=== PATIENT | female | born 1950 | race Caucasian/White ===

== ENCOUNTER 2018-07-03 15:48 | Outpatient (REF) | payer MEDICARE, OTHER, SELFPAY ==
[2018-07-03 22:30] LABS: Abs Immature Grans 0.02 k/cumm (0.0-0.09); Absolute Basophil Count 0.04 k/cumm (0.0-0.2); Absolute Lymphocyte Count 1.82 k/cumm (1.2-3.4); Absolute Monocyte Count 0.69 k/cumm (0.11-0.7); Basophils % 0.5; Eosinophils % 1.3; HCT 50.3 % (36.0-46.0); HGB 17.2 g/dL (12.0-15.5); Immature Grans % 0.3; Lymphocytes % 23.4; Mean Corp. HGB Concentration 34.2 g/dL (32.0-36.0); Mean Corpuscular Hemoglobin 30.8 pg (27.0-33.0); Monocytes % 8.9; Neutrophils % 65.6; Platelet Count 247 x1000/uL (130-400); RBC 5.59 m/cumm (4.00-5.20); RBC Distribution Width 12.9 % (11.7-14.6); White Blood Cell Count 7.77 k/cumm (4.4-10.8)
[2018-07-03 22:41] LABS: Hemoglobin A1C 6.6 % (4.5-6.2)
[2018-07-03 22:48] LABS: ALT 38 U/L (12-78); AST 25 U/L (15-37); Alkaline Phosphatase 85 U/L (46-116); BUN 22 mg/dL (7-18); Bilirubin, Total 0.9 mg/dL (0.2-1.0); CREATININE 1.11 mg/dL (0.55-1.02); Calcium 9.7 mg/dL (8.5-10.1); Chloride 100 mmol/L (98-107); Cholesterol 282 mg/dL (50-200); Estimated GFR 49.03 (mL/min/1.73m2); Glucose 97 mg/dL (70-100); HDL Cholesterol 40 mg/dL (40-60); LDL CHOLESTEROL 201 mg/dL (<100); Magnesium 1.8 mg/dL (1.8-2.4); Potassium 3.7 mmol/L (3.5-5.1); Sodium 140 mmol/L (136-145); TSH (W/Ref FT4) 0.84 uIU/mL (0.358-3.74); Total Protein 7.7 g/dL (6.4-8.2); Triglyceride 325 mg/dL (30-150)
== END 2018-07-03 16:08 ==
LOC: NCHCN 15:48
PROVIDERS: Visit Provider Family Medicine
DX: E78.5 Hyperlipidemia, unspecified (principal); E11.9 Type 2 diabetes mellitus without complications; D45 Polycythemia vera; E66.9 Obesity, unspecified
CPT/HCPCS: 80053; 80061; 83721; 83036; 83735; 84443; 85025

== ENCOUNTER 2018-12-21 07:00 | Inpatient (IN) | payer MEDICARE, OTHER, SELFPAY ==
[2018-12-21] VITALS (119 sets, daily range): BP systolic 112–219; BP diastolic 62–164; PULSE 59–179; RESP 14–39; TEMP 36.8–37.4; O2SAT 83–95
[2018-12-21] MEDS: dilTIAZem 25 MG/5 ML VIAL 20 MG IVP (07:38)
[2018-12-21 07:51] LABS: Abs Immature Grans 0.03 k/cumm (0.0-0.09); Absolute Basophil Count 0.01 k/cumm (0.0-0.2); Absolute Eosinophil Count 0.01 k/cumm (0.0-0.7); Absolute Lymphocyte Count 1.09 k/cumm (1.2-3.4); Absolute Monocyte Count 0.83 k/cumm (0.11-0.7); Basophils % 0.1; Eosinophils % 0.1; HCT 49.4 % (36.0-46.0); HGB 16.8 g/dL (12.0-15.5); Immature Grans % 0.3; Lymphocytes % 9.3; Mean Corpuscular Hemoglobin 30.1 pg (27.0-33.0); Mean Corpuscular Volume 88.4 fL (80-95); Mean Platelet Volume 11.3 fL (8.0-11.0); Monocytes % 7.1; Neutrophils % 83.1; Platelet Count 233 x1000/uL (130-400); RBC 5.59 m/cumm (4.00-5.20); RBC Distribution Width 13.5 % (11.7-14.6); White Blood Cell Count 11.71 k/cumm (4.4-10.8)
[2018-12-21 07:53] LABS: Absolute Neutrophil Count 9.73 k/cumm (1.2-6.7)
[2018-12-21 08:03] LABS: INR 1.1 (0.9-1.1); PTT Activated 25.2 sec (21.0-31.4); Prothrombin Time 10.7 sec (9.3-11.0)
--- NOTE | 2018-12-21 08:06 | DI.RAD_ITS ---
SYMPTOM/DIAGNOSIS: COUGH CHEST: Portable AP view. Comparison 10/01/14. Heart size and pulmonary vasculature appear stable. Sternal wires are in place. The lungs show no focal consolidating infiltrates, No effusions or pneumothoraces are identified. There is plate atelectasis seen in the left mid lung. IMPRESSION: No definite acute pulmonary process.
--- NOTE | 2018-12-21 08:13 | ED.GENADUL_ITS ---
Discharge Plan Disposition Patient Disposition: [facility] INPATIENT Condition: Stable Discharge Details Chief Complaint: SOB Clinical Impression: Atrial fibrillation with rapid ventricular response Primary Care Provider: Kamilla Silvestre ED Midlevel Provider: Roland Gonzales ED Provider: Provider,Temporary Home Meds and New Rx's Prescriptions: No Action Eliquis 5 MG tablet 5 mg PO BID Qty: 60 RF: 11 lisinopril 20 MG tablet 10 mg PO DAILY RF: 0 metoprolol succinate 50 MG tablet extended release 24 hr 100 mg PO DAILY RF: 0 aspirin 325 MG tablet 325 mg PO DAILY AM RF: 0 nitroglycerin 0.4 MG tablet, sublingual 0.4 mg Sublingual PER PROTOCOL RF: 0 cholecalciferol (vitamin D3) 1,000 UNITS tablet 1,000 units PO DAILY RF: 0 metformin 500 mg Tablet 500 mg PO DAILY RF: 0 hydrochlorothiazide 25 mg Tablet 25 mg PO DAILY RF: 0 calcium carbonate 430 mg calcium (1,000 mg) Tablet,Chewable 1,000 mg PO DAILY RF: 0 Medical Decision Making 68 yo female with hx of afib on eliquis, cad, htn, comes in with 3 days of slowly worsening shortness of breath. She arrives with afib in HR 140-170 other garcia stable bP. She also has had a productive cough, no recent travel or immobilization. She Is speaking in full sentences, diminished breath sounds at bases bilaterally, no calf tenderness or pleuritic chest pain. suspect her symptoms are due to her afib with rvr. Will eval for anemia, electrolyte abnormalities and also obtain xray to eval for pna and tx her afib with rvr with dilt pt's labs show mild low mag otherwise unremarkable, HR now in 110-130 range on diltiazem drip. Feels much better with lower HR. Will admit for afib with rvr Differential Diagnosis afib with rvr, electrolyte abnormality, acs Medical Records Medical records reviewed: Yes I reviewed the patient's medical records. Imaging Data Radiologic Study: Attestation: I personally reviewed and interpreted this imaging study as follows: Imaging: X-Ray My impression: no acute findings Lab Data Lab results reviewed: Yes I reviewed the patient's lab results. ECG Data Attestation: I personally reviewed and interpreted this ECG (s) as follows: Prior ECG tracings: not available for review Interpretation: afib, rates of 157, qtc 443 HPI General Mode of arrival: wheelchair . Date/Time Provider Initiated Documentation: 12/21/18 07:42 . Limitations to Documentation: no limitations . Information obtained by: patient . History of Present Illness 68 year old F presents to the emergency department with the chief complaint of shortness of breath, described as moderate, Patient reports no radiation. Patient started experiencing this day(s) (3) and it has been constant. No relieving factors improve symptom(s), No exacerbating factors reported . Patient notes cough. Patient did receive the following treatments prior to arrival, none Related Data Home Medications Medication Instructions Recorded Confirmed aspirin 325 mg PO DAILY AM 11/29/12 12/21/18 lisinopril 10 mg PO DAILY 11/29/12 12/21/18 metoprolol succinate 100 mg PO DAILY 11/29/12 12/21/18 nitroglycerin 0.4 mg SUBLINGUAL PER PROTOCOL 11/29/12 12/21/18 cholecalciferol (vitamin D3) 1,000 units PO DAILY 09/26/13 12/21/18 apixaban [Eliquis] 5 mg PO BID #60 tab-cap 10/21/16 12/21/18 calcium carbonate 1,000 mg PO DAILY 12/21/18 12/21/18 hydrochlorothiazide 25 mg PO DAILY 12/21/18 12/21/18 metformin 500 mg PO DAILY 12/21/18 12/21/18 Allergies Allergy/AdvReac Type Severity Reaction Status Date / Time iohexol [From Omnipaque 140] Allergy Skin Rash Verified 12/21/18 08:03 Sulfa (Sulfonamide Allergy Unverified 12/21/18 08:03 Antibiotics) erythromycin base AdvReac GI Unverified 12/21/18 08:03 [Erythromycin Base] metal Allergy Intermediate Skin Rash Uncoded 12/21/18 08:03 General Stated Complaint: SOB JOSE DE JESUS: 2 Review of Systems Review of Systems All systems reviewed & are unremarkable except as noted in HPI and below Constitutional Denies chills, Denies fever(s) and Denies weakness Cardiovascular Denies chest pain Gastrointestinal Denies abdominal pain, Denies nausea and Denies vomiting Genitourinary Denies dysuria Musculoskeletal Denies joint swelling Integumentary/Breasts Denies rash Neurologic Denies weakness PFSH Social History Smoking/Tobacco Use Status: Former Tobacco Use Alcohol Intake: never Drug use: Never Do you feel safe at home: Yes Exam Const General: no acute distress Orientation: alert HENMT Head: normal to inspection Ears: external ears normal General nose exam: external nose normal Mouth: moist mucous membranes Eyes General: appearance normal, both eyes and all related structures Neck Neck: normal visual inspection Resp Effort & Inspection: normal respiratory effort and able to speak in complete sentences Cardio Rate: tachycardic Skin General skin exam: no rashes or lesions noted Neuro General: alert and oriented x3 Extrem General: normal to inspection Psych Mental Status: mental status grossly normal Course Vital Signs Respiratory Rate 24 12/21/18 06:59 Pulse Oximetry 95 12/21/18 06:59 Temperature 37.3 C 12/21/18 07:07 Temperature Source Tympanic 12/21/18 07:07 Pulse 160 H 12/21/18 07:38 Pulse 138 H 12/21/18 07:40 Respiratory Rate 23 12/21/18 07:40 Blood Pressure 151/84 H 12/21/18 07:38 Blood Pressure Mean 110 12/21/18 07:31 Pulse Oximetry 93 L 12/21/18 07:40 Oxygen Delivery Method Room Air 12/21/18 07:07 Oxygen Flow Rate 0 12/21/18 07:07 Pain Level 0 12/21/18 07:07 Lab/Test Results Lab/Test Results: Laboratory Tests Range/Units 12/21/18 12/21/18 12/21/18 07:18 07:38 07:38 WBC (4.4-10.8) k/cumm 11.71 H RBC (4.00-5.20) m/cumm 5.59 H Hgb (12.0-15.5) g/dL 16.8 H Hct (36.0-46.0) % 49.4 H MCV (80-95) fL 88.4 MCH (27.0-33.0) pg 30.1 MCHC (32.0-36.0) g/dL 34.0 RDW (11.7-14.6) % 13.5 Plt Count (130-400) x1000/uL 233 MPV (8.0-11.0) fL 11.3 H Immature Gran % 0.3 Neutrophils % 83.1 Lymphocytes % 9.3 Monocytes % 7.1 Eosinophils % 0.1 Basophils % 0.1 Absolute Neutrophils (1.2-6.7) k/cumm 9.73 H Absolute Lymphocytes (1.2-3.4) k/cumm 1.09 L Absolute Monocytes (0.11-0.7) k/cumm 0.83 H Absolute Eosinophils (0.0-0.7) k/cumm 0.01 Absolute Basophils (0.0-0.2) k/cumm 0.01 PT (9.3-11.0) sec 10.7 INR (0.9-1.1) 1.1 APTT (21.0-31.4) sec 25.2 Sodium Cancelled Potassium Cancelled Chloride Cancelled Carbon Dioxide Cancelled Anion Gap Cancelled BUN Cancelled Creatinine Cancelled Estimated GFR/1.73 m2 Cancelled Glucose Cancelled Calcium Cancelled Total Bilirubin Cancelled AST Cancelled ALT Cancelled Alkaline Phosphatase Cancelled Total Protein Cancelled Albumin Cancelled Critical Care Time Critical Care Time: Yes Total Critical Care Time: 60 (minutes) Attestation: time spent initiating iv diltiazem in patient with afib with rapid verntricular response, ekg and lab review, and frequent reassessments/hd monitoring in patient with potential to deteriorate at any time
[2018-12-21 08:20] LABS: ALT 114 U/L (12-78); AST 47 U/L (15-37); Albumin 3.3 g/dL (3.4-5.0); Alkaline Phosphatase 87 U/L (46-116); Anion Gap 12.9 mmol/L (3-11); BUN 17 mg/dL (7-18); Bilirubin, Total 1.6 mg/dL (0.2-1.0); CO2 25.1 mmol/L (21.0-32.0); CREATININE 1.48 mg/dL (0.55-1.02); Calcium 8.8 mg/dL (8.5-10.1); Chloride 101 mmol/L (98-107); Estimated GFR 35.07 (mL/min/1.73m2); Glucose 204 mg/dL (70-100); Magnesium 1.7 mg/dL (1.8-2.4); NT-proBNP 5560 pg/mL; Potassium 3.8 mmol/L (3.5-5.1); Sodium 139 mmol/L (136-145); Total Protein 7.1 g/dL (6.4-8.2); Troponin I 0.03 ng/mL (0.00-0.06)
[2018-12-21] MEDS: dilTIAZem 125 MG in Normal Saline 100 ML IV (08:35)
--- NOTE | 2018-12-21 08:55 | NUR.NOTE ---
pt provided with meal tray Nursing Note:
[2018-12-21] MEDS: MAGNESIUM SULFATE 2 GM/50 ML BAG IVPB (09:31)
[2018-12-21] MEDS: Furosemide 20 MG/2 ML VIAL IVP (09:58)
[2018-12-21 10:38] LABS: Bilirubin Negative (Negative); Blood Trace-lysed (Negative); Clarity Clear; Glucose Negative (Negative); Ketones Negative (Negative); Leukocyte Esterase Negative (Negative); Nitrite Negative (Negative); Urobilinogen 0.2 EU/dL (Up TO 0.2); pH 5.5 (5-8)
[2018-12-21 10:54] LABS: Bacteria Rare HPF (Negative); C & S Indicated? C&S Done As Ordered; Casts Negative LPF (Negative); Crystals Negative HPF (Negative); Epithelial Cells Negative HPF (Negative); Mucus Negative (Negative); Other Cells Few Renal (Negative)
--- NOTE | 2018-12-21 12:37 | W.PM.HP.N ---
Date of service: 12/21/18 Time of Service: 12:37 Assessment and Plan (1) Sepsis: Current visit: Yes Status: Acute Likely due to bronchitis. Obtain blood cultures, sputum C&S. Treat with empiric doxycycline, rocephin. Provide antitussives, steroids, nebs. (2) Rapid atrial fibrillation: Current visit: Yes Status: Acute Likely due to above. Treat above infection. Wean from cardizem gtt as tolerated. Resumed home metoprolol. Continue anticoagulation. (3) Acute bronchitis: Current visit: Yes Status: Acute As above (4) Acute CHF: Current visit: Yes Status: Acute Likely due to rapid ventricular rate. S/p 1 dose of lasix in ED. Monitor I/O's, daily weights. May require more diuresis. Check echo. Check TSH. R/o ACS. (5) Hemoptysis: Current visit: Yes Status: Acute Mild, in setting of anticoagulation - will monitor for recurrence - if significant, will hold anticoagulation. (6) Prediabetes: Current visit: Yes Status: Acute Hold metformin. We expect steroid-induced hyperglycemia. Provide SSI. (7) Obstructive sleep apnea: Current visit: Yes Status: Suspected Needs an outpatient sleep studies. (8) Erythrocytosis: Current visit: Yes Status: Chronic Suspect patient has pulmonary hypertension due to JESICA. Will need a sleep study; echo is being obtained. (9) Abnormal LFTs: Current visit: Yes Status: Acute Etiology unclear. Patient reports no symptoms. Will trend. Consider imaging if sx occur. Will check hepatitis panel. (10) Hypomagnesemia: Current visit: Yes Status: Acute replete and monitor (11) Discharge planning issues: Current visit: Yes Status: Acute Advanced directives discussed. The patient would like to be DNR/DNI. She does not have a COLST form with her; she is not sure if there is a document. Being admitted to the ICU for cardizem gtt. (12) DVT prophylaxis: Current visit: Yes Status: Acute Continue home therapeutic eliquis History of Present Illness Chief Complaint: I thought I had a cold or a pneumonia Narrative: Ms Davis is a 68 year old female with PMHx of CAD s/p 2 stents, chronic Afib on anticoagulation with eliquis, prediabetes, Hypertension, CKD, who presented to [facility] ED today complaining of shortness of breath, productive cough with green blood-tinged sputum, and wheezing for several days, so bad today that she had to come to the hospital. She did not have any chest pain, dizziness, or palpitations. She was surprised to find out that she was in Rapid Afib with HR of 160's. She was treated with cardizem bolus and drip. We were asked to admit the patient for further care. The patient states that she also has had rhinorrhea, sore throat, some ankle swelling. She denies abdominal pain, urinary symptoms, diarrhea, constipation, or blood in stool. Review of Systems Review of Systems 12 systems reviewed. Pertinent positives and negatives are as per HPI. PFSH Medical History Atrial fibrillation (Chronic 04/29/14) Hypertension (Chronic) CAD (coronary artery disease) (Chronic) Obesity (Chronic) BMI 33.0-33.9,adult (Chronic) Tobacco abuse (Resolved) Osteoarthritis (Chronic) H/O hypercalcemia (Chronic) H/O hyperparathyroidism (Chronic) Elevated hematocrit (Chronic) Elevated hemoglobin (Chronic) Impaired fasting glucose (Chronic) Metabolic syndrome (Chronic) Hypertensive CKD (chronic kidney disease) (Chronic) Surgical History H/O parathyroidectomy (Chronic) Hx of cardiac cath (Chronic) H/O benign neoplasm (Resolved) Family History Other Heart disease Social History Smoking/Tobacco Use Status: Former Tobacco Use Alcohol Intake: never Drug use: Never Do you feel safe at home: Yes Meds Home Medications Medication Instructions Recorded Confirmed Type aspirin 325 mg PO DAILY AM 11/29/12 12/21/18 History nitroglycerin 0.4 mg SUBLINGUAL PER PROTOCOL 11/29/12 12/21/18 History cholecalciferol (vitamin D3) 1,000 units PO DAILY 09/26/13 12/21/18 History apixaban [Eliquis] 5 mg PO BID #60 tab-cap 10/21/16 12/21/18 History calcium carbonate 1,000 mg PO DAILY 12/21/18 12/21/18 History hydrochlorothiazide 25 mg PO DAILY PRN PRN 12/21/18 12/21/18 History lisinopril 10 mg PO DAILY 12/21/18 12/21/18 History metformin 500 mg PO DAILY 12/21/18 12/21/18 History metoprolol succinate [Toprol XL] 50 mg PO DAILY 12/21/18 12/21/18 History Allergies Allergy/AdvReac Type Severity Reaction Status Date / Time iohexol [From Omnipaque 140] Allergy Skin Rash Verified 12/21/18 08:03 Sulfa (Sulfonamide Allergy Unverified 12/21/18 08:03 Antibiotics) erythromycin base AdvReac GI Unverified 12/21/18 08:03 [Erythromycin Base] metal Allergy Intermediate Skin Rash Uncoded 12/21/18 08:03 Exam Narrative Exam Narrative: General: Very pleasant Middle-aged female, A&Ox3, laying comfortably in bed at a 15 degree angle, coughing Neurological: A&Ox3, no focal deficits Psychiatric: appropriate speech pattern, content, affect Skin: visible skin intact HEENT: Atraumatic, normocephalic, EOMI, dry MM, oropharynx poorly visible, Mallampati class IV, large neck diameter, no goiter or JVD, no cervical lymphadenopathy; low thyroidectomy (?) scar noted, well healed Cardiovascular: irregularly irregular rhythm, tachycardic Lungs: Wheezing on expiration B Gastrointestinal: abdomen is soft, nontender, nondistended Genitourinary: deferred Extremities: trace edema B ankles, no c/c. Results Imaging Additional studies: CXR: No definite acute pulmonary process. EKG 12/21/18: Afib, HR 157, inferior lateral ST segment depressions; nonspecific ST changes. Labs : 12/21/18 07:38 12/21/18 07:38 Laboratory Results - last 24 hr 12/21/18 12/21/18 12/21/18 07:18 07:38 07:38 WBC RBC Hgb Hct MCV MCH MCHC RDW Plt Count MPV Immature Gran % Neutrophils % Lymphocytes % Monocytes % Eosinophils % Basophils % Absolute Neutrophils Absolute Lymphocytes Absolute Monocytes Absolute Eosinophils Absolute Basophils PT 10.7 INR 1.1 APTT 25.2 Sodium Cancelled 139 Potassium Cancelled 3.8 Chloride Cancelled 101 Carbon Dioxide Cancelled 25.1 Anion Gap Cancelled 12.9 H BUN Cancelled 17 Creatinine Cancelled 1.48 H Estimated GFR/1.73 m2 Cancelled 35.07 Glucose Cancelled 204 H Calcium Cancelled 8.8 Magnesium 1.7 L Total Bilirubin Cancelled 1.6 H AST Cancelled 47 H ALT Cancelled 114 H Alkaline Phosphatase Cancelled 87 Troponin I 0.03 NT-Pro-B Natriuret Pep 5560 H Total Protein Cancelled 7.1 Albumin Cancelled 3.3 L Urine Color Urine Clarity Urine pH Ur Specific [place] Urine Protein Urine Ketones Urine Blood Urine Nitrite Urine Bilirubin Urine Urobilinogen Ur Leukocyte Esterase Urine RBC Urine WBC Ur Epithelial Cells Urine Crystals Urine Bacteria Urine Casts Urine Mucus Urine Other Ur Culture Indicated? Urine Glucose 12/21/18 12/21/18 12/21/18 07:38 10:18 14:00 WBC 11.71 H RBC 5.59 H Hgb 16.8 H Hct 49.4 H MCV 88.4 MCH 30.1 MCHC 34.0 RDW 13.5 Plt Count 233 MPV 11.3 H Immature Gran % 0.3 Neutrophils % 83.1 Lymphocytes % 9.3 Monocytes % 7.1 Eosinophils % 0.1 Basophils % 0.1 Absolute Neutrophils 9.73 H Absolute Lymphocytes 1.09 L Absolute Monocytes 0.83 H Absolute Eosinophils 0.01 Absolute Basophils 0.01 PT INR APTT Sodium Potassium Chloride Carbon Dioxide Anion Gap BUN Creatinine Estimated GFR/1.73 m2 Glucose Calcium Magnesium Total Bilirubin AST ALT Alkaline Phosphatase Troponin I Cancelled NT-Pro-B Natriuret Pep Total Protein Albumin Urine Color Yellow Urine Clarity Clear Urine pH 5.5 Ur Specific [place] 1.020 Urine Protein 100 H Urine Ketones Negative Urine Blood Trace-lysed H Urine Nitrite Negative Urine Bilirubin Negative Urine Urobilinogen 0.2 Ur Leukocyte Esterase Negative Urine RBC 3-5 H Urine WBC 3-5 Ur Epithelial Cells Negative Urine Crystals Negative Urine Bacteria Rare Urine Casts Negative Urine Mucus Negative Urine Other Few renal Ur Culture Indicated? C&s done as ordered Urine Glucose Negative Last Vital Signs Temp 37.2 C 12/21/18 11:20 Pulse 108 H 12/21/18 11:20 Resp 18 12/21/18 11:20 BP 121/83 12/21/18 11:20 Pulse Ox 94 L 12/21/18 11:20
[2018-12-21] MEDS: guaiFENesin 600 MG TABCR PO ×2 (13:36→20:53)
[2018-12-21] MEDS: Metoprolol CR 50 MG TABCR PO (13:37)
[2018-12-21 13:40] LABS: FREE T4 1.23 ng/dL (0.76-1.46); TSH 1.26 uIU/mL (0.358-3.74)
[2018-12-21] MEDS: methylPREDNISolone SUCC 125 MG VIAL 80 MG IVP ×2 (14:18→22:16)
[2018-12-21] MEDS: cefTRIAXone 1 GM/50 ML BAG IVPB (14:19)
--- NOTE | 2018-12-21 14:20 | MERGE_ITS ---
*[facility]* *[facility]* [address] [place] [address] Date of study: 12/21/2018 Transthoracic Echocardiography M-mode, complete 2D, complete spectral Doppler, and color Doppler *STUDY CONCLUSIONS* Summary: 1. Left ventricle: The cavity size was normal. Wall thickness was increased in a pattern of moderate LVH. Systolic function was hyperdynamic. The estimated ejection fraction was 65-70%. The study was not technically sufficient to allow evaluation of LV diastolic dysfunction due to atrial fibrillation. Doppler parameters are consistent with high ventricular filling pressure. 2. Ventricular septum: The outflow septum had a sigmoid appearance. 3. Mitral valve: There was mild regurgitation. 4. Left atrium: The atrium was mildly dilated. 5. Right ventricle: The cavity size was normal. Wall thickness was normal. Systolic function was normal. 6. Atrial septum: No defect or patent foramen ovale was identified. 7. Pulmonary arteries: Pulmonary systolic pressure was in the range of 40mm Hg to 50mm Hg. 8. Inferior vena cava: The vessel was patent and normal in size. The respirophasic diameter changes were in the normal range (greater than or equal to 50%), consistent with normal central venous pressure. *PATIENT PRESENTATION* Height: 162.6cm ((64in) ) S/D Pressure: 121 / 83 Weight: 91.2kg ((200.6lb) ) BSA: 2.07m^2 Test start time: 02:53 PM. Test stop time: 03:55 PM. PERFORMING Unknown CONSULTING Cande Mo PERFORMING [facility] REMOTE CODERS RT Aurelio (R)(CT), RDZACK ORDERING Sean Sophiareynaldo Mayergan Sophia A *PROCEDURE DATA* Procedure information: The patient was identified by two identifiers. This study was interpreted by [facility]. Pertinent images and digital data are archived for permanent storage and are available for subsequent review. Comparison was made to the study of April 2014. Study status: Routine. Transthoracic echocardiography. M-mode, complete 2D, complete spectral Doppler, and color Doppler. A Transthoracic Echocardiogram was performed. Scanning was performed from the parasternal, apical, subcostal, and suprasternal notch acoustic windows. Images were obtained using an [id number] cardiac ultrasound machine. Image quality was adequate. Study completion: The patient tolerated the procedure well. History: PMH: Rapid afib. *CARDIAC ANATOMY* Left ventricle: The cavity size was normal. Wall thickness was increased in a pattern of moderate LVH. Systolic function was hyperdynamic. The estimated ejection fraction was 65-70%. The study was not technically sufficient to allow evaluation of LV diastolic dysfunction due to atrial fibrillation. Doppler parameters are consistent with high ventricular filling pressure. Aortic valve: Mildly thickened, mildly calcified leaflets. Doppler: There was no stenosis. There was no regurgitation. VTI ratio of LVOT to aortic valve: 0.73. Valve area (VTI): 2.1cm^2. Indexed valve area (VTI): 1cm^2/m^2. Peak velocity ratio of LVOT to aortic valve: 0.64. Valve area (Vmax): 1.8cm^2. Indexed valve area (Vmax): 0.9cm^2/m^2. Mean velocity ratio of LVOT to aortic valve: 0.72. Valve area (Vmean): 2cm^2. Indexed valve area (Vmean): 1cm^2/m^2. Mean gradient (S): 4.2mm Hg. Peak gradient (S): 6.8mm Hg. Aorta: Aortic root: The aortic root was normal in size. Ascending aorta: The ascending aorta was normal in size. Mitral valve: Doppler: There was no evidence for stenosis. There was mild regurgitation. Peak gradient (D): 5.7mm Hg. Left atrium: The atrium was mildly dilated. Atrial septum: No defect or patent foramen ovale was identified. Right ventricle: The cavity size was normal. Wall thickness was normal. Systolic function was normal. Ventricular septum: The outflow septum had a sigmoid appearance. Pulmonic valve: Doppler: There was no evidence for stenosis. There was no significant regurgitation. Peak gradient (S): 3.1mm Hg. Tricuspid valve: Doppler: There was mild regurgitation. Pulmonary artery: Poorly visualized. Pulmonary systolic pressure was in the range of 40mm Hg to 50mm Hg. Right atrium: The atrium was normal in size. Pericardium: There was no pericardial effusion. Systemic veins: Inferior vena cava: Well visualized. The vessel was patent and normal in size. The respirophasic diameter changes were in the normal range (greater than or equal to 50%), consistent with normal central venous pressure. Baseline ECG: Atrial fibrillation. Measurements Left ventricle Value Reference LV ID, ED, PLAX (L) 3.3 cm 3.5 - 6.0 LV ID, ES, PLAX (L) 1.9 cm 2.1 - 4.0 LV PW thickness, ED, PLAX 1.4 cm LV end-diastolic volume, 1-p A2C 58 ml LV ejection fraction, 1-p A2C 75 % LV end-diastolic volume, 1-p A4C 43 ml LV ejection fraction, 1-p A4C 63 % LV e', lateral 0.069 m/sec LV E/e', lateral 17 LV e', medial 0.061 m/sec LV E/e', medial 20 LV e', average 0.065 m/sec LV E/e', average 18 Ventricular septum Value Reference IVS thickness, ED, PLAX 1.6 cm LVOT Value Reference LVOT ID, A-P 1.9 cm LVOT area 2.8 cm^2 LVOT peak velocity, S 0.84 m/sec LVOT mean velocity, S 0.69 m/sec LVOT VTI, S 14.7 cm LVOT peak gradient, S 2.8 mm Hg LVOT mean gradient, S 2 mm Hg Stroke volume (SV), LVOT DP 41 ml Stroke index (SV/bsa), LVOT DP 20 ml/m^2 Aortic valve Value Reference Aortic valve peak velocity, S 1.3 m/sec Aortic valve mean velocity, S 0.96 m/sec Aortic valve VTI, S 20.0 cm Aortic mean gradient, S 4.2 mm Hg Aortic peak gradient, S 6.8 mm Hg VTI ratio, LVOT/AV 0.73 Aortic valve area, VTI 2.1 cm^2 Velocity ratio, peak, LVOT/AV 0.64 Aortic valve area, peak velocity 1.8 cm^2 Velocity ratio, mean, LVOT/AV 0.72 Aortic valve area, mean velocity 2 cm^2 Aortic valve area/bsa, mean velocity 1 cm^2/m^2 Aorta Value Reference Aortic root ID, ED 3.0 cm Ascending aorta ID, A-P, S 3.1 cm Left atrium Value Reference LA ID, A-P, ES 4.3 cm LA ID/bsa, A-P 2.1 cm/m^2 <=2.2 LA area, ES, A4C (H) 23.5 cm^2 8.8 - 23.4 LA area, ES, A2C 22 cm^2 LA volume/bsa, ES, 1-p A4C 39 ml/m^2 LA volume, ES, 2-p 70 ml LA volume/bsa, ES, 2-p 34 ml/m^2 LA/aortic root ratio 1.41 Mitral valve Value Reference Mitral E-wave peak velocity 1.2 m/sec Mitral peak gradient, D 5.7 mm Hg Tricuspid valve Value Reference Tricuspid regurg peak velocity 3 m/sec Tricuspid peak RV-RA gradient 35.7 mm Hg Right atrium Value Reference RA area, ES, A4C 17.2 cm^2 8.3 - 19.5 Pulmonic valve Value Reference Pulmonic peak gradient, S 3.1 mm Hg Legend: (L) and (H) joao values outside specified reference range. I have personally reviewed the images and have reviewed and edited the reported findings. Electronically signed by Roland Marrero MD 12/21/2018 16:52
[2018-12-21] MEDS: Acetaminophen 325 MG TAB PO (14:44)
[2018-12-21] MEDS: Benzonatate 200 MG CAP PO ×2 (14:46→20:53)
--- NOTE | 2018-12-21 14:59 | CHAPLAIN ---
Edwige and I know each other from outside the hospital. She told me that she thought she had a cold or pneumonia, but turned out to be AFib. Her son and daughter have visited. She well supported by them. Edwige was listening to the [place] music when I visited. 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
[2018-12-21] MEDS: Insulin Aspart 300 UNITS/3 ML PEN SC ×2 (16:51→22:18)
[2018-12-21] MEDS: DOXYCYCLINE 100 MG in Normal Saline 100 ML IVPB (16:53)
[2018-12-21] MEDS: Apixaban 5 MG TAB PO (20:53)
[2018-12-21] MEDS: dilTIAZem 125 MG in Normal Saline 100 ML 10 MG IV (22:29)
[2018-12-21 22:35] LABS: Troponin I 0.02 ng/mL (0.00-0.06)
[2018-12-22] VITALS (31 sets, daily range): BP systolic 99–173; BP diastolic 63–101; PULSE 64–127; RESP 1–26; TEMP 36–36.6; O2SAT 94–100
[2018-12-22] MEDS: DOXYCYCLINE 100 MG in Normal Saline 100 ML IVPB ×2 (04:02→15:53)
[2018-12-22] MEDS: methylPREDNISolone SUCC 125 MG VIAL 80 MG IVP (05:43)
[2018-12-22] MEDS: Albuterol/Ipratropium 3 ML UPD VIAL UPD ×4 (05:45→23:04)
[2018-12-22 07:14] LABS: Abs Immature Grans 0.03 k/cumm (0.0-0.09); Absolute Monocyte Count 0.29 k/cumm (0.11-0.7); HCT 49.5 % (36.0-46.0); HGB 16.7 g/dL (12.0-15.5); Immature Grans % 0.2; Lymphocytes % 8.7; Mean Corp. HGB Concentration 33.7 g/dL (32.0-36.0); Mean Corpuscular Hemoglobin 29.8 pg (27.0-33.0); Mean Corpuscular Volume 88.4 fL (80-95); Mean Platelet Volume 11.3 fL (8.0-11.0); Monocytes % 2.4; Neutrophils % 88.7; Platelet Count 225 x1000/uL (130-400); RBC Distribution Width 13.5 % (11.7-14.6); White Blood Cell Count 12.23 k/cumm (4.4-10.8)
[2018-12-22 07:19] LABS: Absolute Lymphocyte Count 1.06 k/cumm (1.2-3.4); Absolute Neutrophil Count 10.85 k/cumm (1.2-6.7)
[2018-12-22 07:26] LABS: Anion Gap 11.2 mmol/L (3-11); BUN 27 mg/dL (7-18); CO2 25.8 mmol/L (21.0-32.0); Calcium 9.1 mg/dL (8.5-10.1); Chloride 100 mmol/L (98-107); Estimated GFR 49.39 (mL/min/1.73m2); Glucose 225 mg/dL (70-100); Magnesium 2.4 mg/dL (1.8-2.4); Potassium 3.9 mmol/L (3.5-5.1); Sodium 137 mmol/L (136-145)
--- NOTE | 2018-12-22 07:58 | PDOC.CMIN ---
- If Service Date Differs Date of service: 12/22/18 Time of Service: 07:58 Care Management Initial Assess REASON FOR HOSPITALIZATION:: Sepsis PAST MEDICAL HISTORY/PAST SURGICAL HISTORY:: Medical History: Atrial fibrillation. Hypertension (Chronic). CAD (coronary artery disease) (Chronic). Obesity (Chronic). BMI 33.0-33.9,adult (Chronic). Tobacco abuse (Resolved). Osteoarthritis (Chronic). H/O hypercalcemia (Chronic). H/O hyperparathyroidism (Chronic). Elevated hematocrit (Chronic). Elevated hemoglobin (Chronic). Impaired fasting glucose (Chronic). Metabolic syndrome (Chronic). Hypertensive CKD (chronic kidney disease) (Chronic). Surgical History. H/O parathyroidectomy (Chronic). Hx of cardiac cath (Chronic). H/O benign neoplasm (Resolved) PREVIOUS FUNCTIONAL STATUS/SOCIAL/FAMILY SUPPORTS:: Edwige lives alone in a single family home in [facility]. It is on 2 levels with the bedrooms being upstairs. She has been for 27 years. Edwige worked for [employer] for many years but is now retired. 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 Edwige has 2 children and 3 grandchildren who live locally and are very supportive. CURRENT FUNCTIONAL STATUS:: Edwige was Sitting up in bed chatting with her very close friend Shalonda. She was smiling and engaged readily with CM and was agreeable to answering questions. Edwige states that she came to the hospital because she couldnt breathe. She explained that this is due to her afib but that it is a different presentation than last time. She reports that she is feeling better this morning but knows she will likely need to remain hospitalized for a while longer. ADVANCE DIRECTIVES:: None on file. provided Edwige with [facility] Advanced Directives forms at her request. Has patient been provided with information about the portal?: Yes Did the patient sign up for the portal?: No CODE STATUS:: DNR/DNI INSURANCE COVERAGE / FINANCIAL ISSUES:: Medicare. [employer] CURRENT HOME/COMMUNITY SERVICES/EQUIPMENT:: None currently PRIMARY CARE PHYSICIAN:: Cande Mo POTENTIAL DISCHARGE NEEDS:: Follow up visit with PCP and discharge plan of care PATIENT/FAMILY EDUCATION NEEDS:: Discharge Plan, limitations, follow up plan of care, Ask Me Three. TRANSPORTATION:: Via private automobile with friends or family when ready PLAN:: Edwige has had a change in status from ICU level of care to acute care. She is receiving po medication to control her heart rate and is undergoing further testing. Edwige will likely be discharged home with no additional services. CM will continue to provide support to patient, family, care team and discharge plan of care.
[2018-12-22 08:03] LABS: ALT 82 U/L (12-78); AST 24 U/L (15-37); Albumin 3.2 g/dL (3.4-5.0); Alkaline Phosphatase 84 U/L (46-116); Bilirubin, Direct 0.31 mg/dL (0.00-0.20); Bilirubin, Total 1.4 mg/dL (0.2-1.0); Total Protein 7.2 g/dL (6.4-8.2)
--- NOTE | 2018-12-22 08:03 | INITIAL_ITS ---
- If Service Date Differs Date of service: 12/22/18 Time of Service: 07:58 Care Management Initial Assess REASON FOR HOSPITALIZATION:: Sepsis PAST MEDICAL HISTORY/PAST SURGICAL HISTORY:: Medical History: Atrial fibrillation. Hypertension (Chronic). CAD (coronary artery disease) (Chronic). Obesity (Chronic). BMI 33.0-33.9,adult (Chronic). Tobacco abuse (Resolved). Osteoarthritis (Chronic). H/O hypercalcemia (Chronic). H/O hyperparathyroidism (Chronic). Elevated hematocrit (Chronic). Elevated hemoglobin (Chronic). Impaired fasting glucose (Chronic). Metabolic syndrome (Chronic). Hypertensive CKD (chronic kidney disease) (Chronic). Surgical History. H/O parathyroidectomy (Chronic). Hx of cardiac cath (Chronic). H/O benign neoplasm (Resolved) PREVIOUS FUNCTIONAL STATUS/SOCIAL/FAMILY SUPPORTS:: Edwige lives alone in a single family home in [facility]. It is on 2 levels with the bedrooms being upstairs. She has been for 27 years. Edwige worked for [employer] for many years but is now retired. 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 Edwige has 2 children and 3 grandchildren who live locally and are very supportive. CURRENT FUNCTIONAL STATUS:: Edwige was Sitting up in bed chatting with her very close friend Shalonda. She was smiling and engaged readily with CM and was agreeable to answering questions. Edwige states that she came to the hospital because she couldnt breathe. She explained that this is due to her afib but that it is a different presentation than last time. She reports that she is feeling better this morning but knows she will likely need to remain hospitalized for a while longer. ADVANCE DIRECTIVES:: None on file. provided Edwige with [facility] Advanced Directives forms at her request. Has patient been provided with information about the portal?: Yes Did the patient sign up for the portal?: No CODE STATUS:: DNR/DNI INSURANCE COVERAGE / FINANCIAL ISSUES:: Medicare. [employer] CURRENT HOME/COMMUNITY SERVICES/EQUIPMENT:: None currently PRIMARY CARE PHYSICIAN:: Cande Mo POTENTIAL DISCHARGE NEEDS:: Follow up visit with PCP and discharge plan of care PATIENT/FAMILY EDUCATION NEEDS:: Discharge Plan, limitations, follow up plan of care, Ask Me Three. TRANSPORTATION:: Via private automobile with friends or family when ready PLAN:: Edwige has had a change in status from ICU level of care to acute care. She is receiving po medication to control her heart rate and is undergoing further testing. Edwige will likely be discharged home with no additional services. CM will continue to provide support to patient, family, care team and discharge plan of care.
--- NOTE | 2018-12-22 08:32 | PGE_ITS ---
Date of Service Date of service: 12/22/18 Time of Service: 08:29 Assessment and Plan (1) Sepsis: Current visit: Yes Status: Acute Likely due to bronchitis. Sepsis resolved. Blood and sputum C&S pending. Continue empiric doxycycline, rocephin (day 2), antitussives, nebs. Start to taper steroids. (2) Rapid atrial fibrillation: Current visit: Yes Status: Resolved Likely due to above. Has Afib chronically, anticoagulated with eliquis. Transitioned to PO cardizem 60 mg Q6hrs. Continue home metoprolol XL 50 mg daily. Continue to monitor on tele. Ok to transfer out of ICU. (3) Acute bronchitis: Current visit: Yes Status: Acute As above (4) Acute CHF: Current visit: Yes Status: Acute Likely due to rapid ventricular rate. EF preserved. Echo cannot comment on diastolic dysfunction Does have pulmonary hypertension per echo - will need a sleep study. S/p 1 dose of lasix in ED. Monitor I/O's, daily weights. Appears euvolemic at this time. (5) Hemoptysis: Current visit: Yes Status: Resolved Mild, in setting of anticoagulation - resolved. Ok to continue anticoagulation (6) Prediabetes: Current visit: Yes Status: Acute Hold metformin. Continue to cover steroid-induced hyperglycemia with SSI. (7) Obstructive sleep apnea: Current visit: Yes Status: Suspected Suspected due to 1) erythrocytosis 2) Afib 3) pulmonary hypertension Needs an outpatient sleep study - patient aware (8) Erythrocytosis: Current visit: Yes Status: Chronic As above (9) Abnormal LFTs: Current visit: Yes Status: Acute Patient now states she has a h/o hepatitis (either B or C, she states she got it from dental work). She is not sure if this has been treated. Hepatitis studies are pending, as is RUQ US - however, I feel, based on improvement of LFT's over the last 24 hrs, that this was likely triggered by hypoperfusion of the liver in setting of rapid Afib as well as possible mild congestive hepatopathy. (10) Hypomagnesemia: Current visit: Yes Status: Acute repleted. Continue tomonitor (11) Moderate pulmonary arterial systolic hypertension: Current visit: Yes Status: Chronic As above (see suspected JESICA). Monitor O2 sats and volume status. (12) DVT prophylaxis: Current visit: Yes Status: Acute Continue home therapeutic eliquis (13) Discharge planning issues: Current visit: Yes Status: Acute DNR/DNI. Transfer out of ICU to [facility] with tele. Ambulate. Subjective Interval history since last seen: The patient states she feels a lot better today. She has had very little cough today - sputum sent this morning, still green. Reports not wheezing and not feeling short of breath. Denies dizziness, chest pain, nausea, vomiting. At 0330 had a night sweat that drenched the bed. Remains in Afib, 70-80's, transitioned off cardizem gtt to PO cardizem this am. O2 sats 90's on RA. Large amount of UOP. No hemoptysis. Exam Narrative Exam Narrative: General: Very pleasant Middle-aged female, A&Ox3, laying flat in bed HEENT: Atraumatic, normocephalic, EOMI, MMM Cardiovascular: irregularly irregular rhythm, no m/r/g Lungs: CTAB Gastrointestinal: abdomen is soft, nontender, nondistended Extremities: no e/c/c BLE's Objective Objective Clinical Data: Abnormal lab results 12/21/18 12/21/18 12/22/18 Range/Units 07:38 10:18 06:55 WBC (4.4-10.8) k/cumm RBC (4.00-5.20) m/cumm Hgb (12.0-15.5) g/dL Hct (36.0-46.0) % MPV (8.0-11.0) fL Absolute Neutrophils (1.2-6.7) k/cumm Absolute Lymphocytes (1.2-3.4) k/cumm Anion Gap 12.9 H 11.2 H (3-11) mmol/L BUN 27 H D (7-18) mg/dL Creatinine 1.48 H 1.10 H (0.55-1.02) mg/dL Glucose 204 H 225 H (70-100) mg/dL Magnesium 1.7 L (1.8-2.4) mg/dL Total Bilirubin 1.6 H 1.4 H (0.2-1.0) mg/dL Conjugated Bilirubin 0.31 H (0.00-0.20) mg/dL AST 47 H (15-37) U/L ALT 114 H 82 H (12-78) U/L NT-Pro-B Natriuret Pep 5560 H ( - 299) pg/mL Albumin 3.3 L 3.2 L (3.4-5.0) g/dL Urine Protein 100 H (Negative) mg/dL Urine Blood Trace-lysed H (Negative) Urine RBC 3-5 H (0-2) 12/22/18 Range/Units 06:55 WBC 12.23 H (4.4-10.8) k/cumm RBC 5.60 H (4.00-5.20) m/cumm Hgb 16.7 H (12.0-15.5) g/dL Hct 49.5 H (36.0-46.0) % MPV 11.3 H (8.0-11.0) fL Absolute Neutrophils 10.85 H (1.2-6.7) k/cumm Absolute Lymphocytes 1.06 L (1.2-3.4) k/cumm Anion Gap (3-11) mmol/L BUN (7-18) mg/dL Creatinine (0.55-1.02) mg/dL Glucose (70-100) mg/dL Magnesium (1.8-2.4) mg/dL Total Bilirubin (0.2-1.0) mg/dL Conjugated Bilirubin (0.00-0.20) mg/dL AST (15-37) U/L ALT (12-78) U/L NT-Pro-B Natriuret Pep ( - 299) pg/mL Albumin (3.4-5.0) g/dL Urine Protein (Negative) mg/dL Urine Blood (Negative) Urine RBC (0-2) Vital Signs Temperature 36.6 C 12/22/18 03:30 Temperature Source Temporal Artery Scan 12/22/18 03:30 Pulse 72 12/22/18 05:45 Pulse 75 12/22/18 06:00 Respiratory Rate 19 12/22/18 06:00 Respiratory Effort Non-Labored 12/22/18 03:30 Respiratory Depth Normal 12/22/18 03:30 Respiratory Pattern Normal 12/22/18 03:30 Blood Pressure 134/80 12/22/18 03:30 Blood Pressure Mean 98 12/22/18 03:30 Blood Pressure Position Supine 12/22/18 03:30 Pulse Oximetry 95 12/22/18 05:45 Oxygen Delivery Method Room Air 12/22/18 05:45 Oxygen Flow Rate 0 12/22/18 05:45 Pain Level 0 12/22/18 03:30 Intake & Output 12/21/18 12/21/18 12/22/18 11:59 23:59 11:59 Intake Total 200 / 1045.650 845.650 / 1045.650 480 / 480 Output Total 1125 / 3325 2200 / 3325 1000 / 1000 Balance -925 / -2279.350 -1354.350 / -2279.350 -520 / -520 Weight 87 kg 87 kg Intake: IV 50 / 315.650 265.650 / 315.650 Oral 150 / 730 580 / 730 480 / 480 Output: Urine 1125 / 3325 2200 / 3325 1000 / 1000 Other: Urine Color Yellow Yellow Yellow Urine Appearance Clear Clear Clear Urine Odor None Normal Normal Comment Voiding clear dark yellow urine at BSC. Voiding clear dark yellow urine at BSC. Voiding Methods Bedside Commode Bedside Commode Bedside Commode Laboratory Results WBC 12.23 k/cumm (4.4-10.8) H 12/22/18 06:55 RBC 5.60 m/cumm (4.00-5.20) H 12/22/18 06:55 Hgb 16.7 g/dL (12.0-15.5) H 12/22/18 06:55 Hct 49.5 % (36.0-46.0) H 12/22/18 06:55 MCV 88.4 fL (80-95) 12/22/18 06:55 MCH 29.8 pg (27.0-33.0) 12/22/18 06:55 MCHC 33.7 g/dL (32.0-36.0) 12/22/18 06:55 RDW 13.5 % (11.7-14.6) 12/22/18 06:55 Plt Count 225 x1000/uL (130-400) 12/22/18 06:55 MPV 11.3 fL (8.0-11.0) H 12/22/18 06:55 Immature Gran % 0.2 12/22/18 06:55 Neutrophils % 88.7 12/22/18 06:55 Lymphocytes % 8.7 12/22/18 06:55 Monocytes % 2.4 12/22/18 06:55 Eosinophils % 0.0 12/22/18 06:55 Basophils % 0.0 12/22/18 06:55 Absolute Neutrophils 10.85 k/cumm (1.2-6.7) H 12/22/18 06:55 Absolute Lymphocytes 1.06 k/cumm (1.2-3.4) L 12/22/18 06:55 Absolute Monocytes 0.29 k/cumm (0.11-0.7) 12/22/18 06:55 Absolute Eosinophils 0.00 k/cumm (0.0-0.7) 12/22/18 06:55 Absolute Basophils 0.00 k/cumm (0.0-0.2) 12/22/18 06:55 PT 10.7 sec (9.3-11.0) 12/21/18 07:38 INR 1.1 (0.9-1.1) 12/21/18 07:38 APTT 25.2 sec (21.0-31.4) 12/21/18 07:38 Sodium 137 mmol/L (136-145) 12/22/18 06:55 Potassium 3.9 mmol/L (3.5-5.1) 12/22/18 06:55 Chloride 100 mmol/L (98-107) 12/22/18 06:55 Carbon Dioxide 25.8 mmol/L (21.0-32.0) 12/22/18 06:55 Anion Gap 11.2 mmol/L (3-11) H 12/22/18 06:55 BUN 27 mg/dL (7-18) H D 12/22/18 06:55 Creatinine 1.10 mg/dL (0.55-1.02) H 12/22/18 06:55 Estimated GFR/1.73 m2 49.39 (mL/min/1.73m2) 12/22/18 06:55 Glucose 225 mg/dL (70-100) H 12/22/18 06:55 Calcium 9.1 mg/dL (8.5-10.1) 12/22/18 06:55 Magnesium 2.4 mg/dL (1.8-2.4) 12/22/18 06:55 Total Bilirubin 1.4 mg/dL (0.2-1.0) H 12/22/18 06:55 Conjugated Bilirubin 0.31 mg/dL (0.00-0.20) H 12/22/18 06:55 AST 24 U/L (15-37) 12/22/18 06:55 ALT 82 U/L (12-78) H 12/22/18 06:55 Alkaline Phosphatase 84 U/L (46-116) 12/22/18 06:55 Troponin I 0.02 ng/mL (0.00-0.06) 12/21/18 22:10 NT-Pro-B Natriuret Pep 5560 pg/mL (-299) H 12/21/18 07:38 Total Protein 7.2 g/dL (6.4-8.2) 12/22/18 06:55 Albumin 3.2 g/dL (3.4-5.0) L 12/22/18 06:55 TSH 1.26 uIU/mL (0.358-3.74) 12/21/18 07:38 Free T4 1.23 ng/dL (0.76-1.46) 12/21/18 07:38 Urine Color Yellow (Yellow) 12/21/18 10:18 Urine Clarity Clear 12/21/18 10:18 Urine pH 5.5 (5-8) 12/21/18 10:18 Ur Specific Celina 1.020 (1.005-1.025) 12/21/18 10:18 Urine Protein 100 mg/dL (Negative) H 12/21/18 10:18 Urine Ketones Negative mg/dL (Negative) 12/21/18 10:18 Urine Blood Trace-lysed (Negative) H 12/21/18 10:18 Urine Nitrite Negative (Negative) 12/21/18 10:18 Urine Bilirubin Negative (Negative) 12/21/18 10:18 Urine Urobilinogen 0.2 EU/dL (Up TO 0.2) 12/21/18 10:18 Ur Leukocyte Esterase Negative (Negative) 12/21/18 10:18 Urine RBC 3-5 (0-2) H 12/21/18 10:18 Urine WBC 3-5 HPF (0-5) 12/21/18 10:18 Ur Epithelial Cells Negative HPF (Negative) 06/06/19 10:18 Urine Crystals Negative HPF (Negative) 12/21/18 10:18 Urine Bacteria Rare HPF (Negative) 12/21/18 10:18 Urine Casts Negative LPF (Negative) 12/21/18 10:18 Urine Mucus Negative (Negative) 12/21/18 10:18 Urine Other Few renal (Negative) 12/21/18 10:18 Ur Culture Indicated? C&s done as ordered 12/21/18 10:18 Urine Glucose Negative mg/dL (Negative) 12/21/18 10:18 Echo: 1. Left ventricle: The cavity size was normal. Wall thickness was increased in a pattern of moderate LVH. Systolic function was hyperdynamic. The estimated ejection fraction was 65-70%. The study was not technically sufficient to allow evaluation of LV diastolic dysfunction due to atrial fibrillation. Doppler parameters are consistent with high ventricular filling pressure. 2. Ventricular septum: The outflow septum had a sigmoid appearance. 3. Mitral valve: There was mild regurgitation. 4. Left atrium: The atrium was mildly dilated. 5. Right ventricle: The cavity size was normal. Wall thickness was normal. Systolic function was normal. 6. Atrial septum: No defect or patent foramen ovale was identified. 7. Pulmonary arteries: Pulmonary systolic pressure was in the range of 40mm Hg to 50mm Hg. 8. Inferior vena cava: The vessel was patent and normal in size. The respirophasic diameter changes were in the normal range (greater than or equal to 50%), consistent with normal central venous pressure.
[2018-12-22] MEDS: dilTIAZem 60 MG TAB PO ×4 (09:08→23:04)
[2018-12-22] MEDS: Benzonatate 200 MG CAP PO ×3 (09:08→19:42)
[2018-12-22] MEDS: Metoprolol CR 50 MG TABCR PO (09:08)
[2018-12-22] MEDS: Aspirin 325 MG TAB PO (09:08)
[2018-12-22] MEDS: Apixaban 5 MG TAB PO ×2 (09:08→19:42)
[2018-12-22] MEDS: guaiFENesin 600 MG TABCR PO ×2 (09:09→19:42)
[2018-12-22] MEDS: Cholecalciferol (Vitamin D3) 1,000 UNIT TAB 1000 UNITS PO (09:09)
[2018-12-22] MEDS: Lisinopril 10 MG TAB PO (09:09)
[2018-12-22] MEDS: Calcium Carbonate *TUMS* 500 MG CHEW 1000 MG PO (09:09)
[2018-12-22] MEDS: Pantoprazole 40 MG TABCR PO (09:09)
[2018-12-22] MEDS: Insulin Aspart 300 UNITS/3 ML PEN SC ×4 (09:18→23:04)
--- NOTE | 2018-12-22 09:38 | PHARADMIT ---
Addendum entered by Fanta Valente 12/23/18 09:29: Pharmacy Note Subjective pt with sepsis due to possible bronchitis Objective BC:no growth 24 hrs, UC: gram pos cesar, sputum culture: normal cesar Assessment ceftriaxone/doxy started 12/21, sliding scale insulin for hyperglycemia due to steroids, metformin on hold Plan may discharge , will need transition to PO antibiotics Original Note: Admission Pharmacy Clinical Review RAPID A-FIB, BRONCHITIS Code Status DNR/DNI Current Weight Wgt-87 kg Renally Cleared and Narrow Therapeutic Index Meds CrCl~ 40.4 mL/min Meds-ok QTc Value / Action Taken QTc-464 (Protonix, Lasix, ) BP Control, Fever BP- 134/80 Tmsax- 36.9C Electrolytes reviewed Na-137 K+3.9 Mag-2.4 DVT Prophylaxis Apixaban Opiate Usage / Scheduled Bowel Regimen Ordered No Yes Plt/SCr for Heparin / Enoxaparin Plts-225 SCr-1.1 INR for Warfarin inr-1.1 H/H stable, WBC/Bands H&H- 16.7/49.5 WBC- 12.23 Antibiotic appropriateness Rocephin, Doxycycline Cultures and Sensitivities Blood, Urine -pending Surgical ABX d/c within 24 hr NA DM control / Insulin Dosing BG- 225 Asaprt Heart Failure (Check EF%) (MACARIO's, B-Block, Diuretics) Diltiazem,Liisinopril, Toprol-XL, NTG IV to PO Switch No Home Meds Reviewed Yes Home Meds Not Ordered HCTZ, Metformin, Comments
--- NOTE | 2018-12-22 13:00 | DI.US_ITS ---
SYMPTOMS/DIAGNOSIS: TRANSAMINITIS ABDOMINAL ULTRASOUND: Routine examination was performed. The aorta can not be visualized due to overlying bowel. The inferior vena cava is unremarkable. The liver is enlarged measuring almost 20 cm in length. There is diffuse increased echogenicity of the liver consistent with fatty infiltration. No discrete hepatic mass is seen. The gallbladder is contracted. No definite stones are seen. No biliary ductal dilatation is present. The common duct is within normal limits at .6 cm. The pancreas and spleen are unremarkable as is the left kidney. There is a 7.1 x 6 x 7.5 cm simple cyst in the right kidney. There is a 6 mm echogenic focus in the right kidney consistent with a nonobstructing stone. IMPRESSION: 1. Hepatomegaly. Fatty infiltration of the liver. 2. Contracted gallbladder. No definite stones. No biliary ductal dilatation. 3. Right nephrolithiasis. Right simple renal cyst.
[2018-12-22] MEDS: cefTRIAXone 1 GM/50 ML BAG IVPB (14:12)
[2018-12-22] MEDS: Normal Saline Flush 10 ML SYR (14:26)
[2018-12-22] MEDS: predniSONE 20 MG TAB 60 MG PO (19:42)
[2018-12-23] VITALS (13 sets, daily range): BP systolic 126–161; BP diastolic 65–82; PULSE 65–118; RESP 8–22; TEMP 26.5–36.5; O2SAT 94–98
[2018-12-23] MEDS: DOXYCYCLINE 100 MG in Normal Saline 100 ML IVPB ×2 (03:47→15:53)
[2018-12-23] MEDS: Albuterol/Ipratropium 3 ML UPD VIAL UPD ×3 (06:14→17:45)
[2018-12-23] MEDS: dilTIAZem 60 MG TAB PO (06:15)
[2018-12-23 06:58] LABS: Abs Immature Grans 0.07 k/cumm (0.0-0.09); Absolute Basophil Count 0.02 k/cumm (0.0-0.2); Basophils % 0.1; Eosinophils % 0.1; HCT 48.3 % (36.0-46.0); HGB 16.6 g/dL (12.0-15.5); Immature Grans % 0.4; Lymphocytes % 5.3; Mean Corp. HGB Concentration 34.4 g/dL (32.0-36.0); Mean Corpuscular Hemoglobin 30.3 pg (27.0-33.0); Mean Corpuscular Volume 88.3 fL (80-95); Mean Platelet Volume 11.5 fL (8.0-11.0); Monocytes % 4.8; Neutrophils % 89.3; Platelet Count 267 x1000/uL (130-400); RBC 5.47 m/cumm (4.00-5.20); RBC Distribution Width 13.6 % (11.7-14.6); White Blood Cell Count 18.88 k/cumm (4.4-10.8)
[2018-12-23 07:10] LABS: Absolute Eosinophil Count 0.02 k/cumm (0.0-0.7); Absolute Monocyte Count 0.91 k/cumm (0.11-0.7); Absolute Neutrophil Count 16.86 k/cumm (1.2-6.7)
[2018-12-23 07:13] LABS: Anion Gap 10.6 mmol/L (3-11); BUN 43 mg/dL (7-18); CO2 24.4 mmol/L (21.0-32.0); CREATININE 1.39 mg/dL (0.55-1.02); Calcium 9.4 mg/dL (8.5-10.1); Chloride 101 mmol/L (98-107); Estimated GFR 37.71 (mL/min/1.73m2); Glucose 252 mg/dL (70-100); Magnesium 2.3 mg/dL (1.8-2.4); Potassium 3.9 mmol/L (3.5-5.1); Sodium 136 mmol/L (136-145)
[2018-12-23 07:16] LABS: ALT 61 U/L (12-78); AST 16 U/L (15-37); Albumin 3.1 g/dL (3.4-5.0); Alkaline Phosphatase 83 U/L (46-116); Bilirubin, Direct 0.13 mg/dL (0.00-0.20); Bilirubin, Total 0.7 mg/dL (0.2-1.0); Total Protein 6.8 g/dL (6.4-8.2)
[2018-12-23] MEDS: predniSONE 20 MG TAB 60 MG PO (07:39)
[2018-12-23] MEDS: Apixaban 5 MG TAB PO ×2 (07:39→19:34)
[2018-12-23] MEDS: Aspirin 325 MG TAB PO (07:40)
[2018-12-23] MEDS: Benzonatate 200 MG CAP PO ×3 (07:40→19:34)
[2018-12-23] MEDS: Cholecalciferol (Vitamin D3) 1,000 UNIT TAB 1000 UNITS PO (07:40)
[2018-12-23] MEDS: Calcium Carbonate *TUMS* 500 MG CHEW 1000 MG PO (07:40)
[2018-12-23] MEDS: Pantoprazole 40 MG TABCR PO (07:40)
[2018-12-23] MEDS: Lisinopril 10 MG TAB PO (07:46)
[2018-12-23] MEDS: Metoprolol CR 50 MG TABCR PO ×2 (07:46→19:34)
[2018-12-23] MEDS: Insulin Aspart 300 UNITS/3 ML PEN SC ×4 (07:46→21:43)
[2018-12-23] MEDS: guaiFENesin 600 MG TABCR PO ×2 (07:46→19:34)
--- NOTE | 2018-12-23 08:17 | PDOC.CMPRO ---
Care Management Progress Note S/0: Edwige was sitting up in bed visiting with one of her neighbors. Says she is starting to feel a little better but not quite ready to go home. Anticipates she will have to use oxygen at home and if that does happen she does not feel it will be an issue. States she can handle it. Still receiving IV Fluids and medications. A: 68 yo female admitted for Rapid A-Fib P: Edwige will return to her apartment and will not need any servicesin the home. If she does need home O2, RT will make the arrangements and provide teaching prior to discharge. We will see how she progresses over the next 24 hours. Family will transport when medically cleared for discharge. cc:
--- NOTE | 2018-12-23 11:31 | W.PM.PROGNOT ---
Date of Service Date of service: 12/23/18 Time of Service: 11:32 Assessment and Plan (1) Sepsis: Current visit: Yes Status: Acute Likely due to bronchitis/pneumonia, now resolved. WBC normalized. Blood and sputum C&S pending showing only cesar. Continue empiric doxycycline, rocephin (day 3), antitussives, nebs. Change prednisone to daily and plan taper (2) Rapid atrial fibrillation: Current visit: Yes Status: Resolved Likely due to above. Has Afib chronically, anticoagulated with eliquis. Transitioned to long acting cardizem 240mg (equivalent) and increased metoprolol XL 50 mg BID (added second dose) as pulse and BP still high despite improvement in respiratory status. Continue to monitor on tele. now med status (3) Acute bronchitis: Current visit: Yes Status: Acute As above (4) Acute CHF: Current visit: Yes Status: Acute Likely due to rapid ventricular rate. EF preserved. Echo cannot comment on diastolic dysfunction Does have pulmonary hypertension per echo - will need a sleep study. S/p 1 dose of lasix in ED. Monitor I/O's, daily weights. Again appears euvolemic at this time. (5) Hemoptysis: Current visit: Yes Status: Resolved Mild, in setting of anticoagulation - resolved. Ok to continue anticoagulation, discuss chest CT given her risk factors (6) Prediabetes: Current visit: Yes Status: Acute Hold metformin. Continue to cover steroid-induced hyperglycemia with SSI. (7) Obstructive sleep apnea: Current visit: Yes Status: Suspected Suspected due to 1) erythrocytosis 2) Afib 3) pulmonary hypertension 4) snoring and poor quality non-restorative Needs an outpatient sleep study - patient aware (8) Erythrocytosis: Current visit: Yes Status: Chronic As above. Given polycythemia vera diagnosis as outpatient, but I agree with above. (9) Abnormal LFTs: Current visit: Yes Status: Acute Patient now states she has a h/o hepatitis (either B or C, she states she got it from dental work), though upon review of record from clinic there is no note of this and her LFTs have been normal. LFTs have normalized today (though ALT still above ideal). I agree with hepatitis panel given her report, but I also agree that the acute elevation was likely triggered by hypoperfusion of the liver in setting of rapid Afib as well as possible mild congestive hepatopathy. (10) Hypomagnesemia: Current visit: Yes Status: Acute repleted. Continue tomonitor (11) Moderate pulmonary arterial systolic hypertension: Current visit: Yes Status: Chronic As above (see suspected JESICA). Monitor O2 sats and volume status. (12) Acute renal insufficiency: Current visit: Yes Status: Acute Cr improved yesterday but higher today, though historic range 1.1-1.4 baseline so still in that range. BUN is increasing. Not getting ongoing diuresis. Not getting particularly renal toxic meds. Follow along with urine output and further assess if progresses (13) DVT prophylaxis: Current visit: Yes Status: Acute Continue home therapeutic eliquis (14) Discharge planning issues: Current visit: Yes Status: Acute DNR/DNI. Continue medsurg with tele. Ambulate. Subjective Patient reports: no new complaints, feels better, tolerating a regular diet and nausea; denies diarrhea, vomiting and fever Interval history since last seen: events: HR in 130s-140s with activity, max 168 S: Edwige feels a little better. Still some fatigue and SOB when up around room. No chest pain. Feels heart fast when active. She is a little lightheaded as well when up and about. She didn't sleep well but this is typical for her. Some cough still, but less. Exam Narrative Exam Narrative: General: Pleasent, A&Ox3, sitting up in bed HEENT: Atraumatic, MMM, no elevated JVP Cardiovascular: irregularly irregular rhythm, no m/r/g Lungs: CTAB, normal effort at rest Gastrointestinal: abdomen is soft, nontender, nondistended Extremities: no e/c/c BLE's Objective Objective Clinical Data: Abnormal lab results 12/23/18 12/23/18 12/23/18 Range/Units 06:05 06:05 06:05 WBC 18.88 H D (4.4-10.8) k/cumm RBC 5.47 H (4.00-5.20) m/cumm Hgb 16.6 H (12.0-15.5) g/dL Hct 48.3 H (36.0-46.0) % MPV 11.5 H (8.0-11.0) fL Absolute Neutrophils 16.86 H (1.2-6.7) k/cumm Absolute Lymphocytes 1.00 L (1.2-3.4) k/cumm Absolute Monocytes 0.91 H (0.11-0.7) k/cumm BUN 43 H D (7-18) mg/dL Creatinine 1.39 H (0.55-1.02) mg/dL Glucose 252 H (70-100) mg/dL Albumin 3.1 L (3.4-5.0) g/dL Vital Signs Temperature 36.5 C 12/23/18 08:27 Temperature Source Temporal Artery Scan 12/23/18 08:27 Pulse 118 H 12/23/18 08:27 Pulse Rhythm Irregular 12/23/18 08:27 Pulse 94 H 12/23/18 08:00 Respiratory Rate 22 12/23/18 08:27 Respiratory Effort 12/23/18 08:27 Respiratory Depth Normal 12/23/18 08:27 Respiratory Pattern Normal 12/23/18 08:27 Blood Pressure 146/69 H 12/23/18 08:27 Blood Pressure Mean 86 12/23/18 07:25 Blood Pressure Position Supine 12/22/18 10:10 Pulse Oximetry 98 12/23/18 08:27 Oxygen Delivery Method Room Air 12/23/18 08:27 Oxygen Flow Rate 0 12/23/18 08:27 Pain Level 0 12/23/18 08:27 Intake & Output 12/22/18 12/22/18 12/23/18 11:59 23:59 11:59 Intake Total 597.333 / 1277.333 680 / 1277.333 320 / 320 Output Total 1000 / 1725 725 / 1725 1525 / 1525 Balance -402.667 / -447.667 -45 / -447.667 -1205 / -1205 Weight 87 kg 88.7 kg Intake: IV 117.333 / 317.333 200 / 317.333 Oral 480 / 960 480 / 960 320 / 320 Output: Urine 1000 / 1725 725 / 1725 1525 / 1525 Other: Urine Color Yellow Yellow Yellow Urine Appearance Clear Clear Clear Urine Odor Normal Normal Normal Comment No void at this time. Voiding Methods Bedside Commode Bedside Commode Bedside Commode Laboratory Results WBC 18.88 k/cumm (4.4-10.8) H D 12/23/18 06:05 RBC 5.47 m/cumm (4.00-5.20) H 12/23/18 06:05 Hgb 16.6 g/dL (12.0-15.5) H 12/23/18 06:05 Hct 48.3 % (36.0-46.0) H 12/23/18 06:05 MCV 88.3 fL (80-95) 12/23/18 06:05 MCH 30.3 pg (27.0-33.0) 12/23/18 06:05 MCHC 34.4 g/dL (32.0-36.0) 12/23/18 06:05 RDW 13.6 % (11.7-14.6) 12/23/18 06:05 Plt Count 267 x1000/uL (130-400) 12/23/18 06:05 MPV 11.5 fL (8.0-11.0) H 12/23/18 06:05 Immature Gran % 0.4 12/23/18 06:05 Neutrophils % 89.3 12/23/18 06:05 Lymphocytes % 5.3 12/23/18 06:05 Monocytes % 4.8 12/23/18 06:05 Eosinophils % 0.1 12/23/18 06:05 Basophils % 0.1 12/23/18 06:05 Absolute Neutrophils 16.86 k/cumm (1.2-6.7) H 12/23/18 06:05 Absolute Lymphocytes 1.00 k/cumm (1.2-3.4) L 12/23/18 06:05 Absolute Monocytes 0.91 k/cumm (0.11-0.7) H 12/23/18 06:05 Absolute Eosinophils 0.02 k/cumm (0.0-0.7) 12/23/18 06:05 Absolute Basophils 0.02 k/cumm (0.0-0.2) 12/23/18 06:05 PT 10.7 sec (9.3-11.0) 12/21/18 07:38 INR 1.1 (0.9-1.1) 12/21/18 07:38 APTT 25.2 sec (21.0-31.4) 12/21/18 07:38 Sodium 136 mmol/L (136-145) 12/23/18 06:05 Potassium 3.9 mmol/L (3.5-5.1) 12/23/18 06:05 Chloride 101 mmol/L (98-107) 12/23/18 06:05 Carbon Dioxide 24.4 mmol/L (21.0-32.0) 12/23/18 06:05 Anion Gap 10.6 mmol/L (3-11) 12/23/18 06:05 BUN 43 mg/dL (7-18) H D 12/23/18 06:05 Creatinine 1.39 mg/dL (0.55-1.02) H 12/23/18 06:05 Estimated GFR/1.73 m2 37.71 (mL/min/1.73m2) 12/23/18 06:05 Glucose 252 mg/dL (70-100) H 12/23/18 06:05 Calcium 9.4 mg/dL (8.5-10.1) 12/23/18 06:05 Magnesium 2.3 mg/dL (1.8-2.4) 12/23/18 06:05 Total Bilirubin 0.7 mg/dL (0.2-1.0) 12/23/18 06:05 Conjugated Bilirubin 0.13 mg/dL (0.00-0.20) 12/23/18 06:05 AST 16 U/L (15-37) 12/23/18 06:05 ALT 61 U/L (12-78) 12/23/18 06:05 Alkaline Phosphatase 83 U/L (46-116) 12/23/18 06:05 Troponin I 0.02 ng/mL (0.00-0.06) 12/21/18 22:10 NT-Pro-B Natriuret Pep 5560 pg/mL (-299) H 12/21/18 07:38 Total Protein 6.8 g/dL (6.4-8.2) 12/23/18 06:05 Albumin 3.1 g/dL (3.4-5.0) L 12/23/18 06:05 TSH 1.26 uIU/mL (0.358-3.74) 12/21/18 07:38 Free T4 1.23 ng/dL (0.76-1.46) 12/21/18 07:38 Urine Color Yellow (Yellow) 12/21/18 10:18 Urine Clarity Clear 12/21/18 10:18 Urine pH 5.5 (5-8) 12/21/18 10:18 Ur Specific [place] 1.020 (1.005-1.025) 12/21/18 10:18 Urine Protein 100 mg/dL (Negative) H 12/21/18 10:18 Urine Ketones Negative mg/dL (Negative) 12/21/18 10:18 Urine Blood Trace-lysed (Negative) H 12/21/18 10:18 Urine Nitrite Negative (Negative) 12/21/18 10:18 Urine Bilirubin Negative (Negative) 12/21/18 10:18 Urine Urobilinogen 0.2 EU/dL (Up TO 0.2) 12/21/18 10:18 Ur Leukocyte Esterase Negative (Negative) 12/21/18 10:18 Urine RBC 3-5 (0-2) H 12/21/18 10:18 Urine WBC 3-5 HPF (0-5) 12/21/18 10:18 Ur Epithelial Cells Negative HPF (Negative) 12/21/18 10:18 Urine Crystals Negative HPF (Negative) 12/21/18 10:18 Urine Bacteria Rare HPF (Negative) 12/21/18 10:18 Urine Casts Negative LPF (Negative) 12/21/18 10:18 Urine Mucus Negative (Negative) 12/21/18 10:18 Urine Other Few renal (Negative) 12/21/18 10:18 Ur Culture Indicated? C&s done as ordered 12/21/18 10:18 Urine Glucose Negative mg/dL (Negative) 12/21/18 10:18
--- NOTE | 2018-12-23 11:47 | CMPROGNOTE_ITS ---
Care Management Progress Note S/0: Edwige was sitting up in bed visiting with one of her neighbors. Says she is starting to feel a little better but not quite ready to go home. Anticipates she will have to use oxygen at home and if that does happen she does not feel it will be an issue. States she can handle it. Still receiving IV Fluids and medications. A: 68 yo female admitted for Rapid A-Fib P: Edwige will return to her apartment and will not need any servicesin the home. If she does need home O2, RT will make the arrangements and provide teac aylin prior to discharge. We will see how she progresses over the next 24 hours. Family will transport when medically cleared for discharge. cc:
[2018-12-23] MEDS: cefTRIAXone 1 GM/50 ML BAG IVPB (13:46)
[2018-12-23] MEDS: Normal Saline Flush 10 ML SYR (13:46)
--- NOTE | 2018-12-23 18:32 | NUR.NOTE ---
Nursing Note: 12/23/18@1413-Very alert & oriented x3. Ambulated from ICU 219 to room 225. Oriented to room and call aguilar system. See shift assessment & VS. Wishes to sit up in chair.
[2018-12-24] MEDS: DOXYCYCLINE 100 MG in Normal Saline 100 ML IVPB (03:28)
[2018-12-24 03:37] VITALS: BP 133/83; PULSE 105; RESP 19; TEMP 36.8; O2SAT 94
[2018-12-24] MEDS: Albuterol/Ipratropium 3 ML UPD VIAL UPD ×2 (06:31→11:54)
[2018-12-24 07:25] VITALS: BP 143/86; PULSE 62; RESP 18; TEMP 35.9; O2SAT 93
[2018-12-24] MEDS: Aspirin 325 MG TAB PO (08:15)
[2018-12-24] MEDS: Pantoprazole 40 MG TABCR PO (08:15)
[2018-12-24] MEDS: Apixaban 5 MG TAB PO (08:15)
[2018-12-24] MEDS: Cholecalciferol (Vitamin D3) 1,000 UNIT TAB 1000 UNITS PO (08:16)
[2018-12-24] MEDS: Lisinopril 10 MG TAB PO (08:16)
[2018-12-24] MEDS: Metoprolol CR 50 MG TABCR PO (08:16)
[2018-12-24] MEDS: predniSONE 20 MG TAB 60 MG PO (08:16)
[2018-12-24] MEDS: guaiFENesin 600 MG TABCR PO (08:16)
[2018-12-24] MEDS: Insulin Aspart 300 UNITS/3 ML PEN SC ×2 (08:17→11:48)
[2018-12-24] MEDS: Benzonatate 200 MG CAP PO (08:17)
[2018-12-24] MEDS: Calcium Carbonate *TUMS* 500 MG CHEW 1000 MG PO (08:17)
[2018-12-24] MEDS: dilTIAZem CD 120 MG CAPCR 240 MG PO (08:17)
[2018-12-24 08:33] VITALS: PULSE 95
[2018-12-24] MEDS: Docusate Sodium 100 MG CAP PO (08:33)
[2018-12-24] MEDS: Polyethylene Glycol 3350 17 GM PACKET PO (08:33)
--- NOTE | 2018-12-24 10:30 | W.PM.DS.N ---
Date of service: 12/24/18 Time of Service: 10:30 DS: Diagnosis Discharge Diagnosis (1) Sepsis: Status: Acute (2) Rapid atrial fibrillation: Status: Resolved (3) Acute bronchitis: Status: Acute (4) Acute CHF: Status: Acute (5) Hemoptysis: Status: Resolved (6) Prediabetes: Status: Acute (7) Obstructive sleep apnea: Status: Suspected (8) Erythrocytosis: Status: Chronic (9) Abnormal LFTs: Status: Acute (10) Hypomagnesemia: Status: Acute (11) Moderate pulmonary arterial systolic hypertension: Status: Chronic (12) Acute renal insufficiency: Status: Acute (13) DVT prophylaxis: Status: Acute (14) Discharge planning issues: Status: Acute Discharge Plan Disposition Patient Disposition: HOME Condition: Improving Discharge Details Reason For Visit: RAPID AFIB *See DOWNTIME SCANNING* Admit Date/Time: 12/21/18 09:09 Admit Provider: Sophia Estrada Attending Provider: Sophia Estrada Primary Care Provider: Cande Mo [place] Hospital Course Hospital Course: I thought I had a cold or a pneumonia Narrative: Ms Davis is a 68 year old female with PMHx of CAD s/p 2 stents, chronic Afib on anticoagulation with eliquis, prediabetes, Hypertension, CKD, who presented to [facility] ED complaining of shortness of breath, productive cough with green blood-tinged sputum, and wheezing for several days, so bad today that she had to come to the hospital. She did not have any chest pain, dizziness, or palpitations. She was surprised to find out that she was in Rapid Afib with HR of 160's. She was treated with cardizem bolus and drip. We were asked to admit the patient for further care. The patient states that she also has had rhinorrhea, sore throat, some ankle swelling. She denies abdominal pain, urinary symptoms, diarrhea, constipation, or blood in stool. She had a short course in ICU on a drip when she became rate controlled and transferred out yesterday. She has been controlled afib from 70's-100's. Today she looks well and sounds well. She would like to go home. She denies hemoptysis since admission. Her lungs are clear. Plan will be continue her course of antibiotics and a tapering steroid dose. Follow up with PCP in 1 week. Recommend an outpatient chest CT, and sleep study. She will need a repeat CBC with CMP in 2 days. She denies SOB, CP, n/v/d .(1) Sepsis: Likely due to bronchitis. Obtain blood cultures negative, sputum C&S normal cesar. Treat with empiric doxycycline, rocephin. Provide antitussives, steroids, nebs. (2) Rapid atrial fibrillation: Likely due to above Controlled at this time Resumed home metoprolol. Continue anticoagulation. (3) Acute bronchitis: As above (4) Acute CHF: Likely due to rapid ventricular rate. S/p 1 dose of lasix in ED. Monitor I/O's, daily weights. May require more diuresis. Check echo. Check TSH. R/o ACS. (5) Hemoptysis: Mild, in setting of anticoagulation, none since admission (6) Prediabetes: Hold metformin. We expect steroid-induced hyperglycemia. Provide SSI. (7) Obstructive sleep apnea: Needs an outpatient sleep studies. (8) Erythrocytosis: Suspect patient has pulmonary hypertension due to JESICA. Will need a sleep study; echo is being obtained. (9) Abnormal LFTs: Etiology unclear. Patient reports no symptoms. Will trend. Consider imaging if sx occur. Will check hepatitis panel still pending, follow with PCP regarding results. (10) Hypomagnesemia: resolved, she was replete and monitor (11) Discharge planning issues: Advanced directives discussed. The patient would like to be DNR/DNI. She does not have a COLST form with her; she is not sure if there is a document. (12) DVT prophylaxis: Continue home therapeutic eliquis Home Meds and New Rx's Prescriptions: New benzonatate 200 mg Capsule 200 mg PO TID Qty: 20 RF: 0 diltiazem HCl 120 mg Capsule,Extended Release 24hr 240 mg PO DAILY Qty: 30 RF: 0 doxycycline hyclate 100 mg capsule 100 mg PO BID Qty: 10 RF: 0 cefpodoxime 200 mg tablet 200 mg PO BID Qty: 16 RF: 0 prednisone 10 mg tablet 10 mg PO DAILY Qty: 65 RF: 0 Continued Eliquis 5 MG tablet 5 mg PO BID Qty: 60 RF: 11 aspirin 325 MG tablet 325 mg PO DAILY AM RF: 0 nitroglycerin 0.4 MG tablet, sublingual 0.4 mg Sublingual PER PROTOCOL RF: 0 cholecalciferol (vitamin D3) 1,000 UNITS tablet 1,000 units PO DAILY RF: 0 metformin 500 mg Tablet 500 mg PO DAILY RF: 0 hydrochlorothiazide 25 mg Tablet 25 mg PO DAILY PRN PRNRF: 0 calcium carbonate 430 mg calcium (1,000 mg) Tablet,Chewable 1,000 mg PO DAILY RF: 0 metoprolol succinate [Toprol XL] 50 mg Tablet Extended Release 24 Hr 50 mg PO DAILY RF: 0 lisinopril 10 mg Tablet 10 mg PO DAILY RF: 0 Discharge Instructions Instructions: Heart Failure (GEN), Atrial Fibrillation (GEN), Antibiotic Resistant Bacteria (GEN), Acute Bronchitis (GEN), Liver Profile (GEN) Additional Instructions: Follow up with your Primary in 1 week. Finish all antibioitcs. Eat a yogurt daily for 1 month. Follow steroid taper dosing schedule and finish all medications You have been started on CARDIZEM (Diltiazem) to control you AFIB. TAKE DIRECTED. DO NOT STOP TAKING THIS MEDICATION UNLESS YOUR PROVIDER TELLS YOU TOO. Recommend outpatient sleep study to see if you have Obstructive sleep apnea. Get your labs checked in 2 days. Seek Medical attention immediately if you become, SOB, have Chest pain, n/v/d, calf swelling or fevers. Your blood sugars will be higher than normal while on steroids, continue to monitor them and follow up with your PCP if you have concerns. Activity:: Activity as Tolerated Equipment/Supplies:: No Equipment Needed Diet:: As Tolerated Discharge Orders Discharge Orders: Discharge Order (Routine); Ordered 12/24/18 Ordered By: Katey Fajardo Other Ambulatory Orders: Complete Blood Count w/Diff (Routine) Location: Determined by Patient Ordered By: Katey Fajardo Comprehensive Metabolic Panel (Routine) Location: Determined by Patient Ordered By: Katey Fajardo Magnesium (Routine) Location: Determined by Patient Ordered By: Katey Fajardo Exam Narrative Exam Narrative: General: Pleasant, A&Ox3, sitting up in chair HEENT: Atraumatic, MMM, no elevated JVP Cardiovascular: irregularly irregular rhythm, no m/r/g Lungs: CTAB, normal effort at rest Gastrointestinal: abdomen is soft, nontender, nondistended Extremities: no e/c/c BLE's DS: Data Vitals/I&O Vitals and I&O: Vital Signs Temperature 35.9 C L 12/24/18 07:25 Temperature Source Tympanic 12/24/18 07:25 Pulse 95 H 12/24/18 08:33 Pulse Rhythm Irregular 12/24/18 08:24 Pulse 94 H 12/23/18 08:00 Respiratory Rate 18 12/24/18 07:25 Respiratory Effort 12/24/18 08:24 Respiratory Depth Normal 12/24/18 08:24 Respiratory Pattern Normal 12/24/18 08:24 Blood Pressure 143/86 H 12/24/18 07:25 Blood Pressure Mean 86 12/23/18 07:25 Blood Pressure Position Supine 12/22/18 10:10 Pulse Oximetry 93 L 12/24/18 07:25 Oxygen Delivery Method Room Air 12/24/18 07:25 Oxygen Flow Rate 0 12/24/18 07:25 Pain Level 0 12/24/18 07:25 Intake & Output 12/23/18 12/23/18 12/24/18 11:59 23:59 11:59 Intake Total 870 / 1860 990 / 1860 100 / 100 Output Total 1525 / 3200 1675 / 3200 1450 / 1450 Balance -655 / -1340 -685 / -1340 -1350 / -1350 Weight 88.7 kg Intake: IV 100 / 250 150 / 250 100 / 100 Oral 770 / 1610 840 / 1610 Output: Urine 1525 / 3200 1675 / 3200 1450 / 1450 Other: Urine Color Yellow Yellow Yellow Urine Appearance Clear Clear Clear Urine Odor Normal Normal Comment late entry Voiding Methods Bedside Commode Toilet Toilet Completed studies during hospitalization [Text1]: a RAD:XR portable chest AP SYMPTOM/DIAGNOSIS: COUGH CHEST: Portable AP view. Comparison 10/01/14. Heart size and pulmonary vasculature appear stable. Sternal wires are in place. The lungs show no focal consolidating infiltrates, No effusions or pneumothoraces are identified. There is plate atelectasis seen in the left mid lung. IMPRESSION: No definite acute pulmonary process. STUDY CONCLUSIONS* Summary: 1. Left ventricle: The cavity size was normal. Wall thickness was increased in a pattern of moderate LVH. Systolic function was hyperdynamic. The estimated ejection fraction was 65-70%. The study was not technically sufficient to allow evaluation of LV diastolic dysfunction due to atrial fibrillation. Doppler parameters are consistent with high ventricular filling pressure. 2. Ventricular septum: The outflow septum had a sigmoid appearance. 3. Mitral valve: There was mild regurgitation. 4. Left atrium: The atrium was mildly dilated. 5. Right ventricle: The cavity size was normal. Wall thickness was normal. Systolic function was normal. 6. Atrial septum: No defect or patent foramen ovale was identified. 7. Pulmonary arteries: Pulmonary systolic pressure was in the range of 40mm Hg to 50mm Hg. 8. Inferior vena cava: The vessel was patent and normal in size. The respirophasic diameter changes were in the normal range (greater than or equal to 50%), consistent with normal central venous pressure. Exam(s) a US:US abdomen SYMPTOMS/DIAGNOSIS: TRANSAMINITIS ABDOMINAL ULTRASOUND: Routine examination was performed. The aorta can not be visualized due to overlying bowel. The inferior vena cava is unremarkable. The liver is enlarged measuring almost 20 cm in length. There is diffuse increased echogenicity of the liver consistent with fatty infiltration. No discrete hepatic mass is seen. The gallbladder is contracted. No definite stones are seen. No biliary ductal dilatation is present. The common duct is within normal limits at .6 cm. The pancreas and spleen are unremarkable as is the left kidney. There is a 7.1 x 6 x 7.5 cm simple cyst in the right kidney. There is a 6 mm echogenic focus in the right kidney consistent with a nonobstructing stone. IMPRESSION: 1. Hepatomegaly. Fatty infiltration of the liver. 2. Contracted gallbladder. No definite stones. No biliary ductal dilatation. 3. Right nephrolithiasis. Right simple renal cyst. Labs on day of discharge: Preliminary micro results at discharge 12/22/18 14:30 Sputum Culture - Preliminary Sputum Normal Cesar 12/21/18 14:38 Blood Culture - Preliminary Blood NO GROWTH 48 HOURS 12/21/18 14:25 Blood Culture - Preliminary Blood NO GROWTH 48 HOURS [facility] Medical History Atrial fibrillation (Chronic 04/29/14) Hypertension (Chronic) CAD (coronary artery disease) (Chronic) Obesity (Chronic) BMI 33.0-33.9,adult (Chronic) Tobacco abuse (Resolved) Osteoarthritis (Chronic) H/O hypercalcemia (Chronic) H/O hyperparathyroidism (Chronic) Elevated hematocrit (Chronic) Elevated hemoglobin (Chronic) Impaired fasting glucose (Chronic) Metabolic syndrome (Chronic) Hypertensive CKD (chronic kidney disease) (Chronic) Surgical History H/O parathyroidectomy (Chronic) Hx of cardiac cath (Chronic) H/O benign neoplasm (Resolved) Family History Other Heart disease Social History Smoking/Tobacco Use Status: Former Tobacco Use Alcohol Intake: never Drug use: Never Do you feel safe at home: Yes
--- NOTE | 2018-12-24 11:10 | W.PM.DS.N ---
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 (12) Acute renal insufficiency: Status: Acute (13) DVT prophylaxis: Status: Acute (14) Discharge planning issues: Status: Acute Discharge Plan Disposition Patient Disposition: HOME Condition: Good Discharge Details Chief Complaint: SOB Reason For Visit: RAPID AFIB *See DOWNTIME SCANNING* Admit Date/Time: 12/21/18 09:09 Admit Provider: Sophia Estrada Attending Provider: Sophia Estrada Primary Care Provider: Cande Mo ED Midlevel Provider: Roland Gonzales ED Provider: Provider,Temporary Hospital Course Hospital Course: I thought I had a cold or a pneumonia Narrative: Ms Davis is a 68 year old female with PMHx of CAD s/p 2 stents, chronic Afib on anticoagulation with eliquis, prediabetes, Hypertension, CKD, who presented to [facility] ED complaining of shortness of breath, productive cough with green blood-tinged sputum, and wheezing for several days, so bad today that she had to come to the hospital. She did not have any chest pain, dizziness, or palpitations. She was surprised to find out that she was in Rapid Afib with HR of 160's. She was treated with cardizem bolus and drip. We were asked to admit the patient for further care. The patient states that she also has had rhinorrhea, sore throat, some ankle swelling. She denies abdominal pain, urinary symptoms, diarrhea, constipation, or blood in stool. She had a short course in ICU on a drip when she became rate controlled and transferred out yesterday. She has been controlled afib from 70's-100's. Today she looks well and sounds well. She would like to go home. She denies hemoptysis since admission. Her lungs are clear. Plan will be continue her course of antibiotics and a tapering steroid dose. Follow up with PCP in 1 week. Recommend an outpatient chest CT, and sleep study. She will need a repeat CBC with CMP in 2 days. She denies SOB, CP, n/v/d .(1) Sepsis: Likely due to bronchitis. Obtain blood cultures negative, sputum C&S normal cesar. Treat with empiric doxycycline, rocephin. Provide antitussives, steroids, nebs. (2) Rapid atrial fibrillation: Likely due to above Controlled at this time Resumed home metoprolol. Continue anticoagulation. (3) Acute bronchitis: As above (4) Acute CHF: Likely due to rapid ventricular rate. S/p 1 dose of lasix in ED. Monitor I/O's, daily weights. May require more diuresis. Check echo. Check TSH. R/o ACS. (5) Hemoptysis: Mild, in setting of anticoagulation, none since admission (6) Prediabetes: Hold metformin. We expect steroid-induced hyperglycemia. Provide SSI. (7) Obstructive sleep apnea: Needs an outpatient sleep studies. (8) Erythrocytosis: Suspect patient has pulmonary hypertension due to JESICA. Will need a sleep study; echo is being obtained. (9) Abnormal LFTs: Etiology unclear. Patient reports no symptoms. Will trend. Consider imaging if sx occur. Will check hepatitis panel still pending, follow with PCP regarding results. (10) Hypomagnesemia: resolved, she was replete and monitor (11) Discharge planning issues: Advanced directives discussed. The patient would like to be DNR/DNI. She does not have a COLST form with her; she is not sure if there is a document. (12) DVT prophylaxis: Continue home therapeutic eliquis Home Meds and New Rx's Prescriptions: New benzonatate 200 mg Capsule 200 mg PO TID Qty: 20 RF: 0 diltiazem HCl 120 mg Capsule,Extended Release 24hr 240 mg PO DAILY Qty: 30 RF: 0 doxycycline hyclate 100 mg capsule 100 mg PO BID Qty: 10 RF: 0 cefpodoxime 200 mg tablet 200 mg PO BID Qty: 16 RF: 0 prednisone 10 mg tablet 10 mg PO DAILY Qty: 65 RF: 0 Continued Eliquis 5 MG tablet 5 mg PO BID Qty: 60 RF: 11 aspirin 325 MG tablet 325 mg PO DAILY AM RF: 0 nitroglycerin 0.4 MG tablet, sublingual 0.4 mg Sublingual PER PROTOCOL RF: 0 cholecalciferol (vitamin D3) 1,000 UNITS tablet 1,000 units PO DAILY RF: 0 metformin 500 mg Tablet 500 mg PO DAILY RF: 0 hydrochlorothiazide 25 mg Tablet 25 mg PO DAILY PRN PRNRF: 0 calcium carbonate 430 mg calcium (1,000 mg) Tablet,Chewable 1,000 mg PO DAILY RF: 0 metoprolol succinate [Toprol XL] 50 mg Tablet Extended Release 24 Hr 50 mg PO DAILY RF: 0 lisinopril 10 mg Tablet 10 mg PO DAILY RF: 0 Discharge Instructions Instructions: Heart Failure (GEN), Atrial Fibrillation (GEN), Antibiotic Resistant Bacteria (GEN), Acute Bronchitis (GEN), Liver Profile (GEN) Additional Instructions: Follow up with your Primary in 1 week. Finish all antibioitcs. Eat a yogurt daily for 1 month. Follow steroid taper dosing schedule and finish all medications You have been started on CARDIZEM (Diltiazem) to control you AFIB. TAKE DIRECTED. DO NOT STOP TAKING THIS MEDICATION UNLESS YOUR PROVIDER TELLS YOU TOO. Recommend outpatient sleep study to see if you have Obstructive sleep apnea. Get your labs checked in 2 days. Seek Medical attention immediately if you become, SOB, have Chest pain, n/v/d, calf swelling or fevers. Your blood sugars will be higher than normal while on steroids, continue to monitor them and follow up with your PCP if you have concerns. Activity:: Activity as Tolerated Equipment/Supplies:: No Equipment Needed Diet:: As Tolerated Discharge Orders Discharge Orders: Discharge Order (Routine); Ordered 12/24/18 Ordered By: Katey Fajardo Other Ambulatory Orders: Complete Blood Count w/Diff (Routine) Location: Determined by Patient Ordered By: Katey Fajardo Comprehensive Metabolic Panel (Routine) Location: Determined by Patient Ordered By: Katey Fajardo Magnesium (Routine) Location: Determined by Patient Ordered By: Katey Fajardo DS: Data Vitals/I&O Vitals and I&O: Vital Signs Temperature 35.9 C L 12/24/18 07:25 Temperature Source Tympanic 12/24/18 07:25 Pulse 95 H 12/24/18 08:33 Pulse Rhythm Irregular 12/24/18 08:24 Pulse 94 H 12/23/18 08:00 Respiratory Rate 18 12/24/18 07:25 Respiratory Effort 12/24/18 08:24 Respiratory Depth Normal 12/24/18 08:24 Respiratory Pattern Normal 12/24/18 08:24 Blood Pressure 143/86 H 12/24/18 07:25 Blood Pressure Mean 86 12/23/18 07:25 Blood Pressure Position Supine 12/22/18 10:10 Pulse Oximetry 93 L 12/24/18 07:25 Oxygen Delivery Method Room Air 12/24/18 07:25 Oxygen Flow Rate 0 12/24/18 07:25 Pain Level 0 12/24/18 07:25 Intake & Output 12/23/18 12/23/18 12/24/18 11:59 23:59 11:59 Intake Total 870 / 1860 990 / 1860 100 / 100 Output Total 1525 / 3200 1675 / 3200 1450 / 1450 Balance -655 / -1340 -685 / -1340 -1350 / -1350 Weight 88.7 kg Intake: IV 100 / 250 150 / 250 100 / 100 Oral 770 / 1610 840 / 1610 Output: Urine 1525 / 3200 1675 / 3200 1450 / 1450 Other: Urine Color Yellow Yellow Yellow Urine Appearance Clear Clear Clear Urine Odor Normal Normal Comment late entry Voiding Methods Bedside Commode Toilet Toilet Labs on day of discharge: Preliminary micro results at discharge 12/22/18 14:30 Sputum Culture - Preliminary Sputum Normal Cesar 12/21/18 14:38 Blood Culture - Preliminary Blood NO GROWTH 48 HOURS 12/21/18 14:25 Blood Culture - Preliminary Blood NO GROWTH 48 HOURS [facility] Medical History Atrial fibrillation (Chronic 04/29/14) Hypertension (Chronic) CAD (coronary artery disease) (Chronic) Obesity (Chronic) BMI 33.0-33.9,adult (Chronic) Tobacco abuse (Resolved) Osteoarthritis (Chronic) H/O hypercalcemia (Chronic) H/O hyperparathyroidism (Chronic) Elevated hematocrit (Chronic) Elevated hemoglobin (Chronic) Impaired fasting glucose (Chronic) Metabolic syndrome (Chronic) Hypertensive CKD (chronic kidney disease) (Chronic) Surgical History H/O parathyroidectomy (Chronic) Hx of cardiac cath (Chronic) H/O benign neoplasm (Resolved) Family History Other Heart disease Social History Smoking/Tobacco Use Status: Former Tobacco Use Alcohol Intake: never Drug use: Never Do you feel safe at home: Yes
[2018-12-24 11:17] VITALS: PULSE 110
--- NOTE | 2018-12-24 14:38 | PDOC.CMDIS ---
LACE Index Scoring Tool - Questions: Length of Stay (in days): 3 Acuity (Admit via E.D.?): Yes Comorbidities: Diabetes w/o Complication, Congestive Heart Failure, Liver or Renal Disease E.D. Visits: 2 - Answers: Total Score: 13 Risk of Readmission: High Risk Care Management Discharge Reason for Hospitalization: A-Fib, Sepsis Discharge Plan: Edwige will return home today. No services will be neeeded. Family will transpot by car. Patient/Family Education Needs: Discharge instructions.
[2018-12-25 12:34] LABS: HBs Antibody, Qual Negative; HBs Antibody, Quant <3.1 mIU/mL; Hepatitis B Core Antibody Negative (NEGAT); Hepatitis B surface Ag Negative (NEGAT); Hepatitis C Ab w Rflx HCV PCR Negative (NEGAT)
== END 2018-12-24 13:15 | disposition home or self-care (01) | DRG 202 ==
LOC: ER 09:33 → ICU 11:19 → MS 12-24 10:38 → ICU 12-26 11:12 → MS 12-26 11:12
PROVIDERS: Emergency Medicine; Admitting Provider Internal Medicine; PCP Family Medicine; Visit Provider Family Medicine
DX: J20.9 Acute bronchitis, unspecified (principal); A41.9 Sepsis, unspecified organism; R04.2 Hemoptysis; I48.0 Paroxysmal atrial fibrillation; Z79.01 Long term (current) use of anticoagulants; I50.9 Heart failure, unspecified; I11.0 Hypertensive heart disease with heart failure; R73.03 Prediabetes; G47.33 Obstructive sleep apnea (adult) (pediatric); D75.1 Secondary polycythemia; I27.21 Secondary pulmonary arterial hypertension; N28.9 Disorder of kidney and ureter, unspecified; E83.42 Hypomagnesemia; Z86.19 Personal history of other infectious and parasitic diseases; Z66 Do not resuscitate
CPT/HCPCS: 36415; 80048; 80053; 80076; 86704; 86706; 86803; 87040; 87340; 93005; 93306; 96365; 96366; 96368; 99223; 99232; 99233; 99239; 99285; 71045; 76700; 81003; 81015; 83735; 83880; 84439; 84443; 84484; 85025; 85610; 85730; 87070; 87086; 87205; 93010; 94640; J0696; J1941; J2930; J7512; J7620

== ENCOUNTER 2018-12-26 10:24 | Outpatient (CLI) | payer MEDICARE, OTHER, SELFPAY ==
[2018-12-26 10:48] LABS: Abs Immature Grans 0.27 k/cumm (0.0-0.09); Absolute Basophil Count 0.05 k/cumm (0.0-0.2); Absolute Eosinophil Count 0.05 k/cumm (0.0-0.7); Basophils % 0.3; Eosinophils % 0.3; HCT 54.6 % (36.0-46.0); HGB 18.9 g/dL (12.0-15.5); Immature Grans % 1.6; Lymphocytes % 12.2; Mean Corp. HGB Concentration 34.6 g/dL (32.0-36.0); Mean Corpuscular Hemoglobin 30.3 pg (27.0-33.0); Mean Corpuscular Volume 87.6 fL (80-95); Mean Platelet Volume 10.9 fL (8.0-11.0); Monocytes % 8.2; Neutrophils % 77.4; Platelet Count 309 x1000/uL (130-400); RBC 6.23 m/cumm (4.00-5.20); RBC Distribution Width 13.7 % (11.7-14.6); White Blood Cell Count 17.25 k/cumm (4.4-10.8)
[2018-12-26 10:55] LABS: Absolute Monocyte Count 1.41 k/cumm (0.11-0.7); Absolute Neutrophil Count 13.35 k/cumm (1.2-6.7)
[2018-12-26 11:08] LABS: ALT 68 U/L (12-78); AST 29 U/L (15-37); Albumin 3.3 g/dL (3.4-5.0); Alkaline Phosphatase 87 U/L (46-116); Anion Gap 8.6 mmol/L (3-11); BUN 40 mg/dL (7-18); CO2 30.4 mmol/L (21.0-32.0); CREATININE 1.48 mg/dL (0.55-1.02); Calcium 9.3 mg/dL (8.5-10.1); Chloride 97 mmol/L (98-107); Estimated GFR 35.07 (mL/min/1.73m2); Glucose 193 mg/dL (70-100); Magnesium 2.2 mg/dL (1.8-2.4); Potassium 3.8 mmol/L (3.5-5.1); Sodium 136 mmol/L (136-145); Total Protein 7.1 g/dL (6.4-8.2)
== END 2018-12-26 10:44 ==
PROVIDERS: PCP Family Medicine; Visit Provider Nurse Practitioner Family
DX: J20.9 Acute bronchitis, unspecified (principal); R94.8 Abnormal results of function studies of other organs and systems
CPT/HCPCS: 36415; 80053; 83735; 85025

== ENCOUNTER 2019-01-01 14:52 | Outpatient (CLI) | payer MEDICARE, OTHER, SELFPAY ==
--- NOTE | 2019-01-01 14:49 | DI.RAD_ITS ---
SYMPTOM/DIAGNOSIS: BRONCHITIS, J40 PA AND LATERAL CHEST: Comparison is made with 12/21/18. The heart is again noted to be enlarged. Sternal wires are seen. Surgical clips are again noted in the medial left upper lobe. The lungs appear clear. No infiltrate, effusion or pulmonary edema is seen. IMPRESSION: Cardiomegaly, no acute abnormality.
[2019-01-01 15:54] LABS: Absolute Basophil Count 0.02 k/cumm (0.0-0.2); Absolute Eosinophil Count 0.02 k/cumm (0.0-0.7); Absolute Lymphocyte Count 1.22 k/cumm (1.2-3.4); Absolute Monocyte Count 0.66 k/cumm (0.11-0.7); Basophils % 0.1; Eosinophils % 0.1; HCT 54.5 % (36.0-46.0); HGB 18.4 g/dL (12.0-15.5); Immature Grans % 0.6; Lymphocytes % 7.5; Mean Corp. HGB Concentration 33.8 g/dL (32.0-36.0); Mean Corpuscular Hemoglobin 30.1 pg (27.0-33.0); Mean Corpuscular Volume 89.2 fL (80-95); Mean Platelet Volume 11.4 fL (8.0-11.0); Monocytes % 4.1; Neutrophils % 87.6; Platelet Count 264 x1000/uL (130-400); RBC 6.11 m/cumm (4.00-5.20); RBC Distribution Width 13.5 % (11.7-14.6); White Blood Cell Count 16.21 k/cumm (4.4-10.8)
[2019-01-01 16:31] LABS: ALT 45 U/L (12-78); AST 15 U/L (15-37); Albumin 3.5 g/dL (3.4-5.0); Alkaline Phosphatase 91 U/L (46-116); Anion Gap 8.9 mmol/L (3-11); BUN 35 mg/dL (7-18); Bilirubin, Total 1.3 mg/dL (0.2-1.0); CO2 32.1 mmol/L (21.0-32.0); CREATININE 1.44 mg/dL (0.55-1.02); Calcium 9.2 mg/dL (8.5-10.1); Chloride 98 mmol/L (98-107); Glucose 309 mg/dL (70-100); Magnesium 2.1 mg/dL (1.8-2.4); Potassium 4.4 mmol/L (3.5-5.1); Sodium 139 mmol/L (136-145); Total Protein 6.6 g/dL (6.4-8.2)
== END 2019-01-01 15:12 ==
PROVIDERS: Nurse Practitioner Family; PCP Family Medicine; Visit Provider Family Medicine
DX: J20.9 Acute bronchitis, unspecified (principal); I51.7 Cardiomegaly; R94.5 Abnormal results of liver function studies
CPT/HCPCS: 80053; 71046; 83735; 85025

== ENCOUNTER 2019-02-13 01:10 | Outpatient (CLI) | payer MEDICARE, OTHER, SELFPAY ==
--- NOTE | 2019-02-13 08:30 | DIABASSESS_ITS ---
DESCRIPTION: Edwige Davis presents for diabetes self management focused on nutrition. She is interested in how to count carbohydrates. A1c 7.3 up from 6.7 self reported. BMI 33 down from 35 ~2 years ago. Edwige has recently been hospitalized and is wanting to manage her cholesterol without medication but takes lisinopril and HCTZ for hypertension. Edwige has started cutting back on bread with lunch and supper and limits herself to 1 bread with peanut butter at breakfast. States she eats in 'craves'; Eats what she craves until satisfied, then leaves it alone. She loves baked beans and potato. She does not use salt. Edwieg cannot walk more than 1/2 hour without being in pain. She describes herself as 'lazy'. Edwige does not monitor her blood sugar. She denies stress. INTERVENTION: Edwige is motivated to stay off medication for diabetes and cholesterol. She is aware of red rice yeast and this is encouraged. Reviewed carbohdyrate sources, portions, distribution, balance with protein/fat/vegetables. Discussed cholesterol foods. Discussed physical activity as a significant impact on heart and diabetes and brainstormed ideas. Reviewed benefits of monitoring blood sugars to know how it is impacting diabetes management and she agrees. Random blood sugar today 165 after bread and peanut butter. Described ways to monitor to help her assess impact of food choices. Reviewed procedure. She has a friend who does this and can help her. She is given food guide and foot care guide. ACTION: Edwige will call PCP for glucometer look into swimming for physical activity continue watching carobhydrate sources and portions Edwige was engaged and motivated to manage her blood sugars. We will f/u by telephone as desired. Individual MNT __3__ units billed TIME IN: 829 OUT: 919 No DM group education series being offered at this time.
== END 2019-02-13 01:30 ==
PROVIDERS: PCP Nurse Practitioner Family; Visit Provider Dietitian, Registered
DX: E11.9 Type 2 diabetes mellitus without complications (principal); Z71.3 Dietary counseling and surveillance
CPT/HCPCS: 97802

== ENCOUNTER 2019-02-21 00:55 | Outpatient (CLI) | payer MEDICARE, OTHER, SELFPAY ==
--- NOTE | 2019-02-21 09:28 | DI.MAMMO_ITS ---
SYMPTOM/DIAGNOSIS: SCREENING Z12.31 BILATERAL SCREENING MAMMOGRAM: Mammograms were interpreted according to the usual protocol including computer analysis with CAD system, tomosynthesis and C view imaging. Comparison is made with exams from 2010 through 2017. The breasts are composed of heterogeneously dense fibroglandular tissue. Breast density category C. No suspicious masses or suspicious microcalcifications are seen. There has been no significant change. IMPRESSION: Category 1, negative mammogram. Yearly screening mammography is recommended. Breast density category C. SA ASSESSMENT OF FINDINGS: Negative. Category 1. Patient will receive a letter notifying them of these results. Bi-RADS category C. The breasts are heterogeneously dense, which may obscure small masses.
== END 2019-02-21 01:15 ==
PROVIDERS: PCP Nurse Practitioner Family; Visit Provider Nurse Practitioner Family
DX: Z12.31 Encounter for screening mammogram for malignant neoplasm of breast (principal)
CPT/HCPCS: 77063; 77067

== ENCOUNTER 2019-05-01 15:59 | Outpatient (REF) | payer MEDICARE, OTHER, SELFPAY ==
[2019-05-01 21:54] LABS: HCT 51.3 % (36.0-46.0); HGB 17.5 g/dL (12.0-15.5); Mean Corp. HGB Concentration 34.1 g/dL (32.0-36.0); Mean Corpuscular Volume 90.8 fL (80-95); Mean Platelet Volume 12.1 fL (8.0-11.0); Platelet Count 254 x1000/uL (130-400); RBC 5.65 m/cumm (4.00-5.20); RBC Distribution Width 13.1 % (11.7-14.6); White Blood Cell Count 8.92 k/cumm (4.4-10.8)
[2019-05-01 22:08] LABS: Hemoglobin A1C 6.6 % (4.5-6.2)
[2019-05-01 22:18] LABS: ALT 24 U/L (14-59); AST 20 U/L (15-37); Anion Gap 11.6 mmol/L (3-11); BUN 24 mg/dL (7-18); CO2 28.4 mmol/L (21.0-32.0); CREATININE 1.27 mg/dL (0.55-1.02); Calcium 9.1 mg/dL (8.5-10.1); Chloride 100 mmol/L (98-107); Estimated GFR 41.85 (mL/min/1.73m2); Glucose 96 mg/dL (70-100); Potassium 3.7 mmol/L (3.5-5.1); Sodium 140 mmol/L (136-145)
== END 2019-05-01 16:19 ==
LOC: NCHCN 15:59
PROVIDERS: PCP Nurse Practitioner Family; Visit Provider Nurse Practitioner Family
DX: E11.9 Type 2 diabetes mellitus without complications (principal); E78.5 Hyperlipidemia, unspecified; N18.9 Chronic kidney disease, unspecified; D45 Polycythemia vera
CPT/HCPCS: 80048; 85027; 83036; 84450; 84460

== ENCOUNTER 2019-06-05 15:49 | Outpatient (CLI) | payer MEDICARE, OTHER, SELFPAY ==
[2019-06-05 16:31] LABS: NT-proBNP 2445 pg/mL (<300)
[2019-06-05 17:18] LABS: D-Dimer 548 ng/mlFEU (<500)
== END 2019-06-05 16:09 ==
PROVIDERS: PCP Nurse Practitioner Family; Visit Provider Nurse Practitioner Family
DX: R05 Cough (principal); R06.02 Shortness of breath
CPT/HCPCS: 36415; 83880; 85379

== ENCOUNTER 2019-06-08 13:55 | Outpatient (CLI) | payer MEDICARE, OTHER, SELFPAY ==
--- NOTE | 2019-06-08 12:59 | DI.RAD_ITS ---
EXAM: XR CHEST 2V PA AND LATERAL INDICATION: SOB R06.02. COMPARISON: No exams were available for comparison TECHNIQUE: 2D digital imaging was performed. FINDINGS: The heart size is at the upper limits of normal and stable. No consolidating infiltrates are present . No pleural effusion or pneumothorax is present. Postsurgical changes are seen in the upper chest. There is hyperexpansion of the lungs with flattened diaphragms consistent with underlying COPD. De generative changes are seen in the spine. IMPRESSION: No acute pulmonary process.
== END 2019-06-08 14:15 ==
PROVIDERS: PCP Nurse Practitioner Family; Visit Provider Nurse Practitioner Family
DX: R06.02 Shortness of breath (principal); J44.9 Chronic obstructive pulmonary disease, unspecified
CPT/HCPCS: 71046

== ENCOUNTER 2019-07-19 16:38 | Outpatient (REF) | payer MEDICARE, OTHER, SELFPAY ==
--- NOTE | 2019-07-19 15:30 | ENDOMET_PTH ---
PATIENT: Edwige Davis LOC: [facility] U#:[id number] AGE/SX: 68/F ROOM: RE07/19/[address]: Jarrell Page MD : 1950 BED: DIS: 07/19/2019 SPEC #: [id number] RECD: 07/19/19 17:57 STATUS: NAVDEEP REQ #: [id number] JACKSON: 07/19/19 15:[address]: Jarrell Page DEPT: Surgical Specimen RECD BY: Ashley Pepper ENTERED: 07/19/19 17:58 SP TYPE: Endomet OTHR DR: Esther Verma Tissues: 1 - ENDOMETRIUM BX/KYMBERLY Procedures: GROSS AND MICRO LEVEL 4 Comments: [id number]
== END 2019-07-19 16:58 ==
LOC: LBN 16:38
PROVIDERS: PCP Nurse Practitioner Family; Visit Provider Obstetrics & Gynecology
DX: N85.01 Benign endometrial hyperplasia (principal); N95.0 Postmenopausal bleeding
CPT/HCPCS: 88305

== ENCOUNTER 2019-07-22 11:15 | Inpatient (IN) | payer MEDICARE, OTHER, SELFPAY ==
[2019-07-22] VITALS (124 sets, daily range): BP systolic 65–160; BP diastolic 39–136; PULSE 51–166; RESP 13–32; TEMP 36.2–36.5; O2SAT 88–97
--- NOTE | 2019-07-22 10:27 | DI.RAD_ITS ---
EXAM: XR PORTABLE CHEST AP INDICATION: SOB, palpitations, Afib. COMPARISON: XR CHEST 2V PA LATERAL from 06/08/2019 TECHNIQUE: 2D digital imaging was performed. FINDINGS: The heart is enlarged. Sternal wires are seen. There are surgical clips posteriorly. The lungs appe ar clear. IMPRESSION: Cardiomegaly. No acute findings.
[2019-07-22] MEDS: Normal Saline 1,000 ML 1000 ML IV (11:35)
[2019-07-22] MEDS: Normal Saline Flush 10 ML SYR IVP ×3 (11:35→22:43)
[2019-07-22 11:39] LABS: Abs Immature Grans 0.02 k/cumm (0.0-0.09); Absolute Basophil Count 0.01 k/cumm (0.0-0.2); Absolute Lymphocyte Count 1.33 k/cumm (1.2-3.4); Absolute Monocyte Count 0.91 k/cumm (0.11-0.7); Absolute Neutrophil Count 5.39 k/cumm (1.2-6.7); Basophils % 0.1; HCT 50.8 % (36.0-46.0); HGB 17.4 g/dL (12.0-15.5); Immature Grans % 0.3 %; Lymphocytes % 17.4; Mean Corp. HGB Concentration 34.3 g/dL (32.0-36.0); Mean Corpuscular Hemoglobin 29.8 pg (27.0-33.0); Mean Platelet Volume 11.5 fL (8.0-11.0); Monocytes % 11.9; Neutrophils % 70.3; Platelet Count 224 x1000/uL (130-400); RBC 5.84 m/cumm (4.00-5.20); RBC Distribution Width 14.5 % (11.7-14.6); White Blood Cell Count 7.66 k/cumm (4.4-10.8)
--- NOTE | 2019-07-22 11:41 | ED.GENADUL_ITS ---
Discharge Plan Disposition Patient Disposition: [facility] INPATIENT Discharge Details Chief Complaint: Palpitatns Clinical Impression: Atrial fibrillation, Hypotension Admit Date/Time: 07/22/19 13:36 Admit Provider: Sophia Estrada Attending Provider: Sophia Estrada Primary Care Provider: Esther Verma ED Provider: Beni Stahl Medical Decision Making This is a nontoxic-appearing 68-year-old female presenting to the emergency department with A. fib and RVR with a heart rate in the 150s. No ST changes on EKG. Initial BP was 91/62. Her initial labs showed a BUN of 42 and a creatinine of 2. She is on a diuretic and admits to feeling slightly dehydrat ed. Her blood pressure responded to 1 L of normal saline, however her heart rate remained in the 140s. I did give the patient 1 dose of Lopressor 5 mg IV push, however this subsequently dropped her blood pressure back down to 86 systolic. She received another 500 cc of normal saline with good response with her most recent blood pressure of 97/62. Her troponin is unremarkable. CBC within normal limits. She has a slight hypokalemia at 3.3 and above-noted BUN/creatinine readings. Her chest x-ray is negative for fluid overload however she has a BNP of 4000. I discussed admission with Dr. Estrada. Upon her examination the patient complained of increased vaginal bleeding since her endometrial biopsy roughly 4 days ago. She is concerned that this may be underlying endometritis with confounding bronchitis. She would patient placed on broad-spectrum antibiotics and admit HPI General Date/Time Provider Initiated Documentation: 07/22/19 11:18 . HPI Narrative: Patient is a 68-year-old female with a significant past medical history for chronic A. fib on Eliquis recently increased her metoprolol dosing from 50 mg daily 250 mg extended release daily. Is a history of coronary artery disease with most recent stent roughly 3 to 4 years ago. She presents today with roughly 12 hours of palpitations and shortness of breath. Symptoms are similar to her previous A. fib episodes. She denies missing any medication. She denies any chest pain. She has had some shortness of breath with exertion. No fevers. She denies any abdominal pain. Related Data Home Medications Medication Instructions Recorded Confirmed aspirin 325 mg PO DAILY AM 11/29/12 07/22/19 nitroglycerin 0.4 mg SUBLINGUAL PER PROTOCOL 11/29/12 07/22/19 cholecalciferol (vitamin D3) 1,000 units PO DAILY 09/26/13 07/22/19 Eliquis 5 mg PO BID #60 tab-cap 10/21/16 07/22/19 calcium carbonate 1,000 mg PO DAILY 12/21/18 07/22/19 hydrochlorothiazide 25 mg PO DAILY 12/21/18 07/22/19 lisinopril 10 mg PO DAILY 12/21/18 07/22/19 metformin 500 mg PO DAILY 12/21/18 07/22/19 metoprolol succinate 150 mg PO DAILY 07/22/19 07/22/19 Allergies Allergy/AdvReac Type Severity Reaction Status Date / Time iohexol [From Omnipaque 140] Allergy Skin Rash Verified 07/22/19 11:31 Sulfa (Sulfonamide Allergy Verified 07/22/19 11:31 Antibiotics) erythromycin base AdvReac GI Verified 07/22/19 11:31 [Erythromycin Base] metal Allergy Intermediate Skin Rash Uncoded 07/22/19 11:31 General Stated Complaint: Palpitatns JOSE DE JESUS: 3 Review of Systems Constitutional Constitutional: Denies chills, Denies fatigue, Denies fever(s), Denies lethargy, Denies malaise and Denies night sweats Cardiovascular Cardiovascular: Denies chest pain, Denies chest pain at rest, Denies chest pain with activity, Denies diaphoresis, Denies syncope, Reports rapid heart rate, Denies pedal edema, Denies edema, Reports irregular heart rhythm, Denies claudication, Denies leg edema, Reports lightheadedness, Reports palpitations, Reports dyspnea, Reports dyspnea on exertion, Denies orthopnea and Denies paroxysmal nocturnal dyspnea Respiratory Respiratory: Denies cough, Denies hemoptysis, Reports dyspnea and Reports dyspnea on exertion Gastrointestinal Gastrointestinal: Denies abdominal pain, Denies nausea, Denies vomiting and Denies hematemesis Genitourinary Genitourinary: Denies dysuria Musculoskeletal Musculoskeletal: Denies numbness and Denies stiffness Integumentary/Breasts Skin/Breast: Denies rash Neurologic Neurologic: Denies syncope and Denies numbness Endocrine Endocrine: Denies fatigue and Reports palpitations [facility] Medical History Atrial fibrillation (Chronic 04/29/14) BMI 33.0-33.9,adult (Chronic) CAD (coronary artery disease) (Chronic) a. drug eluting stents Elevated hematocrit (Chronic) Elevated hemoglobin (Chronic) H/O hypercalcemia (Chronic) H/O hyperparathyroidism (Chronic) a. Surgery to remove adenomas Hypertension (Chronic) Hypertensive CKD (chronic kidney disease) (Chronic) A. probably stage 1 or 2 B. baseline creatinine 1.1 to 1.2 Impaired fasting glucose (Chronic) Metabolic syndrome (Chronic) a. triglycerides greater than 300 and HDL less than 30 Obesity (Chronic) Osteoarthritis (Chronic) Post-menopausal bleeding (Acute) Tobacco abuse (Resolved) a. age [age] with eight year hiatus in there somewhere, appx 1/2 to 1 PPD Surgical History H/O benign neoplasm (Resolved) resected H/O parathyroidectomy (Chronic) s/p 2 stents Hx of cardiac cath (Chronic) Family History Other Heart disease Social History Smoking/Tobacco Use Status: Former Tobacco Use Alcohol Intake: never Drug use: Never Do you feel safe at home: Yes Exam Const General: cooperative, comfortable and no acute distress Orientation: alert, awake and oriented x3 HENMT Head: normal to inspection Ears: hearing grossly normal bilaterally General nose exam: external nose normal Face and sinus: normal facial exam Mouth: oral mucosae normal Eyes General: appearance normal, both eyes and all related structures Visual Mirza: normal visual mirza by confrontation Pupils: PERRL EOM: EOM intact bilaterally Neck Neck: normal visual inspection and full ROM Carotids: normal carotid upstroke Chest Chest: normal inspection of the chest and normal palpation of entire chest wall Resp Effort & Inspection: normal respiratory effort and able to speak in complete sentences Auscultation: clear to auscultation bilaterally Cardio Rate: tachycardic Rhythm: abnormal rhythm irregularly irregular Pulses: normal peripheral pulses GI Inspection: normal to inspection Palpation: soft and nontender Skin General skin exam: no rashes or lesions noted Extrem General: no pedal edema and no calf tenderness Course Vital Signs Vital signs: Vital Signs Temperature 36.5 C 07/22/19 11:20 Pulse 156 H 01/05/20 11:20 Respiratory Rate 07/22/19 11:20 Blood Pressure 91/62 L 07/22/19 11:20 Temperature 36.5 C 07/22/19 11:20 Temperature Source Temporal Artery Scan 07/22/19 11:20 Pulse 156 H 07/22/19 11:20 Respiratory Rate 07/22/19 11:20 Blood Pressure 91/62 L 07/22/19 11:20 Blood Pressure Position Supine 07/22/19 11:20 Oxygen Delivery Method Room Air 07/22/19 11:20 Oxygen Flow Rate 0 07/22/19 11:20 Pain Level 0 07/22/19 11:20 Lab/Test Results Lab/Test Results: Laboratory Tests Range/Units 07/22/19 11:30 WBC (4.4-10.8) k/cumm 7.66 RBC (4.00-5.20) m/cumm 5.84 H Hgb (12.0-15.5) g/dL 17.4 H Hct (36.0-46.0) % 50.8 H MCV (80-95) fL 87.0 MCH (27.0-33.0) pg 29.8 MCHC (32.0-36.0) g/dL 34.3 RDW (11.7-14.6) % 14.5 Plt Count (130-400) x1000/uL 224 MPV (8.0-11.0) fL 11.5 H Immature Gran % % 0.3 Neutrophils % 70.3 Lymphocytes % 17.4 Monocytes % 11.9 Eosinophils % 0.0 Basophils % 0.1 Absolute Neutrophils (1.2-6.7) k/cumm 5.39 Absolute Lymphocytes (1.2-3.4) k/cumm 1.33 Absolute Monocytes (0.11-0.7) k/cumm 0.91 H Absolute Eosinophils (0.0-0.7) k/cumm 0.00 Absolute Basophils (0.0-0.2) k/cumm 0.01
[2019-07-22 11:54] LABS: ALT 34 U/L (14-59); AST 51 U/L (15-37); Albumin 3.3 g/dL (3.4-5.0); Alkaline Phosphatase 55 U/L (46-116); Anion Gap 11.4 mmol/L (3-11); BUN 49 mg/dL (7-18); Bilirubin, Total 2.3 mg/dL (0.2-1.0); CO2 31.6 mmol/L (21.0-32.0); CREATININE 2.07 mg/dL (0.55-1.02); Calcium 9.1 mg/dL (8.5-10.1); Chloride 97 mmol/L (98-107); Estimated GFR 23.81 (mL/min/1.73m2); Glucose 149 mg/dL (74-106); Magnesium 2.1 mg/dL (1.8-2.4); Potassium 3.3 mmol/L (3.5-5.1); Sodium 140 mmol/L (136-145); Total Protein 7.6 g/dL (6.4-8.2); Troponin I 0.05 ng/Ml (<0.06)
[2019-07-22] MEDS: Metoprolol 5 MG/5 ML VIAL IVP (12:20)
[2019-07-22 12:26] LABS: NT-proBNP 4273 pg/mL (<300)
[2019-07-22] MEDS: Normal Saline 500 ML 1000 ML IV (12:59)
--- NOTE | 2019-07-22 13:04 | DI.VRAD_ITS ---
PROCEDURE INFORMATION: Exam: XR Chest, 1 View Exam date and time: 07/22/2019 12:29 PM Age: 68 years old Clinical indication: Other: Dizzy TECHNIQUE: Imaging protocol: XR of the chest Views: 1 view. COMPARISON: CR XR CHEST 2V PA LATERAL 06/08/2019 12:57 PM FINDINGS: Lungs: Unremarkable. No consolidation. Pleural space: Blunting in the left costophrenic angle may represent small left pleural effusion or pleural reaction. Heart/Mediastinum: Stable cardiac silhouette Bones/joints: Median sternotomy IMPRESSION: Blunting in the left costophrenic angle may represent small left pleural effusion or pleural reaction. Dictated and Authenticated by: Hallie Marie MD. Ordering:HOLLY Bazan MD
--- NOTE | 2019-07-22 13:33 | W.PM.HP.N ---
Date of service: 07/22/19 Time of Service: 13:33 Assessment and Plan Assessment and plan (1) Septic shock: Status: Acute Assessment and plan: Even though we do not have a recorded fever or leucocytosis here, the story with productive cough, subjective fevers at home, and recent endometrial instrumentation is compelling. The patient is being initiated on broad spectrum antibiotics (vancomycin, zosyn, flagyl) after blood, urine, and sputum cultures are obtained. She does seem to be transiently fluid responsive, but given elevated proBNP, I think we have to transition to pressors. Given the high heart rate, phenylephrine is appropriate. Will trial this peripherally for the next few hours. Will abstain from placing a central line for now. Obtaining PARTS BACK COUNTER MAN consult. May require imaging of the pelvis - to be discussed. (2) Chronic atrial fibrillation with rapid ventricular response: Status: Acute Assessment and plan: As above - right now, I think it is ok to focus on treating infection and ensuring that the patient has an adequate volume. I would not start her on beta blockers/CCB or digoxin at this time. Will need cardiac monitoring and serial troponins. EKG in am. (3) Endometritis: Status: Suspected Assessment and plan: Consult [employer]S BACK COUNTER MAN (4) Pneumonia: Status: Acute Assessment and plan: As above - clinically, I think the patient does have it, and it is causing bronchospasm. Treat with broad spectrum antibiotics, nebs, and IV steroids. (5) Acute respiratory failure with hypoxia: Status: Acute Assessment and plan: Due to PNA - as above (6) Moderate pulmonary arterial systolic hypertension: Status: Chronic Assessment and plan: May be the reason why the proBNP is elevated in abscence of findings of pulmonary edema on CXR. I do think we have to be careful with IVF - having said that, for now, gentle IVF are appropriate. (7) Acute kidney injury superimposed on chronic kidney disease: Status: Acute Assessment and plan: In setting of hypotension/sepsis. Will hydrate and monitor kidney function (8) Hypokalemia: Status: Acute Assessment and plan: Replete and recheck in am (9) DVT prophylaxis: Status: Acute Assessment and plan: On therapeutic eliquis (10) Discharge planning issues: Status: Acute Assessment and plan: DNR/DNI Admit to ICU. Total Critical Care Time: 60 minutes History of Present Illness History of Present Illness Chief Complaint: Palpitations and shortness of breath Narrative: Ms Davis is a 68 year old female with PMHx of Afib, on anticoagulation with eliquis as well as on rate control with metoprolol succinate which was recently increased as outpatient, as well as h/o CAD s/p [place]/stents x 2 to LAD and RCA in 2007 with non-obstructing CAD on cardiac cath in 2014, pulmonary hypertension, and post-menopausal bleeding s/p endometrial biopsy on 07/19/18, who presented to [facility] ED today complaining of palpitations. The patient states that she has not felt well for 4 days. She reports subjective fevers, a cough productive of yellow sputum, wheezing, and palpitations since this morning. The patient felt weak and like she had a hard time thinking/spelling this morning. When she arrived to the ED, her heart rate was 141, and BP of 140/80, which went downn to 73/42 after receiving 5 mg of IV metoprolol. The patient was given IVF with improvement of blood pressures up to 122/78, but then they again dropped to 70-80's. The heart rate has come down to 110-120's. The patient also came in requiring 4L of O2 to saturate 91%. Unfortunately, I cannot find documentation of her room air oxygen saturation. The patient does report RLQ pain since her endometrial bx. She denies vaginal discharge other than blood. She denies dizziness, chest pain, nausea. We were asked to admit the patient for further care. Review of Systems Narrative: 12 systems reviewed. Pertinent positives and negatives are as per HPI. [facility] Medical History (Updated 07/22/19 @ 14:19 by Sophia Estrada MD) Atrial fibrillation (Chronic 04/29/14) BMI 33.0-33.9,adult (Chronic) CAD (coronary artery disease) (Chronic) a. drug eluting stents Elevated hematocrit (Chronic) Elevated hemoglobin (Chronic) H/O hypercalcemia (Chronic) H/O hyperparathyroidism (Chronic) a. Surgery to remove adenomas Hypertension (Chronic) Hypertensive CKD (chronic kidney disease) (Chronic) A. probably stage 1 or 2 B. baseline creatinine 1.1 to 1.2 Impaired fasting glucose (Chronic) Metabolic syndrome (Chronic) a. triglycerides greater than 300 and HDL less than 30 Obesity (Chronic) Osteoarthritis (Chronic) Post-menopausal bleeding (Acute) Tobacco abuse (Resolved) a. age [age] with eight year hiatus in there somewhere, appx 1/2 to 1 PPD Surgical History H/O benign neoplasm (Resolved) resected H/O parathyroidectomy (Chronic) s/p 2 stents Hx of cardiac cath (Chronic) Social History Smoking/Tobacco Use Status: Former Tobacco Use Alcohol Intake: never Drug use: Never Do you feel safe at home: Yes Meds Home Medications and Allergies Home Medications Medication Instructions Recorded Confirmed Type aspirin 325 mg PO DAILY AM 11/29/12 07/22/19 History nitroglycerin 0.4 mg SUBLINGUAL PER PROTOCOL 11/29/12 07/22/19 History cholecalciferol (vitamin D3) 1,000 units PO DAILY 09/26/13 07/22/19 History Eliquis 5 mg PO BID #60 tab-cap 10/21/16 07/22/19 History calcium carbonate 1,000 mg PO DAILY 12/21/18 07/22/19 History hydrochlorothiazide 25 mg PO DAILY 12/21/18 07/22/19 History lisinopril 10 mg PO DAILY 12/21/18 07/22/19 History metformin 500 mg PO DAILY 12/21/18 07/22/19 History metoprolol succinate 150 mg PO DAILY 07/22/19 07/22/19 History Allergies Allergy/AdvReac Type Severity Reaction Status Date / Time iohexol [From Omnipaque 140] Allergy Skin Rash Verified 07/22/19 11:31 Sulfa (Sulfonamide Allergy Verified 07/22/19 11:31 Antibiotics) erythromycin base AdvReac GI Verified 07/22/19 11:31 [Erythromycin Base] metal Allergy Intermediate Skin Rash Uncoded 07/22/19 11:31 Exam Narrative Exam Narrative: General: Very pleasant middle-aged female, who is lying nearly flat in bed, does not appear dyspneic/tachypneic, but is flushed and looks sick, A&OX3, recognizes me Neurological: A&Ox3, no focal deficits Psychiatric: appropriate speech pattern/content Skin: visible skin intact. HEENT: Atraumatic, normocephalic, EOMI, dry MM, clear oropharynx, no submandibular or cervical lymphadenopathy, no goiter or JVD Cardiovascular: irregularly irregular rhythm, tachycardic Lungs: wheezing on expiration B (Quiet) Gastrointestinal: abdomen is soft, tender in RLQ Genitourinary: deferred Extremities: no e/c/c BLE's, 1+ B pedal pulses Results Imaging Additional studies: CXR: Blunting in the left costophrenic angle may represent small left pleural effusion or pleural reaction. EKG: Afib, HR 152, nonspecific ST-T changes Labs Result diagrams: 07/22/19 11:30 07/22/19 11:30 Labs: Laboratory Results - last 24 hr 07/22/19 07/22/19 07/22/19 11:30 11:30 11:30 WBC 7.66 RBC 5.84 H Hgb 17.4 H Hct 50.8 H MCV 87.0 MCH 29.8 MCHC 34.3 RDW 14.5 Plt Count 224 MPV 11.5 H Immature Gran % 0.3 Neutrophils % 70.3 Lymphocytes % 17.4 Monocytes % 11.9 Eosinophils % 0.0 Basophils % 0.1 Absolute Neutrophils 5.39 Absolute Lymphocytes 1.33 Absolute Monocytes 0.91 H Absolute Eosinophils 0.00 Absolute Basophils 0.01 Sodium 140 Potassium 3.3 L Chloride 97 L Carbon Dioxide 31.6 Anion Gap 11.4 H BUN 49 H Creatinine 2.07 H Estimated GFR/1.73 m2 23.81 Glucose 149 H Calcium 9.1 Magnesium 2.1 Total Bilirubin 2.3 H AST 51 H ALT 34 Alkaline Phosphatase 55 Troponin I 0.05 NT-Pro-B Natriuret Pep 4273 H Total Protein 7.6 Albumin 3.3 L Last Vital Signs Temp 36.5 C 07/22/19 11:20 Pulse 112 H 07/22/19 13:25 Resp 18 07/22/19 13:25 BP 97/62 L 07/22/19 13:25 Pulse Ox 94 L 07/22/19 13:25
[2019-07-22] MEDS: Normal Saline 500 ML IV (14:05)
[2019-07-22] MEDS: PIPERACILLIN/TAZO 3.375 GM in Normal Saline 50 ML IVPB ×2 (14:26→20:55)
[2019-07-22 14:45] LABS: C-Reactive Protein 6.12 mg/dL (0.0-0.3)
[2019-07-22 14:46] LABS: Lactate 1.1 mmol/L (0.6-1.4)
[2019-07-22] MEDS: Normal Saline 1,000 ML 125 ML IV (15:00)
--- NOTE | 2019-07-22 15:03 | W.GYNCONSULT ---
Date of service: 07/22/19 Time of Service: 15:03 Assessment and Plan Assessment and plan (1) Endometritis: Status: Ruled-out Assessment and plan: Unlikely based on patient's exam. No evidence of uterine tenderness or pelvic symptoms. I will order a pelvic ultrasound to assess her endometrial stripe and evaluate her kidneys. MILKING MACHINE OPERATOR will continue to follow the patient while she is hospitalized. Appreciate being asked to be involved in her care (2) Acute respiratory failure with hypoxia: Status: Acute (3) Acute kidney injury superimposed on chronic kidney disease: Status: Acute (4) Post-menopausal bleeding: Status: Acute Assessment and plan: Endometrial biopsy results currently pending. Pelvic ultrasound will be ordered to assess endometrial stripe and adnexal and uterine structures History of Present Illness History of Present Illness Chief Complaint: Sepsis, respiratory failure with hypoxia Narrative: Ms Davis is a 68 year old female with several chronic medical issues who presented to the [facility] ED with complaints of heart palpitations and feeling poorly for several days. Upon arrival to the emergency department she was found to be tachycardic, hypotensive with an oxygen's saturation 91% on 4 L by nasal cannula. I was asked to evaluate the patient at the request of to rule out the possibility of a endometritis, especially in the light of her recent [facility]. On 07/19/[address] patient was seen by Dr. Page for episode of light vaginal bleeding-bright red for 2 days. Not associated with any pelvic pain. Patient has not used HRT and has never had an episode of postmenopausal bleeding prior to this episode. She is on chronic anticoagulation. The results within which biopsy are currently pending. A pelvic ultrasound was scheduled to be performed in outpatient diagnostic imaging on 07/26/2019. Patient reports no bleeding since her endometrial biopsy. She has a history of incontinence and wears depends. She reports that her urine leakage has increased since the endometrial biopsy. with PMHx of Afib, on anticoagulation with eliquis as well as on rate control with metoprolol succinate which was recently increased as outpatient, as well as h/o CAD s/p [place]/stents x 2 to LAD and RCA in 2007 with non-obstructing CAD on cardiac cath in 2014, pulmonary hypertension, and post-menopausal bleeding s/p endometrial biopsy on 07/19/18, who presented to [facility] ED today complaining of palpitations. The patient states that she has not felt well for 4 days. She reports subjective fevers, a cough productive of yellow sputum, wheezing, and palpitations since this morning. The patient felt weak and like she had a hard time thinking/spelling this morning. When she arrived to the ED, her heart rate was 141, and BP of 140/80, which went downn to 73/42 after receiving 5 mg of IV metoprolol. The patient was given IVF with improvement of blood pressures up to 122/78, but then they again dropped to 70-80's. The heart rate has come down to 110-120's. The patient also came in requiring 4L of O2 to saturate 91%. Unfortunately, I cannot find documentation of her room air oxygen saturation. The patient does report RLQ pain since her endometrial bx. She denies vaginal discharge other than blood. She denies dizziness, chest pain, nausea. We were asked to admit the patient for further care. Consults Consult date: 07/22/19 Requesting physician: Jaziel Estrada Review of Systems Constitutional Constitutional: Reports chills, Reports fatigue, Reports fever(s) (Subjective) and Reports weakness Cardiovascular Cardiovascular: Reports rapid heart rate and Reports dyspnea Respiratory Respiratory: Reports dyspnea Gastrointestinal Gastrointestinal: Reports abdominal pain (Right>left lower quadrant), Denies melena and Denies change in bowel habits Genitourinary Genitourinary: Reports abnormal vaginal bleeding (For 2 days prior to endometrial biopsy on 07/19/2019), Denies genital lesions, Denies pelvic pain, Reports urinary incontinence (Patient has stress incontinence-worse since endometrial biopsy) and Reports vaginal discharge (Non-malodorous, yellow-brown) Musculoskeletal Musculoskeletal: Reports arthralgias Neurologic Neurologic: Reports weakness Endocrine Endocrine: Reports fatigue [facility] Social History Smoking/Tobacco Use Status: Former Tobacco Use Alcohol Intake: never Drug use: Never Do you feel safe at home: Yes Exam Const General: no acute distress and ill appearing (Sitting in semi-lopez's position on [facility]) acutely Nutritional Appearance: obese centrally obese Orientation: alert, awake and oriented x3 Resp Effort & Inspection: labored GI Inspection: large pannus Palpation: soft, no hepatosplenomegaly, no guarding, no masses and nontender Percussion: normal to percussion Auscultation: normal bowel sounds Rectal Exam - female: deferred General: bimanual renal exam normal bilaterally and bladder normal to palpation External Female Exam: external appearance normal, no tenderness externally, lesion of urethra and No tenderness of urethra Speculum Exam - Vagina: no foreign bodies and other (Small amount of hard stool palpable through the vaginal wall) Speculum Exam - Cervix: nontender and other (Cervix difficult to palpate-elevated vaginal vault) Bimanual Exam- Vagina & Uterus: normal bimanual exam, uterine size normal (Small mobile and nontender), bladder normal to palpation, No cervical tenderness and no cervical motion tenderness Bimanual Exam- Adnexa, other: no adnexal masses, adnexae non-tender and cystocele OB/External & Speculum: no foreign bodies Other: No blood in the vaginal vault on exam. Clear yellow urine on her adult diaper that was changed prior to the exam. Back/Spine/Pelvis Back: No no CVA tenderness Pelvis: no pain with anterior-posterior compression and no pain with lateral compression Coccyx: no tenderness Skin General skin exam: crusts (Dorsal surface left arm) and dry skin Extrem General: normal to inspection, full ROM, normal capillary refill and no clubbing, cyanosis or edema Psych Appearance: grossly normal Mental Status: mental status grossly normal Speech and Movement: speech and movement normal Mood: congruent mood Results Last Vital Signs Temp 97.7 F 07/22/19 11:20 Pulse 71 07/22/19 14:54 Resp 23 07/22/19 14:54 BP 85/51 L 07/22/19 14:54 Pulse Ox 92 L 07/22/19 14:54 Labs Result diagrams: 07/22/19 11:30 07/22/19 11:30 Labs: Laboratory Results - last 24 hr 07/22/19 07/22/19 07/22/19 11:30 11:30 11:30 WBC 7.66 RBC 5.84 H Hgb 17.4 H Hct 50.8 H MCV 87.0 MCH 29.8 MCHC 34.3 RDW 14.5 Plt Count 224 MPV 11.5 H Immature Gran % 0.3 Neutrophils % 70.3 Lymphocytes % 17.4 Monocytes % 11.9 Eosinophils % 0.0 Basophils % 0.1 Absolute Neutrophils 5.39 Absolute Lymphocytes 1.33 Absolute Monocytes 0.91 H Absolute Eosinophils 0.00 Absolute Basophils 0.01 Sodium 140 Potassium 3.3 L Chloride 97 L Carbon Dioxide 31.6 Anion Gap 11.4 H BUN 49 H Creatinine 2.07 H Estimated GFR/1.73 m2 23.81 Glucose 149 H Lactate Calcium 9.1 Magnesium 2.1 Total Bilirubin 2.3 H AST 51 H ALT 34 Alkaline Phosphatase 55 Troponin I 0.05 C-Reactive Protein NT-Pro-B Natriuret Pep 4273 H Total Protein 7.6 Albumin 3.3 L 07/22/19 07/22/19 14:10 14:25 WBC RBC Hgb Hct MCV MCH MCHC RDW Plt Count MPV Immature Gran % Neutrophils % Lymphocytes % Monocytes % Eosinophils % Basophils % Absolute Neutrophils Absolute Lymphocytes Absolute Monocytes Absolute Eosinophils Absolute Basophils Sodium Potassium Chloride Carbon Dioxide Anion Gap BUN Creatinine Estimated GFR/1.73 m2 Glucose Lactate 1.1 Calcium Magnesium Total Bilirubin AST ALT Alkaline Phosphatase Troponin I C-Reactive Protein 6.12 H NT-Pro-B Natriuret Pep Total Protein Albumin
[2019-07-22 15:05] LABS: Procalcitonin 0.8 ng/mL
[2019-07-22 15:08] LABS: Troponin I < 0.05 ng/Ml (<0.06)
[2019-07-22] MEDS: methylPREDNISolone SUCC 40 MG VIAL IVP ×2 (16:04→22:43)
[2019-07-22] MEDS: Pantoprazole 40 MG VIAL IVP (16:04)
[2019-07-22] MEDS: metroNIDAZOLE 500 MG/100 ML BAG 100 MG IVPB ×2 (16:05→22:44)
[2019-07-22] MEDS: Apixaban 5 MG TAB PO (20:10)
[2019-07-22 20:59] LABS: Bilirubin Negative (Negative); Blood Large (Negative); Clarity Sl Cloudy (Clear); Glucose Negative (Negative); Ketones Negative (Negative); Leukocyte Esterase Negative (Negative); Nitrite Negative (Negative); Urobilinogen 0.2 EU/dL (Up TO 0.2); pH 5.5 (5-8)
[2019-07-22 21:10] LABS: Epithelial Cells Few HPF (Negative); RBC >50 HPF (0-2)
[2019-07-22 21:11] LABS: Bacteria Few HPF (Negative); C & S Indicated? C&S Done As Ordered; Crystals Few Uric Acid HPF (Negative); Mucus Negative (Negative); Other Cells Few Transitional (Negative)
[2019-07-23] VITALS (130 sets, daily range): BP systolic 103–150; BP diastolic 71–114; PULSE 48–149; RESP 16–43; TEMP 36–36.8; O2SAT 90–99
[2019-07-23] MEDS: Insulin Aspart 300 UNITS/3 ML PEN SC ×5 (00:25→22:18)
[2019-07-23] MEDS: PIPERACILLIN/TAZO 3.375 GM in Normal Saline 50 ML IVPB ×4 (01:58→21:16)
[2019-07-23] MEDS: Normal Saline 1,000 ML 125 ML IV (02:34)
[2019-07-23] MEDS: Aspirin 325 MG TAB PO (06:01)
[2019-07-23] MEDS: metroNIDAZOLE 500 MG/100 ML BAG 100 MG IVPB ×3 (06:01→22:14)
[2019-07-23] MEDS: methylPREDNISolone SUCC 40 MG VIAL IVP ×3 (06:02→21:26)
[2019-07-23 06:40] LABS: Abs Immature Grans 0.01 k/cumm (0.0-0.09); Absolute Lymphocyte Count 1.02 k/cumm (1.2-3.4); Absolute Monocyte Count 0.26 k/cumm (0.11-0.7); Absolute Neutrophil Count 4.44 k/cumm (1.2-6.7); HCT 46.1 % (36.0-46.0); HGB 15.7 g/dL (12.0-15.5); Immature Grans % 0.2 %; Lymphocytes % 17.8; Mean Corp. HGB Concentration 34.1 g/dL (32.0-36.0); Mean Corpuscular Hemoglobin 30.1 pg (27.0-33.0); Mean Corpuscular Volume 88.5 fL (80-95); Mean Platelet Volume 11.6 fL (8.0-11.0); Monocytes % 4.5; Neutrophils % 77.5; Platelet Count 193 x1000/uL (130-400); RBC 5.21 m/cumm (4.00-5.20); RBC Distribution Width 14.5 % (11.7-14.6); White Blood Cell Count 5.73 k/cumm (4.4-10.8)
[2019-07-23 06:42] LABS: Lactate 1.9 mmol/L (0.6-1.4)
[2019-07-23 07:08] LABS: Anion Gap 5.1 mmol/L (3-11); BUN 47 mg/dL (7-18); C-Reactive Protein 4.34 mg/dL (0.0-0.3); CO2 27.9 mmol/L (21.0-32.0); CREATININE 1.78 mg/dL (0.55-1.02); Calcium 7.9 mg/dL (8.5-10.1); Chloride 101 mmol/L (98-107); Estimated GFR 28.34 (mL/min/1.73m2); Glucose 163 mg/dL (74-106); Potassium 3.6 mmol/L (3.5-5.1); Sodium 134 mmol/L (136-145); TSH (W/Ref FT4) 0.33 uIU/mL (0.36-3.74)
[2019-07-23 07:34] LABS: Procalcitonin 0.5 ng/mL
--- NOTE | 2019-07-23 07:59 | DI.US_ITS ---
EXAM: US PELVIS AND TRANSVAGINAL CLINICAL HISTORY: HISTORY OF POSTMENOPAUSAL BLEEDING TECHNIQUE: Ultrasound performed using standard protocol. Transabdominal and transvaginal exams wer e performed. FINDINGS: The transabdominal images are limited by suboptimal bladder distention. The uterus measures 7.9 x 3. 6 x 4.4 cm. No fibroids are seen. The endometrial stripe is markedly thickened, measuring up to 1.9 cm. The endometrium is also quite heterogeneous with multiple cystic components. The ovaries were not visualized. There is a cyst on the right kidney measuring 7 cm in greatest dimension. There is no hydronephrosis. IMPRESSION: Markedly thickened heterogeneous endometrium.
[2019-07-23 08:21] LABS: FREE T4 1.25 ng/dL (0.76-1.46)
[2019-07-23] MEDS: Apixaban 5 MG TAB PO ×2 (08:50→21:14)
[2019-07-23] MEDS: Cholecalciferol (Vitamin D3) 1,000 UNIT TAB 1000 UNITS PO (08:50)
[2019-07-23] MEDS: Calcium Carbonate 1.25 GM TAB 2.5 GM PO (08:51)
[2019-07-23 09:13] LABS: ALT 26 U/L (14-59); AST 35 U/L (15-37); Albumin 2.6 g/dL (3.4-5.0); Alkaline Phosphatase 43 U/L (46-116); Bilirubin, Direct 0.54 mg/dL (0.00-0.20); Bilirubin, Total 1.5 mg/dL (0.2-1.0); Total Protein 6.1 g/dL (6.4-8.2)
--- NOTE | 2019-07-23 09:45 | DI.RAD_ITS ---
EXAM: XR PORTABLE CHEST AP INDICATION: follow up suspected pneumonia. COMPARISON: XR PORTABLE CHEST AP from 07/22/2019 TECHNIQUE: 2D digital imaging was performed. FINDINGS: The heart size is normal. Leads overlie the chest. The lungs appear clear. No infiltrate or effus ion is seen. IMPRESSION: No acute abnormality.
--- NOTE | 2019-07-23 10:27 | INITIAL_ITS ---
- If Service Date Differs Date of service: 07/23/19 Time of Service: 10:28 Care Management Initial Assess REASON FOR HOSPITALIZATION:: septic shock PAST MEDICAL HISTORY/PAST SURGICAL HISTORY:: Medical History: atrial fibrillation (Chronic 04/29/14). BMI 33.0-33.9,adult (Chronic). CAD (coronary artery disease) (Chronic). a. drug eluting stents. Elevated hematocrit (Chronic). Elevated hemoglobin (Chronic). H/O hypercalcemia (Chronic). H/O hyperparathyroidism (Chronic). a. Surgery to remove adenomas. Hypertension (Chronic). Hypertensive CKD (chronic kidney disease) (Chronic). A. probably stage 1 or 2. B. baseline creatinine 1.1 to 1.2. Impaired fasting glucose (Chronic). Metabolic syndrome (Chronic). a. triglycerides greater than 300 and HDL less than 30. Obesity (Chronic). Osteoarthritis (Chronic). Post- menopausal bleeding (Acute). Tobacco abuse (Resolved). a. age [age] with eight year hiatus in there somewhere, appx 1/2 to 1 PPD. Surgical History: H/O benign neoplasm (Resolved). resected. H/O parathyroidectomy (Chronic). s/p 2 stents. Hx of cardiac cath (Chronic) PREVIOUS FUNCTIONAL STATUS/SOCIAL/FAMILY SUPPORTS:: Edwige lives alone in a single family home in [place]. It is on 2 levels with the bedrooms being upstairs. She has been for 27 years. Edwige worked for [employer] for many years but is now retired. 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 Edwige has 2 children and 3 grandchildren who live locally and are very supportive.Edwige also identifies that her neighbors are very helpful. CURRENT FUNCTIONAL STATUS:: Edwige was sitting up in bed when CM met with her. She was pleasant, smiling and engaged readily in conversation. Edwige states that she has been doing well at home until last week when she became ill. She does not currently receive any services in the community and does not anticipate needing any help at discharge. 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 ADVANCE DIRECTIVES:: None on file but states that she does have advanced directives. Has patient been provided with information about the portal?: Yes Did the patient sign up for the portal?: No CODE STATUS:: DNR/DNI INSURANCE COVERAGE / FINANCIAL ISSUES:: Medicare. [employer] CURRENT HOME/COMMUNITY SERVICES/EQUIPMENT:: None currently PRIMARY CARE PHYSICIAN:: Esther Verma POTENTIAL DISCHARGE NEEDS:: Follow up with PCP and discharge plan of care PATIENT/FAMILY EDUCATION NEEDS:: Discharge plan, limitations, follow up and Ask Me Three ANTICIPATED BARRIERS TO DISCHARGE:: none TRANSPORTATION:: via private vehicle with friends/family when ready PLAN:: Edwige will likely discharge home with no new services. She will transport with family anfd follow up with her PCP and discharge plan of care. CM will continue to support patient, family and discharge plans.
--- NOTE | 2019-07-23 11:17 | PHARADMIT ---
Addendum entered by Christina Roman 07/26/19 14:03: Pharmacy Note Subjective Can transfer to [facility], septic shock resolved Objective VS ok w/HR 60-80's, Afebrile, no weight today, I/O negative Stool heme negative, BG 273 Micro: sputum, urine, blood all negative Procalcitonin down 0.1, lactate down 1.8 yesterday K+ 3.0 (KCL 40meq po Q8h x 3 doses), Mag 1.9 Assessment Diltiazem infusion dc'd...was converted to oral for chronic A-fib Lasix infusion dc'd, changed to oral Daily full dose ASA, Apixiban Is on Prednisone 40mg po BID rec'd 1x dose of 15 units Lantus Flagyl dc'd, Zosyn continues Plan Planning for discharge Tuesday, need daily weights, watch for Prednisone taper Addendum entered by Shilpi Wu 07/25/19 15:28: Pharmacy Note Subjective improving both in cough/breathing and afib per morning report Objective BP-159/88 other VS okay K+3.3 SCr-1.65(down) mag-1.7 wbc-12.9(up) CRP-1.71(down) procalcitonin-0.2 Assessment -IV furosemide and diltiazem continue -pt trialed on PO dose of diltiazem, but this was discontinued. watch for another possible trial tomorrow? -methylprednisolone changed to prednisone -potassium and magnesium replacement given -X1 dose of insulin glargine given -metronidazole and zosyn continue (day4). progress noted plan was to stop metronidazole today, has not been discontinued yet -blood cultures no growth @ 48 hours Plan continue to watch VS, labs and for med changes (narrowing of abx/changing to PO) Original Note: Admission Pharmacy Clinical Review septic shock, rapid afib, acute hypoxia, endometrtis? Code Status DNR/DNI Current Weight 86.3 kg Renally Cleared and Narrow Therapeutic Index Meds Crcl ~31.5 mL/min using adjusted body weight current meds okay QTc Value / Action Taken QTc 452 BP Control, Fever BP 129/71 afebrile Electrolytes reviewed Na 134 DVT Prophylaxis pt is on apixaban Opiate Usage / Scheduled Bowel Regimen Ordered no/prn Plt/SCr for Heparin / Enoxaparin plt 193 SCr 1.78 INR for Warfarin n/a H/H stable, WBC/Bands h/h 15.7/46.1 WBC 5.73 Antibiotic appropriateness metronidazole, zosyn, and vanco for pneumonia and possible endometritis Cultures and Sensitivities blood urine and sputum cultures pending Surgical ABX d/c within 24 hr n/a DM control / Insulin Dosing Bg 163 sliding scale aspart Heart Failure (Check EF%) (MACARIO's, B-Block, Diuretics) none IV to PO Switch n/a Home Meds Reviewed aspirin may enhance the adverse/toxic effect (bleeding risk) of apixaban Home Meds Not Ordered HCTZ, lisinopril, metoprolol (all held due to hypotension; watch BP and for restart); metformin (has sliding scale aspart ordered) Comments doing much better per morning report pelvic US scheduled for today; watch for change in abx tx if this is ruled out watch for micro results procalcitonin and CRP improving
--- NOTE | 2019-07-23 11:30 | W.PM.PROGNOT ---
Date of Service Date of service: 07/23/19 Time of Service: 11:30 Assessment and Plan Assessment and plan (1) Septic shock: Status: Resolved Assessment and plan: Somewhat confusing presentation with no actual fever or leucocytosis - however, does clinically does have PNA (endometritis now thought less likely). BP's normalized. HR is somewhat better. CRP/procalcitonin are improving on empiric vancomycin, zosyn, and flagyl (day 2). Did not require pressors - fluid, antibiotic, and steroid responsive. I think at this point, the patient cannot tolerate any more IVF due to clinical CHF. D/c IVF. Monitor in ICU to ensure BP's can handle discontinuation of IVF. Await blood, sputum C&S. No evidence of UTI by UA. (2) Chronic atrial fibrillation with rapid ventricular response: Status: Acute Assessment and plan: As above - HR overall is better and seems to have responded to treatment of infection. Before restarting beta blockers (hopefully later today), I'd like to stop IVF and see if BP's can handle it. (3) Pneumonia: Status: Acute Assessment and plan: As above - clinically, I think the patient does have it, and it is causing bronchospasm. Treat with broad spectrum antibiotics, nebs, and IV steroids. (4) Endometritis: Status: Ruled-out Assessment and plan: [employer] REPAIR PERSON on board. Awaiting results of pelvic ultrasound. Continue current empiric antibiotics. (5) Acute respiratory failure with hypoxia: Status: Resolved (6) Moderate pulmonary arterial systolic hypertension: Status: Chronic Assessment and plan: At this time, appears fluid overloaded. D/c IVF. If BP's tolerate low dose PO lopressor, trial 1 dose of lasix (7) Acute kidney injury superimposed on chronic kidney disease: Status: Acute Assessment and plan: In setting of hypotension/sepsis. Improving. At this point, d/c IVF due to patient getting clinically fluid overloaded. Recheck Cr in am. (8) Hypokalemia: Status: Resolved Assessment and plan: recheck in am (9) DVT prophylaxis: Status: Acute Assessment and plan: On therapeutic eliquis (10) Discharge planning issues: Status: Acute Assessment and plan: DNR/DNI Keep in ICU. Subjective Subjective Interval history since last seen: Ms Davis feels a little better today. She is on room air. She cannot tolerate laying flat today and got short of breath getting up. Her cough is still productive of scant yellow sputum. Feels weak and lightheaded when tries to get up. Denies chest pain. Had nausea last night, but not today. Overnight, afebrile. However, reports two episodes of night sweats. BP's are better today - latest 129/71. HR varies between 80's and 130's (with activity). Remains in Afib. She did not require pressors overnight. Hungry, requests food. Exam Narrative Exam Narrative: General: Very pleasant middle-aged female, laying comfortably in bed at a 30 degree angle. On RA, no dyspnea/tachypnea noted. HEENT: EOMI, MMM Heart: irregularly irregular rhythm, no m/r/g Lungs: quiet expiratory wheezing, but also quiet rales at B bases Abdomen: soft, nontender, nondistended Extremities: no e/c/c BLE's, B feet warm, +1 pedal pulses Objective Objective Clinical Data: Abnormal lab results 07/22/19 07/22/19 07/22/19 Range/Units 11:30 11:30 11:30 RBC 5.84 H (4.00-5.20) m/cumm Hgb 17.4 H (12.0-15.5) g/dL Hct 50.8 H (36.0-46.0) % MPV 11.5 H (8.0-11.0) fL Absolute Lymphocytes (1.2-3.4) k/cumm Absolute Monocytes 0.91 H (0.11-0.7) k/cumm Sodium (136-145) mmol/L Potassium 3.3 L (3.5-5.1) mmol/L Chloride 97 L (98-107) mmol/L Anion Gap 11.4 H (3-11) mmol/L BUN 49 H (7-18) mg/dL Creatinine 2.07 H (0.55-1.02) mg/dL Glucose 149 H (74-106) mg/dL Lactate (0.6-1.4) mmol/L Calcium (8.5-10.1) mg/dL Total Bilirubin 2.3 H (0.2-1.0) mg/dL Conjugated Bilirubin (0.00-0.20) mg/dL AST 51 H (15-37) U/L Alkaline Phosphatase (46-116) U/L C-Reactive Protein (0.0-0.3) mg/dL NT-Pro-B Natriuret Pep 4273 H (<300) pg/mL Total Protein (6.4-8.2) g/dL Albumin 3.3 L (3.4-5.0) g/dL TSH (0.36-3.74) uIU/mL Urine Protein (Negative) mg/dL Urine Blood (Negative) Urine RBC (0-2) HPF 07/22/19 07/22/19 07/23/19 Range/Units 14:10 20:25 06:14 RBC (4.00-5.20) m/cumm Hgb (12.0-15.5) g/dL Hct (36.0-46.0) % MPV (8.0-11.0) fL Absolute Lymphocytes (1.2-3.4) k/cumm Absolute Monocytes (0.11-0.7) k/cumm Sodium 134 L (136-145) mmol/L Potassium (3.5-5.1) mmol/L Chloride (98-107) mmol/L Anion Gap (3-11) mmol/L BUN 47 H (7-18) mg/dL Creatinine 1.78 H (0.55-1.02) mg/dL Glucose 163 H (74-106) mg/dL Lactate (0.6-1.4) mmol/L Calcium 7.9 L (8.5-10.1) mg/dL Total Bilirubin 1.5 H (0.2-1.0) mg/dL Conjugated Bilirubin 0.54 H (0.00-0.20) mg/dL AST (15-37) U/L Alkaline Phosphatase 43 L (46-116) U/L C-Reactive Protein 6.12 H 4.34 H (0.0-0.3) mg/dL NT-Pro-B Natriuret Pep (<300) pg/mL Total Protein 6.1 L (6.4-8.2) g/dL Albumin 2.6 L (3.4-5.0) g/dL TSH 0.33 L (0.36-3.74) uIU/mL Urine Protein 30 H (Negative) mg/dL Urine Blood Large H (Negative) Urine RBC >50 H (0-2) HPF 07/23/19 07/23/19 Range/Units 06:14 06:14 RBC 5.21 H (4.00-5.20) m/cumm Hgb 15.7 H (12.0-15.5) g/dL Hct 46.1 H (36.0-46.0) % MPV 11.6 H (8.0-11.0) fL Absolute Lymphocytes 1.02 L (1.2-3.4) k/cumm Absolute Monocytes (0.11-0.7) k/cumm Sodium (136-145) mmol/L Potassium (3.5-5.1) mmol/L Chloride (98-107) mmol/L Anion Gap (3-11) mmol/L BUN (7-18) mg/dL Creatinine (0.55-1.02) mg/dL Glucose (74-106) mg/dL Lactate 1.9 H (0.6-1.4) mmol/L Calcium (8.5-10.1) mg/dL Total Bilirubin (0.2-1.0) mg/dL Conjugated Bilirubin (0.00-0.20) mg/dL AST (15-37) U/L Alkaline Phosphatase (46-116) U/L C-Reactive Protein (0.0-0.3) mg/dL NT-Pro-B Natriuret Pep (<300) pg/mL Total Protein (6.4-8.2) g/dL Albumin (3.4-5.0) g/dL TSH (0.36-3.74) uIU/mL Urine Protein (Negative) mg/dL Urine Blood (Negative) Urine RBC (0-2) HPF Vital Signs Temperature 36.5 C 07/23/19 10:12 Temperature Source Temporal Artery Scan 07/23/19 10:12 Pulse 98 H 07/23/19 10:12 Pulse 104 H 07/23/19 10:11 Respiratory Rate 20 07/23/19 10:11 Respiratory Effort 07/23/19 07:45 Respiratory Depth Normal 07/23/19 07:45 Respiratory Pattern Normal 07/23/19 07:45 Blood Pressure 129/71 07/23/19 10:12 Blood Pressure Mean 80 07/23/19 10:11 Blood Pressure Position Supine 07/23/19 00:00 Pulse Oximetry 96 07/23/19 10:12 Oxygen Delivery Method Room Air 07/23/19 10:12 Oxygen Flow Rate 0 07/23/19 10:12 Pain Level 0 07/23/19 07:45 Intake & Output 07/22/19 07/22/19 07/23/19 11:59 23:59 11:59 Intake Total 10 / 3453.750 3443.750 / 3453.750 306.25 / 306.25 Output Total 650 / 650 825 / 825 Balance 10 / 2803.750 2793.750 / 2803.750 -518.75 / -518.75 Weight 86.183 kg 86.183 kg 86.3 kg Intake: IV 10 / 3453.750 3443.750 / 3453.750 306.25 / 306.25 Output: Urine 650 / 650 825 / 825 Other: Urine Color Light Triny Dark Triny Urine Appearance Cloudy Cloudy Urine Odor Normal Comment Urine mixed with stool Voiding Methods Bedside Commode Diaper Laboratory Results WBC 5.73 k/cumm (4.4-10.8) 07/23/19 06:14 RBC 5.21 m/cumm (4.00-5.20) H 07/23/19 06:14 Hgb 15.7 g/dL (12.0-15.5) H 07/23/19 06:14 Hct 46.1 % (36.0-46.0) H 07/23/19 06:14 MCV 88.5 fL (80-95) 07/23/19 06:14 MCH 30.1 pg (27.0-33.0) 07/23/19 06:14 MCHC 34.1 g/dL (32.0-36.0) 07/23/19 06:14 RDW 14.5 % (11.7-14.6) 07/23/19 06:14 Plt Count 193 x1000/uL (130-400) 07/23/19 06:14 MPV 11.6 fL (8.0-11.0) H 07/23/19 06:14 Immature Gran % 0.2 % 07/23/19 06:14 Neutrophils % 77.5 07/23/19 06:14 Lymphocytes % 17.8 07/23/19 06:14 Monocytes % 4.5 07/23/19 06:14 Eosinophils % 0.0 07/23/19 06:14 Basophils % 0.0 07/23/19 06:14 Absolute Neutrophils 4.44 k/cumm (1.2-6.7) 07/23/19 06:14 Absolute Lymphocytes 1.02 k/cumm (1.2-3.4) L 07/23/19 06:14 Absolute Monocytes 0.26 k/cumm (0.11-0.7) 07/23/19 06:14 Absolute Eosinophils 0.00 k/cumm (0.0-0.7) 07/23/19 06:14 Absolute Basophils 0.00 k/cumm (0.0-0.2) 07/23/19 06:14 Sodium 134 mmol/L (136-145) L 07/23/19 06:14 Potassium 3.6 mmol/L (3.5-5.1) 07/23/19 06:14 Chloride 101 mmol/L (98-107) 07/23/19 06:14 Carbon Dioxide 27.9 mmol/L (21.0-32.0) 07/23/19 06:14 Anion Gap 5.1 mmol/L (3-11) 07/23/19 06:14 BUN 47 mg/dL (7-18) H 07/23/19 06:14 Creatinine 1.78 mg/dL (0.55-1.02) H 07/23/19 06:14 Estimated GFR/1.73 m2 28.34 (mL/min/1.73m2) 07/23/19 06:14 Glucose 163 mg/dL (74-106) H 07/23/19 06:14 Lactate 1.9 mmol/L (0.6-1.4) H 07/23/19 06:14 Calcium 7.9 mg/dL (8.5-10.1) L 07/23/19 06:14 Magnesium 2.0 mg/dL (1.8-2.4) 07/23/19 06:14 Total Bilirubin 1.5 mg/dL (0.2-1.0) H 07/23/19 06:14 Conjugated Bilirubin 0.54 mg/dL (0.00-0.20) H 07/23/19 06:14 AST 35 U/L (15-37) 07/23/19 06:14 ALT 26 U/L (14-59) 07/23/19 06:14 Alkaline Phosphatase 43 U/L (46-116) L 07/23/19 06:14 Troponin I < 0.05 ng/Ml (<0.06) 07/22/19 14:25 C-Reactive Protein 4.34 mg/dL (0.0-0.3) H 07/23/19 06:14 NT-Pro-B Natriuret Pep 4273 pg/mL (<300) H 07/22/19 11:30 Total Protein 6.1 g/dL (6.4-8.2) L 07/23/19 06:14 Albumin 2.6 g/dL (3.4-5.0) L 07/23/19 06:14 Procalcitonin 0.5 ng/mL 07/23/19 06:14 TSH 0.33 uIU/mL (0.36-3.74) L 07/23/19 06:14 Free T4 1.25 ng/dL (0.76-1.46) 07/23/19 06:14 Urine Color Yellow (Yellow) 07/22/19 20:25 Urine Clarity Sl cloudy (Clear) 07/22/19 20:25 Urine pH 5.5 (5-8) 07/22/19 20:25 Ur Specific [place] 1.020 (1.005-1.025) 07/22/19 20:25 Urine Protein 30 mg/dL (Negative) H 07/22/19 20:25 Urine Ketones Negative mg/dL (Negative) 07/22/19 20:25 Urine Blood Large (Negative) H 07/22/19 20:25 Urine Nitrite Negative (Negative) 07/22/19 20:25 Urine Bilirubin Negative (Negative) 07/22/19 20:25 Urine Urobilinogen 0.2 EU/dL (Up TO 0.2) 07/22/19 20:25 Ur Leukocyte Esterase Negative (Negative) 07/22/19 20:25 Urine RBC >50 HPF (0-2) H 07/22/19 20:25 Urine WBC 5-10 HPF (0-5) 07/22/19 20:25 Ur Epithelial Cells Few HPF (Negative) 07/22/19 20:25 Urine Crystals Few uric acid HPF (Negative) 07/22/19 20:25 Urine Bacteria Few HPF (Negative) 07/22/19 20:25 Urine Mucus Negative (Negative) 07/22/19 20:25 Urine Other Few transitional (Negative) 07/22/19 20:25 Ur Culture Indicated? C&s done as ordered 07/22/19 20:25 Urine Glucose Negative mg/dL (Negative) 07/22/19 20:25
[2019-07-23 12:01] LABS: Lactate 1.7 mmol/L (0.6-1.4)
[2019-07-23 12:21] LABS: Troponin I < 0.05 ng/Ml (<0.06)
[2019-07-23] MEDS: Metoprolol 12.5 MG TAB PO (13:19)
[2019-07-23] MEDS: Pantoprazole 40 MG VIAL IVP (13:20)
[2019-07-23] MEDS: Furosemide 20 MG/2 ML VIAL 10 MG IVP (14:40)
--- NOTE | 2019-07-23 15:27 | W.NUTCONSULT ---
Date of service: 07/23/19 Time of Service: 15:27 Nutritional Consult ASSESSMENT: 68 year old female admitted with hypokalemia, CHANTE, PNA, spetic shock, endometritis?. Following CHO diet with excellent intake. DM consult pending. BMI indicates class 1 obesity. Not considered at nutritional risk at this time. MONITORING AND EVALUATION: po intake and weight trends Time Spent in Nutritional Counseling and Treatment: 0 time spent face to face
[2019-07-23] MEDS: VANCOMYCIN 1,000 MG in Normal Saline 250 ML 166.6666 MG IVPB (15:48)
[2019-07-23] MEDS: Metoprolol 25 MG TAB PO (21:14)
[2019-07-24] VITALS (60 sets, daily range): BP systolic 108–160; BP diastolic 54–106; PULSE 47–144; RESP 15–31; TEMP 35.8–36.8; O2SAT 92–97
[2019-07-24] MEDS: PIPERACILLIN/TAZO 3.375 GM in Normal Saline 50 ML IVPB ×4 (03:00→20:43)
[2019-07-24] MEDS: Metoprolol 25 MG TAB PO ×2 (03:12→11:09)
[2019-07-24] MEDS: methylPREDNISolone SUCC 40 MG VIAL IVP ×3 (06:00→22:06)
[2019-07-24] MEDS: Aspirin 325 MG TAB PO (06:00)
[2019-07-24 06:49] LABS: Abs Immature Grans 0.05 k/cumm (0.0-0.09); Absolute Basophil Count 0.02 k/cumm (0.0-0.2); Absolute Lymphocyte Count 1.17 k/cumm (1.2-3.4); Absolute Monocyte Count 0.84 k/cumm (0.11-0.7); Absolute Neutrophil Count 9.74 k/cumm (1.2-6.7); Basophils % 0.2; HCT 42.5 % (36.0-46.0); HGB 14.7 g/dL (12.0-15.5); Immature Grans % 0.4 %; Lymphocytes % 9.9; Mean Corp. HGB Concentration 34.6 g/dL (32.0-36.0); Mean Corpuscular Volume 86.7 fL (80-95); Mean Platelet Volume 11.3 fL (8.0-11.0); Monocytes % 7.1; Neutrophils % 82.4; Platelet Count 218 x1000/uL (130-400); RBC Distribution Width 14.1 % (11.7-14.6); White Blood Cell Count 11.82 k/cumm (4.4-10.8)
[2019-07-24 07:00] LABS: Lactate 2.2 mmol/L (0.6-1.4)
[2019-07-24 07:06] LABS: ALT 31 U/L (14-59); AST 44 U/L (15-37); Albumin 2.8 g/dL (3.4-5.0); Alkaline Phosphatase 56 U/L (46-116); Anion Gap 12.2 mmol/L (3-11); BUN 50 mg/dL (7-18); Bilirubin, Total 1.2 mg/dL (0.2-1.0); CO2 25.8 mmol/L (21.0-32.0); Chloride 104 mmol/L (98-107); Estimated GFR 27.98 (mL/min/1.73m2); Glucose 254 mg/dL (74-106); Magnesium 1.9 mg/dL (1.8-2.4); Potassium 3.2 mmol/L (3.5-5.1); Sodium 142 mmol/L (136-145); Total Protein 6.3 g/dL (6.4-8.2)
[2019-07-24] MEDS: metroNIDAZOLE 500 MG/100 ML BAG 100 MG IVPB ×3 (07:20→22:07)
[2019-07-24] MEDS: Insulin Aspart 300 UNITS/3 ML PEN SC ×4 (07:56→22:07)
[2019-07-24] MEDS: Calcium Carbonate 1.25 GM TAB 2.5 GM PO (07:56)
[2019-07-24] MEDS: Apixaban 5 MG TAB PO ×2 (07:56→20:43)
[2019-07-24] MEDS: Cholecalciferol (Vitamin D3) 1,000 UNIT TAB 1000 UNITS PO (07:56)
[2019-07-24 08:10] LABS: Procalcitonin 0.2 ng/mL
--- NOTE | 2019-07-24 08:19 | W.PM.PROGNOT ---
Date of Service Date of service: 07/24/19 Time of Service: 08:19 Assessment and Plan Assessment and plan (1) Septic shock: Status: Resolved Assessment and plan: Somewhat confusing presentation with no actual fever or leucocytosis, but has pneumonia and CRP/procalcitonin reflect that. Endometritis ruled out, per SUPERVISOR LENS GENERATING. BP's normalized. HR still rapid. CRP/procalcitonin are improving on empiric vancomycin, zosyn, and flagyl (day 3). Blood cultures with NGTD. Sputum C&S with normal cesar. Urine C&S with mixed gram positive cesar. Did not require pressors - fluid, antibiotic, and steroid responsive. Likely ok to d/c vancomycin - will trial. Plan is to stop flagyl tomorrow. (2) Chronic atrial fibrillation with rapid ventricular response: Status: Acute Assessment and plan: Switch to cardizem gtt. Monitor in the ICU. (3) Pneumonia: Status: Acute Assessment and plan: Vs acute bacterial bronchitis, as repeat CXR is still negative. Deescalate antibiotics - d/c vancomycin. Continue zosyn/flagyl today. Start to taper steroids. (4) Endometritis: Status: Ruled-out Assessment and plan: SU[employer] GENERATING on board. On empiric flagyl, which we are planning to d/c tomorrow. US pelvic shows markedly thickened heterogenous endometrium. Uterine ca is suspected. Awaiting pathology. (5) Acute respiratory failure with hypoxia: Status: Resolved Assessment and plan: Due to PNA - as above (6) Moderate pulmonary arterial systolic hypertension: Status: Chronic Assessment and plan: At this time, appears fluid overloaded. Start lasix gtt. (7) Acute kidney injury superimposed on chronic kidney disease: Status: Acute Assessment and plan: In setting of hypotension/sepsis. Plateaued, but not at baseline - obtaining US abdomen to ensure there is no hydronephrosis/kidney stone. (8) Hypokalemia: Status: Acute Assessment and plan: Replete (9) DVT prophylaxis: Status: Acute Assessment and plan: On therapeutic eliquis (10) Discharge planning issues: Status: Acute Assessment and plan: DNR/DNI Keep in ICU. Subjective Subjective Interval history since last seen: Afebrile. Denies dizziness, does not think that the breathing is better today, denies n/v. HR still not rate controlled - 88 - 110's resting, 130's-161 with activity (not sustained). ALBARADO. Seen by cardiology - recommended diuresis and changing to calcium channel meryl. Exam Narrative Exam Narrative: General: Very pleasant middle-aged female, laying comfortably in bed at a 30 degree angle. Not wearing oxygen. HEENT: EOMI, MMM Heart: irregularly irregular rhythm, no m/r/g Lungs: quiet expiratory wheezing, sounds wet Abdomen: soft, nontender, nondistended Extremities: no e/c/c BLE's, B feet warm, +1 pedal pulses Objective Objective Clinical Data: Abnormal lab results 07/23/19 07/23/19 07/24/19 Range/Units 06:14 11:53 06:30 WBC (4.4-10.8) k/cumm MPV (8.0-11.0) fL Absolute Neutrophils (1.2-6.7) k/cumm Absolute Lymphocytes (1.2-3.4) k/cumm Absolute Monocytes (0.11-0.7) k/cumm Sodium 134 L (136-145) mmol/L Potassium 3.2 L (3.5-5.1) mmol/L Anion Gap 12.2 H (3-11) mmol/L BUN 47 H 50 H (7-18) mg/dL Creatinine 1.78 H 1.80 H (0.55-1.02) mg/dL Glucose 163 H 254 H (74-106) mg/dL Lactate 1.7 H (0.6-1.4) mmol/L Calcium 7.9 L 8.0 L (8.5-10.1) mg/dL Total Bilirubin 1.5 H 1.2 H (0.2-1.0) mg/dL Conjugated Bilirubin 0.54 H (0.00-0.20) mg/dL AST 44 H (15-37) U/L Alkaline Phosphatase 43 L (46-116) U/L C-Reactive Protein 4.34 H (0.0-0.3) mg/dL Total Protein 6.1 L 6.3 L (6.4-8.2) g/dL Albumin 2.6 L 2.8 L (3.4-5.0) g/dL TSH 0.33 L (0.36-3.74) uIU/mL 07/24/19 07/24/19 Range/Units 06:30 06:30 WBC 11.82 H D (4.4-10.8) k/cumm MPV 11.3 H (8.0-11.0) fL Absolute Neutrophils 9.74 H (1.2-6.7) k/cumm Absolute Lymphocytes 1.17 L (1.2-3.4) k/cumm Absolute Monocytes 0.84 H (0.11-0.7) k/cumm Sodium (136-145) mmol/L Potassium (3.5-5.1) mmol/L Anion Gap (3-11) mmol/L BUN (7-18) mg/dL Creatinine (0.55-1.02) mg/dL Glucose (74-106) mg/dL Lactate 2.2 H* (0.6-1.4) mmol/L Calcium (8.5-10.1) mg/dL Total Bilirubin (0.2-1.0) mg/dL Conjugated Bilirubin (0.00-0.20) mg/dL AST (15-37) U/L Alkaline Phosphatase (46-116) U/L C-Reactive Protein (0.0-0.3) mg/dL Total Protein (6.4-8.2) g/dL Albumin (3.4-5.0) g/dL TSH (0.36-3.74) uIU/mL Vital Signs Temperature 36.8 C 07/24/19 04:00 Temperature Source Tympanic 07/23/19 14:00 Pulse 106 H 07/24/19 04:00 Pulse 111 H 07/24/19 03:30 Respiratory Rate 20 07/24/19 04:00 Respiratory Effort 07/24/19 04:00 Respiratory Depth Normal 07/24/19 04:00 Respiratory Pattern Normal 07/24/19 04:00 Blood Pressure 126/79 07/24/19 04:00 Blood Pressure Mean 94 07/24/19 04:00 Blood Pressure Position Supine 07/23/19 00:00 Pulse Oximetry 93 L 07/24/19 04:00 Oxygen Delivery Method Room Air 07/23/19 15:55 Oxygen Flow Rate 0 07/23/19 15:55 Pain Level 0 07/24/19 04:00 Intake & Output 07/23/19 07/23/19 07/24/19 11:59 23:59 11:59 Intake Total 1056.25 / 1836.25 780 / 1836.25 50 / 50 Output Total 825 / 2225 1400 / 2225 175 / 175 Balance 231.25 / -388.75 -620 / -388.75 -125 / -125 Weight 86.3 kg Intake: IV 1056.25 / 1356.25 300 / 1356.25 50 / 50 Oral 480 / 480 Output: Urine 825 / 2125 1300 / 2125 150 / 150 Stool 100 / 100 25 / 25 Other: Urine Color Dark Triny Yellow Yellow Urine Appearance Cloudy Clear Urine Odor Normal None Stool Occult Blood Negative Negative Stool Size Small Stool Characteristics Liquid Liquid Voiding Methods Bedside Commode Diaper Laboratory Results WBC 11.82 k/cumm (4.4-10.8) H D 07/24/19 06:30 RBC 4.90 m/cumm (4.00-5.20) 07/24/19 06:30 Hgb 14.7 g/dL (12.0-15.5) 07/24/19 06:30 Hct 42.5 % (36.0-46.0) 07/24/19 06:30 MCV 86.7 fL (80-95) 07/24/19 06:30 MCH 30.0 pg (27.0-33.0) 07/24/19 06:30 MCHC 34.6 g/dL (32.0-36.0) 07/24/19 06:30 RDW 14.1 % (11.7-14.6) 07/24/19 06:30 Plt Count 218 x1000/uL (130-400) 07/24/19 06:30 MPV 11.3 fL (8.0-11.0) H 07/24/19 06:30 Immature Gran % 0.4 % 07/24/19 06:30 Neutrophils % 82.4 07/24/19 06:30 Lymphocytes % 9.9 07/24/19 06:30 Monocytes % 7.1 07/24/19 06:30 Eosinophils % 0.0 07/24/19 06:30 Basophils % 0.2 07/24/19 06:30 Absolute Neutrophils 9.74 k/cumm (1.2-6.7) H 07/24/19 06:30 Absolute Lymphocytes 1.17 k/cumm (1.2-3.4) L 07/24/19 06:30 Absolute Monocytes 0.84 k/cumm (0.11-0.7) H 07/24/19 06:30 Absolute Eosinophils 0.00 k/cumm (0.0-0.7) 07/24/19 06:30 Absolute Basophils 0.02 k/cumm (0.0-0.2) 07/24/19 06:30 Sodium 142 mmol/L (136-145) 07/24/19 06:30 Potassium 3.2 mmol/L (3.5-5.1) L 07/24/19 06:30 Chloride 104 mmol/L (98-107) 07/24/19 06:30 Carbon Dioxide 25.8 mmol/L (21.0-32.0) 07/24/19 06:30 Anion Gap 12.2 mmol/L (3-11) H 07/24/19 06:30 BUN 50 mg/dL (7-18) H 07/24/19 06:30 Creatinine 1.80 mg/dL (0.55-1.02) H 07/24/19 06:30 Estimated GFR/1.73 m2 27.98 (mL/min/1.73m2) 07/24/19 06:30 Glucose 254 mg/dL (74-106) H 07/24/19 06:30 Lactate 2.2 mmol/L (0.6-1.4) H* 07/24/19 06:30 Calcium 8.0 mg/dL (8.5-10.1) L 07/24/19 06:30 Magnesium 1.9 mg/dL (1.8-2.4) 07/24/19 06:30 Total Bilirubin 1.2 mg/dL (0.2-1.0) H 07/24/19 06:30 Conjugated Bilirubin 0.54 mg/dL (0.00-0.20) H 07/23/19 06:14 AST 44 U/L (15-37) H 07/24/19 06:30 ALT 31 U/L (14-59) 07/24/19 06:30 Alkaline Phosphatase 56 U/L (46-116) 07/24/19 06:30 Troponin I < 0.05 ng/Ml (<0.06) 07/23/19 11:53 C-Reactive Protein 4.34 mg/dL (0.0-0.3) H 07/23/19 06:14 NT-Pro-B Natriuret Pep 4273 pg/mL (<300) H 07/22/19 11:30 Total Protein 6.3 g/dL (6.4-8.2) L 07/24/19 06:30 Albumin 2.8 g/dL (3.4-5.0) L 07/24/19 06:30 Procalcitonin 0.2 ng/mL 07/24/19 06:30 TSH 0.33 uIU/mL (0.36-3.74) L 07/23/19 06:14 Free T4 1.25 ng/dL (0.76-1.46) 07/23/19 06:14 Urine Color Yellow (Yellow) 07/22/19 20: Urine Clarity Sl cloudy (Clear) 07/22/19 20: Urine pH 5.5 (5-8) 07/22/19 20: Ur Specific [place] 1.020 (1.005-1.025) 07/22/19 20:25 Urine Protein 30 mg/dL (Negative) H 07/22/19 20:25 Urine Ketones Negative mg/dL (Negative) 07/22/19 20: Urine Blood Large (Negative) H 07/22/19 20:25 Urine Nitrite Negative (Negative) 07/22/19 20: Urine Bilirubin Negative (Negative) 07/22/19 20: Urine Urobilinogen 0.2 EU/dL (Up TO 0.2) 07/22/19 20:25 Ur Leukocyte Esterase Negative (Negative) 07/22/19 20:25 Urine RBC >50 HPF (0-2) H 07/22/19 20:25 Urine WBC 5-10 HPF (0-5) 07/22/19 20:25 Ur Epithelial Cells Few HPF (Negative) 07/22/19 20: Urine Crystals Few uric acid HPF (Negative) 07/22/19 20:25 Urine Bacteria Few HPF (Negative) 07/22/19 20:25 Urine Mucus Negative (Negative) 07/22/19 20: Urine Other Few transitional (Negative) 07/22/19 20: Ur Culture Indicated? C&s done as ordered 01/05/20 20:25 Urine Glucose Negative mg/dL (Negative) 07/22/19 20:25
[2019-07-24] MEDS: Potassium Chloride 20 MEQ TABCR 40 MEQ PO (09:33)
[2019-07-24] MEDS: Normal Saline 1,000 ML 75 ML IV (09:33)
[2019-07-24] MEDS: Lactobacillus Acidophilus CAP 1 CAP PO (11:09)
--- NOTE | 2019-07-24 11:11 | PDOC.CMPRO ---
- If Service Date Differs Date of service: 07/24/19 Time of Service: 11:11 Care Management Progress Note S/O:Edwige was sitting up in bed chatting with her visitors when CM came to see her. She stated that she was feeling better and was going to have an ultrasound of her stomach at 1:30 pm. Edwige's heart rate remains elevated secondary to afib and is currently ranging from 99 to 144. She had a cardiology consult earlier today with recommendations for medication changes. CM will continue to follow. A: Edwige is a 68 year old woman admitted on 07/22/2019 with septic shock P: Edwige will likely discharge home with no new services. She will transport with family and follow up with her PCP and discharge plan of care. CM will continue to support patient, family and discharge plans.
--- NOTE | 2019-07-24 11:32 | CCONE_ITS ---
Date of service: 07/24/19 Time of Service: 11:33 Assessment and Plan Assessment and plan (1) Acute kidney injury superimposed on chronic kidney disease: Status: Acute Assessment and plan: 1. Rapid atrial fibrillation in the setting of sepsis. The first priority should be treating her infection though she appears to be stable right now. Her blood pressures are within normal limits with MAPs close to 100 despite having heart rate in the 120s or 130s. Given that the patient has some diastolic dysfunction she probably does not tolerate such high heart rates very well. At that in addition to all the IV fluids she received has made the patient slightly fluid overloaded as her lungs sound wet. I do not think the patient would benefit from cardioversion or aggressive rhythm control at this time as she is in the middle of an infection and has a potential diagnosis of cancer. With regard to rate control there is no good evidence that a calcium channel meryl is better than a beta-meryl or vice versa. The patient says that she has been a little fatigued on the beta-meryl but is unclear whether it is the beta-meryl or her atrial fibrillation is causing this. That said, I think it is reasonable for her to switch to a calcium channel meryl as that may have fewer side effects. While she is in the hospital seems like a good time to try this out. This can be titrated with a goal heart rate of 110bpm or fewer. She has plenty of blood pressure room to go. If the calcium channel meryl causes symptoms, there is no reason not to go back to the beta-meryl. The patient could also benefit from some gentle diuresis as she sounds as though her lungs are little bit white. Patient had a recent echocardiogram so I do not think any further imaging is necessary at this time. She should follow- up with cardiology as an outpatient to discuss her atrial fibrillation bill tment. Please contact cardiology with any further concerns. (2) Rapid atrial fibrillation: Status: Resolved History of Present Illness History of Present Illness Chief Complaint: Atrial fibrillation. Narrative: Ms Davis is a 68-year-old female with past medical history significant for paroxysmal atrial fibrillation, CAD status post stenting in 2018 who presented 2 days ago to the emergency room with palpitations. She arrived in the ED with a heart rate of 141. There she received metoprolol which dropped her blood pressure significantly. In response to that she was given IV fluids which initially helped her blood pressure but again her blood pressures dropped. She was admitted with concern for hypotension. In the ensuing ICU admission she was diagnosed with septic shock which was believed to be caused by pneumon ia. She was aggressively fluid resuscitated but this morning was felt to be slightly fluid overloaded. She continues to be in atrial fibrillation with heart rates ranging from 70s to 130s. During the entire time I was interviewing her her heart rates were between 110 and 130. She says since December she has been in chronic atrial fibrillation. That said, she does not think she has had any symptoms of the atrial fibrillation though she does admit to being more tired recently. She thinks that might have to do with a higher dose of metoprolol. She denies lightheadedness dizziness or shortness of breath. Per patient there is some concern about whether or not she has an [employer] cancer and that is currently being worked up. She is also wondering whether or not the infection in combination with potentially really bad news has made her stressed and thus increased her heart rate. Review of Systems All systems reviewed & are unremarkable except as noted in HPI and below PFSH Medical History Atrial fibrillation (Chronic 04/29/14) BMI 33.0-33.9,adult (Chronic) CAD (coronary artery disease) (Chronic) a. drug eluting stents Elevated hematocrit (Chronic) Elevated hemoglobin (Chronic) H/O hypercalcemia (Chronic) H/O hyperparathyroidism (Chronic) a. Surgery to remove adenomas Hypertension (Chronic) Hypertensive CKD (chronic kidney disease) (Chronic) A. probably stage 1 or 2 B. baseline creatinine 1.1 to 1.2 Impaired fasting glucose (Chronic) Metabolic syndrome (Chronic) a. triglycerides greater than 300 and HDL less than 30 Obesity (Chronic) Osteoarthritis (Chronic) Post-menopausal bleeding (Acute) Tobacco abuse (Resolved) a. age [age] with eight year hiatus in there somewhere, appx 1/2 to 1 PPD Surgical History H/O benign neoplasm (Resolved) resected H/O parathyroidectomy (Chronic) s/p 2 stents Hx of cardiac cath (Chronic) Family History Other Heart disease Social History Smoking/Tobacco Use Status: Former Tobacco Use Alcohol Intake: never Drug use: Never Do you feel safe at home: Yes Exam Const General: comfortable and no acute distress HENMT Head: normocephalic and atraumatic Eyes General: appearance normal, both eyes and all related structures Resp Effort & Inspection: normal respiratory effort Auscultation: rhonchi and wheezes Cardio Jugular venous pressure: no JVD Palpation: normal PMI Rate: tachycardic Rhythm: abnormal rhythm irregularly irregular Heart Sounds: S1 normal and S2 normal (No Murmurs, Rubs or Gallops) GI Palpation: soft Auscultation: normoactive bowel sounds Skin General skin exam: no rashes or lesions noted Extrem General: normal to inspection and no clubbing, cyanosis or edema Psych Appearance: grossly normal Results Last Vital Signs Temp 36.5 C 07/24/19 08:00 Pulse 90 07/24/19 09:47 Resp 23 07/24/19 09:47 BP 121/94 H 07/24/19 09:47 Pulse Ox 97 07/24/19 09:47 Labs Result diagrams: 07/24/19 06:30 07/24/19 06:30 Labs: Laboratory Results - last 24 hr 07/23/19 07/23/19 07/24/19 11:53 11:53 06:30 WBC RBC Hgb Hct MCV MCH MCHC RDW Plt Count MPV Immature Gran % Neutrophils % Lymphocytes % Monocytes % Eosinophils % Basophils % Absolute Neutrophils Absolute Lymphocytes Absolute Monocytes Absolute Eosinophils Absolute Basophils Sodium 142 Potassium 3.2 L Chloride 104 Carbon Dioxide 25.8 Anion Gap 12.2 H BUN 50 H Creatinine 1.80 H Estimated GFR/1.73 m2 27.98 Glucose 254 H Lactate 1.7 H Calcium 8.0 L Magnesium 1.9 Total Bilirubin 1.2 H AST 44 H ALT 31 Alkaline Phosphatase 56 Troponin I < 0.05 Total Protein 6.3 L Albumin 2.8 L Procalcitonin 07/24/19 07/24/19 06:30 06:30 WBC 11.82 H D RBC 4.90 Hgb 14.7 Hct 42.5 MCV 86.7 MCH 30.0 MCHC 34.6 RDW 14.1 Plt Count 218 MPV 11.3 H Immature Gran % 0.4 Neutrophils % 82.4 Lymphocytes % 9.9 Monocytes % 7.1 Eosinophils % 0.0 Basophils % 0.2 Absolute Neutrophils 9.74 H Absolute Lymphocytes 1.17 L Absolute Monocytes 0.84 H Absolute Eosinophils 0.00 Absolute Basophils 0.02 Sodium Potassium Chloride Carbon Dioxide Anion Gap BUN Creatinine Estimated GFR/1.73 m2 Glucose Lactate 2.2 H* Calcium Magnesium Total Bilirubin AST ALT Alkaline Phosphatase Troponin I Total Protein Albumin Procalcitonin 0.2
[2019-07-24 12:32] LABS: Lactate 2.6 mmol/L (0.6-1.4)
--- NOTE | 2019-07-24 12:50 | W.NUTRFU ---
Date of service: 07/24/19 Time of Service: 12:50 Nutritional Follow up NOTE: CDE has reviewed chart. no new recommendations at this time. Time Spent in Nutritional Counseling and Treatment: 0 time spent face to face
--- NOTE | 2019-07-24 13:38 | DI.US_ITS ---
EXAM: US ABDOMEN CLINICAL HISTORY: CHANTE, TRANSAMINITIS TECHNIQUE: Ultrasound performed using standard protocol. COMPARISON: No exams were available for comparison FINDINGS: Liver is enlarged and shows mildly increased echogenicity consistent with fatty infiltration. No foc al liver lesions or biliary dilatation is seen. The gallbladder is unremarkable, without evidence of stones or wall thickening. There is a 7.2 cm in maximal dimension cyst at the lower pole of the rig ht kidney. There is no hydronephrosis. Two nonobstructing stones were seen in the mid and lower rig ht kidney. There is a 4 millimeter nonobstructing stone in the inferior left kidney. There is no le ft hydronephrosis. Pancreas is grossly normal. The spleen is normal in size. The aorta is normal i n diameter. IMPRESSION: Mild fatty liver. Bilateral nonobstructing renal calculi. Right renal cyst.
[2019-07-24] MEDS: Pantoprazole 40 MG VIAL IVP (14:32)
[2019-07-24] MEDS: Normal Saline Flush 10 ML SYR IVP ×2 (14:33→15:28)
[2019-07-24 14:41] LABS: Bilirubin, Direct 0.44 mg/dL (0.00-0.20); C-Reactive Protein 2.39 mg/dL (0.0-0.3)
[2019-07-24] MEDS: dilTIAZem 125 MG in Normal Saline 100 ML IV (16:10)
[2019-07-25] VITALS (35 sets, daily range): BP systolic 102–175; BP diastolic 51–101; PULSE 59–138; RESP 15–31; TEMP 36–36.6; O2SAT 92–95
[2019-07-25] MEDS: PIPERACILLIN/TAZO 3.375 GM in Normal Saline 50 ML IVPB ×4 (02:09→21:32)
[2019-07-25] MEDS: dilTIAZem 125 MG in Normal Saline 100 ML IV (03:14)
[2019-07-25] MEDS: Aspirin 325 MG TAB PO (05:47)
[2019-07-25] MEDS: methylPREDNISolone SUCC 40 MG VIAL IVP (05:53)
[2019-07-25] MEDS: metroNIDAZOLE 500 MG/100 ML BAG 100 MG IVPB ×3 (05:54→22:27)
[2019-07-25 06:20] LABS: Lactate 1.8 mmol/L (0.6-1.4)
[2019-07-25 06:23] LABS: Abs Immature Grans 0.14 k/cumm (0.0-0.09); HGB 15.3 g/dL (12.0-15.5); Mean Corp. HGB Concentration 34.8 g/dL (32.0-36.0); Mean Corpuscular Hemoglobin 29.9 pg (27.0-33.0); Mean Corpuscular Volume 86.1 fL (80-95); Platelet Count 218 x1000/uL (130-400); RBC 5.11 m/cumm (4.00-5.20); RBC Distribution Width 14.1 % (11.7-14.6)
[2019-07-25 06:35] LABS: ALT 35 U/L (14-59); AST 29 U/L (15-37); Albumin 3.2 g/dL (3.4-5.0); Alkaline Phosphatase 50 U/L (46-116); Anion Gap 11.7 mmol/L (3-11); BUN 44 mg/dL (7-18); Bilirubin, Direct 0.37 mg/dL (0.00-0.20); Bilirubin, Total 1.3 mg/dL (0.2-1.0); C-Reactive Protein 1.71 mg/dL (0.0-0.3); CO2 29.3 mmol/L (21.0-32.0); CREATININE 1.65 mg/dL (0.55-1.02); Calcium 8.4 mg/dL (8.5-10.1); Chloride 101 mmol/L (98-107); Estimated GFR 30.94 (mL/min/1.73m2); Glucose 275 mg/dL (74-106); Magnesium 1.7 mg/dL (1.8-2.4); Potassium 3.3 mmol/L (3.5-5.1); Sodium 142 mmol/L (136-145); Total Protein 6.8 g/dL (6.4-8.2)
[2019-07-25 07:09] LABS: Procalcitonin 0.2 ng/mL
[2019-07-25 07:26] LABS: Absolute Lymphocyte Count 1.42 k/cumm (1.2-3.4); Absolute Monocyte Count 0.52 k/cumm (0.11-0.7); Absolute Neutrophil Count 10.84 k/cumm (1.2-6.7); Atypical Lymphocytes % 4
[2019-07-25 07:27] LABS: Diff Comment Manual Differential; RBC Morphology Normal
--- NOTE | 2019-07-25 07:27 | W.INDIABCONS ---
Date of service: 07/25/19 Time of Service: 07:27 Diabetes Inpatient Consult DESCRIPTION/ASSESSMENT: Appreciate diabetes consult for Edwige Davis who is hospitalized with pneumonia on steroids. A1c 6.6 BMI 33 Blood sugars 223-325 yesterday with sensitive insulin correction and today a decrease in prednisone by 1/2 to 40mg. Edwige is well known to outpatient diabetes program and has basic diabetes self management understanding. INTERVENTION: Will watch blood sugars for improvement with decrease in prednisone dose. Hyperglycemia may be temporary short term. An increase in insulin correction given the steroid dose and BMI may be beneficial at least to moderate correction, although correction is always chasing a high blood sugar. PLAN: Suggest increase in insulin correction to moderate if steroid dose remains at its current level for a few days Will follow blood sugars and f/u prior to discharge if possible. Time Spent in Nutritional Counseling and Treatment: 0 minutes face to face
--- NOTE | 2019-07-25 08:17 | PGE_ITS ---
Date of Service Date of service: 07/25/19 Time of Service: 08:17 Subjective Subjective Interval history since last seen: Diltiazem gtt @2.5-5, HR 90's. Lasix gtt @2.5/hr 3.3 Lb weight loss/2L diuresis. Feels better. Lungs sound diminshed. No pains. + BM Objective Objective Clinical Data: Abnormal lab results 07/24/19 07/24/19 07/25/19 Range/Units 06:30 12:24 06:10 WBC (4.4-10.8) k/cumm Absolute Neutrophils (1.2-6.7) k/cumm Potassium 3.3 L (3.5-5.1) mmol/L Anion Gap 11.7 H (3-11) mmol/L BUN 44 H (7-18) mg/dL Creatinine 1.65 H (0.55-1.02) mg/dL Glucose 275 H (74-106) mg/dL Lactate 2.6 H* (0.6-1.4) mmol/L Calcium 8.4 L (8.5-10.1) mg/dL Magnesium 1.7 L (1.8-2.4) mg/dL Total Bilirubin 1.3 H (0.2-1.0) mg/dL Conjugated Bilirubin 0.44 H 0.37 H (0.00-0.20) mg/dL C-Reactive Protein 2.39 H 1.71 H (0.0-0.3) mg/dL Albumin 3.2 L (3.4-5.0) g/dL 07/25/19 07/25/19 Range/Units 06:10 06:10 WBC 12.90 H (4.4-10.8) k/cumm Absolute Neutrophils 10.84 H (1.2-6.7) k/cumm Potassium (3.5-5.1) mmol/L Anion Gap (3-11) mmol/L BUN (7-18) mg/dL Creatinine (0.55-1.02) mg/dL Glucose (74-106) mg/dL Lactate 1.8 H (0.6-1.4) mmol/L Calcium (8.5-10.1) mg/dL Magnesium (1.8-2.4) mg/dL Total Bilirubin (0.2-1.0) mg/dL Conjugated Bilirubin (0.00-0.20) mg/dL C-Reactive Protein (0.0-0.3) mg/dL Albumin (3.4-5.0) g/dL Vital Signs Temperature 36.6 C 07/25/19 04:04 Temperature Source Tympanic 07/25/19 04:04 Pulse 92 H 07/25/19 04:04 Pulse 140 H 07/24/19 23:00 Respiratory Rate 31 H 07/25/19 04:04 Respiratory Effort 07/25/19 04:04 Respiratory Depth Normal 07/25/19 04:04 Respiratory Pattern Normal 07/25/19 04:04 Blood Pressure 126/79 07/25/19 04:04 Blood Pressure Mean 94 07/25/19 04:04 Blood Pressure Position Sitting 07/25/19 04:04 Pulse Oximetry 95 07/25/19 04:04 Oxygen Delivery Method Room Air 07/24/19 13:27 Oxygen Flow Rate 0 07/24/19 13:27 Pain Level 0 07/25/19 04:04 Comment 07/23/19 16:00 Intake & Output 07/24/19 07/24/19 07/25/19 11:59 23:59 11:59 Intake Total 440 / 1570.75 1030.75 / 1570.75 444.908 / 444.908 Output Total 325 / 2075 1750 / 2075 1100 / 1100 Balance 115 / -504.25 -719.25 / -504.25 -655.092 / -655.092 Weight 87.7 kg 86.2 kg Intake: IV 200 / 850.75 550.75 / 850.75 204.908 / 204.908 Oral 240 / 720 480 / 720 240 / 240 Output: Urine 150 / 1850 1700 / 1850 1100 / 1100 Stool 175 / 225 50 / 225 Other: Urine Color Yellow Yellow Yellow Urine Appearance Clear Clear Urine Odor Normal Comment mixed with a BM mixed with stool Stool Occult Blood Negative Negative Stool Size Small Moderate Stool Characteristics Liquid Soft Brown Brown Voiding Methods Bedside Commode Bedside Commode Laboratory Results WBC 12.90 k/cumm (4.4-10.8) H 07/25/19 06:10 RBC 5.11 m/cumm (4.00-5.20) 07/25/19 06:10 Hgb 15.3 g/dL (12.0-15.5) 07/25/19 06:10 Hct 44.0 % (36.0-46.0) 07/25/19 06:10 MCV 86.1 fL (80-95) 07/25/19 06:10 MCH 29.9 pg (27.0-33.0) 07/25/19 06:10 MCHC 34.8 g/dL (32.0-36.0) 07/25/19 06:10 RDW 14.1 % (11.7-14.6) 07/25/19 06:10 Plt Count 218 x1000/uL (130-400) 07/25/19 06:10 MPV 11.0 fL (8.0-11.0) 07/25/19 06:10 Immature Gran % See Differential 07/25/19 06:10 Neutrophils % 84.0 07/25/19 06:10 Lymphocytes % 7.0 07/25/19 06:10 Atypical Lymphs % 4 07/25/19 06:10 Monocytes % 4.0 07/25/19 06:10 Eosinophils % 0.0 07/25/19 06:10 Basophils % 0.0 07/25/19 06:10 Metamyelocytes % 1.0 % 07/25/19 06:10 Absolute Neutrophils 10.84 k/cumm (1.2-6.7) H 07/25/19 06:10 Absolute Lymphocytes 1.42 k/cumm (1.2-3.4) 07/25/19 06:10 Absolute Monocytes 0.52 k/cumm (0.11-0.7) 07/25/19 06:10 Absolute Eosinophils 0.00 k/cumm (0.0-0.7) 07/25/19 06:10 Absolute Basophils 0.00 k/cumm (0.0-0.2) 07/25/19 06:10 Differential Comment Manual differential 07/25/19 06:10 RBC Morphology Normal 07/25/19 06:10 Sodium 142 mmol/L (136-145) 07/25/19 06:10 Potassium 3.3 mmol/L (3.5-5.1) L 07/25/19 06:10 Chloride 101 mmol/L (98-107) 07/25/19 06:10 Carbon Dioxide 29.3 mmol/L (21.0-32.0) 07/25/19 06:10 Anion Gap 11.7 mmol/L (3-11) H 07/25/19 06:10 BUN 44 mg/dL (7-18) H 07/25/19 06:10 Creatinine 1.65 mg/dL (0.55-1.02) H 07/25/19 06:10 Estimated GFR/1.73 m2 30.94 (mL/min/1.73m2) 07/25/19 06:10 Glucose 275 mg/dL (74-106) H 07/25/19 06:10 Lactate 1.8 mmol/L (0.6-1.4) H 07/25/19 06:10 Calcium 8.4 mg/dL (8.5-10.1) L 07/25/19 06:10 Magnesium 1.7 mg/dL (1.8-2.4) L 07/25/19 06:10 Total Bilirubin 1.3 mg/dL (0.2-1.0) H 07/25/19 06:10 Conjugated Bilirubin 0.37 mg/dL (0.00-0.20) H 07/25/19 06:10 AST 29 U/L (15-37) 07/25/19 06:10 ALT 35 U/L (14-59) 07/25/19 06:10 Alkaline Phosphatase 50 U/L (46-116) 07/25/19 06:10 Troponin I < 0.05 ng/Ml (<0.06) 07/23/19 11:53 C-Reactive Protein 1.71 mg/dL (0.0-0.3) H 07/25/19 06:10 NT-Pro-B Natriuret Pep 4273 pg/mL (<300) H 07/22/19 11:30 Total Protein 6.8 g/dL (6.4-8.2) 07/25/19 06:10 Albumin 3.2 g/dL (3.4-5.0) L 07/25/19 06:10 Procalcitonin 0.2 ng/mL 07/25/19 06:10 TSH 0.33 uIU/mL (0.36-3.74) L 07/23/19 06:14 Free T4 1.25 ng/dL (0.76-1.46) 07/23/19 06:14 Urine Color Yellow (Yellow) 07/22/19 20: Urine Clarity Sl cloudy (Clear) 07/22/19 20: Urine pH 5.5 (5-8) 07/22/19 20:25 Ur Specific [place] 1.020 (1.005-1.025) 07/22/19 20: Urine Protein 30 mg/dL (Negative) H 07/22/19 20:25 Urine Ketones Negative mg/dL (Negative) 07/22/19 20: Urine Blood Large (Negative) H 07/22/19 20:25 Urine Nitrite Negative (Negative) 07/22/19 20: Urine Bilirubin Negative (Negative) 07/22/19 20 Urine Urobilinogen 0.2 EU/dL (Up TO 0.2) 07/22/19 20:25 Ur Leukocyte Esterase Negative (Negative) 07/22/19 20:25 Urine RBC >50 HPF (0-2) H 07/22/19 20:25 Urine WBC 5-10 HPF (0-5) 07/22/19 20:25 Ur Epithelial Cells Few HPF (Negative) 07/22/19 20:25 Urine Crystals Few uric acid HPF (Negative) 07/22/19 20:25 Urine Bacteria Few HPF (Negative) 07/22/19 20:25 Urine Mucus Negative (Negative) 07/22/19 20:25 Urine Other Few transitional (Negative) 07/22/19 20:25 Ur Culture Indicated? C&s done as ordered 07/22/19: Urine Glucose Negative mg/dL (Negative) 07/22/19 2025
[2019-07-25] MEDS: Cholecalciferol (Vitamin D3) 1,000 UNIT TAB 1000 UNITS PO (08:52)
[2019-07-25] MEDS: Apixaban 5 MG TAB PO ×2 (08:53→19:58)
[2019-07-25] MEDS: Insulin Aspart 300 UNITS/3 ML PEN SC ×4 (08:54→22:22)
[2019-07-25] MEDS: Calcium Carbonate 1.25 GM TAB 2.5 GM PO (08:54)
[2019-07-25] MEDS: dilTIAZem 30 MG TAB PO (09:04)
[2019-07-25] MEDS: Potassium Chloride 20 MEQ TABCR 40 MEQ PO (09:09)
[2019-07-25] MEDS: Insulin Glargine 300 UNITS/3 ML PEN 10 UNITS SC (09:10)
[2019-07-25] MEDS: MAGNESIUM SULFATE 2 GM/50 ML BAG IVPB (09:11)
--- NOTE | 2019-07-25 12:02 | PDOC.CMPRO ---
- If Service Date Differs Date of service: 07/25/19 Time of Service: 12:02 Care Management Progress Note S/O:Patient will transition to the medical surgical floor today. She remains on IV lasix, Cardizem will transition to oral today. No other changes in plan for discharge. A: Edwige is a 68 year old woman admitted on 07/22/2019 with septic shock P: Edwige will likely discharge home with no new services. She will transport with family and follow up with her PCP and discharge plan of care. CM will continue to support patient, family and discharge plans.
--- NOTE | 2019-07-25 12:37 | W.PM.PROGNOT ---
Date of Service Date of service: 07/25/19 Time of Service: 12:37 Assessment and Plan Assessment and plan (1) Septic shock: Status: Resolved Assessment and plan: Somewhat confusing presentation with no actual fever or leucocytosis, but has pneumonia and CRP/procalcitonin reflect that. Endometritis ruled out, per AS400 ANALYST. BP's normalized. HR still rapid. CRP/procalcitonin are improving on empiric zosyn, and flagyl (day 4). Blood cultures with NGTD. Sputum C&S with normal cesar. Urine C&S with mixed gram positive cesar. Did not require pressors - fluid, antibiotic, and steroid responsive. D/c metronidazole. (2) Chronic atrial fibrillation with rapid ventricular response: Status: Acute Assessment and plan: Failed attempt to wean off cardizem gtt - restart and keep in ICU. Attempt to transition to PO later. (3) Pneumonia: Status: Acute Assessment and plan: Continue zosyn. Taper steroids. (4) Endometritis: Status: Ruled-out Assessment and plan: AS400 ANALYST on board. D/c flagyl US pelvic shows markedly thickened heterogenous endometrium. Uterine bx negative. (5) Acute respiratory failure with hypoxia: Status: Resolved Assessment and plan: Due to PNA - as above (6) Moderate pulmonary arterial systolic hypertension: Status: Chronic Assessment and plan: At this time, appears fluid overloaded. Continue lasix gtt. (7) Acute kidney injury superimposed on chronic kidney disease: Status: Acute Assessment and plan: In setting of hypotension/sepsis. Cr stable on lasix gtt. US abdomen negative for obstructive nephrolithiasis/hydronephrosis. (8) Hypokalemia: Status: Acute Assessment and plan: Replete (9) DVT prophylaxis: Status: Acute Assessment and plan: On therapeutic eliquis (10) Discharge planning issues: Status: Acute Assessment and plan: DNR/DNI Keep in ICU. Subjective Subjective Interval history since last seen: Ms Davis feels better today. She says her breathing is better. Cough is no longer productive. Does get dizzy when she tries to sit up too much. Denies chest pain, n/v. She has had HR in 120-130's most of the day so far, though at night her heart rates were lower. While we attempted to swtich her off of cardizem gtt earlier today, it now has to be restarted. The patient thinks that her heart is racing because she is having an emotional day. She just got the results of her endometrial biopsy back, and it is negative for cancer. Exam Narrative Exam Narrative: General: Very pleasant middle-aged female, laying in bed, then sitting up to eat her HEENT: EOMI, MMM Heart: irregularly irregular rhythm, no m/r/g Lungs: quiet expiratory wheezing, sounds wet Abdomen: soft, nontender, nondistended Extremities: no e/c/c BLE's, B feet warm, +1 pedal pulses Objective Objective Clinical Data: Abnormal lab results 07/24/19 07/25/19 07/25/19 Range/Units 06:30 06:10 06:10 WBC (4.4-10.8) k/cumm Absolute Neutrophils (1.2-6.7) k/cumm Potassium 3.3 L (3.5-5.1) mmol/L Anion Gap 11.7 H (3-11) mmol/L BUN 44 H (7-18) mg/dL Creatinine 1.65 H (0.55-1.02) mg/dL Glucose 275 H (74-106) mg/dL Lactate 1.8 H (0.6-1.4) mmol/L Calcium 8.4 L (8.5-10.1) mg/dL Magnesium 1.7 L (1.8-2.4) mg/dL Total Bilirubin 1.3 H (0.2-1.0) mg/dL Conjugated Bilirubin 0.44 H 0.37 H (0.00-0.20) mg/dL C-Reactive Protein 2.39 H 1.71 H (0.0-0.3) mg/dL Albumin 3.2 L (3.4-5.0) g/dL 07/25/19 Range/Units 06:10 WBC 12.90 H (4.4-10.8) k/cumm Absolute Neutrophils 10.84 H (1.2-6.7) k/cumm Potassium (3.5-5.1) mmol/L Anion Gap (3-11) mmol/L BUN (7-18) mg/dL Creatinine (0.55-1.02) mg/dL Glucose (74-106) mg/dL Lactate (0.6-1.4) mmol/L Calcium (8.5-10.1) mg/dL Magnesium (1.8-2.4) mg/dL Total Bilirubin (0.2-1.0) mg/dL Conjugated Bilirubin (0.00-0.20) mg/dL C-Reactive Protein (0.0-0.3) mg/dL Albumin (3.4-5.0) g/dL Vital Signs Temperature 36 C L 07/25/19 07:45 Temperature Source Temporal Artery Scan 07/25/19 07:45 Pulse 69 07/25/19 12:05 Pulse 98 H 07/25/19 12:05 Respiratory Rate 21 07/25/19 12:05 Respiratory Effort Non-Labored 07/25/19 07:45 Respiratory Depth Normal 07/25/19 07:45 Respiratory Pattern Normal 07/25/19 07:45 Blood Pressure 159/88 H 07/25/19 12:05 Blood Pressure Mean 106 07/25/19 12:05 Blood Pressure Position Supine 07/25/19 07:45 Pulse Oximetry 95 07/25/19 11:54 Oxygen Delivery Method Room Air 07/25/19 11:54 Oxygen Flow Rate 0 07/25/19 11:54 Pain Level 0 07/25/19 04:04 Comment 07/23/19 16:00 Intake & Output 07/24/19 07/25/19 07/25/19 23:59 11:59 23:59 Intake Total 1030.75 / 1570.75 1061.449 / 1061.449 Output Total 1749 / 2074 Balance -719.25 / -504.25 -988.551 / -988.551 Weight 87.7 kg 86.2 kg Intake: IV 550.75 / 850.75 221.449 / 221.449 Oral 480 / 720 840 / 840 Output: Urine 1700 / 1850 2049 Stool 50 / 225 Other: Urine Color Yellow Yellow Urine Appearance Clear Clear Urine Odor Normal None Comment mixed with a BM Urine mixed with stool. Stool Occult Blood Negative Stool Size Moderate Stool Characteristics Soft Brown Voiding Methods Bedside Commode Bedside Commode Laboratory Results WBC 12.90 k/cumm (4.4-10.8) H 07/25/19 06:10 RBC 5.11 m/cumm (4.00-5.20) 07/25/19 06:10 Hgb 15.3 g/dL (12.0-15.5) 07/25/19 06:10 Hct 44.0 % (36.0-46.0) 07/25/19 06:10 MCV 86.1 fL (80-95) 07/25/19 06:10 MCH 29.9 pg (27.0-33.0) 07/25/19 06:10 MCHC 34.8 g/dL (32.0-36.0) 07/25/19 06:10 RDW 14.1 % (11.7-14.6) 07/25/19 06:10 Plt Count 218 x1000/uL (130-400) 07/25/19 06:10 MPV 11.0 fL (8.0-11.0) 07/25/19 06:10 Immature Gran % See Differential 07/25/19 06:10 Neutrophils % 84.0 07/25/19 06:10 Lymphocytes % 7.0 07/25/19 06:10 Atypical Lymphs % 4 07/25/19 06:10 Monocytes % 4.0 07/25/19 06:10 Eosinophils % 0.0 07/25/19 06:10 Basophils % 0.0 07/25/19 06:10 Metamyelocytes % 1.0 % 07/25/19 06:10 Absolute Neutrophils 10.84 k/cumm (1.2-6.7) H 07/25/19 06:10 Absolute Lymphocytes 1.42 k/cumm (1.2-3.4) 07/25/19 06:10 Absolute Monocytes 0.52 k/cumm (0.11-0.7) 07/25/19 06:10 Absolute Eosinophils 0.00 k/cumm (0.0-0.7) 07/25/19 06:10 Absolute Basophils 0.00 k/cumm (0.0-0.2) 07/25/19 06:10 Differential Comment Manual differential 07/25/19 06:10 RBC Morphology Normal 07/25/19 06:10 Sodium 142 mmol/L (136-145) 07/25/19 06:10 Potassium 3.3 mmol/L (3.5-5.1) L 07/25/19 06:10 Chloride 101 mmol/L (98-107) 07/25/19 06:10 Carbon Dioxide 29.3 mmol/L (21.0-32.0) 07/25/19 06:10 Anion Gap 11.7 mmol/L (3-11) H 07/25/19 06:10 BUN 44 mg/dL (7-18) H 07/25/19 06:10 Creatinine 1.65 mg/dL (0.55-1.02) H 07/25/19 06:10 Estimated GFR/1.73 m2 30.94 (mL/min/1.73m2) 07/25/19 06:10 Glucose 275 mg/dL (74-106) H 07/25/19 06:10 Lactate 1.8 mmol/L (0.6-1.4) H 07/25/19 06:10 Calcium 8.4 mg/dL (8.5-10.1) L 07/25/19 06:10 Magnesium 1.7 mg/dL (1.8-2.4) L 07/25/19 06:10 Total Bilirubin 1.3 mg/dL (0.2-1.0) H 07/25/19 06:10 Conjugated Bilirubin 0.37 mg/dL (0.00-0.20) H 07/25/19 06:10 AST 29 U/L (15-37) 07/25/19 06:10 ALT 35 U/L (14-59) 07/25/19 06:10 Alkaline Phosphatase 50 U/L (46-116) 07/25/19 06:10 Troponin I < 0.05 ng/Ml (<0.06) 07/23/19 11:53 C-Reactive Protein 1.71 mg/dL (0.0-0.3) H 07/25/19 06:10 NT-Pro-B Natriuret Pep 4273 pg/mL (<300) H 07/22/19 11:30 Total Protein 6.8 g/dL (6.4-8.2) 07/25/19 06:10 Albumin 3.2 g/dL (3.4-5.0) L 07/25/19 06:10 Procalcitonin 0.2 ng/mL 07/25/19 06:10 TSH 0.33 uIU/mL (0.36-3.74) L 07/23/19 06:14 Free T4 1.25 ng/dL (0.76-1.46) 07/23/19 06:14 Urine Color Yellow (Yellow) 07/22/19: Urine Clarity Sl cloudy (Clear) 07/22/19: Urine pH 5.5 (5-8) 07/22/19 20:25 Ur Specific [place] 1.020 (1.005-1.025) 07/22/19 20: Urine Protein 30 mg/dL (Negative) H 07/22/19 20: Urine Ketones Negative mg/dL (Negative) 07/22/19 20: Urine Blood Large (Negative) H 07/22/19 20: Urine Nitrite Negative (Negative) 07/22/19: Urine Bilirubin Negative (Negative) 07/22/19: Urine Urobilinogen 0.2 EU/dL (Up TO 0.2) 07/22/19 20:25 Ur Leukocyte Esterase Negative (Negative) 07/22/19 20: Urine RBC >50 HPF (0-2) H 07/22/19 20:25 Urine WBC 5-10 HPF (0-5) 07/22/19 20:25 Ur Epithelial Cells Few HPF (Negative) 07/22/19 20:25 Urine Crystals Few uric acid HPF (Negative) 07/22/19 20: Urine Bacteria Few HPF (Negative) 07/22/19 20:25 Urine Mucus Negative (Negative) 07/22/19 20:25 Urine Other Few transitional (Negative) 07/22/19 20: Ur Culture Indicated? C&s done as ordered 07/22/19 Urine Glucose Negative mg/dL (Negative) 07/22/19 20:25
[2019-07-25] MEDS: Normal Saline Flush 10 ML SYR IVP (14:21)
[2019-07-25] MEDS: Pantoprazole 40 MG VIAL IVP (14:22)
--- NOTE | 2019-07-25 16:14 | CHAPLAIN ---
Edwige was in bed when I visited and her son Noel was with her. She filled me on what brought her to the ER and then ICU. She asked that I offer a prayer with her. Edwige attends the [employer] sometimes, but was not interested in me contacting the dental amalgam processor there. Her family is very supportive. She has a son and daughter and their spouses. Edwige also has a lot of friends in the community.
[2019-07-25] MEDS: dilTIAZem 60 MG TAB PO (19:58)
[2019-07-25] MEDS: predniSONE 20 MG TAB 40 MG PO (19:58)
[2019-07-26] VITALS (33 sets, daily range): BP systolic 107–158; BP diastolic 71–111; PULSE 57–150; RESP 15–28; TEMP 35.3–36.9; O2SAT 90–96
[2019-07-26] MEDS: PIPERACILLIN/TAZO 3.375 GM in Normal Saline 50 ML IVPB ×4 (01:53→20:13)
[2019-07-26] MEDS: Aspirin 325 MG TAB PO (06:20)
[2019-07-26] MEDS: metroNIDAZOLE 500 MG/100 ML BAG 1000 MG IVPB (06:21)
[2019-07-26] MEDS: Normal Saline Flush 10 ML SYR IVP ×2 (06:24→20:12)
[2019-07-26 07:28] LABS: HCT 46.9 % (36.0-46.0); HGB 16.2 g/dL (12.0-15.5); Mean Corp. HGB Concentration 34.5 g/dL (32.0-36.0); Mean Corpuscular Hemoglobin 29.6 pg (27.0-33.0); Mean Corpuscular Volume 85.7 fL (80-95); Mean Platelet Volume 11.1 fL (8.0-11.0); Platelet Count 245 x1000/uL (130-400); RBC 5.47 m/cumm (4.00-5.20); RBC Distribution Width 13.9 % (11.7-14.6); White Blood Cell Count 12.44 k/cumm (4.4-10.8)
[2019-07-26 07:49] LABS: Anion Gap 10.6 mmol/L (3-11); BUN 41 mg/dL (7-18); C-Reactive Protein 1.32 mg/dL (0.0-0.3); CO2 32.4 mmol/L (21.0-32.0); Calcium 8.7 mg/dL (8.5-10.1); Chloride 99 mmol/L (98-107); Estimated GFR 32.05 (mL/min/1.73m2); Glucose 273 mg/dL (74-106); Magnesium 1.9 mg/dL (1.8-2.4); Sodium 142 mmol/L (136-145)
[2019-07-26 07:57] LABS: Absolute Monocyte Count 0.25 k/cumm (0.11-0.7)
[2019-07-26 07:58] LABS: Anisocytosis 1+
[2019-07-26 07:59] LABS: Diff Comment Manual Differential; Polychromasia Present
[2019-07-26] MEDS: Insulin Aspart 300 UNITS/3 ML PEN SC ×4 (08:03→21:36)
[2019-07-26] MEDS: Apixaban 5 MG TAB PO ×2 (08:22→20:11)
[2019-07-26 08:23] LABS: Procalcitonin 0.1 ng/mL
[2019-07-26] MEDS: dilTIAZem 60 MG TAB PO ×3 (08:23→20:11)
[2019-07-26] MEDS: Cholecalciferol (Vitamin D3) 1,000 UNIT TAB 1000 UNITS PO (08:24)
[2019-07-26] MEDS: predniSONE 20 MG TAB 40 MG PO (08:24)
[2019-07-26] MEDS: Calcium Carbonate 1.25 GM TAB 2.5 GM PO (08:24)
--- NOTE | 2019-07-26 08:55 | PGE_ITS ---
Date of Service Date of service: 07/26/19 Time of Service: 13:06 Assessment and Plan Assessment and plan (1) Septic shock: Status: Resolved Assessment and plan: Somewhat confusing presentation with no actual fever or leucocytosis, but has pneumonia and CRP/procalcitonin reflect that. Endometritis ruled out, per DUPLICATING MACHINE SERVICER. BP's normalized. HR still rapid. CRP/procalcitonin are improving on empiric zosyn (day 5). Blood cultures with NGTD. Sputum C&S with normal cesar. Urine C&S with mixed gram positive cesar. Did not require pressors - fluid, antibiotic, and steroid responsive. Repeat CXR today. (2) Chronic atrial fibrillation with rapid ventricular response: Status: Acute Assessment and plan: Rates accelerating again after diltiazem gtt d/c'ed. Will increase cardizem to 60 mg PO Q6hrs. May require re-introduction/addition of metoprolol. (3) Pneumonia: Status: Acute Assessment and plan: Continue zosyn. Taper steroids. Repeat CXR. (4) Endometritis: Status: Ruled-out Assessment and plan: DUPLICATING MACHINE SERVICER on board. D/c flagyl US pelvic shows markedly thickened heterogenous endometrium. Uterine bx negative. (5) Acute respiratory failure with hypoxia: Status: Resolved Assessment and plan: Due to PNA - as above (6) Moderate pulmonary arterial systolic hypertension: Status: Chronic Assessment and plan: Lasix gtt d/c'ed, but may have to be resumed. Repeat CXR For lasix IV 20 mg now. (7) Acute kidney injury superimposed on chronic kidney disease: Status: Acute Assessment and plan: In setting of hypotension/sepsis. Cr not budging from 1.6. Diurese monitoring Cr/I/O's/daily weights US abdomen negative for obstructive nephrolithiasis/hydronephrosis. (8) Hypokalemia: Status: Acute Assessment and plan: Replete (9) DVT prophylaxis: Status: Acute Assessment and plan: On therapeutic eliquis (10) Discharge planning issues: Status: Acute Assessment and plan: DNR/DNI Likely ok to transfer to [place] if the extra dose of diltiazem slows the HR. Subjective Subjective Interval history since last seen: Ms Daivs feels worse this morning. More winded when moving. Denies dizziness, chest pain, nausea. HR 85 this am, BP's holding, but went up later to 110's-130's later in the morning. Off diltiazem drip since 9 pm. HR 45 briefly once overnight. Up to 140's when ambulating last night. Lasix gtt d/c'ed BG 271. Exam Narrative Exam Narrative: General: Very pleasant middle-aged female, laying in bed at 30 degrees, looks worse today HEENT: EOMI, MMM Heart: irregularly irregular rhythm, no m/r/g Lungs: crackles at B bases Abdomen: soft, nontender, nondistended Extremities: no e/c/c BLE's, B feet warm, +1 pedal pulses Objective Objective Clinical Data: Abnormal lab results 07/26/19 07/26/19 Range/Units 06:45 06:45 WBC 12.44 H (4.4-10.8) k/cumm RBC 5.47 H (4.00-5.20) m/cumm Hgb 16.2 H (12.0-15.5) g/dL Hct 46.9 H (36.0-46.0) % MPV 11.1 H (8.0-11.0) fL Absolute Neutrophils 11.20 H (1.2-6.7) k/cumm Absolute Lymphocytes 1.00 L (1.2-3.4) k/cumm Potassium 3.0 L (3.5-5.1) mmol/L Carbon Dioxide 32.4 H (21.0-32.0) mmol/L BUN 41 H (7-18) mg/dL Creatinine 1.60 H (0.55-1.02) mg/dL Glucose 273 H (74-106) mg/dL C-Reactive Protein 1.32 H (0.0-0.3) mg/dL Vital Signs Temperature 35.7 C L 07/26/19 08:27 Temperature Source Temporal Artery Scan 07/26/19 08:27 Pulse 85 07/26/19 08:27 Pulse 94 H 07/26/19 02:01 Respiratory Rate 17 07/26/19 08:27 Respiratory Effort Short of Breath 07/26/19 03:00 Respiratory Depth Normal 07/26/19 03:00 Respiratory Pattern Normal 07/26/19 03:00 Blood Pressure 158/84 H 01/09/20 08:27 Blood Pressure Mean 89 07/26/19 02:01 Blood Pressure Position Supine 07/25/19 20:10 Pulse Oximetry 95 07/26/19 08:27 Oxygen Delivery Method Room Air 07/26/19 08:27 Oxygen Flow Rate 0 07/26/19 08:27 Pain Level 0 07/26/19 08:27 Comment 07/23/19 16:00 Intake & Output 07/25/19 07/25/19 07/26/19 11:59 23:59 11:59 Intake Total 1211.449 / 1505.366 293.917 / 1505.366 880.625 / 880.625 Output Total 2049 1000 / 1000 Balance -838.551 / -544.634 293.917 / -544.634 -119.375 / -119.375 Weight 85.2 kg Intake: IV 371.449 / 665.366 293.917 / 665.366 160.625 / 160.625 Oral 840 / 840 720 / 720 Output: Urine 2049 1000 / 1000 Other: Urine Color Yellow Yellow Urine Appearance Clear Clear Urine Odor None None Comment Urine mixed with stool. Lasix gtt continues at 2.5mg/hr. Mixed with stool. Urine chemstrip dip positive for blood. Stool Occult Blood Negative Stool Size Moderate Stool Characteristics Liquid Voiding Methods Bedside Commode Bedside Commode Laboratory Results WBC 12.44 k/cumm (4.4-10.8) H 07/26/19 06:45 RBC 5.47 m/cumm (4.00-5.20) H 07/26/19 06:45 Hgb 16.2 g/dL (12.0-15.5) H 07/26/19 06:45 Hct 46.9 % (36.0-46.0) H 07/26/19 06:45 MCV 85.7 fL (80-95) 07/26/19 06:45 MCH 29.6 pg (27.0-33.0) 07/26/19 06:45 MCHC 34.5 g/dL (32.0-36.0) 07/26/19 06:45 RDW 13.9 % (11.7-14.6) 07/26/19 06:45 Plt Count 245 x1000/uL (130-400) 07/26/19 06:45 MPV 11.1 fL (8.0-11.0) H 07/26/19 06:45 Immature Gran % See Differential 07/26/19 06:45 Neutrophils % 90.0 07/26/19 06:45 Band Neutrophils % 0.0 % 07/26/19 06:45 Lymphocytes % 6.0 07/26/19 06:45 Atypical Lymphs % 2.0 07/26/19 06:45 Monocytes % 2.0 07/26/19 06:45 Eosinophils % 0.0 07/26/19 06:45 Basophils % 0.0 07/26/19 06:45 Metamyelocytes % 1.0 % 07/25/19 06:10 Absolute Neutrophils 11.20 k/cumm (1.2-6.7) H 07/26/19 06:45 Absolute Lymphocytes 1.00 k/cumm (1.2-3.4) L 07/26/19 06:45 Absolute Monocytes 0.25 k/cumm (0.11-0.7) 07/26/19 06:45 Absolute Eosinophils 0.00 k/cumm (0.0-0.7) 07/26/19 06:45 Absolute Basophils 0.00 k/cumm (0.0-0.2) 07/26/19 06:45 Differential Comment Manual differential 07/26/19 06:45 RBC Morphology See below 07/26/19 06:45 Polychromasia Present 07/26/19 06:45 Anisocytosis 1+ 07/26/19 06:45 Sodium 142 mmol/L (136-145) 07/26/19 06:45 Potassium 3.0 mmol/L (3.5-5.1) L 07/26/19 06:45 Chloride 99 mmol/L (98-107) 07/26/19 06:45 Carbon Dioxide 32.4 mmol/L (21.0-32.0) H 07/26/19 06:45 Anion Gap 10.6 mmol/L (3-11) 07/26/19 06:45 BUN 41 mg/dL (7-18) H 07/26/19 06:45 Creatinine 1.60 mg/dL (0.55-1.02) H 07/26/19 06:45 Estimated GFR/1.73 m2 32.05 (mL/min/1.73m2) 07/26/19 06:45 Glucose 273 mg/dL (74-106) H 07/26/19 06:45 Lactate 1.8 mmol/L (0.6-1.4) H 07/25/19 06:10 Calcium 8.7 mg/dL (8.5-10.1) 07/26/19 06:45 Magnesium 1.9 mg/dL (1.8-2.4) 07/26/19 06:45 Total Bilirubin 1.3 mg/dL (0.2-1.0) H 07/25/19 06:10 Conjugated Bilirubin 0.37 mg/dL (0.00-0.20) H 07/25/19 06:10 AST 29 U/L (15-37) 07/25/19 06:10 ALT 35 U/L (14-59) 07/25/19 06:10 Alkaline Phosphatase 50 U/L (46-116) 07/25/19 06:10 Troponin I < 0.05 ng/Ml (<0.06) 07/23/19 11:53 C-Reactive Protein 1.32 mg/dL (0.0-0.3) H 07/26/19 06:45 NT-Pro-B Natriuret Pep 4273 pg/mL (<300) H 07/22/19 11:30 Total Protein 6.8 g/dL (6.4-8.2) 07/25/19 06:10 Albumin 3.2 g/dL (3.4-5.0) L 07/25/19 06:10 Procalcitonin 0.1 ng/mL 07/26/19 06:45 TSH 0.33 uIU/mL (0.36-3.74) L 07/23/19 06:14 Free T4 1.25 ng/dL (0.76-1.46) 07/23/19 06:14 Urine Color Yellow (Yellow) 07/22/19 20:25 Urine Clarity Sl cloudy (Clear) 07/22/19 20:25 Urine pH 5.5 (5-8) 07/22/19 20:25 Ur Specific [place] 1.020 (1.005-1.025) 07/22/19 20:25 Urine Protein 30 mg/dL (Negative) H 07/22/19 20:25 Urine Ketones Negative mg/dL (Negative) 07/22/19 20:25 Urine Blood Large (Negative) H 07/22/19 20:25 Urine Nitrite Negative (Negative) 07/22/19 20:25 Urine Bilirubin Negative (Negative) 07/22/19 20:25 Urine Urobilinogen 0.2 EU/dL (Up TO 0.2) 07/22/19 20:25 Ur Leukocyte Esterase Negative (Negative) 07/22/19 20:25 Urine RBC >50 HPF (0-2) H 07/22/19 20:25 Urine WBC 5-10 HPF (0-5) 07/22/19 20:25 Ur Epithelial Cells Few HPF (Negative) 07/22/19 20:25 Urine Crystals Few uric acid HPF (Negative) 07/22/19 20:25 Urine Bacteria Few HPF (Negative) 07/22/19 20:25 Urine Mucus Negative (Negative) 07/22/19 20:25 Urine Other Few transitional (Negative) 07/22/19 20:25 Ur Culture Indicated? C&s done as ordered 07/22/19 20: Urine Glucose Negative mg/dL (Negative) 07/22/19 20:25
--- NOTE | 2019-07-26 10:16 | PDOC.CMPRO ---
- If Service Date Differs Date of service: 07/26/19 Time of Service: 10:16 Care Management Progress Note S/O:Edwige was sitting up in a chair when CM met with her. She states she is feeling better and there is a plan to move her to Med-surg when a bed is available. Edwige remains pleasant and engages quickly with CM during visits. A: Edwige is a 68 year old woman admitted on 07/22/2019 with septic shock P: Edwige will likely discharge home with no new services. She will transport with family and follow up with her PCP and discharge plan of care. CM will continue to support patient, family and discharge plans.
[2019-07-26] MEDS: Potassium Chloride 20 MEQ TABCR 40 MEQ PO ×2 (12:44→20:11)
[2019-07-26] MEDS: Insulin Glargine 300 UNITS/3 ML PEN 15 UNITS SC (12:46)
--- NOTE | 2019-07-26 13:43 | DI.RAD_ITS ---
EXAM: XR PORTABLE CHEST AP CLINICAL HISTORY: worsening shortness of breath TECHNIQUE: COMPARISON: XR PORTABLE CHEST AP from 07/23/2019 FINDINGS: The heart is not enlarged. Lungs are generally clear. Question slight blunting of costophrenic angl e on the left, pleural effusion not excluded. Additional evaluation with PA and lateral chest sugges thelma to evaluate for possible pleural effusion. IMPRESSION:
[2019-07-26] MEDS: Furosemide 20 MG/2 ML VIAL IVP (13:55)
[2019-07-26] MEDS: Pantoprazole 40 MG VIAL IVP (13:59)
--- NOTE | 2019-07-26 14:50 | NUR.NOTE ---
Nursing Note: Pt transferred from ICU to room 228. A&Ox3, VSS HR 59. face flushed. LS clear, HR irreg, no edema, slight increased WOB. Daughter at bedside. Pt talkative. oriented to room. call light w/in reach.
[2019-07-26] MEDS: Metoprolol 25 MG TAB PO (17:42)
[2019-07-26] MEDS: Furosemide 40 MG TAB PO (17:43)
--- NOTE | 2019-07-26 19:03 | PDOC.CMPRO ---
- If Service Date Differs Date of service: 07/26/19 Time of Service: 19:03 Care Management Progress Note S/O: Edwige was sitting in her chair when CM met with her. Her son and daughter were both in the room. She reported that she lives alone but has a very supportive family. She reported that if she remains stable she will be able to return home tomorrow. CM will continue to follow. A: Edwige is a 68 year old woman admitted on 07/22/2019 with septic shock P: Edwige will likely discharge home with no new services. She will transport with family and follow up with her PCP and discharge plan of care. CM will continue to support patient, family and discharge plans.
[2019-07-27] VITALS (11 sets, daily range): BP systolic 124–150; BP diastolic 64–95; PULSE 54–126; RESP 16–18; TEMP 36–36.8; O2SAT 91–96
[2019-07-27] MEDS: PIPERACILLIN/TAZO 3.375 GM in Normal Saline 50 ML IVPB ×4 (01:23→20:04)
[2019-07-27] MEDS: Normal Saline Flush 10 ML SYR IVP ×3 (01:23→20:04)
[2019-07-27] MEDS: dilTIAZem 60 MG TAB PO ×2 (01:24→08:19)
[2019-07-27] MEDS: Metoprolol 12.5 MG TAB PO ×2 (01:25→09:41)
[2019-07-27] MEDS: Potassium Chloride 20 MEQ TABCR 40 MEQ PO (04:47)
[2019-07-27] MEDS: Aspirin 325 MG TAB PO (04:48)
[2019-07-27 07:31] LABS: Abs Immature Grans 0.35 k/cumm (0.0-0.09); HCT 49.3 % (36.0-46.0); HGB 16.9 g/dL (12.0-15.5); Mean Corp. HGB Concentration 34.3 g/dL (32.0-36.0); Mean Corpuscular Hemoglobin 29.4 pg (27.0-33.0); Mean Corpuscular Volume 85.7 fL (80-95); Mean Platelet Volume 10.7 fL (8.0-11.0); Platelet Count 257 x1000/uL (130-400); RBC 5.75 m/cumm (4.00-5.20); White Blood Cell Count 11.86 k/cumm (4.4-10.8)
[2019-07-27 07:41] LABS: BUN 45 mg/dL (7-18); C-Reactive Protein 1.29 mg/dL (0.0-0.3); CREATININE 1.74 mg/dL (0.55-1.02); Calcium 8.7 mg/dL (8.5-10.1); Chloride 98 mmol/L (98-107); Glucose 196 mg/dL (74-106); Potassium 3.8 mmol/L (3.5-5.1); Sodium 140 mmol/L (136-145)
[2019-07-27 08:03] LABS: Absolute Lymphocyte Count 2.13 k/cumm (1.2-3.4); Absolute Monocyte Count 0.83 k/cumm (0.11-0.7); Absolute Neutrophil Count 8.66 k/cumm (1.2-6.7); Atypical Lymphocytes % 5
[2019-07-27 08:05] LABS: Diff Comment Manual Differential; RBC Morphology Normal
[2019-07-27] MEDS: Apixaban 5 MG TAB PO ×2 (08:18→20:04)
[2019-07-27] MEDS: Calcium Carbonate 1.25 GM TAB 2.5 GM PO (08:18)
[2019-07-27] MEDS: Cholecalciferol (Vitamin D3) 1,000 UNIT TAB 1000 UNITS PO (08:18)
[2019-07-27] MEDS: Furosemide 40 MG TAB PO ×2 (08:18→17:29)
[2019-07-27] MEDS: predniSONE 20 MG TAB 40 MG PO (08:19)
[2019-07-27] MEDS: Insulin Aspart 300 UNITS/3 ML PEN SC ×4 (08:19→22:33)
[2019-07-27] MEDS: dilTIAZem 30 MG TAB PO (09:40)
[2019-07-27] MEDS: dilTIAZem 30 MG TAB 90 MG PO ×2 (14:56→20:03)
[2019-07-27] MEDS: Metoprolol 12.5 MG TAB 25 MG PO ×2 (14:56→22:25)
[2019-07-27] MEDS: Pantoprazole 40 MG VIAL IVP (14:57)
--- NOTE | 2019-07-27 15:01 | PT.INIE ---
Date of service: 07/27/19 Time of Service: 13:01 PT Notes Visit Reasons: SEPTIC SHOCK, RAPD AFIB, ACUTE HYPOXIA, ?ENDOMETRI Physical Therapy Inpatient Initial Evaluation Date: 07/26/2019 Referring Doctor: Sophia Estrada MD PT Orders: PT CONSULT: Limited Ability Precautions: Standard. Activity as tolerated. Patient Profile/Admitting Diagnosis: Pt is 68-year-old female with a history of atrial fibrillation who was admitted on 07/22/2019 for septic shock, pneumonia, rapid atrial fibrillation, and acute hypoxia. PMHX: Medical History (Updated 07/22/19 @ 14:19 by Sophia Estrada MD) Atrial fibrillation (Chronic 04/29/14) BMI 33.0-33.9,adult (Chronic) CAD (coronary artery disease) (Chronic) a. drug eluting stents Elevated hematocrit (Chronic) Elevated hemoglobin (Chronic) H/O hypercalcemia (Chronic) H/O hyperparathyroidism (Chronic) a. Surgery to remove adenomas Hypertension (Chronic) Hypertensive CKD (chronic kidney disease) (Chronic) A. probably stage 1 or 2 B. baseline creatinine 1.1 to 1.2 Impaired fasting glucose (Chronic) Metabolic syndrome (Chronic) a. triglycerides greater than 300 and HDL less than 30 Obesity (Chronic) Osteoarthritis (Chronic) Post-menopausal bleeding (Acute) Tobacco abuse (Resolved) a. age [age] with eight year hiatus in there somewhere, appx 1/2 to 1 PPD Surgical History H/O benign neoplasm (Resolved) resected H/O parathyroidectomy (Chronic) s/p 2 stents Hx of cardiac cath (Chronic) Social History/Home Situation: Pt lives alone. Reports that there is one step into the home and 13 steps to the second floor. Equipment Owned/DME: standard walker Subjective: Pt reports that she is a little tired at the time of the IE. She denies pain, SOB, chest pain, dizziness. Objective: General Observation: Telemonitor in place Mental Status: alert and oriented x4 Pain: 0/10 Vital Signs: SpO2 remained between 92-98% while ambulating. ROM: Right Upper Extremity: Shoulder Flexion WFL. Shoulder abduction WFL. Elbow flexion WFL. Wrist flexion WFL. Opening and closing of hand WFL. Left Upper Extremity: Shoulder Flexion WFL. Shoulder abduction WFL. Elbow flexion WFL. Wrist flexion WFL. Opening and closing of hand WFL. Right Lower Extremity: Hip flexion WFL. Hip abduction WFL. Knee flexion WFL. Ankle dorsiflexion WFL. Ankle plantarflexion WFL. Left Lower Extremity: Hip flexion WFL. Hip abduction WFL. Knee flexion WFL. Ankle dorsiflexion WFL. Ankle plantarflexion WFL. Strength: Right Upper Extremity: Shoulder flexors 4+/5. Shoulder abductors 5/5. Elbow flexors 5/5. Elbow extensors 5/5. Insurance Sales Manager strong. Left Upper Extremity: Shoulder flexors 4+/5. Shoulder abductors 5/5. Elbow flexors 5/5. Elbow extensors 5/5. Insurance Sales Manager strong. Right Lower Extremity: Hip flexors 4/5. Hip abductors 5/5. Knee flexors 4+/5. Knee extensors 4/5. Ankle dorsiflexors 4+/5. Ankle plantarflexors 5/5. Left Lower Extremity: Hip flexors 4/5. Hip abductors 5/5. Knee flexors 4+/5. Knee extensors 4/5. Ankle dorsiflexors 4+/5. Ankle plantarflexors 5/5. Sensation: Intact as to pain and pressure on bilateral lower extremities. Bed Mobility/Transfers: Rolling Independent Supine to sit Independent Sit to supine Independent Sit to stand Supervision Stand to sit Supervision Bed to chair Supervision Chair to bed Supervision Gait: Pt was able to ambulate 150 feet without an assistive device. Gait belt on. Supervision by PT and PT student. No subjective complaints of SOB, chest pain, dizziness, or headache during ambulation. Pt reported that she did not wish to walk any further as she was becoming fatigued. Balance: Static Sitting: Normal Dynamic Sitting: Normal Static Standing: Normal Dynamic Standing: Good Special Tests: Mobility Limitations Standardized Measure [facility] [place]-PAC 6 clicks Basic Mobility Inpatient Short Form: Raw Score: 24 CMS Score: 0% Two-minute walk test: Pt was able to ambulate 166 steps within two-minutes using a step through gait pattern and no assistive device. Supervision of the PT and PT student. Informed Consent/Education: Patient instructed in purpose of PT consult and plan of care. Assessment: Pt is 68-year-old female with a history of atrial fibrillation was admitted to the ICU on 07/22/2019 for septic shock, pneumonia, rapid atrial fibrillation, and acute hypoxia. At the time of initial evaluation, the pt demonstrated impairment level findings including decreased LE strength which further limited her activity tolerance with ambulation. Pt would benefit from skilled physical therapy to improve LE strength and promote greater independence with activity. Patient presents with clinical signs and symptoms consistent with current/admitting diagnoses that have resulted to mild gait instability and generalized weakness as demonstrated by the following impairment level findings: 1. Decreased strength to B LE hip flexors, knee extensors, and dorsiflexors. 2. Impaired activity tolerance Impairments are contributing to the following functional limitations: 1. Increased dependence with transfers 2. Increase completion time for mobility ADL performance 3. Inability to negotiate steps alone safely Patient is assessed as a [id number] moderate complexity based on the following: History: Pt is 68-year-old female with a history of atrial fibrillation was admitted to the ICU on 07/22/2019 for septic shock, pneumonia, rapid atrial fibrillation, and acute hypoxia. Examination: Demonstrable impairment in strength and balance with underlying impairments and functional limitations as documented above Presentation: Evolving Decision Makin moderate complexity Goals: Goals X1 week 1. Sit-Stand independent 2. Stand-Sit independent 3. Bed-Chair independent 4. Chair-Bed independent 8. Independent stair negotiation while holding onto bilateral rails for at least 10 steps without report of pain nor dyspnea 9. Independent with home exercise program 10. Good dynamic standing balance/tolerance Plan of Care/Treatment Plan: 1-2x/day, 7 days/week x 1 week. Plan of care has been reviewed with the [employer] PERSON providing the service under Physical Therapy direction. Initiate Physical Therapy intervention for strengthening, bed mobility, transfers, gait, stairs, balance training, use of assistive device. DISCHARGE RECOMMENDATIONS: Discharge to home when medically cleared. TREATMENT CODE/TIME: 45938 x 27 minutes beginning at 13:01 P.M. Thank you very much for this referral. Alpa Graham, FLEX Doctor of Physical Therapy Student [facility] Supervision provided by: Alba James PT, DPT, CLT [facility] [place], [place]
--- NOTE | 2019-07-27 15:06 | PDOC.CMPRO ---
- If Service Date Differs Date of service: 07/27/19 Time of Service: 15:06 Care Management Progress Note S/O: Edwige was sitting in her chair when CM met with her. She was smiling and making jokes and stated that she is feeling much better. She shared that she had excellent care in the ICU and loves the nurses there, but is happy to be out on the floor in a larger room with more privacy. She talked a bit about how much she enjoys cooking and about the many friends she has in the community that she enjoys cooking for. She also shared that several of her friends have offered to have her come stay with them when she is discharged. She also has a son and a daughter in the area who would like to have her with them. A: Edwige is a 68 year old woman admitted on 07/22/2019 with septic shock P: Edwige will likely discharge home with no new services. She will transport with family and follow up with her PCP and discharge plan of care. CM will continue to support patient, family and discharge plans.
--- NOTE | 2019-07-27 18:04 | W.PM.PROGNOT ---
Date of Service Date of service: 07/27/19 Time of Service: 16:30 Assessment and Plan Assessment and plan (1) Septic shock: Status: Resolved Assessment and plan: Somewhat confusing presentation with no actual fever or leucocytosis, but has pneumonia and CRP/procalcitonin reflect that. Endometritis ruled out, per DIRECTOR SURGICAL. BP's normalized. Inflammatory markers improved. Continue zosyn (day 6/7). Blood cultures with NGTD. Sputum C&S with normal cesar. Urine C&S with mixed gram positive cesar. Did not require pressors - fluid, antibiotic, and steroid responsive. (2) Chronic atrial fibrillation with rapid ventricular response: Status: Acute Assessment and plan: Rates finally better on diltiazem 90 mg PO Q6 hrs and newly increased metoprolol 25 mg PO TID. BPs seem to be tolerating. May be able to convert to long acting medications if heart rates remain stable overnight. Continue apixaban. Would benefit from a holter monitor as outpatient (3) Pneumonia: Status: Acute Assessment and plan: Continue zosyn day 6/7. Taper steroids. CXR does not show an obvious infiltrate. (4) Endometritis: Status: Ruled-out Assessment and plan: DIRECTOR SURGICAL on board. Doing well off flagyl. US pelvic shows markedly thickened heterogenous endometrium. Uterine bx negative for malignancy. Will need outpatient D&C. (5) Acute respiratory failure with hypoxia: Status: Resolved Assessment and plan: Due to PNA - as above (6) Moderate pulmonary arterial systolic hypertension: Status: Chronic Assessment and plan: Continue PO lasix. (7) Acute kidney injury superimposed on chronic kidney disease: Status: Acute Assessment and plan: In setting of hypotension/sepsis. Cr slightly worse today. Consider decreasing lasix. US abdomen negative for obstructive nephrolithiasis/hydronephrosis. (8) Hypokalemia: Status: Resolved Assessment and plan: Recheck in am (9) DVT prophylaxis: Status: Acute Assessment and plan: On therapeutic eliquis (10) Discharge planning issues: Status: Acute Assessment and plan: DNR/DNI Possible discharge home tomorrow with a holter monitor Subjective Subjective Interval history since last seen: Ms Davis is having a better day today. She denies dizziness, chest pain, states she did not feel short of breath walking around the floor today, denies nausea/vomiting. Her heart rate on telemetry had remained in 120's-130's until this afternoon - it is now down to 80's. Exam Narrative Exam Narrative: General: Very pleasant middle-aged female, sitting up in a chair, looks much better HEENT: EOMI, MMM Heart: irregularly irregular rhythm, no m/r/g Lungs: minimal crackles at B bases Abdomen: soft, nontender, nondistended Extremities: no e/c/c BLE's, B feet warm, +1 pedal pulses Objective Objective Clinical Data: Abnormal lab results 07/27/19 07/27/19 Range/Units 07:05 07:05 WBC 11.86 H (4.4-10.8) k/cumm RBC 5.75 H (4.00-5.20) m/cumm Hgb 16.9 H (12.0-15.5) g/dL Hct 49.3 H (36.0-46.0) % Absolute Neutrophils 8.66 H (1.2-6.7) k/cumm Absolute Monocytes 0.83 H (0.11-0.7) k/cumm Carbon Dioxide 35.0 H (21.0-32.0) mmol/L BUN 45 H (7-18) mg/dL Creatinine 1.74 H (0.55-1.02) mg/dL Glucose 196 H D (74-106) mg/dL C-Reactive Protein 1.29 H (0.0-0.3) mg/dL Vital Signs Temperature 36.4 C L 07/27/19 15:35 Temperature Source Tympanic 07/27/19 15:35 Pulse 83 07/27/19 15:35 Pulse Rhythm Irregular 07/27/19 08:31 Pulse 118 H 07/26/19 13:00 Respiratory Rate 18 07/27/19 15:35 Respiratory Effort Non-Labored 07/27/19 08:31 Respiratory Depth Normal 07/27/19 08:31 Respiratory Pattern Normal 07/27/19 08:31 Blood Pressure 134/83 07/27/19 15:35 Blood Pressure Mean 94 07/26/19 13:59 Blood Pressure Position Supine 07/26/19 09:40 Pulse Oximetry 94 L 07/27/19 15:35 Oxygen Delivery Method Room Air 07/27/19 15:35 Oxygen Flow Rate 0 07/27/19 15:35 Pain Level 0 07/27/19 15:35 Comment 07/23/19 16:00 Intake & Output 07/26/19 07/27/19 07/27/19 23:59 11:59 23:59 Intake Total 925 / 2045.625 950 / 2280 1330 / 2280 Output Total 800 / 2100 1500 / 2150 650 / 2150 Balance 125 / -54.375 -550 / 130 680 / 130 Weight 84 kg Intake: IV 325 / 485.625 110 / 110 Oral 600 / 1560 840 / 2170 1330 / 2170 Output: Urine 800 / 2100 1500 / 2150 650 / 2150 Other: Urine Color Yellow Pale Yellow Yellow Urine Appearance Clear Clear Clear Urine Odor Normal Normal Stool Size Moderate Moderate Stool Characteristics Soft Soft Formed Liquid Liquid Voiding Methods Bedside Commode Toilet Toilet Laboratory Results WBC 11.86 k/cumm (4.4-10.8) H 07/27/19 07:05 RBC 5.75 m/cumm (4.00-5.20) H 07/27/19 07:05 Hgb 16.9 g/dL (12.0-15.5) H 07/27/19 07:05 Hct 49.3 % (36.0-46.0) H 07/27/19 07:05 MCV 85.7 fL (80-95) 07/27/19 07:05 MCH 29.4 pg (27.0-33.0) 07/27/19 07:05 MCHC 34.3 g/dL (32.0-36.0) 07/27/19 07:05 RDW 14.0 % (11.7-14.6) 07/27/19 07:05 Plt Count 257 x1000/uL (130-400) 07/27/19 07:05 MPV 10.7 fL (8.0-11.0) 07/27/19 07:05 Immature Gran % See Differential 07/27/19 07:05 Neutrophils % 73.0 07/27/19 07:05 Band Neutrophils % 0.0 % 07/26/19 06:45 Lymphocytes % 13.0 07/27/19 07:05 Atypical Lymphs % 5 07/27/19 07:05 Monocytes % 7.0 07/27/19 07:05 Eosinophils % 0.0 07/27/19 07:05 Basophils % 0.0 07/27/19 07:05 Metamyelocytes % 0.0 % 07/27/19 07:05 Myelocytes % 2.0 % 07/27/19 07:05 Absolute Neutrophils 8.66 k/cumm (1.2-6.7) H 07/27/19 07:05 Absolute Lymphocytes 2.13 k/cumm (1.2-3.4) 07/27/19 07:05 Absolute Monocytes 0.83 k/cumm (0.11-0.7) H 07/27/19 07:05 Absolute Eosinophils 0.00 k/cumm (0.0-0.7) 07/27/19 07:05 Absolute Basophils 0.00 k/cumm (0.0-0.2) 07/27/19 07:05 Differential Comment Manual differential 07/27/19 07:05 RBC Morphology Normal 07/27/19 07:05 Polychromasia Present 07/26/19 06:45 Anisocytosis 1+ 07/26/19 06:45 Sodium 140 mmol/L (136-145) 07/27/19 07:05 Potassium 3.8 mmol/L (3.5-5.1) D 07/27/19 07:05 Chloride 98 mmol/L (98-107) 07/27/19 07:05 Carbon Dioxide 35.0 mmol/L (21.0-32.0) H 07/27/19 07:05 Anion Gap 7.0 mmol/L (3-11) 07/27/19 07:05 BUN 45 mg/dL (7-18) H 07/27/19 07:05 Creatinine 1.74 mg/dL (0.55-1.02) H 07/27/19 07:05 Estimated GFR/1.73 m2 29.10 (mL/min/1.73m2) 07/27/19 07:05 Glucose 196 mg/dL (74-106) H D 07/27/19 07:05 Lactate 1.8 mmol/L (0.6-1.4) H 07/25/19 06:10 Calcium 8.7 mg/dL (8.5-10.1) 07/27/19 07:05 Magnesium 2.0 mg/dL (1.8-2.4) 07/27/19 07:05 Total Bilirubin 1.3 mg/dL (0.2-1.0) H 07/25/19 06:10 Conjugated Bilirubin 0.37 mg/dL (0.00-0.20) H 07/25/19 06:10 AST 29 U/L (15-37) 07/25/19 06:10 ALT 35 U/L (14-59) 07/25/19 06:10 Alkaline Phosphatase 50 U/L (46-116) 07/25/19 06:10 Troponin I < 0.05 ng/Ml (<0.06) 07/23/19 11:53 C-Reactive Protein 1.29 mg/dL (0.0-0.3) H 07/27/19 07:05 NT-Pro-B Natriuret Pep 4273 pg/mL (<300) H 07/22/19 11:30 Total Protein 6.8 g/dL (6.4-8.2) 07/25/19 06:10 Albumin 3.2 g/dL (3.4-5.0) L 07/25/19 06:10 Procalcitonin 0.1 ng/mL 07/26/19 06:45 TSH 0.33 uIU/mL (0.36-3.74) L 07/23/19 06:14 Free T4 1.25 ng/dL (0.76-1.46) 07/23/19 06:14 Urine Color Yellow (Yellow) 07/22/19 20:25 Urine Clarity Sl cloudy (Clear) 07/22/19 20:25 Urine pH 5.5 (5-8) 07/22/19 20:25 Ur Specific [place] 1.020 (1.005-1.025) 07/22/19 20:25 Urine Protein 30 mg/dL (Negative) H 07/22/19 20:25 Urine Ketones Negative mg/dL (Negative) 07/22/19 20:25 Urine Blood Large (Negative) H 07/22/19 20:25 Urine Nitrite Negative (Negative) 07/22/19 20:25 Urine Bilirubin Negative (Negative) 07/22/19 20:25 Urine Urobilinogen 0.2 EU/dL (Up TO 0.2) 07/22/19 20:25 Ur Leukocyte Esterase Negative (Negative) 07/22/19 20:25 Urine RBC >50 HPF (0-2) H 07/22/19 20:25 Urine WBC 5-10 HPF (0-5) 07/22/19 20:25 Ur Epithelial Cells Few HPF (Negative) 07/22/19 20:25 Urine Crystals Few uric acid HPF (Negative) 07/22/19 20:25 Urine Bacteria Few HPF (Negative) 07/22/19 20:25 Urine Mucus Negative (Negative) 07/22/19 20:25 Urine Other Few transitional (Negative) 07/22/19 20:25 Ur Culture Indicated? C&s done as ordered 07/22/19 20:25 Urine Glucose Negative mg/dL (Negative) 07/22/19 20:25
[2019-07-28] VITALS (11 sets, daily range): BP systolic 114–168; BP diastolic 79–96; PULSE 56–89; RESP 16–18; TEMP 35.8–36.8; O2SAT 95–96
[2019-07-28] MEDS: Normal Saline Flush 10 ML SYR IVP ×3 (02:31→19:45)
[2019-07-28] MEDS: PIPERACILLIN/TAZO 3.375 GM in Normal Saline 50 ML IVPB ×4 (02:32→19:45)
[2019-07-28] MEDS: dilTIAZem 30 MG TAB 90 MG PO ×3 (02:36→14:27)
[2019-07-28] MEDS: Aspirin 325 MG TAB PO (05:57)
[2019-07-28] MEDS: Metoprolol 12.5 MG TAB 25 MG PO (05:58)
[2019-07-28 07:19] LABS: Abs Immature Grans 0.28 k/cumm (0.0-0.09); Absolute Basophil Count 0.02 k/cumm (0.0-0.2); Absolute Eosinophil Count 0.07 k/cumm (0.0-0.7); Absolute Lymphocyte Count 1.65 k/cumm (1.2-3.4); Absolute Monocyte Count 1.24 k/cumm (0.11-0.7); Absolute Neutrophil Count 7.27 k/cumm (1.2-6.7); Basophils % 0.2; Eosinophils % 0.7; HCT 49.1 % (36.0-46.0); HGB 16.8 g/dL (12.0-15.5); Immature Grans % 2.7 %; Lymphocytes % 15.7; Mean Corp. HGB Concentration 34.2 g/dL (32.0-36.0); Mean Corpuscular Hemoglobin 29.4 pg (27.0-33.0); Mean Corpuscular Volume 85.8 fL (80-95); Mean Platelet Volume 10.9 fL (8.0-11.0); Monocytes % 11.8; Neutrophils % 68.9; Platelet Count 287 x1000/uL (130-400); RBC 5.72 m/cumm (4.00-5.20); RBC Distribution Width 13.9 % (11.7-14.6); White Blood Cell Count 10.53 k/cumm (4.4-10.8)
[2019-07-28 07:32] LABS: Anion Gap 8.9 mmol/L (3-11); BUN 51 mg/dL (7-18); CO2 32.1 mmol/L (21.0-32.0); CREATININE 1.77 mg/dL (0.55-1.02); Calcium 8.9 mg/dL (8.5-10.1); Chloride 98 mmol/L (98-107); Estimated GFR 28.53 (mL/min/1.73m2); Glucose 191 mg/dL (74-106); Magnesium 1.9 mg/dL (1.8-2.4); Potassium 3.4 mmol/L (3.5-5.1); Sodium 139 mmol/L (136-145)
--- NOTE | 2019-07-28 09:32 | PT.INTREAT ---
Date of service: 07/28/19 Time of Service: 09:15 PT Notes Visit Reasons: SEPTIC SHOCK, RAPD AFIB, ACUTE HYPOXIA, ?ENDOMETRI Inpatient Physical Therapy Treatment Note [facility] Date: 07/28/19 PRECAUTIONS:Standard SUBJECTIVE: Pt reports that she felt she was able to get more sleep last night and feels slightly better but not perfect. OBJECTIVE: Sit-stand: I Stand-sit: I GAIT Assistive Device: None Weight bearing: Full Assist: SBA Distance: Small loop approx 150ft THEREX: Pt completed seated UE and LE strengthening ther ex as per flow sheet. Pt did fatigue fairly quickly and wasn't able to complete sit to stands. ASSESSMENT: Pt tolerated today's session fairly well. Pt did have some noticeable SOB but did not feel she was SOB. Pt did have some very slight deviations to her gait but self corrected. PLAN: Cont as per PT POC as per barbie. TREATMENT CODE/TIME: 9:15-9:30 (15)
[2019-07-28] MEDS: Insulin Aspart 300 UNITS/3 ML PEN SC ×4 (09:55→21:30)
[2019-07-28] MEDS: Cholecalciferol (Vitamin D3) 1,000 UNIT TAB 1000 UNITS PO (09:56)
[2019-07-28] MEDS: Apixaban 5 MG TAB PO ×2 (09:56→19:45)
[2019-07-28] MEDS: predniSONE 20 MG TAB 40 MG PO (09:56)
[2019-07-28] MEDS: Calcium Carbonate 1.25 GM TAB 2.5 GM PO (09:57)
[2019-07-28] MEDS: Furosemide 40 MG TAB PO (09:57)
[2019-07-28] MEDS: Potassium Chloride 20 MEQ TABCR 40 MEQ PO (10:02)
[2019-07-28] MEDS: Pantoprazole 40 MG VIAL IVP (14:25)
--- NOTE | 2019-07-28 14:53 | W.PM.PROGNOT ---
Date of Service Date of service: 07/28/19 Time of Service: 14:53 Assessment and Plan Assessment and plan (1) Septic shock: Start date: 07/28/19 Start time: 14:59 Status: Resolved Assessment and plan: Improving. CRP down to 1.29 from 6.12 Endometritis ruled out, per PROJECT DEVELOPMENT DIRECTOR. BP's normalized. Inflammatory markers improved. Continue zosyn (day 01/21). Blood cultures with NGTD. Sputum C&S with normal cesar. Urine C&S with mixed gram positive cesar. Did not require pressors - fluid, antibiotic, and steroid responsive. (2) Chronic atrial fibrillation with rapid ventricular response: Start date: 07/28/19 Start time: 15:02 Status: Acute Assessment and plan: Diltiazem 180 BID, with Toprolol 50, HR did drop to 30's and there were a few pauses. Monitor overnight. Holter as an outpatient upon discharge BPs seem to be tolerating. Continue apixaban. (3) Pneumonia: Start date: 07/28/19 Start time: 15:06 Status: Acute Assessment and plan: Feeling better, improving symptoms. Continue zosyn day 01/21. Taper steroids. CXR does not show an obvious infiltrate. (4) Endometritis: Start date: 07/28/19 Start time: 15:18 Status: Ruled-out Assessment and plan: PROJECT DEVELOPMENT DIRECTOR on board. Doing well off flagyl. US pelvic shows markedly thickened heterogenous endometrium. Uterine bx negative for malignancy. Will need outpatient D&C. (5) Acute respiratory failure with hypoxia: Start date: 07/28/19 Start time: 15:18 Status: Resolved Assessment and plan: Due to PNA - as above (6) Moderate pulmonary arterial systolic hypertension: Start date: 07/28/19 Start time: 15:18 Status: Chronic Assessment and plan: Continue PO lasix, decrease lasix dose from BID to daily as Creatinine is elevated from1.74 to 1.77, has been increasing over last couple of days. Appears baseline is 1.2-1.4. Patients weight is 84 kg. Reviewing this appears to be lowest weight while in the hospital. Repeat BMP in am, monitor wts and volume status. (7) Acute kidney injury superimposed on chronic kidney disease: Start date: 07/28/19 Start time: 15:22 Status: Acute Assessment and plan: Cr slightly worse today. lasix decreased to daily from BID. US abdomen negative for obstructive nephrolithiasis/hydronephrosis. (8) Hypokalemia: Start date: 07/28/19 Start time: 15:24 Status: Resolved Assessment and plan: K+-3.4. Given a dose of PO lasix repeat BMP in am. (9) DVT prophylaxis: Start date: 07/28/19 Start time: 15:24 Status: Acute Assessment and plan: On therapeutic eliquis (10) Discharge planning issues: Start date: 07/28/19 Start time: 15:24 Status: Acute Assessment and plan: DNR/DNI Possible discharge home tomorrow with a holter monitor Subjective Subjective Patient reports: no new complaints Interval history since last seen: Mrs. Davis slept better last night. She was not ready for discharge today, she felt she was SOB when ambulating. Exercise oximetry pending, she was not able to work with RT at this time as she felt too tired. HR 30's overnight with pauses, on 360 cardizem with 125 of metoprolol. Will trial long acting cardizem 180 BID with BB long acting in am. Discharge tomorrow with Holter monitor. Exam Narrative Exam Narrative: General: Very pleasant middle-aged female, sitting up in a chair, looks much better HEENT: EOMI, MMM Heart: irregularly irregular rhythm, no m/r/g Lungs: lsc with minimal crackles at B bases Abdomen: soft, nontender, nondistended Extremities: no e/c/c BLE's, B feet warm, +1 pedal pulses Objective Objective Clinical Data: Abnormal lab results 07/28/19 07/28/19 Range/Units 06:39 06:39 RBC 5.72 H (4.00-5.20) m/cumm Hgb 16.8 H (12.0-15.5) g/dL Hct 49.1 H (36.0-46.0) % Absolute Neutrophils 7.27 H (1.2-6.7) k/cumm Absolute Monocytes 1.24 H (0.11-0.7) k/cumm Potassium 3.4 L (3.5-5.1) mmol/L Carbon Dioxide 32.1 H (21.0-32.0) mmol/L BUN 51 H (7-18) mg/dL Creatinine 1.77 H (0.55-1.02) mg/dL Glucose 191 H (74-106) mg/dL Vital Signs Temperature 36.5 C 07/28/19 12:00 Temperature Source Tympanic 07/28/19 12:00 Pulse 60 07/28/19 12:00 Pulse Rhythm Regular 07/28/19 13:29 Pulse 118 H 07/26/19 13:00 Respiratory Rate 18 07/28/19 12:00 Respiratory Effort Non-Labored 07/28/19 13:29 Respiratory Depth Normal 07/28/19 13:29 Respiratory Pattern Normal 07/28/19 13:29 Blood Pressure 130/86 07/28/19 12:00 Blood Pressure Mean 94 07/26/19 13:59 Blood Pressure Position Supine 07/26/19 09:40 Pulse Oximetry 96 07/28/19 12:00 Oxygen Delivery Method Room Air 07/28/19 12:00 Oxygen Flow Rate 0 07/28/19 12:00 Pain Level 0 07/28/19 12:00 Comment 07/23/19 16:00 Intake & Output 07/27/19 07/28/19 07/28/19 23:59 11:59 23:59 Intake Total 1440 / 2390 400 / 400 Output Total 1650 / 3150 850 / 850 Balance -210 / -760 -450 / -450 Weight 84 kg Intake: IV 110 / 220 100 / 100 Oral 1330 / 2170 300 / 300 Output: Urine 1650 / 3150 850 / 850 Other: Urine Color Yellow Yellow Urine Appearance Clear Clear Clear Urine Odor Normal None Stool Size Moderate Large Stool Characteristics Soft Soft Liquid Voiding Methods Toilet Toilet Laboratory Results WBC 10.53 k/cumm (4.4-10.8) 07/28/19 06:39 RBC 5.72 m/cumm (4.00-5.20) H 07/28/19 06:39 Hgb 16.8 g/dL (12.0-15.5) H 07/28/19 06:39 Hct 49.1 % (36.0-46.0) H 07/28/19 06:39 MCV 85.8 fL (80-95) 07/28/19 06:39 MCH 29.4 pg (27.0-33.0) 07/28/19 06:39 MCHC 34.2 g/dL (32.0-36.0) 07/28/19 06:39 RDW 13.9 % (11.7-14.6) 07/28/19 06:39 Plt Count 287 x1000/uL (130-400) 07/28/19 06:39 MPV 10.9 fL (8.0-11.0) 07/28/19 06:39 Immature Gran % 2.7 % 07/28/19 06:39 Neutrophils % 68.9 07/28/19 06:39 Band Neutrophils % 0.0 % 07/26/19 06:45 Lymphocytes % 15.7 07/28/19 06:39 Atypical Lymphs % 5 07/27/19 07:05 Monocytes % 11.8 07/28/19 06:39 Eosinophils % 0.7 07/28/19 06:39 Basophils % 0.2 07/28/19 06:39 Metamyelocytes % 0.0 % 07/27/19 07:05 Myelocytes % 2.0 % 07/27/19 07:05 Absolute Neutrophils 7.27 k/cumm (1.2-6.7) H 07/28/19 06:39 Absolute Lymphocytes 1.65 k/cumm (1.2-3.4) 07/28/19 06:39 Absolute Monocytes 1.24 k/cumm (0.11-0.7) H 07/28/19 06:39 Absolute Eosinophils 0.07 k/cumm (0.0-0.7) 07/28/19 06:39 Absolute Basophils 0.02 k/cumm (0.0-0.2) 07/28/19 06:39 Differential Comment Manual differential 07/27/19 07:05 RBC Morphology Normal 07/27/19 07:05 Polychromasia Present 07/26/19 06:45 Anisocytosis 1+ 07/26/19 06:45 Sodium 139 mmol/L (136-145) 07/28/19 06:39 Potassium 3.4 mmol/L (3.5-5.1) L 07/28/19 06:39 Chloride 98 mmol/L (98-107) 07/28/19 06:39 Carbon Dioxide 32.1 mmol/L (21.0-32.0) H 07/28/19 06:39 Anion Gap 8.9 mmol/L (3-11) 07/28/19 06:39 BUN 51 mg/dL (7-18) H 07/28/19 06:39 Creatinine 1.77 mg/dL (0.55-1.02) H 07/28/19 06:39 Estimated GFR/1.73 m2 28.53 (mL/min/1.73m2) 07/28/19 06:39 Glucose 191 mg/dL (74-106) H 07/28/19 06:39 Lactate 1.8 mmol/L (0.6-1.4) H 07/25/19 06:10 Calcium 8.9 mg/dL (8.5-10.1) 07/28/19 06:39 Magnesium 1.9 mg/dL (1.8-2.4) 07/28/19 06:39 Total Bilirubin 1.3 mg/dL (0.2-1.0) H 07/25/19 06:10 Conjugated Bilirubin 0.37 mg/dL (0.00-0.20) H 07/25/19 06:10 AST 29 U/L (15-37) 07/25/19 06:10 ALT 35 U/L (14-59) 07/25/19 06:10 Alkaline Phosphatase 50 U/L (46-116) 07/25/19 06:10 Troponin I < 0.05 ng/Ml (<0.06) 07/23/19 11:53 C-Reactive Protein 1.29 mg/dL (0.0-0.3) H 07/27/19 07:05 NT-Pro-B Natriuret Pep 4273 pg/mL (<300) H 07/22/19 11:30 Total Protein 6.8 g/dL (6.4-8.2) 07/25/19 06:10 Albumin 3.2 g/dL (3.4-5.0) L 07/25/19 06:10 Procalcitonin 0.1 ng/mL 07/26/19 06:45 TSH 0.33 uIU/mL (0.36-3.74) L 07/23/19 06:14 Free T4 1.25 ng/dL (0.76-1.46) 07/23/19 06:14 Urine Color Yellow (Yellow) 07/22/19 20:25 Urine Clarity Sl cloudy (Clear) 07/22/19 20:25 Urine pH 5.5 (5-8) 07/22/19 20:25 Ur Specific [place] 1.020 (1.005-1.025) 07/22/19 20:25 Urine Protein 30 mg/dL (Negative) H 07/22/19 20:25 Urine Ketones Negative mg/dL (Negative) 07/22/19 20:25 Urine Blood Large (Negative) H 07/22/19 20:25 Urine Nitrite Negative (Negative) 07/22/19 20:25 Urine Bilirubin Negative (Negative) 07/22/19 20:25 Urine Urobilinogen 0.2 EU/dL (Up TO 0.2) 07/22/19 20:25 Ur Leukocyte Esterase Negative (Negative) 07/22/19 20:25 Urine RBC >50 HPF (0-2) H 07/22/19 20:25 Urine WBC 5-10 HPF (0-5) 07/22/19 20:25 Ur Epithelial Cells Few HPF (Negative) 07/22/19 20:25 Urine Crystals Few uric acid HPF (Negative) 07/22/19 20:25 Urine Bacteria Few HPF (Negative) 07/22/19 20:25 Urine Mucus Negative (Negative) 07/22/19 20:25 Urine Other Few transitional (Negative) 07/22/19 20:25 Ur Culture Indicated? C&s done as ordered 07/22/19 20 Urine Glucose Negative mg/dL (Negative) 07/22/19 20:25
--- NOTE | 2019-07-28 17:39 | PDOC.CMPRO ---
Care Management Progress Note S/O: Edwige remains pleasant in interaction. No change to overall plan. CM continues to follow. A: Edwige is a 68 year old woman admitted on 07/22/2019 with septic shock P: Edwige will discharge home with no new services. She will transport with family and follow up with her PCP and discharge plan of care. She may have friends staying with her, or may stay with her children. CM will continue to support patient, family and discharge plans.
[2019-07-28] MEDS: dilTIAZem CD 180 MG CAPCR PO (19:45)
[2019-07-29] VITALS (8 sets, daily range): BP systolic 135–154; BP diastolic 75–95; PULSE 60–111; RESP 18–22; TEMP 36.4–37; O2SAT 93–97
[2019-07-29] MEDS: PIPERACILLIN/TAZO 3.375 GM in Normal Saline 50 ML IVPB (01:59)
[2019-07-29] MEDS: Aspirin 325 MG TAB PO (05:31)
[2019-07-29 07:13] LABS: Abs Immature Grans 0.31 k/cumm (0.0-0.09); Absolute Basophil Count 0.03 k/cumm (0.0-0.2); Absolute Eosinophil Count 0.12 k/cumm (0.0-0.7); Absolute Neutrophil Count 10.26 k/cumm (1.2-6.7); Basophils % 0.2; Eosinophils % 0.9; HGB 17.8 g/dL (12.0-15.5); Immature Grans % 2.3 %; Lymphocytes % 10.6; Mean Corp. HGB Concentration 34.9 g/dL (32.0-36.0); Mean Corpuscular Hemoglobin 29.6 pg (27.0-33.0); Mean Corpuscular Volume 84.7 fL (80-95); Mean Platelet Volume 10.8 fL (8.0-11.0); Monocytes % 9.7; Neutrophils % 76.3; Platelet Count 320 x1000/uL (130-400); RBC 6.02 m/cumm (4.00-5.20); RBC Distribution Width 13.9 % (11.7-14.6); White Blood Cell Count 13.45 k/cumm (4.4-10.8)
[2019-07-29 07:24] LABS: Absolute Lymphocyte Count 1.43 k/cumm (1.2-3.4); Anion Gap 10.1 mmol/L (3-11); BUN 54 mg/dL (7-18); C-Reactive Protein 1.94 mg/dL (0.0-0.3); CO2 29.9 mmol/L (21.0-32.0); CREATININE 1.86 mg/dL (0.55-1.02); Calcium 9.2 mg/dL (8.5-10.1); Chloride 99 mmol/L (98-107); Estimated GFR 26.94 (mL/min/1.73m2); Glucose 210 mg/dL (74-106); Magnesium 2.2 mg/dL (1.8-2.4); Potassium 3.8 mmol/L (3.5-5.1); Sodium 139 mmol/L (136-145)
--- NOTE | 2019-07-29 08:55 | PDOC.CMPRO ---
Care Management Progress Note S/O: Edwige remains pleasant in interaction. Per provider her lab values continue to require close monitoring and medication adjustments. She will likely have additional work up tomorrow to confirm source of infection. No change to overall plan. CM continues to follow. A: Edwige is a 68 year old woman admitted on 07/22/2019 with septic shock P: Edwige will discharge home with no new services, per provider Edwige may be ready for discharge as soon as tomorrow. She will transport with family and follow up with her PCP and discharge plan of care. She may have friends staying with her, or may stay with her children. CM will continue to support patient, family and discharge plans.
[2019-07-29 08:58] LABS: Procalcitonin < 0.1 ng/mL
[2019-07-29] MEDS: Insulin Aspart 300 UNITS/3 ML PEN SC ×4 (09:21→21:57)
[2019-07-29] MEDS: Apixaban 5 MG TAB PO ×2 (09:21→20:14)
[2019-07-29] MEDS: dilTIAZem CD 180 MG CAPCR PO ×2 (09:21→20:14)
[2019-07-29] MEDS: Calcium Carbonate 1.25 GM TAB 2.5 GM PO (09:22)
[2019-07-29] MEDS: Furosemide 40 MG TAB PO (09:22)
[2019-07-29] MEDS: Metoprolol CR 50 MG TABCR PO (09:22)
[2019-07-29] MEDS: Cholecalciferol (Vitamin D3) 1,000 UNIT TAB 1000 UNITS PO (09:22)
[2019-07-29] MEDS: predniSONE 20 MG TAB 40 MG PO (09:22)
[2019-07-29] MEDS: Normal Saline 1,000 ML 100 ML IV (09:38)
--- NOTE | 2019-07-29 10:09 | PT.INTREAT ---
Date of service: 07/29/19 Time of Service: 08:55 PT Notes Visit Reasons: SEPTIC SHOCK, RAPD AFIB, ACUTE HYPOXIA, ?ENDOMETRI Inpatient Physical Therapy Treatment Note [facility] Date: 07/29/19 PRECAUTIONS: Standard SUBJECTIVE: Pt reports that her AFib was more bothersome this am. OBJECTIVE: Sit-stand: I Stand-sit: I GAIT Assistive Device: No device Weight bearing: Full Assist: SBA Distance: 150ft x2 with seated rest in between. THEREX: Pt completed UE and LE ther ex as per flow sheet while in the seated position. ASSESSMENT: Pt tolerated more walking today and seemed to experience less SOB. PLAN: Cont as per PT POC. TREATMENT CODE/TIME: 20 TA
[2019-07-29] MEDS: Metoprolol CR 25 MG TABCR 12.5 MG PO (11:35)
--- NOTE | 2019-07-29 12:09 | W.PM.PROGNOT ---
Date of Service Date of service: 07/29/19 Time of Service: 12:09 Assessment and Plan Assessment and plan (1) Septic shock: Start date: 07/29/19 Start time: 12:11 Status: Resolved Assessment and plan: Improving. CRP at 1.29 yesterday up to 1.94 today. Will repeat in am. Clinically looking better. Leukocytosis however patient is on steroid taper. Finished zosyn. Will keep one more night and repeat labs in am. Also appears dry, see below. Endometritis ruled out, per CHILD CARE ASSOCIATE. BP's normalized. Blood cultures with NGTD. Sputum C&S with normal cesar. Urine C&S with mixed gram positive cesar. Did not require pressors - fluid, antibiotic, and steroid responsive. (2) Acute kidney injury superimposed on chronic kidney disease: Start date: 07/29/19 Start time: 12:21 Status: Acute Assessment and plan: Cr slightly worse today. Likely hypovolemic lasix decreased to daily from BID. Will give touch fluid for hypovolemia, evidenced by wt and elevated H/H US abdomen negative for obstructive nephrolithiasis/hydronephrosis. (3) Chronic atrial fibrillation with rapid ventricular response: Start date: 07/29/19 Start time: 12:13 Status: Acute Assessment and plan: Diltiazem 180 BID, with Toprolol 50, HR did not drop below 50 overnight, Cardiology felt that a HR up to 110 was appropriate for patient; however HR was in 110-120's not sustained with activity. Patient toprolol dose increased to 12.5, BP tolerating. Monitor on teley, possible d/c tomorrow. Holter as an outpatient upon discharge Continue apixaban. (4) Pneumonia: Start date: 07/29/19 Start time: 12:16 Status: Acute Assessment and plan: Improved. Feeling bettter. Finished zosyn 01/21. Continue to taper steroids. CRP increase today recheck in am. Clinically patient is improving. (5) Endometritis: Start date: 07/29/19 Start time: 12:17 Status: Ruled-out Assessment and plan: CHILD CARE ASSOCIATE on board. Doing well off flagyl. US pelvic shows markedly thickened heterogenous endometrium. Uterine bx negative for malignancy. Will need outpatient D&C. (6) Acute respiratory failure with hypoxia: Start date: 01/12/20 Start time: 12:17 Status: Resolved Assessment and plan: Improved exercise oximetry was 94% on RA. Due to PNA - as above (7) Moderate pulmonary arterial systolic hypertension: Start date: 07/29/19 Start time: 12:18 Status: Chronic Assessment and plan: Cr worse today, up to 1.86, baseline cr appears to be 1.2-1.4. Will give 250 liter bolus over 2 hours and repeat BMP, wt is 83.6 kg. down from 88.5 on admission with baseline appearing to 85, likely dry. Possible d/c home thelma. Continue lasix daily decreased from BID (8) Hypokalemia: Start date: 07/29/19 Start time: 12:22 Status: Resolved Assessment and plan: Resolved. Continue to monitor. (9) DVT prophylaxis: Start date: 07/29/19 Start time: 12: Status: Acute Assessment and plan: On therapeutic eliquis (10) Discharge planning issues: Status: Acute Assessment and plan: DNR/DNI Possible discharge home tomorrow with a holter monitor Above case discussed with Dr. Villareal who is in agreement. Subjective Subjective Patient reports: no new complaints and feels better Interval history since last seen: Overall Mrs. Davis is feeling better. HR overnight did not increase to greater than 99. However today HR in low 100-130's not sustained. Cardiology feels that below 110 is reasonable. Her breathing is better, exercise oximetry was 94%. She denies CP, SOB, N/V/D Exam Narrative Exam Narrative: General: Very pleasant middle-aged female, sitting up in a chair, looks much better HEENT: EOMI, MMM Heart: irregularly irregular rhythm, no m/r/g Lungs: lsc, respirations, even unlabored. Abdomen: soft, nontender, nondistended Extremities: no e/c/c BLE's, B feet warm, +1 pedal pulses Objective Objective Clinical Data: Abnormal lab results 07/29/19 07/29/19 Range/Units 06:35 06:35 WBC 13.45 H (4.4-10.8) k/cumm RBC 6.02 H (4.00-5.20) m/cumm Hgb 17.8 H (12.0-15.5) g/dL Hct 51.0 H (36.0-46.0) % Absolute Neutrophils 10.26 H (1.2-6.7) k/cumm Absolute Monocytes 1.30 H (0.11-0.7) k/cumm BUN 54 H (7-18) mg/dL Creatinine 1.86 H (0.55-1.02) mg/dL Glucose 210 H (74-106) mg/dL C-Reactive Protein 1.94 H (0.0-0.3) mg/dL Vital Signs Temperature 36.4 C L 07/29/19 04:30 Temperature Source Tympanic 07/29/19 04:30 Pulse 99 H 07/29/19 04:30 Pulse Rhythm Irregular 07/29/19 02:49 Pulse 118 H 07/26/19 13:00 Respiratory Rate 20 07/29/19 04:30 Respiratory Effort Non-Labored 07/29/19 02:49 Respiratory Depth Normal 07/29/19 02:49 Respiratory Pattern Normal 07/29/19 02:49 Blood Pressure 135/94 H 07/29/19 04:30 Blood Pressure Mean 94 07/26/19 13:59 Blood Pressure Position Supine 07/26/19 09:40 Pulse Oximetry 94 L 07/29/19 04:30 Oxygen Delivery Method Room Air 07/29/19 04:30 Oxygen Flow Rate 0 07/29/19 04:30 Pain Level 0 07/29/19 04:30 Comment 07/23/19 16:00 Intake & Output 07/28/19 07/29/19 07/29/19 23:59 11:59 23:59 Intake Total 500 / 900 Output Total 400 / 1250 Balance 100 / -350 Weight 83.6 kg Intake: IV 100 / 200 Oral 400 / 700 Output: Urine 400 / 1250 Other: Urine Color Yellow Urine Appearance Clear Clear Urine Odor Normal Voiding Methods Toilet Laboratory Results WBC 13.45 k/cumm (4.4-10.8) H 07/29/19 06:35 RBC 6.02 m/cumm (4.00-5.20) H 07/29/19 06:35 Hgb 17.8 g/dL (12.0-15.5) H 07/29/19 06:35 Hct 51.0 % (36.0-46.0) H 07/29/19 06:35 MCV 84.7 fL (80-95) 07/29/19 06:35 MCH 29.6 pg (27.0-33.0) 07/29/19 06:35 MCHC 34.9 g/dL (32.0-36.0) 07/29/19 06:35 RDW 13.9 % (11.7-14.6) 07/29/19 06:35 Plt Count 320 x1000/uL (130-400) 07/29/19 06:35 MPV 10.8 fL (8.0-11.0) 07/29/19 06:35 Immature Gran % 2.3 % 07/29/19 06:35 Neutrophils % 76.3 07/29/19 06:35 Band Neutrophils % 0.0 % 07/26/19 06:45 Lymphocytes % 10.6 07/29/19 06:35 Atypical Lymphs % 5 07/27/19 07:05 Monocytes % 9.7 07/29/19 06:35 Eosinophils % 0.9 07/29/19 06:35 Basophils % 0.2 07/29/19 06:35 Metamyelocytes % 0.0 % 07/27/19 07:05 Myelocytes % 2.0 % 07/27/19 07:05 Absolute Neutrophils 10.26 k/cumm (1.2-6.7) H 07/29/19 06:35 Absolute Lymphocytes 1.43 k/cumm (1.2-3.4) 07/29/19 06:35 Absolute Monocytes 1.30 k/cumm (0.11-0.7) H 07/29/19 06:35 Absolute Eosinophils 0.12 k/cumm (0.0-0.7) 07/29/19 06:35 Absolute Basophils 0.03 k/cumm (0.0-0.2) 07/29/19 06:35 Differential Comment Manual differential 07/27/19 07:05 RBC Morphology Normal 07/27/19 07:05 Polychromasia Present 07/26/19 06:45 Anisocytosis 1+ 07/26/19 06:45 Sodium 139 mmol/L (136-145) 07/29/19 06:35 Potassium 3.8 mmol/L (3.5-5.1) 07/29/19 06:35 Chloride 99 mmol/L (98-107) 07/29/19 06:35 Carbon Dioxide 29.9 mmol/L (21.0-32.0) 07/29/19 06:35 Anion Gap 10.1 mmol/L (3-11) 07/29/19 06:35 BUN 54 mg/dL (7-18) H 07/29/19 06:35 Creatinine 1.86 mg/dL (0.55-1.02) H 07/29/19 06:35 Estimated GFR/1.73 m2 26.94 (mL/min/1.73m2) 07/29/19 06:35 Glucose 210 mg/dL (74-106) H 07/29/19 06:35 Lactate 1.8 mmol/L (0.6-1.4) H 07/25/19 06:10 Calcium 9.2 mg/dL (8.5-10.1) 07/29/19 06:35 Magnesium 2.2 mg/dL (1.8-2.4) 07/29/19 06:35 Total Bilirubin 1.3 mg/dL (0.2-1.0) H 07/25/19 06:10 Conjugated Bilirubin 0.37 mg/dL (0.00-0.20) H 07/25/19 06:10 AST 29 U/L (15-37) 07/25/19 06:10 ALT 35 U/L (14-59) 07/25/19 06:10 Alkaline Phosphatase 50 U/L (46-116) 07/25/19 06:10 Troponin I < 0.05 ng/Ml (<0.06) 07/23/19 11:53 C-Reactive Protein 1.94 mg/dL (0.0-0.3) H 07/29/19 06:35 NT-Pro-B Natriuret Pep 4273 pg/mL (<300) H 07/22/19 11:30 Total Protein 6.8 g/dL (6.4-8.2) 07/25/19 06:10 Albumin 3.2 g/dL (3.4-5.0) L 07/25/19 06:10 Procalcitonin < 0.1 ng/mL 07/29/19 08:19 TSH 0.33 uIU/mL (0.36-3.74) L 07/23/19 06:14 Free T4 1.25 ng/dL (0.76-1.46) 07/23/19 06:14 Urine Color Yellow (Yellow) 07/22/19 20: Urine Clarity Sl cloudy (Clear) 07/22/19 20: Urine pH 5.5 (5-8) 07/22/19 20:25 Ur Specific [place] 1.020 (1.005-1.025) 07/22/19 20: Urine Protein 30 mg/dL (Negative) H 07/22/19 20:25 Urine Ketones Negative mg/dL (Negative) 07/22/19 20: Urine Blood Large (Negative) H 07/22/19 20:25 Urine Nitrite Negative (Negative) 07/22/19 20: Urine Bilirubin Negative (Negative) 07/22/19 20 Urine Urobilinogen 0.2 EU/dL (Up TO 0.2) 07/22/19 20:25 Ur Leukocyte Esterase Negative (Negative) 07/22/19 20:25 Urine RBC >50 HPF (0-2) H 07/22/19 20:25 Urine WBC 5-10 HPF (0-5) 07/22/19 20:25 Ur Epithelial Cells Few HPF (Negative) 07/22/19 20:25 Urine Crystals Few uric acid HPF (Negative) 07/22/19 20:25 Urine Bacteria Few HPF (Negative) 07/22/19 20:25 Urine Mucus Negative (Negative) 07/22/19 20:25 Urine Other Few transitional (Negative) 07/22/19 20:25 Ur Culture Indicated? C&s done as ordered 07/22/19: Urine Glucose Negative mg/dL (Negative) 07/22/19 2025
[2019-07-29 13:34] LABS: Anion Gap 11.3 mmol/L (3-11); BUN 56 mg/dL (7-18); CO2 26.7 mmol/L (21.0-32.0); CREATININE 2.33 mg/dL (0.55-1.02); Chloride 97 mmol/L (98-107); Estimated GFR 20.77 (mL/min/1.73m2); Glucose 426 mg/dL (74-106); Potassium 4.6 mmol/L (3.5-5.1); Sodium 135 mmol/L (136-145)
[2019-07-29] MEDS: Pantoprazole 40 MG VIAL IVP (14:07)
[2019-07-29] MEDS: Normal Saline Flush 10 ML SYR IVP (14:08)
[2019-07-29] MEDS: Acetaminophen 325 MG TAB PO (22:57)
[2019-07-29] MEDS: Mylanta Suspension 30 ML CUP PO (22:58)
[2019-07-30 04:07] VITALS: BP 139/89; PULSE 71; RESP 17; TEMP 36.7; O2SAT 94
[2019-07-30] MEDS: Aspirin 325 MG TAB PO (05:20)
[2019-07-30 07:05] VITALS: PULSE 70
[2019-07-30 07:13] LABS: Abs Immature Grans 0.24 k/cumm (0.0-0.09); Absolute Basophil Count 0.03 k/cumm (0.0-0.2); Absolute Lymphocyte Count 1.57 k/cumm (1.2-3.4); Absolute Monocyte Count 1.23 k/cumm (0.11-0.7); Basophils % 0.2; Eosinophils % 1.4; HCT 49.7 % (36.0-46.0); HGB 17.3 g/dL (12.0-15.5); Immature Grans % 1.9 %; Lymphocytes % 12.5; Mean Corp. HGB Concentration 34.8 g/dL (32.0-36.0); Mean Corpuscular Hemoglobin 29.7 pg (27.0-33.0); Mean Corpuscular Volume 85.4 fL (80-95); Mean Platelet Volume 10.5 fL (8.0-11.0); Monocytes % 9.8; Neutrophils % 74.2; Platelet Count 274 x1000/uL (130-400); RBC 5.82 m/cumm (4.00-5.20); RBC Distribution Width 13.9 % (11.7-14.6); White Blood Cell Count 12.58 k/cumm (4.4-10.8)
[2019-07-30 07:18] LABS: Absolute Eosinophil Count 0.18 k/cumm (0.0-0.7); Absolute Neutrophil Count 9.33 k/cumm (1.2-6.7)
[2019-07-30 07:27] LABS: Anion Gap 7.3 mmol/L (3-11); BUN 48 mg/dL (7-18); C-Reactive Protein 1.81 mg/dL (0.0-0.3); CO2 31.7 mmol/L (21.0-32.0); CREATININE 1.49 mg/dL (0.55-1.02); Chloride 99 mmol/L (98-107); Glucose 194 mg/dL (74-106); Magnesium 2.2 mg/dL (1.8-2.4); Potassium 3.9 mmol/L (3.5-5.1); Sodium 138 mmol/L (136-145)
[2019-07-30 07:31] LABS: Calcium 9.2 mg/dL (8.5-10.1)
[2019-07-30 07:54] VITALS: BP 123/91; PULSE 82; RESP 18; TEMP 36.4; O2SAT 96
[2019-07-30] MEDS: Apixaban 5 MG TAB PO (09:35)
[2019-07-30] MEDS: Furosemide 40 MG TAB PO (09:35)
[2019-07-30] MEDS: dilTIAZem CD 180 MG CAPCR PO (09:35)
[2019-07-30] MEDS: Insulin Aspart 300 UNITS/3 ML PEN SC ×2 (09:35→13:02)
[2019-07-30] MEDS: Calcium Carbonate 1.25 GM TAB 2.5 GM PO (09:36)
[2019-07-30] MEDS: Cholecalciferol (Vitamin D3) 1,000 UNIT TAB 1000 UNITS PO (09:36)
[2019-07-30] MEDS: Metoprolol CR 25 MG TABCR 12.5 MG PO (09:36)
[2019-07-30] MEDS: predniSONE 20 MG TAB 40 MG PO (09:36)
[2019-07-30] MEDS: Metoprolol CR 50 MG TABCR PO (09:36)
--- NOTE | 2019-07-30 10:15 | DSE_ITS ---
DS: Diagnosis Discharge Diagnosis (1) Septic shock: Start date: 07/30/19 Start time: 10:18 Status: Resolved Asessment and Plan: Resolved. Likely secondary due to PNA. 7 days of zosyn completed. LSC. Slight elevated WBC, patient is on steroid taper. BC with NG after 120 hours. Urine cx with gram positive cesar. (2) Acute kidney injury superimposed on chronic kidney disease: Start date: 07/30/19 Start time: 10:19 Status: Acute Asessment and Plan: Improving baseline appears 1.27-1.48. Acute on chronic likely due to increase in lasix dose. Decreased Lasix to daily, also appeared hypovolemic, 250 bolus with improving cr. baseline by labs today. (3) Chronic atrial fibrillation with rapid ventricular response: Start date: 07/30/19 Start time: 10:21 Status: Acute Asessment and Plan: Sustained AFIB in 130-140's on admission. Cardiology evaluated patient, comfortable with patient HR as high as 110's. Started on PO cardizem 180 BID and initially 150 mg daily of metoprolol with HR as low as 30's overnight, BB titrated for effectiveness. Continues to have elevated HR with movement not sustained. Toprolol 62.5 mg daily with Holter 48 hours and follow up with Cardiology by end of week. (4) Pneumonia: Start date: 07/30/19 Start time: 10:23 Status: Acute Asessment and Plan: resolved. (5) Endometritis: Start date: 07/30/19 Start time: 10:23 Status: Ruled-out Asessment and Plan: Will need d&C as an outpatient. Follow up with F[facility]ITURE DIPPER (6) Acute respiratory failure with hypoxia: Start date: 07/30/19 Start time: 10:24 Status: Resolved Asessment and Plan: Resolved. 93-94% on RA, 93% with exercise. (7) Moderate pulmonary arterial systolic hypertension: Status: Chronic (8) Hypokalemia: Status: Resolved (9) DVT prophylaxis: Status: Acute (10) Discharge planning issues: Status: Acute Discharge Plan Disposition Patient Disposition: HOME Condition: Improving Discharge Details Chief Complaint: Palpitatns Clinical Impression: Atrial fibrillation, Hypotension Reason For Visit: SEPTIC SHOCK, RAPD AFIB, ACUTE HYPOXIA, ?ENDOMETRI Admit Date/Time: 01/05/20 13:36 Admit Provider: Sophia Estrada Attending Provider: Sophia Estrada Primary Care Provider: Esther Verma ED Provider: Beni Stahl Hospital Course Hospital Course: 68 y.o female with PMH of afib ( on eliquis), CAD s/p NV with stents, PHTN, Endometrial biopsy 07/19/2019, who was admitted to [facility] for palpitations, sepsis, fever, cough, and uncontrolled afib. Ms. Davis was initially admitted to ICU for sepsis of unknown origin with hypoxia requiring 4L, hypotension, and elevated HR. Sepsis was originally thought to be due to instrumentation from biopsy on 07/19, she was started on vanco, zosyn and flagyl. Dr. Goodman evaluated her, pelvic u/s was ordered revealing markedly thickened heterogeneous endometrium. Biopsy concluded benign endocervical epithelium, and did not feel that endometritis was source of sepsis, however do want her to follow up as an outpatient for a D&C. CXR 07/22 Blunting in the left costophrenic angle may represent small left pleural effusion or pleural reaction. She was afebrile without leukocytosis, CRP and procalcitonin elevated on admission. 07/22/2019 IVF started for hypotension, she was weaned off oxygen within 24 hours of admission and started on lasix PO 07/23 for volume overload. Cardiology was consulted regarding HR, while in ICU as high as 130's with activity; recommendations goal HR of 110 or less. Cardizem gtt was started in the ICU. While in ICU she was placed on lasix gtt for CHANTE, total diuresis of 5.4 kg during hospitalization. Transferred out of the ICU on 07/26. Transitioned to PO lasix BID with BB and CCB for HR control with titration to 90 mg q6 hours; HR in low 100's, BB was also restarted and titrated up to 150 mg in 24 hours. There was concern for low HR in the 30's overnight on 07/26- with pauses and for this reason BB was backed off, toprolol xl 50 mg initiated with titration to effective dose for HR control under 110. Yesterday Cr increased, CRP increased and HR was up, she appeared hypovolemic, given a 250 bolus of IVF. Today cr improved to baseline, HR is still elevated with activity up to 120's below 100 when resting. She denies CP, SOB, oximetry on RA 94 %. She feels well enough to go home and will be discharged on a holter monitor with follow up for cardiology, PCP and [facility]. She will go home with both CCB and BB and allow cardiology to follow her for tighter control. Home Meds and New Rx's Prescriptions: New furosemide 40 mg Tablet 40 mg PO DAILY Qty: 14 RF: 0 diltiazem HCl 180 mg Capsule,Extended Release 24hr 180 mg PO BID Qty: 14 RF: 0 metoprolol succinate 50 mg Tablet Extended Release 24 Hr 75 mg PO DAILY Qty: 14 RF: 0 prednisone 10 mg tablet 10 mg PO DAILY Qty: 54 RF: 0 Continued Eliquis 5 MG tablet 5 mg PO BID Qty: 60 RF: 11 aspirin 325 MG tablet 325 mg PO DAILY AM RF: 0 nitroglycerin 0.4 MG tablet, sublingual 0.4 mg Sublingual PER PROTOCOL RF: 0 cholecalciferol (vitamin D3) 1,000 UNITS tablet 1,000 units PO DAILY RF: 0 metformin 500 mg Tablet 500 mg PO DAILY RF: 0 hydrochlorothiazide 25 mg Tablet 25 mg PO DAILY RF: 0 calcium carbonate 430 mg calcium (1,000 mg) Tablet,Chewable 1,000 mg PO DAILY RF: 0 lisinopril 10 mg Tablet 10 mg PO DAILY RF: 0 Discontinued metoprolol succinate 50 mg tablet extended release 24 hr 150 mg PO DAILY RF: 0 Discharge Instructions Instructions: Atrial Fibrillation (DC), Holter Monitoring (DC), Sepsis (GEN), Community Acquired Pneumonia (DC) Additional Instructions: Follow up with Cardiology and Primary provider by Tuesday Follow up with Gynecology Weight yourself daily, if you have an increase in wt by 3 pounds call your primary provider and follow instructions. Recommend Repeat chest xray in 6 weeks. Cough is normal for up to 6 weeks following pneumonia Stand Alone Forms: Nursing Discharge Form Referrals: Esther Verma [Primary Care Provider] - 08/03/19 1:45 pm Activity:: Activity as Tolerated Equipment/Supplies:: No Equipment Needed Diet:: Low Sodium Discharge Orders Discharge Orders: Discharge Order (Routine); Ordered 07/30/19 Ordered By: Katey Fajardo DS: Summary Status at Discharge Functional status at discharge: independent ambulation Overall status at discharge: patient is back to baseline Mental Status: mental status grossly normal Speech and Movement: speech and movement normal Mood: congruent mood Affect: normal affect Exam Narrative Exam Narrative: General: Very pleasant middle-aged female, sitting up in a chair, looks much better HEENT: EOMI, MMM Heart: irregularly irregular rhythm, no m/r/g Lungs: lsc, respirations, even unlabored. Abdomen: soft, nontender, nondistended Extremities: no e/c/c BLE's, B feet warm, +1 pedal pulses Psych Mental Status: mental status grossly normal Speech and Movement: speech and movement normal Mood: congruent mood Affect: normal affect DS: Data Vitals/I&O Vitals and I&O: Vital Signs Temperature 36.4 C L 07/30/19 07:54 Temperature Source Tympanic 07/30/19 07:54 Pulse 82 07/30/19 07:54 Pulse Rhythm Irregular 07/29/19 20:50 Pulse 118 H 07/26/19 13:00 Respiratory Rate 18 07/30/19 07:54 Respiratory Effort Non-Labored 07/29/19 20:50 Respiratory Depth Normal 07/29/19 20:50 Respiratory Pattern Normal 07/29/19 20:50 Blood Pressure 123/91 H 07/30/19 07:54 Blood Pressure Mean 94 07/26/19 13:59 Blood Pressure Position Supine 07/26/19 09:40 Pulse Oximetry 96 07/30/19 07:54 Oxygen Delivery Method Room Air 07/30/19 07:54 Oxygen Flow Rate 0 07/30/19 07:54 Pain Level 0 07/30/19 07:54 Comment 07/23/19 16:00 Intake & Output 07/29/19 07/29/19 07/30/19 11:59 23:59 11:59 Intake Total 450 / 1390 940 / 1390 Balance 450 / 1390 940 / 1390 Weight 83.6 kg 83.1 kg Intake: Oral 450 / 1390 940 / 1390 Other: Urine Color Yellow Yellow Urine Appearance Clear Clear Urine Odor None Comment per patient pt denies having any urinary symptoms pt flushed, unable to get urine amount Voiding Methods Toilet Toilet Toilet Data Completed and Pending Completed studies during hospitalization [Text1]: Exam(s) a RAD:XR portable chest AP EXAM: XR PORTABLE CHEST AP INDICATION: SOB, palpitations, Afib. COMPARISON: XR CHEST 2V PA LATERAL from 06/08/2019 TECHNIQUE: 2D digital imaging was performed. FINDINGS: The heart is enlarged. Sternal wires are seen. There are surgical clips posteriorly. The lungs appear clear. IMPRESSION: Cardiomegaly. No acute findings. COMPARISON: CR XR CHEST 2V PA LATERAL 06/08/2019 12:57 PM FINDINGS: Lungs: Unremarkable. No consolidation. Pleural space: Blunting in the left costophrenic angle may represent small left pleural effusion or pleural reaction. Heart/Mediastinum: Stable cardiac silhouette Bones/joints: Median sternotomy IMPRESSION: Blunting in the left costophrenic angle may represent small left pleural effusion or pleural reaction. Exam(s) a US:US pelvis & transvaginal EXAM: US PELVIS AND TRANSVAGINAL CLINICAL HISTORY: HISTORY OF POSTMENOPAUSAL BLEEDING TECHNIQUE: Ultrasound performed using standard protocol. Transabdominal and transvaginal exams were performed. FINDINGS: The transabdominal images are limited by suboptimal bladder distention. The uterus measures 7.9 x 3.6 x 4.4 cm. No fibroids are seen. The endometrial stripe is markedly thickened, measuring up to 1.9 cm. The endometrium is also quite heterogeneous with multiple cystic components. The ovaries were not visualized. There is a cyst on the right kidney measuring 7 cm in greatest dimension. There is no hydronephrosis. IMPRESSION: Markedly thickened heterogeneous endometrium a US:US abdomen EXAM: US ABDOMEN CLINICAL HISTORY: CHANTE, TRANSAMINITIS TECHNIQUE: Ultrasound performed using standard protocol. COMPARISON: No exams were available for comparison FINDINGS: Liver is enlarged and shows mildly increased echogenicity consistent with fatty infiltration. No focal liver lesions or biliary dilatation is seen. The gallbladder is unremarkable, without evidence of stones or wall thickening. There is a 7.2 cm in maximal dimension cyst at the lower pole of the right kidney. There is no hydronephrosis. Two nonobstructing stones were seen in the mid and lower right kidney. There is a 4 millimeter nonobstructing stone in the inferior left kidney. There is no left hydronephrosis. Pancreas is grossly normal. The spleen is normal in size. The aorta is normal in diameter. IMPRESSION: Mild fatty liver. Bilateral nonobstructing renal calculi. Right renal cyst. Exam(s) a RAD:XR portable chest AP EXAM: XR PORTABLE CHEST AP CLINICAL HISTORY: worsening shortness of breath TECHNIQUE: COMPARISON: XR PORTABLE CHEST AP from 07/23/2019 FINDINGS: The heart is not enlarged. Lungs are generally clear. Question slight blunting of costophrenic angle on the left, pleural effusion not excluded. Additional evaluation with PA and lateral chest suggested to evaluate for possible pleural effusion. Labs on day of discharge: Labs from last 24 hours 07/30/19 07/30/19 07/29/19 06:20 06:20 13:05 WBC 12.58 H RBC 5.82 H Hgb 17.3 H Hct 49.7 H MCV 85.4 MCH 29.7 MCHC 34.8 RDW 13.9 Plt Count 274 MPV 10.5 Immature Gran % 1.9 Neutrophils % 74.2 Lymphocytes % 12.5 Monocytes % 9.8 Eosinophils % 1.4 Basophils % 0.2 Absolute Neutrophils 9.33 H Absolute Lymphocytes 1.57 Absolute Monocytes 1.23 H Absolute Eosinophils 0.18 Absolute Basophils 0.03 Sodium 138 135 L Potassium 3.9 4.6 D Chloride 99 97 L Carbon Dioxide 31.7 26.7 Anion Gap 7.3 11.3 H BUN 48 H 56 H Creatinine 1.49 H D 2.33 H Estimated GFR/1.73 m2 34.80 20.77 Glucose 194 H D 426 H D Calcium 9.2 9.0 Magnesium 2.2 C-Reactive Protein 1.81 H [facility] Medical History Atrial fibrillation (Chronic 04/29/14) BMI 33.0-33.9,adult (Chronic) CAD (coronary artery disease) (Chronic) a. drug eluting stents Elevated hematocrit (Chronic) Elevated hemoglobin (Chronic) H/O hypercalcemia (Chronic) H/O hyperparathyroidism (Chronic) a. Surgery to remove adenomas Hypertension (Chronic) Hypertensive CKD (chronic kidney disease) (Chronic) A. probably stage 1 or 2 B. baseline creatinine 1.1 to 1.2 Impaired fasting glucose (Chronic) Metabolic syndrome (Chronic) a. triglycerides greater than 300 and HDL less than 30 Obesity (Chronic) Osteoarthritis (Chronic) Post-menopausal bleeding (Acute) Tobacco abuse (Resolved) a. age [age] with eight year hiatus in there somewhere, appx 1/2 to 1 PPD Surgical History H/O benign neoplasm (Resolved) resected H/O parathyroidectomy (Chronic) s/p 2 stents Hx of cardiac cath (Chronic) Family History Other Heart disease Social History Smoking/Tobacco Use Status: Former Tobacco Use Alcohol Intake: never Drug use: Never Do you feel safe at home: Yes
[2019-07-30 11:08] VITALS: PULSE 97
[2019-07-30 11:16] VITALS: BP 167/88; PULSE 73; RESP 17; TEMP 36.3; O2SAT 95
--- NOTE | 2019-07-30 11:27 | CMDISCH_ITS ---
- If Service Date Differs Date of service: 07/30/19 Time of Service: 11:27 LACE Index Scoring Tool - Questions: Length of Stay (in days): 7 - 13 Acuity (Admit via E.D.?): Yes Comorbidities: Mild Liver/Renal Disease E.D. Visits: 2 - Answers: Total Score: 12 Risk of Readmission: High Risk Care Management Discharge Reason for Hospitalization: septic shock Discharge Plan: Edwige will be discharged home to her daughter's home in [place] with no new services. She will wear a holter monitor for 48 hours and follow up with her PCP, Guest Experience Manager and discharge plan. She willl transport via private vehicle with daughter. Patient/Family Education Needs: Discharge plan, limitations, follow up and Ask Me Three.
--- NOTE | 2019-07-30 14:24 | CHAPLAIN ---
Edwige said she is being discharged later today. She was reading the newspaper and the daughter was with her when I visited. I've continued to visit Edwige during this admission to the ICU and Med/Surg. Each time I visit, I pray with Edwige.
== END 2019-07-30 13:50 | disposition home or self-care (01) | DRG 871 ==
LOC: ER 14:57 → ICU 15:02 → MS 07-26 14:36
PROVIDERS: Nurse Practitioner Family; Admitting Provider Internal Medicine; Emergency Provider Physician Assistant; PCP Nurse Practitioner Family; Visit Provider Family Medicine
DX: A41.9 Sepsis, unspecified organism (principal); J18.9 Pneumonia, unspecified organism; R65.21 Severe sepsis with septic shock; J96.01 Acute respiratory failure with hypoxia; N17.9 Acute kidney failure, unspecified; I48.20 Chronic atrial fibrillation, unspecified; I27.0 Primary pulmonary hypertension; N18.9 Chronic kidney disease, unspecified; Z79.01 Long term (current) use of anticoagulants; E87.6 Hypokalemia; N95.0 Postmenopausal bleeding; Z48.816 Encounter for surgical aftercare following surgery on the genitourinary system; I25.10 Atherosclerotic heart disease of native coronary artery without angina pectoris; I25.2 Old myocardial infarction; Z95.5 Presence of coronary angioplasty implant and graft; R00.1 Bradycardia, unspecified; E86.1 Hypovolemia; R73.03 Prediabetes; Z71.3 Dietary counseling and surveillance; I12.9 Hypertensive chronic kidney disease with stage 1 through stage 4 chronic kidney disease, or unspecified chronic kidney disease; E66.9 Obesity, unspecified; Z68.32 Body mass index [BMI] 32.0-32.9, adult; Z87.891 Personal history of nicotine dependence; R32 Unspecified urinary incontinence
CPT/HCPCS: 36410; 36415; 80048; 80053; 80076; 84145; 85027; 87040; 93005; 94618; 96361; 96374; 97161; 97530; 99222; 99232; 99233; 99239; 99254; 99285; 99291; 71045; 76700; 76830; 76856; 81003; 81015; 83605; 83735; 83880; 84439; 84443; 84484; 85025; 86140; 87070; 87086; 87205; 93010; 93225; J1940; J1941; J2543; J3370; J3490; J7512

== ENCOUNTER → 2019-07-24 11:47 | Outpatient (BNVA) | payer MEDICARE, OTHER, SELFPAY | PROVIDERS: PCP Nurse Practitioner Family; Referring Provider Nurse Practitioner Family; Visit Provider Internal Medicine Cardiovascular Disease | DX: R69 Illness, unspecified (principal) ==

== ENCOUNTER 2019-08-01 16:48 | Emergency (ER) | payer MEDICARE, OTHER, SELFPAY ==
--- NOTE | 2019-08-01 16:53 | W.ED.GENAD ---
Discharge Plan Disposition Patient Disposition: HOME Condition: Fair Discharge Details Chief Complaint: GenMedical Clinical Impression: Acute dehydration Primary Care Provider: Esther Verma ED Provider: Savannah Florez Home Meds and New Rx's Prescriptions: Continued Eliquis 5 MG tablet 5 mg PO BID Qty: 60 RF: 11 aspirin 325 MG tablet 325 mg PO DAILY AM RF: 0 nitroglycerin 0.4 MG tablet, sublingual 0.4 mg Sublingual PER PROTOCOL RF: 0 cholecalciferol (vitamin D3) 1,000 UNITS tablet 1,000 units PO DAILY RF: 0 metformin 500 mg Tablet 500 mg PO DAILY RF: 0 hydrochlorothiazide 25 mg Tablet 25 mg PO DAILY RF: 0 calcium carbonate 430 mg calcium (1,000 mg) Tablet,Chewable 1,000 mg PO DAILY RF: 0 lisinopril 10 mg Tablet 10 mg PO DAILY RF: 0 furosemide 40 mg Tablet 40 mg PO DAILY Qty: 14 RF: 0 diltiazem HCl 180 mg Capsule,Extended Release 24hr 180 mg PO BID Qty: 14 RF: 0 metoprolol succinate 50 mg Tablet Extended Release 24 Hr 75 mg PO DAILY Qty: 14 RF: 0 prednisone 10 mg tablet 10 mg PO DAILY Qty: 54 RF: 0 metformin 500 mg tablet 500 mg PO BID Qty: 10 RF: 0 Discharge Instructions Instructions: Dehydration (ED) Additional Instructions: At this time, your labs are concerning for dehydration. Her white count, hemoglobin are elevated, your kidney function is down. Your glucose is elevated. You need to drink more water. If you are unable to complete this, will need IV hydration as discussed. Blood cultures and urine cultures are pending. You do not have evidence of sepsis at this time. I would like for you to have repeat CBC and CMP blood work completed tomorrow or Tuesday. Please call primary care tomorrow to discuss this and schedule prompt follow-up appointment. If you have recurrence of your symptoms and your left leg, please discuss outpatient ultrasound with your primary care. Exam is reassuring at this time. If you develop fever/chills, difficulty breathing, shortness of breath, chest pain, inability stay hydrated or other new/worsening symptoms please seek care urgently once again. Referrals: Esther Verma [Primary Care Provider] - Discharge Data Discharge Date/Time-TO BE ENTERED AT DEPARTURE: 08/01/19 19:50 Medical Decision Making Patient is a pleasant 60-year-old female with past medical history of hyperkalemia, chronic kidney disease, recent diagnosis of pneumonia, sepsis, CHF, hypomagnesemia, JESICA, atrial fibrillation, hypertension, CAD. She is presenting today at the urging of her primary care for evaluation of possible recurrent sepsis as well as DVT. Patient was discharged 2 days ago after being treated in the hospital from 07/22/19 to 07/30/2019. At that time, she was treated for pneumonia, leading to sepsis with acute kidney injury superimposed on chronic kidney disease. Patient also has an atrial fibrillation with heart rate in the 130s on her presentation was started on beta-meryl. Please see recent discharge note. Patient reports using a by her primary care and follow-up. She reported that time that her foot was cold. The left foot was noted to be cool by primary care and there was concern for possible DVT. Patient is on Eliquis and aspirin has not missed any dosing. She denies any pain in the leg. No altered sensation. Denies any calf or thigh pain. She was having some discomfort that was quite intermittent in the dorsal aspect of the left foot. Patient reports that she is also been fatigued since the time of discharge. She attributes this to not sleeping well while in the hospital. Her daughter is concerned that she has not bounced back more and has had a rather flat affect since being at home. No confusion. No headache. Denies any focal deficits. Is not short of breath, having difficulty breathing. Denies any recurrence of fevers or chills. On exam, patient is resting comfortably. She does appear fatigued but appears nontoxic. Patient is not tachycardic, hypotensive or febrile. There is no evidence at this time for sepsis. Her lungs are clear. She has no calf discomfort. Negative Homans sign. Entirety of the leg is soft and nontender. She is 2+ distal pulses. Both feet are cool but do warm up after being inside from the cold weather. Patient does appear dry on exam. At this point, I do not see evidence of for DVT or sepsis. I did consider d-dimer rule out but feel that this will likely be positive and my clinical suspicion for DVT in this patient, particularly as she has been taking her anticoagulation as prescribed, is very low. Her history and exam does not support this. We did discuss that if her leg was cool associated with a clot it would more likely be arterial and is she is not having any other evidence of arterial clot at this time, I find this very unlikely. In regard to recurrence of sepsis, I also find this unlikely. Patient reports that overall she is feeling well but fatigued. She attributes this to her hospitalization I do agree with this assessment. However, I will perform baseline labs. We did discuss IV and invasive treatment. Patient is persistently asking when she can go home. She does not want to be readmitted. Plan for straight stick for repeat blood work. Labs reviewed. Patient does have persistent leukocytosis. Patient has white count of 15 with absolute neutrophil count of 13. Liver, hemoglobin hematocrit are both also elevated. This could be associated with concentration. BUN is elevated at 63 which correlates with the patient's dehydrated state. She does have chronic kidney disease and for her to have a BUN in the 50s is not unusual. Her creatinine is 2.18 which again, is not unusual for the patient. Glucose is elevated at 373, patient has been elevated like this historically as well. She does not appear to be in DKA at this time. Negative ketones in the urine. Patient does have small amount leukocyte esterase in her urine. She is not having any urologic symptoms at this time will hold off for culture prior to beginning antibiotics. I discussed these findings with the patient. Advised that right now she appears most consistent with acute dehydration. I did discuss his laboratory values with Dr. Madrid. I offered IV hydration to the patient which she declines. The physician and myself did discuss blood cultures. However, will not keep the patient here for these laboratory values. Particular because patient is requesting discharge. She is quite adamant that she is feeling well at this point just fatigue. I discussed with her that some of her fatigue may be associated with her poor sleep habits over recent weeks as we discussed above, alternatively could also be linked to her dehydration. Patient was able to drink multiple glasses of water here. She does report that she has had diminished water intake since being home. She will drink more at this time. She will follow-up tomorrow or Tuesday for repeat blood work to ensure that things are improving with increase hydration. Her lungs being clear, no focal evidence of infection, patient does not appear septic and do not feel that further evaluation is necessary. Patient, her daughter and I discussed this at length. Patient will follow-up with primary care, she will call them tomorrow. She is hoping to have blood work done at [facility] is requesting a primary care send blood work order to that institution. She was given strict return precautions. All of her questions and concerns were addressed. She is in agreement this plan. Blood cultures and urine cultures pending. HPI General Mode of arrival: ambulatory. Date/Time Provider Initiated Documentation: 08/01/19 16:52. Limitations to Documentation: no limitations. Information obtained by: patient, family (Daughter) and RN notes reviewed. History of Present Illness 68 year old F presents to the emergency department with the chief complaint of Advised to come in for evaluation by primary care, ?DVT/sepsis, described as mild (Patient denies any pain, currently feeling well although fatigued), Patient started experiencing this day(s) and it has been now resolved (Patient was recently admitted, discharged 2 days ago). No relieving factors improve symptom(s), No exacerbating factors reported . Patient notes no other symptoms.; denies chest pain, cough, diaphoresis, fever/chills, headaches, loss of appetite, nausea/vomiting, rash, shortness of breath, syncope and weakness. Patient did receive the following treatments prior to arrival, none Related Data Home Medications Medication Instructions Recorded Confirmed aspirin 325 mg PO DAILY AM 11/29/12 08/01/19 nitroglycerin 0.4 mg SUBLINGUAL PER PROTOCOL 11/29/12 08/01/19 cholecalciferol (vitamin D3) 1,000 units PO DAILY 09/26/13 08/01/19 Eliquis 5 mg PO BID #60 tab-cap 10/21/16 08/01/19 calcium carbonate 1,000 mg PO DAILY 12/21/18 08/01/19 hydrochlorothiazide 25 mg PO DAILY 12/21/18 08/01/19 lisinopril 10 mg PO DAILY 12/21/18 08/01/19 metformin 500 mg PO DAILY 12/21/18 08/01/19 diltiazem HCl 180 mg PO BID #14 cap 07/30/19 08/01/19 furosemide 40 mg PO DAILY #14 tab 07/30/19 08/01/19 metformin 500 mg PO BID #10 tab 07/30/19 08/01/19 metoprolol succinate 75 mg PO DAILY #14 tab 07/30/19 08/01/19 prednisone 10 mg PO DAILY #54 tab 07/30/19 08/01/19 Previous Rx's Medication Instructions Recorded diltiazem HCl 180 mg PO BID #14 cap 07/30/19 furosemide 40 mg PO DAILY #14 tab 07/30/19 metformin 500 mg PO BID #10 tab 07/30/19 metoprolol succinate 75 mg PO DAILY #14 tab 07/30/19 prednisone 10 mg PO DAILY #54 tab 07/30/19 Allergies Allergy/AdvReac Type Severity Reaction Status Date / Time iohexol [From Omnipaque 140] Allergy Skin Rash Verified 08/01/19 16:59 Sulfa (Sulfonamide Allergy Verified 08/01/19 16:59 Antibiotics) erythromycin base AdvReac GI Verified 08/01/19 16:59 [Erythromycin Base] metal Allergy Intermediate Skin Rash Uncoded 08/01/19 16:59 General JOSE DE JESUS: 3 Review of Systems Constitutional Constitutional: Reports as per HPI, Denies chills, Reports fatigue, Denies fever(s), Denies headache(s), Denies lethargy and Denies poor appetite Eyes Eyes: Denies change in vision ENT Ears, Nose, Mouth, and Throat: Denies dizziness and Denies headache(s) Cardiovascular Cardiovascular: Reports as per HPI, Denies chest pain at rest, Denies chest pain with activity, Denies dyspnea and Denies dyspnea on exertion Respiratory Respiratory: Reports as per HPI, Denies chest congestion, Denies cough, Denies pain on inspiration, Denies pain with cough, Denies dyspnea, Denies dyspnea on exertion and Denies wheezing Gastrointestinal Gastrointestinal: Reports as per HPI, Denies abdominal pain, Denies diarrhea, Denies nausea and Denies vomiting Musculoskeletal Musculoskeletal: Reports as per HPI and Denies back pain Integumentary/Breasts Skin/Breast: Reports as per HPI and Denies rash Neurologic Neurologic: Reports as per HPI, Denies dizziness and Denies headache(s) Endocrine Endocrine: Reports fatigue Allergic/Immunologic Allergic/Immunologic: Denies wheezing [facility] Medical History Atrial fibrillation (Chronic 04/29/14) BMI 33.0-33.9,adult (Chronic) CAD (coronary artery disease) (Chronic) a. drug eluting stents Elevated hematocrit (Chronic) Elevated hemoglobin (Chronic) H/O hypercalcemia (Chronic) H/O hyperparathyroidism (Chronic) a. Surgery to remove adenomas Hypertension (Chronic) Hypertensive CKD (chronic kidney disease) (Chronic) A. probably stage 1 or 2 B. baseline creatinine 1.1 to 1.2 Impaired fasting glucose (Chronic) Metabolic syndrome (Chronic) a. triglycerides greater than 300 and HDL less than 30 Obesity (Chronic) Osteoarthritis (Chronic) Post-menopausal bleeding (Acute) Tobacco abuse (Resolved) a. age [age] with eight year hiatus in there somewhere, appx 1/2 to 1 PPD Surgical History H/O benign neoplasm (Resolved) resected H/O parathyroidectomy (Chronic) s/p 2 stents Hx of cardiac cath (Chronic) Social History Smoking/Tobacco Use Status: Former Tobacco Use Alcohol Intake: never Drug use: Never Do you feel safe at home: Yes Exam Const General: cooperative, healthy appearing, comfortable, no acute distress and well developed Nutritional Appearance: well nourished and overweight Orientation: alert, awake and oriented x3 HENMT Head: normal to inspection Ears: hearing grossly normal bilaterally Mouth: mucous membranes dry (Patient appears dry) Chest Chest: normal inspection of the chest, normal palpation of entire chest wall and no crepitus Resp Effort & Inspection: normal respiratory effort, able to speak in complete sentences and no respiratory distress Auscultation: clear to auscultation bilaterally, no rales, no rhonchi and no wheezes Cardio Rate: regular rate Rhythm: regular rhythm Heart Sounds: S1 normal and S2 normal GI Inspection: normal to inspection, no edema and non-distended Palpation: soft, no hepatosplenomegaly, not firm, no guarding, not rigid and nontender Auscultation: normal bowel sounds Back/Spine/Pelvis Back: no CVA tenderness Thoracic/Lumbar Spine: thoracic and lumbar spine normal to inspection Skin General skin exam: no rashes or lesions noted Trauma: no lacerations or abrasions Neuro General: alert, awake and oriented x3 Cognition: normal cognition Speech: speech normal Gait: normal gait Extrem General: normal to inspection, normal capillary refill, no pedal edema, no calf tenderness and normal gait Psych Appearance: grossly normal and well kempt Mental Status: mental status grossly normal Speech and Movement: speech and movement normal
[2019-08-01 16:56] VITALS: BP 115/79; PULSE 80; RESP 16; TEMP 36; O2SAT 94
[2019-08-01 17:29] LABS: Bilirubin Negative (Negative); Blood Moderate (Negative); Clarity Clear (Clear); Glucose 100 mg/dL (Negative); Ketones Negative (Negative); Leukocyte Esterase Small (Negative); Nitrite Negative (Negative); Specific Gravity 1.015 (1.005-1.025); Urobilinogen 0.2 EU/dL (Up TO 0.2)
[2019-08-01 17:38] LABS: Bacteria Few HPF (Negative); Crystals Negative HPF (Negative); Epithelial Cells Few HPF (Negative); Mucus Negative (Negative); Other Cells Mod Transitional (Negative)
[2019-08-01 17:39] LABS: C & S Indicated? Yes; Casts 20-50 Hyaline LPF (Negative)
[2019-08-01 18:05] VITALS: RESP 16
[2019-08-01 18:10] LABS: Abs Immature Grans 0.16 k/cumm (0.0-0.09); Absolute Basophil Count 0.02 k/cumm (0.0-0.2); Absolute Eosinophil Count 0.02 k/cumm (0.0-0.7); Absolute Monocyte Count 0.81 k/cumm (0.11-0.7); Basophils % 0.1; Eosinophils % 0.1; HCT 50.7 % (36.0-46.0); HGB 17.4 g/dL (12.0-15.5); Lymphocytes % 6.8; Mean Corp. HGB Concentration 34.3 g/dL (32.0-36.0); Mean Corpuscular Hemoglobin 29.7 pg (27.0-33.0); Mean Corpuscular Volume 86.5 fL (80-95); Monocytes % 5.3; Neutrophils % 86.7; Platelet Count 294 x1000/uL (130-400); RBC 5.86 m/cumm (4.00-5.20); RBC Distribution Width 14.5 % (11.7-14.6); White Blood Cell Count 15.25 k/cumm (4.4-10.8)
[2019-08-01 18:11] LABS: Absolute Lymphocyte Count 1.04 k/cumm (1.2-3.4); Absolute Neutrophil Count 13.22 k/cumm (1.2-6.7)
[2019-08-01 18:19] LABS: ALT 25 U/L (14-59); AST 14 U/L (15-37); Alkaline Phosphatase 69 U/L (46-116); Anion Gap 13.4 mmol/L (3-11); BUN 63 mg/dL (7-18); Bilirubin, Total 1.2 mg/dL (0.2-1.0); CO2 27.6 mmol/L (21.0-32.0); CREATININE 2.18 mg/dL (0.55-1.02); Calcium 9.5 mg/dL (8.5-10.1); Chloride 93 mmol/L (98-107); Estimated GFR 22.43 (mL/min/1.73m2); Glucose 373 mg/dL (74-106); Potassium 4.4 mmol/L (3.5-5.1); Sodium 134 mmol/L (136-145); Total Protein 6.8 g/dL (6.4-8.2)
[2019-08-01 18:50] VITALS: BP 123/72; PULSE 78; RESP 16; TEMP 36; O2SAT 94
[2019-08-01 19:49] VITALS: BP 123/72; PULSE 78; RESP 16; O2SAT 94
[2019-08-04 23:00] VITALS: BP 163/73; PULSE 91; O2SAT 95
[2019-08-04 23:30] VITALS: BP 155/103; PULSE 89; O2SAT 95
[2019-08-05] VITALS: BP 113/58; PULSE 66; RESP 19; O2SAT 96
== END 2019-08-01 19:50 | disposition home or self-care (01) ==
PROVIDERS: Emergency Provider Physician Assistant; PCP Nurse Practitioner Family
DX: E86.0 Dehydration (principal); R53.83 Other fatigue; Z79.01 Long term (current) use of anticoagulants; I48.91 Unspecified atrial fibrillation; N18.9 Chronic kidney disease, unspecified; I10 Essential (primary) hypertension
CPT/HCPCS: 36415; 80053; 87040; 99283; 81003; 81015; 85025; 87086; 93226

== ENCOUNTER 2019-08-01 17:13 | Outpatient (CLI) | payer MEDICARE, OTHER, SELFPAY ==
--- NOTE | 2019-08-02 08:58 | W.HOLTRPT ---
Date of service: 08/02/19 Time of Service: 08:58 Holter Monitor Report Holter Monitor Note: This is a 2-day Holter monitor ordered for the indication of atrial fibrillation. ?The patient was in atrial fibrillation for the entirety of the recording. ?The maximal heart rate was 210 bpm and mean heart rate was 88 bpm. ?There were rare (less than 1%) single ventricular ectopic beats. ?There were 0 episodes of ventricular tachycardia, no pauses greater than 3 seconds and no evidence of high degree heart block. ?Patient triggered events were all associated with atrial fibrillation.
== END 2019-08-01 17:33 ==
PROVIDERS: PCP Nurse Practitioner Family; Visit Provider Nurse Practitioner Family
DX: I48.91 Unspecified atrial fibrillation (principal)
CPT/HCPCS: 93226

== ENCOUNTER 2019-08-02 08:58 | Outpatient (CLI) | payer MEDICARE, OTHER, SELFPAY | END 2019-08-02 09:18 | PROVIDERS: PCP Nurse Practitioner Family; Referring Provider Nurse Practitioner Family; Visit Provider Internal Medicine Cardiovascular Disease | DX: I48.91 Unspecified atrial fibrillation (principal) | CPT/HCPCS: 93227 ==

== ENCOUNTER 2019-08-06 08:39 | Outpatient (CLI) | payer MEDICARE, OTHER, SELFPAY | END 2019-08-06 08:59 | PROVIDERS: PCP Nurse Practitioner Family; Visit Provider Internal Medicine Cardiovascular Disease | DX: I48.20 Chronic atrial fibrillation, unspecified (principal); I10 Essential (primary) hypertension; N17.9 Acute kidney failure, unspecified; I25.10 Atherosclerotic heart disease of native coronary artery without angina pectoris; N18.9 Chronic kidney disease, unspecified | CPT/HCPCS: 99215; 93005; 93010 ==

== ENCOUNTER → 2019-08-06 08:39 | Outpatient (BNVA) | payer MEDICARE, OTHER, SELFPAY | PROVIDERS: PCP Nurse Practitioner Family; Referring Provider Nurse Practitioner Family; Visit Provider Internal Medicine Cardiovascular Disease | DX: I25.10 Atherosclerotic heart disease of native coronary artery without angina pectoris (principal); N17.9 Acute kidney failure, unspecified; N18.9 Chronic kidney disease, unspecified; I48.20 Chronic atrial fibrillation, unspecified | CPT/HCPCS: 99204; 99215 ==

== ENCOUNTER 2019-08-09 07:02 | Outpatient (CLI) | payer MEDICARE, OTHER, SELFPAY | END 2019-08-09 07:22 | PROVIDERS: PCP Nurse Practitioner Family; Visit Provider Internal Medicine Cardiovascular Disease | DX: I48.20 Chronic atrial fibrillation, unspecified (principal) | CPT/HCPCS: 93005; 93010 ==

== ENCOUNTER 2019-08-09 08:43 | Day surgery (SDC) | payer MEDICARE, OTHER, SELFPAY ==
--- NOTE | 2019-08-08 08:54 | NUR.NOTE ---
08/08/2019: Spoke with pt. for pre-op call, pt. stated she was told by Dr. Patle to take all heart medications except Diltiazem. This RN verified with Dr. Patel's RN Sivakumar Reyes, that she is to take Lisinopril, Metoprolol, Furosemide, Aspirin, and Eliquis the DOS. This was verified with YAIMA Salgado from anesthesia. Pt. is aware. Nursing Note:
[2019-08-09] VITALS (13 sets, daily range): BP systolic 110–165; BP diastolic 57–91; PULSE 39–76; RESP 10–17; TEMP 35.8–36.6; O2SAT 92–98
[2019-08-09] MEDS: Normal Saline 1,000 ML 30 ML IV (09:43)
--- NOTE | 2019-08-09 10:15 | DI.US_ITS ---
APPROVED REPORT EXAM: transesophageal echocardiogram Patient Location: OR procedure room [employer] Worker: Shayy Flores RDCS (AE) Rhythm: afib Indications: atrial fibrillation unspecified i48.91. needed prior to cardioversion. Conclusion Left Ventricle : Left ventricular systolic function is borderline. Atria : No evidence of clot. Left atrial appendage with low flow but no thrombus seen. The right atr ium size is normal. Aortic Valve : Aortic valve is not well visualized. Mitral Valve : Mitral valve is not well visualized. There is no mitral valve regurgitation noted. Conclusion: No thrombus seen. We will carry on with cardioversion Wall motion Left Ventricle The left ventricle is normal size. Left ventricular systolic function is borderline. There is normal left ventricular wall thickness. n/a n/a LVEF is 50%. Right Ventricle The right ventricle is normal size. n/a Atria No evidence of clot. Left atrial appendage with low flow but no thrombus seen. The right atrium size is normal. Aortic Valve Aortic valve is not well visualized. n/a n/a Mitral Valve Mitral valve is not well visualized. There is no mitral valve regurgitation noted. Tricuspid Valve Tricuspid valve is not well visualized. n/a Great Vessels n/a Pericardium n/a
--- NOTE | 2019-08-09 11:21 | W.PM.DSUDISC ---
Discharge Plan Disposition Patient Disposition: HOME Condition: Good Discharge Details Reason For Visit: CARDIOVERSION Attending Provider: Han Patel Primary Care Provider: Esther Verma Home Meds and New Rx's Prescriptions: Continued aspirin [Adult Aspirin Regimen] 81 mg tablet,delayed release (DR/EC) 81 mg PO DAILY Qty: 90 RF: 0 metoprolol succinate 50 mg tablet extended release 24 hr 75 mg PO DAILY Qty: 90 RF: 6 furosemide [Lasix] 20 mg tablet 20 mg PO DAILY Qty: 90 RF: 6 Eliquis 5 MG tablet 5 mg PO BID Qty: 60 RF: 11 nitroglycerin 0.4 MG tablet, sublingual 0.4 mg Sublingual PER PROTOCOL RF: 0 cholecalciferol (vitamin D3) 1,000 UNITS tablet 1,000 units PO DAILY RF: 0 calcium carbonate 430 mg calcium (1,000 mg) Tablet,Chewable 1,000 mg PO DAILY RF: 0 lisinopril 10 mg Tablet 10 mg PO DAILY RF: 0 prednisone 10 mg tablet 10 mg PO DAILY Qty: 54 RF: 0 Discontinued diltiazem HCl 180 mg capsule,extended release 24hr 180 mg PO BID Qty: 90 RF: 6 Discharge Instructions Activity:: Activity as Tolerated Diet:: As Tolerated Discharge Orders Discharge Orders: Discharge Order (Routine); Ordered 08/09/19 Ordered By: Han Patel DS: Diagnosis Discharge Diagnosis (1) Rapid atrial fibrillation: Status: Resolved
--- NOTE | 2019-08-09 11:24 | CARD_ITS ---
Date of service: 08/09/19 Time of Service: 11:24 Cardioversion Patient was admitted for a MADI cardioversion: Indication atrial fibrillation. The risks and benefits of the procedure were discussed with the patient and consent forms were signed Patient was brought into the procedure room and sedated with the help of anesthesia. A MDAI was performed and ruled out any thrombus. Left atrial appendage velocities were notably low Patient was cardioverted with 200 J x 1. Successful christianity of normal sinus rhythm was documented with an ECG. Patient was moved to recovery prior to discharge in stable condition
[2019-08-13] MEDS: Lidocaine 2% Viscous 15 ML CUP 20 ML PO (10:50)
== END 2019-08-09 15:25 | disposition home or self-care (01) ==
PROVIDERS: PCP Nurse Practitioner Family; Visit Provider Internal Medicine Cardiovascular Disease
PROC: (CPT 93312; principal; 2019-08-09 10:15)
PROC: 5A2204Z Restoration of Cardiac Rhythm, Single (ICD-10-PCS; CPT 93312; 2019-08-09 10:15)
DX: I48.0 Paroxysmal atrial fibrillation (principal); I10 Essential (primary) hypertension; F17.210 Nicotine dependence, cigarettes, uncomplicated; G47.33 Obstructive sleep apnea (adult) (pediatric)
CPT/HCPCS: 93312; 92960; 93005; 93010; 93320; 93325; J2250; J2704; J3010

== ENCOUNTER 2019-09-11 08:41 | Outpatient (CLI) | payer MEDICARE, OTHER, SELFPAY | END 2019-09-11 09:01 | PROVIDERS: PCP Nurse Practitioner Family; Visit Provider Internal Medicine Cardiovascular Disease | DX: I48.19 Other persistent atrial fibrillation (principal); I25.10 Atherosclerotic heart disease of native coronary artery without angina pectoris; I50.30 Unspecified diastolic (congestive) heart failure; J96.01 Acute respiratory failure with hypoxia; I11.0 Hypertensive heart disease with heart failure | CPT/HCPCS: 99214; 93005; 93010 ==

== ENCOUNTER 2019-11-22 20:20 | Outpatient (REF) | payer MEDICARE, OTHER, SELFPAY ==
[2019-11-22 21:01] LABS: Bilirubin Negative (Negative); Blood Moderate (Negative); Clarity Clear (Clear); Glucose Negative (Negative); Ketones Negative (Negative); Leukocyte Esterase Small (Negative); Nitrite Negative (Negative); Urobilinogen 0.2 EU/dL (Up TO 0.2); pH 6.5 (5-8)
[2019-11-22 21:38] LABS: Bacteria Moderate HPF (Negative); C & S Indicated? Yes; Casts Negative LPF (Negative); Crystals Negative HPF (Negative); Epithelial Cells Few HPF (Negative); Mucus Negative (Negative); Other Cells Few Renal (Negative); WBC 20-50 HPF (0-5)
== END 2019-11-22 20:40 ==
LOC: NCHCN 20:20
PROVIDERS: PCP Nurse Practitioner Family; Visit Provider Nurse Practitioner Family
DX: R30.0 Dysuria (principal)
CPT/HCPCS: 87077; 81003; 81015; 87086; 87186

== ENCOUNTER 2020-01-07 10:30 | Outpatient (CLI) | payer MEDICARE, OTHER, SELFPAY ==
--- NOTE | 2020-01-07 | DI.RAD_ITS ---
EXAM: XR ANKLE LT COMPLETE and XR foot LT complete CLINICAL HISTORY: LT FOOT PAIN, M79.672 TECHNIQUE: 2D digital imaging was performed. COMPARISON: No previous for comparison. FINDINGS: BONES: No definite acute fracture or dislocation is identified. Well corticated osseous densities ar e seen at the base of the 5th metatarsal consistent with old injury. There are enthesophytes seen at the calcaneus. There is a small plantar calcaneal spur. Mild degenerative changes are seen at the 1st metatarsophalangeal joint with periarticular spurring present. There are densities seen in the s oft tissues of the dorsal aspect of the distal talus of uncertain, if any clinical significance. The underlying bone appears unremarkable. There is soft tissue swelling seen in the midfoot. No radiop aque foreign bodies are identified. JOINTS:The ankle mortise is normally aligned. IMPRESSION: No definite acute fracture or dislocation of the left foot and ankle. DATA REPOSITORY: RADIATION DOSE DELIVERED:
== END 2020-01-07 10:50 ==
PROVIDERS: PCP Nurse Practitioner Family; Visit Provider Family Medicine
DX: M79.672 Pain in left foot (principal); M25.572 Pain in left ankle and joints of left foot; M77.32 Calcaneal spur, left foot
CPT/HCPCS: 73610; 73630

== ENCOUNTER 2020-01-25 10:41 | Outpatient (REF) | payer MEDICARE, OTHER, SELFPAY ==
[2020-01-25 20:51] LABS: HCT 52.5 % (36.0-46.0); HGB 17.6 g/dL (12.0-15.5); Mean Corp. HGB Concentration 33.5 g/dL (32.0-36.0); Mean Corpuscular Hemoglobin 29.8 pg (27.0-33.0); Mean Corpuscular Volume 88.8 fL (80-95); Mean Platelet Volume 11.9 fL (8.0-11.0); Platelet Count 233 x1000/uL (130-400); RBC 5.91 m/cumm (4.00-5.20); RBC Distribution Width 15.7 % (11.7-14.6); White Blood Cell Count 9.62 k/cumm (4.4-10.8)
[2020-01-25 21:49] LABS: ALT 40 U/L (14-59); AST 27 U/L (15-37); Albumin 3.6 g/dL (3.4-5.0); Alkaline Phosphatase 88 U/L (46-116); Anion Gap 12.8 mmol/L (3-11); BUN 25 mg/dL (7-18); Bilirubin, Total 2.5 mg/dL (0.2-1.0); CO2 26.2 mmol/L (21.0-32.0); CREATININE 1.36 mg/dL (0.55-1.02); Calcium 8.8 mg/dL (8.5-10.1); Chloride 102 mmol/L (98-107); Estimated GFR 38.55 (mL/min/1.73m2); Glucose 216 mg/dL (74-106); NT-proBNP 5424 pg/mL (<300); Potassium 3.6 mmol/L (3.5-5.1); Sodium 141 mmol/L (136-145); Total Protein 6.9 g/dL (6.4-8.2)
== END 2020-01-25 11:01 ==
LOC: NCHCN 10:41
PROVIDERS: PCP Nurse Practitioner Family; Visit Provider Family Medicine
DX: D45 Polycythemia vera (principal); J44.9 Chronic obstructive pulmonary disease, unspecified; I10 Essential (primary) hypertension; I48.91 Unspecified atrial fibrillation; I11.0 Hypertensive heart disease with heart failure
CPT/HCPCS: 80053; 85027; 83880

== ENCOUNTER → 2020-05-28 09:49 | Outpatient (BNVA) | payer MEDICARE, OTHER, SELFPAY | PROVIDERS: PCP Nurse Practitioner Family; Referring Provider Nurse Practitioner Family; Visit Provider Internal Medicine Cardiovascular Disease | DX: I25.10 Atherosclerotic heart disease of native coronary artery without angina pectoris (principal); I48.19 Other persistent atrial fibrillation; G47.33 Obstructive sleep apnea (adult) (pediatric); I12.9 Hypertensive chronic kidney disease with stage 1 through stage 4 chronic kidney disease, or unspecified chronic kidney disease; N18.9 Chronic kidney disease, unspecified | CPT/HCPCS: 99214 ==

== ENCOUNTER 2020-07-22 00:48 | Outpatient (CLI) | payer MEDICARE, OTHER, SELFPAY ==
--- NOTE | 2020-07-22 08:00 | DI.US_ITS ---
EXAM: US PELVIS TRANSVAGINAL CLINICAL HISTORY: H/O THICKENED ENDOMETRIUM,POST MENOPAUSAL BLEEDING,N95.0. TECHNIQUE: Transabdominal and transvaginal pelvic ultrasound was performed using standard protocol. COMPARISON: US US PELVIS TRANSVAGINAL from 07/23/2019 FINDINGS: KIDNEYS: Kidneys are symmetric in size. No evidence of renal calculi. No evidence of hydronephrosis. There is again seen a simple cyst arising from the inferior pole of the right kidney. UTERUS: Position: Anteverted. Size: 6.7 long by 3.1 AP by 5.6 transverse cm Endometrium: 2.0 cm. The endometrium is markedly thickened in this postmenopausal patient. This comp ruben to 1.9 on the prior examination. The endometrium is heterogeneous with multiple small cystic ar eas. No significant increased blood flow is seen. Myometrium: Unremarkable. Cervix: Unremarkable. OVARIES: Not visualized on this examination transabdominally or transvaginally. CUL-DE-SAC: Free fluid: None. Other: None. IMPRESSION: 1. Stable right renal cyst. 2. Markedly thickened and heterogeneous endometrial stripe measuring 2 cm in diameter. Biopsy may be considered in this postmenopausal patient for further evaluation. 3. Ovaries not visualized on this examination transabdominally or transvaginally. No adnexal mass is seen sonographically. DATA REPOSITORY:
== END 2020-07-22 01:08 ==
PROVIDERS: PCP Nurse Practitioner Family; Visit Provider Obstetrics & Gynecology
DX: N95.0 Postmenopausal bleeding (principal); R93.89 Abnormal findings on diagnostic imaging of other specified body structures; N28.1 Cyst of kidney, acquired
CPT/HCPCS: 76830; 76856

== ENCOUNTER 2020-08-21 | Outpatient (REF) | payer MEDICARE, OTHER, SELFPAY ==
[2020-08-21 21:05] LABS: Anion Gap 12.2 mmol/L (3-11); BUN 21 mg/dL (7-18); CO2 27.8 mmol/L (21.0-32.0); CREATININE 1.3 mg/dL (0.55-1.02); Calcium 8.8 mg/dL (8.5-10.1); Chloride 102 mmol/L (98-107); Estimated GFR 40.61 (mL/min/1.73m2); Glucose 208 mg/dL (74-106); Potassium 3.6 mmol/L (3.5-5.1); Sodium 142 mmol/L (136-145)
[2020-08-21 21:08] LABS: HCT 53.6 % (36.0-46.0); HGB 18.9 g/dL (11.2-15.7); MCH 31.8 pg (27.0-33.0); MCHC 35.3 % (32.0-36.0); MCV 90.2 fL (80-95); MPV 11.7 fL (8.0-11.0); Platelet Count 220 10^3/uL (130-400); RBC 5.94 10^6/uL (3.93-5.22); RDW 13.9 % (11.7-14.6); RDW-SD 41.1 fL; WBC 7.41 10^3/uL (4.4-10.8)
== END 2020-08-22 00:44 | disposition home or self-care (01) ==
LOC: NCHCN
PROVIDERS: PCP Nurse Practitioner Family; Visit Provider Nurse Practitioner Family
DX: E11.22 Type 2 diabetes mellitus with diabetic chronic kidney disease (principal); N18.9 Chronic kidney disease, unspecified
CPT/HCPCS: 80048; 85027

== ENCOUNTER 2020-09-08 03:04 | Outpatient (CLI) | payer MEDICARE, OTHER, SELFPAY ==
[2020-09-08 09:18] LABS: HCT 56.1 % (36.0-46.0); HGB 18.9 g/dL (11.2-15.7); MCHC 33.7 % (32.0-36.0); MCV 88.9 fL (80-95); MPV 11.1 fL (8.0-11.0); Nucleated RBC 0 %; RBC 6.31 10^6/uL (3.93-5.22); RDW 12.8 % (11.7-14.6); RDW-SD 41.7 fL; WBC 7.92 10^3/uL (4.4-10.8)
[2020-09-08 09:41] LABS: Absolute Basophil Count 0.08 10^3/uL (0.0-0.2); Absolute Lymphocyte Count 1.82 10^3/uL (1.2-3.4); Absolute Monocyte Count 0.55 10^3/uL (0.1-0.8); Absolute Neutrophil Count 5.46 10^3/uL (1.2-6.7); Atypical Lymphocytes % 8; Diff Comment Manual Differential; Platelet Count 220 10^3/uL (130-400); RBC Morphology Normal
[2020-09-08 14:46] LABS: Source Nasal/Nares
[2020-09-08 17:18] LABS: COVID-19 PCR Negative (Negative)
== END 2020-09-08 03:05 | disposition home or self-care (01) ==
PROVIDERS: PCP Nurse Practitioner Family; Visit Provider Obstetrics & Gynecology
DX: N95.0 Postmenopausal bleeding (principal); Z01.818 Encounter for other preprocedural examination; Z01.812 Encounter for preprocedural laboratory examination
CPT/HCPCS: 36415; 86850; 86900; 86901; U0003; 85025

== ENCOUNTER 2020-09-11 07:11 | Day surgery (SDC) | payer MEDICARE, OTHER, SELFPAY ==
[2020-09-11 07:41] VITALS: BP 158/94; PULSE 99; RESP 18; TEMP 36.4; O2SAT 95
[2020-09-11] MEDS: Lactated Ringers 1,000 ML 50 ML IV (08:05)
--- NOTE | 2020-09-11 09:14 | ENDO_PTH ---
PATIENT: Edwige Davis LOC: [facility] U#:[id number] AGE/SX: 69/F ROOM: RE09/11/[address]: La Nena Skelton DO : 1950 BED: DIS: 09/11/2020 SPEC #: [id number] RECD: 09/12/20 12:20 STATUS: NAVDEEP RE #: [id number] JACKSON: 09/11/20 09:[address]: La Nena Skelton DEPT: Surgical Specimen RECD BY: Ashley Pepper ENTERED: 09/12/20 12:23 SP TYPE: Endo OTHR DR: Esther Verma Tissues: 1 - ENDOCERVICAL BX/CURRETTE 2 - ENDOMETRIUM BX/CURRETTE 3 - ENDOMETRIUM BX/CURRETTE Procedures: GROSS AND MICRO LEVEL 4 Comments: [id number]
--- NOTE | 2020-09-11 09:39 | ROE_ITS ---
Date of service: 09/11/20 Time of Service: 09:39 Operative Note Operative Note DATE OF PROCEDURE: 09/11/20 PRE-OP DIAGNOSIS: Post menopausal bleeding POST-OP DIAGNOSIS: same PROCEDURE: Hysteroscopy with dilation and curettage SURGEON: La Nena Skelton ANESTHESIA TYPE: General:No Airway Refer to Anesthesia Record ESTIMATED BLOOD LOSS: 5 COMPLICATIONS: None Patient was transported to: PACU Patient's condition: stable Indications: Post menopausal bleeding, thickened endometrium Findings: 2cm endometrial polyp. Smooth, thin endometrium and endocervix Procedure Description: Patient is a 69-year-old female with a second episode of postmenopausal bleeding. She would have been evaluated with ultrasound which confirmed thickened endometrium. Due to this the recommendation was for hysteroscopy with dilation and curettage to evaluate the endometrial cavity and assess for any intrauterine pathology. Risk benefits and alternatives of procedure were explained to the patient full informed consent was obtained. She did have preoperative medical clearance. She has chronic A. fib atrial fibrillation for which she is on anticoagulation. This was stopped 3 days prior to the procedure and will be resumed 1 day post. She is taken operating suite with an IV running where she is placed in dorsal supine position and anesthesia administered. She is then placed in the modified dorsal lithotomy position and prepped and draped in usual sterile fashion. She had pneumatic compression stockings placed for DVT prophylaxis. Exam under anesthesia revealed a uterus that is midline and mobile but difficult to assess due to body habitus. Speculum was placed in the posterior vaginal vault and a single-tooth tenaculum used to grasp the anterior lip of the cervix. Cervical os dilated the point that a 5 mm hysteroscope could be passed with ease. With normal saline installation the entire endometrial cavity was inspected. Endocervix and endometrium were found to be smooth and regular and there is a large approximately 2 cm pedunculated endometrial polyp. The hysteroscope was removed and the polyp was grasped with the polyp forceps and removed. Endocervical and endometrial curettage were also performed and post polypectomy the endometrial cavity was smooth and regular without evidence of remaining polyp in situ. At this point procedure was discontinued and his tenaculum and speculum were removed. She woke from anesthesia with ease and was taken recovery room in s table condition. EBL: 5 mL Complications: None apparent Pathology: 1 endocervical curetting 2 endometrial curetting 3 endometrial polyp Fluids: Crystalloid per anesthesia
[2020-09-11 10:10] VITALS: BP 135/83; PULSE 98; RESP 20; TEMP 36.3; O2SAT 94
== END 2020-09-11 10:50 | disposition home or self-care (01) ==
PROVIDERS: PCP Nurse Practitioner Family; Visit Provider Obstetrics & Gynecology
PROC: 0UDB8ZZ Extraction of Endometrium, Via Natural or Artificial Opening Endoscopic (ICD-10-PCS; CPT 58558; principal; 2020-09-11 08:30)
DX: N93.9 Abnormal uterine and vaginal bleeding, unspecified (principal); I48.91 Unspecified atrial fibrillation; I25.10 Atherosclerotic heart disease of native coronary artery without angina pectoris; I12.9 Hypertensive chronic kidney disease with stage 1 through stage 4 chronic kidney disease, or unspecified chronic kidney disease; N18.9 Chronic kidney disease, unspecified
CPT/HCPCS: 58558; 88305; J1885; J2001; J2250; J2405; J3010

== ENCOUNTER → 2020-11-18 09:53 | Outpatient (BNVA) | payer MEDICARE, OTHER, SELFPAY | PROVIDERS: PCP Nurse Practitioner Family; Referring Provider Nurse Practitioner Family; Visit Provider Internal Medicine Cardiovascular Disease | DX: I25.10 Atherosclerotic heart disease of native coronary artery without angina pectoris (principal); R06.02 Shortness of breath; I48.91 Unspecified atrial fibrillation; I10 Essential (primary) hypertension | CPT/HCPCS: 99213 ==

== ENCOUNTER 2021-05-04 01:34 | Outpatient (CLI) | payer MEDICARE, OTHER, SELFPAY ==
--- NOTE | 2021-05-04 | DI.RAD_ITS ---
Exam(s) XR HIP RT COMPLETE AP PELVIS EXAM: XR HIP RT COMPLETE AP PELVIS CLINICAL HISTORY: RT LEG PAIN, M79.604,? OA OF HIP. TECHNIQUE: 2D digital imaging was performed. COMPARISON: CR RT HIP COMPLETE AP PELVIS from 02/18/2016 FINDINGS: No evidence of pelvic nor hip fracture. Moderate degenerative changes in the right hip noted. Mild degenerative changes in the left hip. Sacroiliac joints appear unremarkable. No osseous lesions. IMPRESSION: DATA REPOSITORY: RADIATION DOSE DELIVERED:
== END 2021-05-04 01:54 ==
PROVIDERS: PCP Nurse Practitioner Family; Visit Provider Nurse Practitioner Family
DX: M79.604 Pain in right leg (principal); M16.0 Bilateral primary osteoarthritis of hip
CPT/HCPCS: 73502

== ENCOUNTER → 2021-05-19 09:21 | Outpatient (BNVA) | payer MEDICARE, OTHER, SELFPAY | PROVIDERS: PCP Nurse Practitioner Family; Referring Provider Nurse Practitioner Family; Visit Provider Internal Medicine Cardiovascular Disease | DX: I25.10 Atherosclerotic heart disease of native coronary artery without angina pectoris (principal); I48.91 Unspecified atrial fibrillation; I10 Essential (primary) hypertension | CPT/HCPCS: 99214; 99213 ==

== ENCOUNTER 2021-05-27 00:37 | Outpatient (CLI) | payer MEDICARE, OTHER, SELFPAY ==
--- NOTE | 2021-05-27 12:20 | DI.MAMMO_ITS ---
Exam(s) MAMMO SCREENING EXAM: MAMMO SCREENING CLINICAL HISTORY: SCREENING, Z12.31. TECHNIQUE: Bilateral full field digital CC and MLO mammographic images were obtained with 3D tomosyn thesis and utilizing computer aided detection (CAD). COMPARISON: Prior mammograms dating back to 2014, the most recent being February 2019. FINDINGS: The fibroglandular tissue pattern is moderately dense, this somewhat decreasing the sensitivity mammo gram for finding hidden underlying lesions. There are no new significant radiograph findings in the right breast In left breast on 3D MLO imaging there is an asymmetric density-possible nodule located 6 cm in from the nipple above the center of measuring approximately 5 x 4 millimeters. This is in addition to a f ew benign-appearing peripherally calcified oil cysts medial of center in the same-left breast There is no significant architectural distortion nor skin thickening-retraction. IMPRESSION: 1. No radiographic evidence of malignancy in the right. 2. Left breast asymmetric density-possible nodule, as described above. Spot compression 3D MLO view as well as left breast ultrasound recommended. BI-RADS Category 0 - Assessment Incomplete: Need additional imaging evaluation Breast Density - Category C - Heterogeneously dense Breast density Category C or D implies that the patient has dense breast tissue. Dense breast tissue can make it harder to find cancer on a mammogram. Dense breast tissue is also associated with an incr eased risk of breast cancer. This information about the result of the mammogram report was provided to the patient to raise their awareness. Use this report when you speak with the patient about their risks for breast cancer, which includes their family history. At that time, you may recommend additional screening tests (Ultrasoun d or MRI) as these tests may add significant information. A negative radiographic report should not delay biopsy if a dominant or clinically suspicious mass is present. Up to ten percent of cancers are not identified on mammography. A negative report may reinforce clinical impression. Adenosis and dense breasts may obscure an underlying neoplasm. False positive reports average 6 to 10%. Patient will receive a letter notifying them of these results.
== END 2021-05-27 00:57 ==
PROVIDERS: PCP Nurse Practitioner Family; Visit Provider Nurse Practitioner Family
DX: Z12.31 Encounter for screening mammogram for malignant neoplasm of breast (principal); R92.8 Other abnormal and inconclusive findings on diagnostic imaging of breast
CPT/HCPCS: 77063; 77067

== ENCOUNTER 2021-06-10 01:37 | Outpatient (CLI) | payer MEDICARE, OTHER, SELFPAY ==
--- NOTE | 2021-06-10 14:30 | DI.MAMMO_ITS ---
Exam(s) MG MAMMO SCREEN CALL BACK UNI US BREAST LT COMPLETE EXAM: US BREAST LT COMPLETE CLINICAL HISTORY: ASYMMETRIC DENSITY POSSIBLE NODULE LT BREAST TECHNIQUE: Ultrasound performed using standard protocol. COMPARISON: US US PELVIS TRANSVAGINAL from 07/22/2020 FINDINGS: Additional mammographic views of the left breast and left breast ultrasound are interpreted in conjun ction. These examinations were obtained to evaluate a focal nodular radiodensity seen in the left br east on recent examination, about 6 cm from the nipple in the 12 o'clock position. Additional mammog raphic views obtained today fail to show a mass at this site. Breast ultrasound shows a 4 millimeter cyst in the 12 o'clock position but only 2 cm from the nipple, no additional breast mass identified. IMPRESSION: No specific evidence of malignancy at this time. Follow-up unilateral left breast mammogram recommen ded in 6 months. BI-RADS Cat 3 - 6 month - Probably Benign Finding: Recommend follow-up imaging in 6 months Breast Density - Category C - Heterogeneously dense DATA REPOSITORY:
== END 2021-06-10 01:57 ==
PROVIDERS: PCP Nurse Practitioner Family; Visit Provider Nurse Practitioner Family
DX: R92.8 Other abnormal and inconclusive findings on diagnostic imaging of breast (principal); N60.02 Solitary cyst of left breast
CPT/HCPCS: 76642; 77063; 77067

== ENCOUNTER 2021-09-15 18:54 | Outpatient (REF) | payer MEDICARE, OTHER, SELFPAY ==
--- OUTSIDE RECORDS SUMMARY | 2021-09-15 19:04 | XMS_ITS ---
:1950 Author Care Team Providers Name Role Phone [facility] Primary Care Provider [phone] HEATH CARRASCO Primary Care Provider [phone] Allergies Code Code System Name Reaction Severity Status Onset 4053 RxNorm Erythromycin Base ? ? Active ? 593163 RxNorm Plavix ? ? Active ? 306051 RxNorm Sudafed ? ? Active ? Sulfa ? ? Active ? (Sulfonamide Antibiotics) Medications Name Status Start Date Stop Date ? ? Aspir-81 mg tablet,delayed release Active ? Not available Take 1 tablet every day by oral route. aspirin 325 mg tablet Completed ? 02/21/2020 Take 1 tablet every day by oral route. betamethasone valerate 0.1 % topical ointment Active ? Not available APPLY A THIN LAYER TO THE AFFECTED AREA(S) BY TOPICAL ROUTE ONC E DAILY diltiazem 120 mg tablet Completed ? 03/08/20 19 Take 1 tablet every day by oral route. Eliquis 5 mg tablet Active ? Not availabl e Take 1 tablet twice a day by oral route. hydrochlorothiazide 25 mg tablet Active ? Not available Take 1 tablet every day by oral route. Lasix 40 mg tablet Active ? Not available Take 1 tablet every day by oral route. lisinopril 10 mg tablet Active ? Not avai lable Take 1 tablet every day by oral route. metformin 500 mg tablet Active ? Not avai lable Take 1 tablet every day by oral route. montelukast 10 mg tablet Active ? Not citlalli ilable Take 1 tablet every day by oral route. Nitrostat 0.4 mg sublingual tablet Active ? Not available Place 1 tablet by sublingual route. Toprol XL 50 mg tablet,extended release Completed ? 02/21/2020 Take 2.5 tablets every day by oral route. Tums 500 Active ? Not available 1 tab daily Vitamin D Active ? Not available 400IU daily zolpidem 5 mg tablet Completed ? 06/12/2019 take 1-2 PO night of sleep study PRN. Problems Name Status Onset Date Source ? Diabetes Mellitus Active 02/28/2019 ? Hypertensive Disorder Active 02/28/2019 ? Atrial Fibrillation Active 02/28/2019 ? Bronchitis Active 02/28/2019 ? Snoring Active 02/28/2019 ? 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 Obstructive Sleep Apnea Syndrome Active ? ? Procedures Date Name Performed by ? 03/08/2019 Polysomnogram Information not avai lable Results Lab Results Date Name Specimen Result Interpretation Description Value Range Status Address ? 08/03/2019 Neutrophil BLD - Anc-manual 14.50 ? [place] Count, 10*3/uL [facility] (Anc), Blood (Int ernal): [address] 08/03/2019 Differential BLD High Polys 81 % 40-75 % Final [place] , Manual, [facility] (Internal) : [address] ? ? BLD - Bands 0 % 0-5 % Final [facility] L [facility] (Internal) : [address] ? ? BLD Low Lymphs 10 % 20-50 % Final [facility] (Internal) : [address] ? ? BLD - [place] 5 % 2-10 % Final [facility] L ab (Internal) : [address] ? ? BLD - Eos 0 % 0-6 % Final [facility] L [facility] (Internal) : [address] ? ? BLD - Baso 0 % 0-1 % Final [facility] L [facility] (Internal) : [address] ? ? BLD - Atyp Lymph 4 % ? Final [facility] L [facility] (Internal) : [address] ? ? BLD - Plts, Est. adequate adequate Final [facility] (Internal) : [address] ? ? BLD - RBC normal normal Final [facility] (Internal) : [address] 08/03/2019 CMP, Serum S High g/r 344 mg/dL 74-106 Final [facility] or Plasma mg/dL [facility] (Internal) : [address] ? ? S High Bun 69 mg/dL 7-17 Final [facility] mg/dL [facility] : [address] ? ? S High Crea 2.00 0.52-1.04 Final [facility] mg/dL mg/dL [facility] ([facility] : [address] ? ? S - Ca 9.6 mg/dL 8.4-10.2 Final [facility] mg/dL [facility] ([facility] : [address] ? ? S Low Na 131 137-145 Final [facility] mmol/L mmol/L [facility] ([facility] : [address] ? ? S - K 3.6 3.5-5.1 Final [facility] mmol/L mmol/L [facility] ([facility] : [address] t ? ? S Low Cl 90 mmol/L 98-107 Final [facility] mmol/L [facility] (Internal) : [address] ? ? S - Tco2 26.0 22.0-30.0 Final [facility] mmol/L mmol/L [facility] ([facility] : [address] ? ? S - Tp 6.7 g/dL 6.3-8.2 Final [facility] g/dL [facility] : [address] ? ? S - Alb 3.5 g/dL 3.5-5.0 Final [facility] g/dL [facility] ([facility] : [address] ? ? S High Tbil 1.7 mg/dL 0.2-1.3 Final [facility] mg/dL [facility] ([facility] : [address] ? ? S - Alp 81 U/L 38-126 Final [facility] U/L [facility] (Internal) : [address] ? ? S - Alt (Sgpt) 15 U/L 9-52 U/L Final [facility] : [address] ? ? S - Ast (Sgot) 22 U/L 14-36 U/L Final [facility] : [address] 08/03/2019 CBC W/ Auto BLD High Wbc 17.9 5.0-10.0 Final [place] Diff 10*3/uL 10*3/uL [facility] (Internal) : [address] ? ? BLD High Rbc 5.80 4.10-5.30 Final [place] 10*6/uL 10*6/uL [facility] (Internal) : [address] t ? ? BLD High Hgb 17.3 g/dL 12.0-16.0 Final Nort h g/dL [facility] (Internal) : [address] t ? ? BLD High Hct 50.7 % 37.0-47.0 Final [facility] L [facility] (Internal) : [address] ? ? BLD - Mcv 87.4 fL 80.0-96.0 Final [facility] L [facility] (Internal) : [address] ? ? BLD - Mch 29.8 pg 26.0-32.0 Final [facility] (Internal) : [address] ? ? BLD - Mchc 34.1 g/dL 31.0-35.0 Final Nort h g/dL [facility] (Internal) : [address] ? ? BLD - Rdw 13.8 % 11.5-14.5 Final [facility] L [facility] (Internal) : [address] ? ? BLD - Plt 313 130-450 Final [place] 10*3/uL 10*3/uL [facility] (Internal) : [address] Past Encounters None recorded. Social History Tobacco Smoking Status Former Smoker Notes: quit 10 + years ago Vaccine List None recorded. Plan of Care Reminders Provider Appointments None ? ? recorded. Lab None ? ? recorded. Referral None ? ? recorded. Procedures None ? ? recorded. Surgeries None ? ? recorded. Imaging None ? ? recorded. Vitals 02/21/2020 10:15AM Office 15 Height Weight BMI Blood Pressure 160.02 cm 87 kg 34 kg/m2 150/104 mm[Hg] 06/12/2019 09:15AM Office 30 Height Weight BMI Blood Pressure 160.02 cm 87.72 kg 34.3 kg/m2 118/70 mm[Hg] 03/08/2019 10:45AM New Patient 45 Height Weight BMI Blood Pressure 160.02 cm 87.72 kg 34.3 kg/m2 110/78 mm[Hg]
[2021-09-15 21:25] LABS: HGB 17.8 g/dL (11.2-15.7); MCH 33.4 pg (27.0-33.0); MCHC 35.6 % (32.0-36.0); MCV 93.8 fL (80-95); MPV 12.8 fL (8.0-11.0); Platelet Count 213 10^3/uL (130-400); RBC 5.33 10^6/uL (3.93-5.22); RDW 13.8 % (11.7-14.6); RDW-SD 43.8 fL; WBC 7.84 10^3/uL (4.4-10.8)
[2021-09-15 21:43] LABS: Anion Gap 10.5 mmol/L (3-11); BUN 22 mg/dL (7-18); CO2 27.5 mmol/L (21.0-32.0); CREATININE 1.1 mg/dL (0.55-1.02); Calcium 8.7 mg/dL (8.5-10.1); Chloride 102 mmol/L (98-107); Glucose 261 mg/dL (74-106); Sodium 140 mmol/L (136-145); TSH (W/Ref FT4) 0.64 uIU/mL (0.36-3.74)
== END 2021-09-15 18:55 | disposition home or self-care (01) ==
LOC: NCHCN 18:54
PROVIDERS: PCP Nurse Practitioner Family; Visit Provider Nurse Practitioner Family
DX: I48.91 Unspecified atrial fibrillation (principal); E11.9 Type 2 diabetes mellitus without complications
CPT/HCPCS: 80048; 85027; 84443

== ENCOUNTER → 2021-11-19 10:24 | Outpatient (BNVA) | payer MEDICARE, OTHER, SELFPAY | PROVIDERS: PCP Nurse Practitioner Family; Visit Provider Internal Medicine Cardiovascular Disease | DX: I25.10 Atherosclerotic heart disease of native coronary artery without angina pectoris (principal); I10 Essential (primary) hypertension; I48.91 Unspecified atrial fibrillation | CPT/HCPCS: 99214; 99213 ==

== ENCOUNTER → 2021-12-16 02:49 | Outpatient (CLI) | payer MEDICARE, OTHER, SELFPAY ==
--- NOTE | 2021-12-16 13:52 | DI.MAMMO_ITS ---
Exam(s) MG MAMMO DIAGNOSTIC UNI EXAM: MAMMO DIAGNOSTIC UNI CLINICAL HISTORY: 6-mo f/u abnl left mammo, r92.8 TECHNIQUE: Mammograms were interpreted according to the usual protocol including computer analysis w SNADEC CAD system, tomosynthesis and C-view imaging. COMPARISON: FINDINGS: Today's examination is a six-month follow-up examination to re-evaluate questionable area of nodulari ty seen on MLO view of left breast on prior examination of May 2021. On today's examination thi s is less prominent. No new mass or clumped microcalcification seen. IMPRESSION: No specific evidence of malignancy at this time. I would suggest that routine screening examinations resume with a bilateral mammogram in 6 months. BI-RADS Category 3 - 6 month - Probably Benign Finding: Recommend follow-up mammography in 6 months Breast Density - Category C - Heterogeneously dense
== END ==
PROVIDERS: PCP Nurse Practitioner Family; Visit Provider Nurse Practitioner Family
DX: R92.8 Other abnormal and inconclusive findings on diagnostic imaging of breast (principal); N64.59 Other signs and symptoms in breast
CPT/HCPCS: 77061; 77065; G0279

== ENCOUNTER → 2022-03-03 10:15 | Outpatient (BNVA) | payer MEDICARE, OTHER, SELFPAY | PROVIDERS: PCP Nurse Practitioner Family; Referring Provider Nurse Practitioner Family; Visit Provider Nurse Practitioner Adult Health | DX: E11.42 Type 2 diabetes mellitus with diabetic polyneuropathy (principal); J44.9 Chronic obstructive pulmonary disease, unspecified; Z87.891 Personal history of nicotine dependence; I12.9 Hypertensive chronic kidney disease with stage 1 through stage 4 chronic kidney disease, or unspecified chronic kidney disease; E11.9 Type 2 diabetes mellitus without complications | CPT/HCPCS: 99204; 99215 ==

== ENCOUNTER 2022-03-05 11:35 | Outpatient (CLI) | payer MEDICARE, OTHER, SELFPAY ==
[2022-03-05 13:06] LABS: Vitamin B12 567 pg/mL (193-986)
[2022-03-09 15:16] LABS: Albumin 57.1 % (55.8-66.1); Albumin g/dL 3.7 g/dL (3.6-5.2); Comment (See Note); Total Protein 6.4 g/dL (6.3-8.2)
[2022-03-09 16:57] LABS: Immunotyping, Serum (See Note)
== END 2022-03-05 11:36 | disposition home or self-care (01) ==
LOC: LBO 11:35
PROVIDERS: PCP Nurse Practitioner Family; Visit Provider Nurse Practitioner Adult Health
DX: R20.2 Paresthesia of skin (principal); G62.89 Other specified polyneuropathies
CPT/HCPCS: 36415; 82607; 84165; 86320

== ENCOUNTER 2022-05-13 12:07 | Emergency (ER) | payer MEDICARE, OTHER, SELFPAY ==
[2022-05-13] VITALS (24 sets, daily range): BP systolic 104–174; BP diastolic 77–151; PULSE 55–146; RESP 14–33; TEMP 36.6; O2SAT 95
--- NOTE | 2022-05-13 12:15 | RT.EKG_ITS ---
APPROVED REPORT Exam: Resting ECG Reason for Exam: TACHYCARDIA/AFIB Patient Location: E HR:115 bpm ECG Measurements Heart Rate 115 AXIS LA [id number] P [id number] QRSd 85 QRS 80 QT 329 T 236 QTc 455 Conclusion Atrial fibrillation...V-rate 71-165, irreg A-activity Ventricular premature complex...V complex w/ short R-R interval
--- NOTE | 2022-05-13 12:30 | DI.RAD_ITS ---
Exam(s) XR CHEST 2V PA LATERAL EXAM: XR CHEST 2V PA LATERAL CLINICAL HISTORY: shortness of breath TECHNIQUE: 2D digital imaging was performed of the chest. Two images were obtained. PA and lateral views were obtained. COMPARISON: CR XR CHEST 2V PA LATERAL from 06/08/2019 CR XR PORTABLE CHEST AP from 07/26/2019 FINDINGS: MEDIASTINUM: Normal. HEART: Mild cardiomegaly. PULMONARY VASCULATURE: Normal. LUNGS: There is an area of increased opacity in the right lung apex. This may represent a superimpos ition of shadows but pulmonary infiltrate or mass cannot be excluded. A CT scan of the chest should be considered for further evaluation. PLEURAL SPACE: No pleural effusion or pneumothorax. BONE:Within normal limits for the patient's age. OTHER FINDINGS:Normal. IMPRESSION: Opacity in the right lung apex. CT scan of the chest should be considered for further evaluation. A lternatively, an AP lordotic view of the chest may be obtained 1st. If the finding persists, a CT sc an should be obtained. DATA REPOSITORY: RADIATION DOSE DELIVERED:
--- NOTE | 2022-05-13 12:40 | W.ED.GENAD ---
Discharge Plan Disposition Patient Disposition: HOME Condition: Stable Discharge Details Clinical Impression: Atrial fibrillation, Acute CHF Primary Care Provider: Esther Verma ED Provider: Ashley Goldman Home Meds and New Rx's Prescriptions: New metoprolol tartrate 25 mg tablet 25 mg PO DAILY PRNQty: 30 0RF Rx Instructions: hr>110 furosemide [Lasix] 40 mg tablet 40 mg PO DAILY Qty: 7 0RF Continued metoprolol succinate 25 mg tablet extended release 24 hr 25 mg PO DAILY Rx Instructions: takes with 100 mg for total 125 mg daily Novolin R Flexpen 100 unit/mL (3 mL) insulin pen 24 unit subcut DAILY aspirin [Adult Aspirin Regimen] 81 mg tablet,delayed release (DR/EC) 81 mg PO DAILY Qty: 90 0RF metoprolol succinate 100 mg tablet extended release 24 hr 100 mg PO DAILY Qty: 90 6RF furosemide 40 mg tablet 40 mg PO DAILY Victoza 3-Abdulaziz 0.6 mg/0.1 mL (18 mg/3 mL) pen injector 0.6 mg subcut DAILY Eliquis 5 MG tablet 5 mg PO BID Qty: 60 montelukast 10 mg tablet 10 mg PO DAILY betamethasone valerate 0.1 % ointment 1 applic topical DAILY PRN nitroglycerin 0.4 MG tablet, sublingual 0.4 mg Sublingual PER PROTOCOL Rx Instructions: needs script renewed cholecalciferol (vitamin D3) 1,000 UNITS tablet 1,000 units PO DAILY calcium carbonate 430 mg calcium (1,000 mg) Tablet,Chewable 1,000 mg PO DAILY lisinopril 10 mg tablet 5 mg PO DAILY Discharge Instructions Instructions: Heart Failure (ED), A-fib (Atrial Fibrillation) (ED), Pulmonary Edema (ED), Pulmonary Nodules (ED) Additional Instructions: Patient heart rate greater than 110, check Your Pulse to the Monitor, You May Take an Extra Dose of Metoprolol, 25 Mg, Use the Prescription That I Have Supplied You with Instead of the Extended Release Medication Take the Lasix 40 Mg Daily This Will Be for 1 Week You Should Follow-Up with Primary Care Physician and Cardiology in the Outpatient Setting regarding Your Atrial Fibrillation That You Unfortunately Are Poorly Controlled You Have a Nodule That Is concerning for a Cancerous Process on Your CAT Scan, It Is Very Important That You Follow-Up, I Have Referred You to Pulmonology in the Outpatient Setting Please Be Reassessed within the Next Several Days, Please Return Emerged Emergently Should You Have Chest Pain, Worsening Shortness of Breath, or with Any New or Worsening Complaints Referrals: Shalonda Richardson MD [ [facility] STAFF PHYSICIAN] - Maribel Dacosta MD [ [facility] STAFF PHYSICIAN] - Esther Verma [Primary Care Provider] - Discharge Orders Other Ambulatory Orders: 14 Day Heel Seater (Routine) Timeframe: 10 Day Facility: [facility] - Location: Respiratory Therapy Ordered By: Ashley Goldman Discharge Data Discharge Date/Time-TO BE ENTERED AT DEPARTURE: 05/13/22 19:08 Medical Decision Making <Rik Kelly NP - Last Filed: 05/14/22 10:22> Patient presenting to the emergency department for chief complaint of shortness of breath. Patient states this is similar to previous episodes of A. fib. She does report some lower extremity swelling and fatigue but otherwise denies chest pain, fever chills, cold symptoms. Physical exam shows irregular heart rate and rhythm with tachycardia. Lower extremity edema with pitting clear lung sounds and otherwise unremarkable exam. I am concerned for A. fib with RVR potentially causing acute CHF which patient has had in the past. We will plan on checking labs including BNP and chest x-ray. Will give patient additional Lopressor IV push to see if this helps her heart rate as she is normally on metoprolol. Please see physician interpretation for full interpretation of EKG but patient does appear to be in A. fib withRVR Reviewed patient's labs and CBC does show an increased hemoglobin and RBC and hematocrit which is typical on review of previous labs and overall unchanged. Initial troponin is negative. BUN is slightly elevated at 25 with creatinine 1.4 but does seem near patient's baseline. Total bilirubin is 1.6. BUN is 2526 which compared to patient's last admission his decreased. Patient continues to have episodes of A. fib with a rate in the 120s so we will give additional Lopressor pending chest xray. Pending chest x-ray results I did speak to hospitalist in regards to potential for admission of patient. She did state that depending on x-ray imaging that if everything remains stable patient could trial additional dose of Lopressor with Lasix and to have patient ambulate and if symptoms are improving may consider sending patient home on cardiac event monitor with close primary care follow-up for consideration of medication changes. Did discuss this with patient and she stated that she would prefer to go home if possible. Reviewed chest x-ray and radiologist interpretation that shows possible opacity in the right lung apex with radiologist recommendation of CT imaging of the chest for further evaluation. Patient signed out to BELINDA Anthony for continued monitoring of patient, along with ambulating patient with review of x-ray versus CT imaging at radiologist recommend Imaging Data Radiologic Study: Attestation: I personally reviewed and interpreted this imaging study as follows: Imaging: X-Ray Radiologist's impression: FINDINGS: MEDIASTINUM: Normal. HEART: Mild cardiomegaly. PULMONARY VASCULATURE: Normal. LUNGS: There is an area of increased opacity in the right lung apex. This may represent a superimposition of shadows but pulmonary infiltrate or mass cannot be excluded. A CT scan of the chest should be considered for further evaluation. PLEURAL SPACE: No pleural effusion or pneumothorax. BONE:Within normal limits for the patient's age. OTHER FINDINGS:Normal. IMPRESSION: Opacity in the right lung apex. CT scan of the chest should be considered for further evaluation. Alternatively, an AP lordotic view of the chest may be obtained 1st. If the finding persists, a CT scan should be obtained. <BELINDA Anthony - Last Filed: 05/13/22 23:18> Patient presenting to the emergency department for chief complaint of shortness of breath. Patient states this is similar to previous episodes of A. fib. She does report some lower extremity swelling and fatigue but otherwise denies chest pain, fever chills, cold symptoms. Physical exam shows irregular heart rate and rhythm with tachycardia. Lower extremity edema with pitting clear lung sounds and otherwise unremarkable exam. I am concerned for A. fib with RVR potentially causing acute CHF which patient has had in the past. We will plan on checking labs including BNP and chest x-ray. Will give patient additional Lopressor IV push to see if this helps her heart rate as she is normally on metoprolol. Please see physician interpretation for full interpretation of EKG but patient does appear to be in A. fib withRVR Reviewed patient's labs and CBC does show an increased hemoglobin and RBC and hematocrit which is typical on review of previous labs and overall unchanged. Initial troponin is negative. BUN is slightly elevated at 25 with creatinine 1.4 but does seem near patient's baseline. Total bilirubin is 1.6. BUN is 2526 which compared to patient's last admission his decreased. Patient continues to have episodes of A. fib with a rate in the 120s so we will give additional Lopressor pending chest xray. Pending chest x-ray results I did speak to hospitalist in regards to potential for admission of patient. She did state that depending on x-ray imaging that if everything remains stable patient could trial additional dose of Lopressor with Lasix and to have patient ambulate and if symptoms are improving may consider sending patient home on cardiac event monitor with close primary care follow-up for consideration of medication changes. Did discuss this with patient and she stated that she would prefer to go home if possible. Reviewed chest x-ray and radiologist interpretation that shows possible opacity in the right lung apex with radiologist recommendation of CT imaging of the chest for further evaluation. Patient signed out to BELINDA Anthony for continued monitoring of patient, along with ambulating patient with review of x-ray versus CT imaging at radiologist recommend LB: Care is accepted from [facility] pending diuresis and reassessment, her rate increased into the 130s and she was given a subsequent dose of diltiazem, 15 mg which started better rate control her She was also given an additional 40 mg of IV Lasix for 80 mg Pham, she is resting comfortably in room, ambulatory without dyspnea and feeling marked improvement, she is urinated twice since the Lasix has been administered and that she is requesting discharge home at this time She is discharged home on Lasix, 40 mg daily, she is given increased dose of metoprolol to 25 mg She has an appointment scheduled with cardiology on and will need close outpatient assessment with PCP X-ray has opacity and therefore CT chest noncontrast was ordered, patient has pulmonary nodule concerning for neoplastic lesion HPI <Rik Kelly NP - Last Filed: 05/14/22 10:22> General Mode of arrival: ambulatory. Date/Time Provider Initiated Documentation: 05/13/22 12:17. Limitations to Documentation: no limitations. Information obtained by: patient, family and RN notes reviewed. History of Present Illness 71 year old F presents to the emergency department with the chief complaint of Shortness of breath, described as moderate and similar to prior episodes, Quality is described as other (Denies pain), Patient started experiencing this day(s) (1) and it has been constant. Other factors that worsen symptoms (Activity) . Patient notes shortness of breath; denies chest pain. Patient did receive the following treatments prior to arrival, none Related Data Home Medications Medication Instructions Recorded Confirmed nitroglycerin 0.4 mg sublingual 0.4 mg sublingual PER PROTOCOL 11/29/12 05/13/22 tablet cholecalciferol (vitamin D3) 25 1,000 units PO DAILY 09/26/13 05/13/22 mcg (1,000 unit) tablet apixaban 5 mg tablet (Eliquis) 5 mg PO BID #60 tab-caps 10/21/16 05/13/22 calcium carbonate 430 mg calcium 1,000 mg PO DAILY 12/21/18 05/13/22 (1,000 mg) chewable tablet aspirin 81 mg tablet,delayed 81 mg PO DAILY #90 tabs 08/06/19 05/13/22 release (Adult Aspirin Regimen) metoprolol succinate 100 mg 100 mg PO DAILY #90 tabs 09/11/19 05/13/22 tablet,extended release 24 hr montelukast 10 mg tablet 10 mg PO DAILY 05/19/20 05/13/22 furosemide 40 mg tablet 40 mg PO DAILY 05/19/21 05/13/22 insulin regular human 100 unit/mL 24 unit subcut DAILY 11/19/21 05/13/22 (3 mL) subcutaneous pen (Novolin R Flexpen) lisinopril 10 mg tablet 5 mg PO DAILY 11/19/21 05/13/22 metoprolol succinate 25 mg 25 mg PO DAILY 11/19/21 05/13/22 tablet,extended release 24 hr betamethasone valerate 0.1 % 1 applic topical DAILY PRN 03/03/22 05/13/22 topical ointment liraglutide 0.6 mg/0.1 mL (18 mg/3 0.6 mg subcut DAILY 03/03/22 05/13/22 mL) subcutaneous pen injector (Victoza 3-Abdulaziz) furosemide 40 mg tablet (Lasix) 40 mg PO DAILY #7 tabs 05/13/22 metoprolol tartrate 25 mg tablet 25 mg PO DAILY PRN #30 tabs 05/13/22 Previous Rx's Medication Instructions Recorded aspirin 81 mg tablet,delayed 81 mg PO DAILY #90 tabs 08/06/19 release (Adult Aspirin Regimen) metoprolol succinate 100 mg 100 mg PO DAILY #90 tabs 09/11/19 tablet,extended release 24 hr furosemide 40 mg tablet (Lasix) 40 mg PO DAILY #7 tabs 05/13/22 metoprolol tartrate 25 mg tablet 25 mg PO DAILY PRN #30 tabs 05/13/22 Allergies Allergy/AdvReac Type Severity Reaction Status Date / Time clopidogrel [From Plavix] Allergy Unknown Verified 05/13/22 18:23 iohexol [From Omnipaque 140] Allergy Skin Rash Verified 05/13/22 18:23 pseudoephedrine Allergy Verified 05/13/22 18:23 [From Sudafed] Sulfa (Sulfonamide Allergy Verified 05/13/22 18:23 Antibiotics) erythromycin base AdvReac GI Verified 05/13/22 18:23 [Erythromycin Base] metal Allergy Intermediate Skin Rash Uncoded 05/13/22 18:23 General Stated Complaint: Palpitatns JOSE DE JESUS: 3 Review of Systems <Rik Kelly NP - Last Filed: 05/14/22 10:22> Constitutional Constitutional: Denies chills, Denies fever(s), Reports lethargy, Reports malaise and Denies weakness ENT Ears, Nose, Mouth, and Throat: Denies dizziness, Denies nasal congestion, Denies nasal discharge and Denies sore throat Cardiovascular Cardiovascular: Denies chest pain, Denies syncope, Reports rapid heart rate, Reports irregular heart rhythm, Reports leg edema, Denies lightheadedness and Reports dyspnea (Regardless of activity or rest) Respiratory Respiratory: Denies cough and Reports dyspnea (Regardless of activity or rest) Gastrointestinal Gastrointestinal: Denies abdominal pain, Denies diarrhea, Denies nausea and Denies vomiting Musculoskeletal Musculoskeletal: Denies back pain Integumentary/Breasts Skin/Breast: Denies rash Neurologic Neurologic: Denies dizziness, Denies syncope and Denies weakness PFS <Rik Kelly NP - Last Filed: 05/14/22 10:22> All Active Problems (Updated 05/13/22 @ 18:48 by BLEINDA Anthony) Peripheral neuropathy (Acute) H/O carpal tunnel syndrome (Chronic) Chronic low back pain (Chronic) Osteopenia (Chronic) Psoriasis (Chronic) Acute bronchitis (Acute) Sepsis (Acute) Prediabetes (Acute) Erythrocytosis (Chronic) Abnormal LFTs (Acute) Hypomagnesemia (Acute) Acute CHF (Acute) Discharge planning issues (Acute) DVT prophylaxis (Acute) Moderate pulmonary arterial systolic hypertension (Chronic) Acute renal insufficiency (Acute) Chronic atrial fibrillation with rapid ventricular response (Acute) Pneumonia (Acute) Acute kidney injury superimposed on chronic kidney disease (Acute) Post-menopausal bleeding (Acute) Atrial fibrillation (Chronic 04/29/14) Hypertension (Chronic) CAD (coronary artery disease) (Chronic) a. drug eluting stents Obesity (Chronic) BMI 33.0-33.9,adult (Chronic) Osteoarthritis (Chronic) H/O hypercalcemia (Chronic) H/O hyperparathyroidism (Chronic) a. Surgery to remove adenomas Elevated hematocrit (Chronic) Elevated hemoglobin (Chronic) Impaired fasting glucose (Chronic) Metabolic syndrome (Chronic) a. triglycerides greater than 300 and HDL less than 30 Hypertensive CKD (chronic kidney disease) (Chronic) A. probably stage 1 or 2 B. baseline creatinine 1.1 to 1.2 Surgical History H/O benign neoplasm resected H/O parathyroidectomy s/p 2 stents Hx of cardiac cath 2 stents Family History Other Heart disease Social History Smoking/Tobacco Use Status: Former Tobacco Use Quit Date: 07/18/06 Tobacco: How many years used: 30 Smoking risk assessment performed?: Yes Alcohol Intake: never Drug use: Never Substance use type: does not use What type of physical activity do you participate in: none Do you feel safe at home: Yes Additional Social history: lives alone. Exam <Rik Kelly NP - Last Filed: 05/14/22 10:22> Const General: cooperative, no acute distress and not ill appearing Orientation: alert, awake and oriented x3 HENMT Mouth: moist mucous membranes Resp Effort & Inspection: normal respiratory effort, able to speak in complete sentences and no respiratory distress Auscultation: clear to auscultation bilaterally Cardio Rate: tachycardic Rhythm: abnormal rhythm irregularly irregular Heart Sounds: S1 normal and S2 normal Pulses: radial pulses present and normal peripheral pulses Skin General skin exam: no rashes or lesions noted Neuro General: patient alert, patient awake, patient oriented x3 and moves all extremities Extrem General: pedal edema bilaterally pitting and 1+ Course <Rik Kelly NP - Last Filed: 05/14/22 10:22> Vital Signs Vital signs: Vital Signs Pulse 120 H 05/13/22 12:18 Respiratory Rate 14 05/13/22 12:18 Blood Pressure 124/105 H 05/13/22 12:18 Pulse Oximetry 95 05/13/22 12:18 Temperature Source Tympanic 05/13/22 12:18 Pulse 120 H 05/13/22 12:18 Respiratory Rate 14 05/13/22 12:18 Blood Pressure 124/105 H 05/13/22 12:18 Blood Pressure Position Sitting 05/13/22 12:18 Pulse Oximetry 95 05/13/22 12:18 Oxygen Delivery Method Room Air 05/13/22 12:18 Oxygen Flow Rate 0 05/13/22 12:18 Sign Out <Rik Kelly NP - Last Filed: 05/14/22 10:22> Sign Out Data: Sign Out Comment: Patient pending ambulation trial and further imaging for abnormal chest x ray Last updated by Rik Kelly NP at 05/13/22 15:54
[2022-05-13 12:54] LABS: Abs Immature Grans 0.02 10^3/uL (0.0-0.06); Absolute Basophil Count 0.06 10^3/uL (0.0-0.2); Absolute Eosinophil Count 0.09 10^3/uL (0.0-0.7); Absolute Lymphocyte Count 1.39 10^3/uL (1.2-3.4); Absolute Monocyte Count 0.78 10^3/uL (0.1-0.8); Absolute Neutrophil Count 6.18 10^3/uL (1.2-6.7); Basophils % 0.7; Eosinophils % 1.1; HCT 55.7 % (36.0-46.0); HGB 18.4 g/dL (11.2-15.7); Immature Grans % 0.2; Lymphocytes % 16.3; MCH 30.1 pg (27.0-33.0); MCV 91 fL (80-95); MPV 11.2 fL (8.0-11.0); Monocytes % 9.2; Neutrophils % 72.5; RDW 13.8 % (11.7-14.6); RDW-SD 46.1 fL; WBC 8.52 10^3/uL (4.4-10.8)
[2022-05-13 13:14] LABS: ALT 45 U/L (14-59); AST 33 U/L (15-37); Albumin 3.3 g/dL (3.4-5.0); Alkaline Phosphatase 101 U/L (46-116); Anion Gap 7.4 mmol/L (3-11); BUN 25 mg/dL (7-18); Bilirubin, Total 1.6 mg/dL (0.2-1.0); CO2 29.6 mmol/L (21.0-32.0); CREATININE 1.4 mg/dL (0.55-1.02); Calcium 9.3 mg/dL (8.5-10.1); Chloride 104 mmol/L (98-107); Estimated GFR 40.22 (mL/min/1.73m2); Glucose 146 mg/dL (74-106); Magnesium 2.2 mg/dL (1.8-2.4); NT-proBNP 2526 pg/mL (<300); Sodium 141 mmol/L (136-145); Total Protein 7.3 g/dL (6.4-8.2); Troponin I < 50 ng/L (<or=60)
[2022-05-13] MEDS: Metoprolol 5 MG/5 ML VIAL 2.5 MG IVP (13:16)
[2022-05-13 13:19] LABS: Platelet Count 228 10^3/uL (130-400); RBC 6.11 10^6/uL (3.93-5.22)
[2022-05-13] MEDS: Metoprolol 5 MG/5 ML VIAL IVP (14:45)
[2022-05-13] MEDS: Furosemide 40 MG/4 ML VIAL IVP (14:46)
--- NOTE | 2022-05-13 15:44 | DI.RAD_ITS ---
Exam(s) XR CHEST 1V IN DI DEPT EXAM: XR CHEST 1V IN DI DEPT CLINICAL HISTORY: AP Lordotic view TECHNIQUE: 2D digital imaging was performed of the chest. Two images were obtained. AP views were obtained. COMPARISON: No exams were available for comparison FINDINGS: MEDIASTINUM: Normal. HEART: Mild cardiomegaly. PULMONARY VASCULATURE: Normal. LUNGS: There is a persistent opacity in the right lung apex. PLEURAL SPACE: No pleural effusion or pneumothorax. BONE:Within normal limits for the patient's age. OTHER FINDINGS:Normal. IMPRESSION: Persistent right apical opacity. CT scan of the chest is recommended for further evaluation. DATA REPOSITORY: RADIATION DOSE DELIVERED:
[2022-05-13 16:06] LABS: Troponin I 52 ng/L (<or=60)
[2022-05-13] MEDS: dilTIAZem 25 MG/5 ML VIAL 15 MG IVP (17:02)
--- NOTE | 2022-05-13 17:30 | DI.CT_ITS ---
Exam(s) CT CHEST WO EXAM: CT CHEST WO CLINICAL HISTORY: right upper lobe opacity. TECHNIQUE: Imaging protocol: Axial computed tomography images were obtained and coronal and sagittal reformatted images were created and reviewed. COMPARISON: CT CHEST FOR PULMONARY EMBOLUS from 11/29/2012 CT CERVICAL SPINE WITHOUT CONTRA from 09/26/2013 CT HEAD WITHOUT CONTRAST from 09/26/2013 CR XR CHEST 1V IN DI DEPT from 05/13/2022 FINDINGS: Tracheobronchial tree: Patent where visualized. Pulmonary parenchyma: There is a 1.8 x 2.1 cm mildly spiculated mass in the right upper lobe. Primar y diagnostic concern is for primary bronchogenic carcinoma. No focal consolidating infiltrates are p resent. There is a faint ground-glass opacity in the right upper lobe. Emphysematous changes are pr esent in the lungs. Mediastinum and Dasha: There are enlarged lymph nodes seen in the mediastinum. The esophagus is unrem arkable.There is a small hiatal hernia. Thyroid gland: There is a 1 cm hypodense nodule in the right lobe of the thyroid gland. Nonemergent thyroid ultrasound is recommended. Pleura: No effusion or pneumothorax. Heart: Cardiomegaly is present. Coronary artery calcifications and/or stents are present. No perica rdial effusion. Aorta: Thoracic aorta non-dilated. Atherosclerosis is present. Upper abdomen: There is a left renal cyst. There is diverticulosis seen in the transverse colon. Lymph nodes: Within normal limits. Soft tissues: Unremarkable. Bones:Within normal limits for the patient's age. IMPRESSION: 1. 1.8 x 2.1 cm right upper lobe pleural base mass suspicious for primary bronchogenic neoplasm. 2. Mildly enlarged mediastinal lymph nodes. 3. Ground-glass opacity in the right upper lobe. This may represent small airways disease or infecti on. RADIATION DOSE DELIVERED: 598.91mGy.cm Total DLP 598.91mGy.cm Total DLP DATA REPOSITORY: All CT scans at this facility are submitted to the National Radiology Data Registry (NRDR) Dose Index Registry (DIR) with the [employer] (A[employer]). RADIATION OPTIMIZATION: All CT scans at this facility use at least one of these dose optimization te chniques: automated exposure control; mA and/or kV adjustment per patient size (includes targeted exa ms where dose is matched to clinical indication); or iterative reconstruction.
--- NOTE | 2022-05-13 18:15 | DI.VRAD_ITS ---
PROCEDURE INFORMATION: Exam: CT Chest Without Contrast; Diagnostic Exam date and time: 05/13/2022 5:49 PM Age: 71 years old Clinical indication: Other: Right upper lobe opacity; Prior surgery; Surgery date: 6+ months TECHNIQUE: Imaging protocol: Diagnostic computed tomography of the chest without contrast. 3D rendering (Not supervised by radiologist): MIP and/or 3D reconstructed images were created by the technologist. COMPARISON: CR XR CHEST 1V IN DI DEPT 05/13/2022 4:01 PM FINDINGS: Lungs: There is heterogeneous attenuation of the pulmonary parenchyma, consistent with air trapping from underlying small airways disease. Pleural spaces: There is no evidence of pneumothorax. There are no pleural effusions present. Pleural based right upper lobe pulmonary nodule with irregular borders measuring 19 x 17 x 16 mm highly suspicious for neoplastic process. Heart: There is severe atherosclerotic calcification of the coronary arteries. No evidence of pericardial effusion. Lymph nodes: Mild adenopathy present within the paratracheal and peribronchial regions. Vasculature: Moderate atherosclerotic plaquing of the transverse thoracic aorta. Moderate atherosclerotic plaquing of the origins of the great vessels. Bones/joints: Sternotomy wires and mediastinal surgical clips are present, consistent with previous coronary arterial bypass grafting. Soft tissues: Unremarkable. IMPRESSION: 1. Pleural based right upper lobe pulmonary nodule with irregular borders measuring 19 x 17 x 16 mm highly suspicious for neoplastic process. 2. There is heterogeneous attenuation of the pulmonary parenchyma, consistent with air trapping from underlying small airways disease. 3. Mild adenopathy present within the paratracheal and peribronchial regions. 4. Atherosclerotic peripheral vascular disease. 5. Atherosclerotic coronary artery disease Dictated and Authenticated by: Errol Last MD. Ordering:PHILIP Ramirez MD
[2022-05-13] MEDS: Metoprolol 25 MG TAB PO (18:21)
== END 2022-05-13 19:08 | disposition home or self-care (01) ==
PROVIDERS: Nurse Practitioner Family; Emergency Provider Physician Assistant; PCP Nurse Practitioner Family
DX: I48.91 Unspecified atrial fibrillation (principal); I50.9 Heart failure, unspecified; R06.02 Shortness of breath; R73.03 Prediabetes
CPT/HCPCS: 71250; 80053; 93005; 96374; 96375; 96376; 99285; 71045; 71046; 83735; 83880; 84484; 85025; 93010; 99284; J1940

== ENCOUNTER → 2022-05-20 09:22 | Outpatient (BNVA) | payer MEDICARE, OTHER, SELFPAY | PROVIDERS: PCP Nurse Practitioner Family; Visit Provider Internal Medicine Cardiovascular Disease | DX: I48.21 Permanent atrial fibrillation (principal); I12.9 Hypertensive chronic kidney disease with stage 1 through stage 4 chronic kidney disease, or unspecified chronic kidney disease; E11.9 Type 2 diabetes mellitus without complications; I25.10 Atherosclerotic heart disease of native coronary artery without angina pectoris | CPT/HCPCS: 99214 ==

== ENCOUNTER → 2022-05-31 01:34 | Outpatient (CLI) | payer MEDICARE, SELFPAY ==
--- NOTE | 2022-05-31 11:15 | DI.MAMMO_ITS ---
Exam(s) MAMMO SCREENING EXAM: MAMMO SCREENING CLINICAL HISTORY: SCREENING, Z12.31 TECHNIQUE: Mammograms were interpreted according to the usual protocol including computer analysis w Disconnect CAD system, tomosynthesis and C-view imaging. COMPARISON: 2014 through 2021 FINDINGS: The breasts are composed of scattered fibroglandular densities, Breast Density category B. No suspicious masses or suspicious microcalcifications are seen. No skin thickening or abnormal axillary lymph nodes are seen. There has been no significant change from prior exams. IMPRESSION: BI-RADS Category 1, Negative mammogram Yearly screening mammography is recommended. Breast Density - Category B, scattered fibroglandular densities. A negative radiographic report should not delay biopsy if a dominant or clinically suspicious mass is present. Up to ten percent of cancers are not identified on mammography. A negative report may reinforce clinical impression. Adenosis and dense breasts may obscure an underlying neoplasm. False positive reports average 6 to 10%. Patient will receive a letter notifying them of these results.
== END ==
PROVIDERS: PCP Nurse Practitioner Family; Visit Provider Nurse Practitioner Family
DX: Z12.31 Encounter for screening mammogram for malignant neoplasm of breast (principal)
CPT/HCPCS: 77063; 77067

== ENCOUNTER 2022-06-15 13:43 | Outpatient (REF) | payer MEDICARE, SELFPAY ==
[2022-06-15 15:07] LABS: Anion Gap 8.1 mmol/L (3-11); BUN 26 mg/dL (7-18); CO2 30.9 mmol/L (21.0-32.0); CREATININE 1.3 mg/dL (0.55-1.02); Calcium 9.1 mg/dL (8.5-10.1); Chloride 100 mmol/L (98-107); Estimated GFR 43.96 (mL/min/1.73m2); Glucose 164 mg/dL (74-106); NT-proBNP 1848 pg/mL (<300); Potassium 3.8 mmol/L (3.5-5.1); Sodium 139 mmol/L (136-145)
== END 2022-06-15 13:44 | disposition home or self-care (01) ==
LOC: NCHCN 13:43
PROVIDERS: PCP Nurse Practitioner Family; Visit Provider Internal Medicine
DX: I50.9 Heart failure, unspecified (principal); E11.9 Type 2 diabetes mellitus without complications; R91.8 Other nonspecific abnormal finding of lung field; I48.91 Unspecified atrial fibrillation
CPT/HCPCS: 80048; 83880

== ENCOUNTER 2022-06-21 04:37 | Outpatient (CLI) | payer MEDICARE, SELFPAY ==
[2022-06-21] MEDS: Albuterol HFA 18 GM 200 PUFF INH IH (11:29)
[2022-06-21] MEDS: Inhaler, Assist Device 1 EACH MC (11:30)
--- NOTE | 2022-06-22 16:20 | W.PFT ---
Date of service: 06/21/22 Time of Service: 10:07 Pulmonary Function Test Result Requesting Provider Olesya Indications: Emphysema Interpretation Spirometry: There is moderate airflow limitation. There is no significant bronchodilator response. The FVC is low. Lung Volumes: Normal lung volumes Diffusion Capacity: Reduced diffusion. Airway Pressure: Increased airways resistance. Impression Moderate airflow obstruction with a reduced diffusion may represent COPD with emphysema. The low FVC is due to airflow obstruction. Clinical Correlation therefore is recommended.
== END 2022-06-21 04:38 | disposition home or self-care (01) ==
LOC: RT 04:38
PROVIDERS: PCP Nurse Practitioner Family; Visit Provider Student in an Organized Health Care Education/Training Program
DX: R91.1 Solitary pulmonary nodule (principal); J43.8 Other emphysema; J98.4 Other disorders of lung; J98.8 Other specified respiratory disorders
CPT/HCPCS: 94060; 94726; 94729

== ENCOUNTER 2022-06-25 08:04 | Day surgery (SDC) | payer MEDICARE, SELFPAY ==
[2022-06-25 08:20] VITALS: BP 145/112; PULSE 88; RESP 18; TEMP 35.9; O2SAT 95
[2022-06-25] MEDS: Tropicam./Phenyleph. (1/2.5%) 5 ML BTL OS ×3 (08:48→09:07)
--- NOTE | 2022-06-25 10:08 | ANES.PREOP_ITS ---
General Info Date of Service Date Performed: 06/25/22 Height: 5 ft 3.5 in Weight: 89.3 kg Body Mass Index (BMI): 34.3 Surgical Procedure: Operation Date: 06/25/22 10:40 Proposed Procedure Side Surgeon p Cataract Extraction with IOL Implant Left Lester Menjivar MD Actual Procedure Side Surgeon p Cataract Extraction with IOL Implant Left Lester Menjivar MD Pre-Op Diagnosis Post-Op Diagnosis CATARACT LEFT EYE CATARACT LEFT EYE Meds Allergies and Home Medications Allergies Allergy/AdvReac Type Severity Reaction Status Date / Time clopidogrel [From Plavix] Allergy Unknown Verified 06/25/22 08:45 iohexol [From Omnipaque 140] Allergy Skin Rash Verified 06/25/22 08:45 pseudoephedrine Allergy Verified 06/25/22 08:45 [From Sudafed] Sulfa (Sulfonamide Allergy Verified 06/25/22 08:45 Antibiotics) erythromycin base AdvReac GI Verified 06/25/22 08:45 [Erythromycin Base] metal Allergy Intermediate Skin Rash Uncoded 06/25/22 08:45 Home Medication Medication Instructions Recorded nitroglycerin 0.4 mg sublingual 0.4 mg sublingual PER PROTOCOL 11/29/12 tablet cholecalciferol (vitamin D3) 25 1,000 units PO DAILY 09/26/13 mcg (1,000 unit) tablet apixaban 5 mg tablet (Eliquis) 5 mg PO BID #60 tab-caps 10/21/16 calcium carbonate 430 mg calcium 1,000 mg PO DAILY 12/21/18 (1,000 mg) chewable tablet aspirin 81 mg tablet,delayed 81 mg PO DAILY #90 tabs 08/06/19 release (Adult Aspirin Regimen) metoprolol succinate 100 mg 100 mg PO DAILY #90 tabs 09/11/19 tablet,extended release 24 hr montelukast 10 mg tablet 10 mg PO HS 05/19/20 insulin regular human 100 unit/mL 24 unit subcut DAILY 11/19/21 (3 mL) subcutaneous pen (Novolin R Flexpen) betamethasone valerate 0.1 % 1 applic topical DAILY PRN 03/03/22 topical ointment liraglutide 0.6 mg/0.1 mL (18 mg/3 0.6 mg subcut DAILY 03/03/22 mL) subcutaneous pen injector (MessageOne 3-Abdulaziz) diltiazem HCl 120 mg capsule,24 120 mg PO DAILY #90 caps 05/20/22 hr,extended release furosemide 40 mg tablet (Lasix) 60 mg PO DAILY 05/20/22 lisinopril 10 mg tablet 10 mg PO DAILY 05/20/22 metoprolol succinate 25 mg 50 mg PO DAILY 05/20/22 tablet,extended release 24 hr metoprolol tartrate 25 mg tablet 25 mg PO DAILY PRN 05/20/22 tiotropium bromide 1.25 2 spray inhalation DAILY 06/25/22 mcg/actuation mist for inhalation (Spiriva Respimat) Current Visit Medications: Current Medications Generic Name Dose Route Start Last Admin Trade Name Freq PRN Reason Stop Dose Admin Acetaminophen 1,000 mg 06/25/22 06:00 Acetaminophen 500 Mg Tab PO Q4H PRN PRN Miscellaneous Medication 0 ml 06/25/22 06:00 Prednisolone 1%, Moxifloxacin 0.5%, Nepafenac 0.1% 5ml Btl OS DIRECTED ILIANA Miscellaneous Medication 0 ml 06/25/22 06:00 06/25/22 09:07 Tropicam./Phenyleph. (1/2.5%) 5 Ml Btl OS 1 drp DIRECTED ILIANA Administration Tetracaine HCl 0 ml 06/25/22 06:00 Tetracaine 0.5% 4 Ml Btl OS DIRECTED ILIANA PFSH Active Problems Active Problems: Problem Status Onset Code Posterior subcapsular age-related cataract of left eye H25.042 Nuclear sclerotic cataract of left eye H25.12 Atrial fibrillation 04/29/14 I48.91 Hypertension I10 CAD (coronary artery disease) I25.10 Obesity E66.9 BMI 33.0-33.9,adult Z68.33 Tobacco abuse Z72.0 Osteoarthritis M19.90 H/O carpal tunnel syndrome Z86.69 Chronic low back pain M54.5, G89.29 H/O hypercalcemia Z86.39 H/O hyperparathyroidism Z86.39 Osteopenia M85.80 Psoriasis L40.9 Elevated hematocrit R71.8 Elevated hemoglobin D58.2 Impaired fasting glucose R73.01 Metabolic syndrome E88.81 Hypertensive CKD (chronic kidney disease) I12.9, N18.9 Sepsis A41.9 Prediabetes R73.03 Rapid atrial fibrillation I48.91 Hemoptysis R04.2 Erythrocytosis D75.1 Abnormal LFTs R94.5 Hypomagnesemia E83.42 Acute CHF I50.9 Discharge planning issues Z02.9 DVT prophylaxis Z29.9 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 Acute renal insufficiency N28.9 Post-menopausal bleeding N95.0 Septic shock A41.9, R65.21 Chronic atrial fibrillation with rapid ventricular response I48.20 Pneumonia J18.9 Acute respiratory failure with hypoxia J96.01 Acute kidney injury superimposed on chronic kidney disease N17.9, N18.9 Hypokalemia E87.6 Peripheral neuropathy G62.9 Lung nodule R91.1 CHF (congestive heart failure) I50.9 Exertional shortness of breath R06.02 Diabetes mellitus E11.9 Fatigue R53.83 Increased sputum production R09.3 Snoring R06.83 Seasonal allergies J30.2 Hyperlipidemia E78.5 Skin lesion L98.9 Emphysema lung J43.9 Thyroid nodule E04.1 Medical History Medical History (Updated 06/25/22 @ 08:57 by Lester Menjivar MD) Acute bronchitis PONV (postoperative nausea and vomiting) Medical History Comments:: claustrophobia Surgical History Surgical History H/O benign neoplasm resected H/O parathyroidectomy s/p 2 stents Hx of cardiac cath 2 stents Tobacco Smoking/Tobacco Use Status: Former Tobacco Use Alcohol Alcohol Intake: never Substance Use Substance use: Never Substance use type: does not use Vital Signs and Lab Results Vital Signs Most Recent Vital Signs in EMR: Most Recent Vital Signs Temp Pulse Resp BP Pulse Ox 35.9 C L 88 18 145/112 H 95 06/25/22 08:20 06/25/22 08:20 06/25/22 08:20 06/25/22 08:20 06/25/22 08:20 Point of Care Results Point of Care Results: Finger Stick Blood Glucose 164 06/25/22 08:29 Lab Results Blood Type / Crossmatch: No Data to Display Complete Blood Count: No Data to Display Complete Metabolic Panel: Sodium 139 mmol/L (136-145) 06/15/22 11:56 Potassium 3.8 mmol/L (3.5-5.1) 06/15/22 11:56 Chloride 100 mmol/L (98-107) 06/15/22 11:56 Carbon Dioxide 30.9 mmol/L (21.0-32.0) 06/15/22 11:56 BUN 26 mg/dL (7-18) H 06/15/22 11:56 Creatinine 1.3 mg/dL (0.55-1.02) H 06/15/22 11:56 Est GFR (CKD-EPI 2020) 43.96 (mL/min/1.73m2) 06/15/22 11:56 Calcium 9.1 mg/dL (8.5-10.1) 06/15/22 11:56 Glucose 164 mg/dL (74-106) H 06/15/22 11:56 Liver Function Panel: No Data to Display Coagulation Panel: No Data to Display Cardiac Panel: NT-Pro-B Natriuret Pep 1848 pg/mL (<300) H 06/15/22 Arterial Blood Gas: No Data to Display Venous Blood Gas: No Data to Display Pancreas Panel: No Data to Display Thyroid Panel: No Data to Display Infectious Disease: No Data to Display Blood Cultures: No Data to Display Toxicology Panel: No Data to Display Anesthesia Assessment and Plan Anesthesia History Personal History: PONV Family History: No Family History of Anesthesia Complications Exercise Tolerance Exercise Tolerance: Metabolic Equivalents>4 Pertinent Negatives Pertinent Negatives: No Symptoms of GERD, No Major Cardiovascular Symptoms or Complaints (2 stents, atrial fibrillation ), No Major Pulmonary Symptoms or Complaints (Quit smoking in the 80's) and No History of CVA/TIA Cardiac & Pulmonary Exam Cardiac Exam: Normal S1/S2 Heart Sounds Pulmonary Exam: Clear Bilateral Breath Sounds Implantable Cardiac Device Does patient have a Pacemaker or an ICD?: No Airway Exam Known Difficult Airway: No Mallampati Class: 1 Mouth Opening: Normal (> 3cm) Thyromental Distance: Less than 3 cm Neck Range of Motion: Full ROM Neck Circumference: Thick Teeth Condition: Removable Dentures/Plates Upper ASA Classification ASA Score: ASA 3 Emergency Case?: No NPO Status NPO Status: NPO Clears >2 hours, Solids >8 hours Anesthesia Plan Resuscitation Status: Full Code Anesthesia Technique: MAC Anesthesia Airway Planned: Natural Airway Monitors Used: Standard Monitors
[2022-06-25 10:11] VITALS: BMI 34.3
[2022-06-25] MEDS: Tetracaine 0.5% 4 ML BTL OS (10:29)
[2022-06-25] MEDS: Balanced Salt Soln.-PLUS 500 ML BAG (10:29)
[2022-06-25] MEDS: Lidocaine 2% Jelly 6 ML SYR (10:30)
[2022-06-25] MEDS: Povidone-Iodine Ophth 30 ML BTL (10:31)
[2022-06-25] MEDS: Duovisc Viscoelastic System EACH 1 EACH (10:32)
[2022-06-25 10:48] VITALS: BP 102/77; PULSE 60; RESP 24; TEMP 36.1; O2SAT 91
--- NOTE | 2022-06-25 10:48 | W.PM.DSUDISC ---
Date of service: 06/25/22 Time of Service: 10:48 Discharge Plan Disposition Patient Disposition: HOME Condition: Good Discharge Details Attending Provider: Lester Menjivar Primary Care Provider: Esther Verma Home Meds and New Rx's Prescriptions: No Action Novolin R Flexpen 100 unit/mL (3 mL) insulin pen 24 unit subcut DAILY metoprolol succinate 25 mg tablet extended release 24 hr 50 mg PO DAILY Rx Instructions: takes with 100 mg for total 150 mg daily aspirin [Adult Aspirin Regimen] 81 mg tablet,delayed release (DR/EC) 81 mg PO DAILY Qty: 90 0RF metoprolol succinate 100 mg tablet extended release 24 hr 100 mg PO DAILY Qty: 90 6RF furosemide [Lasix] 40 mg tablet 60 mg PO DAILY metoprolol tartrate 25 mg tablet 25 mg PO DAILY PRN Rx Instructions: hr>110 diltiazem HCl 120 mg capsule,extended release 24 hr 120 mg PO DAILY Qty: 90 3RF Victoza 3-Abdulaziz 0.6 mg/0.1 mL (18 mg/3 mL) pen injector 0.6 mg subcut DAILY Eliquis 5 MG tablet 5 mg PO BID Qty: 60 montelukast 10 mg tablet 10 mg PO HS betamethasone valerate 0.1 % ointment 1 applic topical DAILY PRN nitroglycerin 0.4 MG tablet, sublingual 0.4 mg Sublingual PER PROTOCOL Rx Instructions: needs script renewed cholecalciferol (vitamin D3) 1,000 UNITS tablet 1,000 units PO DAILY calcium carbonate 430 mg calcium (1,000 mg) Tablet,Chewable 1,000 mg PO DAILY lisinopril 10 mg tablet 10 mg PO DAILY Spiriva Respimat 1.25 mcg/actuation mist 2 spray INHALATION DAILY Discharge Instructions Stand Alone Forms: Post-op Topical Cataract, Press Ganey (DSU)
--- NOTE | 2022-06-25 10:50 | ROE_ITS ---
Date of service: 06/25/22 Time of Service: 10:50 Operative Note Operative Note DATE OF PROCEDURE: 06/25/22 PRE-OP DIAGNOSIS: Nuclear/posterior subcapsular cataract, left eye POST-OP DIAGNOSIS: same PROCEDURE: Cataract extraction using phacoemulsification with intraocular lens implant, left eye SURGEON: Lester Menjivar ANESTHESIA TYPE: Local By Surgeon and MAC Refer to Anesthesia Record PATHOLOGY: none sent COMPLICATIONS: None Patient was transported to: same day Patient's condition: stable Implants: Costa [employer] / [employer] Tecnis [id number] Indications: Progressive decreased vision due to cataract, left eye Procedure Description: CATARACT SURGERY OPERATIVE REPORT PREOPERATIVE DIAGNOSIS: 1. Nuclear/posterior subcapsular cataract, left eye POSTOPERATIVE DIAGNOSIS: Same OPERATION: 1. Cataract extraction using phacoemulsification with posterior chamber intraocular lens implant, left eye. IOL: IOL Dye Colorist Formulator/Model: Costa & Costa / DARINEL Tecnis [id number] IOL Power: + 19.5 diopters IOL Serial Number: [id number] Optic Diameter: 6.0 mm Haptic/Overall Diameter: 13.0 mm PHACO INFO: Jake I-lightingurion Vision System with OZil and Active Fluidics Cumulative Dispersed Energy (CDE): 12.93 seconds SURGEON: Lester Menjivar MD, ROSALBA ANESTHESIA: Monitored A [facility] (MAC), with local sub-tenon's anesthetic infiltration COMPLICATIONS: None SPECIMENS: None INDICATIONS FOR PROCEDURE: The patient is a 71-year-old lady with history of diminished visual acuity in her left eye secondary to the development of nuclear and posterior subcapsular cataract. The option of cataract surgery was offered to the patient and she wished to proceed. PROCEDURE: The correct surgical eye was identified and marked as the left eye and the pupil was dilated in the preoperative area using mydriatics and cycloplegics. The dilated pupil size was 6.5 mm. Oral sedation was administered in the form of an Imprimis MKO Melt (midazolam 3mg/ketamine 25mg/ondansetron 2mg). The patient was brought to the operating room where cardiopulmonary monitoring was instituted and surgical time-out was performed, confirming the correct operative eye and IOL power. Topical anesthesia was administered and ophthalmic povidone-iodine 5% was instilled into the conjunctival fornices. Lidocaine gel was applied to the cornea and the kaylah-ocular area was prepped with Betadine 10% solution and draped in the usual sterile fashion for intraocular surgery, including an aperture drape. A Tegaderm transparent film dressing was cut in half and used to cover the lashes and lid margins. Care was taken to sequester the lashes and lid margins under the Tegaderm dressing. A lid speculum was placed between the lids of the operative eye and the Jake LuxOR Revalia operating microscope was maneuvered into position. Carol scissors were then used to make a conjunctival buttonhole approximately 6mm posterior to the limbus in the inferonasal quadrant. Blunt dissection was carried out to expose bare sclera, and a blunt-tipped sub-tenon?s anesthesia cannula was introduced and passed posteriorly along the globe where non- preserved plain lidocaine was injected into posterior sub-Tenon?s space. A sideport knife was used to make a paracentesis port superiorly/superiortemporally. Intraocular phenylephrine/lidocaine was injected int the anterior chamber.. The anterior chamber was filled with viscoelastic. A keratome knife was used to construct a 2-plane near-clear corneal tunnel extending 2.0mm into clear cornea temporally. A flap was raised on the anterior capsule and capsulorhexis forceps were used to complete a continuous curvilinear capsulorhexis of 5.0 mm. Balanced salt solution was then used to perform cortical cleaving hydrodissection and nuclear hydrodelineation until the lens could be freely rotated within the capsular bag. The lens nucleus was then disassembled and removed within the capsular bag and iris plane using phacoemulsification. Residual cortical material was removed using the 45-degree angled silicone I/A tip with 0.3mm port. The posterior capsule was carefully polished to remove as much residual lens epithelial cells as safely possible. The capsular bag was th en inflated and the anterior chamber deepened with viscoelastic. The lens implant described above was inserted into the capsular bag using the DARINEL [place]ash[place] Injector. A Kuglen hook was used to dial the IOL into position. Residual viscoelastic was then removed first from posterior to the IOL, then from the anterior chamber using the I/A handpiece. The lens implant was noted to center nicely within the capsular bag. The incisions were stromally hydrated, and the anterior chamber was reformed using BSS. Then 0.5cc of moxifloxacin 1.0mg/ml were injected into the capsular bag and anterior chamber. The incisions were checked with a Weck spear and found to be secure. Several drops of ophthalmic povidone-iodine 5% were then applied to the eye followed by two drops of Imprimis combination prednisolone/moxifloxacin/nepafenac solution. The drapes were removed and a clear plastic protective eye shield was placed over the eye. The patient was then returned to Same Day Surgery in stable con dition.
--- NOTE | 2022-06-25 10:54 | W.ANESPOSTOP ---
Postoperative Evaluation Date, Time and Location Date Performed: 06/25/22 Time Performed: 10:55 Patient Location: Day Surgery Unit Vital Signs Most Recent Imported Vital Signs: Most Recent Vital Signs Temp Pulse Resp BP Pulse Ox 35.9 C L 88 18 145/112 H 95 06/25/22 08:20 06/25/22 08:20 06/25/22 08:20 06/25/22 08:20 06/25/22 08:20 Most Recent Manually Entered Vital Signs: Adult Blood Pressure: 102/77 Heart Rate: 55 Respirations: 12 Oxygen Saturation (%): 92 Temperature (C): 36.1 C Pain Score (0-10 Scale): 0 Pain Score Most Recent Pain Score: Most Recent Pain Score Pain Level 0 06/25/22 08:20 Assessment Mental Status: Arousable with meaningful communication Airway and Respiratory Function: Patent airway with normal (patient baseline) respiratory exam Cardiovascular Function: Hemodynamically Stable Hydration Status: Adequately Hydrated Nausea & Vomiting: No Nausea or Vomiting Pain: Pt. Denies Any Pain Peripheral Nerve Block: Patient did not receive a nerve block
[2022-06-25 10:55] VITALS: BP 102/77; PULSE 55; RESP 12; TEMPC 36.1; O2SAT 92
[2022-06-25 11:25] VITALS: BP 111/87; PULSE 56; RESP 18; TEMP 36; O2SAT 90
== END 2022-06-25 11:42 | disposition home or self-care (01) ==
LOC: SUR 08:04
PROVIDERS: PCP Nurse Practitioner Family; Visit Provider Ophthalmology
PROC: (CPT 66984; principal; 2022-06-25 10:30)
DX: H25.12 Age-related nuclear cataract, left eye (principal); E11.9 Type 2 diabetes mellitus without complications; Z79.4 Long term (current) use of insulin
CPT/HCPCS: 66984; V2632

== ENCOUNTER 2022-07-05 10:16 | Day surgery (SDC) | payer MEDICARE, SELFPAY ==
[2022-07-05 10:50] VITALS: BP 140/110; PULSE 77; RESP 18; TEMP 36.4; O2SAT 93
[2022-07-05 11:45] VITALS: BP 122/84
[2022-07-05] MEDS: Tropicam./Phenyleph. (1/2.5%) 5 ML BTL OD ×3 (11:46→11:57)
--- NOTE | 2022-07-05 12:15 | W.ANESPRE ---
General Info Date of Service Date Performed: 07/05/22 Height: 5 ft 3.5 in Weight: 90.2 kg Body Mass Index (BMI): 34.7 Surgical Procedure: Operation Date: 07/05/22 13:40 Proposed Procedure Side Surgeon p Cataract Extraction with IOL Implant Right Lester Menjivar MD Meds Allergies and Home Medications Allergies Allergy/AdvReac Type Severity Reaction Status Date / Time clopidogrel [From Plavix] Allergy Unknown Verified 07/05/22 11:29 iohexol [From Omnipaque 140] Allergy Skin Rash Verified 07/05/22 11:29 pseudoephedrine Allergy Verified 07/05/22 11:29 [From Sudafed] Sulfa (Sulfonamide Allergy Verified 07/05/22 11:29 Antibiotics) erythromycin base AdvReac GI Verified 07/05/22 11:29 [Erythromycin Base] metal Allergy Intermediate Skin Rash Uncoded 07/05/22 11:29 Home Medication Medication Instructions Recorded nitroglycerin 0.4 mg sublingual 0.4 mg sublingual PER PROTOCOL 11/29/12 tablet cholecalciferol (vitamin D3) 25 1,000 units PO DAILY 09/26/13 mcg (1,000 unit) tablet apixaban 5 mg tablet (Eliquis) 5 mg PO BID #60 tab-caps 10/21/16 calcium carbonate 430 mg calcium 1,000 mg PO DAILY 12/21/18 (1,000 mg) chewable tablet aspirin 81 mg tablet,delayed 81 mg PO DAILY #90 tabs 08/06/19 release (Adult Aspirin Regimen) metoprolol succinate 100 mg 100 mg PO DAILY #90 tabs 09/11/19 tablet,extended release 24 hr montelukast 10 mg tablet 10 mg PO HS 05/19/20 insulin regular human 100 unit/mL 24 unit subcut DAILY 11/19/21 (3 mL) subcutaneous pen (Novolin R Flexpen) betamethasone valerate 0.1 % 1 applic topical DAILY PRN 03/03/22 topical ointment liraglutide 0.6 mg/0.1 mL (18 mg/3 0.6 mg subcut HS 03/03/22 mL) subcutaneous pen injector (Victoza 3-Abdulaziz) diltiazem HCl 120 mg capsule,24 120 mg PO DAILY #90 caps 05/20/22 hr,extended release furosemide 40 mg tablet (Lasix) 60 mg PO DAILY 05/20/22 lisinopril 10 mg tablet 10 mg PO DAILY 05/20/22 metoprolol succinate 25 mg 50 mg PO DAILY 05/20/22 tablet,extended release 24 hr metoprolol tartrate 25 mg tablet 25 mg PO DAILY PRN 05/20/22 tiotropium bromide 1.25 2 spray inhalation DAILY 06/25/22 mcg/actuation mist for inhalation (Spiriva Respimat) Current Visit Medications: Current Medications Generic Name Dose Route Start Last Admin Trade Name Freq PRN Reason Stop Dose Admin Acetaminophen 1,000 mg 07/05/22 11:26 Acetaminophen 500 Mg Tab PO Q4H PRN PRN Miscellaneous Medication 0 ml 07/05/22 06:00 Prednisolone 1%, Moxifloxacin 0.5%, Nepafenac 0.1% 5ml Btl OD DIRECTED ILIANA Miscellaneous Medication 0 ml 07/05/22 06:00 07/05/22 11:57 Tropicam./Phenyleph. (1/2.5%) 5 Ml Btl OD 1 drp DIRECTED ILIANA Administration Tetracaine HCl 0 ml 07/05/22 06:00 Tetracaine 0.5% 4 Ml Btl OD DIRECTED ILIANA PFSH Active Problems Active Problems: Problem Status Onset Code Posterior subcapsular age-related cataract, right eye H25.041 Nuclear sclerotic cataract of right eye H25.11 Posterior subcapsular age-related cataract of left eye H25.042 Nuclear sclerotic cataract of left eye H25.12 Atrial fibrillation 04/29/14 I48.91 Hypertension I10 CAD (coronary artery disease) I25.10 Obesity E66.9 BMI 33.0-33.9,adult Z68.33 Tobacco abuse Z72.0 Osteoarthritis M19.90 H/O carpal tunnel syndrome Z86.69 Chronic low back pain M54.5, G89.29 H/O hypercalcemia Z86.39 H/O hyperparathyroidism Z86.39 Osteopenia M85.80 Psoriasis L40.9 Elevated hematocrit R71.8 Elevated hemoglobin D58.2 Impaired fasting glucose R73.01 Metabolic syndrome E88.81 Hypertensive CKD (chronic kidney disease) I12.9, N18.9 Sepsis A41.9 Prediabetes R73.03 Rapid atrial fibrillation I48.91 Hemoptysis R04.2 Erythrocytosis D75.1 Abnormal LFTs R94.5 Hypomagnesemia E83.42 Acute CHF I50.9 Discharge planning issues Z02.9 DVT prophylaxis Z29.9 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 Acute renal insufficiency N28.9 Post-menopausal bleeding N95.0 Septic shock A41.9, R65.21 Chronic atrial fibrillation with rapid ventricular response I48.20 Pneumonia J18.9 Acute respiratory failure with hypoxia J96.01 Acute kidney injury superimposed on chronic kidney disease N17.9, N18.9 Hypokalemia E87.6 Peripheral neuropathy G62.9 Lung nodule R91.1 CHF (congestive heart failure) I50.9 Exertional shortness of breath R06.02 Diabetes mellitus E11.9 Fatigue R53.83 Increased sputum production R09.3 Snoring R06.83 Seasonal allergies J30.2 Hyperlipidemia E78.5 Skin lesion L98.9 Emphysema lung J43.9 Thyroid nodule E04.1 Medical History Medical History Acute bronchitis PONV (postoperative nausea and vomiting) Medical History Comments:: claustrophobia Surgical History Surgical History H/O benign neoplasm resected H/O parathyroidectomy s/p 2 stents Hx of cardiac cath 2 stents Tobacco Smoking/Tobacco Use Status: Former Tobacco Use Alcohol Alcohol Intake: never Substance Use Substance use: Never Substance use type: does not use Vital Signs and Lab Results Vital Signs Most Recent Vital Signs in EMR: Most Recent Vital Signs Temp Pulse Resp BP Pulse Ox 36.4 C L 77 18 122/84 93 07/05/22 10:50 07/05/22 10:50 07/05/22 10:50 07/05/22 11:45 07/05/22 10:50 Point of Care Results Point of Care Results: Finger Stick Blood Glucose 141 07/05/22 11:04 Lab Results Blood Type / Crossmatch: No Data to Display Complete Blood Count: No Data to Display Complete Metabolic Panel: Sodium 139 mmol/L (136-145) 06/15/22 11:56 Potassium 3.8 mmol/L (3.5-5.1) 06/15/22 11:56 Chloride 100 mmol/L (98-107) 06/15/22 11:56 Carbon Dioxide 30.9 mmol/L (21.0-32.0) 06/15/22 11:56 BUN 26 mg/dL (7-18) H 06/15/22 11:56 Creatinine 1.3 mg/dL (0.55-1.02) H 06/15/22 11:56 Est GFR (CKD-EPI 2020) 43.96 (mL/min/1.73m2) 06/15/22 11:56 Calcium 9.1 mg/dL (8.5-10.1) 06/15/22 11:56 Glucose 164 mg/dL (74-106) H 06/15/22 11:56 Liver Function Panel: No Data to Display Coagulation Panel: No Data to Display Cardiac Panel: NT-Pro-B Natriuret Pep 1848 pg/mL (<300) H 06/15/22 Arterial Blood Gas: No Data to Display Venous Blood Gas: No Data to Display Pancreas Panel: No Data to Display Thyroid Panel: No Data to Display Infectious Disease: No Data to Display Blood Cultures: No Data to Display Toxicology Panel: No Data to Display Anesthesia Assessment and Plan Anesthesia History Personal History: PONV Family History: No Family History of Anesthesia Complications Exercise Tolerance Exercise Tolerance: Metabolic Equivalents>4 Pertinent Negatives Pertinent Negatives: No Symptoms of GERD Cardiac & Pulmonary Exam Cardiac Exam: Normal S1/S2 Heart Sounds Pulmonary Exam: Clear Bilateral Breath Sounds Implantable Cardiac Device Does patient have a Pacemaker or an ICD?: No Airway Exam Known Difficult Airway: No Mallampati Class: 1 Mouth Opening: Normal (> 3cm) Thyromental Distance: Less than 3 cm Neck Range of Motion: Full ROM Neck Circumference: Thick Teeth Condition: Removable Dentures/Plates Upper ASA Classification ASA Score: ASA 3 Emergency Case?: No NPO Status NPO Status: NPO Clears >2 hours, Solids >8 hours Anesthesia Plan Resuscitation Status: Full Code Anesthesia Technique: MAC Anesthesia Airway Planned: Natural Airway Monitors Used: Standard Monitors Preoperative Comments:: JESICA does not wear CPAP
[2022-07-05 12:17] VITALS: BMI 34.7
[2022-07-05] MEDS: Tetracaine 0.5% 4 ML BTL OD (12:35)
[2022-07-05] MEDS: Lidocaine 2% Jelly 6 ML SYR (12:36)
[2022-07-05] MEDS: Povidone-Iodine Ophth 30 ML BTL (12:37)
[2022-07-05] MEDS: Duovisc Viscoelastic System EACH 1 EACH (12:42)
[2022-07-05] MEDS: Balanced Salt Soln.-PLUS 500 ML BAG (12:42)
[2022-07-05] MEDS: Lidocaine 1% Pres-Free 5 ML VIAL (12:43)
[2022-07-05 13:05] VITALS: BP 123/76; PULSE 59; RESP 16; TEMP 36.4; O2SAT 95
--- NOTE | 2022-07-05 13:06 | W.ANESPOSTOP ---
Postoperative Evaluation Date, Time and Location Date Performed: 07/05/22 Time Performed: 13:06 Patient Location: Day Surgery Unit Vital Signs Most Recent Imported Vital Signs: Most Recent Vital Signs Temp Pulse Resp BP Pulse Ox 36.4 C L 77 18 122/84 93 07/05/22 10:50 07/05/22 10:50 07/05/22 10:50 07/05/22 11:45 07/05/22 10:50 Most Recent Manually Entered Vital Signs: Adult Blood Pressure: 123/76 Heart Rate: 55 Respirations: 16 Oxygen Saturation (%): 94 Temperature (C): 36.4 C Pain Score (0-10 Scale): 0 Pain Score Most Recent Pain Score: Most Recent Pain Score Pain Level 0 07/05/22 10:50 Assessment Mental Status: Awake (Alert & Oriented to Patient Baseline) Airway and Respiratory Function: Patent airway with normal (patient baseline) respiratory exam Cardiovascular Function: Hemodynamically Stable Hydration Status: Adequately Hydrated Nausea & Vomiting: No Nausea or Vomiting Pain: Pt. Denies Any Pain Peripheral Nerve Block: Patient did not receive a nerve block
--- NOTE | 2022-07-05 13:07 | W.PM.DSUDISC ---
Date of service: 07/05/22 Time of Service: 13:07 Discharge Plan Disposition Patient Disposition: Home Discharge Details Attending Provider: Lester Menjivar Primary Care Provider: Esther Verma Home Meds and New Rx's Prescriptions: No Action Novolin R Flexpen 100 unit/mL (3 mL) insulin pen 24 unit subcut DAILY metoprolol succinate 25 mg tablet extended release 24 hr 50 mg PO DAILY Rx Instructions: takes with 100 mg for total 150 mg daily aspirin [Adult Aspirin Regimen] 81 mg tablet,delayed release (DR/EC) 81 mg PO DAILY Qty: 90 0RF metoprolol succinate 100 mg tablet extended release 24 hr 100 mg PO DAILY Qty: 90 6RF furosemide [Lasix] 40 mg tablet 60 mg PO DAILY metoprolol tartrate 25 mg tablet 25 mg PO DAILY PRN Rx Instructions: hr>110 diltiazem HCl 120 mg capsule,extended release 24 hr 120 mg PO DAILY Qty: 90 3RF Victoza 3-Abdulaziz 0.6 mg/0.1 mL (18 mg/3 mL) pen injector 0.6 mg subcut HS Eliquis 5 MG tablet 5 mg PO BID Qty: 60 montelukast 10 mg tablet 10 mg PO HS betamethasone valerate 0.1 % ointment 1 applic topical DAILY PRN nitroglycerin 0.4 MG tablet, sublingual 0.4 mg Sublingual PER PROTOCOL Rx Instructions: needs script renewed cholecalciferol (vitamin D3) 1,000 UNITS tablet 1,000 units PO DAILY calcium carbonate 430 mg calcium (1,000 mg) Tablet,Chewable 1,000 mg PO DAILY lisinopril 10 mg tablet 10 mg PO DAILY Spiriva Respimat 1.25 mcg/actuation mist 2 spray INHALATION DAILY Discharge Instructions Stand Alone Forms: Post-op Topical Cataract, Lia Nickey (DSU) Discharge Orders Discharge Orders: Discharge Order (Routine); Ordered 07/05/22 Ordered By: Lester Menjivar DS: Diagnosis Discharge Diagnosis (1) Posterior subcapsular age-related cataract, right eye: Status: Resolved (2) Nuclear sclerotic cataract of right eye: Status: Resolved
[2022-07-05 13:08] VITALS: BP 123/76; PULSE 55; RESP 16; TEMPC 36.4; O2SAT 94
--- NOTE | 2022-07-05 13:08 | W.PM.OP ---
Date of service: 07/05/22 Time of Service: 13:08 Operative Note Operative Note DATE OF PROCEDURE: 07/05/22 PRE-OP DIAGNOSIS: Nuclear/posterior subcapsular cataract, right eye POST-OP DIAGNOSIS: same PROCEDURE: Cataract extraction using phacoemulsification with intraocular lens implant, right eye SURGEON: Lester Menjivar ANESTHESIA TYPE: Local By Surgeon and MAC Refer to Anesthesia Record ESTIMATED BLOOD LOSS: 0 PATHOLOGY: none sent COMPLICATIONS: None Patient was transported to: same day Patient's condition: stable Implants: [employer]/DARINEL Tecnis [id number] Indications: Progressive visual loss due to cataract, right eye Procedure Description: CATARACT SURGERY OPERATIVE REPORT PREOPERATIVE DIAGNOSIS: 1. Nuclear/posterior subcapsular cataract, right eye POSTOPERATIVE DIAGNOSIS: Same OPERATION: 1. Cataract extraction using phacoemulsification with posterior chamber intraocular lens implant, right eye. IOL: IOL Filenet Architect/Model: [employer] / DARINEL Tecnis [id number] IOL Power: + 20.0 diopters IOL Serial Number: [id number] Optic Diameter: 6.0mm Haptic/Overall Diameter: 13.0mm PHACO INFO: Jake CyberSenseurion Vision System with OZil and Active Fluidics Cumulative Dispersed Energy (CDE): 10.69 seconds SURGEON: Lester Menjivar MD, ROSALBA ANESTHESIA: Monitored Anesthesia Care (MAC), with local sub-tenon's anesthetic infiltration COMPLICATIONS: None SPECIMENS: None INDICATIONS FOR PROCEDURE: The patient is a 71-year-old lady with history of diminished visual acuity in both eyes secondary to the development of bilateral nuclear/posterior subcapsular cataract. She has already undergone cataract surgery in the left eye and is doing postoperatively. She now presents for cataract surgery in the right eye. PROCEDURE: The correct surgical eye was identified and marked as the right eye and the pupil was dilated in the preoperative area using mydriatics and cycloplegics. The dilated pupil size was 6.5 mm. Oral sedation was administered in the form of one half of an Imprimis MKO Melt (midazolam 3mg/ketamine 25mg/ondansetron 2mg). The patient was brought to the operating room where cardiopulmonary monitoring was instituted and surgical time-out was performed, confirming the correct operative eye and IOL power. Topical anesthesia was administered and ophthalmic povidone-iodine 5% was instilled into the conjunctival fornices. Lidocaine gel was applied to the cornea and the kaylah-ocular area was prepped with Betadine 10% solution and draped in the usual sterile fashion for intraocular surgery, including an aperture drape. A Tegaderm transparent film dressing was cut in half and used to cover the lashes and lid margins. Care was taken to sequester the lashes and lid margins under the Tegaderm dressing. A lid speculum was placed between the lids of the operative eye and the Jake LuxOR Revalia operating microscope was maneuvered into position. Carol scissors were then used to make a conjunctival buttonhole approximately 6mm posterior to the limbus in the inferonasal quadrant. Blunt dissection was carried out to expose bare sclera, and a blunt-tipped sub-tenon?s anesthesia cannula was introduced and passed posteriorly along the globe where non-preserved plain lidocaine was injected into posterior sub-Tenon?s space. A sideport knife was used to make a paracentesis port inferotemporally. Intraocular phenylephrine/lidocaine was injected into the anterior chamber. The anterior chamber was filled with viscoelastic. A keratome knife was used to construct a 2-plane near-clear corneal tunnel extending 2.0mm into clear cornea superiortemporally. A flap was raised on the anterior capsule and capsulorhexis forceps were used to complete a continuous curvilinear capsulorhexis of 5.0 mm. Balanced salt solution was then used to perform cortical cleaving hydrodissection and nuclear hydrodelineation until the lens could be freely rotated within the capsular bag. The lens nucleus was then disassembled and removed within the capsular bag and iris plane using phacoemulsification. Residual cortical material was removed using the I/A handpiece. The posterior capsule was carefully polished to remove as much residual lens epithelial cells as safely possible. The capsular bag was then inflated and the anterior chamber deepened with viscoelastic. The lens implant described above was inserted into the capsular bag using the DARINEL [place] Injector. A Kuglen hook was used to dial the IOL into position. Residual viscoelastic was then removed first from posterior to the IOL, then from the anterior chamber using the I/A handpiece. The lens implant was noted to center nicely within the capsular bag. The incisions were stromally hydrated, and the anterior chamber was reformed using BSS. Then 0.5cc of moxifloxacin 1.0mg/ml were injected into the capsular bag and anterior chamber. The incisions were checked with a Weck spear and found to be secure. Several drops of ophthalmic povidone-iodine 5% were then applied to the eye followed by two drops of Imprimis combination prednisolone/moxifloxacin/nepafenac solution. The drapes were removed and a clear plastic protective eye shield was placed over the eye. The patient was then returned to [facility] in stable condition.
[2022-07-05 13:32] VITALS: BP 127/107; PULSE 55; RESP 16; TEMP 36; O2SAT 92
== END 2022-07-05 13:39 | disposition home or self-care (01) ==
LOC: SUR 10:17
PROVIDERS: PCP Nurse Practitioner Family; Visit Provider Ophthalmology
PROC: (CPT 66984; principal; 2022-07-05 13:30)
DX: H25.041 Posterior subcapsular polar age-related cataract, right eye (principal); I48.91 Unspecified atrial fibrillation; E11.9 Type 2 diabetes mellitus without complications; Z79.4 Long term (current) use of insulin
CPT/HCPCS: 66984; V2632

== ENCOUNTER 2022-08-17 01:15 | Outpatient (CLI) | payer MEDICARE, SELFPAY ==
--- NOTE | 2022-08-17 07:00 | DI.US_ITS ---
APPROVED REPORT EXAM: Comprehensive 2D, Doppler, and color-flow Echocardiogram Patient Location: Out-Patient [facility] Adjuster: Jalyn Steven RDCS (AE) Indications: LV function, Atrial fibrillation, CAD Other Information Study Quality: Fair. Technically limited study due to body habitus. Conclusion Moderate concentric left ventricular hypertrophy. Estimated ejection fraction is 50 to 55%. No segm ental wall motion abnormalities are identified Normal right ventricular size and systolic function Left atrium is mildly dilated. Right atrial size is normal Aortic valve is sclerotic without stenosis or regurgitation Normal mitral valve with trace regurgitation Normal tricuspid valve with mild regurgitation. Estimated right ventricular systolic pressure is 20 mmHg Mildly dilated ascending aorta Patient was in atrial fibrillation throughout the study with heart rates ranging from 1 10-1 20 Wall motion Left Ventricle The left ventricle is normal size. The left ventricular systolic function is normal. The left ventric ular ejection fraction is within the normal range. Moderate concentric left ventricular hypertrophy. There are no segmental wall motion abnormalities There is no ventricular septal defect visualized. LV EF is 50-55%. Right Ventricle The right ventricle is normal size. The right ventricular systolic function is normal. The RVSP is 20 .3 mmHg. Atria Left atrium is mildly dilated. The right atrium size is normal. The interatrial septum is intact with no evidence for an atrial septal defect. Aortic Valve The Aortic valve is sclerotic. There is no aortic valvular stenosis. No aortic regurgitation is prese nt. Mitral Valve The mitral valve is normal in structure. No evidence of mitral valve stenosis. Trace mitral regurgita tion. Tricuspid Valve The tricuspid valve is normal in structure. There is no tricuspid valve stenosis. Mild tricuspid regu rgitation. Pulmonic Valve The pulmonary valve is normal in structure. There is no pulmonic valvular stenosis. Trace pulmonic re gurgitation. Great Vessels The aortic root is normal in size. The ascending aorta is mildly dilated. Aortic arch is not well vis ualized. IVC is normal in size and collapses >50% with inspiration. Pericardium There is no pericardial effusion. 2D Dimensions IVSD d PLAX 1.35 cm F: 0.6-1.0 LV Vol A2C d MOD 69.9 mL LVPW d PLAX 1.34 cm F: 0.6 - 1.0 LV Vol A4C d MOD 66.0 mL LVID d PLAX 4.09 cm F: 3.8 - 5.2 LA vol/ BSA A2C s A-L 22.3 mL/m2 LVDs 3.40 cm F: 2.2 - 3.5 LA vol/ BSA A4C s A-L 26.5 mL/m2 Ao Root d 2.81 cm F: 2.7 - 3.3 LA Vol/ BSA Biplane s A-L 24.7 mL/m2 RA Area A4C 14.10 cm2 LA Area A4C s MOD 18.65 cm2 RA Vol/ BSA A4C s A-L 19.7 mL/m2 LA Area A2C s MOD 16.82 cm2 Ao Asc Diam d 3.50 cm F: 2.3 - 3.1 LV EF A4C MOD 40.7 % LV EF Teichholz 34.6 % LV EF A2C MOD 38.1 % LVEF (Rios's) 39.71 % F: 54 - 74 LV EF Biplane MOD 39.7 % LV Volume 52.59 mL F: 46 - 106 SV 27.32 mL LV Volume Index 27.82 mL/m2 F: 29 - 61 SV Index 14.44 mL/m2 LV Vol Biplane MOD 68.8 mL FS 16.25 % M-Mode TAPSE 1.07 cm (M/F) >1.7 LV Diastology MV E Vmax 0.99 (0.4-1.3 m/s) Aortic Valve LVOT Area 3.33 cm2 AoV Area Vmax 2.86 cm2 LVOT Vmax 0.89 m/s AoV Area/ BSA (Vmax) 1.51 cm2/m2 LVOT Mean Crow. 0.56 m/s EDUARDA Mean Crow. 2.40 cm2 LVOT Peak Grad 3.2 mmHg EDUARDA Mean Crow. Index 1.27 cm2/m2 LVOT Mean Grad 1.5 mmHg LVOT VTI 0.147 m LVOT Diam s 2.05 cm AoV Vmax 1.03 m/s Velocity Ratio 0.86 AoV Mean Crow. 0.77 m/s AoV Peak Grad 4.3 mmHg LVOT SV 48.94 mL AoV Mean Grad 2.6 mmHg AoV VTI 0.163 m AoV Area VTI 3.01 cm2 AoV Area/ BSA (VTI) 1.59 cm/m2 Mitral Valve MV DT 167 (160-240 msec) MV PHT 48 msec MV Area PHT 4.54 cm2 MV VTI 0.186 m MV Area VTI 2.64 (4.0-6.0 cm2) Pulmonary Valve PV Vmax 0.77 (0.5-1.5 m/s) RVOT Peak Gr. 3.02 mmHg PV Peak Grad 2.4 mmHg RVOT Mean Gr. 1.80 mmHg PV Mean Grad 1.6 mmHg RVOT VTI 0.126 m PV VTI 0.125 m RVOT Vmax 0.87 m/s Tricuspid Valve TR Peak Grad 17.3 mmHg TR Vmax 2.08 m/s RA Pressure 3.00 mmHg RVSP (TR) 20.3 mmHg
== END 2022-08-17 01:35 ==
LOC: DI 01:15
PROVIDERS: PCP Nurse Practitioner Family; Visit Provider Internal Medicine Cardiovascular Disease
DX: I48.91 Unspecified atrial fibrillation (principal)
CPT/HCPCS: 93306

== ENCOUNTER → 2022-08-19 11:09 | Outpatient (BNVA) | payer MEDICARE, SELFPAY | PROVIDERS: PCP Nurse Practitioner Family; Referring Provider Nurse Practitioner Family; Visit Provider Internal Medicine Cardiovascular Disease | DX: I48.21 Permanent atrial fibrillation (principal); I25.10 Atherosclerotic heart disease of native coronary artery without angina pectoris; I10 Essential (primary) hypertension; R91.1 Solitary pulmonary nodule | CPT/HCPCS: 99214 ==

== ENCOUNTER 2022-12-07 19:39 | Outpatient (REF) | payer MEDICARE, SELFPAY ==
[2022-12-07 16:50] LABS: HGB 17.7 g/dL (11.2-15.7); MCH 31.1 pg (27.0-33.0); MCV 91 fL (80-95); MPV 12.2 fL (8.0-11.0); Platelet Count 181 10^3/uL (130-400); RDW-SD 42.6 fL; WBC 8.73 10^3/uL (4.4-10.8)
[2022-12-07 16:52] LABS: ALT 23 U/L (14-59); AST 21 U/L (15-37); Albumin 3.5 g/dL (3.4-5.0); Alkaline Phosphatase 105 U/L (46-116); Anion Gap 10.6 mmol/L (3-11); BUN 25 mg/dL (7-18); Bilirubin, Total 1.4 mg/dL (0.2-1.0); CO2 29.4 mmol/L (21.0-32.0); CREATININE 1.5 mg/dL (0.55-1.02); Calcium 9.2 mg/dL (8.5-10.1); Calculated LDL 173 mg/dL (<100); Chloride 100 mmol/L (98-107); Cholesterol 274 mg/dL (<200); Glucose 299 mg/dL (74-106); HDL Cholesterol 41 mg/dL (40-60); Potassium 3.7 mmol/L (3.5-5.1); Sodium 140 mmol/L (136-145); Total Protein 7.4 g/dL (6.4-8.2); Triglyceride 300 mg/dL (<150)
[2022-12-07 17:01] LABS: Hemoglobin A1C 7.4 % (<5.7)
[2022-12-09 09:51] LABS: HBs Antibody, Qual Negative (See Note); HBs Antibody, Quant <3.1 mIU/mL (See Note); Hepatitis B Core Antibody Negative (Negative); Hepatitis B surface Ag Negative (Negative); Hepatitis C Ab w Rflx HCV PCR Negative (Negative)
== END 2022-12-07 19:40 | disposition home or self-care (01) ==
LOC: NCHCN 19:39
PROVIDERS: PCP Nurse Practitioner Family; Visit Provider Nurse Practitioner Family
DX: I10 Essential (primary) hypertension (principal); E11.9 Type 2 diabetes mellitus without complications; Z87.19 Personal history of other diseases of the digestive system; E78.5 Hyperlipidemia, unspecified; E04.1 Nontoxic single thyroid nodule
CPT/HCPCS: 80053; 80061; 85027; 86704; 86706; 86803; 87340; 83036

== ENCOUNTER → 2022-12-16 10:55 | Outpatient (BNVA) | payer MEDICARE, SELFPAY | PROVIDERS: PCP Nurse Practitioner Family; Referring Provider Nurse Practitioner Family; Visit Provider Internal Medicine Cardiovascular Disease | DX: Z79.01 Long term (current) use of anticoagulants (principal); R91.1 Solitary pulmonary nodule; I25.10 Atherosclerotic heart disease of native coronary artery without angina pectoris; I10 Essential (primary) hypertension; I48.91 Unspecified atrial fibrillation | CPT/HCPCS: 99214 ==

== ENCOUNTER 2023-01-17 01:05 | Outpatient (CLI) | payer MEDICARE, SELFPAY ==
--- NOTE | 2023-01-17 07:40 | DI.US_ITS ---
Exam(s) US THYROID EXAM: US THYROID CLINICAL HISTORY: THYROID NODULE, E04.1. TECHNIQUE: Ultrasound thyroid performed using standard protocol. COMPARISON: No exams were available for comparison FINDINGS: ISTHMUS: 3 mm RIGHT LOBE: Size: 4.1 x 1.7 x 2.1 cm Echogenicity: Normal. Vascularity: Normal. Nodules:#1. 1.2 x 0.7 x 1.3 centimeter solid hypoechoic lesion with smooth margins, no echogenic foc i, TR 4, follow up recommended. Two small spongiform nodules are seen near the upper pole. LEFT LOBE: Size: 4.1 x 1.5 x 1.6 cm Echogenicity: Normal. Vascularity: Normal. Nodules: #3. 1.3 x 1.4 x 1.1 centimeter nodule at the inferior pole the left lobe is difficult to ch aracterize due to inferior location. It shows peripheral calcification which shadows and obscures ev aluation of the nodule composition. It is taller than wide. TR 5, FNA recommended. A small cyst is noted at the upper pole. OTHER FINDINGS: None. IMPRESSION: Nodule at the lower pole of the left lobe of the thyroid without suspicious appearance, TR 5. FNA re commended. TR 4 nodule right lobe, follow-up recommended. DATA REPOSITORY:
== END 2023-01-17 01:25 ==
LOC: DI 01:05
PROVIDERS: PCP Nurse Practitioner Family; Visit Provider Nurse Practitioner Family
DX: E04.1 Nontoxic single thyroid nodule (principal)
CPT/HCPCS: 76536

== ENCOUNTER 2023-06-19 05:46 | Inpatient (IN) | payer MEDICARE, SELFPAY ==
[2023-06-19] VITALS (78 sets, daily range): BP systolic 103–156; BP diastolic 50–128; PULSE 54–172; RESP 12–32; TEMP 36.3–36.9; O2SAT 90–97
--- NOTE | 2023-06-19 | DI.RAD_ITS ---
Exam(s) XR PORTABLE CHEST AP EXAM: XR PORTABLE CHEST AP CLINICAL HISTORY: ?PNA/CHF: artifact on the original CXR. TECHNIQUE: 2D digital imaging was performed. COMPARISON: CR,XR XR PORTABLE CHEST AP from 06/19/2023 FINDINGS: Single AP portable view. Compared to earlier same date. Sternotomy wires again noted. Heart size upper normal. Mediastinum not widened. Lungs are clear. No infiltrates nor obvious pleural effusions. No evidence of pulmonary edema. No pneumothorax. No fractures. IMPRESSION: No acute pulmonary findings on this single AP portable view of the chest. DATA REPOSITORY: RADIATION DOSE DELIVERED:
--- NOTE | 2023-06-19 05:45 | RT.EKG_ITS ---
APPROVED REPORT Exam: Resting ECG Reason for Exam: chest pain Patient Location: E HR:155 bpm ECG Measurements Heart Rate 155 AXIS MI 94 P 171 QRSd 82 QRS 77 QT 302 T [id number] QTc 485 Conclusion Atrial fibrillation with rapid ventricular response. Scoping ST depression in multiple leads like re felcts a rate related repolarization abnomormality
[2023-06-19] MEDS: dilTIAZem 25 MG/5 ML VIAL 20 MG IVP (06:00)
--- NOTE | 2023-06-19 06:00 | DI.RAD_ITS ---
Exam(s) XR PORTABLE CHEST AP EXAM: XR PORTABLE CHEST AP CLINICAL HISTORY: shortness of breath, atrial fibrillation. TECHNIQUE: 2D digital imaging was performed. COMPARISON: CR XR CHEST 1V IN DI DEPT from 05/13/2022 FINDINGS: Single AP portable view. Sternotomy wires again noted. There is presently left-sided chest pad obscuring part of the left grant g. Mild cardiomegaly. Mediastinum not widened. Right lung is clear. Visualized left lung is clear. No pulmonary edema. No fractures evident. IMPRESSION: No acute pulmonary findings on this single AP portable view of the chest. Sternotomy wires. Mild cardiomegaly. DATA REPOSITORY: RADIATION DOSE DELIVERED:
[2023-06-19] MEDS: Aspirin 81 MG CHEW 324 MG CH (06:17)
[2023-06-19 06:18] LABS: Abs Immature Grans 0.03 10^3/uL (0.0-0.06); Absolute Eosinophil Count 0.16 10^3/uL (0.0-0.7); Absolute Monocyte Count 1.17 10^3/uL (0.1-0.8); Basophils % 0.5; Eosinophils % 1.5; HCT 52.1 % (36.0-46.0); HGB 17.6 g/dL (11.2-15.7); Immature Grans % 0.3; MCH 30.8 pg (27.0-33.0); MCHC 33.8 % (32.0-36.0); MCV 91 fL (80-95); MPV 11.1 fL (8.0-11.0); Monocytes % 10.7; Platelet Count 291 10^3/uL (130-400); RBC 5.71 10^6/uL (3.93-5.22); RDW 13.7 % (11.7-14.6); RDW-SD 45.6 fL; WBC 10.91 10^3/uL (4.4-10.8)
[2023-06-19 06:19] LABS: Absolute Basophil Count 0.05 10^3/uL (0.0-0.2); Absolute Lymphocyte Count 1.85 10^3/uL (1.2-3.4); Absolute Neutrophil Count 7.64 10^3/uL (1.2-6.7)
[2023-06-19] MEDS: Normal Saline 100 ML 10 ML (06:26)
--- NOTE | 2023-06-19 06:42 | ED.GENADUL_ITS ---
Discharge Plan Discharge Details Chief Complaint: Chest Pain Primary Care Provider: Esther Verma ED Provider: Javan Whitfield Home Meds and New Rx's Prescriptions: No Action Novolin R FlexPen 100 unit/mL (3 mL) insulin pen 24 unit subcut DAILY metoprolol succinate 25 mg tablet extended release 24 hr 50 mg PO DAILY Rx Instructions: takes with 100 mg for total 150 mg daily fluorouracil [Efudex] 5 % cream 1 applic topical BID 21 Days Qty: 40 0RF aspirin [Adult Aspirin Regimen] 81 mg tablet,delayed release (DR/EC) 81 mg PO DAILY Qty: 90 0RF metoprolol succinate 100 mg tablet extended release 24 hr 100 mg PO DAILY Qty: 90 6RF furosemide [Lasix] 40 mg tablet 60 mg PO DAILY diltiazem HCl 120 mg capsule,extended release 24 hr 120 mg PO DAILY Qty: 90 3RF Victoza 3-Abdulaziz 0.6 mg/0.1 mL (18 mg/3 mL) pen injector 0.6 mg subcut HS Eliquis 5 MG tablet 5 mg PO BID Qty: 60 montelukast 10 mg tablet 10 mg PO HS betamethasone valerate 0.1 % ointment 1 applic topical DAILY PRN nitroglycerin 0.4 MG tablet, sublingual 0.4 mg Sublingual PER PROTOCOL Rx Instructions: needs script renewed cholecalciferol (vitamin D3) 1,000 UNITS tablet 1,000 units PO DAILY calcium carbonate 430 mg calcium (1,000 mg) Tablet,Chewable 1,000 mg PO DAILY lisinopril 10 mg tablet 10 mg PO DAILY Spiriva Respimat 1.25 mcg/actuation mist 2 spray INHALATION DAILY Medical Decision Making The patient was seen and examined. She was initially in distress on arrival to the emergency room but her right shoulder plain improved with her rate was controlled from the 170s down to closer to 100 bpm. The patient received 20 mg of diltiazem as a bolus and is on a 10 mg/h drip which has controlled her close 200. The patient did have a flurry of either atrial fibrillation or aberrant conduction through an alternative pathway and at least one attempt to convert into sinus. However, the patient popped back into the atrial fibrillation. Her oxygen saturation has been in the mid 90s at rest the entire time she has been here. Lungs do not sound particularly like congestive heart failure, although there was some increased cephalization and density to her interstitial tissue on her chest x-ray. The patient will require hospitalization for rate control and serial myocardial enzymes to exclude myocardial ischemia as an etiology for her rapid atrial fibrillation. Disposition will depend on discovery of pathology, bed availability if an ICU is required for the cardizem drip, and improvement with symptoms here in the emergency room. HPI General Date/Time Provider Initiated Documentation: 06/19/23 06:07 . HPI Narrative: The patient is a 72-year-old female, with a past medical history significant for atrial fibrillation and congestive heart failure, status postmyocardial infarction, who presents to the emergency department this evening complaining of right shoulder pain which began at around 7:30 PM yesterday evening. The patient was concerned because in the past she had had similar symptoms to her prior heart attack. On arrival to the emergency room, the patient has a heart rate in the 160s in rapid atrial fibrillation. She tells me that she is in chronic A-fib but after a discussion it is not entirely clear if this is the case or if she has paroxysmal atrial fibrillation. She is currently taking apixaban for anticoagulation. She tells me that she is chronically short of breath. When asked if she has more short of breath than usual she tells me she does not. Related Data Home Medications Medication Instructions Recorded Confirmed nitroglycerin 0.4 mg sublingual 0.4 mg sublingual PER PROTOCOL 11/29/12 06/03/23 tablet cholecalciferol (vitamin D3) 25 1,000 units PO DAILY 09/26/13 06/03/23 mcg (1,000 unit) tablet apixaban 5 mg tablet (Eliquis) 5 mg PO BID #60 tab-caps 10/21/16 06/03/23 calcium carbonate 430 mg calcium 1,000 mg PO DAILY 12/21/18 06/03/23 (1,000 mg) chewable tablet aspirin 81 mg tablet,delayed 81 mg PO DAILY #90 tabs 08/06/19 06/03/23 release (Adult Aspirin Regimen) metoprolol succinate 100 mg 100 mg PO DAILY #90 tabs 09/11/19 06/03/23 tablet,extended release 24 hr montelukast 10 mg tablet 10 mg PO HS 05/19/20 06/03/23 insulin regular human 100 unit/mL 24 unit subcut DAILY 11/19/21 06/03/23 (3 mL) subcutaneous pen (Novolin R FlexPen) betamethasone valerate 0.1 % 1 applic topical DAILY PRN 03/03/22 06/03/23 topical ointment liraglutide 0.6 mg/0.1 mL (18 mg/3 0.6 mg subcut HS 03/03/22 06/03/23 mL) subcutaneous pen injector (Victoza 3-Abdulaziz) diltiazem HCl 120 mg capsule,24 120 mg PO DAILY #90 caps 05/20/22 06/03/23 hr,extended release furosemide 40 mg tablet (Lasix) 60 mg PO DAILY 05/20/22 06/03/23 lisinopril 10 mg tablet 10 mg PO DAILY 05/20/22 06/03/23 metoprolol succinate 25 mg 50 mg PO DAILY 05/20/22 06/03/23 tablet,extended release 24 hr tiotropium bromide 1.25 2 spray inhalation DAILY 06/25/22 06/03/23 mcg/actuation mist for inhalation (Spiriva Respimat) fluorouracil 5 % topical cream 1 applic topical BID 3 weeks #40 06/03/23 (Efudex) grams Previous Rx's Medication Instructions Recorded aspirin 81 mg tablet,delayed 81 mg PO DAILY #90 tabs 08/06/19 release (Adult Aspirin Regimen) metoprolol succinate 100 mg 100 mg PO DAILY #90 tabs 09/11/19 tablet,extended release 24 hr diltiazem HCl 120 mg capsule,24 120 mg PO DAILY #90 caps 05/20/22 hr,extended release fluorouracil 5 % topical cream 1 applic topical BID 3 weeks #40 06/03/23 (Efudex) grams Allergies Allergy/AdvReac Type Severity Reaction Status Date / Time clopidogrel [From Plavix] Allergy Unknown Verified 12/16/22 09:05 iohexol [From Omnipaque 140] Allergy Skin Rash Verified 12/16/22 09:05 pseudoephedrine Allergy Verified 12/16/22 09:05 [From Sudafed] Sulfa (Sulfonamide Allergy Verified 12/16/22 09:05 Antibiotics) erythromycin base AdvReac GI Verified 12/16/22 09:05 [Erythromycin Base] metal Allergy Intermediate Skin Rash Uncoded 12/16/22 09:05 General Stated Complaint: Chest Pain JOSE DE JESUS: 2 PFSH All Active Problems (Updated 04/08/23 @ 10:11 by Nelli Lopes) COPD (chronic obstructive pulmonary disease) (Chronic) Atrial fibrillation (Chronic 04/29/14) Hypertension (Chronic) CAD (coronary artery disease) (Chronic) a. drug eluting stents Obesity (Chronic) BMI 33.0-33.9,adult (Chronic) Osteoarthritis (Chronic) H/O carpal tunnel syndrome (Chronic) Chronic low back pain (Chronic) H/O hypercalcemia (Chronic) H/O hyperparathyroidism (Chronic) a. Surgery to remove adenomas Osteopenia (Chronic) Psoriasis (Chronic) Elevated hematocrit (Chronic) Elevated hemoglobin (Chronic) Impaired fasting glucose (Chronic) Metabolic syndrome (Chronic) a. triglycerides greater than 300 and HDL less than 30 Hypertensive CKD (chronic kidney disease) (Chronic) A. probably stage 1 or 2 B. baseline creatinine 1.1 to 1.2 Sepsis (Acute) Prediabetes (Acute) Erythrocytosis (Chronic) Abnormal LFTs (Acute) Hypomagnesemia (Acute) Acute CHF (Acute) Discharge planning issues (Acute) DVT prophylaxis (Acute) Moderate pulmonary arterial systolic hypertension (Chronic) Acute renal insufficiency (Acute) Post-menopausal bleeding (Acute) Chronic atrial fibrillation with rapid ventricular response (Acute) Pneumonia (Acute) Acute kidney injury superimposed on chronic kidney disease (Acute) Peripheral neuropathy (Acute) Lung nodule (Acute) CHF (congestive heart failure) (Chronic) Exertional shortness of breath (Acute) Diabetes mellitus (Chronic) Fatigue (Acute) Increased sputum production (Acute) Snoring (Acute) Seasonal allergies (Acute) Hyperlipidemia (Acute) Skin lesion (Acute) Emphysema lung (Acute) Thyroid nodule (Acute) Medical History (Updated 04/08/23 @ 10:11 by Nelli Lopes) Degenerative joint disease of right hip Cataracts, bilateral Trigger finger, right index finger Rosacea Leg pain, right Loss of balance Hyperparathyroidism Polycythemia vera CKD (chronic kidney disease) Pulmonary hypertension Muscle spasm Rhinitis PONV (postoperative nausea and vomiting) Acute bronchitis Surgical History H/O benign neoplasm resected Hx of cardiac cath 2 stents H/O parathyroidectomy s/p 2 stents Family History Other Heart disease Social History Smoking/Tobacco Use Status: Former Tobacco Use Quit Date: 07/18/06 Tobacco: How many years used: 30 Smoking risk assessment performed?: Yes Alcohol Intake: never Drug use: Never Substance use type: does not use What type of physical activity do you participate in: none Do you feel safe at home: Yes Additional Social history: lives alone. Exam Resp Effort & Inspection: normal respiratory effort Auscultation: clear to auscultation bilaterally Cardio Rate: regular rate Rhythm: regular rhythm Neuro Cranial Nerves: CN's II-XI intact bilaterally Speech: speech normal Motor: muscle tone normal throughout and strength 5/5 throughout Sensory Exam: no sensory deficits noted Course Vital Signs Vital signs: Vital Signs Pulse 168 H 06/19/23 05:51 Respiratory Rate 15 06/19/23 05:51 Blood Pressure 156/125 H 06/19/23 05:51 Pulse Oximetry 95 06/19/23 05:51 Pulse 83 06/19/23 06:24 Pulse 108 H 06/19/23 06:30 Respiratory Rate 15 06/19/23 06:30 Respiratory Effort Normal, Short of Breath 06/19/23 05:59 Respiratory Depth Normal 06/19/23 05:59 Respiratory Pattern Normal 06/19/23 05:59 Blood Pressure 136/76 06/19/23 06:24 Blood Pressure Mean 97 06/19/23 06:24 Blood Pressure Position Supine 06/19/23 05:51 Pulse Oximetry 92 06/19/23 06:30 Oxygen Delivery Method Room Air 06/19/23 05:51 Oxygen Flow Rate 0 06/19/23 05:51 Pain Level 8 06/19/23 05:51 Lab/Test Results Lab/Test Results: Laboratory Tests Range/Units 06/19/23 05:55 WBC (4.4-10.8) 10^3/uL 10.91 H RBC (3.93-5.22) 10^6/uL 5.71 H Hgb (11.2-15.7) g/dL 17.6 H Hct (36.0-46.0) % 52.1 H MCV (80-95) fL 91 MCH (27.0-33.0) pg 30.8 MCHC (32.0-36.0) % 33.8 RDW (11.7-14.6) % 13.7 Plt Count (130-400) 10^3/uL 291 MPV (8.0-11.0) fL 11.1 H Immature Gran % 0.3 Neutrophils % 70.0 Lymphocytes % 17.0 Monocytes % 10.7 Eosinophils % 1.5 Basophils % 0.5 Nucleated RBC % (0.0-0.3) % 0.0 Absolute Neutrophils (1.2-6.7) 10^3/uL 7.64 H Absolute Lymphocytes (1.2-3.4) 10^3/uL 1.85 Absolute Monocytes (0.1-0.8) 10^3/uL 1.17 H Absolute Eosinophils (0.0-0.7) 10^3/uL 0.16 Absolute Basophils (0.0-0.2) 10^3/uL 0.05
[2023-06-19 06:48] LABS: ALT 30 U/L (14-59); AST 28 U/L (15-37); Albumin 3.3 g/dL (3.4-5.0); Alkaline Phosphatase 116 U/L (46-116); Anion Gap 7.8 mmol/L (3-11); BUN 22 mg/dL (7-18); CO2 31.2 mmol/L (21.0-32.0); CREATININE 1.3 mg/dL (0.55-1.02); Calcium 9.7 mg/dL (8.5-10.1); Chloride 101 mmol/L (98-107); Estimated GFR 43.69 (mL/min/1.73m2); Glucose 171 mg/dL (74-106); Magnesium 2.1 mg/dL (1.8-2.4); NT-proBNP 1489 pg/mL (<300); Potassium 3.5 mmol/L (3.5-5.1); Sodium 140 mmol/L (136-145); Total Protein 8.1 g/dL (6.4-8.2); Troponin I < 50 ng/L (<or=60)
--- NOTE | 2023-06-19 07:34 | DI.VRAD_ITS ---
PROCEDURE INFORMATION: Exam: XR Chest Exam date and time: 06/19/2023 6:32 AM Age: 72 years old Clinical indication: Shortness of breath and other: Shortness of breath, atrial fibrillation TECHNIQUE: Imaging protocol: Radiologic exam of the chest. Views: 1 view. COMPARISON: CT CHEST WO 05/13/2022 5:49 PM FINDINGS: Lungs: No acute abnormality detected within the right lung. Majority of left lung is partially obscured by extraneous artifact. No dense consolidation suspected in the left lung. Mass present in the posterior right lung. Pleural spaces: No significant pleural fluid. No pneumothorax detected. Heart/Mediastinum: Heart size appears stable compared to CT butadiene converter operator image from 05/13/2022. No significant pulmonary vascular congestion. apex on 05/13/2022 is not readily apparent on this portable radiograph. 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 IMPRESSION: No definite acute cardiopulmonary abnormality on portable chest radiograph. Significant portions of the left lung are partially obscured by extraneous artifact. Dictated and Authenticated by: Jose Moscoso MD. Ordering:YADY Edouard MD
--- NOTE | 2023-06-19 07:46 | W.EDPROG ---
Date of service: 06/19/23 Time of Service: 07:45 Medical Decision Making This patient was signed out to me. Please see previous notes for H&P and initial eval. In brief, 72yo F with hx of afib presenting in afib with RVR, rate 160's-170's. Received 20mg diltiazem followed by dilt gtt at 10, rate currently in 80's. Initially troponin negative. Plan for admission vs transfer pending bed availability. ICU bed available at [facility]; discussed with hospitalist call or contact centre manager and accepted. Awaiting transfer to the unit. Discharge Plan Disposition Patient Disposition: Admit to [facility] Condition: Serious Discharge Details Chief Complaint: Chest Pain Clinical Impression: Atrial fibrillation, Tachycardia Primary Care Provider: Esther Verma ED Provider: Irene Marquez Home Meds and New Rx's Prescriptions: No Action Novolin R FlexPen 100 unit/mL (3 mL) insulin pen 24 unit subcut DAILY metoprolol succinate 25 mg tablet extended release 24 hr 50 mg PO DAILY Rx Instructions: takes with 100 mg for total 150 mg daily fluorouracil [Efudex] 5 % cream 1 applic topical BID 21 Days Qty: 40 0RF aspirin [Adult Aspirin Regimen] 81 mg tablet,delayed release (DR/EC) 81 mg PO DAILY Qty: 90 0RF metoprolol succinate 100 mg tablet extended release 24 hr 100 mg PO DAILY Qty: 90 6RF furosemide [Lasix] 40 mg tablet 60 mg PO DAILY diltiazem HCl 120 mg capsule,extended release 24 hr 120 mg PO DAILY Qty: 90 3RF Victoza 3-Abdulaziz 0.6 mg/0.1 mL (18 mg/3 mL) pen injector 0.6 mg subcut HS Eliquis 5 MG tablet 5 mg PO BID Qty: 60 montelukast 10 mg tablet 10 mg PO HS betamethasone valerate 0.1 % ointment 1 applic topical DAILY PRN nitroglycerin 0.4 MG tablet, sublingual 0.4 mg Sublingual PER PROTOCOL Rx Instructions: needs script renewed cholecalciferol (vitamin D3) 1,000 UNITS tablet 1,000 units PO DAILY calcium carbonate 430 mg calcium (1,000 mg) Tablet,Chewable 1,000 mg PO DAILY lisinopril 10 mg tablet 10 mg PO DAILY Spiriva Respimat 1.25 mcg/actuation mist 2 spray INHALATION DAILY
--- NOTE | 2023-06-19 08:29 | NUR.NOTE ---
Nursing Note: 0730 patient denies chest pain at that time. LS Clear. patient assisted in repositioning on stretcher.
--- NOTE | 2023-06-19 08:29 | W.PC.ACHO ---
Registration Status: REG ER Primary Language: Preferred Language: Arabic ED Information & Data Chief Complaint Chest Pain 06/19/23 06:51 Triage Note 9 of 10 aching pain in right 06/19/23 05:51 shoulder started last night while the PT was laying in bed. PT reports a history of cardiac issues including TX and 2 cardiac stents. Medical / Surgical History (Last Updated 04/08/23 @ 10:11 by Nelli Lopes) Degenerative joint disease of right hip Cataracts, bilateral Trigger finger, right index finger Rosacea Leg pain, right Loss of balance Hyperparathyroidism Polycythemia vera CKD (chronic kidney disease) Pulmonary hypertension Muscle spasm Rhinitis PONV (postoperative nausea and vomiting) Acute bronchitis (Last Reviewed 08/19/22 @ 11:39 by Shalonda Richardson MD) H/O benign neoplasm Hx of cardiac cath H/O parathyroidectomy Most Recent Vital Signs Pulse 90 06/19/23 08:01 Pulse 84 06/19/23 08:01 Respiratory Rate 19 06/19/23 08:01 Respiratory Effort Normal, Short of Breath 06/19/23 05:59 Respiratory Depth Normal 06/19/23 05:59 Respiratory Pattern Normal 06/19/23 05:59 Blood Pressure 138/85 06/19/23 08:01 Blood Pressure Mean 102 06/19/23 08:01 Blood Pressure Position Supine 06/19/23 05:51 Pulse Oximetry 94 06/19/23 08:01 Oxygen Delivery Method Room Air 06/19/23 05:51 Oxygen Flow Rate 0 06/19/23 05:51 Pain Level 8 06/19/23 05:51 Allergies clopidogrel [From Plavix] Allergy (Unknown, Verified 06/19/23 07:35) Pt denies iohexol [From Omnipaque 140] Allergy (Verified 06/19/23 07:35) Skin Rash PURPLE RASH pseudoephedrine [From Sudafed] Allergy (Verified 06/19/23 07:35) Pt. states it makes me feel weird gives me nose bleeds Sulfa (Sulfonamide Antibiotics) Allergy (Verified 06/19/23 07:35) pt. can't remember reaction erythromycin base [Erythromycin Base] Adverse Reaction (Verified 06/19/23 07:35) GI metal Allergy (Intermediate, Uncoded 06/19/23 07:35) Skin Rash IV IV Catheter Type [Left Forearm Saline Lock ] IV Catheter Type [Right Saline Lock Forearm] IV Catheter Gauge [Left 20 Forearm] IV Catheter Gauge [Right 18 Forearm] Diagnostics 06/19/23 06/19/23 Range/Units 09:07 05:55 WBC 10.91 H (4.4-10.8) 10^3/uL RBC 5.71 H (3.93-5.22) 10^6/uL Hgb 17.6 H (11.2-15.7) g/dL Hct 52.1 H (36.0-46.0) % MCV 91 (80-95) fL MCH 30.8 (27.0-33.0) pg MCHC 33.8 (32.0-36.0) % RDW 13.7 (11.7-14.6) % Plt Count 291 (130-400) 10^3/uL MPV 11.1 H (8.0-11.0) fL Immature Gran % 0.3 Neutrophils % 70.0 Lymphocytes % 17.0 Monocytes % 10.7 Eosinophils % 1.5 Basophils % 0.5 Nucleated RBC % 0.0 (0.0-0.3) % Absolute Neutrophils 7.64 H (1.2-6.7) 10^3/uL Absolute Lymphocytes 1.85 (1.2-3.4) 10^3/uL Absolute Monocytes 1.17 H (0.1-0.8) 10^3/uL Absolute Eosinophils 0.16 (0.0-0.7) 10^3/uL Absolute Basophils 0.05 (0.0-0.2) 10^3/uL Sodium 140 (136-145) mmol/L Potassium 3.5 (3.5-5.1) mmol/L Chloride 101 (98-107) mmol/L Carbon Dioxide 31.2 (21.0-32.0) mmol/L Anion Gap 7.8 (3-11) mmol/L BUN 22 H (7-18) mg/dL Creatinine 1.3 H (0.55-1.02) mg/dL Est GFR (CKD-EPI 2020) 43.69 (mL/min/1.73m2) Glucose 171 H (74-106) mg/dL Calcium 9.7 (8.5-10.1) mg/dL Magnesium 2.1 (1.8-2.4) mg/dL Total Bilirubin 1.0 (0.2-1.0) mg/dL AST 28 (15-37) U/L ALT 30 (14-59) U/L Alkaline Phosphatase 116 (46-116) U/L Troponin I Pending < 50 (<or=60) ng/L NT-Pro-B Natriuret Pep 1489 H (<300) pg/mL Total Protein 8.1 (6.4-8.2) g/dL Albumin 3.3 L (3.4-5.0) g/dL Intake and Output - 24 Hour Total 06/19/23 05:46 thru 06/19/23 05:51 Weight 94 kg Falls Risk Assessment History of Falls No History 06/19/23 05:59 Contributing Factors No Factors 06/19/23 05:59 Ambulatory Aids Independent 06/19/23 05:59 Tubes/Lines None 06/19/23 05:59 Gait Evaluation No gait disturbance 06/19/23 05:59 Cognition No cognitive impairment 06/19/23 05:59 Fall Total Score 0 06/19/23 05:59 Level of Risk Standard/Low Risk 06/19/23 05:59 v v v v v v v v v Sending and/or Receiving Nurses: Please use comment section below to note any information pertinent to the patient hand-off not included above. Information / Comments: Report received from:
[2023-06-19] MEDS: dilTIAZem 125 MG in Normal Saline 100 ML 10 MG IV (09:10)
--- NOTE | 2023-06-19 09:21 | PDOC.CMIN ---
Date of service: 06/19/23 Time of Service: 09:21 Care Management Initial Assmt Initial Assessment REASON FOR HOSPITALIZATION:: Atrial fibrillation PREVIOUS FUNCTIONAL STATUS/SOCIAL/FAMILY SUPPORTS:: Edwige lives in [facility] ADVANCE DIRECTIVES:: none Has patient been provided with info about the portal/API?: Yes Did the patient sign up for the portal?: No CODE STATUS:: Full Code INSURANCE COVERAGE / FINANCIAL ISSUES:: Medicare [place] [employer] Medicare Supplement PRIMARY CARE PHYSICIAN:: Esther Vemra POTENTIAL DISCHARGE NEEDS:: follow up with PCP and plan of care PATIENT/FAMILY EDUCATION NEEDS:: Review discharge instructions, activity, limitations, diet, follow up plan, discuss [employer] TRANSPORTATION:: via private vehicle with family PLAN:: Anticipate Edwige will be discharged home with no new services. She will follow up with her community providers and plan of care and transport with family. CM will follow and continue to assess for discharge needs. PFSH All Active Problems (Updated 06/19/23 @ 08:37 by Irene Marquez MD) Tachycardia (Acute) COPD (chronic obstructive pulmonary disease) (Chronic) Atrial fibrillation (Chronic 04/29/14) Hypertension (Chronic) CAD (coronary artery disease) (Chronic) a. drug eluting stents Obesity (Chronic) BMI 33.0-33.9,adult (Chronic) Osteoarthritis (Chronic) H/O carpal tunnel syndrome (Chronic) Chronic low back pain (Chronic) H/O hypercalcemia (Chronic) H/O hyperparathyroidism (Chronic) a. Surgery to remove adenomas Osteopenia (Chronic) Psoriasis (Chronic) Elevated hematocrit (Chronic) Elevated hemoglobin (Chronic) Impaired fasting glucose (Chronic) Metabolic syndrome (Chronic) a. triglycerides greater than 300 and HDL less than 30 Hypertensive CKD (chronic kidney disease) (Chronic) A. probably stage 1 or 2 B. baseline creatinine 1.1 to 1.2 Sepsis (Acute) Prediabetes (Acute) Erythrocytosis (Chronic) Abnormal LFTs (Acute) Hypomagnesemia (Acute) Acute CHF (Acute) Discharge planning issues (Acute) DVT prophylaxis (Acute) Moderate pulmonary arterial systolic hypertension (Chronic) Acute renal insufficiency (Acute) Post-menopausal bleeding (Acute) Chronic atrial fibrillation with rapid ventricular response (Acute) Pneumonia (Acute) Acute kidney injury superimposed on chronic kidney disease (Acute) Peripheral neuropathy (Acute) Lung nodule (Acute) CHF (congestive heart failure) (Chronic) Exertional shortness of breath (Acute) Diabetes mellitus (Chronic) Fatigue (Acute) Increased sputum production (Acute) Snoring (Acute) Seasonal allergies (Acute) Hyperlipidemia (Acute) Skin lesion (Acute) Emphysema lung (Acute) Thyroid nodule (Acute) Medical History (Updated 06/19/23 @ 08:37 by Irene Marquez MD) Degenerative joint disease of right hip Cataracts, bilateral Trigger finger, right index finger Rosacea Leg pain, right Loss of balance Hyperparathyroidism Polycythemia vera CKD (chronic kidney disease) Pulmonary hypertension Muscle spasm Rhinitis PONV (postoperative nausea and vomiting) Acute bronchitis Surgical History H/O benign neoplasm resected Hx of cardiac cath 2 stents H/O parathyroidectomy s/p 2 stents Family History Other Heart disease Social History Smoking/Tobacco Use Status: Former Tobacco Use Quit Date: 07/18/06 Tobacco: How many years used: 30 Smoking risk assessment performed?: Yes Alcohol Intake: never Drug use: Never Substance use type: does not use What type of physical activity do you participate in: none Do you feel safe at home: Yes Additional Social history: lives alone.
--- NOTE | 2023-06-19 10:30 | RT.EKG_ITS ---
APPROVED REPORT Exam: Resting ECG Reason for Exam: F/u Afib Patient Location: I HR:81 bpm ECG Measurements Heart Rate 81 AXIS W[place] [id number] P [id number] QRSd 97 QRS 74 QT 385 T 203 QTc 447 Conclusion Atrial fibrillation...V-rate 71- 89, irreg A-activity Consider anterior infarct...Q >30mS in V2-V5
--- NOTE | 2023-06-19 10:32 | W.PM.HP.N ---
Date of service: 06/19/23 Time of Service: 10:00 Assessment and Plan Assessment and plan (1) Atrial fibrillation with rapid ventricular response: Status: Acute Assessment and plan: I suspect this was triggered by the URI. The rates are now under control. WIll monitor the patient over the next 24 hours on home doses of her medications. Will titrate the medications as needed. Continue apixaban. Obtain a repeat echocardiogram. (2) Right shoulder pain: Status: Resolved Assessment and plan: I suspect this was an anginal equivalent. Will continue home asa + anticoagulation, rate control, and obtain an echocardiogram looking for wall motion abnormalities. Monitor on tele. Troponins and EKG negative for acute ischemia so far. (3) URI (upper respiratory infection): Status: Acute Assessment and plan: Tested negative for FLUVID-19. CXR negative. Procalcitonin negative. No indication for abx. Will treat symptomatically should symptoms be clinically significant. (4) CAD (coronary artery disease): Status: Chronic Assessment and plan: No evidence of ACS on this admission, but as above - concern for angina. Consider outpatient ishcemic w/u. (5) Pulmonary hypertension: Assessment and plan: Continue outpatient diuretics. The patient does not use a CPAP for her JESICA. (6) DVT prophylaxis: Status: Acute Assessment and plan: ON therapeutic apixaban (7) Discharge planning issues: Status: Acute Assessment and plan: DNR/DNI, as verified with the patient. History of Present Illness History of Present Illness Chief Complaint: R shoulder pain Narrative: Ms Davis is a 72 year old female with PMHx of CAD s/p IL, Afib on cardizem/metoprolol/apixaban, CHFpEF (LVEF 50-55% on echo 08/17/22) as well as pulmonary hypertension, non-oxygen dependent COPD, JESICA not on CPAP, NSCLC s/p SBRT ([facility]) and a question of thyroid malignancy, currently under investigation, who presented to [facility] ED c/o R shoulder pain that started yesterday at around 9 pm and had persisted. The patient was concerned about this pain because this is the kind of pain she had when she had her heart attack, she stated, so she came to the hospital. The patient also states that since Tuesday, 7 days ago, she had been having upper respiratory symptoms (runny nose, cough productive of green sputum, but no f/c/sore throat/worsening shortness of breath from her baseline). As of yesterday, those symptoms were better, and the cough is no longer productive. A home COVID-19 test was negative. Yesterday, the patient noticed a knot in her R upper back and she was putting heat on it at home to try to help the pain. However, then the R shoulder pain started and the patient could not sleep because of it. The patient specifically denies chest pain, palpitations, dizziness, nausea, blood in stool or urine. She states she never feels when her HR is rapid. She states she had not missed any doses of her medications. On arrival to the ED, the patient was found to be in Rapid Afib with HR in 160s-170s. She received a bolus of 20 mg of IV cardizem followed by a cardizem gtt with a significant improvement of her heart rates as well as resolution of her R shoulder pain. Her first troponin and EKG were negative for acute ischemia. A hospitalist admission to the ICU was requested for continued care. The patient states she is DNR/DNI. Review of Systems All systems reviewed & are unremarkable except as noted in HPI and below PFSH All Active Problems (Updated 06/19/23 @ 14:01 by Sophia Estrada MD) URI (upper respiratory infection) (Acute) Atrial fibrillation with rapid ventricular response (Acute) Tachycardia (Acute) COPD (chronic obstructive pulmonary disease) (Chronic) Atrial fibrillation (Chronic 04/29/14) Hypertension (Chronic) CAD (coronary artery disease) (Chronic) a. drug eluting stents Obesity (Chronic) BMI 33.0-33.9,adult (Chronic) Osteoarthritis (Chronic) H/O carpal tunnel syndrome (Chronic) Chronic low back pain (Chronic) H/O hypercalcemia (Chronic) H/O hyperparathyroidism (Chronic) a. Surgery to remove adenomas Osteopenia (Chronic) Psoriasis (Chronic) Elevated hematocrit (Chronic) Elevated hemoglobin (Chronic) Impaired fasting glucose (Chronic) Metabolic syndrome (Chronic) a. triglycerides greater than 300 and HDL less than 30 Hypertensive CKD (chronic kidney disease) (Chronic) A. probably stage 1 or 2 B. baseline creatinine 1.1 to 1.2 Sepsis (Acute) Prediabetes (Acute) Erythrocytosis (Chronic) Abnormal LFTs (Acute) Hypomagnesemia (Acute) Acute CHF (Acute) Discharge planning issues (Acute) DVT prophylaxis (Acute) Moderate pulmonary arterial systolic hypertension (Chronic) Acute renal insufficiency (Acute) Post-menopausal bleeding (Acute) Chronic atrial fibrillation with rapid ventricular response (Acute) Pneumonia (Acute) Acute kidney injury superimposed on chronic kidney disease (Acute) Peripheral neuropathy (Acute) Lung nodule (Acute) CHF (congestive heart failure) (Chronic) Exertional shortness of breath (Acute) Diabetes mellitus (Chronic) Fatigue (Acute) Increased sputum production (Acute) Snoring (Acute) Seasonal allergies (Acute) Hyperlipidemia (Acute) Skin lesion (Acute) Emphysema lung (Acute) Thyroid nodule (Acute) Medical History (Updated 06/19/23 @ 14:01 by Sophia Estrada MD) Degenerative joint disease of right hip Cataracts, bilateral Trigger finger, right index finger Rosacea Leg pain, right Loss of balance Hyperparathyroidism Polycythemia vera CKD (chronic kidney disease) Pulmonary hypertension Muscle spasm Rhinitis PONV (postoperative nausea and vomiting) Acute bronchitis Surgical History H/O benign neoplasm resected Hx of cardiac cath 2 stents H/O parathyroidectomy s/p 2 stents Family History Other Heart disease Social History Smoking/Tobacco Use Status: Former Tobacco Use Quit Date: 07/18/06 Tobacco: How many years used: 30 Smoking risk assessment performed?: Yes Alcohol Intake: never Drug use: Never Substance use type: does not use Housing: house What type of physical activity do you participate in: none Do you feel safe at home: Yes Additional Social history: lives alone. Meds Allergies and Home Medications Allergies Allergy/AdvReac Type Severity Reaction Status Date / Time clopidogrel [From Plavix] Allergy Unknown Verified 06/19/23 07:35 iohexol [From Omnipaque 140] Allergy Skin Rash Verified 06/19/23 07:35 pseudoephedrine Allergy Verified 06/19/23 07:35 [From Sudafed] Sulfa (Sulfonamide Allergy Verified 06/19/23 07:35 Antibiotics) erythromycin base AdvReac GI Verified 06/19/23 07:35 [Erythromycin Base] metal Allergy Intermediate Skin Rash Uncoded 12/03/23 07:35 Home Medications Medication Instructions Recorded Confirmed Type nitroglycerin 0.4 mg sublingual 0.4 mg sublingual PER PROTOCOL 11/29/12 06/19/23 History tablet cholecalciferol (vitamin D3) 25 1,000 units PO DAILY 09/26/13 06/19/23 History mcg (1,000 unit) tablet apixaban 5 mg tablet (Eliquis) 5 mg PO BID #60 tab-caps 10/21/16 06/19/23 History calcium carbonate 430 mg calcium 1,000 mg PO DAILY 12/21/18 06/19/23 History (1,000 mg) chewable tablet aspirin 81 mg tablet,delayed 81 mg PO DAILY #90 tabs 08/06/19 06/19/23 Rx release (Adult Aspirin Regimen) metoprolol succinate 100 mg 100 mg PO DAILY #90 tabs 09/11/19 06/19/23 Rx tablet,extended release 24 hr montelukast 10 mg tablet 10 mg PO HS 05/19/20 06/19/23 History betamethasone valerate 0.1 % 1 applic topical DAILY PRN 03/03/22 06/19/23 History topical ointment liraglutide 0.6 mg/0.1 mL (18 mg/3 0.6 mg subcut HS 03/03/22 06/19/23 History mL) subcutaneous pen injector ([employer] 3-Abdulaziz) diltiazem HCl 120 mg capsule,24 120 mg PO DAILY #90 caps 05/20/22 06/19/23 Rx hr,extended release furosemide 40 mg tablet (Lasix) 60 mg PO DAILY 05/20/22 06/19/23 History lisinopril 10 mg tablet 10 mg PO DAILY 05/20/22 06/19/23 History tiotropium bromide 1.25 2 spray inhalation DAILY 06/25/22 06/19/23 History mcg/actuation mist for inhalation (Spiriva Respimat) fluorouracil 5 % topical cream 1 applic topical BID 3 weeks #40 06/03/23 06/19/23 Rx (Efudex) grams insulin NPH isoph U-100 human 100 24 unit subcut DAILY 06/19/23 06/19/23 History unit/mL (3 mL) subcutaneous pen (Novolin N FlexPen) metoprolol succinate 50 mg 50 mg PO DAILY 06/19/23 06/19/23 History tablet,extended release 24 hr Exam Narrative Exam Narrative: General: Pleasant obese female who is Sitting up comfortably in bed, A&Ox3, no dyspnea/tachypnea/cyanosis on RA, HR 89 on the monitor (Afib) Neurological: A&Ox3, no focal deficits Psychiatric: Appropriate speech pattern/content Skin: Visible skin intact HEENT: Atraumatic, normocephalic, EOMI, dry MM, clear oropharynx, no submandibular or cervical lymphadenopathy, ?goiter, no JVD Cardiovascular: irregularly irregular rhythm, no m/r/g Lungs: CTAB Gastrointestinal: soft, nontender, nondistended Genitourinary: deferred Extremities: trace edema BLEs, +1 pedal pulses B, no c/c Results Imaging Additional studies: EKG #1: Afib, HR 155, nonspecific ST-T changes EKG #2: Afib, HR 80, nonspecific ST-T changes CXR #1: No definite acute cardiopulmonary abnormality on portable chest radiograph. Significant portions of the left lung are partially obscured by extraneous artifact. CXR #2: No acute cardiopulmonary abnormality detected on AP portable chest radiograph. Labs 06/19/23 05:55 06/19/23 05:55 Labs: Laboratory Results - last 24 hr 06/19/23 05:55 WBC 10.91 H RBC 5.71 H Hgb 17.6 H Hct 52.1 H MCV 91 MCH 30.8 MCHC 33.8 RDW 13.7 Plt Count 291 MPV 11.1 H Immature Gran % 0.3 Neutrophils % 70.0 Lymphocytes % 17.0 Monocytes % 10.7 Eosinophils % 1.5 Basophils % 0.5 Nucleated RBC % 0.0 Absolute Neutrophils 7.64 H Absolute Lymphocytes 1.85 Absolute Monocytes 1.17 H Absolute Eosinophils 0.16 Absolute Basophils 0.05 Sodium 140 Potassium 3.5 Chloride 101 Carbon Dioxide 31.2 Anion Gap 7.8 BUN 22 H Creatinine 1.3 H Est GFR (CKD-EPI 2020) 43.69 Glucose 171 H Calcium 9.7 Magnesium 2.1 Total Bilirubin 1.0 AST 28 ALT 30 Alkaline Phosphatase 116 Troponin I < 50 NT-Pro-B Natriuret Pep 1489 H Total Protein 8.1 Albumin 3.3 L Last Vital Signs Temp 36.3 C L 06/19/23 09:16 Pulse 84 06/19/23 09:16 Resp 16 06/19/23 09:16 BP 129/88 06/19/23 09:16 Pulse Ox 94 06/19/23 09:16 Time Spent Time spent with Patient: 55-74 minutes Time was spent: preparing to see the patient(eg.review tests), obtaining and/or reviewing separately otained hiistory, ordering medications,tests, procedures, referring, communicating with other health client care representative, indepentently interpreting results, counseling the patient and care coordination
[2023-06-19] MEDS: Metoprolol CR 50 MG TABCR PO (10:52)
[2023-06-19] MEDS: Metoprolol CR 100 MG TABCR PO (10:52)
[2023-06-19] MEDS: Cholecalciferol (Vitamin D3) 1,000 UNIT TAB 1000 UNITS PO (10:52)
[2023-06-19] MEDS: Lisinopril 10 MG TAB PO (10:52)
[2023-06-19] MEDS: Aspirin E.C. 81 MG TABEC PO (10:53)
[2023-06-19] MEDS: Furosemide 40 MG TAB 60 MG PO (10:53)
[2023-06-19] MEDS: Apixaban 5 MG TAB PO ×2 (10:53→21:31)
[2023-06-19 11:09] LABS: Troponin I < 50 ng/L (<or=60)
[2023-06-19] MEDS: dilTIAZem CD 120 MG CAPCR PO (11:18)
--- NOTE | 2023-06-19 11:38 | DI.VRAD_ITS ---
PROCEDURE INFORMATION: Exam: XR Chest Exam date and time: 06/19/2023 11:10 AM Age: 72 years old Clinical indication: Abnormal findings; Patient HX: ? Pna/chf: Artifact on original cxr TECHNIQUE: Imaging protocol: Radiologic exam of the chest. Views: 1 view. COMPARISON: CR XR PORTABLE CHEST AP 06/19/2023 6:32 AM FINDINGS: Lungs: No focal pulmonary consolidation detected. Left lung is better visualized on the current study following removal of the extraneous artifact that obscures portions of the left lung on the prior exam. Pleural spaces: No significant pleural fluid. No pneumothorax detected. Heart/Mediastinum: Heart size is stable. There is no pulmonary vascular congestion or other overt evidence of CHF. Bones/joints: No obvious acute abnormality. IMPRESSION: No acute cardiopulmonary abnormality detected on AP portable chest radiograph. Dictated and Authenticated by: Jose Moscoso MD. Ordering:TEJAL Cortes MD
[2023-06-19 12:03] LABS: Procalcitonin < 0.1 ng/mL
[2023-06-19] MEDS: Insulin Aspart 300 UNITS/3 ML PEN SC ×3 (12:19→21:32)
[2023-06-19] MEDS: Insulin NPH-Human 300 UNITS/3 ML PEN 24 UNIT SC (12:20)
[2023-06-19] MEDS: Tiotropium Bromide-Respimat 10 PUFF INH 2 PUFF IH (12:26)
[2023-06-19 12:43] LABS: COVID-19 PCR Negative (Negative); Influenza A PCR Negative (Negative); Influenza B PCR Negative (Negative); RSV PCR Negative (Negative); Source Nasopharynx
[2023-06-19] MEDS: Normal Saline Flush 10 ML SYR IVP (13:15)
[2023-06-19 13:53] LABS: Lab Add On Test COMPLETED
[2023-06-19 14:13] LABS: TSH 0.84 uIU/mL (0.36-3.74)
[2023-06-19 14:18] LABS: Troponin I < 50 ng/L (<or=60)
[2023-06-19 14:26] LABS: Lab Add On Test DONE
[2023-06-19] MEDS: Montelukast 10 MG TAB PO (21:31)
[2023-06-20] VITALS (7 sets, daily range): BP systolic 118–148; BP diastolic 65–95; PULSE 64–117; RESP 16–18; TEMP 35.6–36.5; O2SAT 93–95
--- NOTE | 2023-06-20 00:02 | W.PM.PROGNOT ---
Date of Service Date of service: 06/20/23 Time of Service: 00:02 Assessment and Plan Assessment and plan (1) Atrial fibrillation with rapid ventricular response: Status: Acute Assessment and plan: will increase cardizem dose as she responded well to cardizem drip. prn lopressor as needed. serial EKG and troponin. continue tele and monitor. Subjective Subjective Interval history since last seen: patient noted to have heart rated sustained over 120's and reporting right shoulder pain consistent with previous GA, reporting nausea, no vomiting, feels afib which she states is unusual. Exam Const General: no acute distress, anxious and other (pink warm dry and well perfused) Nutritional Appearance: overweight Orientation: alert, awake and oriented x3 HENMT Head: normal to inspection, normocephalic and atraumatic Mouth: oral mucosae normal Resp Effort & Inspection: normal respiratory effort Auscultation: clear to auscultation bilaterally and diminished lung sounds Cardio Rate: tachycardic Rhythm: abnormal rhythm (uncontrolled afib) Skin General skin exam: no rashes or lesions noted Objective Last Vital Signs Temp 36.4 C L 06/19/23 19:35 Pulse 82 06/19/23 19:35 Resp 16 06/19/23 19:35 BP 138/70 06/19/23 19:35 Pulse Ox 91 L 06/19/23 19:35 Laboratory Results - last 24 hr 06/19/23 06/19/23 06/19/23 05:55 09:07 10:45 WBC 10.91 H RBC 5.71 H Hgb 17.6 H Hct 52.1 H MCV 91 MCH 30.8 MCHC 33.8 RDW 13.7 Plt Count 291 MPV 11.1 H Immature Gran % 0.3 Neutrophils % 70.0 Lymphocytes % 17.0 Monocytes % 10.7 Eosinophils % 1.5 Basophils % 0.5 Nucleated RBC % 0.0 Absolute Neutrophils 7.64 H Absolute Lymphocytes 1.85 Absolute Monocytes 1.17 H Absolute Eosinophils 0.16 Absolute Basophils 0.05 Sodium 140 Potassium 3.5 Chloride 101 Carbon Dioxide 31.2 Anion Gap 7.8 BUN 22 H Creatinine 1.3 H Est GFR (CKD-EPI 2020) 43.69 Glucose 171 H Calcium 9.7 Magnesium 2.1 Total Bilirubin 1.0 AST 28 ALT 30 Alkaline Phosphatase 116 Troponin I < 50 Cancelled < 50 NT-Pro-B Natriuret Pep 1489 H Total Protein 8.1 Albumin 3.3 L Procalcitonin < 0.1 TSH 0.84 Free T4 1.30 COVID-19 Source SARS-CoV-2 (PCR) Influenza Type A (PCR) Influenza Type B (PCR) RSV (PCR) Add-On Test Request DONE 06/19/23 06/19/23 06/19/23 11:30 13:50 13:52 WBC RBC Hgb Hct MCV MCH MCHC RDW Plt Count MPV Immature Gran % Neutrophils % Lymphocytes % Monocytes % Eosinophils % Basophils % Nucleated RBC % Absolute Neutrophils Absolute Lymphocytes Absolute Monocytes Absolute Eosinophils Absolute Basophils Sodium Potassium Chloride Carbon Dioxide Anion Gap BUN Creatinine Est GFR (CKD-EPI 2020) Glucose Calcium Magnesium Total Bilirubin AST ALT Alkaline Phosphatase Troponin I < 50 NT-Pro-B Natriuret Pep Total Protein Albumin Procalcitonin TSH Free T4 COVID-19 Source Nasopharynx SARS-CoV-2 (PCR) Negative Influenza Type A (PCR) Negative Influenza Type B (PCR) Negative RSV (PCR) Negative Add-On Test Request COMPLETED Time Spent with Patient Time Spent with Patient: 25-34 minutes Time was spent: preparing to see the patient(eg.review tests), obtaining and/or reviewing separately otained hiistory, ordering medications,tests, procedures, indepentently interpreting results and counseling the patient
[2023-06-20] MEDS: dilTIAZem 60 MG TAB PO ×5 (00:20→23:41)
[2023-06-20] MEDS: Melatonin 3 MG TAB PO ×2 (00:30→20:21)
[2023-06-20 00:38] LABS: Troponin I < 50 ng/L (<or=60)
[2023-06-20] MEDS: Acetaminophen 325 MG TAB PO ×3 (01:14→22:35)
[2023-06-20 07:06] LABS: Anion Gap 5.4 mmol/L (3-11); BUN 22 mg/dL (7-18); CO2 30.6 mmol/L (21.0-32.0); CREATININE 1.1 mg/dL (0.55-1.02); Calcium 8.8 mg/dL (8.5-10.1); Chloride 103 mmol/L (98-107); Estimated GFR 53.39 (mL/min/1.73m2); Glucose 160 mg/dL (74-106); Magnesium 1.9 mg/dL (1.8-2.4); Potassium 3.5 mmol/L (3.5-5.1); Sodium 139 mmol/L (136-145); Troponin I < 50 ng/L (<or=60)
--- NOTE | 2023-06-20 08:00 | DI.US_ITS ---
APPROVED REPORT EXAM: Comprehensive 2D, Doppler, and color-flow Echocardiogram Patient Location: In-Patient Room/Bed: [address] [employer] Instructor: Lester Espinoza RDCS (AE) Indications: afib, pulmonary HTN Other Information Study Quality: Adequate. Technically limited study due to body habitus. Conclusion Mild concentric left ventricular hypertrophy. Ejection fraction is 55%. No segmental wall motion ab normalities are identified. Patient is in atrial fibrillation with a borderline rate and beat-to-claire t variation Normal right ventricular size and systolic function Left atrium is moderately enlarged. Right atrium is mildly enlarged Aortic valve is sclerotic without stenosis or regurgitation Normal mitral valve with mild regurgitation Normal tricuspid valve with moderate regurgitation. Estimated right ventricular systolic pressure is 39 mmHg Mildly dilated ascending aorta 3.56 cm Wall motion Left Ventricle The left ventricle is normal size. The left ventricular systolic function is normal. The left ventric ular ejection fraction is within the normal range. Mild concentric left ventricular hypertrophy. Ther e is normal LV segmental wall motion. Indeterminate due to atrial fibrillation There is no ventricula r septal defect visualized. LVEF is 55%. Right Ventricle The right ventricle is normal size. The right ventricular systolic function is normal. The RVSP is 38 .9 mmHg. Atria Left atrium is moderately dilated. Right atrium is mildly dilated. The interatrial septum is intact w ith no evidence for an atrial septal defect. Aortic Valve The Aortic valve is sclerotic. Aortic valve is probably trileaflet. There is no aortic valvular steno sis. No aortic regurgitation is present. Mitral Valve The mitral valve is normal in structure. No evidence of mitral valve stenosis. Mild mitral regurgitat ion. Tricuspid Valve The tricuspid valve is normal in structure. There is no tricuspid valve stenosis. Moderate tricuspid regurgitation. Pulmonic Valve Pulmonic valve is not well visualized. There is no pulmonic valvular stenosis. There is no pulmonic v alvular regurgitation. Great Vessels The aortic root is normal in size. The ascending aorta is mildly dilated. Aortic arch is not well vis ualized. IVC is normal in size and collapses >50% with inspiration. Pericardium There is no pericardial effusion. 2D Dimensions IVSD d PLAX 1.23 cm F: 0.6-1.0 Ao Root d 3.14 cm F: 2.7 - 3.3 LVPW d PLAX 1.24 cm F: 0.6 - 1.0 Ao Asc Diam d 3.56 cm F: 2.3 - 3.1 LVID d PLAX 3.88 cm F: 3.8 - 5.2 LVDs 2.83 cm F: 2.2 - 3.5 LV EF Teichholz 53.2 % FS 26.93 % LV EDV (Teich) 65.0 mL LV ESV (Teich) 30.4 mL Stroke Vol Index (Teich) 18.20 M-Mode TAPSE 1.58 cm (M/F) >1.7 Auto EF LV EDV A4C 86.3 mL LV EDV A2C 79.5 mL LV EDV BP 82.0 mL LV ESV A4C 42.8 mL LV ESV A2C 35.9 mL LV ESV BP 39.2 mL LVEF(%) A4C 50.4 % LVEF(%) A2C 54.9 % LVEF(%) BP 52.2 % LV SV A4C 43.5 ml LV SV A2C 43.6 ml LV SV BP 42.8 ml LV CO A4C 4.8 L/min LV CO A2C 5.3 L/min LV CO BP 5.1 L/min HR A4C 110.77 BPM HR A2C 122.05 BPM LV EDV Index (BP) LA Volume LA Length A4C 6.8 cm LA Length A2C LA Area A4C s 20.73 cm2 LA Area A2C s LA Vol A4C A-L 53.43 mL LA Vol A2C A-L LA Vol Biplane A-L LA Vol A4C MOD 54.0 mL LA Vol A2C MOD LA Vol BP MOD RA Volume RA Area A4C 16.9 cm2 RA ESV A4C (A-L) 45.6mL RA Vol/BSA A4C A-L RA Length A4C 5.3 cm RA ESV A4C (MOD) 44.5mL LV Diastology MV E' medial 0.089 (>0.07 m/s) MV E Vmax 1.31 (0.4-1.3 m/s) MV E/E' MED 14.78 (<14) MV E' lateral 0.075 (>0.1 m/s) MV E/E' LAT 17.64 (<14) MV E' Average 0.082 m/s MV E/E'(average) 16.08 Aortic Valve AoV Vmax 1.28 m/s LVOT Vmax 1.00 m/s AoV Peak Grad 6.5 mmHg LVOT Peak Grad 4.0 mmHg AoV Area (Vmax) 1.79 cm2 LVOT VTI 0.183 m AoV VTI 0.285 m LVOT Mean Grad 2.0 mmHg AoV Mean Crow. 0.90 m/s LVOT SV 41.96 mL AoV Mean Grad 3.7 mmHg LVOT Diam s 1.70 cm AoV Area (VTI) 1.47 cm2 Velocity Ratio 0.78 Mitral Valve MV DT 144 (160-240 msec) Pulmonary Valve PV Vmax 0.91 (0.5-1.5 m/s) RVOT Vmax 0.83 m/s PV Peak Grad 3.3 mmHg RVOT Peak Gr. 2.8 mmHg PV Mean Crow 0.59 m/s RVOT VTI 0.154 m PV Mean Grad 1.6 mmHg RVOT Mean Gr. 1.3 mmHg Tricuspid Valve RA Pressure 3.00 mmHg TR Vmax 3.00 m/s TR Peak Grad 35.9 mmHg RVSP (TR) 38.9 mmHg
[2023-06-20] MEDS: Metoprolol CR 50 MG TABCR PO (08:46)
[2023-06-20] MEDS: Cholecalciferol (Vitamin D3) 1,000 UNIT TAB 1000 UNITS PO (08:46)
[2023-06-20] MEDS: Apixaban 5 MG TAB PO ×2 (08:46→20:21)
[2023-06-20] MEDS: Aspirin E.C. 81 MG TABEC PO (08:46)
[2023-06-20] MEDS: Lisinopril 10 MG TAB PO (08:46)
[2023-06-20] MEDS: Metoprolol CR 100 MG TABCR PO (08:46)
[2023-06-20] MEDS: Calcium Carbonate 1.5 GM TAB PO (08:46)
[2023-06-20] MEDS: Furosemide 40 MG TAB 60 MG PO (08:47)
[2023-06-20] MEDS: Insulin NPH-Human 300 UNITS/3 ML PEN 24 UNIT SC (08:48)
[2023-06-20] MEDS: Insulin Aspart 300 UNITS/3 ML PEN SC ×4 (08:49→22:30)
[2023-06-20] MEDS: Tiotropium Bromide-Respimat 10 PUFF INH 2 PUFF IH (09:44)
--- NOTE | 2023-06-20 10:30 | RT.EKG_ITS ---
APPROVED REPORT Exam: Resting ECG Reason for Exam: episode of Vtach, Afib, angina Patient Location: I HR:91 bpm ECG Measurements Heart Rate 91 AXIS PA [id number] P [id number] QRSd 116 QRS 70 QT 415 T 120 QTc 511 Conclusion Atrial fibrillation...V-rate 78-118, irreg A-activity Nonspecific intraventricular conduction delay...QRSd >115mS, not LBBB/RBBB Nonspecific T abnormalities, lateral leads...T <-0.10mV, I aVL V5 V6
--- NOTE | 2023-06-20 10:35 | W.PM.PROGNOT ---
Date of Service Date of service: 06/20/23 Time of Service: 10:35 Assessment and Plan Assessment and plan (1) Atrial fibrillation with rapid ventricular response: Status: Acute Assessment and plan: I suspect this was triggered by the URI. Rates are now controlled on cardizem 60 mg PO Q6hrs + toprol XL 150 mg daily. HR is actual down to the 60s. Will continue monitoring on this new dose of cardizem. Continue apixaban. Echo: LVEF 55%, no segmental wall motion abnormalities; aortic sclerosis, RVSP of 39 mmHg. (2) Right shoulder pain: Status: Resolved Assessment and plan: I suspect this was an anginal equivalent. C/s cardiology, especially now that this has recurred and the patient had a short run of Vtach. Continue home asa + anticoagulation, rate control. No wall motion abnormalities on echo. Monitor on tele. Repeat EKG and troponin. (3) URI (upper respiratory infection): Status: Acute Assessment and plan: Tested negative for FLUVID-19. CXR negative. Procalcitonin negative. However, sputum is purulent by description. Trial doxycycline. (4) CAD (coronary artery disease): Status: Chronic Assessment and plan: No evidence of ACS on this admission, but as above - concern for angina. C/s cardiology: ? unstable angina and need for inpatient ischemic workup? (5) Pulmonary hypertension: Assessment and plan: Continue outpatient diuretics. The patient does not use a CPAP for her JESICA. (6) DVT prophylaxis: Status: Acute Assessment and plan: On therapeutic apixaban (7) Discharge planning issues: Status: Acute Assessment and plan: DNR/DNI, as verified with the patient. Transferred to the medical surgical floor on day of admission. Anticipate discharge home in the next 24-48 hrs. Subjective Subjective Interval history since last seen: Ms Davis went back into rapid Afib overnight and required an increase in dose of her cardizem to 60 mg PO q6Hrs. At the time of rapid rates, she does state she had shoulder pain again. She has some now as well. She had an episode of 8 beats of Vtach about an hour ago. She is not sure what she was doing then or if she was symptomatic. Denies dizziness, CP now (but did feel a sensation of chest tightness this morning), denies SOB, n/v. States cough is productive of green sputum and her nasal discharge is green this am. Exam Narrative Exam Narrative: General: Pleasant female who appears comfortable in bed, A&Ox3, laying on her R shoulder. HEENT: EOMI, MMM Cardiovascular: irregularly irregular rhythm, no m/r/g Lungs: CTAB Gastrointestinal: soft, nontender, nondistended Extremities: trace edema BLEs, +1 pedal pulses B, no c/c Objective Last Vital Signs Temp 35.6 C L 06/20/23 08:52 Pulse 64 06/20/23 08:52 Resp 18 06/20/23 08:52 BP 132/81 06/20/23 08:52 Pulse Ox 95 06/20/23 08:52 Laboratory Results - last 24 hr 06/19/23 06/19/23 06/19/23 09:07 10:45 11:30 Sodium Potassium Chloride Carbon Dioxide Anion Gap BUN Creatinine Est GFR (CKD-EPI 2020) Glucose Calcium Magnesium Troponin I Cancelled < 50 Procalcitonin < 0.1 TSH 0.84 Free T4 1.30 COVID-19 Source Nasopharynx SARS-CoV-2 (PCR) Negative Influenza Type A (PCR) Negative Influenza Type B (PCR) Negative RSV (PCR) Negative Add-On Test Request DONE 06/19/23 06/19/23 06/20/23 13:50 13:52 00:15 Sodium Potassium Chloride Carbon Dioxide Anion Gap BUN Creatinine Est GFR (CKD-EPI 2020) Glucose Calcium Magnesium Troponin I < 50 < 50 Procalcitonin TSH Free T4 COVID-19 Source SARS-CoV-2 (PCR) Influenza Type A (PCR) Influenza Type B (PCR) RSV (PCR) Add-On Test Request COMPLETED 06/20/23 06/20/23 06/20/23 06:22 06:22 06:22 Sodium Cancelled 139 Potassium Cancelled 3.5 Chloride Cancelled Carbon Dioxide Anion Gap BUN Creatinine Est GFR (CKD-EPI 2020) Glucose Calcium Magnesium Troponin I Procalcitonin TSH Free T4 COVID-19 Source SARS-CoV-2 (PCR) Influenza Type A (PCR) Influenza Type B (PCR) RSV (PCR) Add-On Test Request 06/20/23 06/20/23 06/20/23 06:22 06:22 06:22 Sodium Potassium Chloride 103 Carbon Dioxide Cancelled 30.6 Anion Gap Cancelled 5.4 BUN Cancelled Creatinine Est GFR (CKD-EPI 2020) Glucose Calcium Magnesium Troponin I Procalcitonin TSH Free T4 COVID-19 Source SARS-CoV-2 (PCR) Influenza Type A (PCR) Influenza Type B (PCR) RSV (PCR) Add-On Test Request 06/20/23 06/20/23 06/20/23 06:22 06:22 06:22 Sodium Potassium Chloride Carbon Dioxide Anion Gap BUN 22 H Creatinine Cancelled 1.1 H Est GFR (CKD-EPI 2020) Cancelled 53.39 Glucose Cancelled Calcium Magnesium Troponin I Procalcitonin TSH Free T4 COVID-19 Source SARS-CoV-2 (PCR) Influenza Type A (PCR) Influenza Type B (PCR) RSV (PCR) Add-On Test Request 06/20/23 06/20/23 06/20/23 06:22 06:22 06:22 Sodium Potassium Chloride Carbon Dioxide Anion Gap BUN Creatinine Est GFR (CKD-EPI 2020) Glucose 160 H Calcium Cancelled 8.8 Magnesium Cancelled 1.9 Troponin I < 50 Procalcitonin TSH Free T4 COVID-19 Source SARS-CoV-2 (PCR) Influenza Type A (PCR) Influenza Type B (PCR) RSV (PCR) Add-On Test Request Objective Narrative Objective Narrative: Echo; Mild concentric left ventricular hypertrophy. Ejection fraction is 55%. No segmental wall motion abnormalities are identified. Patient is in atrial fibrillation with a borderline rate and [id number] variation Normal right ventricular size and systolic function Left atrium is moderately enlarged. Right atrium is mildly enlarged Aortic valve is sclerotic without stenosis or regurgitation Normal mitral valve with mild regurgitation Normal tricuspid valve with moderate regurgitation. Estimated right ventricular systolic pressure is 39 mmHg Mildly dilated ascending aorta 3.56 cm CXR (yesterday): No acute pulmonary findings on this single AP portable view of the chest. Sternotomy wires. Mild cardiomegaly. Time Spent with Patient Time Spent with Patient: 35-49 minutes Time was spent: preparing to see the patient(eg.review tests), obtaining and/or reviewing separately otained hiistory, ordering medications,tests, procedures, referring, communicating with other health animal care specialist, indepentently interpreting results, counseling the patient and care coordination
--- NOTE | 2023-06-20 10:48 | NUR.NOTE ---
Accessed chart to determine orders for EKG and to determine whether or not one needs to be cancelled. Nursing Note:
[2023-06-20] MEDS: guaiFENesin 600 MG TABCR PO ×2 (10:51→20:21)
[2023-06-20] MEDS: Doxycycline Hyclate 100 MG CAP PO ×2 (10:52→22:30)
[2023-06-20 11:37] LABS: Troponin I < 50 ng/L (<or=60)
--- NOTE | 2023-06-20 13:07 | PDOC.CMIN ---
Date of service: 06/20/23 Time of Service: 13:07 Care Management Initial Assmt Initial Assessment REASON FOR HOSPITALIZATION:: Rapid Afib PREVIOUS FUNCTIONAL STATUS/SOCIAL/FAMILY SUPPORTS:: Edwige lives alone in a single family home in [facility] [place]. It is on 2 levels with the bedrooms being upstairs. She has been for 27 years. Edwige worked for [employer] for many years but is now retired. 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 Edwige has 2 children and 3 grandchildren who live locally and are very supportive.Edwige also identifies that her neighbors are very helpful. ADVANCE DIRECTIVES:: None on file. Has patient been provided with info about the portal/API?: Yes Did the patient sign up for the portal?: No CODE STATUS:: DNR/DNI INSURANCE COVERAGE / FINANCIAL ISSUES:: Medicare. [employer] PRIMARY CARE PHYSICIAN:: Esther Verma POTENTIAL DISCHARGE NEEDS:: Follow up with PCP and discharge plan of care PATIENT/FAMILY EDUCATION NEEDS:: Discharge plan, limitations, follow up and Ask Me Three ANTICIPATED BARRIERS TO DISCHARGE:: None identified. TRANSPORTATION:: via private vehicle with friends/family when ready PLAN:: Edwige will likely discharge home with no new services. She will transport with family and follow up with her PCP and discharge plan of care. CM will continue to support patient, family and discharge plans. PFSH All Active Problems (Updated 06/20/23 @ 13:28 by Shalonda Richardson MD) URI (upper respiratory infection) (Acute) Atrial fibrillation with rapid ventricular response (Acute) Tachycardia (Acute) COPD (chronic obstructive pulmonary disease) (Chronic) Atrial fibrillation (Chronic 04/29/14) Hypertension (Chronic) CAD (coronary artery disease) (Chronic) a. drug eluting stents Obesity (Chronic) BMI 33.0-33.9,adult (Chronic) Osteoarthritis (Chronic) H/O carpal tunnel syndrome (Chronic) Chronic low back pain (Chronic) H/O hypercalcemia (Chronic) H/O hyperparathyroidism (Chronic) a. Surgery to remove adenomas Osteopenia (Chronic) Psoriasis (Chronic) Elevated hematocrit (Chronic) Elevated hemoglobin (Chronic) Impaired fasting glucose (Chronic) Metabolic syndrome (Chronic) a. triglycerides greater than 300 and HDL less than 30 Hypertensive CKD (chronic kidney disease) (Chronic) A. probably stage 1 or 2 B. baseline creatinine 1.1 to 1.2 Sepsis (Acute) Prediabetes (Acute) Erythrocytosis (Chronic) Abnormal LFTs (Acute) Hypomagnesemia (Acute) Acute CHF (Acute) Discharge planning issues (Acute) DVT prophylaxis (Acute) Moderate pulmonary arterial systolic hypertension (Chronic) Acute renal insufficiency (Acute) Post-menopausal bleeding (Acute) Chronic atrial fibrillation with rapid ventricular response (Acute) Pneumonia (Acute) Acute kidney injury superimposed on chronic kidney disease (Acute) Peripheral neuropathy (Acute) Lung nodule (Acute) CHF (congestive heart failure) (Chronic) Exertional shortness of breath (Acute) Diabetes mellitus (Chronic) Fatigue (Acute) Increased sputum production (Acute) Snoring (Acute) Seasonal allergies (Acute) Hyperlipidemia (Acute) Skin lesion (Acute) Emphysema lung (Acute) Thyroid nodule (Acute) Medical History (Updated 06/20/23 @ 13:28 by Shalonda Richardson MD) Degenerative joint disease of right hip Cataracts, bilateral Trigger finger, right index finger Rosacea Leg pain, right Loss of balance Hyperparathyroidism Polycythemia vera CKD (chronic kidney disease) Pulmonary hypertension Muscle spasm Rhinitis PONV (postoperative nausea and vomiting) Acute bronchitis Surgical History H/O benign neoplasm resected Hx of cardiac cath 2 stents H/O parathyroidectomy s/p 2 stents Family History Other Heart disease Social History Smoking/Tobacco Use Status: Former Tobacco Use Quit Date: 07/18/06 Tobacco: How many years used: 30 Smoking risk assessment performed?: Yes Alcohol Intake: never Drug use: Never Substance use type: does not use Housing: house What type of physical activity do you participate in: none Do you feel safe at home: Yes Additional Social history: lives alone.
--- NOTE | 2023-06-20 13:23 | W.CARDCONSUL ---
Date of service: 06/20/23 Time of Service: 13:23 Assessment and Plan Assessment and plan (1) Atrial fibrillation: Status: Chronic Assessment and plan: Patient has permanent atrial fibrillation. Her heart rate is better controlled after being quite high on presentation Qualifiers: Atrial fibrillation type: permanent Qualified Code(s): I48.21 - Permanent atrial fibrillation (2) CAD (coronary artery disease): Status: Chronic Assessment and plan: Patient had bare-metal stents placed to the LAD and right coronary artery in 2007. Over the ensuing year she has had periodic presentations, including 1 in 2014 for right shoulder pain that was felt to be noncardiac. I think given that she had heart rates as high as 170 and no evidence of myocardial necrosis that this is reassuring. I do not think she requires additional cardiac testing at present, no stress test is advised She should continue with rate control and anticoagulation with Eliquis. We will follow in clinic as scheduled Qualifiers: Coronary Disease-Associated Artery/Lesion type: [place] artery [place] vs. transplanted heart: [place] heart Associated angina: unspecified whether angina present Qualified Code(s): I25.10 - Atherosclerotic heart disease of [place] coronary artery without angina pectoris (3) Right shoulder pain: Status: Resolved Assessment and plan: This may or may not represent angina. In the past she has had similar symptoms, cardiac catheterization repeated, no new findings Qualifiers: Chronicity: unspecified Qualified Code(s): M25.511 - Pain in right shoulder History of Present Illness Narrative: This 72-year-old woman came to the hospital because of right scapular pain. She reports that it was reminiscent of that she experienced in 2007 when she had an acute myocardial infarction. At that time she had bare-metal stents placed to the right coronary and mid LAD. She has had subsequent presentations for similar symptoms including 1 in 2014 to [facility] when she had repeat cardiac catheterization disclosed no new lesions. Patient came here to the hospital with the aforementioned pain, was found to be in atrial fibrillation with an uncontrolled ventricular response. Her heart rate has come under better control (she has permanent atrial fibrillation). Multiple cardiac enzymes have been performed. She has had at least 6 negative troponins. Patient says that there was a question of whether or not she should have a stress test for further evaluation Review of Systems Cardiovascular Cardiovascular: Reports as per HPI and Reports system reviewed and no additional complaints, except as documented PFSH All Active Problems (Updated 06/20/23 @ 13:28 by Shalonda Richardson MD) URI (upper respiratory infection) (Acute) Atrial fibrillation with rapid ventricular response (Acute) Tachycardia (Acute) COPD (chronic obstructive pulmonary disease) (Chronic) Atrial fibrillation (Chronic 04/29/14) Hypertension (Chronic) CAD (coronary artery disease) (Chronic) a. drug eluting stents Obesity (Chronic) BMI 33.0-33.9,adult (Chronic) Osteoarthritis (Chronic) H/O carpal tunnel syndrome (Chronic) Chronic low back pain (Chronic) H/O hypercalcemia (Chronic) H/O hyperparathyroidism (Chronic) a. Surgery to remove adenomas Osteopenia (Chronic) Psoriasis (Chronic) Elevated hematocrit (Chronic) Elevated hemoglobin (Chronic) Impaired fasting glucose (Chronic) Metabolic syndrome (Chronic) a. triglycerides greater than 300 and HDL less than 30 Hypertensive CKD (chronic kidney disease) (Chronic) A. probably stage 1 or 2 B. baseline creatinine 1.1 to 1.2 Sepsis (Acute) Prediabetes (Acute) Erythrocytosis (Chronic) Abnormal LFTs (Acute) Hypomagnesemia (Acute) Acute CHF (Acute) Discharge planning issues (Acute) DVT prophylaxis (Acute) Moderate pulmonary arterial systolic hypertension (Chronic) Acute renal insufficiency (Acute) Post-menopausal bleeding (Acute) Chronic atrial fibrillation with rapid ventricular response (Acute) Pneumonia (Acute) Acute kidney injury superimposed on chronic kidney disease (Acute) Peripheral neuropathy (Acute) Lung nodule (Acute) CHF (congestive heart failure) (Chronic) Exertional shortness of breath (Acute) Diabetes mellitus (Chronic) Fatigue (Acute) Increased sputum production (Acute) Snoring (Acute) Seasonal allergies (Acute) Hyperlipidemia (Acute) Skin lesion (Acute) Emphysema lung (Acute) Thyroid nodule (Acute) Medical History (Updated 06/20/23 @ 13:28 by Shalonda Richardson MD) Degenerative joint disease of right hip Cataracts, bilateral Trigger finger, right index finger Rosacea Leg pain, right Loss of balance Hyperparathyroidism Polycythemia vera CKD (chronic kidney disease) Pulmonary hypertension Muscle spasm Rhinitis PONV (postoperative nausea and vomiting) Acute bronchitis Surgical History H/O benign neoplasm resected Hx of cardiac cath 2 stents H/O parathyroidectomy s/p 2 stents Family History Other Heart disease Social History Smoking/Tobacco Use Status: Former Tobacco Use Quit Date: 07/18/06 Tobacco: How many years used: 30 Smoking risk assessment performed?: Yes Alcohol Intake: never Drug use: Never Substance use type: does not use Housing: house What type of physical activity do you participate in: none Do you feel safe at home: Yes Additional Social history: lives alone. Exam Const Other: Overweight elderly woman no acute distress Neck Other: Unable to assess JVP carotid pulsations are normal Resp Auscultation: clear to auscultation bilaterally Cardio Other: Irregularly irregular no murmur or gallop Results Last Vital Signs Temp 35.9 C L 06/20/23 11:30 Pulse 78 06/20/23 11:30 Resp 18 06/20/23 11:30 BP 134/65 06/20/23 11:30 Pulse Ox 94 06/20/23 11:30 Labs 06/19/23 05:55 06/20/23 06:22 Labs: Laboratory Results - last 24 hr 06/19/23 06/19/23 06/19/23 10:45 13:50 13:52 Sodium Potassium Chloride Carbon Dioxide Anion Gap BUN Creatinine Est GFR (CKD-EPI 2020) Glucose Calcium Magnesium Troponin I < 50 TSH 0.84 Free T4 1.30 Add-On Test Request DONE COMPLETED 06/20/23 06/20/23 06/20/23 00:15 06:22 06:22 Sodium Cancelled 139 Potassium Cancelled Chloride Carbon Dioxide Anion Gap BUN Creatinine Est GFR (CKD-EPI 2020) Glucose Calcium Magnesium Troponin I < 50 TSH Free T4 Add-On Test Request 06/20/23 06/20/23 06/20/23 06:22 06:22 06:22 Sodium Potassium 3.5 Chloride Cancelled 103 Carbon Dioxide Cancelled 30.6 Anion Gap Cancelled BUN Creatinine Est GFR (CKD-EPI 2020) Glucose Calcium Magnesium Troponin I TSH Free T4 Add-On Test Request 06/20/23 06/20/23 06/20/23 06:22 06:22 06:22 Sodium Potassium Chloride Carbon Dioxide Anion Gap 5.4 BUN Cancelled 22 H Creatinine Cancelled 1.1 H Est GFR (CKD-EPI 2020) Cancelled Glucose Calcium Magnesium Troponin I TSH Free T4 Add-On Test Request 06/20/23 06/20/23 06/20/23 06:22 06:22 06:22 Sodium Potassium Chloride Carbon Dioxide Anion Gap BUN Creatinine Est GFR (CKD-EPI 2020) 53.39 Glucose Cancelled 160 H Calcium Cancelled 8.8 Magnesium Cancelled Troponin I TSH Free T4 Add-On Test Request 06/20/23 06/20/23 06:22 10:45 Sodium Potassium Chloride Carbon Dioxide Anion Gap BUN Creatinine Est GFR (CKD-EPI 2020) Glucose Calcium Magnesium 1.9 Troponin I < 50 < 50 TSH Free T4 Add-On Test Request
[2023-06-20 13:49] LABS: Troponin I < 50 ng/L (<or=60)
--- NOTE | 2023-06-20 14:24 | W.NUTRFU ---
Date of service: 06/20/23 Time of Service: 11:00 Nutrition Note NOTE: received consult request re: routine diabetes education Pt is 72yo female admitted with Afib, R shoulder pain, URI. PMH significant for COPD, CAD, CHF, HTN, Obesity, DMII. A1C was done last in november 2022 and was 7.4 with A1C historically <7. glucose mainly 160-180 during admission and FBG this morning was 160. This admission getting 24units Humulin daily and sensitive insulin aspart sliding scale for meal coverage. Pt demonstrated adequate knowledge of food which raise glucose, stating they gave me a whole banana this morning when a serving is only half. She is displeased about her heart healthy diet assignment, saying that she doesn't have high blood pressure right now and was denied a piece of kamara at breakfast. Pt declined printed materials re: diabetes education. I liberalized her diet order and kept consistent CHO but changed heart healthy to low sodium with the caveat that she can have 1 piece of kamara at breakfast. Anticipate short hospital stay so this won't be clinically significant to her discharge status. Will continue to monitor nutrition status and provide nutrition interventions as appropriate. Time Spent in Nutritional Counseling and Treatment: 15 min
[2023-06-20] MEDS: Montelukast 10 MG TAB PO (20:21)
[2023-06-20] MEDS: Normal Saline Flush 10 ML SYR IVP (20:21)
[2023-06-21 03:50] VITALS: BP 137/87; PULSE 79; RESP 16; TEMP 36.3; O2SAT 93
[2023-06-21 05:55] VITALS: BP 150/94; PULSE 84
[2023-06-21] MEDS: dilTIAZem 60 MG TAB PO (06:00)
[2023-06-21 07:09] VITALS: BP 134/71; PULSE 67; RESP 18; TEMP 36.5; O2SAT 93
[2023-06-21 07:30] LABS: Anion Gap 7.6 mmol/L (3-11); BUN 23 mg/dL (7-18); CO2 30.4 mmol/L (21.0-32.0); Calcium 9.6 mg/dL (8.5-10.1); Chloride 104 mmol/L (98-107); Estimated GFR 59.86 (mL/min/1.73m2); Glucose 181 mg/dL (74-106); Potassium 3.8 mmol/L (3.5-5.1); Sodium 142 mmol/L (136-145)
[2023-06-21] MEDS: Tiotropium Bromide-Respimat 10 PUFF INH 2 PUFF IH (07:43)
[2023-06-21] MEDS: Calcium Carbonate 1.5 GM TAB PO (08:52)
[2023-06-21] MEDS: Lisinopril 10 MG TAB PO (08:52)
[2023-06-21] MEDS: Apixaban 5 MG TAB PO (08:52)
[2023-06-21] MEDS: Metoprolol CR 50 MG TABCR PO (08:53)
[2023-06-21] MEDS: Aspirin E.C. 81 MG TABEC PO (08:53)
[2023-06-21] MEDS: guaiFENesin 600 MG TABCR PO (08:53)
[2023-06-21] MEDS: Furosemide 40 MG TAB 60 MG PO (08:53)
[2023-06-21] MEDS: Cholecalciferol (Vitamin D3) 1,000 UNIT TAB 1000 UNITS PO (08:54)
[2023-06-21] MEDS: Insulin Aspart 300 UNITS/3 ML PEN SC ×2 (08:54→11:55)
[2023-06-21] MEDS: Metoprolol CR 100 MG TABCR PO (08:54)
[2023-06-21] MEDS: Insulin NPH-Human 300 UNITS/3 ML PEN 24 UNIT SC (08:55)
[2023-06-21] MEDS: Doxycycline Hyclate 100 MG CAP PO (10:24)
[2023-06-21] MEDS: dilTIAZem CD 120 MG CAPCR 240 MG PO (10:24)
--- NOTE | 2023-06-21 10:49 | NUR.NOTE ---
Accessed chart to determine orders for EKG and to determine whether or not an order needs to be cancelled. Nursing Note:
[2023-06-21 11:39] VITALS: BP 157/95; PULSE 68; RESP 18; TEMP 36.6; O2SAT 95
[2023-06-21] MEDS: Acetaminophen 325 MG TAB PO (11:54)
--- NOTE | 2023-06-21 12:31 | DSE_ITS ---
Date of service: 06/21/23 Time of Service: 12:31 DS: Diagnosis Discharge Diagnosis (1) Atrial fibrillation with rapid ventricular response: Status: Acute (2) CAD (coronary artery disease): Status: Chronic (3) Right shoulder pain: Status: Resolved Asessment and Plan: possible anginal equivalent (4) URI (upper respiratory infection): Status: Acute (5) Hypertension: Status: Chronic (6) COPD (chronic obstructive pulmonary disease): Status: Chronic (7) Pulmonary hypertension: Discharge Plan Disposition Patient Disposition: Home Condition: Improving Discharge Details Reason For Visit: Rapid Afib Admit Date/Time: 06/19/23 08:15 Admit Provider: Sophia Estrada Attending Provider: Sophia Estrada Primary Care Provider: Esther Verma Hospital Course Hospital Course: Mr Davis is a 72 year old female with PMHx of permanent Afib on apixaban, as well as h/o CAD s/p AKRYNA, negative cardiac cath in 2014, HTN, nonoxygen-dependent COPD, JESICA not on CPAP, who was amitted to [facility] ICU under the hospitalist service on 06/19/23 for rapid atrial fibrillation requiring cardizem gtt, having presented with R-shoulder pain c/w the pain she previously had during an acute AR. With rate control in the ED, her shoulder pain resolved, suggesting that this perhaps was an anginal equivalent, though she did not have any evidence of ischemia by troponins or EKG during her rapid rates, which per cardiology is reassuring. Cardiology did see the patient in consult and felt the patient would not need further ischemic workup. The patient's cardizem drip was discontinued and she was transitioned to her home medications (cardizem CD 120 mg Po daily and metoprolol XL 150 mg Po daily). However, there was a recurrence of rapid rates, and this required an increase a dose of her cardizem to 240 mg daily, which she has tolerated without recurrence of rapid rates and without hypotension. The patient is being discharged home on cardizem CD 240 mg as well as toprol XL 150 mg daily. It appears that the rapid Afib was triggered by an underlying upper respiratory infection/acute bronchitis. The patient had a negative PCR for COVID- 19/influenza/RSV, and her CXR was netgative. Given sputum color change to green, she was started on doxycycline. She is not requiring oxygen. She is stable for discharge home today with 7 more doses of doxycycline. She should follow up with her PCP and with cardiology. Care for patient as well as completion of her discharge summary on day of discharge took 45 minutes. Home Meds and New Rx's Prescriptions: New doxycycline hyclate 100 mg Capsule 100 mg PO Q12H Qty: 7 0RF guaifenesin [Mucus Relief ER] 600 mg Tablet Extended Release 12hr 600 mg PO BID PRN PRN (Reason: cough) Qty: 30 0RF diltiazem HCl 240 mg capsule,extended release 24hr 240 mg PO DAILY Qty: 30 0RF Continued fluorouracil [Efudex] 5 % cream 1 applic topical BID 21 Days Qty: 40 0RF aspirin [Adult Aspirin Regimen] 81 mg tablet,delayed release (DR/EC) 81 mg PO DAILY Qty: 90 0RF metoprolol succinate 100 mg tablet extended release 24 hr 100 mg PO DAILY Qty: 90 6RF furosemide [Lasix] 40 mg tablet 60 mg PO DAILY Victoza 3-Abdulaziz 0.6 mg/0.1 mL (18 mg/3 mL) pen injector 0.6 mg subcut HS Eliquis 5 MG tablet 5 mg PO BID Qty: 60 montelukast 10 mg tablet 10 mg PO HS betamethasone valerate 0.1 % ointment 1 applic topical DAILY PRN nitroglycerin 0.4 MG tablet, sublingual 0.4 mg Sublingual PER PROTOCOL Rx Instructions: needs script renewed cholecalciferol (vitamin D3) 1,000 UNITS tablet 1,000 units PO DAILY calcium carbonate 430 mg calcium (1,000 mg) Tablet,Chewable 1,000 mg PO DAILY lisinopril 10 mg tablet 10 mg PO DAILY Spiriva Respimat 1.25 mcg/actuation mist 2 spray INHALATION DAILY metoprolol succinate 50 mg tablet extended release 24 hr 50 mg PO DAILY Patient Comments: TAKE ONE TABLET BY MOUTH EVERY DAY with 100 mg tab for total dose = 150 mg Novolin N FlexPen 100 unit/mL (3 mL) insulin pen 24 unit SUBCUT DAILY Patient Comments: INJECT 24 UNITS UNDER THE SKIN ONCE DAILY Discontinued diltiazem HCl 120 mg capsule,extended release 24 hr 120 mg PO DAILY Qty: 90 3RF Discharge Instructions Instructions: Doxycycline (By mouth), A-fib (Atrial Fibrillation) (DC), Acute Bronchitis (ED) Additional Instructions: Return to the hospital with any fever, bleeding, chest pain or shortness of breath. Follow up with your PCP in 1-2 weeks. Follow up with cardiology. Stand Alone Forms: Nursing Discharge Form Referrals: Shalonda Richardson MD [ [facility] STAFF PHYSICIAN] - 07/14/23 11:20 am Esther Verma [Primary Care Provider] - 06/23/23 9:45 am Activity:: Activity as Tolerated Equipment/Supplies:: No Equipment Needed Diet:: As Tolerated Discharge Orders Discharge Orders: Discharge Order (Routine); Ordered 06/21/23 Ordered By: Sophia Estrada DS: Summary Time Spent with Patient providing and/or coordinating discharge services: Greater than 30 minutes Status at Discharge Functional status at discharge: independent ambulation Overall status at discharge: patient is progressing back to baseline Mental Status: mental status grossly normal Speech and Movement: speech and movement normal Mood: congruent mood Affect: normal affect Exam Narrative Exam Narrative: General: Pleasant female who appears comfortable sitting up in a chair, A&Ox3, NAD HEENT: EOMI, MMM Cardiovascular: irregularly irregular rhythm, no m/r/g Lungs: CTAB anteriorly Gastrointestinal: soft, nontender, nondistended Extremities: trace edema BLEs Psych Mental Status: mental status grossly normal Speech and Movement: speech and movement normal Mood: congruent mood Affect: normal affect DS: Data Vitals/I&O Vitals and I&O: Vital Signs Temperature 36.6 C 06/21/23 11:39 Temperature Source Tympanic 06/21/23 11:39 Pulse 68 06/21/23 11:39 Pulse Rhythm Irregular 06/21/23 07:37 Pulse 91 H 06/19/23 18:09 Respiratory Rate 18 06/21/23 11:39 Respiratory Effort Short of Breath 06/21/23 07:37 Respiratory Depth Normal 06/21/23 07:37 Respiratory Pattern Normal 06/21/23 07:37 Blood Pressure 157/95 H 06/21/23 11:39 Blood Pressure Mean 76 06/19/23 18:09 Blood Pressure Position Supine 06/19/23 16:11 Pulse Oximetry 95 06/21/23 11:39 Oxygen Delivery Method Room Air 06/21/23 11:39 Oxygen Flow Rate 0 06/21/23 11:39 Pain Level 0 06/21/23 11:39 Comment Nurse notified about BP. 06/21/23 11:39 Intake & Output 06/20/23 06/21/23 06/21/23 23:59 11:59 23:59 Intake Total 720 / 720 Balance 720 / 720 Weight 86.228 kg Intake: Oral 720 / 720 Other: Urine Appearance Clear Comment Independently uses the bathroom, uses brief for dribbling. Independently uses the bathroom, she stated that she voided. Stool Characteristics Formed Voiding Methods Toilet Toilet Data Completed and Pending Completed studies during hospitalization [Text1]: CXR 06/19/23: No acute pulmonary findings on this single AP portable view of the chest. CXR 06/19/23: No acute pulmonary findings on this single AP portable view of the chest. Sternotomy wires. Mild cardiomegaly. Echo: Mild concentric left ventricular hypertrophy. Ejection fraction is 55%. No segmental wall motion abnormalities are identified. Patient is in atrial fibrillation with a borderline rate and huzo-[id number] variation Normal right ventricular size and systolic function Left atrium is moderately enlarged. Right atrium is mildly enlarged Aortic valve is sclerotic without stenosis or regurgitation Normal mitral valve with mild regurgitation Normal tricuspid valve with moderate regurgitation. Estimated right ventricular systolic pressure is 39 mmHg Mildly dilated ascending aorta 3.56 cm Labs on day of discharge: Labs from last 24 hours 06/21/23 06/20/23 06:38 13:15 Sodium 142 Potassium 3.8 Chloride 104 Carbon Dioxide 30.4 Anion Gap 7.6 BUN 23 H Creatinine 1.0 Est GFR (CKD-EPI 2020) 59.86 Glucose 181 H Calcium 9.6 Magnesium 2.0 Troponin I < 50 PFSH All Active Problems (Updated 06/20/23 @ 13:28 by Shalonda Richardson MD) URI (upper respiratory infection) (Acute) Atrial fibrillation with rapid ventricular response (Acute) Tachycardia (Acute) COPD (chronic obstructive pulmonary disease) (Chronic) Atrial fibrillation (Chronic 04/29/14) Hypertension (Chronic) CAD (coronary artery disease) (Chronic) a. drug eluting stents Obesity (Chronic) BMI 33.0-33.9,adult (Chronic) Osteoarthritis (Chronic) H/O carpal tunnel syndrome (Chronic) Chronic low back pain (Chronic) H/O hypercalcemia (Chronic) H/O hyperparathyroidism (Chronic) a. Surgery to remove adenomas Osteopenia (Chronic) Psoriasis (Chronic) Elevated hematocrit (Chronic) Elevated hemoglobin (Chronic) Impaired fasting glucose (Chronic) Metabolic syndrome (Chronic) a. triglycerides greater than 300 and HDL less than 30 Hypertensive CKD (chronic kidney disease) (Chronic) A. probably stage 1 or 2 B. baseline creatinine 1.1 to 1.2 Sepsis (Acute) Prediabetes (Acute) Erythrocytosis (Chronic) Abnormal LFTs (Acute) Hypomagnesemia (Acute) Acute CHF (Acute) Discharge planning issues (Acute) DVT prophylaxis (Acute) Moderate pulmonary arterial systolic hypertension (Chronic) Acute renal insufficiency (Acute) Post-menopausal bleeding (Acute) Chronic atrial fibrillation with rapid ventricular response (Acute) Pneumonia (Acute) Acute kidney injury superimposed on chronic kidney disease (Acute) Peripheral neuropathy (Acute) Lung nodule (Acute) CHF (congestive heart failure) (Chronic) Exertional shortness of breath (Acute) Diabetes mellitus (Chronic) Fatigue (Acute) Increased sputum production (Acute) Snoring (Acute) Seasonal allergies (Acute) Hyperlipidemia (Acute) Skin lesion (Acute) Emphysema lung (Acute) Thyroid nodule (Acute) Medical History (Updated 06/20/23 @ 13:28 by Shalonda Richardson MD) Degenerative joint disease of right hip Cataracts, bilateral Trigger finger, right index finger Rosacea Leg pain, right Loss of balance Hyperparathyroidism Polycythemia vera CKD (chronic kidney disease) Pulmonary hypertension Muscle spasm Rhinitis PONV (postoperative nausea and vomiting) Acute bronchitis Surgical History H/O benign neoplasm resected Hx of cardiac cath 2 stents H/O parathyroidectomy s/p 2 stents Family History Other Heart disease Social History Smoking/Tobacco Use Status: Former Tobacco Use Quit Date: 07/18/06 Tobacco: How many years used: 30 Smoking risk assessment performed?: Yes Alcohol Intake: never Drug use: Never Substance use type: does not use Housing: house What type of physical activity do you participate in: none Do you feel safe at home: Yes Additional Social history: lives alone. Time Spent with Patient Time Spent with Patient: 45-69 minutes Time was spent: preparing to see the patient(eg.review tests), obtaining and/or reviewing separately otained hiistory, ordering medications,tests, procedures, referring, communicating with other health critical care physician assistant, indepentently interpreting results, counseling the patient and care coordination
--- NOTE | 2023-06-21 14:27 | CHAPLAIN ---
Edwige said she expects to be discharged today. She came in over the weekend with pain in her shoulder, thinking it might be cardiac related. She was monitored for AFib, which she said she's been dealing with for a while. Edwige lives alone. 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 Her son and daughter and very supportive and Edwige has many friends as well. I offered a prayer with Edwige before she left.
--- NOTE | 2023-06-21 16:44 | PDOC.CMDIS ---
Date of service: 06/21/23 Time of Service: 16:44 LACE Index Scoring Tool Questions: Length of Stay (in days): 2 Was the patient admitted via the E.D.?: Yes E.D. Visits: 0 Answers: Total Score: 5 Risk of Readmission: Low Risk Care Management Discharge Plan Reason for Hospitalization: Rapid Afib Discharge Plan: Edwige will discharge home with no new services. She will transport with family and follow up with her PCP and discharge plan of care. Patient/Family Education Needs: Review discharge instructions, discuss Ask Me Three.
== END 2023-06-21 14:29 | disposition home or self-care (01) | DRG 309 ==
LOC: ER 08:41 → ICU 09:04 → MS 18:32
PROVIDERS: Emergency Medicine Emergency Medical Services; Nurse Practitioner Acute Care; Admitting Provider Internal Medicine; Emergency Provider Student in an Organized Health Care Education/Training Program; PCP Nurse Practitioner Family; Visit Provider Internal Medicine
DX: I48.21 Permanent atrial fibrillation; I13.0 Hypertensive heart and chronic kidney disease with heart failure and stage 1 through stage 4 chronic kidney disease, or unspecified chronic kidney disease; I50.30 Unspecified diastolic (congestive) heart failure; J44.0 Chronic obstructive pulmonary disease with (acute) lower respiratory infection; I25.118 Atherosclerotic heart disease of native coronary artery with other forms of angina pectoris; I47.20 Ventricular tachycardia, unspecified; J20.9 Acute bronchitis, unspecified; I25.2 Old myocardial infarction; Z66 Do not resuscitate; Z79.4 Long term (current) use of insulin; Z79.01 Long term (current) use of anticoagulants; Z79.82 Long term (current) use of aspirin; Z79.85 Long-term (current) use of injectable non-insulin antidiabetic drugs; I27.20 Pulmonary hypertension, unspecified; G47.33 Obstructive sleep apnea (adult) (pediatric); C73 Malignant neoplasm of thyroid gland; Z85.118 Personal history of other malignant neoplasm of bronchus and lung; E66.9 Obesity, unspecified; M54.50 Low back pain, unspecified; G89.29 Other chronic pain; M85.80 Other specified disorders of bone density and structure, unspecified site; L40.9 Psoriasis, unspecified; E88.810 Metabolic syndrome; N18.2 Chronic kidney disease, stage 2 (mild); D75.1 Secondary polycythemia; E83.42 Hypomagnesemia; E11.22 Type 2 diabetes mellitus with diabetic chronic kidney disease; E11.42 Type 2 diabetes mellitus with diabetic polyneuropathy; E78.5 Hyperlipidemia, unspecified; Z95.5 Presence of coronary angioplasty implant and graft; E89.2 Postprocedural hypoparathyroidism; Z87.891 Personal history of nicotine dependence
CPT/HCPCS: 00123; 36410; 36415; 80048; 80053; 84145; 87637; 93005; 93306; 94640; 96365; 96375; 99223; 99285; 71045; 83735; 83880; 84439; 84443; 84484; 85025; 93010; 94664; 94667; 94668; 99232; 99233; 99239

== ENCOUNTER → 2023-06-20 10:52 | Outpatient (BNVA) | payer MEDICARE, SELFPAY | PROVIDERS: PCP Nurse Practitioner Family; Referring Provider Nurse Practitioner Family; Visit Provider Internal Medicine Cardiovascular Disease ==

== ENCOUNTER 2023-07-13 16:00 | Outpatient (CLI) | payer MEDICARE, SELFPAY ==
[2023-07-13 16:58] LABS: D-Dimer 832 ng/mlFEU (<500)
== END 2023-07-13 16:01 | disposition home or self-care (01) ==
LOC: LBO 16:01
PROVIDERS: PCP Nurse Practitioner Family; Visit Provider Nurse Practitioner Family
DX: R60.0 Localized edema (principal)
CPT/HCPCS: 36415; 85379

== ENCOUNTER → 2023-07-14 00:22 | Outpatient (CLI) | payer MEDICARE, SELFPAY ==
--- NOTE | 2023-07-14 | DI.US_ITS ---
Exam(s) US LOWER EXTREMITY VENOUS RT EXAM: US LOWER EXTREMITY VENOUS RT CLINICAL HISTORY: RT LOWER LIMB EDEMA,R60.0. TECHNIQUE: Lower extremity venous ultrasound performed using grayscale, color-flow, and spectral Do ppler analysis. COMPARISON: No exams were available for comparison FINDINGS: The common femoral, femoral and popliteal veins demonstrate normal compressibility, augmentation, and color Doppler. The posterior tibial veins are patent. No saphenous vein thrombosis or other superfi cial venous thrombosis is seen. No hematoma or Alejandra's cyst is seen. Mild edema lower leg. IMPRESSION: No evidence of DVT. DATA REPOSITORY:
== END ==
PROVIDERS: PCP Nurse Practitioner Family; Visit Provider Nurse Practitioner Family
DX: R60.0 Localized edema (principal)
CPT/HCPCS: 93971

== ENCOUNTER → 2023-07-25 01:59 | Outpatient (CLI) | payer MEDICARE, SELFPAY ==
--- NOTE | 2023-07-25 09:20 | DI.MAMMO_ITS ---
Exam(s) MAMMO DIAGNOSTIC BI EXAM: MAMMO DIAGNOSTIC BI CLINICAL HISTORY: DIAGNOSTIC,NEW RT BREAST PAIN. TECHNIQUE: Craniocaudal and mediolateral oblique Full Field Digital Mammography views with Computer Aided Diagnosis followed by Tomosynthesis. COMPARISON: Comparison is made with prior examinations. FINDINGS: Mammography/Tomosynthesis: Masses/Architectural Distortion: None seen. Microcalcifictions: No suspicious pleomorphic-type are seen. Skin Thickening/Nipple Retraction: None. IMPRESSION: 1. No evidence of malignancy is noted. 2. Unless there is more urgent need, follow-up screening mammography is recommended, as per [place] [employer] guidelines. 3. The findings were discussed with the patient on the date of the examination. BI-RADS Category 1 - Negative Breast Density - Category B - Scattered areas of fibroglandular density Breast density Category C or D implies that the patient has dense breast tissue. Dense breast tissue can make it harder to find cancer on a mammogram. Dense breast tissue is also associated with an incr eased risk of breast cancer. This information about the result of the mammogram report was provided to the patient to raise their awareness. Use this report when you speak with the patient about their risks for breast cancer, which includes their family history. At that time, you may recommend additional screening tests (Ultrasoun d or MRI) as these tests may add significant information. A negative radiographic report should not delay biopsy if a dominant or clinically suspicious mass is present. Up to ten percent of cancers are not identified on mammography. A negative report may reinforce clinical impression. Adenosis and dense breasts may obscure an underlying neoplasm. False positive reports average 6 to 10%. Patient will receive a letter notifying them of these results.
== END ==
PROVIDERS: PCP Nurse Practitioner Family; Visit Provider Nurse Practitioner Family
DX: Z12.31 Encounter for screening mammogram for malignant neoplasm of breast (principal); N64.4 Mastodynia
CPT/HCPCS: 77062; 77066; G0279

== ENCOUNTER 2024-01-11 22:39 | Inpatient (IN) | payer MEDICARE, SELFPAY ==
[2024-01-11] VITALS (11 sets, daily range): BP systolic 145–173; BP diastolic 69–127; PULSE 66–169; RESP 16–27; TEMP 36.4; O2SAT 88–91
--- NOTE | 2024-01-11 22:45 | DI.RAD_ITS ---
Exam(s) XR PORTABLE CHEST AP EXAM: XR PORTABLE CHEST AP CLINICAL HISTORY: sob, htn, afib TECHNIQUE: 2D digital imaging was performed of the chest. One image was obtained. An AP view was ob tained. COMPARISON: CR XR CHEST 2V PA LATERAL from 01/01/2019 CR,XR XR PORTABLE CHEST AP from 06/19/2023 CR,XR XR PORTABLE CHEST AP from 06/19/2023 FINDINGS: MEDIASTINUM: Normal. HEART: Mild cardiomegaly. PULMONARY VASCULATURE: There is pulmonary venous congestion. LUNGS: No focal consolidating infiltrates. PLEURAL SPACE: No pleural effusion or pneumothorax. BONE:Within normal limits for the patient's age. Sternal wires are in place. OTHER FINDINGS:Normal. IMPRESSION: Cardiomegaly and pulmonary venous congestion. This can be seen with fluid overload. DATA REPOSITORY: RADIATION DOSE DELIVERED:
--- NOTE | 2024-01-11 22:45 | RT.EKG_ITS ---
APPROVED REPORT Exam: Resting ECG Reason for Exam: CHEST PAIN Patient Location: E HR:179 bpm ECG Measurements Heart Rate 179 AXIS DC [id number] P [id number] QRSd 79 QRS 82 QT 273 T -74 QTc 473 Conclusion Atrial fibrillation with rapid V-rate...A-rate 359 Anterior infarct, old...Q >40mS, abnormal ST-T, V2-V5 afib rvr, normal axis
--- NOTE | 2024-01-11 22:53 | ED.GENADUL_ITS ---
Discharge Plan Disposition Patient Disposition: Admit to [facility] Condition: Stable Discharge Details Clinical Impression: CHF (congestive heart failure), Atrial fibrillation with rapid ventricular response Primary Care Provider: Esther Verma ED Provider: Lester Monsivais Home Meds and New Rx's Prescriptions: No Action aspirin [Adult Aspirin Regimen] 81 mg tablet,delayed release (DR/EC) 81 mg PO DAILY Qty: 90 0RF metoprolol succinate 100 mg tablet extended release 24 hr 100 mg PO DAILY Qty: 90 6RF furosemide [Lasix] 40 mg tablet 60 mg PO DAILY Victoza 3-Abdulaziz 0.6 mg/0.1 mL (18 mg/3 mL) pen injector 0.6 mg subcut HS Eliquis 5 MG tablet 5 mg PO BID Qty: 60 montelukast 10 mg tablet 10 mg PO HS betamethasone valerate 0.1 % ointment 1 applic topical DAILY PRN nitroglycerin 0.4 MG tablet, sublingual 0.4 mg Sublingual PER PROTOCOL Rx Instructions: needs script renewed cholecalciferol (vitamin D3) 1,000 UNITS tablet 1,000 units PO DAILY calcium carbonate 430 mg calcium (1,000 mg) Tablet,Chewable 1,000 mg PO DAILY lisinopril 10 mg tablet 10 mg PO DAILY Spiriva Respimat 1.25 mcg/actuation mist 2 spray INHALATION DAILY metoprolol succinate 50 mg tablet extended release 24 hr 50 mg PO DAILY Patient Comments: TAKE ONE TABLET BY MOUTH EVERY DAY with 100 mg tab for total dose = 150 mg Novolin N FlexPen 100 unit/mL (3 mL) insulin pen 24 unit SUBCUT DAILY Patient Comments: INJECT 24 UNITS UNDER THE SKIN ONCE DAILY guaifenesin [Mucus Relief ER] 600 mg Tablet Extended Release 12hr 600 mg PO BID PRN PRN (Reason: cough) Qty: 30 0RF diltiazem HCl 240 mg capsule,extended release 24hr 240 mg PO DAILY Qty: 30 0RF diltiazem HCl 120 mg capsule,extended release 24 hr 120 mg PO DAILY Patient Comments: TAKE ONE CAPSULE BY MOUTH EVERY DAY (DME) pen needle, diabetic [BD Ultra-Fine Short Pen Needle] 31 gauge x 5/16 needle MISCELLANEOUS Patient Comments: USE 1 NEEDLE UNDER THE SKIN TWO TIMES A DAY DIRECTED duloxetine 30 mg capsule,delayed release(DR/EC) 30 mg PO DAILY Patient Comments: TAKE ONE CAPSULE BY MOUTH EVERY DAY HPI General Date/Time Provider Initiated Documentation: 01/11/24 22:51 . HPI Narrative: 73-year-old female history of A-fib CAD CHF COPD presents with shortness of breath and cough over the last several hours associated with some nausea Related Data Home Medications Medication Instructions Recorded Confirmed nitroglycerin 0.4 mg sublingual 0.4 mg sublingual PER PROTOCOL 11/29/12 01/11/24 tablet cholecalciferol (vitamin D3) 25 1,000 units PO DAILY 09/26/13 01/11/24 mcg (1,000 unit) tablet apixaban 5 mg tablet (Eliquis) 5 mg PO BID #60 tab-caps 10/21/16 01/11/24 calcium carbonate 1,000 mg PO DAILY 12/21/18 01/11/24 aspirin 81 mg tablet,delayed 81 mg PO DAILY #90 tabs 08/06/19 01/11/24 release (Adult Aspirin Regimen) metoprolol succinate 100 mg 100 mg PO DAILY #90 tabs 09/11/19 01/11/24 tablet,extended release 24 hr montelukast 10 mg tablet 10 mg PO HS 05/19/20 01/11/24 betamethasone valerate 0.1 % 1 applic topical DAILY PRN 03/03/22 01/11/24 topical ointment liraglutide 0.6 mg/0.1 mL (18 mg/3 0.6 mg subcut HS 03/03/22 01/11/24 mL) subcutaneous pen injector (Victoza 3-Abdulaziz) furosemide 40 mg tablet (Lasix) 60 mg PO DAILY 05/20/22 01/11/24 lisinopril 10 mg tablet 10 mg PO DAILY 05/20/22 01/11/24 tiotropium bromide 1.25 2 spray inhalation DAILY 06/25/22 01/11/24 mcg/actuation mist for inhalation (Spiriva Respimat) insulin NPH isoph U-100 human 100 24 unit subcut DAILY 06/19/23 01/11/24 unit/mL (3 mL) subcutaneous pen (Novolin N FlexPen) metoprolol succinate 50 mg 50 mg PO DAILY 06/19/23 01/11/24 tablet,extended release 24 hr diltiazem HCl 240 mg 240 mg PO DAILY #30 caps 06/21/23 01/11/24 capsule,extended release 24 hr guaifenesin 600 mg tablet, 600 mg PO BID PRN PRN cough #30 06/21/23 01/11/24 extended release 12 hr (Mucus tabs Relief ER) diltiazem HCl 120 mg capsule,24 120 mg PO DAILY 01/11/24 01/11/24 hr,extended release duloxetine 30 mg capsule,delayed 30 mg PO DAILY 01/11/24 01/11/24 release pen needle, diabetic 31 gauge x 01/11/24 01/11/2411/30 (BD Ultra-Fine Short Pen Needle) Previous Rx's Medication Instructions Recorded aspirin 81 mg tablet,delayed 81 mg PO DAILY #90 tabs 08/06/19 release (Adult Aspirin Regimen) metoprolol succinate 100 mg 100 mg PO DAILY #90 tabs 09/11/19 tablet,extended release 24 hr diltiazem HCl 240 mg 240 mg PO DAILY #30 caps 06/21/23 capsule,extended release 24 hr guaifenesin 600 mg tablet, 600 mg PO BID PRN PRN cough #30 06/21/23 extended release 12 hr (Mucus tabs Relief ER) Allergies Allergy/AdvReac Type Severity Reaction Status Date / Time clopidogrel [From Plavix] Allergy Unknown Unknown Verified 01/11/24 22:51 iohexol [From Omnipaque 140] Allergy Skin Rash Verified 01/11/24 22:51 pseudoephedrine Allergy Unknown Verified 01/11/24 22:51 [From Sudafed] Sulfa (Sulfonamide Allergy Unknown Verified 01/11/24 22:51 Antibiotics) erythromycin base AdvReac GI Verified 01/11/24 22:51 [Erythromycin Base] metal Allergy Intermediate Skin Rash Uncoded 01/11/24 22:51 General Stated Complaint: SOB JOSE DE JESUS: 3 Review of Systems Narrative: Review of Systems Constitutional: negative Eyes: negative ENT: negative Cardiovascular: negative Respiratory: Shortness of breath, cough Gastrointestinal: negative : negative Musculoskeletal: negative Skin: negative Neurologic: negative Psych: negative Exam Narrative Exam Narrative: Physical Examination General: alert, awake, cooperative, resting comfortably, no acute distress HEENT: normocephalic, atraumatic; PERRL, EOM intact, conjunctiva normal; no nasal discharge; moist mucous membranes, oral and pharyngeal mucosa normal, tolerating secretions Neck: supple, trachea midline; full ROM Chest: normal to inspection Respiratory: normal respiratory effort, speaking in full sentences, clear to auscultation, no wheezing, rales or rhonchi Cardiac: Tachycardia, irregularly irregular, S1S2 intact, no murmurs rubs or gallops GI: abdomen soft, non-tender, non-distended; no palpable mass or hepatosplenomegaly Skin: no lesions, rashes or trauma appreciated Neuro: AAOx3, normal speech, moving all extremities Extremities: No peripheral edema Psych: Appropriate mood and affect Course Vital Signs Vital signs: Vital Signs Temperature 36.4 C 01/11/24 22:43 Pulse 169 H 01/11/24 22:43 Respiratory Rate 17 01/11/24 22:43 Blood Pressure 173/127 H 01/11/24 22:43 Temperature 36.4 C 01/11/24 22:43 Temperature Source Temporal Artery Scan 01/11/24 22:43 Pulse 169 H 01/11/24 22:43 Respiratory Rate 17 01/11/24 22:43 Respiratory Effort Non-Labored 01/11/24 22:49 Respiratory Depth Normal 01/11/24 22:49 Respiratory Pattern Normal 01/11/24 22:49 Blood Pressure 173/127 H 01/11/24 22:43 Oxygen Delivery Method Room Air 01/11/24 22:43 Oxygen Flow Rate 0 01/11/24 22:43 Pain Level 0 01/11/24 22:43 Medical Decision Making 73-year-old female history of A-fib on Eliquis, history of coronary disease, CHF, COPD presents with shortness of breath fatigue and nausea no vomiting no abdominal pain no chest pain, denies history of thromboembolic disease, patient alert oriented interactive, no to be tachycardic A-fib RVR and hypertense on arrival high clinical suspicion for CHF exacerbation in the setting of A-fib RVR, muscles consider ACS versus electrolyte derangement, lower suspicion for PE or aortic pathology, will attempt rate control with diltiazem will also help with blood pressure, will also administer Lasix as patient does have evidence of pulmonary edema on examination with B-lines on bedside ultrasound and some decrease lung sounds at the base bilaterally; disposition pending reassessment and results 23: 15 symptomatology improving after dose of diltiazem, patient's heart rate now in the 120s still A-fib RVR, blood pressures now 160s over 70s. Breathing more comfortably. Beginning to diurese. Evidence of pulmonary congestion on chest x-ray consistent with CHF. Awaiting labs and reassessment for disposition 23: 44 intermittent oxygen saturations in the high 80s 88-89, consistently 90-91 relative hypoxia from baseline, given repeat of diltiazem will likely be needed shortly given recurrent heart rate in the 150s to 160s A-fib RVR as well as relative hypoxia patient would benefit from inpatient diuresis and close telemetry monitoring. Of note patient was recently decreased from diltiazem 240 to diltiazem 120 mg/day within the last couple of months Quality:SDOH Health Related Social Needs: No Data to Display PFSH All Active Problems (Updated 01/11/24 @ 23:50 by Lester Monsivais MD) Atrial fibrillation with rapid ventricular response (Acute) CHF (congestive heart failure) (Chronic) Edema of right lower leg (Acute) URI (upper respiratory infection) (Acute) Atrial fibrillation with rapid ventricular response (Acute) Tachycardia (Acute) COPD (chronic obstructive pulmonary disease) (Chronic) Atrial fibrillation (Chronic 04/29/14) Hypertension (Chronic) CAD (coronary artery disease) (Chronic) a. drug eluting stents Obesity (Chronic) BMI 33.0-33.9,adult (Chronic) Osteoarthritis (Chronic) H/O carpal tunnel syndrome (Chronic) Chronic low back pain (Chronic) H/O hypercalcemia (Chronic) H/O hyperparathyroidism (Chronic) a. Surgery to remove adenomas Osteopenia (Chronic) Psoriasis (Chronic) Elevated hematocrit (Chronic) Elevated hemoglobin (Chronic) Impaired fasting glucose (Chronic) Metabolic syndrome (Chronic) a. triglycerides greater than 300 and HDL less than 30 Hypertensive CKD (chronic kidney disease) (Chronic) A. probably stage 1 or 2 B. baseline creatinine 1.1 to 1.2 Sepsis (Acute) Prediabetes (Acute) Erythrocytosis (Chronic) Abnormal LFTs (Acute) Hypomagnesemia (Acute) Acute CHF (Acute) Moderate pulmonary arterial systolic hypertension (Chronic) Acute renal insufficiency (Acute) Post-menopausal bleeding (Acute) Chronic atrial fibrillation with rapid ventricular response (Acute) Pneumonia (Acute) Acute kidney injury superimposed on chronic kidney disease (Acute) Peripheral neuropathy (Acute) Lung nodule (Acute) CHF (congestive heart failure) (Chronic) Exertional shortness of breath (Acute) Diabetes mellitus (Chronic) Fatigue (Acute) Increased sputum production (Acute) Snoring (Acute) Seasonal allergies (Acute) Hyperlipidemia (Acute) Skin lesion (Acute) Emphysema lung (Acute) Thyroid nodule (Acute) Medical History Degenerative joint disease of right hip Cataracts, bilateral Trigger finger, right index finger Rosacea Leg pain, right Loss of balance Hyperparathyroidism Polycythemia vera CKD (chronic kidney disease) Pulmonary hypertension Muscle spasm Rhinitis PONV (postoperative nausea and vomiting) Acute bronchitis Surgical History H/O benign neoplasm resected Hx of cardiac cath 2 stents H/O parathyroidectomy s/p 2 stents Family History Other Heart disease Social History Smoking/Tobacco Use Status: Former Tobacco Use Quit Date: 07/18/06 Tobacco: How many years used: 30 Smoking risk assessment performed?: Yes Alcohol Intake: never Drug use: Never Substance use type: does not use Housing: house What type of physical activity do you participate in: none Do you feel safe at home: Yes Additional Social history: lives alone.
[2024-01-11] MEDS: dilTIAZem 25 MG/5 ML VIAL 20 MG IVP ×2 (22:56→23:46)
[2024-01-11] MEDS: Aspirin 81 MG CHEW 324 MG CH (22:57)
[2024-01-11] MEDS: Furosemide 100 MG/10 ML VIAL 80 MG IVP (23:00)
[2024-01-11 23:17] LABS: INR 1.2 (0.9-1.1); Prothrombin Time 11.6 sec (9.1-11.1)
[2024-01-11 23:27] LABS: ALT 26 U/L (14-59); AST 24 U/L (15-37); Albumin 3.4 g/dL (3.4-5.0); Alkaline Phosphatase 90 U/L (46-116); Anion Gap 10.3 mmol/L (3-11); BUN 19 mg/dL (7-18); Bilirubin, Total 1.66 mg/dL (0.2-1.0); CO2 30.7 mmol/L (21.0-32.0); CREATININE 1.3 mg/dL (0.55-1.02); Chloride 101 mmol/L (98-107); Estimated GFR 43.42 (mL/min/1.73m2); Glucose 135 mg/dL (74-106); Magnesium 1.9 mg/dL (1.8-2.4); NT-proBNP 2893 pg/mL (<300); Potassium 3.6 mmol/L (3.5-5.1); Sodium 142 mmol/L (136-145); TSH (W/Ref FT4) 1.53 uIU/mL (0.36-3.74); Total Protein 7.4 g/dL (6.4-8.2); Troponin I < 50 ng/L (< or =60)
[2024-01-11 23:53] LABS: Bilirubin Negative (Negative); Blood Trace-intact (Negative); Clarity Clear (Clear); Glucose Negative (Negative); Ketones Negative (Negative); Leukocyte Esterase Negative (Negative); Nitrite Negative (Negative); Urobilinogen 0.2 mg/dL (Up to 0.2)
[2024-01-12] VITALS (25 sets, daily range): BP systolic 96–170; BP diastolic 54–105; PULSE 56–130; RESP 16–42; TEMP 36.2–37.4; O2SAT 85–100
[2024-01-12] LABS: Bacteria Rare HPF (Negative); C & S Indicated? No; Casts Negative LPF (Negative); Crystals Negative HPF (Negative); Epithelial Cells Rare HPF (Negative); Mucus Negative (Negative); RBC 0-2 HPF (0-2); WBC Negative HPF (0-5)
--- NOTE | 2024-01-12 00:32 | W.PM.HP.N ---
Date of service: 01/12/24 Time of Service: 00:32 Assessment and Plan Assessment and plan (1) Atrial fibrillation with rapid ventricular response: Start date: 01/11/24 Status: Acute Assessment and plan: This is a 73-year-old lady with exacerbation of CHF currently on Lasix orally but also with recent adjustment of her diltiazem and presenting with atrial fibrillation with rapid ventricular response which responded to IV diltiazem boluses with better heart rate control having her pulse in the 170 range now just above 100. She denies any chest pain and had negative troponins will be trended. She does have a history of CAD. She is overweight currently with most of her weight gain in the last year. She will continue on increased oral dose of the diltiazem and metoprolol once heart rate control and blood pressure response. Trend troponins continue cardiac monitoring. She is a DNR/DNI. (2) CHF (congestive heart failure): Start date: 01/11/24 Status: Acute Assessment and plan: Lasix IV at 80 mg twice daily and convert to oral diuretic once patient is more comfortable. Update echocardiogram. Monitor lab as we diurese replacing potassium and magnesium as needed. She already has a slightly low magnesium with oral magnesium to be initiated. Qualifiers: Heart failure chronicity: acute on chronic Heart failure type: combined systolic and diastolic Qualified Code(s): I50.43 - Acute on chronic combined systolic (congestive) and diastolic (congestive) heart failure (3) Hypomagnesemia: Status: Acute Assessment and plan: Slightly low magnesium the patient returns for magnesium supplement. Trend while on increased diuresis. (4) Hypertension: Status: Chronic Assessment and plan: Slightly exacerbated with patient to have adjustment of metoprolol and diltiazem for rate control and blood pressure control. Continue lisinopril same dose. Qualifiers: Hypertension type: primary hypertension Qualified Code(s): I10 - Essential (primary) hypertension (5) Diabetes mellitus: Status: Chronic Assessment and plan: Glucometer measurements before meals and at bedtime with corrective insulin coverage while hospitalized. Hold outpatient medical therapy. 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 Qualifiers: Chronic kidney disease stage: stage 3 (moderate) Chronic kidney disease stage 3 subtype: stage 3b (GFR 30-44) Qualified Code(s): N18.32 - Chronic kidney disease, stage 3b (7) COPD (chronic obstructive pulmonary disease): Status: Chronic Assessment and plan: Continue outpatient inhaler therapy. There is element of emphysema. Patient was a previous smoker. Qualifiers: COPD type: emphysema Emphysema type: other Qualified Code(s): J43.8 - Other emphysema (8) CAD (coronary artery disease): Status: Chronic Assessment and plan: No evidence of exacerbation status postcardiac catheterization and stenting. Continue outpatient medical therapy along with Eliquis and aspirin. Nitroglycerin sublingually as needed the patient not having active chest pain with her exacerbation of CHF. She is a DNR/DNI. Qualifiers: Associated angina: unspecified whether angina present Coronary Disease-Associated Artery/Lesion type: [place] artery [place] vs. transplanted heart: [place] heart Qualified Code(s): I25.10 - Atherosclerotic heart disease of [place] coronary artery without angina pectoris History of Present Illness History of Present Illness Chief Complaint: Shortness of breath with nausea Narrative: This is a 73-year-old female patient who presented to the ED with several days increasing shortness of breath. She does have some associated nausea without vomiting. She denies any chest pain. Her troponin was negative and she was hypertensive with her tachycardia associated with atrial fibrillation which appear to be exacerbated. She is chronically on Eliquis for atrial fibrillation. Imaging did reveal exacerbation of CHF and BNP was elevated. She he was given IV diltiazem bolus x 2 with better heart rate control as well as blood pressure control. She does have mild hypoxemia and did respond to IV Lasix. After treatment the patient was more comfortable but was admitted for continued diuresis and monitoring of heart rate control on increased oral diltiazem XR which recently had been decreased in dosing after recent ingesting. She is also on metoprolol succinate. Metoprolol tartrate will be continued and given in split doses every 8 hours watching for heart rate and blood pressure control. Diltiazem will be given at 240 mg daily with split dosing every 6 hours her magnesium was slightly low and she will be supplemented. This has been a problem in the past. She also has diabetic which appears to be well-controlled. The patient denies any recent weight gain or peripheral edema but she does have peripheral neuropathy with leg pain tender. She is overweight gained about 60 pounds over the last several months but no significant weight gain over the last week. She is to see her business services analyst next week. Her last echocardiogram was months ago. The patient is DNR/DNI. Review of Systems Narrative: 13 point review of systems otherwise unrevealing or stable. PFSH All Active Problems (Updated 01/12/24 @ 00:53 by Han Davis) Atrial fibrillation with rapid ventricular response (Acute) CHF (congestive heart failure) (Acute) Edema of right lower leg (Acute) URI (upper respiratory infection) (Acute) Atrial fibrillation with rapid ventricular response (Acute) Tachycardia (Acute) COPD (chronic obstructive pulmonary disease) (Chronic) Atrial fibrillation (Chronic 04/29/14) Hypertension (Chronic) CAD (coronary artery disease) (Chronic) a. drug eluting stents Obesity (Chronic) BMI 33.0-33.9,adult (Chronic) Osteoarthritis (Chronic) H/O carpal tunnel syndrome (Chronic) Chronic low back pain (Chronic) H/O hypercalcemia (Chronic) H/O hyperparathyroidism (Chronic) a. Surgery to remove adenomas Osteopenia (Chronic) Psoriasis (Chronic) Elevated hematocrit (Chronic) Elevated hemoglobin (Chronic) Impaired fasting glucose (Chronic) Metabolic syndrome (Chronic) a. triglycerides greater than 300 and HDL less than 30 Hypertensive CKD (chronic kidney disease) (Chronic) A. probably stage 1 or 2 B. baseline creatinine 1.1 to 1.2 Sepsis (Acute) Prediabetes (Acute) Erythrocytosis (Chronic) Abnormal LFTs (Acute) Hypomagnesemia (Acute) Acute CHF (Acute) Moderate pulmonary arterial systolic hypertension (Chronic) Acute renal insufficiency (Acute) Post-menopausal bleeding (Acute) Chronic atrial fibrillation with rapid ventricular response (Acute) Pneumonia (Acute) Acute kidney injury superimposed on chronic kidney disease (Acute) Peripheral neuropathy (Acute) Lung nodule (Acute) CHF (congestive heart failure) (Chronic) Exertional shortness of breath (Acute) Diabetes mellitus (Chronic) Fatigue (Acute) Increased sputum production (Acute) Snoring (Acute) Seasonal allergies (Acute) Hyperlipidemia (Acute) Skin lesion (Acute) Emphysema lung (Acute) Thyroid nodule (Acute) Medical History Degenerative joint disease of right hip Cataracts, bilateral Trigger finger, right index finger Rosacea Leg pain, right Loss of balance Hyperparathyroidism Polycythemia vera CKD (chronic kidney disease) Pulmonary hypertension Muscle spasm Rhinitis PONV (postoperative nausea and vomiting) Acute bronchitis Surgical History H/O benign neoplasm resected Hx of cardiac cath 2 stents H/O parathyroidectomy s/p 2 stents Family History Other Heart disease Social History Smoking/Tobacco Use Status: Former Tobacco Use Quit Date: 07/18/06 Tobacco: How many years used: 30 Smoking risk assessment performed?: Yes Alcohol Intake: never Drug use: Never Substance use type: does not use Housing: house What type of physical activity do you participate in: none Do you feel safe at home: Yes Additional Social history: lives alone. Meds Allergies and Home Medications Allergies Allergy/AdvReac Type Severity Reaction Status Date / Time clopidogrel [From Plavix] Allergy Unknown Unknown Verified 01/11/24 22:51 iohexol [From Omnipaque 140] Allergy Skin Rash Verified 01/11/24 22:51 pseudoephedrine Allergy Unknown Verified 01/11/24 22:51 [From Sudafed] Sulfa (Sulfonamide Allergy Unknown Verified 01/11/24 22:51 Antibiotics) erythromycin base AdvReac GI Verified 01/11/24 22:51 [Erythromycin Base] metal Allergy Intermediate Skin Rash Uncoded 01/11/24 22:51 Home Medications Medication Instructions Recorded Confirmed Type nitroglycerin 0.4 mg sublingual 0.4 mg sublingual PER PROTOCOL 11/29/12 01/11/24 History tablet cholecalciferol (vitamin D3) 25 1,000 units PO DAILY 09/26/13 01/11/24 History mcg (1,000 unit) tablet apixaban 5 mg tablet (Eliquis) 5 mg PO BID #60 tab-caps 10/21/16 01/11/24 History calcium carbonate 1,000 mg PO DAILY 12/21/18 01/11/24 History aspirin 81 mg tablet,delayed 81 mg PO DAILY #90 tabs 08/06/19 01/11/24 Rx release (Adult Aspirin Regimen) metoprolol succinate 100 mg 100 mg PO DAILY #90 tabs 09/11/19 01/11/24 Rx tablet,extended release 24 hr montelukast 10 mg tablet 10 mg PO HS 05/19/20 01/11/24 History betamethasone valerate 0.1 % 1 applic topical DAILY PRN 03/03/22 01/11/24 History topical ointment liraglutide 0.6 mg/0.1 mL (18 mg/3 0.6 mg subcut HS 03/03/22 01/11/24 History mL) subcutaneous pen injector (Link_[employer]_ [employer] 3-Abdulaziz) furosemide 40 mg tablet (Lasix) 60 mg PO DAILY 05/20/22 01/11/24 History lisinopril 10 mg tablet 10 mg PO DAILY 05/20/22 01/11/24 History tiotropium bromide 1.25 2 spray inhalation DAILY 06/25/22 01/11/24 History mcg/actuation mist for inhalation (Spiriva Respimat) insulin NPH isoph U-100 human 100 24 unit subcut DAILY 06/19/23 01/11/24 History unit/mL (3 mL) subcutaneous pen (Novolin N FlexPen) metoprolol succinate 50 mg 50 mg PO DAILY 06/19/23 01/11/24 History tablet,extended release 24 hr diltiazem HCl 240 mg 240 mg PO DAILY #30 caps 06/21/23 01/11/24 Rx capsule,extended release 24 hr guaifenesin 600 mg tablet, 600 mg PO BID PRN PRN cough #30 06/21/23 01/11/24 Rx extended release 12 hr (Mucus tabs Relief ER) diltiazem HCl 120 mg capsule,24 120 mg PO DAILY 01/11/24 01/11/24 History hr,extended release duloxetine 30 mg capsule,delayed 30 mg PO DAILY 01/11/24 01/11/24 History release pen needle, diabetic 31 gauge x 01/11/24 01/11/24 History 516 (BD Ultra-Fine Short Pen Needle) Exam Narrative Exam Narrative: General: Patient appears appropriate, morbidly obese, alert and oriented x 3 and in no acute distress. HEENT: Normocephalic, eyes with pupils equal and reactive to light symmetrically, extraocular movement intact and sclera anicteric. Oropharynx with moist mucosa and fair dentition. Neck: Supple without JVD. Back: Kyphotic without CVA tenderness. Lungs: Clear to auscultation and percussion with slight decreased aeration at the bases. No focal rales or rhonchi. Bronchovesicular breath sounds diffusely. Heart: Irregular regular rhythm with normal rate. No appreciable murmur or gallop. Breast: Exam deferred. Abdomen: Obese contour, soft and nontender to palpation with no palpable hepatosplenomegaly. Bowel sounds positive all quadrants. No guarding or rebound. Genitalia/medical exam deferred. Extremities: Nonpitting edema ankles and feet with no cyanosis or clubbing. Patient does have tenderness to palpation over her legs with neuropathy. Peripheral pulses intact. Good capillary refill. Skin: Normal color, warm and dry. Neuro: Cranial nerves II through XII gross intact, no focal motor deficits. No tremor. Psych: Slightly anxious with normal mood. No abnormal thought processes. Remote and recent memory intact. Results Imaging Imaging Studies: Exam: XR Chest Exam date and time: 01/11/2024 11:09 PM Age: 73 years old Clinical indication: Other: SOB, HTN, afib TECHNIQUE: Imaging protocol: Radiologic exam of the chest. Views: 1 view. COMPARISON: CR XR PORTABLE CHEST AP 06/19/2023 11:10 AM FINDINGS: Lungs: No cortes airspace consolidation on portable imaging. Pleural spaces: No definite pleural effusion. No pneumothorax. Heart/Mediastinum: Moderate cardiomegaly and mild central vascular congestion are both slightly more pronounced. Bones/joints: Median sternotomy wires. IMPRESSION: Moderate cardiomegaly and mild central vascular congestion are both slightly more pronounced. Labs 01/12/24 05:35 01/11/24 23:00 Labs: Laboratory Results - last 24 hr 01/11/24 01/11/24 23:00 23:40 PT 11.6 H INR 1.2 H APTT 30.0 Sodium 142 Potassium 3.6 Chloride 101 Carbon Dioxide 30.7 Anion Gap 10.3 BUN 19 H Creatinine 1.3 H Est GFR (CKD-EPI 2020) 43.42 Glucose 135 H Calcium 9.0 Magnesium 1.9 Total Bilirubin 1.66 H AST 24 ALT 26 Alkaline Phosphatase 90 Troponin I < 50 NT-Pro-B Natriuret Pep 2893 H Total Protein 7.4 Albumin 3.4 TSH 1.53 Urine Color Yellow Urine Clarity Clear Urine pH 7.0 Ur Specific [place] 1.020 Urine Protein 100 H Urine Ketones Negative Urine Blood Trace-intact H Urine Nitrite Negative Urine Bilirubin Negative Urine Urobilinogen 0.2 Ur Leukocyte Esterase Negative Urine RBC 0-2 Urine WBC Negative Ur Epithelial Cells Rare Urine Crystals Negative Urine Bacteria Rare Urine Casts Negative Urine Mucus Negative Ur Culture Indicated? No Urine Glucose Negative Last Vital Signs Temp 36.4 C 01/11/24 22:43 Pulse 86 01/12/24 00:16 Resp 18 01/12/24 00:20 BP 170/81 H 01/12/24 00:16 Pulse Ox 94 01/12/24 00:20 Time Spent Time spent with Patient: >75 minutes Time was spent: preparing to see the patient(eg.review tests), obtaining and/or reviewing separately otained hiistory, ordering medications,tests, procedures, indepentently interpreting results, counseling the patient and care coordination
--- NOTE | 2024-01-12 00:35 | DI.VRAD_ITS ---
PROCEDURE INFORMATION: Exam: XR Chest Exam date and time: 01/11/2024 11:09 PM Age: 73 years old Clinical indication: Other: SOB, HTN, afib TECHNIQUE: Imaging protocol: Radiologic exam of the chest. Views: 1 view. COMPARISON: CR XR PORTABLE CHEST AP 06/19/2023 11:10 AM FINDINGS: Lungs: No cortes airspace consolidation on portable imaging. Pleural spaces: No definite pleural effusion. No pneumothorax. Heart/Mediastinum: Moderate cardiomegaly and mild central vascular congestion are both slightly more pronounced. Bones/joints: Median sternotomy wires. IMPRESSION: Moderate cardiomegaly and mild central vascular congestion are both slightly more pronounced. Dictated and Authenticated by: Haydee Avina MD. Ordering:PCHRISTOS Batista MD
--- NOTE | 2024-01-12 01:00 | W.PCEDHO ---
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 Pt states she is nauseous and states it's hard to breath. Denies CP, vomiting, urinary s/s. Hx of AFIB, COPD and CHF. UT, 2 stents. Pt takes Eliquis. Pt has a cough that she is 'unable to clear'. Pt able to speak in complete sentences. Medical / Surgical History (Last Reviewed 07/14/23 @ 11:56 by Julius Stark MD) Degenerative joint disease of right hip Cataracts, bilateral Trigger finger, right index finger Rosacea Leg pain, right Loss of balance Hyperparathyroidism Polycythemia vera CKD (chronic kidney disease) Pulmonary hypertension Muscle spasm Rhinitis PONV (postoperative nausea and vomiting) Acute bronchitis (Last Reviewed 07/14/23 @ 11:56 by Julius Stark MD) H/O benign neoplasm Hx of cardiac cath H/O parathyroidectomy Most Recent Vital Signs Temperature 36.4 C 01/11/24 22:43 Temperature Source Temporal Artery Scan 01/11/24 22:43 Pulse 99 H 01/12/24 00:46 Pulse 111 H 01/12/24 00:46 Respiratory Rate 20 01/12/24 00:46 Respiratory Effort Non-Labored 01/11/24 22:49 Respiratory Depth Normal 01/11/24 22:49 Respiratory Pattern Normal 01/11/24 22:49 Blood Pressure 102/54 L 01/12/24 00:46 Blood Pressure Mean 68 01/12/24 00:46 Pulse Oximetry 95 01/12/24 00:46 Oxygen Delivery Method Room Air 01/11/24 22:43 Oxygen Flow Rate 0 01/11/24 22:43 Pain Level 0 01/11/24 22:43 Allergies clopidogrel [From Plavix] Allergy (Unknown, Verified 01/11/24 22:51) Unknown Pt denies iohexol [From Omnipaque 140] Allergy (Verified 01/11/24 22:51) Skin Rash PURPLE RASH pseudoephedrine [From Sudafed] Allergy (Verified 01/11/24 22:51) Unknown Pt. states it makes me feel weird gives me nose bleeds Sulfa (Sulfonamide Antibiotics) Allergy (Verified 01/11/24 22:51) Unknown pt. can't remember reaction erythromycin base [Erythromycin Base] Adverse Reaction (Verified 01/11/24 22:51) GI metal Allergy (Intermediate, Uncoded 01/11/24 22:51) Skin Rash IV IV Catheter Type [Left Wrist] Saline Lock IV Catheter Gauge [Left Wrist] 18 Diet Orders Category Date Time Status Diabetes Consistent CHO/Heart Healthy [DIET] Nutrition 01/12/24 Breakfast Active Diagnostics 01/12/24 01/12/24 01/11/24 Range/Units 05:35 01:51 23:40 WBC Pending RBC Pending Hgb Pending Hct Pending MCV Pending MCH Pending MCHC Pending RDW Pending Plt Count Pending MPV Pending PT (9.1-11.1) sec INR (0.9-1.1) APTT (23.6-32.8) sec Sodium Pending (136-145) mmol/L Potassium Pending (3.5-5.1) mmol/L Chloride Pending (98-107) mmol/L Carbon Dioxide Pending (21.0-32.0) mmol/L Anion Gap Pending (3-11) mmol/L BUN Pending (7-18) mg/dL Creatinine Pending (0.55-1.02) mg/dL Est GFR (CKD-EPI 2020) Pending (mL/min/1.73m2) Glucose Pending (74-106) mg/dL Calcium Pending (8.5-10.1) mg/dL Magnesium Pending (1.8-2.4) mg/dL Total Bilirubin Pending (0.2-1.0) mg/dL AST Pending (15-37) U/L ALT Pending (14-59) U/L Alkaline Phosphatase Pending (46-116) U/L Troponin I Pending Pending (< or =60) ng/L NT-Pro-B Natriuret Pep (<300) pg/mL Total Protein Pending (6.4-8.2) g/dL Albumin Pending (3.4-5.0) g/dL TSH (0.36-3.74) uIU/mL Urine Color Yellow (Yellow) Urine Clarity Clear (Clear) Urine pH 7.0 (5-8) Ur Specific [place] 1.020 (1.005-1.025) Urine Protein 100 H (Neg-Trace) mg/dL Urine Ketones Negative (Negative) mg/dL Urine Blood Trace-intact H (Negative) Urine Nitrite Negative (Negative) Urine Bilirubin Negative (Negative) Urine Urobilinogen 0.2 (Up to 0.2) mg/dL Ur Leukocyte Esterase Negative (Negative) Urine RBC 0-2 (0-2) HPF Urine WBC Negative (0-5) HPF Ur Epithelial Cells Rare (Negative) HPF Urine Crystals Negative (Negative) HPF Urine Bacteria Rare (Negative) HPF Urine Casts Negative (Negative) LPF Urine Mucus Negative (Negative) Ur Culture Indicated? No Urine Glucose Negative (Negative) mg/dL 01/11/24 Range/Units 23:00 WBC RBC Hgb Hct MCV MCH MCHC RDW Plt Count MPV PT 11.6 H (9.1-11.1) sec INR 1.2 H (0.9-1.1) APTT 30.0 (23.6-32.8) sec Sodium 142 (136-145) mmol/L Potassium 3.6 (3.5-5.1) mmol/L Chloride 101 (98-107) mmol/L Carbon Dioxide 30.7 (21.0-32.0) mmol/L Anion Gap 10.3 (3-11) mmol/L BUN 19 H (7-18) mg/dL Creatinine 1.3 H (0.55-1.02) mg/dL Est GFR (CKD-EPI 2020) 43.42 (mL/min/1.73m2) Glucose 135 H (74-106) mg/dL Calcium 9.0 (8.5-10.1) mg/dL Magnesium 1.9 (1.8-2.4) mg/dL Total Bilirubin 1.66 H (0.2-1.0) mg/dL AST 24 (15-37) U/L ALT 26 (14-59) U/L Alkaline Phosphatase 90 (46-116) U/L Troponin I < 50 (< or =60) ng/L NT-Pro-B Natriuret Pep 2893 H (<300) pg/mL Total Protein 7.4 (6.4-8.2) g/dL Albumin 3.4 (3.4-5.0) g/dL TSH 1.53 (0.36-3.74) uIU/mL Urine Color (Yellow) Urine Clarity (Clear) Urine pH (5-8) Ur Specific [place] (1.005-1.025) Urine Protein (Neg-Trace) mg/dL Urine Ketones (Negative) mg/dL Urine Blood (Negative) Urine Nitrite (Negative) Urine Bilirubin (Negative) Urine Urobilinogen (Up to 0.2) mg/dL Ur Leukocyte Esterase (Negative) Urine RBC (0-2) HPF Urine WBC (0-5) HPF Ur Epithelial Cells (Negative) HPF Urine Crystals (Negative) HPF Urine Bacteria (Negative) HPF Urine Casts (Negative) LPF Urine Mucus (Negative) Ur Culture Indicated? Urine Glucose (Negative) mg/dL Intake and Output - 24 Hour Total 01/11/24 22:39 thru 01/12/24 00:48 Output Total 900 Balance -900 Weight 87.543 kg Output: Urine 900 Falls Risk Assessment History of Falls No History 01/11/24 22:49 Contributing Factors No Factors 01/11/24 22:49 Ambulatory Aids Independent 01/11/24 22:49 Tubes/Lines None 01/11/24 22:49 Gait Evaluation No gait disturbance 01/11/24 22:49 Cognition No cognitive impairment 01/11/24 22:49 Fall Total Score 0 01/11/24 22:49 Level of Risk Standard/Low Risk 01/11/24 22:49 Problems (Last Reviewed 07/14/23 @ 11:56 by Julius Stark MD) Atrial fibrillation with rapid ventricular response (Acute) CHF (congestive heart failure) (Chronic) v v v v v v v v v Sending and/or Receiving Nurses: Please use comment section below to note any information pertinent to the patient hand-off not included above. Information / Comments:Patient is comfortable now. Report received from:Esther Combs RN
[2024-01-12 03:43] LABS: Troponin I < 50 ng/L (< or =60)
[2024-01-12 06:19] LABS: HCT 49.4 % (36.0-46.0); HGB 16.5 g/dL (11.2-15.7); MCH 30.8 pg (27.0-33.0); MCHC 33.4 % (32.0-36.0); MCV 92 fL (80-95); Platelet Count 175 10^3/uL (130-400); RBC 5.36 10^6/uL (3.93-5.22); RDW 13.4 % (11.7-14.6); RDW-SD 44.8 fL; WBC 6.49 10^3/uL (4.4-10.8)
[2024-01-12] MEDS: Metoprolol 50 MG TAB PO ×3 (06:24→22:25)
[2024-01-12] MEDS: dilTIAZem 60 MG TAB PO ×3 (06:24→17:47)
[2024-01-12 06:39] LABS: ALT 19 U/L (14-59); AST 24 U/L (15-37); Albumin 3.1 g/dL (3.4-5.0); Alkaline Phosphatase 79 U/L (46-116); Anion Gap 9.2 mmol/L (3-11); BUN 17 mg/dL (7-18); Bilirubin, Total 1.55 mg/dL (0.2-1.0); CO2 30.8 mmol/L (21.0-32.0); CREATININE 1.1 mg/dL (0.55-1.02); Calcium 8.7 mg/dL (8.5-10.1); Chloride 102 mmol/L (98-107); Estimated GFR 53.06 (mL/min/1.73m2); Glucose 138 mg/dL (74-106); Magnesium 1.9 mg/dL (1.8-2.4); Potassium 3.3 mmol/L (3.5-5.1); Sodium 142 mmol/L (136-145); Troponin I < 50 ng/L (< or =60)
[2024-01-12] MEDS: Furosemide 100 MG/10 ML VIAL 80 MG IVP ×2 (07:29→15:32)
[2024-01-12] MEDS: Normal Saline Flush 10 ML SYR IVP ×3 (07:30→19:41)
[2024-01-12] MEDS: Tiotropium Bromide-Respimat 10 PUFF INH 2 PUFF IH (08:12)
[2024-01-12] MEDS: Insulin Aspart 300 UNITS/3 ML PEN SC ×3 (08:15→17:00)
[2024-01-12] MEDS: DULoxetine 30 MG CAP PO (08:16)
[2024-01-12] MEDS: Magnesium Oxide 400 MG TAB PO ×2 (08:16→19:41)
[2024-01-12] MEDS: Lisinopril 10 MG TAB PO (08:16)
[2024-01-12] MEDS: Apixaban 5 MG TAB PO ×2 (08:17→19:41)
[2024-01-12] MEDS: Aspirin E.C. 81 MG TABEC PO (08:17)
[2024-01-12] MEDS: Cholecalciferol (Vitamin D3) 1,000 UNIT TAB 1000 UNITS PO (08:17)
[2024-01-12] MEDS: Calcium Carbonate 1.25 GM TAB PO (08:17)
--- NOTE | 2024-01-12 08:37 | NUR.NOTE ---
Addendum entered by Fe Núñez 01/12/24 14:55: Per Dr Vega the duplicate EKG order was cancelled. Original Note: Accessed chart to reconcile EKG's in [facility] and orders in chart for ED. Nursing Note:
--- NOTE | 2024-01-12 09:30 | DI.US_ITS ---
APPROVED REPORT EXAM: Comprehensive 2D, Doppler, and color-flow Echocardiogram Patient Location: In-Patient Room/Bed: [address] Vene[address] Layer: Jalyn Steven RDCS (AE) Indications: Exacerbation CHF with atrial fibrillation and RVR Other Information Study Quality: Fair. Technically limited study due to body habitus, exam done supine. Conclusion Normal left ventricular wall thickness and chamber size. Ejection fraction is 50 to 55%. There are no segmental wall motion abnormalities Normal right ventricular size and function Moderately enlarged left atrium, mildly enlarged right atrium Aortic valve is sclerotic and trileaflet without stenosis or regurgitation Estimated right ventricular systolic pressure is 26 mmHg Ascending aorta measures 3.5 cm No significant change compared to study from July 2022 Wall motion Left Ventricle The left ventricle is normal size. Left ventricular systolic function is mildly decreased. Mild bernardino ntric left ventricular hypertrophy. No segmental wall motion abnormalities There is no ventricular s eptal defect visualized. LVEF is 50-55%. Right Ventricle The right ventricle is normal size. The right ventricular systolic function is normal. Atria Left atrium is moderately dilated. Right atrium is mildly dilated. The interatrial septum is intact w ith no evidence for an atrial septal defect. Aortic Valve The Aortic valve is sclerotic. Aortic valve is trileaflet. There is no aortic valvular stenosis. No a ortic regurgitation is present. Mitral Valve Mild mitral annular calcification. No evidence of mitral valve stenosis. Trace mitral regurgitation. Tricuspid Valve The tricuspid valve is normal in structure. There is no tricuspid valve stenosis. Mild to moderate tr icuspid regurgitation. The RVSP is 26.4 mmHg. Pulmonic Valve The pulmonary valve is normal in structure. There is no pulmonic valvular stenosis. There is no pulmo neo valvular regurgitation. Great Vessels The aortic root is normal in size. The ascending aorta is mildly dilated. IVC is normal in size and c ollapses >50% with inspiration. 2D Dimensions IVSD d PLAX 1.10 cm F: 0.6-1.0 Ao Root d 3.15 cm F: 2.7 - 3.3 LVPW d PLAX 1.11 cm F: 0.6 - 1.0 Ao Asc Diam d 3.50 cm F: 2.3 - 3.1 LVID d PLAX 4.22 cm F: 3.8 - 5.2 LVDs 3.22 cm F: 2.2 - 3.5 LV EF Teichholz 47.7 % FS 23.72 % LV EDV (Teich) 79.3 mL LV ESV (Teich) 41.5 mL M-Mode TAPSE 0.88 cm (M/F) >1.7 Auto EF LV EDV A4C 78.6 mL LV EDV A2C 78.3 mL LV EDV BP 78.7 mL LV ESV A4C 43.3 mL LV ESV A2C 43.7 mL LV ESV BP 43.6 mL LVEF(%) A4C 44.9 % LVEF(%) A2C 44.1 % LVEF(%) BP 44.5 % LV SV A4C 35.3 ml LV SV A2C 34.5 ml LV SV BP 35.0 ml LV CO A4C 2.9 L/min LV CO A2C 2.8 L/min LV CO BP 2.8 L/min HR A4C 82.20 BPM HR A2C 80.00 BPM LV EDV Index (BP) LA Volume LA Length A4C 6.2 cm LA Length A2C 6.3 cm LA Area A4C s 18.34 cm2 LA Area A2C s 23.35 cm2 LA Vol A4C A-L 46.32 mL LA Vol A2C A-L 73.71 mL LA Vol Biplane A-L 59.0 mL LA Vol/BSA A4C A-L LA Vol/BSA A2C A-L LA Vol/BSA BP A-L 31.0 mL/m2 LA Vol A4C MOD 43.6 mL LA Vol A2C MOD 69.3 mL LA Vol BP MOD 55.3 mL RA Volume RA Area A4C 11.9 cm2 RA ESV A4C (A-L) 25.5mL RA Vol/BSA A4C A-L RA Length A4C 4.7 cm RA ESV A4C (MOD) 23.3mL LV Diastology MV E' medial 0.055 (>0.07 m/s) MV E Vmax 1.02 (0.4-1.3 m/s) MV E/E' MED 18.42 (<14) Aortic Valve AoV Vmax 1.32 m/s LVOT Vmax 0.79 m/s AoV Peak Grad 7.1 mmHg LVOT Peak Grad 2.5 mmHg AoV Area (Vmax) 1.88 cm2 LVOT VTI 0.119 m AoV VTI 0.230 m LVOT Mean Grad 1.5 mmHg AoV Mean Crow. 0.97 m/s LVOT SV 37.31 mL AoV Mean Grad 4.3 mmHg LVOT Diam s 2.00 cm AoV Area (VTI) 1.63 cm2 Velocity Ratio 0.60 Mitral Valve MV DT 162 (160-240 msec) MV Vmax TIPS 1.26 m/s MV Mean Grad 1.4 (<2mmHg) MV VTI 0.401 m Pulmonary Valve PV Vmax 0.84 (0.5-1.5 m/s) RVOT Vmax 0.51 m/s PV Peak Grad 2.8 mmHg RVOT Peak Gr. 1.0 mmHg PV Mean Crow 0.63 m/s RVOT VTI 0.105 m PV Mean Grad 1.7 mmHg RVOT Mean Gr. 0.7 mmHg Tricuspid Valve RA Pressure 3.00 mmHg TR Vmax 2.40 m/s TV S' 0.08 m/s TR Peak Grad 23.3 mmHg RVSP (TR) 26.4 mmHg
--- NOTE | 2024-01-12 10:05 | INITIAL_ITS ---
Date of service: 01/12/24 Time of Service: 10:05 Care Management Initial Assmt Initial Assessment Reason for Hospitalization: CHF exacerbation, hypoxemia, CAF with RVR Functional Status/Living Situation Patient Presentation: Edwige was sitting up in bed when CM met with her. She was pleasant and engaged well in conversation. She stated that she is feeling good and is hopeful that she will be able to return home soon; she expected to return home today after testing. She reported that she had an echo earlier today. She stated that she usually only watches dogs and cats, but she is currently helping an older couple at their house. Per report, Trinis heartrate was elevated with ambulation this morning. Edwige stated that she is very independent and does not anticipate the need for support upon discharge. CM will continue to follow. Town of Residence: [facility] Resides with: Alone Significant Other/Family: Local Natural Supports: SonAurelio, lives [facility]; Daughter, Anabell, lives [facility]. 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 Care Team Visit Care Team Role Provider Type Esther Verma Primary Care Provider NURSE PRACTITIONER Lester Monsivais MD Emergency Provider [facility] STAFF PHYSICIAN Han Davis Admit Provider NON-[facility] STAFF PHYSICIAN Attending Provider Discharge Potential Discharge Needs: PCP F/U Appt Anticipated Barriers to Discharge: Medical Status Patient/Family Education Needs: Review discharge instructions, discuss Ask Me Three Transportation: Private vehicle Plan: Anticipate Edwige will return home once medically cleared. She will transport via private vehicle by family. She will follow up with her PCP and discharge plan of care. CM will continue to follow. PFSH All Active Problems (Updated 01/12/24 @ 00:53 by Han Davis) Atrial fibrillation with rapid ventricular response (Acute) CHF (congestive heart failure) (Acute) Edema of right lower leg (Acute) URI (upper respiratory infection) (Acute) Atrial fibrillation with rapid ventricular response (Acute) Tachycardia (Acute) COPD (chronic obstructive pulmonary disease) (Chronic) Atrial fibrillation (Chronic 04/29/14) Hypertension (Chronic) CAD (coronary artery disease) (Chronic) a. drug eluting stents Obesity (Chronic) BMI 33.0-33.9,adult (Chronic) Osteoarthritis (Chronic) H/O carpal tunnel syndrome (Chronic) Chronic low back pain (Chronic) H/O hypercalcemia (Chronic) H/O hyperparathyroidism (Chronic) a. Surgery to remove adenomas Osteopenia (Chronic) Psoriasis (Chronic) Elevated hematocrit (Chronic) Elevated hemoglobin (Chronic) Impaired fasting glucose (Chronic) Metabolic syndrome (Chronic) a. triglycerides greater than 300 and HDL less than 30 Hypertensive CKD (chronic kidney disease) (Chronic) A. probably stage 1 or 2 B. baseline creatinine 1.1 to 1.2 Sepsis (Acute) Prediabetes (Acute) Erythrocytosis (Chronic) Abnormal LFTs (Acute) Hypomagnesemia (Acute) Acute CHF (Acute) Moderate pulmonary arterial systolic hypertension (Chronic) Acute renal insufficiency (Acute) Post-menopausal bleeding (Acute) Chronic atrial fibrillation with rapid ventricular response (Acute) Pneumonia (Acute) Acute kidney injury superimposed on chronic kidney disease (Acute) Peripheral neuropathy (Acute) Lung nodule (Acute) CHF (congestive heart failure) (Chronic) Exertional shortness of breath (Acute) Diabetes mellitus (Chronic) Fatigue (Acute) Increased sputum production (Acute) Snoring (Acute) Seasonal allergies (Acute) Hyperlipidemia (Acute) Skin lesion (Acute) Emphysema lung (Acute) Thyroid nodule (Acute) Medical History Degenerative joint disease of right hip Cataracts, bilateral Trigger finger, right index finger Rosacea Leg pain, right Loss of balance Hyperparathyroidism Polycythemia vera CKD (chronic kidney disease) Pulmonary hypertension Muscle spasm Rhinitis PONV (postoperative nausea and vomiting) Acute bronchitis Surgical History H/O benign neoplasm resected Hx of cardiac cath 2 stents H/O parathyroidectomy s/p 2 stents Family History Other Heart disease Social History Smoking/Tobacco Use Status: Former Tobacco Use Quit Date: 07/18/06 Tobacco: How many years used: 30 Smoking risk assessment performed?: Yes Alcohol Intake: never Drug use: Never Substance use type: does not use Housing: house What type of physical activity do you participate in: none Do you feel safe at home: Yes Additional Social history: lives alone. SDOH(Care Management) Screening Will the Patient Participate in the Screening?: Yes Do you worry about having a steady place to live?: yes In the past 12 months, have you had to go without electric, gas, oil or water in your home?: no Have you or anyone in your house had to go without enough food to eat?: no Has lack of transportation kept you from medical appointments or from doing things needed for daily living?: no Has anyone in your support network made you feel unsafe for any reason?: no Health Related Social Needs Health related social needs: housing instability, housed, with risk of homelessness(Z59.811)
[2024-01-12] MEDS: Potassium Chloride 20 MEQ TABCR 40 MEQ PO (11:12)
--- NOTE | 2024-01-12 14:07 | CHAPLAIN ---
Edwige was resting in bed when I visited, after returning from some tests. She said she came to the ED last night when she wasn't feeling well. She's been caring for an older couple in [place]. Edwige explained that she's been dealing with AFib and is usually asymptomatic. She is well supported by her son and daughter and has many friends in the community. Her several years ago.
[2024-01-12] MEDS: Montelukast 10 MG TAB PO (19:41)
[2024-01-12] MEDS: Acetaminophen 325 MG TAB PO (22:25)
[2024-01-13] VITALS (12 sets, daily range): BP systolic 106–134; BP diastolic 53–93; PULSE 47–110; RESP 3–20; TEMP 35.8–36.8; O2SAT 89–93
[2024-01-13] MEDS: dilTIAZem 60 MG TAB PO ×4 (00:04→18:00)
[2024-01-13] MEDS: Metoprolol 50 MG TAB PO ×3 (05:52→20:25)
[2024-01-13] MEDS: Tiotropium Bromide-Respimat 10 PUFF INH 2 PUFF IH (07:48)
[2024-01-13] MEDS: Lisinopril 10 MG TAB PO (08:09)
[2024-01-13] MEDS: Magnesium Oxide 400 MG TAB PO ×2 (08:09→20:24)
[2024-01-13] MEDS: DULoxetine 30 MG CAP PO (08:09)
[2024-01-13] MEDS: Cholecalciferol (Vitamin D3) 1,000 UNIT TAB 1000 UNITS PO (08:09)
[2024-01-13] MEDS: Aspirin E.C. 81 MG TABEC PO (08:09)
[2024-01-13] MEDS: Apixaban 5 MG TAB PO ×2 (08:10→20:25)
[2024-01-13] MEDS: Insulin Aspart 300 UNITS/3 ML PEN SC ×3 (08:10→16:57)
[2024-01-13] MEDS: Calcium Carbonate 1.25 GM TAB PO (08:10)
[2024-01-13] MEDS: Furosemide 100 MG/10 ML VIAL 80 MG IVP ×2 (08:11→16:57)
[2024-01-13] MEDS: Normal Saline Flush 10 ML SYR IVP ×3 (08:12→20:43)
--- NOTE | 2024-01-13 09:30 | PGE_ITS ---
Date of Service Date of service: 01/13/24 Time of Service: 09:31 Assessment and Plan Assessment and plan (1) Atrial fibrillation with rapid ventricular response: Start date: 01/11/24 Status: Acute Assessment and plan: Continue Cardizem and metoprolol home dose and Eliquis Expecting better rate control as CHF exacerbation is treated Continue tele (2) CHF (congestive heart failure): Start date: 01/11/24 Status: Acute Assessment and plan: Still requires with this mentation for89% on 0.5 L of oxygen Will continue IV Lasix and transition to oral torsemide Echocardiogram showed LVEF 50-55%, RVSP 26 mmHg BMP in AM Qualifiers: Heart failure chronicity: acute on chronic Heart failure type: combined systolic and diastolic Qualified Code(s): I50.43 - Acute on chronic combined systolic (congestive) and diastolic (congestive) heart failure (3) Hypomagnesemia: Status: Acute Assessment and plan: Mag 1.9 yesterday; this has resolved Mg in AM (4) Hypertension: Status: Chronic Assessment and plan: Continue home therapy; this might resolve with the the resolution of the CHF exacerbation Cr 1.3 trending hold lisinopril Qualifiers: Hypertension type: primary hypertension Qualified Code(s): I10 - Essential (primary) hypertension (5) Diabetes mellitus: Status: Chronic Assessment and plan: Continue glucometer measurements before meals and at bedtime with corrective sliding scale insulin coverage while hospitalized. Resume home long acting insulin NPH Blood sugar with 4 AM vitals Qualifiers: Chronic kidney disease stage: stage 3 (moderate) Chronic kidney disease stage 3 subtype: stage 3b (GFR 30-44) Diabetes mellitus complication detail: with chronic kidney disease Diabetes mellitus complication status: with kidney complications Diabetes mellitus assisted insulin use: with terminal operator use Diabetes mellitus type: type 2 Qualified Code(s): E11.22 - Type 2 diabetes mellitus with diabetic chronic kidney disease; N18.32 - Chronic kidney disease, stage 3b; Z79.4 - terminal computer operator (current) use of insulin (6) CKD (chronic kidney disease): Assessment and plan: Cr 1.3 BMP in the morning Qualifiers: Chronic kidney disease stage: stage 3 (moderate) Chronic kidney disease stage 3 subtype: stage 3b (GFR 30-44) Qualified Code(s): N18.32 - Chronic kidney disease, stage 3b (7) COPD (chronic obstructive pulmonary disease): Status: Chronic Assessment and plan: Continue home management with inhaler therapy the patient had no home O2 re quirement but had an element of emphysema. Patient was a previous smoker. Goals for saturation 88 to 92% Yellowish sputum not sure re: change in color, nigh sweats w/o fever, procalcitoning pending considering doxycycline and steroids Qualifiers: COPD type: emphysema Emphysema type: other Qualified Code(s): J43.8 - Other emphysema (8) CAD (coronary artery disease): Status: Chronic Assessment and plan: Continue home medical regimen with ASA and nitro sublingual as needed; also on Eliquis due to atrial fibrillation PRN nitro Discussed with Dr. Miller Qualifiers: Associated angina: unspecified whether angina present Coronary Disease- Associated Artery/Lesion type: [place] artery [place] vs. transplanted heart: [place] heart Qualified Code(s): I25.10 - Atherosclerotic heart disease of [place] coronary artery without angina pectoris Subjective Subjective Patient reports: no new complaints, feels better, tolerating liquids well, tolerating a regular diet, voiding w/o difficulty, flatus, bowel movement, shortness of breath (on exertion ) and other (Night sweats ); denies diarrhea, n ausea or vomiting Exam Narrative Exam Narrative: Constitutional The patient in bed comfortable but increased WOB with long sentences Neuro:alert and oriented X3 , non-focal Resp: clear upper lung bilaterally with diminished bases Cardio: irregular rhythm, tele atrial fibrillation HR 94-101, S1, S2, palpable pulses to al 4 ext. GI: Abdomen is not distended, soft and non tender, bowel sounds are present Psych: RASS 0, congruent mood and normal affect. Objective Last Vital Signs Temp 36.3 C L 01/13/24 07:55 Pulse 102 H 01/13/24 07:55 Resp 15 01/13/24 07:55 BP 110/93 H 01/13/24 07:55 Pulse Ox 89 L 01/13/24 08:52 Time Spent with Patient Time Spent with Patient: >50 minutes Time was spent: preparing to see the patient(eg.review tests), obtaining and/or reviewing separately otained hiistory, ordering medications,tests, procedures, referring, communicating with other health primary care physician, indepentently interpreting results, counseling the patient and care coordination
[2024-01-13 10:44] LABS: Anion Gap 10.2 mmol/L (3-11); BUN 26 mg/dL (7-18); CO2 29.8 mmol/L (21.0-32.0); CREATININE 1.3 mg/dL (0.55-1.02); Calcium 8.9 mg/dL (8.5-10.1); Chloride 96 mmol/L (98-107); Estimated GFR 43.42 (mL/min/1.73m2); Glucose 317 mg/dL (74-106); Potassium 3.6 mmol/L (3.5-5.1); Sodium 136 mmol/L (136-145)
--- NOTE | 2024-01-13 11:12 | PDOC.CMDIS ---
Date of service: 01/13/24 Time of Service: 11:12 Care Management Discharge SDOH Health Related Social Needs: Health related social needs risk of homeless Health related social needs: housing instability, housed, with risk of homelessness(Z59.811)
--- NOTE | 2024-01-13 11:17 | CMPROGNOTE_ITS ---
Date of service: 01/13/24 Time of Service: 11:17 Care Management Progress Note Progress Note Text Progress Note Text: Edwige was sitting up in her chair when CM met with her. She stated that she is doing well, but she was very hot overnight which interrupted her sleep. She expressed that she would like to return home as soon as possible. She is currently on supplemental O2, which she does not use at baseline, and per report, she is on IV lasix as well. Per report, she is not medically cleared for discharge. Edwige stated that she is ok remaining at [facility], but she is anxious to return home. She has a lot of support in the community; she will transport via private vehicle by a friend or family member when she is ready. She does not anticipate the need for services upon discharge. CM will continue to follow. Discharge Potential Discharge Needs: PCP F/U Appt Anticipated Barriers to Discharge: Medical Status Patient/Family Education Needs: Review discharge instructions, discuss Ask Me Three Transportation: Private vehicle Plan: Anticipate Edwige will return home once medically cleared. She will transport via private vehicle by family. She will follow up with her PCP and discharge plan of care. CM will continue to follow. SDOH(Care Management) Screening Will the Patient Participate in the Screening?: Yes Do you worry about having a steady place to live?: yes In the past 12 months, have you had to go without electric, gas, oil or water in your home?: no Have you or anyone in your house had to go without enough food to eat?: no Has lack of transportation kept you from medical appointments or from doing things needed for daily living?: no Has anyone in your support network made you feel unsafe for any reason?: no Health Related Social Needs Health related social needs: housing instability, housed, with risk of ho melessness(Z59.811)
--- NOTE | 2024-01-13 15:06 | CHAPLAIN ---
I had a brief visit with Edwige this afternoon, just before she get ready to have a shower. She said she's staying over night. She originally expected to go home yesterday after having an echo. Her son, Noel, visit last night. Her daughter lives in [facility] but may be in to visit today. I will try to visit Edwige before the end of the day.
[2024-01-13] MEDS: Insulin NPH-Human 300 UNITS/3 ML PEN 24 UNIT SC (17:09)
[2024-01-13] MEDS: guaiFENesin 600 MG TABCR PO (17:09)
[2024-01-13] MEDS: Albuterol/Ipratropium 3 ML UPD VIAL UPD (18:32)
[2024-01-13] MEDS: Montelukast 10 MG TAB PO (20:24)
[2024-01-14] VITALS (9 sets, daily range): BP systolic 108–116; BP diastolic 69–91; PULSE 55–103; RESP 2–19; TEMP 36.4–37.4; O2SAT 90–97
[2024-01-14 00:23] LABS: Procalcitonin < 0.1 ng/mL
[2024-01-14] MEDS: Albuterol/Ipratropium 3 ML UPD VIAL UPD ×2 (01:37→07:42)
[2024-01-14] MEDS: dilTIAZem 60 MG TAB PO ×3 (06:23→11:46)
[2024-01-14] MEDS: Metoprolol 50 MG TAB PO (06:23)
[2024-01-14 06:41] LABS: Anion Gap 6.3 mmol/L (3-11); BUN 27 mg/dL (7-18); CO2 31.7 mmol/L (21.0-32.0); CREATININE 1.1 mg/dL (0.55-1.02); Calcium 8.6 mg/dL (8.5-10.1); Chloride 100 mmol/L (98-107); Estimated GFR 53.06 (mL/min/1.73m2); Glucose 152 mg/dL (74-106); Potassium 3.2 mmol/L (3.5-5.1); Sodium 138 mmol/L (136-145)
[2024-01-14] MEDS: Tiotropium Bromide-Respimat 10 PUFF INH 2 PUFF IH (07:41)
[2024-01-14] MEDS: Magnesium Oxide 400 MG TAB PO (08:10)
[2024-01-14] MEDS: guaiFENesin 600 MG TABCR PO (08:11)
[2024-01-14] MEDS: Torsemide 20 MG TAB 40 MG PO (08:11)
[2024-01-14] MEDS: Aspirin E.C. 81 MG TABEC PO (08:11)
[2024-01-14] MEDS: Cholecalciferol (Vitamin D3) 1,000 UNIT TAB 1000 UNITS PO (08:11)
[2024-01-14] MEDS: Calcium Carbonate 1.25 GM TAB PO (08:12)
[2024-01-14] MEDS: DULoxetine 30 MG CAP PO (08:12)
[2024-01-14] MEDS: Apixaban 5 MG TAB PO (08:12)
[2024-01-14] MEDS: Insulin NPH-Human 300 UNITS/3 ML PEN 24 UNIT SC (08:13)
[2024-01-14] MEDS: Normal Saline Flush 10 ML SYR IVP (08:13)
[2024-01-14] MEDS: Insulin Aspart 300 UNITS/3 ML PEN SC ×2 (08:13→11:50)
--- NOTE | 2024-01-14 08:39 | PDOC.CMDIS ---
Date of service: 01/14/24 Time of Service: 08:39 LACE Index Scoring Tool Questions: Length of Stay (in days): 2 Was the patient admitted via the E.D.?: Yes Comorbidities: Diabetes w/o Complication, Congestive Heart Failure, Chronic Pulmonary Disease and Liver or Renal Disease E.D. Visits: 1 Answers: Total Score: 11 Risk of Readmission: High Risk Care Management Discharge Plan Reason for Hospitalization: CHF Discharge Plan: Edwige will return home with no new services. She will transport via private vehicle by family and will follow up with her PCP and discharge plan of care. Patient/Family Education Needs: Review discharge instructions, discuss Ask Me Three SDOH Health Related Social Needs: Health related social needs risk of homeless Health related social needs: housing instability, housed, with risk of homelessness(Z59.811)
--- NOTE | 2024-01-14 10:25 | W.PM.DS.N ---
Date of service: 01/14/24 Time of Service: 10:25 DS: Diagnosis Discharge Diagnosis (1) Atrial fibrillation with rapid ventricular response: Status: Acute (2) CHF (congestive heart failure): Status: Acute (3) Hypomagnesemia: Status: Acute (4) Hypertension: Status: Chronic (5) Diabetes mellitus: Status: Chronic (6) CKD (chronic kidney disease): (7) COPD (chronic obstructive pulmonary disease): Status: Chronic (8) CAD (coronary artery disease): Status: Chronic Discharge Plan Disposition Patient Disposition: Home Condition: Stable Discharge Details Reason For Visit: CHF exacerbation, Hypoxemia, CAF with RVR Admit Date/Time: 01/12/24 00:32 Admit Provider: Han Davis Attending Provider: Han Davis Primary Care Provider: Esther Verma Hospital Course Hospital Course: This is a 73-year-old female patient with a past medical history significant for atrial fibrillation anticoagulated on apixaban congestive heart failure diabetes mellitus type 2, COPD who presented to the emergency department with shortness of breath found to be in A-fib with rapid ventricular response and congestive heart failure. She was requiring oxygen to maintain sats in the 90s on room air. She was diuresed well with IV Lasix and then transition to oral torsemide. An echocardiogram did reveal a EF of 50 to 55% with RVSP of 26 mmHg. She did have improvement in her rate with diuresis. She is now stable and at her baseline and ready for discharge to home. She will continue her Cardizem and Lopressor as previously prescribed but will stop furosemide and initiate torsemide. He is being discharged to home with no services. discussed with DR Miller Oriska Meds and New Rx's Prescriptions: New torsemide 20 mg Tablet 40 mg PO DAILY Qty: 60 0RF Continued aspirin [Adult Aspirin Regimen] 81 mg tablet,delayed release (DR/EC) 81 mg PO DAILY Qty: 90 0RF metoprolol succinate 100 mg tablet extended release 24 hr 100 mg PO DAILY Qty: 90 6RF Victoza 3-Abdulaziz 0.6 mg/0.1 mL (18 mg/3 mL) pen injector 0.6 mg subcut HS Eliquis 5 MG tablet 5 mg PO BID Qty: 60 montelukast 10 mg tablet 10 mg PO HS betamethasone valerate 0.1 % ointment 1 applic topical DAILY PRN nitroglycerin 0.4 MG tablet, sublingual 0.4 mg Sublingual PER PROTOCOL Rx Instructions: needs script renewed cholecalciferol (vitamin D3) 1,000 UNITS tablet 1,000 units PO DAILY calcium carbonate 430 mg calcium (1,000 mg) Tablet,Chewable 1,000 mg PO DAILY lisinopril 10 mg tablet 10 mg PO DAILY Spiriva Respimat 1.25 mcg/actuation mist 2 spray INHALATION DAILY metoprolol succinate 50 mg tablet extended release 24 hr 50 mg PO DAILY Patient Comments: TAKE ONE TABLET BY MOUTH EVERY DAY with 100 mg tab for total dose = 150 mg Novolin N FlexPen 100 unit/mL (3 mL) insulin pen 24 unit SUBCUT DAILY Patient Comments: INJECT 24 UNITS UNDER THE SKIN ONCE DAILY guaifenesin [Mucus Relief ER] 600 mg Tablet Extended Release 12hr 600 mg PO BID PRN PRN (Reason: cough) Qty: 30 0RF diltiazem HCl 240 mg capsule,extended release 24hr 240 mg PO DAILY Qty: 30 0RF diltiazem HCl 120 mg capsule,extended release 24 hr 120 mg PO DAILY Patient Comments: TAKE ONE CAPSULE BY MOUTH EVERY DAY (DME) pen needle, diabetic [BD Ultra-Fine Short Pen Needle] 31 gauge x 5/16 needle MISCELLANEOUS Patient Comments: USE 1 NEEDLE UNDER THE SKIN TWO TIMES A DAY DIRECTED duloxetine 30 mg capsule,delayed release(DR/EC) 30 mg PO DAILY Patient Comments: TAKE ONE CAPSULE BY MOUTH EVERY DAY Discontinued furosemide [Lasix] 40 mg tablet 60 mg PO DAILY Discharge Instructions Instructions: Heart failure and atrial fibrillation Additional Instructions: your diuretic (water pill) has been changed from furosemide to torsemide so please medicinal plant picker your new prescription from the pharmacy. monitor your weight 3 times weekly and record. Please notify your primary care provider if weight increases more than 3-5 pounds. Stand Alone Forms: Nursing Discharge Form Referrals: Esther Verma [Primary Care Provider] - (PLease call your primary care provider to schedule a follow up appointment in 1-2 weeks: [phone]) Activity:: Activity as Tolerated Equipment/Supplies:: No Equipment Needed Diet:: Low Sodium Discharge Orders Discharge Orders: Discharge Order (Routine); Ordered 01/14/24 Ordered By: Corine Crawford DS: Summary Time Spent with Patient providing and/or coordinating discharge services: Greater than 30 minutes Status at Discharge Functional status at discharge: independent ambulation Overall status at discharge: patient is progressing back to baseline Mental Status: mental status grossly normal Speech and Movement: speech and movement normal Mood: congruent mood Affect: normal affect Quality:SDOH Health Related Social Needs: Health related social needs risk of homeless Exam Narrative Exam Narrative: White female of stated age in no acute distress head is atraumatic eyes nonicteric noninjected oral mucosa moist neck is supple with no JVD cardiovascular irregular rhythm, controlled atrial fibrillation, no murmurs appreciated her respirations are even and unlabored her breath sounds are diminished throughout no wheezing noted her abdomen is round soft nontender. Skin with no rashes or lesions. Neurologic awake alert oriented no focal deficits psychiatric normal mood and affect moves all extremities no peripheral edema Psych Mental Status: mental status grossly normal Speech and Movement: speech and movement normal Mood: congruent mood Affect: normal affect DS: Data Vitals/I&O Vitals and I&O: Vital Signs Temperature 36.8 C 01/14/24 07:55 Temperature Source Tympanic 01/14/24 07:55 Pulse 85 01/14/24 07:55 Pulse Rhythm Regular 01/14/24 08:23 Pulse 111 H 01/12/24 00:46 Respiratory Rate 19 01/14/24 07:55 Respiratory Effort Normal, Non-Labored 01/14/24 08:23 Respiratory Depth Normal 01/14/24 08:23 Respiratory Pattern Normal 01/14/24 08:23 Blood Pressure 110/75 01/14/24 07:55 Blood Pressure Mean 68 01/12/24 00:46 Pulse Oximetry 95 01/14/24 07:55 Oxygen Delivery Method Room Air 01/14/24 07:55 Oxygen Flow Rate 0 01/14/24 07:55 Pain Level 0 01/14/24 07:55 Comment right forearm BP 01/13/24 23:53 Intake & Output 01/13/24 01/13/24 01/14/24 11:59 23:59 11:59 Intake Total 30 / 60 30 / 60 214 / 214 Output Total 380 / 1580 1200 / 1580 950 / 950 Balance -350 / -1520 -1170 / -1520 -736 / -736 Weight 84.368 kg 84.4 kg Intake: IV 30 / 60 30 / 60 10 / 10 Oral 204 / 204 Output: Urine 380 / 1580 1200 / 1580 950 / 950 Other: Urine Color Yellow Yellow Yellow Urine Appearance Clear Clear Clear Urine Odor Strong Normal Normal Voiding Methods Toilet Toilet Toilet Incontinent Data Completed and Pending Labs on day of discharge: Labs from last 24 hours 01/14/24 01/13/24 01/13/24 05:53 10:50 10:15 Sodium 138 136 Potassium 3.2 L 3.6 Chloride 100 96 L Carbon Dioxide 31.7 29.8 Anion Gap 6.3 10.2 BUN 27 H 26 H Creatinine 1.1 H 1.3 H Est GFR (CKD-EPI 2020) 53.06 43.42 Glucose 152 H 317 H Calcium 8.6 8.9 Procalcitonin < 0.1 PFSH All Active Problems (Updated 01/12/24 @ 00:53 by Han Davis) Atrial fibrillation with rapid ventricular response (Acute) CHF (congestive heart failure) (Acute) Edema of right lower leg (Acute) URI (upper respiratory infection) (Acute) Atrial fibrillation with rapid ventricular response (Acute) Tachycardia (Acute) COPD (chronic obstructive pulmonary disease) (Chronic) Atrial fibrillation (Chronic 04/29/14) Hypertension (Chronic) CAD (coronary artery disease) (Chronic) a. drug eluting stents Obesity (Chronic) BMI 33.0-33.9,adult (Chronic) Osteoarthritis (Chronic) H/O carpal tunnel syndrome (Chronic) Chronic low back pain (Chronic) H/O hypercalcemia (Chronic) H/O hyperparathyroidism (Chronic) a. Surgery to remove adenomas Osteopenia (Chronic) Psoriasis (Chronic) Elevated hematocrit (Chronic) Elevated hemoglobin (Chronic) Impaired fasting glucose (Chronic) Metabolic syndrome (Chronic) a. triglycerides greater than 300 and HDL less than 30 Hypertensive CKD (chronic kidney disease) (Chronic) A. probably stage 1 or 2 B. baseline creatinine 1.1 to 1.2 Sepsis (Acute) Prediabetes (Acute) Erythrocytosis (Chronic) Abnormal LFTs (Acute) Hypomagnesemia (Acute) Acute CHF (Acute) Moderate pulmonary arterial systolic hypertension (Chronic) Acute renal insufficiency (Acute) Post-menopausal bleeding (Acute) Chronic atrial fibrillation with rapid ventricular response (Acute) Pneumonia (Acute) Acute kidney injury superimposed on chronic kidney disease (Acute) Peripheral neuropathy (Acute) Lung nodule (Acute) CHF (congestive heart failure) (Chronic) Exertional shortness of breath (Acute) Diabetes mellitus (Chronic) Fatigue (Acute) Increased sputum production (Acute) Snoring (Acute) Seasonal allergies (Acute) Hyperlipidemia (Acute) Skin lesion (Acute) Emphysema lung (Acute) Thyroid nodule (Acute) Medical History Degenerative joint disease of right hip Cataracts, bilateral Trigger finger, right index finger Rosacea Leg pain, right Loss of balance Hyperparathyroidism Polycythemia vera CKD (chronic kidney disease) Pulmonary hypertension Muscle spasm Rhinitis PONV (postoperative nausea and vomiting) Acute bronchitis Surgical History H/O benign neoplasm resected Hx of cardiac cath 2 stents H/O parathyroidectomy s/p 2 stents Family History Other Heart disease Social History Smoking/Tobacco Use Status: Former Tobacco Use Quit Date: 07/18/06 Tobacco: How many years used: 30 Smoking risk assessment performed?: Yes Alcohol Intake: never Drug use: Never Substance use type: does not use Housing: house What type of physical activity do you participate in: none Do you feel safe at home: Yes Additional Social history: lives alone. Time Spent with Patient Time Spent with Patient: 70-84 minutes4 Time was spent: preparing to see the patient(eg.review tests), obtaining and/or reviewing separately otained hiistory, ordering medications,tests, procedures, indepentently interpreting results and counseling the patient
[2024-01-14] MEDS: Potassium Chloride 20 MEQ TABCR 40 MEQ PO (13:29)
--- NOTE | 2024-02-19 07:04 | NUR.NOTE ---
Access chart to determine time that the patient was admitted. Nursing Note:
== END 2024-01-14 13:32 | disposition home or self-care (01) | DRG 308 ==
LOC: ER 01-12 00:55 → MS 01-12 01:03
PROVIDERS: Nurse Practitioner Acute Care; Admitting Provider Family Medicine; Emergency Provider Emergency Medicine; PCP Nurse Practitioner Family; Visit Provider Family Medicine
DX: I48.20 Chronic atrial fibrillation, unspecified (principal); I50.43 Acute on chronic combined systolic (congestive) and diastolic (congestive) heart failure; I13.0 Hypertensive heart and chronic kidney disease with heart failure and stage 1 through stage 4 chronic kidney disease, or unspecified chronic kidney disease; R09.02 Hypoxemia; E83.42 Hypomagnesemia; N18.32 Chronic kidney disease, stage 3b; E11.22 Type 2 diabetes mellitus with diabetic chronic kidney disease; I25.10 Atherosclerotic heart disease of native coronary artery without angina pectoris; Z79.4 Long term (current) use of insulin; Z68.33 Body mass index [BMI] 33.0-33.9, adult; E11.42 Type 2 diabetes mellitus with diabetic polyneuropathy; Z66 Do not resuscitate; J44.9 Chronic obstructive pulmonary disease, unspecified; Z95.5 Presence of coronary angioplasty implant and graft; G89.29 Other chronic pain; M54.50 Low back pain, unspecified; M85.80 Other specified disorders of bone density and structure, unspecified site; L40.9 Psoriasis, unspecified; I27.20 Pulmonary hypertension, unspecified; D75.1 Secondary polycythemia; R91.1 Solitary pulmonary nodule; E89.2 Postprocedural hypoparathyroidism; Z87.891 Personal history of nicotine dependence; E66.01 Morbid (severe) obesity due to excess calories
CPT/HCPCS: 00123; 36415; 80048; 80053; 84145; 85027; 93005; 93306; 94640; 96374; 96375; 99285; 71045; 81003; 81015; 83735; 83880; 84443; 84484; 85610; 85730; 93010; 94664; 94667; 94668; 94760; 99223; 99233; 99239; J1815; J1940; J7620

== ENCOUNTER → 2024-01-16 13:37 | Outpatient (BNVA) | payer MEDICARE, SELFPAY | PROVIDERS: PCP Nurse Practitioner Family; Visit Provider Internal Medicine Cardiovascular Disease | DX: I48.21 Permanent atrial fibrillation (principal); I50.43 Acute on chronic combined systolic (congestive) and diastolic (congestive) heart failure; I25.10 Atherosclerotic heart disease of native coronary artery without angina pectoris | CPT/HCPCS: 99213 ==

== ENCOUNTER 2024-01-25 15:33 | Outpatient (REF) | payer MEDICARE, SELFPAY ==
[2024-01-25 16:15] LABS: Hemoglobin A1C 8.4 % (<5.7)
[2024-01-25 16:34] LABS: ALT 40 U/L (14-59); AST 24 U/L (15-37); Albumin 3.6 g/dL (3.4-5.0); Alkaline Phosphatase 102 U/L (46-116); Anion Gap 9.3 mmol/L (3-11); BUN 30 mg/dL (7-18); Bilirubin, Total 1.31 mg/dL (0.2-1.0); CO2 29.7 mmol/L (21.0-32.0); CREATININE 1.5 mg/dL (0.55-1.02); Calcium 9.4 mg/dL (8.5-10.1); Chloride 101 mmol/L (98-107); Estimated GFR 36.57 (mL/min/1.73m2); Glucose 163 mg/dL (74-106); Potassium 4.3 mmol/L (3.5-5.1); Sodium 140 mmol/L (136-145); Total Protein 7.4 g/dL (6.4-8.2)
[2024-01-26 08:36] LABS: Parathyroid Hormone,Intact 104 pg/mL (19-88)
== END 2024-01-25 15:34 | disposition home or self-care (01) ==
LOC: NCHCN 15:33
PROVIDERS: PCP Nurse Practitioner Family; Visit Provider Nurse Practitioner Family
DX: E11.9 Type 2 diabetes mellitus without complications (principal); E21.3 Hyperparathyroidism, unspecified
CPT/HCPCS: 80053; 83036; 83970

== ENCOUNTER → 2024-02-13 09:35 | Outpatient (BNVA) | payer MEDICARE, SELFPAY | PROVIDERS: PCP Nurse Practitioner Family; Referring Provider Nurse Practitioner Family; Visit Provider Internal Medicine Critical Care Medicine | DX: J43.8 Other emphysema (principal); J96.01 Acute respiratory failure with hypoxia; Z72.0 Tobacco use; C34.91 Malignant neoplasm of unspecified part of right bronchus or lung | CPT/HCPCS: 99214 ==

== ENCOUNTER 2024-02-15 14:55 | Outpatient (REF) | payer MEDICARE, SELFPAY ==
--- OUTSIDE RECORDS SUMMARY | 2024-02-15 14:57 | XMS_ITS | Encounter Summary ---
Author Organization [facility] [place] [address] Care Team Providers Care Nursing Agency Manager Name Role Phone Esther Verma APRN Primary Care Provider [phone] Encounter Details Date Type Department Care Team (Latest Contact Info) Description 09/15/2022 12:49 PM EST - 09/15/2022 11:59 PM EST Hospital [place] [id number] Discharge Disposition: Home Social History Tobacco Use Types Packs/Day Years Used Date Smoking Tobacco: Former Cigarettes Q uit: 10/01/2004 Smokeless Tobacco: Never Alcohol Use Standard Drinks/Week Comments No 0 (1 standard drink = 0.6 oz pur e alcohol) Sex and Gender Information Value Date Recorded Sex Assigned at Not on file Gender Identity Not on file Sexual Orientation Not on file documented as of this encounter Medications at Time of Discharge Medication Sig Dispensed Refills Start Date End Date Eliquis 5 mg Tablet TAKE ONE TABLET BY MOUTH TWICE A DAY 10/30/2020 betamethasone valerate (VALISONE) 0.1 % Ointment APPLY TOPICALLY TWICE A DAY TO THE EARS 08/22/2020 freestyle lite strips TEST 3 TIMES DAILY 09/07/2020 calcium carbonate (Tums) 200 mg calcium (500 mg) Tablet, Chewable Take 1 tablet by mouth 4 times daily as needed. furosemide (Lasix) 40 mg Tablet TAKE ONE TABLET BY MOUTH EVERY DAY 11/01/2020 gabapentin (Neurontin) 100 mg Capsule TAKE TWO CAPSULES BY MOUTH AT BEDTIME 09/03/2020 NovoLIN N Flexpen Insulin Pen INJECT 15 UNITS UNDER THE SKIN EVERY DAY 11/18/2020 insulin regular human Solution Inject 15 Units subcutaneously. 05/28/2020 montelukast (Singulair) 10 mg Tablet TAKE ONE TABLET BY MOUTH EVERY DAY 10/30/2020 BD Ultra-Fine Short Pen Needle 31 gauge x 5/16 Needle INJECT SUBCUTANEOUSLY DAILY DIRECTED 09/09/2020 lisinopriL (Prinivil;Zestril) 5 mg Tablet TAKE ONE TABLET BY MOUTH EVERY DAY 11/01/2020 metoprolol succinate (TOPROL-XL) 100 mg Tablet Sustained Release 24 hr Take 100 mg by mouth daily. nitroGLYcerin (NITROSTAT) 0.4 mg Tablet, Sublingual Place 1 tablet under the tongue every 5 minutes as needed for Chest pain. 90 tablet 12 10/01/2014 clobetasol (TEMOVATE) 0.05 % cream Apply topically 2 times daily. cholecalciferol, Vitamin D3, 400 unit tablet 400 UNIT = 1 Tablet(s), PO, Three times daily 12/23/2009 calcium carbonate (OS-NATALIIA) 500 mg (1,250 mg) tablet 500 MG = 1 Tablet(s), PO, Three times daily 12/23/2009 documented as of this encounter Plan of Treatment Not on file documented as of this encounter Procedures Procedure Name Priority Date/Time Associated Diagnosis Comments NON-LAYOUT INSPECTOR FINAL REPORT Routine 09/15/2022 12:53 PM EST documented in this encounter Results * (ABNORMAL) Non-Product Inspection Coordinator Final Report (09/15/2022 12:53 PM EST) Non-Product Inspection Coordinator Final Report [id number] ? Location: [facility] The signing pathologist has (i) examined the relevant preparation(s) for the specimen(s) and (ii) rendered or confirmed the diagnosis(es). . ? Non-Product Inspection Coordinator Final DIAGNOSIS Positive for Malignancy Electronically signed by: ?Shikha ALY, Javan Early Verified: ??09/17/2022 14:57 ??Pathologist Performed at: ??-[facility] [place], [place] [address] Talent Management Specialist: Shagufta Perera MD, FCAP, ??CLIA Certificate: [id number] DISCUSSION Lung, right upper lobe (CT-guided FNA): Non-small cell carcinoma; favor adenocarcinoma. A submitted TTF-1 immunostain (smear preparation) shows variable immunoreactivity of the lesional cells. THIS RESULT REQUIRES PHYSICIAN/A.P.P. FOLLOW UP CLINICAL INFORMATION CONSULTATION CASE Source: ? Lung, right upper lobe (CT-guided FNA) Clinical History: ? 1 yo female former smoker seen for a-fib and found to have LAD and a 2 cm nodule FDG + in RUL ??. Received 5 slide(s) labeled [id number] Received 0 block(s). Specimen collection date: ? 08/23/2022. For the full text of the [facility] ([facility]) report(s), please refer to [facility]. [facility] Tracking #: ? [id number] . Report to: [facility] Surgical Pathology Department [facility], [facility], 2nd Floor [address] [place], [place] ??[address] (A) [facility] 09/15/2022 12:5 3 PM EST George Garcia MD PATHOLOGY/CYTOLOGY O RDERABLES [facility] [place] [address] documented in this encounter Visit Diagnoses Not on filedocumented in this encounter Care Teams Nursing Agency Manager Relationship Specialty Start Date End Date Esther Verma APRN [address] [place] [address] PCP - General Family Medicine 11/25/20 documented as of this encounter
--- OUTSIDE RECORDS SUMMARY | 2024-02-15 14:57 | XMS_ITS | Encounter Summary ---
Author Organization [facility] [place] [address] Care Team Providers Care Stiff Neck Loader Name Role Phone Kamilla Silvestre MD Primary Care Provider [phone] Encounter Details Date Type Department Care Team (Late st Contact Info) Description 10/01/2014 Orders Only Cardiology at [address] [phone] Triston Tomas MD [facility] [place] [address] Social History Tobacco Use Types Packs/Day Years Used Date Smoking Tobacco: Former Cigarettes Q uit: 10/01/2004 Smokeless Tobacco: Never Alcohol Use Standard Drinks/Week Comments No 0 (1 standard drink = 0.6 oz pur e alcohol) Sex and Gender Information Value Date Recorded Sex Assigned at Not on file Gender Identity Not on file Sexual Orientation Not on file documented as of this encounter Plan of Treatment Not on file documented as of this encounter Procedures Procedure Name Priority Date/Time Associated Diagnosis Comments FILM LIBRARY STORAGE ONLY DX CHEST Routine 10/01/2014 4:32 PM EDT documented in this encounter Results * Film Library- Storage only DX Chest (10/01/2014 4:32 PM EDT) Anatomical Region Laterality Modality Other 10/01/2014 4:32 PM EDT Narrative 10/01/2014 4:33 PM EDT This is a Non-reportable exam Procedure Note CECILY, UNSIGNED REPORT - 10/01/2014 This is a Non-reportable exam Triston Tomas MD [facility] FILM LIBRARY ORD ERABLES documented in this encounter Visit Diagnoses Not on filedocumented in this encounter Care Teams Stiff Neck Loader Relationship Specialty Start Date End Date Kamilla Silvestre MD [address] [place] [address] PCP - General 02/13/13 11/24/20 documented as of this encounter
--- OUTSIDE RECORDS SUMMARY | 2024-02-15 14:57 | XMS_ITS | Encounter Summary ---
Author Organization [facility] [place] [address] Care Team Providers Care Radio Operator Ground Name Role Phone Esther Verma APRN Primary Care Provider Reason for Visit * Diagnostic Test (Routine) - Closed Specialty Diagnoses / Procedures Referred By Contac t Referred To Contact Radiology Diagnoses Lung nodule Procedures NM PET CT Skull Base to Mid-thigh Maribel Dacosta MD [address] [place] [address] [place] [address] Referral ID Status Reason Start Date Expiration Date V isits Requested Visits Authorized [id number] Closed Specialty Service Requested 06/16/2022 12/15/2023 1 1 Encounter Details Date Type Department Care Team (Latest Contact Info) Description 07/13/2022 8:11 AM EST - 07/13/2022 11:59 PM [facility] Hospital Encounter [place] [address] Maribel Dacosta MD [address] [place] [address] Discharge Disposition: Home Social History Tobacco Use [...] Procedure Name Priority Date/Time Associated Diagnosis Comments NM PET CT SKULL BASE TO MID-THIGH ([facility]) Routine 07/13/2022 9:42 AM EST Lung nodule POCT GLUCOSE Routine 07/13/2022 8:21 AM EST documented in this encounter Results * POCT Glucose (07/13/2022 8:21 AM EST) POC Glucose 141 65 - 199 mg/dL [facility] Comment: Supplemental ranges: <140 mg/dL before meals <180 mg/dL all other times of the day Blood 07/13/2022 8:21 AM EST 07/13/2022 8:21 AM EST Maribel Dacosta MD POINT OF CARE TEST O RDERABLES Performing Organization Address City/State/[facility] Co de Phone Number [facility] [address] documented in this encounter Visit Diagnoses Not on filedocumented in this encounter Administered Medications Inactive Administered Medications - up to 3 most recent administrations Medication Order MAR Action Action Date Dose Rate Site ALPRAZolam (Xanax) tablet 0.5 mg 0.5 mg, Oral, ONCE, 1 dose, On Tue07/13/22 at 0915, Radiology Protocol Medication, Routine Given 07/13/2022 9:00 AM EST 0.5 mg documented in this encounter Care Teams Radio Operator Ground Relationship Specialty Start Date End Date Esther Verma APRN [address] [place] [address] PCP - General Family Medicine 11/25/20 documented as of this encounter
--- OUTSIDE RECORDS SUMMARY | 2024-02-15 14:57 | XMS_ITS | Encounter Summary ---
Author Organization [facility] [place] [address] Care Team Providers Care Improvement Analyst Name Role Phone Esther Verma APRN Primary Care Provider [phone] Encounter Details Date Type Department Care Team (Late st Contact Info) Description 06/19/2023 External [place] [phone] Social History Tobacco Use Types Packs/Day Years [...] Procedure Name Priority Date/Time Associated Diagnosis Comments ECG SCAN Routine 06/19/2023 7:45 AM EST documented in this encounter Results * Scan Doc: ECG (06/19/2023 7:45 AM EST) Historical Provider MD MEDIA MGR SCAN EX T ORDR/RSLT documented in this encounter Visit Diagnoses Not on filedocumented in this encounter Care Teams Improvement Analyst Relationship Specialty Start Date End Date Esther Verma APRN [address] [place] [address] PCP - General Family Medicine 11/25/20 documented as of this encounter
--- OUTSIDE RECORDS SUMMARY | 2024-02-15 14:57 | XMS_ITS | Encounter Summary ---
Author Organization [facility] Address [facility] [place] [address] Care Team Providers Care Yard Inspector Name Role Phone Esther Verma APRN Primary Care Provider [phone] Reason for Visit * Reason Comments Skin Check * Consultation (Routine) - Closed Specialty Diagnoses / Procedures Referred By Chau car Referred To Contact Dermatology Diagnoses Psoriasis, unspecified Disorder of the skin and subcutaneous tissue, unspecified Psoriasis/skin lesion on nose Procedures Consult Esther Verma APRN [address] [place] [address] Price Vega MD [address] [place] [address], [facility] [place] [address] Referral ID Status Reason Start Date Expiration Date V isits Requested Visits Authorized [id number] Closed Consult, Test & Treat PCP Updated and/or Approved 08/21/2020 08/21/2021 12 12 Encounter Details Date Type Department Care Team (Late st Contact Info) Description 11/25/2020 8:45 AM EDT Office Visit Dermatology at [address] [phone] Price Vega MD [address] [place] [address], [facility], [facility] [place] [address] Rosacea; Psoriasis Social History Tobacco Use Types Packs/Day Years Used Date Smoking Tobacco: Former Cigarettes Q uit: 10/01/2004 Smokeless Tobacco: Never Alcohol Use Standard Drinks/Week Comments No 0 (1 standard drink = 0.6 oz pur e alcohol) Sex and Gender Information Value Date Recorded Sex Assigned at Not on file Gender Identity Not on file Sexual Orientation Not on file documented as of this encounter Progress Notes * Price Vega MD - 11/25/2020 8:45 AM EDT Problem: 1. Facial rosacea 2. History of psoriasis Edwige follows up is now 69. I last saw her in 2012. She is the mother of Anabell Davis. She states that her facial rosacea is worsening is becoming more red. Family members come into her. She wonders what can be done to control this. She is not much bothered by her psoriasis which she is able to control with topicals and coom-[id number] shampoos. Physical examination reveals a pleasant 69-year-old woman who has purplish discoloration of the nasal bridge and patchy erythema extending down onto the malar cheeks bilaterally. She has no papules or pustules today. She has brown eyes and graying dark hair. She has thin patches psoriasis on both elbows and little bit in her scalp. Assessment plan: Rosacea 1. Recommend cosmetic cover up and handout on this topic given 2. Mentioned briefly in the past and the options topical therapies and oral therapies 3. Could consider laser treatment if she want to pursue that avenue as well. 4. Return to clinic as needed History of psoriasis 1. Controlled to patient satisfaction with [id number] topicals and shampoos. CC: Esther Verma APRN documented in this encounter Plan of Treatment Not on file documented as of this encounter Visit Diagnoses Diagnosis Rosacea Psoriasis Other psoriasis documented in this encounter Care Teams Yard Inspector Relationship Specialty Start Date End Date Esther Verma APRN [address] [place] [address] PCP - General Family Medicine 11/25/20 documented as of this encounter
--- OUTSIDE RECORDS SUMMARY | 2024-02-15 14:57 | XMS_ITS | Encounter Summary ---
[place] [address] Care Team Providers Care Reed Repairer Name Role Phone Heath Verma APRN Primary Care Provider [phone] Reason for Referral * Diagnostic Test (Routine) - Closed Specialty Diagnoses / Procedures Referred By Contac t Referred To Contact Diagnoses Pain in both lower legs Procedures SHARYN, legs, multiple levels Heath Verma APRN [address] [place] [address] [facility] Vascular Lab [address] [place] [phone] Referral ID Status Reason Start Date Expiration Date V isits Requested Visits Authorized [id number] Closed Specialty Service Requested 07/07/2021 07/07/2022 1 1 Reason for Visit * Diagnostic Test (Routine) - Closed Specialty Diagnoses / Procedures Referred By Contac t Referred To Contact Vascular Surgery Diagnoses Pain in leg, unspecified BILATERAL LEG PAIN Heath Verma APRN [address] [place] [address] [facility] Vascular Surg [address] [place] [phone] Referral ID Status Reason Start Date Expiration Date V isits Requested Visits Authorized [id number] Closed Test Only 06/19/2021 06/19/2022 1 1 Encounter Details Date Type Department Care Team (Late st Contact Info) Description 07/07/2021 11:00 AM EST Tech [place] [address] [place] Pain in both lower legs Social History Tobacco Use Types Packs/Day Years [...] Procedure Name Priority Date/Time Associated Diagnosis Comments PRG NON-INVASIVE PHYSIOLOGIC STUDY EXTREMITY ART 2 LEVEL Routine 07/07/2021 10:44 AM EST Pain in both lower legs documented in this encounter Results * SHARYN, legs, multiple levels (07/07/2021 10:44 AM EST) VB Text Report Department: Vascular Surgery Lab Patient: [id number] (EDWIGE BYERS) CPT: 68200 Referring Physician: HEATH VERMA ?? Phone: Indications: DM with bilateral leg pain. Diabetes mellitus: yes Findings: Right ?Pressure (mm Hg) ?? SHARYN ??Waveform ?TBI ?? Brachial Artery ?160 ? Common Femoral Artery ?Triphasic ? Popliteal Artery ? Triphasic ? Dorsalis Pedis (Ankle) Artery ?156 ? 0.98 ??Triphasic ? Posterior Tibial (Ankle) Artery ??160 ? 1.00 ??Triphasic ? Great Toe ?141 ?0.88 ?? Left ? Pressure (mm Hg) ?? SHARYN ??Waveform ?TBI ?? Brachial Artery ?155 ? Common Femoral Artery ?Triphasic ? Popliteal Artery ? Triphasic ? Dorsalis Pedis (Ankle) Artery ?165 ? 1.03 ??Triphasic ? Posterior Tibial (Ankle) Artery ??165 ? 1.03 ??Triphasic ? Great Toe ?125 ?0.78 ?? Interpretation: RIGHT: No significant lower extremity arterial occlusive disease identifiable at rest. Normal ankle/brachial pressure ratios and ankle Doppler waveforms. LEFT: No significant lower extremity arterial occlusive disease identifiable at rest. Normal ankle/brachial pressure ratios and ankle Doppler waveforms. Note: Patient has severe A-fib which causes several of the Doppler waveforms to look abnormal. Comparison: ??No previous study in our vascular lab database for comparison. Electronically Signed by: TETO HODGSON on 2021-07-13 06:59:53 AM VASCUBASE VB Text Report End of Report VASCUBASE 07/07/2021 10:4 4 AM EST Heath Verma APRN VASCULAR ORDERABLES VASCUBASE documented in this encounter Visit Diagnoses Diagnosis Pain in both lower legs documented in this encounter Care Teams Reed Repairer Relationship Specialty Start Date End Date Heath Verma APRN [address] [place] [address] PCP - General Family Medicine 11/25/20 documented as of this encounter
--- OUTSIDE RECORDS SUMMARY | 2024-02-15 14:57 | XMS_ITS | Clinical Summary ---
Author Organization [facility] Address [facility] [place] [address] Care Team Providers Care Business Performance Analyst Name Role Phone Esther Verma APRN Primary Care Provider [phone] Allergies Active Allergy Reactions Criticality Noted Date Comments Erythromycin Base CIS - Unknown Sulfa (Sulfonamide Antibiotics) Medications Medication Sig Dispensed Refills Start Date End Date Status cholecalciferol, Vitamin D3, 400 unit tablet 400 UNIT = 1 Tablet(s), PO, Three times daily 12/23/2009 Active calcium carbonate (OS-NATALIIA) 500 mg (1,250 mg) tablet 500 MG = 1 Tablet(s), PO, Three times daily 12/23/2009 Active clobetasol (TEMOVATE) 0.05 % cream Apply topically 2 times daily. Active metoprolol succinate (TOPROL-XL) 100 mg Tablet Sustained Release 24 hr Take 100 mg by mouth daily. Active nitroGLYcerin (NITROSTAT) 0.4 mg Tablet, Sublingual Place 1 tablet under the tongue every 5 minutes as needed for Chest pain. 90 tablet 12 10/01/2014 Active Eliquis 5 mg Tablet TAKE ONE TABLET BY MOUTH TWICE A DAY 10/30/2020 Active betamethasone valerate (VALISONE) 0.1 % Ointment APPLY TOPICALLY TWICE A DAY TO THE EARS 08/22/2020 Active freestyle lite strips TEST 3 TIMES DAILY 09/07/2020 Active calcium carbonate (Tums) 200 mg calcium (500 mg) Tablet, Chewable Take 1 tablet by mouth 4 times daily as needed. Active furosemide (Lasix) 40 mg Tablet TAKE ONE TABLET BY MOUTH EVERY DAY 11/01/2020 Active gabapentin (Neurontin) 100 mg Capsule TAKE TWO CAPSULES BY MOUTH AT BEDTIME 09/03/2020 Active NovoLIN N Flexpen Insulin Pen INJECT 15 UNITS UNDER THE SKIN EVERY DAY 11/18/2020 Active insulin regular human Solution Inject 15 Units subcutaneously. 05/28/2020 Active montelukast (Singulair) 10 mg Tablet TAKE ONE TABLET BY MOUTH EVERY DAY 10/30/2020 Active BD Ultra-Fine Short Pen Needle 31 gauge x 5/16 Needle INJECT SUBCUTANEOUSLY DAILY DIRECTED 09/09/2020 Active lisinopriL (Prinivil;Zestril ) 5 mg Tablet TAKE ONE TABLET BY MOUTH EVERY DAY 11/01/2020 Active Active Problems Problem Noted Date Diagnosed Date Depression 10/01/2014 Hx MO 10/01/2014 Former smoker 10/01/2014 PAF (paroxysmal atrial fibrillation) 10/01/2014 History of hypercalcemia 10/01/2014 CKD (chronic kidney disease) 10/01/2014 Impaired fasting glucose 10/01/2014 Metabolic syndrome 10/01/2014 hx hepatitis, unspecified 10/01/2014 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 Anxiety 02/04/2009 CIS - osteopenia 09/04/2008 Hyperparathyroidism 08/22/2008 Overview (09/22/2010): Previous calcium ranged 9.5-10.6 before with a bit low phos 2.1-2.4 and normal Mg 1.2 Lab 08/22/08: PTH 103, Ca 11.7, BUN/Cr 22/1.1 and 24h urine calcium was high at 314 (09/09/08) Lab 09/19/08: Ca 10.5 Lab 12/30/08: Ca 11.2, BUN/Cr 18/1.1, TSH 0.45 Lab 02/20/09-pending PTH 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 RV nl. No valve dz. Dyslipidemia 07/05/2002 Overview (09/22/2010): Lab 07/02/08: TC 179, LDL 105, HDL 35, TG 194 Lab 09/19/08: TC 123, LDL 72, HDL 44, TG 100 HTN (hypertension) 05/16/2002 Immunizations Name Administration Dates Next Due Influenza Vaccine, Whole 04/09/2009,03/18/2008 Pneumococcal Polysaccharide (Pneumovax 23) 04/09 Social History Tobacco Use Types Packs/Day Years Used Date Smoking Tobacco: Former Cigarettes Q uit: 10/01/2004 Smokeless Tobacco: Never Alcohol Use Standard Drinks/Week Comments No 0 (1 standard drink = 0.6 oz pur e alcohol) Sex and Gender Information Value Date Recorded Sex Assigned at Not on file Gender Identity Not on file Sexual Orientation Not on file Last Filed Vital Signs Vital Sign Reading Time Taken Comments Blood Pressure 162/73 10/01/2014 8:55 PM EDT Pulse 78 10/01/2014 8:55 PM EDT Temperature 37 ??C (98.6 ??F) 10/01/2014 7:10 PM EDT Respiratory Rate 18 10/01/2014 7:10 PM EDT Oxygen Saturation 96% 10/01/2014 7:10 PM EDT Inhaled Oxygen Concentration - - Weight 84.7 kg (186 lb 11.7 oz) 015 11:27 AM EDT Height 160 cm (5' 3) 10/01/2014 11:27 AM EDT Body Mass Index 33.08 10/01/2014 11:27 AM EDT Plan of Treatment Health Maintenance Due Date Last Done Comments CT Colonography 1950 Colonoscopy 1950 Colorectal Cancer Screening 1950 FIT DNA 1950 FIT 1950 Sigmoidoscopy (10 year) with FIT yearly 1950 Sigmoidoscopy 1950 Hepatitis C Screening 1968 Lipid Screening 1968 Tdap adult 1969 Tetanus vaccine 1969 Breast Cancer Share Decision Needed 1990 Breast Cancer screening 1990 Pre-DM monitoring (HgbA1C or FBG) 1990 Zoster vaccine (1 of 2) 2000 Pneumoccocal Vaccine: 65+ (2 of 2 - PCV) 04/09/2010 04/09/2009 Bone Density Scan 11/28/2015 Covid-19 Vaccine (1 - 2022-24 season) 2023 Influenza (Flu) vaccine (1 o f 1 - Influenza standard series) 03/18/2024 04/09/2009, 03/18/2008 Advance Directives Documents on File Type Date Recorded Patient Analytics Specialist Expl anation Advance Directives and Livin g Will 09/16/2010 10:17 AM * Full Code (Latest Code Status on File) Date Activated Date Inactivated Comments 10/01/2014 2:54 PM 10/02/2014 12:13 AM Question Answer Comments Order Status: Initial Order Does patient have decision m aking capacity? Yes, Order is based on Patients wishes. Care Teams Business Performance Analyst Relationship Specialty Start Date End Date Esther Verma APRN [address] [place] [address] PCP - General Family Medicine 11/25/20
--- OUTSIDE RECORDS SUMMARY | 2024-02-15 14:57 | XMS_ITS | Encounter Summary ---
[place] [address] Care Team Providers Care Spring Former Hand Name Role Phone Esther Verma APRN Primary Care Provider [phone] Encounter Details Date Type Department Care Team (Late st Contact Info) Description 05/13/2022 12:05 AM EDT Ancillary Procedure [place] [address] Esther Verma APRN [address] [place] [address] Social History Tobacco Use Types Packs/Day Years [...] Associated Diagnosis Comments FILM LIBRARY STORAGE ONLY CT CHEST Routine 05/13/2022 12:05 AM EDT documented in this encounter Results * Film Library- Storage Only CT Chest (05/13/2022 12:05 AM EDT) Narrative [facility] - 09/02/2022 11:35 AM EST This exam is auto-finalizing. It's purpose is for storage only. Esther Verma APRN [facility] FILM LIBRARY ORD ERABLES DH [place], [place] documented in this encounter Visit Diagnoses Not on filedocumented in this encounter Care Teams Spring Former Hand Relationship Specialty Start Date End Date Esther Verma APRN [address] [place] [address] PCP - General Family Medicine 11/25/20 documented as of this encounter
--- OUTSIDE RECORDS SUMMARY | 2024-02-15 14:57 | XMS_ITS | Encounter Summary ---
Author Organization [facility] [place] [address] Care Team Providers Care Llama Farmer Name Role Phone Esther Verma APRN Primary Care Provider [phone] Encounter Details Date Type Department Care Team (Late st Contact Info) Description 08/23/2022 Ancillary Procedure [place] [phone] Esther Verma APRN [address] [place] [address] Social History Tobacco Use Types Packs/Day Years [...] FILM LIBRARY STORAGE ONLY DX CHEST Routine 08/23/2022 12:00 AM EST documented in this encounter Results * Film Library- Storage Only DX Chest (08/23/2022 12:00 AM EST) Narrative [facility] - 09/02/2022 11:36 AM EST This exam is auto-finalizing. It's purpose is for storage only. Esther Verma APRN IMG FILM LIBRARY ORD ERABLES DH RAD [place], [place] documented in this encounter Visit Diagnoses Not on filedocumented in this encounter Care Teams Llama Farmer Relationship Specialty Start Date End Date Esther Verma APRN [address] [place] [address] PCP - General Family Medicine 11/25/20 documented as of this encounter
--- OUTSIDE RECORDS SUMMARY | 2024-02-15 14:57 | XMS_ITS | Encounter Summary ---
Author Organization [facility] [place] [address] Care Team Providers Care Global Upstream Marketing Manager Name Role Phone Esther Verma APRN Primary Care Provider [phone] Encounter Details Date Type Department Care Team (Late st Contact Info) Description 05/13/2022 Ancillary Procedure [place] [phone] Maribel Dacosta MD [address] [place] [address] Social History Tobacco Use Types Packs/Day Years [...] LIBRARY STORAGE ONLY CT CHEST Routine 05/13/2022 12:00 AM EDT documented in this encounter Results * Film Library- Storage Only CT Chest (05/13/2022 12:00 AM EDT) Narrative [facility] - 07/13/2022 11:42 AM EST This exam is auto-finalizing. It's purpose is for storage only. Maribel Dacosta MD IM FILM LIBRARY ORD ERABLES [place], [place] documented in this encounter Visit Diagnoses Not on filedocumented in this encounter Care Teams Global Upstream Marketing Manager Relationship Specialty Start Date End Date Esther Verma APRN [address] [place] [address] PCP - General Family Medicine 11/25/20 documented as of this encounter
--- OUTSIDE RECORDS SUMMARY | 2024-02-15 14:57 | XMS_ITS | Encounter Summary ---
Author Organization [facility] [place] [address] Care Team Providers Care Fruit Distributor Name Role Phone Esther Verma APRN Primary Care Provider [phone] Encounter Details Date Type Department Care Team (Latest Contact Info) Description 07/13/2022 Travel Social History Tobacco Use Types Packs/Day Years [...] documented as of this encounter Visit Diagnoses Not on filedocumented in this encounter Care Teams Fruit Distributor Relationship Specialty Start Date End Date Esther Verma APRN [address] [place] [address] PCP - General Family Medicine 11/25/20 documented as of this encounter
--- OUTSIDE RECORDS SUMMARY | 2024-02-15 14:57 | XMS_ITS | Encounter Summary ---
[place] [address] Care Team Providers Care Quality Control Representative Name Role Phone Esther Verma APRN Primary Care Provider [phone] Reason for Referral * Diagnostic Test (Routine) - Closed Specialty Diagnoses / Procedures Referred By Contac t Referred To Contact Radiology Diagnoses Lung nodule Procedures NM PET CT Skull Base to Mid-thigh Maribel Dacosta MD [address] [place] [address] [place] [address] Referral ID Status Reason Start Date Expiration Date V isits Requested Visits Authorized [id number] Closed Specialty Service Requested 06/16/2022 12/15/2023 1 1 Reason for Visit * Diagnostic Test (Routine) - Closed Specialty Diagnoses / Procedures Referred By Contac t Referred To Contact Radiology Diagnoses Lung nodule Procedures NM PET CT Skull Base to Mid-thigh Maribel Dacosta MD [address] [place] [address] [place] [address] Referral ID Status Reason Start Date Expiration Date V isits Requested Visits Authorized [id number] Closed Specialty Service Requested 06/16/2022 12/15/2023 1 1 Encounter Details Date Type Department Care Team (Latest Contact Info) Description 07/13/2022 8:10 AM EST Hospital Encounter [place] [address] Maribel Dacosta MD [address] [place] [address] Lung nodule Discharge Disposition: Home Social History Tobacco Use [...] Routine 07/13/2022 9:42 AM EST Lung nodule documented in this encounter Results * NM PET CT Skull Base to Mid-thigh (07/13/2022 9:42 AM EST) Anatomical Region Laterality Modality Positron Emissio n Tomography (PET) Impressions 07/13/2022 12:08 PM EST 1. ??22 mm FDG avid pleural-based nodule in the posterior right upper lobe, unchanged in size compared to CT of 05/13/2022 and highly suspicious for primary lung malignancy. 2. ??Two CT visualized ill-defined groundglass opacities in the inferior right upper lobe are unchanged compared to CT chest of 05/13/2022. These are indeterminate and could represent the sequela of a prior inflammatory process, however, an indolent-type lung malignancy such as adenocarcinoma in situ cannot be excluded. 3. ??No evidence of regional lupillo or distant sites of metastasis. Thank you for letting us participate in the care of this patient. ??If you are a health care provider and have any questions regarding this report, please contact the number below. ??For patients who have questions please contact the health child care aide that requested your imaging first. ? Narrative 07/13/2022 12:08 PM EST EXAMINATION: NM PET CT STANDARD SKULL BASE TO MID-THIGH CLINICAL HISTORY: lung nodule less than 3 cm; initial treatment evaluation. TECHNIQUE: Following IV injection of 14-dfyghl-1-deoxyglucose (FDG) a standard uptake of approximately 60 minutes, a noncontrast CT scan followed by a PET scan were acquired from the base of the skull to mid thighs. The noncontrast CT was used for anatomic localization and photon attenuation correction of the PET scan. Blood glucose level: 141 (mg/dL) FDG dose: 12.6 mCi COMPARISON: Outside CT chest 05/13/2022 FINDINGS: HEAD/NECK: Normal activity in all soft tissue regions of the neck and visualized lower head. No adenopathy. CHEST: 22 mm FDG avid pleural-based nodule in the posterior right upper lobe (axial image 82), unchanged in size compared to CT of 05/13/2022. CT visualized small ill-defined groundglass opacity in the inferior right upper lobe adjacent to the minor fissure (axial image 103), unchanged compared to CT of 05/13/2022. Additional non-FDG avid ill-defined approximately 2 cm groundglass opacity in the inferior right upper lobe (axial image 95), unchanged compared to CT of 05/13/2022. No significant adenopathy. Aortic and multivessel coronary artery calcifications. ABDOMEN/PELVIS: Normal activity in all soft tissue regions. No adenopathy. Large right lower pole simple renal cyst. Small nonobstructing left lower pole renal calculus. SKELETON/EXTREMITIES: Normal activity in all regions of the axial and visualized appendicular skeleton. Procedure Note Luis Ram MD - 07/13/2022 EXAMINATION: NM PET CT STANDARD SKULL BASE TO MID-THIGH CLINICAL HISTORY: lung nodule less than 3 cm; initial treatmentevaluation. TECHNIQUE: Following IV injection of 58-xipobh-3-deoxyglucose (FDG) astandard uptake of approximately 60 minutes, a noncontrast CT scan followed by aPET scan were acquired from the base of the skull to mid thighs. The noncontrast CTwas used for anatomic localization and photon attenuation correction of thePET scan. Blood glucose level: 141 (mg/dL) FDG dose: 12.6 mCi COMPARISON: Outside CT chest 05/13/2022 FINDINGS: HEAD/NECK: Normal activity in all soft tissue regions of the neck and visualizedlower head. No adenopathy. CHEST: 22 mm FDG avid pleural-based nodule in the posterior right upper lobe(axial image 82), unchanged in size compared to CT of 05/13/2022. CT visualized small ill-defined groundglass opacity in the inferior rightupper lobe adjacent to the minor fissure (axial image 103), unchanged comparedto CT of 05/13/2022. Additional non-FDG avid ill-defined approximately 2 cm groundglass opacityin the inferior right upper lobe (axial image 95), unchanged compared to CTof 05/13/2022. No significant adenopathy. Aortic and multivessel coronary artery calcifications. ABDOMEN/PELVIS: Normal activity in all soft tissue regions. No adenopathy. Large rightlower pole simple renal cyst. Small nonobstructing left lower pole renalcalculus. SKELETON/EXTREMITIES: Normal activity in all regions of the axial and visualized appendicular skeleton. IMPRESSION 1. 22 mm FDG avid pleural-based nodule in the posterior right upperlobe, unchanged in size compared to CT of 05/13/2022 and highly suspicious forprimary lung malignancy. 2. Two CT visualized ill-defined groundglass opacities in the inferiorright upper lobe are unchanged compared to CT chest of 05/13/2022. These are indeterminate and could represent the sequela of a prior inflammatoryprocess, however, an indolent-type lung malignancy such as adenocarcinoma in situcannot be excluded. 3. No evidence of regional lupillo or distant sites of metastasis. Thank you for letting us participate in the care of this patient. If youare a health care provider and have any questions regarding this report,please contact the number below. For patients who have questions please contactthe health child care aide that requested your imaging first. Maribel Dacosta MD IMG PET ORDERABLES documented in this encounter Visit Diagnoses Diagnosis Lung nodule Solitary pulmonary nodule documented in this encounter Administered Medications Inactive Administered Medications - up to 3 most recent administrations Medication Order MAR Action Action Date Dose Rate Site fludeoxyglucose (F-18) FDG injection 0-20 mCi 0-20 mCi, Intravenous, ONCE PRN, 1 dose, Starting on Tue07/13/22 at 0830, Until Tue07/13/22 at 0827, Per Protocol, Radiology Contrast, Routine Given 07/13/2022 8:27 AM EST 12.6 mCi Right Arm documented in this encounter Care Teams Quality Control Representative Relationship Specialty Start Date End Date Esther Verma APRN [address] [place] [address] PCP - General Family Medicine 11/25/20 documented as of this encounter
--- OUTSIDE RECORDS SUMMARY | 2024-02-15 14:58 | XMS_ITS | Clinical Summary ---
Author Organization [facility] Address [address] [place] [address] Care Team Providers Care Training And Development Project Leader Name Role Phone Esther Verma Primary Care Provider [phone] Pj Bourne MD Unavailable [phone] Allergies Active Allergy Reactions Criticality Noted Date Comments Erythromycin Nausea And Vomiting Low 03/28/2020 Gabapentin 03/28/2020 ineffective Other - See Comments Rash Low 07/26/2022 Ct dye Clopidogrel 03/28/2020 Pseudoephedrine Hcl Low 03/28/2020 Sulfa (Sulfonamide Antibiotics) 03/28/2020 Does not remember Medications Medication Sig Dispensed Refills Start Date End Date Status ELIQUIS 5 mg tablet Take 1 Tablet by mouth 2 times daily. 03/01/2020 Active montelukast (SINGULAIR) 10 mg tablet Take 1 Tablet by mouth daily. 02/22/2020 Active metoprolol XL (TOPROL-XL) 100 mg tablet Take 1 Tablet by mouth daily. 150 mg total Active HUMULIN N NPH INSULIN KWIKPEN 100 unit/mL (3 mL) injectable pen Inject 15 Units into the skin daily. Reprots taking 18 units 03/25/2020 Active nitroGLYCERIN (NITROSTAT) 0.[address] 1 Tablet under the tongue every 5 minutes as needed for Chest Pain. Active calcium carbonate (TUMS) 200 mg calcium (500 mg) tablet,chewable Take 1 Tablet by mouth daily. Active betamethasone valerate (VALISONE) 0.1 % ointment Apply topically if needed. Active ergocalciferol, vitamin D2, (VITAMIN D ORAL) Take by mouth. Acti ve tiotropium bromide (SPIRIVA RESPIMAT INHALATION) Inhale 2 Puffs as directed daily. Active insulin aspart (NOVOLOG FLEXPEN U-100 INSULIN SUBQ) Inject into the skin. 23 mg Active liraglutide (VICTOZA) 0.6 mg/0.1 mL (18 mg/3 mL) injectable pen Inject 1.8 mg into the skin daily. Active VITAMIN B COMPLEX ORAL Take by mouth. Active BD ULTRA-FINE SHORT PEN NEEDLE Use 1 pen needle as directed 2 times daily. 06/17/2022 Active FREESTYLE LITE STRIPS test strips USE TO TEST TWO TIMES A DAY 11/18/2022 Active fluorouracil (EFUDEX) 5 % cream APPLY ONE APPLICATION TOPICALLY TWO TIMES A DAY FOR 3 WEEKS 06/08/2023 Active dilTIAZem (CARDIZEM CD) 240 mg ER capsule Take 1 Capsule by mouth daily. 06/21/2023 Active lisinopriL (PRINIVIL) 10 mg tablet Take 1 Tablet by mouth daily. 07/06/2023 Active metoprolol SUCCinate (TOPROL-XL) 50 mg tablet Take 1 Tablet by mouth daily. 150 mg daily 05/31/2023 Active torsemide (DEMADEX) 20 mg tablet Take 2 Tablets by mouth daily. Active furosemide (LASIX) 20 mg tablet Take 1 Tablet by mouth daily. 01/25/2020 02/14/2024 Discontinued (Alternate therapy) lisinopriL (PRINIVIL) 5 mg tablet Take 1 Tablet by mouth daily. 03/01/2020 02/14/2024 Discontinued (Dose adjustment) aspirin chewable 81 mg tablet Take 1 Tablet by mouth daily. 02/14/2024 Discontinued (Alternate therapy) dilTIAZem (TIAZAC) 120 mg SR capsule Take by mouth daily. 05/21/2022 02/14/2024 Discontinued (Dose adjustment) furosemide (LASIX) 40 mg tablet TAKE ONE AND ONE-HALF TABLETS BY MOUTH EVERY MORNING 06/28/2023 02/14/2024 Discontinued (Alternate therapy) Active Problems Problem Noted Date Diagnosed Date Nontoxic multinodular goiter 08/04/2023 Diabetes ([facility]) 05/16/2023 Primary cancer of right upper lobe of lung ([facility]) 07/26/2022 Cancer Staging:Clinical:Stage IA2(cT1b, cN0, cM0) - Signed by Pj Bourne MD on 09/13/2022 Overview: Added automatically from request for surgery [id number] Resolved Problems Problem Noted Date Diagnosed Date Resolved Date Malignant neoplasm of upper lobe, right bronchus or lung (HCC-CMS) 10/18/2022 11/11/2022 Encounters Date Type Department Care Team Description 02/14/2024 13:[address] [facility] [address] [place] [address] Taj Lei MD Permanent atrial fibrillation (HCC-CMS) (Primary Dx); Current use of fdc anticoagulation; ACC/AHA stage C heart failure with preserved ejection fraction ([facility]-CMS); Diabetes mellitus type 2, insulin dependent ([facility]-CMS); Essential hypertension 01/25/[address] [facility] Pathology & Laboratory Medicine - [address] [id number] Outr Resulting Lab, Provider 12/17/[address] [facility] Endocrinology - [address] [phone] Ragini Pérez DO 12/02/2023 10:30 EDT Office Visit [facility] Radiation Oncology - [address] [address] Pj Bourne MD Thyroid nodule (Primary Dx); History of lung cancer 12/02/2023 8:17 EDT - 12/02/2023 23:59 EDT [facility] Rad[facility] - [address] [address] Primary cancer of right upper lobe of lung ([facility]-CMS) Discharge Disposition: Home or Self Care from Last 3 Months Surgical History Surgery Date Site/Laterality Comments CARDIAC CATHERIZATION 07/18/2014 - 07/17/2015 MAYCOL's, patent stents CORONARY ANGIOPLASTY 07/18/2007 - 07/17/2008 RCA TUMOR REMOVAL 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 Medical History Medical History Date Comments Diabetes mellitus (HCC-CMS) Type 2 Arrhythmia A-Fib CHF (congestive heart failure) (HCC-CMS) COPD (chronic obstructive pulmonary disease) (HC C-CMS) JESICA (obstructive sleep apnea) Hypertension Chronic kidney disease CAD (coronary artery disease) Social History Tobacco Use Types Packs/Day Years Used Date Smoking Tobacco: Former Cigarettes Q uit: 07/28/2009 Smokeless Tobacco: Never Tobacco Cessation:Counseling Given: Not Answered Alcohol Use Standard Drinks/Week Comments Not Currently 0 (1 standard drink = 0.6 oz pur e alcohol) Interpersonal Safety Answer Date Record ed Physically Hurt Never 02/17/2020 Verbally Threaten Not on file 02/17/2020 Sex and Gender Information Value Date Recorded Sex Assigned at Not on file Gender Identity Not on file Sexual Orientation Not on file Obstetrics History Last Filed Vital Signs Vital Sign Reading Time Taken Comments Blood Pressure 120/72 02/14/2024 1331 EDT Pulse 75 02/14/2024 1331 EDT Temperature 36.2 ??C (97.1 ??F) 12/02/2023 1030 EDT Respiratory Rate 16 09/13/2022 1447 EST Oxygen Saturation 94% 02/14/2024 1331 EDT Inhaled Oxygen Concentration - - Weight 83.9 kg (185 lb) 02/14/2024 1331 EDT Height 160.8 cm (5' 3.31) 02/14/2024 1331 EDT Body Mass Index 32.45 02/14/2024 1331 EDT Plan of Treatment Upcoming Encounters Date Type Department Care Team (Late st Contact Info) Description 06/08/2024 13:30 EST Appointment [facility] Radiology [facility] Outpatient - [address] [id number] 06/08/2024 14:30 EST Office Visit [facility] Radiation Oncology - [address] [phone] Pj Bourne MD [address] [place] [address], [address] [place] [phone] Health Maintenance Due Date Last Done Comments Eye Exam 1950 Foot Exam 1950 Hemoglobin A1C (Ha1C) 1950 Hepatitis C Screen 1950 Microalbumin/Creatinine Ratio 1950 Lipid Profile Screening (Cholesterol) 1953 COVID-19 Vaccine (#1) 11/28/1955 RSV Immunization ( o r 60+ Years) (1 - 1-dose 60+ series) 2010 Fall Risk Screening 05/02/2024 05/02/2023 Procedures Procedure Name Priority Date/Time Associated Diagnosis Comments ECG REPORT - SCANNED 02/14/2024 14:16 EDT EKG 12-LEAD Routine 02/14/2024 13:44 EDT Permanent atrial fibrillation (HCC-CMS) PTH INTACT Routine 01/25/2024 10:[address] CHEST WO CONTRAST Routine 12/02/2023 8:35 EDT 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-CMS) from Last 3 Months Results * ECG REPORT - SCANNED (02/14/2024 14:16 EDT) 02/14/2024 14:1 6 EDT Scan 2 Bi Architect PROCEDURE/MINOR [place] GICAL ORDERABLES * EKG 12-LEAD (02/14/2024 13:44 EDT) 02/14/2024 13:4 4 EDT Narrative [facility] - 02/14/2024 13:50 EDT ? CVC ? Test Date: ?2024-02-14 Pat Name: ? EDWIGE SEGALCHITO ? Department: ? Room: ? Gender: ? Female ? Leveling Machine Operator: ?? sal : ?1950 ? Requested By: DO VANG Order Number: [id number] ? Reading MD: ?? TAJ LEI MD ? Measurements Intervals ?[place] ? Rate: ? 75 ? P: ?0 [place]: ? 0 ?QRS: ?73 QRSD: ? 84 ? T: ?182 QT: ? 410 ? QTc: ?457 ? Interpretive Statements Atrial fibrillation Nonspecific ST and T wave abnormality No previous ECG available for comparison I reviewed the tracing and have either agreed or edited the findings in this report. Electronically Signed On 02-14-2024 13:50:03 EDT by TAJ LEI MD. Procedure Note Taj Lei MD - 02/14/2024 CVC Test Date: 2024-02-14 Pat Name: EDWIGE BYERS Department: Room: Gender: Female Leveling Machine Operator: sal : 1950 Requested By: DO VANG Order Number: [id number] Reading MD: TAJ LEI MD Measurements Intervals [place] Rate: 75 P: 0 [place]: 0 QRS: 73 QRSD: 84 T: 182 QT: 410 QTc: 457 Interpretive Statements Atrial fibrillation Nonspecific ST and T wave abnormality No previous ECG available for comparison I reviewed the tracing and have either agreed or edited the findings inthis report. Electronically Signed On 02-14-2024 13:50:03 EDT by TAJ ZAMBRANO. Taj Lei MD CARDIAC ECG ORDERABL ES Performing Organization Address City/[facility]/ZIP Co de Phone Number [facility] * (ABNORMAL) PTH INTACT (01/25/2024 10:30 EDT) Intact PTH 104(H) 19 - 88 pg/mL 01/26/2024 8:32 EDT [facility] Blood VENOUS BLOOD / Unknown 01/25/2024 10:30 EDT 01/25/2024 21:59 EDT Provider Outr Resulting Lab CHEMISTRY & BLOOD GAS ORDERABLES Performing Organization Address City/[facility]/ZIP Co de Phone Number [facility] [address] [place] [phone] * CT CHEST WO CONTRAST (12/02/2023 8:35 EDT) Anatomical Region Laterality Modality Chest Computed Tomogra phy 12/02/2023 9:21 EDT Impressions 12/02/2023 9:21 EDT 1. ??Expected post radiation changes in the right upper lobe. 2. ??Multiple stable groundglass lesions within both lungs, continued long-term CT surveillance is needed. 3. ??Additional chronic findings above. [id number] Narrative 12/02/2023 9:[address] CHEST WO CONTRAST ??12/02/2023 8:23 AM Clinical History/Comments: Non-small cell lung cancer (NSCLC), non-metastatic, assess treatment response; With history of right upper lobe non-small cell lung cancer treated with stereotactic radiation November 2022. ??Question new or progressive disease, question treatment response.;C34.11: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-CMS) Technique: CT scan of the chest was performed without contrast material. Thin section reconstructions were performed. This CT used either dose modulation and/or iterative reconstruction techniques to lower radiation dose. Comparison: CT chest 05/16/2023 Findings: Lower neck: Multiple stable nodules within the thyroid. Mediastinum and carmen (non-vascular): No enlarged mediastinal or hilar lymph nodes. ??The esophagus appears normal. Cardiovascular: Atherosclerotic calcification within the coronary arteries and aorta. Severe coronary calcium. Left atrial enlargement. Lungs and airways: Treated nodule within the right upper lobe is now incorporated with an area of consolidation within the posterior aspect of the right apex (axial #121) with progressive volume loss in the area. There are additional regions of perilesional groundglass which likely reflect additional evolving post radiation changes. New 3 mm nodule more inferiorly (axial #151). Stable bandlike groundglass lesion within the more inferior aspect of the right upper lobe abutting the minor fissure (axial #264). There are a few additional smaller groundglass opacities in the right upper lobe. Linear region of scarring within the lingula. Stable 7 mm groundglass nodule within the left lower lobe (axial #284 with additional smaller nodule more centrally (axial #289). Emphysematous changes with an upper lobe predominant. Pleura: Right-sided pleural thickening adjacent to postradiation changes in the right apex. No pleural fluid. Upper abdomen (limited to upper abdomen, not optimized for abdominal imaging): Normal. Chest wall soft tissues: No abnormalities in the chest wall soft tissues. Bones: Status post sternotomy which is well-healed. Partial resection of the left fourth rib and stable postsurgical changes adjacent to the left T4 vertebra. Resulting Agency Comment [id number] Procedure Note Soy Goodman MD - 12/02/2023 CT CHEST WO CONTRAST 12/02/2023 8:23 AM Clinical History/Comments: Non-small cell lung cancer (NSCLC), non-metastatic, assess treatmentresponse; With history of right upper lobe non-small cell lung cancertreated with stereotactic radiation November 2022. Question new or progressivedisease, question treatment response.;C34.11:Primary cancer of right upperlobe of lung (HCC-CMS) Technique: CT scan of the chest was performed without contrast material. Thin sectionreconstructions were performed. This CT used either dose modulation and/or iterative reconstructiontechniques to lower radiation dose. Comparison: CT chest 05/16/2023 Findings: Lower neck: Multiple stable nodules within the thyroid. Mediastinum and carmen (non-vascular): No enlarged mediastinal or hilarlymph nodes. The esophagus appears normal. Cardiovascular: Atherosclerotic calcification within the coronary arteriesand aorta. Severe coronary calcium. Left atrial enlargement. Lungs and airways: Treated nodule within the right upper lobe is nowincorporated with an area of consolidation within the posterior aspect ofthe right apex (axial #121) with progressive volume loss in the area.There are additional regions of perilesional groundglass which likelyreflect additional evolving post radiation changes. New 3 mm nodule moreinferiorly (axial #151). Stable bandlike groundglass lesion within themore inferior aspect of the right upper lobe abutting the minor fissure(axial #264). There are a few additional smaller groundglass opacities inthe right upper lobe. Linear region of scarring within the lingula. Stable7 mm groundglass nodule within the left lower lobe (axial #284 withadditional smaller nodule more centrally (axial #289). Emphysematouschanges with an upper lobe predominant. Pleura: Right-sided pleural thickening adjacent to postradiation changesin the right apex. No pleural fluid. Upper abdomen (limited to upper abdomen, not optimized for abdominalimaging): Normal. Chest wall soft tissues: No abnormalities in the chest wall softtissues. Bones: Status post sternotomy which is well-healed. Partial resection ofthe left fourth rib and stable postsurgical changes adjacent to the leftT4 vertebra. IMPRESSION 1. Expected post radiation changes in the right upper lobe. 2. Multiple stable groundglass lesions within both lungs, continuedlong-term CT surveillance is needed. 3. Additional chronic findings above. [id number] Pj Bourne MD IMG CT ORDERABLES from Last 3 Months Care Teams Training And Development Project Leader Relationship Specialty Start Date End Date Esther Verma FNP [address] [place] [phone] PCP - General 07/27/22 Pj Bourne MD [address] [place] [address] [address] [place] [phone] Radiation Oncology 10/21/22
--- OUTSIDE RECORDS SUMMARY | 2024-02-15 14:58 | XMS_ITS | Encounter Summary ---
Author Organization [facility] Address [address] [place] [address] Care Team Providers Care Tearoom Hostess Name Role Phone Esther Verma Primary Care Provider Pj Bourne MD Unavailable [phone] Reason for Visit * Reason Onset Date Comments Appointment Related 11/14/2023 Encounter Details Date Type Department Care Team (Late st Contact Info) Description 11/14/2023 Telephone [facility] Endocrinology - [facility] [address] [place] [address] Ragini Pérez DO [address] [facility] [address] [place] [address] Appointment Related Social History Tobacco Use Types Packs/Day Years Used Date Smoking Tobacco: Former Cigarettes Q uit: 07/28/2009 Smokeless Tobacco: Never Alcohol Use Standard Drinks/Week Comments Not Currently 0 (1 standard drink = 0.6 oz pur e alcohol) Interpersonal Safety Answer Date Record ed Physically Hurt Never 02/17/2020 Verbally Threaten Not on file 02/17/2020 Sex and Gender Information Value Date Recorded Sex Assigned at Not on file Gender Identity Not on file Sexual Orientation Not on file documented as of this encounter Functional Status Functional Status Response Date of Assess ment Because of a physical, menta l, or emotional condition, does this person have difficulty doing errands alone such as visiting a doctor's office or shopping? No 03/28/2020 Cognitive Status Response Date of Assessm ent Because of a physical, menta l, or emotional condition, does this person have serious difficulty concentrating, remembering, or making decisions? No 03/28/2020 documented as of this encounter Miscellaneous Notes * Telephone Encounter - Melissa Alejandra - 11/14/2023 1453 EDT Left voicemail to schedule Follow Up appointment with:thyroid pathway Dr. Pérez patient Patient is due anytime after 04/15/24 Recall Letter Sent. Recall . documented in this encounter Plan of Treatment Upcoming Encounters Date Type Department Care Team (Late st Contact Info) Description 06/08/2024 13:30 EST Appointment [facility] Radiology CT Outpatient - [address] [phone] 06/08/2024 14:30 EST Office Visit [facility] Radiation Oncology - [address] [phone] Pj Bourne MD [address] [place] [phone] documented as of this encounter Visit Diagnoses Not on filedocumented in this encounter Care Teams Tearoom Hostess Relationship Specialty Start Date End Date Esther Verma FNP [address] [place] [phone] PCP - General 07/27/22 Pj Bourne MD [address] [place] [phone] Radiation Oncology 10/21/22 documented as of this encounter
--- OUTSIDE RECORDS SUMMARY | 2024-02-15 14:58 | XMS_ITS | Encounter Summary ---
Author Organization [facility] Address [address] [place] [address] Care Team Providers Care Charge Loader Name Role Phone Esther Verma EDWARD Primary Care Provider [phone] Cleve Farmer MD Unavailable [phone] Reason for Referral * Radiology Services (Routine/Next Available) - Receiving Office to Obtain Authorization Specialty Diagnoses / Procedures Referred By Chau car Referred To Contact Diagnoses History of lung cancer Procedures CT CHEST WO CONTRAST CT CHEST WO CONTRAST Cleve Farmer MD [address] [place] [phone] [facility] Referral ID Status Reason Start Date Expiration Date Visits Requested Visits Authorized [id number] Receiving Office to Obtain Authorization 12/02/2023 1 1 * Consult (Routine/Next Available) - Closed Specialty Diagnoses / Procedures Referred By Chau car Referred To Contact Endocrinology Diagnoses Thyroid nodule Cleve Farmer MD [address] [place] [phone] [facility] [address] [place] [address] Referral ID Status Reason Start Date Expiration Date V isits Requested Visits Authorized [id number] Closed Specialty Services Required 12/02/2023 1 1 Question Answer Reason for Request: Pt with 1.4 cmy thryoid nodule, bx has been attempted unable to obtain tissue. Pt [place] [facility] Reason for Visit * Reason Comments Lung Cancer Follow up Encounter Details Date Type Department Care Team (Late st Contact Info) Description 12/02/2023 10:30 EDT Office Visit [facility] Cancer Center Radiation Oncology - [address] [phone] Cleve Farmer MD [address] [place] [address], [facility], [address] [place] [phone] Thyroid nodule (Primary Dx); History of lung cancer Social History Tobacco Use Types Packs/Day Years [...] on file documented as of this encounter Last Filed Vital Signs Vital Sign Reading Time Taken Comments Blood Pressure 136/96 12/02/2023 1030 EDT Pulse 79 12/02/2023 1030 EDT Temperature 36.2 ??C (97.1 ??F) 12/02/2023 1030 EDT Respiratory Rate - - Oxygen Saturation 94% 12/02/2023 1030 EDT Inhaled Oxygen Concentration - - Weight 91.1 kg (200 lb 12.8 oz) 12/02/2023 1030 EDT Height 160.8 cm (5' 3.31) 12/02/2023 1030 EDT Body Mass Index 35.23 12/02/2023 1030 EDT documented in this encounter Functional Status Functional Status Response [...] No 03/28/2020 documented as of this encounter Progress Notes * Cleve Farmer MD - 12/02/2023 1030 EDT Division of Radiation Oncology FOLLOW-UP NOTE Date of Service: 12/02/2023 Diagnosis: Cancer Staging 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-CMS) Staging form: Lung, AJCC 8th Edition - Clinical: Stage IA2 (cT1b, cN0, cM0) - Signed by Cleve Farmer MD on 09/13/2022 Radiation Treatments Historical RUL SABR (Started on 11/08/2022) Most recent fraction: 1,100 cGy given on 11/17/2022 Total given: 5,500 cGy / 5,500 cGy (5 of 5 fractions) Elapsed Days: 9 Technique: SABR Impression: Patient with no clinical or radiographic evidence of disease. Patient reports that she had her thyroid nodule biopsied but this was unsuccessful due to technicalchallenges with the biopsy. Per the chart, endocrinology office reached out to schedule her for an appointment. The patient did not receive either the letter or the phone call. She prefers not to go back to [facility], and would prefer to go back to [facility]. She does have a 1.4 cmthyroid nodule. It appears to be stable on serial CT imaging. This probably does need to be addressed further, I am not sure of the right neck steps. To the patient's knowledge she is not a surgical candidate due to her chronic A-fib. I think she needs to see the drop count associate to outline the appro priate next steps. Recommendations: Follow-up in [address] chest and same day visit. Referral to [facility] [place] [place]. Continue follow-up with dermatology Subjective: Patient reports: She has ongoing significant neuropathy from her diabetes in both of her feet. She has ongoing shortness of breath and does not exert herself much because her level feet do not work well. She has no cough or hemoptysis. Her weight continues to increase and her appetite is too good. She has no fevers or chills. 12/02/2023 10:30 Pain Score (from Vitals) Initial score 8 Final score 8 Objective: Vitals: 12/02/23 1030 BP: (!) 136/96 Pulse: 79 Temp: 36.2 ??C (97.1 ??F) SpO2: 94% Weight: 91.1 kg (200 lb 12.8 oz) Height: 160.8 cm (63.31) Wt Readings from Last 3 Encounters: 12/02/23 91.1 kg (200 lb 12.8 oz) 08/29/23 88.9 kg (196 lb) 05/16/23 88.3 kg (194 lb 9.6 oz) Weight is increased. Patient has open papule on her nose, with somewhat purpleish discoloration along the tip of her nose. She reports that it is cancer, she is following up with a professor of exercise science and has been using a cream on it to help treat it. Imaging: CT CHEST WO CONTRAST 12/02/2023 8:23 AM IMPRESSION 1. Expected post radiation changes in the right upper lobe. 2. Multiple stable groundglass lesions within both lungs, continued long-term CT surveillance is needed. 3. Additional chronic findings above. I spent a total of 30 minutes on the date of this encounter meeting with the patient and reviewing documentation/coordinating care as described in the above note. No procedures were performed at the time of the visit. Cleve Farmer MD documented in this encounter Miscellaneous Notes * Addendum Note - Cleve Farmer MD - 12/02/2023 1030 EDTAddended by: CLEVE FARMER on: 12/09/2023 15:58 Modules accepted: Orders documented in this encounter Plan of Treatment Upcoming Encounters Date Type Department Care Team (Late st Contact Info) Description 06/08/2024 13:30 EST Appointment [facility] Radiology CT Outpatient - [address] [phone] 06/08/2024 14:30 EST Office Visit [facility] Cancer Center Radiation Oncology - [address] [phone] Cleve Farmer MD [address] [place] [phone] Scheduled Orders Name Type Priority Associated Diagnoses Orde r Schedule CT CHEST WO CONTRAST Imaging Routine History of lung cancer Expected: 05/18/2024 (Approximate), Expires: 06/10/2025 Scheduled Referrals Name Type Priority Associated Diagnoses Order Schedule AMB CONS/FOLLOW UP ENDOCRINOLOGY Outpatient Referral Routine/Next Available Thyroid nodule Expected: 01/02/2024 (Approximate), Expires: 12/01/2024 documented as of this encounter Visit Diagnoses Diagnosis Thyroid nodule- Primary Nontoxic uninodular goiter History of lung cancer Personal history of malignant neoplasm of bronchus and lung documented in this encounter Care Teams Charge Loader Relationship Specialty Start Date End Date Esther Verma FNP [address] [place] [phone] PCP - General 07/27/22 Cleve Farmer MD [address] [place] [phone] Radiation Oncology 10/21/22 documented as of this encounter
--- OUTSIDE RECORDS SUMMARY | 2024-02-15 14:58 | XMS_ITS | Encounter Summary ---
Author Organization [facility] Address [address] [place] [address] Care Team Providers Care Elevator Mechanic Name Role Phone Esther Verma Primary Care Provider [phone] Pj Bourne MD Unavailable [phone] Reason for Referral * Radiology Services (Routine/Next Available) - Authorization Not Required Specialty Diagnoses / Procedures Referred By Contac t Referred To Contact Diagnoses Thyroid nodule Procedures US SUBSPECIALTY RADIOLOGY CONSULT NEURO Stephania Munoz DO [address] [place] [phone] [facility] Referral ID Status Reason Start Date Expiration Date Visits Requested Visits Authorized [id number] Authorization Not Required 3 1 1 Reason for Visit * Radiology Services (Routine/Next Available) - Authorization Not Required Specialty Diagnoses / Procedures Referred By Contdakotah car Referred To Contact Diagnoses Thyroid nodule Procedures US SUBSPECIALTY RADIOLOGY CONSULT NEURO Stephania Munoz DO [address] [place] [phone] [facility] Referral ID Status Reason Start Date Expiration Date Visits Requested Visits Authorized [id number] Authorization Not Required 3 1 1 Encounter Details Date Type Department Care Team (Latest Contact Info) Description 05/16/2023 8:47 EDT - 05/16/2023 12:59 EDT Hospital Encounter [facility] [place] [address] Thyroid nodule Discharge Disposition: Home or Self Care Social History Tobacco Use Types Packs/Day Years [...] No 03/28/2020 documented as of this encounter Medications at Time of Discharge Medication Sig Dispensed Refills Start Date End Date BD ULTRA-FINE SHORT PEN NEEDLE Use 1 pen needle as directed 2 times daily. 06/17/2022 betamethasone valerate (VALISONE) 0.1 % ointment Apply topically if needed. calcium carbonate (TUMS) 200 mg calcium (500 mg) tablet,chewable Take 1 Tablet by mouth daily. ELIQUIS 5 mg tablet Take 1 Tablet by mouth 2 times daily. 03/01/2020 ergocalciferol, vitamin D2, (VITAMIN D ORAL) Take by mouth. FREESTYLE LITE STRIPS test strips USE TO TEST TWO TIMES A DAY 11/18/2022 HUMULIN N NPH INSULIN KWIKPEN 100 unit/mL (3 mL) injectable pen Inject 15 Units into the skin daily. Reprots taking 18 units 03/25/2020 insulin aspart (NOVOLOG FLEXPEN U-100 INSULIN SUBQ) Inject into the skin. 23 mg liraglutide (VICTOZA) 0.6 mg/0.1 mL (18 mg/3 mL) injectable pen Inject 1.8 mg into the skin daily. metoprolol XL (TOPROL-XL) 100 mg tablet Take 1 Tablet by mouth daily. 150 mg total montelukast (SINGULAIR) 10 mg tablet Take 1 Tablet by mouth daily. 02/22/2020 nitroGLYCERIN (NITROSTAT) 0.[address] 1 Tablet under the tongue every 5 minutes as needed for Chest Pain. tiotropium bromide (SPIRIVA RESPIMAT INHALATION) Inhale 2 Puffs as directed daily. VITAMIN B COMPLEX ORAL Take by mouth. aspirin chewable 81 mg tablet Take 1 Tablet by mouth daily. 02/14/2024 dilTIAZem (TIAZAC) 120 mg SR capsule Take by mouth daily. 05/21/20222023 furosemide (LASIX) 20 mg tablet Take 1 Tablet by mouth daily. 01/25/2020 02/14/2024 lisinopriL (PRINIVIL) 5 mg tablet Take 1 Tablet by mouth daily. 03/01/2020 02/14/2024 documented as of this encounter Discharge Disposition Disposition Code Departure Means Destination Home or Self Care documented in this encounter Plan of Treatment Upcoming Encounters Date Type Department Care Team (Late st Contact Info) Description 06/08/2024 13:30 EST Appointment [facility] Radiology CT Outpatient - [address] [phone] 06/08/2024 14:30 EST Office Visit [facility] Cancer Center Radiation Oncology - [address] [phone] Pj Bourne MD [address] [place] [address], [address] [place] [phone] documented as of this encounter Procedures Procedure Name Priority Date/Time Associated Diagnosis Comments US SUBSPECIALTY RADIOLOGY CONSULT NEURO Routine 05/16/2023 8:47 EDT Thyroid nodule documented in this encounter Results * US SUBSPECIALTY RADIOLOGY CONSULT NEURO (05/16/2023 8:47 EDT) Anatomical Region Laterality Modality Ultrasound 05/13/2023 15:0 2 EDT Impressions 05/16/2023 8:53 EDT 1. ??TI-RADS 5 nodule measuring 1.4 cm in the lower pole of the left thyroid lobe. Per TI-RADS guidelines, ultrasound-guided fine needle aspiration is recommended.. 2. ??TI-RADS 4 nodules measuring up to 1.3 cm in the mid-portion of the right thyroid lobe.. Per TI-RADS guidelines, follow-up with thyroid ultrasound is recommended in 1 year. 3. ??Subcentimeter TI-RADS 4 nodule in the upper pole of the left thyroid lobe. Per TI-RADS guidelines, no follow-up is warranted. REFERENCE: Kianna FN, Rukhsana WD, Julito EG, et al. ACR Thyroid Imaging, Reporting and Data System (TI-RADS): White Paper of the ACR TI-RADS Committee. J Am Reji Radiol. 2017 November;14(5):587-595 [id number] Narrative 05/16/2023 8:53 EDT ULTRASOUND - RADIOLOGY CONSULTATION EXAM: Thyroid Ultrasound performed at outside facility on 01/17/2023. ORIGINAL PATIENT NAME: Edwige Davis PATIENT DATE OF : 1950 ORDERING PROVIDER: Stephania Munoz DO Radiology Consultation interpretation performed at [facility] on 05/13/2023. HISTORY/ REASON FOR RADIOLOGY CONSULTATION: Evaluation for possible biopsy.. Thyroid nodule(s) COMPARISONS: FDG-PET/CT from 07/13/2022 TECHNIQUE: Thyroid ultrasound was performed. Both still images and cine sweeps are provided for review. FINDINGS: THYROID PARENCHYMA: Homogeneous RIGHT THYROID LOBE: 4.1 x 1.7 x 2.1 cm LEFT THYROID LOBE: 4.1 x 1.5 x 1.6 cm THYROID ISTHMUS: 0.3 cm CERVICAL LYMPH NODES: Not imaged. NODULES: Thyroid nodules as outlined below. ? Nodule 1 ?Location: Mid-portion of the right thyroid lobe. ?Size: 1.3 x 1.2 x 0.7 cm. ?Composition: ??Solid (2 points) ?Echogenicity: ??Hypoechoic (2 points) ?Shape: Zrqxd-tqrf-mveu (0 points) ?Margin: ??Smooth (0 points) ?Echogenic Foci: ??No echogenic foci (0 points) ?TI-RADS category: TR 4 (4-6 points) ? Nodule 2 ?Location: Mid-portion of the right thyroid lobe. ?Size: 1.1 x 0.7 x 0.6 cm. ?Composition: ??Almost completely solid (2 points) ?Echogenicity: ??Hypoechoic (2 points) ?Shape: Ctprq-ryrx-njbf (0 points) ?Margin: ??Smooth (0 points) ?Echogenic Foci: ??No echogenic foci (0 points) ?TI-RADS category: TR 4 (4-6 points) ? Nodule 3 ?Location: Lower pole of the left thyroid lobe. ?Size: 1.4 x 1.3 x 1.1 cm. ?Composition: ??Solid (2 points) ?Echogenicity: ??Very hypoechoic (3 points) ?Shape: Ixdffp-zhmo-qjhx (3 points) ?Margin: ??Ill-defined (0 points) ?Echogenic Foci: ??Macrocalcifications (1 point) ?TI-RADS category: TR 5 (7+ points) ? Nodule 4 ?Location: Upper pole of the left thyroid lobe. ?Size: 0.7 x 0.4 x 0.3 cm. ?Composition: ??Solid (2 points) ?Echogenicity: ??Hypoechoic (2 points) ?Shape: Pdnyi-uefm-ywgn (0 points) ?Margin: ??Smooth (0 points) ?Echogenic Foci: ??No echogenic foci (0 points) ?TI-RADS category: TR 4 (4-6 points) Procedure Note Marcus Garcia MD - 05/16/2023 ULTRASOUND - RADIOLOGY CONSULTATION EXAM: Thyroid Ultrasound performed at outside facility on 01/17/2023. ORIGINAL PATIENT NAME: Edwige Davis PATIENT DATE OF : 1950 ORDERING PROVIDER: Stephania Munoz DO Radiology Consultation interpretation performed at [facility] on 05/13/2023. HISTORY/ REASON FOR RADIOLOGY CONSULTATION: Evaluation for possiblebiopsy.. Thyroid nodule(s) COMPARISONS: FDG-PET/CT from 07/13/2022 TECHNIQUE: Thyroid ultrasound was performed. Both still images and cinesweeps are provided for review. FINDINGS: THYROID PARENCHYMA: Homogeneous RIGHT THYROID LOBE: 4.1 x 1.7 x 2.1 cm LEFT THYROID LOBE: 4.1 x 1.5 x 1.6 cm THYROID ISTHMUS: 0.3 cm CERVICAL LYMPH NODES: Not imaged. NODULES: Thyroid nodules as outlined below. Nodule 1 Location: Mid-portion of the right thyroid lobe. Size: 1.3 x 1.2 x 0.7 cm. Composition: Solid (2 points) Echogenicity: Hypoechoic (2 points) Shape: Tgicx-gvac-rzdh (0 points) Margin: Smooth (0 points) Echogenic Foci: No echogenic foci (0 points) TI-RADS category: TR 4 (4-6 points) Nodule 2 Location: Mid-portion of the right thyroid lobe. Size: 1.1 x 0.7 x 0.6 cm. Composition: Almost completely solid (2 points) Echogenicity: Hypoechoic (2 points) Shape: Etozs-exte-qaqt (0 points) Margin: Smooth (0 points) Echogenic Foci: No echogenic foci (0 points) TI-RADS category: TR 4 (4-6 points) Nodule 3 Location: Lower pole of the left thyroid lobe. Size: 1.4 x 1.3 x 1.1 cm. Composition: Solid (2 points) Echogenicity: Very hypoechoic (3 points) Shape: Aprstq-hktb-xgow (3 points) Margin: Ill-defined (0 points) Echogenic Foci: Macrocalcifications (1 point) TI-RADS category: TR 5 (7+ points) Nodule 4 Location: Upper pole of the left thyroid lobe. Size: 0.7 x 0.4 x 0.3 cm. Composition: Solid (2 points) Echogenicity: Hypoechoic (2 points) Shape: Kletv-bxpg-dzyh (0 points) Margin: Smooth (0 points) Echogenic Foci: No echogenic foci (0 points) TI-RADS category: TR 4 (4-6 points) IMPRESSION 1. TI-RADS 5 nodule measuring 1.4 cm in the lower pole of the leftthyroid lobe. Per TI-RADS guidelines, ultrasound-guided fine needleaspiration is recommended.. 2. TI-RADS 4 nodules measuring up to 1.3 cm in the mid-portion of theright thyroid lobe.. Per TI-RADS guidelines, follow-up with thyroidultrasound is recommended in 1 year. 3. Subcentimeter TI-RADS 4 nodule in the upper pole of the left thyroidlobe. Per TI-RADS guidelines, no follow-up is warranted. REFERENCE: Kattler FN, Rukhsana WD, Julito EG, et al. ACR Thyroid Imaging,Reporting and Data System (TI-RADS): White Paper of the ACR TI-RADSCommittee. J Am Reji Radiol. 2017 November;14(5):587-595 [id number] Stephania Munoz DO [facility] US ORDERABLES documented in this encounter Visit Diagnoses Diagnosis Thyroid nodule Nontoxic uninodular goiter documented in this encounter Care Teams Elevator Mechanic Relationship Specialty Start Date End Date Esther Verma FNP [address] [place] [address] [address] [place] [phone] PCP - General 07/27/22 Pj Bourne MD [address] [place] [address], [address] [place] [phone] Radiation Oncology 10/21/22 documented as of this encounter
--- OUTSIDE RECORDS SUMMARY | 2024-02-15 14:58 | XMS_ITS | Encounter Summary ---
Author Organization [facility] Address [address] [place] [address] Care Team Providers Care Program Services Assistant Name Role Phone Esther Verma Primary Care Provider [phone] Pj Bourne MD Unavailable [phone] Encounter Details Date Type Department Care Team (Late st Contact Info) Description 12/17/2023 Telephone [facility] Endocrinology - [facility] [address] [place] [address] Ragini Pérez DO [address] [facility] [address] [place] [address] Social History Tobacco Use Types Packs/Day Years [...] encounter Miscellaneous Notes * Telephone Encounter - Stephania Mendoza - 12/17/2023 1029 EDT Spoke with pt. Pt is using [facility] for their care now. * Telephone Encounter - Stephania Mendoza - 12/17/2023 1029 EDT ----- Message from Irene Goldsmith DO sent at 11/11/2023 22:10 EDT ----- This patient needs follow up soon with Dr. Pérez or another provider, thanks. documented in this encounter Plan of Treatment Upcoming Encounters Date Type Department Care Team (Late st Contact Info) Description 06/08/2024 13:30 EST Appointment [facility] Radiology CT Outpatient - [address] [phone] 06/08/2024 14:30 EST Office Visit [email or web address] Radiation Oncology - [address] [phone] Pj Bourne MD [address] [place] [phone] documented as of this encounter Visit Diagnoses Not on filedocumented in this encounter Care Teams Program Services Assistant Relationship Specialty Start Date End Date Esther Verma FNP [address] [place] [address] [address] [place] [phone] PCP - General 07/27/22 Pj Bourne MD [address] [place] [phone] Radiation Oncology 10/21/22 documented as of this encounter
--- OUTSIDE RECORDS SUMMARY | 2024-02-15 14:58 | XMS_ITS | Encounter Summary ---
Author Organization [facility] Address [address] [place] [address] Care Team Providers Care Folded Cloth Taper Name Role Phone BayronEsther EDWARD Primary Care Provider Cleve Farmer MD Unavailable [phone] Reason for Referral * Radiology Services (Routine/Next Available) - Authorization Not Required Specialty Diagnoses / Procedures Referred By [facility] Referred To Contact Diagnoses 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-CMS) Procedures CT CHEST WO CONTRAST CT CHEST WO CONTRAST Cleve Farmer MD [address] [place] [phone] [facility] Referral ID Status Reason Start Date Expiration Date Visits Requested Visits Authorized [id number] Authorization Not Required 3 1 1 Reason for Visit * Reason Comments Lung Cancer Follow up Encounter Details Date Type Department Care Team (Late st Contact Info) Description 05/16/2023 15:30 EDT Office Visit [facility] Cancer Center Radiation Oncology - [address] [phone] Cleve Farmer MD [address] [place] [phone] 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-CMS) (Primary Dx); History of lung cancer Social [...] Sign Reading Time Taken Comments Blood Pressure 133/83 05/16/2023 1525 EDT Pulse 59 05/16/2023 1525 EDT Temperature 36.1 ??C (96.9 ??F) 05/16/2023 1525 EDT Respiratory Rate - - Oxygen Saturation 94% 05/16/2023 1525 EDT Inhaled Oxygen Concentration - - Weight 88.3 kg (194 lb 9.6 oz) 05/16/2023 1525 E DT with shoes Height 163.5 cm (5' 4.37) 05/16/2023 1525 EDT w ith shoes Body Mass Index 33.02 05/16/2023 1525 EDT documented in this encounter Functional Status [...] Progress Notes * Cleve Farmer MD - 05/16/2023 1530 EDT Division of Radiation Oncology FOLLOW-UP NOTE Date of Service: 05/16/2023 Diagnosis: Cancer Staging Primary cancer of right [...] no clinical or radiographic evidence of disease. Recommendations: Follow-up with me in [address] chest and same day visit. And continue to follow-up with her primary care. Subjective: Patient comes in today reporting that her breathing depends on her exertion. She certainly has moreshort of breath with more exertion. She has been feeling generally tired and is affecting everything. She has a cough particular with her last cold it was productive. Its been the same as the last few months. She has neuropathy from diabetes. And she had COVID about a month ago and had trouble withthe steroids. 05/16/2023 15:25 Pain Score (from Vitals) Initial score 10 Final score 10 Comment both feet due to neuroapthy Objective: Vitals: 05/16/23 1525 BP: 133/83 BP Cuff Location: Left arm BP Patient Position: Sitting Pulse: 59 Temp: 36.1 ??C (96.9 ??F) SpO2: 94% Weight: 88.3 kg (194 lb 9.6 oz) Height: 163.5 cm (64.37) Wt Readings from Last 3 Encounters: 05/16/23 88.3 kg (194 lb 9.6 oz) 05/02/23 87.6 kg (193 lb 3.2 oz) 08/23/22 88.5 kg (195 lb) Weight is stable and exam is deferred otherwise. Imaging: CT CHEST WO CONTRAST 05/16/2023 1:00 PM IMPRESSION Decrease in size of treated right upper lobe lesion now measuring 10 mm average diameter with surrounding changes likely related to radiation treatment. Trace right pleural effusion likely radiation related. Multiple groundglass attenuation lesions in the right upper lobe, stable. At least one groundglass attenuation nodule superior segment left lower lobe posteriorly. Given the history of lung cancer and presence of emphysema, these warrant continued follow-up for a minimum of 5 years to confirm stability in size and density. Status post sternotomy and left thoracotomy. Emphysema. Calcified granuloma left lower lobe Severe coronary and aortic atherosclerotic calcification.. Slight enlargement of left lobe of thyroid with calcifications, unchanged. I spent a total of 30 minutes on the date of this encounter meeting with the patient and reviewing documentation/coordinating care as described in the above note. No procedures were performed at the time of the visit. Cleve Farmer MD documented in this encounter Miscellaneous Notes * Addendum Note - Cleve Farmer MD - 05/16/2023 1530 EDTAddended by: CLEVE FARMER on: 06/29/2023 13:42 Modules accepted: Orders documented in this encounter Plan of Treatment Upcoming Encounters Date Type Department Care Team (Late st Contact Info) Description 06/08/2024 13:30 EST Appointment [facility] Radiology CT Outpatient - [address] [id number] 06/08/2024 14:30 EST Office Visit [facility] Radiation Oncology - [address] [phone] Cleve Farmer MD [address] [place] [address], [facility], [address] [place] [phone] documented as of this encounter Results * CT CHEST WO CONTRAST (12/02/2023 8:35 EDT) Anatomical Region Laterality Modality Chest Computed Tomogra phy 12/02/2023 9:21 EDT Impressions 12/02/2023 9:21 EDT 1. ??Expected post radiation changes in the right upper lobe. 2. ??Multiple stable groundglass lesions within both lungs, continued long-term CT surveillance is needed. 3. ??Additional chronic findings above. [id number] Narrative 12/02/2023 9:[address] CHEST WO [...] the left T4 vertebra. Resulting Agency Comment [id number] Procedure Note Soy Goodman MD - 12/02/2023 [...] is needed. 3. Additional chronic findings above. [id number] Cleve Framer MD IMG CT ORDERABLES documented in this encounter Visit Diagnoses Diagnosis 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-CMS)- Primary History of lung cancer Personal history of malignant neoplasm of bronchus and lung 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-CMS) documented in this encounter Care Teams Folded Cloth Taper Relationship Specialty Start Date End Date Esther Verma FNP 26 [facility] [address] [place] [phone] PCP - General 07/27/22 Cleve Farmer MD [address] [place] [address], [facility] 2 [place] [phone] Radiation Oncology 10/21/22 documented as of this encounter
--- OUTSIDE RECORDS SUMMARY | 2024-02-15 14:58 | XMS_ITS ---
Author Organization [facility] Address [address] [place] [address] Care Team Providers Care Production Control Planner Name Role Phone Esther Verma EDWARD Primary Care Provider [phone] Pj Bourne MD Unavailable [phone] Active Problems Problem Noted Date Diagnosed Date Nontoxic multinodular goiter 08/04/2023 Diabetes ([facility]) 05/16/2023 Primary cancer of right upper lobe of lung ([facility]) 07/26/2022 Cancer Staging:Clinical:Stage IA2(cT1b, cN0, cM0) - Signed by Pj Bourne MD on 09/13/2022 Overview: Added automatically from request for surgery [id number] Current Oncology Plans No current plan information found. Past Plans No past plan information found. Radiation Treatments * Treatment Site Started On Last Treated On Elapsed Days Fractions Complete Last Fraction Dose Given/Prescribed Total Dose Given/Prescribed Technique RUL SABR 3 11/17/2022 9 5 of 5 1,100 cGy / 1,10 0 cGy 5,500 cGy / 5,500 cGy SABR Lifetime Dose Tracking * Chemical Lifetime Dose Automatic Entry Manual Entr y Dose Area Product 169.1 mGy-cm2 169.1 mGy-cm2 0 mGy-cm 2 Resolved Problems Problem Noted Date Diagnosed Date Resolved Date Malignant neoplasm of upper lobe, right bronchus or lung ([facility]) 10/18/2022 11/11/2022
--- OUTSIDE RECORDS SUMMARY | 2024-02-15 14:58 | XMS_ITS | Encounter Summary ---
Author Organization [facility] [place] [address] Care Team Providers Care Director Of Event Management Name Role Phone Kamilla Silvestre MD Primary Care Provider [phone] Reason for Visit * Reason Comments Skin Check Encounter Details Date Type Department Care Team (Late st Contact Info) Description 02/13/2013 2:15 PM EDT Office Visit Dermatology [facility] [address] [place], [place] [phone] Price Vega MD [address], [place] [address] Psoriasiform dermatitis (Primary Dx) Social History Tobacco Use Types Packs/Day Years Used Date Smoking Tobacco: Never Sex and Gender Information Value Date Recorded Sex Assigned at Not on file Gender Identity Not on file Sexual Orientation Not on file documented as of this encounter Progress Notes * Price Vega MD - 02/13/2013 2:28 PM EDT Problem: Dermatitis. Edwige is a 62-year-old woman, the mother of Anabell Davis, who for some three years has had a very pruritic dermatitis on both elbows and a little bit on the preauricular ears. She was given clobetasol cream by Dr. Silvestre, but she feels that while this helped the oozing of this site, it did not clear it; it made it more leathery. Patient has been on lisinopril for 20 years. After a heart attack four years ago, was placed on atorvastatin, nitro, and Toprol. She has arthritis of her knees. Patient states that there is no family history of psoriasis. She is very bothered by the appearance of this dermatitis. Patient denies any alcohol use. Physical examination reveals a pleasant 62-year-old woman who has lichenified plaques, largest being on the right elbow and two plaques with some site micaceous scaling present on the left and right preauricular locations. She has no stigmata of psoriasis on her knees. She has no pitting of her nails. The rest of the scalp is without dermatitis. Assessment and Plan: 1. 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 a. Continue clobetasol cream applying on a q.h.s. basis, but begin now using Saran Wrap occlusion overnight. b. Discussed desirability of methotrexate. Patient has a history of hepatitis in about 1981, but apparently has had normal liver function tests since then. Will begin a short course of methotrexate to try to clear her dermatitis and then taper down and off it and switch to just utilizing topicals. Begin 10 mg of methotrexate p.o. q. week, #20 dispensed with zero refills. c. The patient will start on folate 1 mg one p.o. daily, dispensed 90 with three refills. Take every day except on day of methotrexate dosing. Return to clinic in one month for repeat check and will check methotrexate labs at that time. COPY: Kamilla Silvestre M.D. documented in this encounter Plan of Treatment Not on file documented as of this encounter Visit Diagnoses Diagnosis Psoriasiform dermatitis- Primary Other psoriasis and similar disorders documented in this encounter Care Teams Director Of Event Management Relationship Specialty Start Date End Date Kamilla Silvestre MD [address] [place] [address] PCP - General 02/13/13 11/24/20 documented as of this encounter
--- OUTSIDE RECORDS SUMMARY | 2024-02-15 14:58 | XMS_ITS | Encounter Summary ---
Author Organization [facility] Address [address] [place] [address] Care Team Providers Care Mineral Resources Inspector Name Role Phone Esther Verma Primary Care Provider [phone] Pj Bourne MD Unavailable [phone] Reason for Referral * Cardiology (Routine/Next Available) - New Request Specialty Diagnoses / Procedures Referred By Contac t Referred To Contact Diagnoses Atrial fibrillation, unspecified type (HCC-CMS) Procedures EKG 12-LEAD Taj Lei MD [address] [place] [address] [address] Referral ID Status Reason Start Date Expiration Date V isits Requested Visits Authorized [id number] New Request 02/08/2024 1 1 Reason for Visit * Reason Comments New Patient Visit * Cardiology (Routine) - Authorization Not Required Specialty Diagnoses / Procedures Referred By Contac t Referred To Contact Cardiology Diagnoses Unspecified atrial fibrillation (HCC-CMS) Esther Verma FNP 26 [facility] [address] [place] [address] [facility] [address] [place] [address] Referral ID Status Reason Start Date Expiration Date Visits Requested Visits Authorized [id number] Authorization Not Required 1 1 Encounter Details Date Type Department Care Team (Late st Contact Info) Description 02/14/2024 13:45 EDT Office Visit [facility] Clinic [address] [place] [address] Taj Lei MD [address] [facility] [address] [address] [place] [address] Permanent atrial fibrillation (HCC-CMS) (Primary Dx); Current use of termite exterminator helper anticoagulation; ACC/AHA stage C heart failure with preserved ejection fraction (HCC-CMS); Diabetes mellitus type 2, insulin dependent (HCC-CMS); Essential hypertension Social History Tobacco Use Types Packs/Day Years [...] EDT Pulse 75 02/14/2024 1331 EDT Temperature - - Respiratory Rate - - Oxygen Saturation 94% 02/14/2024 1331 EDT Inhaled Oxygen Concentration - - Weight 83.9 kg (185 lb) 02/14/2024 1331 EDT Height 160.8 cm (5' 3.31) 02/14/2024 1331 EDT Body Mass Index 32.45 02/14/2024 1331 EDT documented in this encounter Functional Status [...] as of this encounter Progress Notes * Taj Lei MD - 02/14/2024 1345 EDT [facility] CARDIOLOGY CONSULT Date of Service: 02/14/24 Patient: Edwige Byers, 1950 Reason for Consult: Atrial fibrillation, unspecified type ([facility]) [I48.91] Referring Provider: Esther Verma ASSESSMENT & PLAN 1. Permanent Afib. Rate controlled. Asymptomatic. Anti-coagulated. No bleeding. Lifelong OAC Continue rate control w/ diltiazem 240 mg daily and metoprolol 150 mg daily Annual CBC, CMP and Mg 2. HFpEF. Volumes status optimized. Continue torsemide 40 mg daily; how to adjust diuretic bases on s/s discussed Consider add-on Jardiance or Farxiga 10 mg daily 3. CAD s/p RCA PCI 2007. No angina. Not on statin per patient's choice. Consider trial w/ rosuvastatin 5 - 10 mg daily; aim for NHDL < 100. Reasonable to forgo ASA while on DOAC 4. IDDM. Consider Ozempic or Mounjaro instead of Victoza to facilitate weight loss. 5. HTN. Controlled. RTC PRN SUBJECTIVE 73 y.o. female patient with personal history of lung cancer s/p radiation, HTN, IDDM, CAD s/p RCA PCI 2007, HFpEF and Afib 12/2023 HFpEF and Afib w/ RVR. Good response to forced diuresis and intensified rate control. Edwige Byers comes in w/ a friend feeling well. She does not endorse edema or abdominal distention. Her SOB is at baseline. She qualified for O2 w/ exertion and over night. She received her O2 tank today. Afib is not bothersome. Her functional capacity is limited due to neuropathy and foot pain. She is feeling fatigued. Patient denies CP, SOB, PND, edema, palpitations, syncope, claudication, bleeding, stroke or GI symptoms. 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 Current Outpatient Medications Medication BD ULTRA-FINE SHORT PEN NEEDLE betamethasone valerate (VALISONE) 0.1 % ointment calcium carbonate (TUMS) 200 mg calcium (500 mg) tablet,chewable dilTIAZem (CARDIZEM CD) 240 mg ER capsule ELIQUIS 5 mg tablet ergocalciferol, vitamin D2, (VITAMIN D ORAL) fluorouracil (EFUDEX) 5 % cream FREESTYLE LITE STRIPS test strips HUMULIN N NPH INSULIN KWIKPEN 100 unit/mL (3 mL) injectable pen insulin aspart (NOVOLOG FLEXPEN U-100 INSULIN SUBQ) liraglutide (VICTOZA) 0.6 mg/0.1 mL (18 mg/3 mL) injectable pen lisinopriL (PRINIVIL) 10 mg tablet metoprolol SUCCinate (TOPROL-XL) 50 mg tablet metoprolol XL (TOPROL-XL) 100 mg tablet montelukast (SINGULAIR) 10 mg tablet nitroGLYCERIN (NITROSTAT) 0.4 mg SL tablet tiotropium bromide (SPIRIVA RESPIMAT INHALATION) torsemide (DEMADEX) 20 mg tablet VITAMIN B COMPLEX ORAL No current facility-administered medications for this visit. Allergies Allergen Reactions Gabapentin ineffective Plavix [Clopidogrel] Sulfa (Sulfonamide Antibiotics) Does not remember Erythromycin Nausea And Vomiting Other - See Comments Rash Ct dye Sudafed [Pseudoephedrine Hcl] Family History: No premature CAD Social History: No smoker. No alcohol. Review of Systems: Pertinent positives and negatives as mentioned above. OBJECTIVE Wt Readings from Last 3 Encounters: 02/14/24 83.9 kg (185 lb) 12/02/23 91.1 kg (200 lb 12.8 oz) 08/29/23 88.9 kg (196 lb) BP Readings from Last 3 Encounters: 02/14/24 120/72 12/02/23 (!) 136/96 08/29/23 134/62 Pulse Readings from Last 3 Encounters: 02/14/24 75 12/02/23 79 08/29/23 80 Diagnostic Data: Available in- and out-of network records incl laboratory, imaging and cardiac studies reviewed w/ patient. Laboratory Studies Hematology: Lab Results Component Value Date WBC 9.38 07/26/2022 HGB 18.2 (H) 07/26/2022 PLT 237 07/26/2022 No results found for: FERRITIN, IRON, TIBC, LABIRON Chemistry: Lab Results Component Value Date CREATININE 1.10 (H) 07/26/2022 CALCGFR 54 (L) 07/26/2022 BUN 25 07/26/2022 NA 141 07/26/2022 CL 102 07/26/2022 K 4.2 07/26/2022 LABALBU 4.3 07/26/2022 ALT 24 07/26/2022 AST 30 07/26/2022 ALKPHOS 101 07/26/2022 TBIL 1.4 (H) 07/26/2022 Cardiac: No results found for: NTBNP, TROPONINI, CPK, URICACID, CRP Lipids: No results found for: CHOL, TRIG, HDL, LDL, DLDL, LDLDIRECT, LDLBASE, NHDLCH, LIPOA, LIPOPROTEIN Endocrine: Lab Results Component Value Date TSH 1.59 08/29/2023 Cardiac & Imaging Studies Echocardiogram 12/2023 ([facility]): EF 55 %. Normal RV. No or MR. RVSP 26 mmHg EKG from today reviewed and interpreted to show: Afib, non-specific ST changes; rate 75 bpm, Qtc 457 ms PHYSICAL EXAM GENERAL: No acute distress HEENT: Anicteric NECK: Supple, normal jugular venous pressure CHEST: Left and anterior thoracotomy scar. Nontender. LUNGS: Diminished breathsounds, no wheezes HEART: Regular rate and irregular rhythm, normal S1-S2, no murmurs ABDOMEN: Soft, nontender, bowel sounds present, no bruits EXTREMITIES: No cyanosis or edema, equal pulses SKIN: Warm and dry, no rashes NEURO: Alert and oriented x3, grossly intact ORDERS & MEDICATION CHANGES Other Orders Placed This Visit Procedures EKG 12 lead There are no discontinued medications. No orders of the defined types were placed in this encounter. Taj Lei MD, PhD documented in this encounter Plan of Treatment Upcoming Encounters Date Type Department Care Team (Late st Contact Info) Description 06/08/2024 13:30 EST [facility]ointment [facility] Radiology CT Outpatient - [address] [phone] 06/08/2024 14:30 EST Office Visit [facility] Cancer Center Radiation Oncology - [address] [address] Pj Bourne MD [address] [place] [address], [address] [place] [phone] documented as of this encounter Procedures Procedure Name Priority Date/Time Associated Diagnosis Comments ECG REPORT - SCANNED 02/14/2024 14:16 EDT EKG 12-LEAD Routine 02/14/2024 13:44 EDT Permanent atrial fibrillation ([facility]) documented in this encounter Results * ECG REPORT - SCANNED (02/14/2024 14:16 EDT) 02/14/2024 14:1 6 EDT Scan 2 Outside Cutter Hand PROCEDURE/MINOR [place] GICAL ORDERABLES * EKG 12-LEAD (02/14/2024 13:44 EDT) 02/14/2024 13:4 4 EDT Narrative [facility] 02/14/2024 13:50 EDT ? CVC ? Test Date: ?2024-02-14 Pat Name: ? EDWIGE BYERS ? Department: ? Room: ? Gender: ? Female ? Data Capture Specialist: ?? sal CULP: ?1950 ? Requested By: DO VANG Order Number: [id number] ? Adan ALY: ?? TAJ LEI MD ? Measurements Intervals ?[place] ? Rate: ? 75 ? P: ?0 NE: ? 0 ?QRS: ?73 QRSD: ? 84 [...] Name: EDWIGE BYERS Department: Room: Gender: Female Data Capture Specialist: sal : 1950 Requested By: DO VANG Order Number: [id number] Adan MD: TAJ LEI MD Measurements Intervals [place] Rate: 75 P: 0 NE: 0 QRS: 73 QRSD: 84 T: 182 QT: 410 QTc: 457 Interpretive Statements Atrial fibrillation Nonspecific ST and T wave abnormality No previous ECG available for comparison I reviewed the tracing and have either agreed or edited the findings inthis report. Electronically Signed On 02-14-2024 13:50:03 EDT by TAJ ZAMBRANO. Taj Lei MD CARDIAC ECG ORDERABL ES [facility] documented in this encounter Visit Diagnoses Diagnosis Permanent atrial fibrillation ([facility])- Primary Atrial fibrillation Current use of termite exterminator helper anticoagulation Long-term (current) use of anticoagulants ACC/AHA stage C heart failure with preserved ejection fraction (HCC-CMS) Diabetes mellitus type 2, insulin dependent ([facility]) Type II or unspecified type diabetes mellitus without mention of complication, not stated as uncontrolled Essential hypertension Unspecified essential hypertension documented in this encounter Discontinued Medications Medication Sig Discontinue Reason Start Date End Da te aspirin chewable 81 mg tablet Take 1 Tablet by mouth daily. Alternate therapy 02/14/2024 furosemide (LASIX) 40 mg tablet TAKE ONE AND ONE-HALF TABLETS BY MOUTH EVERY MORNING Alternate therapy 06/28/2023 02/14/2024 furosemide (LASIX) 20 mg tablet Take 1 Tablet by mouth daily. Alternate therapy 01/25/2020 02/14/2024 lisinopriL (PRINIVIL) 5 mg tablet Take 1 Tablet by mouth daily. Dose adjustment 03/01/2020 02/14/2024 dilTIAZem (TIAZAC) 120 mg SR capsule Take by mouth daily. Dose adjustment 05/21/2022 02/14/2024 documented as of this encounter Historical Medications * This list may reflect changes made after this encounter. Medication Sig Dispensed Refills Start Date End Date torsemide (DEMADEX) 20 mg tablet Take 2 Tablets by mouth daily. added in this encounter Care Teams Mineral Resources Inspector Relationship Specialty Start Date End Date Esther Verma FNP [address] [place] [address] [address] [place] [phone] PCP - General 07/27/22 Pj Bourne MD [address] [place] [address], [address] [place] [phone] Radiation Oncology 10/21/22 documented as of this encounter
--- OUTSIDE RECORDS SUMMARY | 2024-02-15 14:58 | XMS_ITS | Encounter Summary ---
Author Organization [facility] Address [address] [place] [address] Care Team Providers Care Patch Machine Operator Name Role Phone Esther Verma Primary Care Provider [phone] Pj Bourne MD Unavailable [phone] Encounter Details Date Type Department Care Team (Late st Contact Info) Description 09/05/2023 Orders Only [facility] Radiology - [address] [phone] Marcus Garcia MD [address] [facility], [address] [place] [address] Social History Tobacco Use Types Packs/Day Years [...] No 03/28/2020 documented as of this encounter Plan of Treatment Upcoming Encounters Date Type Department Care Team (Late st Contact Info) Description 06/08/2024 13:30 EST Appointment [facility] Radiology CT Outpatient - [address] [phone] 06/08/2024 14:30 EST Office Visit [facility] Cancer Center Radiation Oncology - [address] [phone] Pj Bourne MD [address] [place] [phone] documented as of this encounter Visit Diagnoses Not on filedocumented in this encounter Care Teams Patch Machine Operator Relationship Specialty Start Date End Date Esther Verma FNP [address] [place] [phone] PCP - General 07/27/22 Pj Bourne MD [address] [place] [phone] Radiation Oncology 10/21/22 documented as of this encounter
--- OUTSIDE RECORDS SUMMARY | 2024-02-15 14:58 | XMS_ITS | Encounter Summary ---
Author Organization [facility] Address [address] [place] [address] Care Team Providers Care Nurse Informatics Educator Name Role Phone Esther Verma Primary Care Provider [phone] Pj Bourne MD Unavailable [phone] Encounter Details Date Type Department Care Team (Late st Contact Info) Description 05/13/2023 Orders Only [facility] Radiology - [address] [phone] Marcus Garcia MD [address] [facility], Level 1 [place] [address] Social History Tobacco Use Types [...] Contact Info) Description 06/08/2024 13:30 EST Appointment [facility] Radiology CT Outpatient - [address] [id number] 06/08/2024 14:30 EST Office Visit [facility] Radiation Oncology - [address] [phone] Pj Bourne MD [address] [place] [phone] documented as of this encounter Visit Diagnoses Not on filedocumented in this encounter Care Teams Nurse Informatics Educator Relationship Specialty Start Date End Date Esther Verma FNP [address] [place] [phone] PCP - General 07/27/22 Pj Bourne MD [address] [place] [phone] Radiation Oncology 10/21/22 documented as of this encounter
--- OUTSIDE RECORDS SUMMARY | 2024-02-15 14:58 | XMS_ITS | Encounter Summary ---
Author Organization [facility] Address [address] [place] [address] Care Team Providers Care Aircraft Engineer Name Role Phone Esther Verma Primary Care Provider [phone] Pj Bourne MD Unavailable [phone] Encounter Details Date Type Department Care Team (Late st Contact Info) Description 01/25/2024 Lab Requisition [facility] Pathology & Laboratory Medicine - [address] [phone] Outr Resulting Lab, Provider Social History Tobacco Use Types Packs/Day Years [...] [facility] Radiology CT Outpatient - [address] [address] 06/08/2024 14:30 EST Office Visit [facility] Radiation Oncology - [address] [phone] Pj Bourne MD [address] [place] [phone] documented as of this encounter Procedures Procedure Name Priority Date/Time Associated Diagnosis Comments PTH INTACT Routine 01/25/2024 10:30 EDT documented in this encounter Results * (ABNORMAL) PTH INTACT (01/25/2024 10:30 EDT) Intact PTH 104(H) 19 - 88 pg/mL 01/26/2024 8:32 EDT [facility] Blood VENOUS BLOOD / Unknown 01/25/2024 10:30 EDT 01/25/2024 21:59 EDT Provider Outr Resulting Lab CHEMISTRY & BLOOD GAS ORDERABLES [facility] [address] [place] [address] documented in this encounter Visit Diagnoses Not on filedocumented in this encounter Care Teams Aircraft Engineer Relationship Specialty Start Date End Date Esther Verma FNP [address] [place] [address] [address] [place] [phone] PCP - General 07/27/22 Pj Bourne MD [address] [place] [phone] Radiation Oncology 10/21/22 documented as of this encounter
--- OUTSIDE RECORDS SUMMARY | 2024-02-15 14:58 | XMS_ITS | Encounter Summary ---
Author Organization [facility] Address [address] [place] [address] Care Team Providers Care Patient Accounts Manager Name Role Phone Eirnn Vermay EDWARD Primary Care Provider [phone] Pj Bourne MD Unavailable [phone] Reason for Visit * Reason Comments Lung Cancer Encounter Details Date Type Department Care Team (Late st Contact Info) Description 11/17/2022 Documentation Visit [facility] Radiation Oncology - [address] [place] [address] [place] [address] Melissa Herrera RN [address] [place] [address] Social History Tobacco Use Types Packs/Day Years [...] as of this encounter Progress Notes * Melissa Herrera, MERARI - 11/17/2022 1621 EDT Edwige completed her SABR radiation treatments to the RUL of the lung today. After she got up from the treatment table she expressed that she felt warm and dizzy. She was escorted to the nurses station and vomited x 1. She reports that she has a hx of vertigo and that this happens once in a while. She was able to lay down on the stretcher for 30- 40 minutes. She attempted to get up and leave and became dizzy again and vomited once more. She wanted to lay down for another 20 minutes and then felt ready to leave.See was seen by Dr Bourne. VS: 163/77- HR 70-RR 16. She denies any chest pain, SOB and she has no cough. At 1615 she was able to get into a wheelchair and be brought to her family and assisted into the car for her trip to [facility]. She was provided an emesis basin, tissue, a towel and ice pack. documented in this encounter Plan of Treatment Upcoming Encounters Date Type Department Care Team (Late st Contact Info) Description 06/08/2024 13:30 EST Appointment [facility] Radiology CT Outpatient - [address] [phone] 06/08/2024 14:30 EST Office Visit [facility] Radiation Oncology - [address] [phone] Pj Bourne MD [address] [place] [phone] documented as of this encounter Visit Diagnoses Not on filedocumented in this encounter Care Teams Patient Accounts Manager Relationship Specialty Start Date End Date Esther Verma FNP [address] [facility] [address] [place] [phone] PCP - General 07/27/22 Pj Bourne MD [address] [place] [address] [place] [address] Radiation Oncology 10/21/22 documented as of this encounter
--- OUTSIDE RECORDS SUMMARY | 2024-02-15 14:58 | XMS_ITS | Encounter Summary ---
Author Organization [facility] Address [address] [place] [address] Care Team Providers Care Tax Senior Associate Name Role Phone Esther Verma Primary Care Provider [phone] Pj Bourne MD Unavailable [phone] Reason for Referral * Radiology Services (Routine/Next Available) - Authorization Not Required Specialty Diagnoses / Procedures Referred By Chau t Referred To Contact Diagnoses Nontoxic multinodular goiter Procedures US GUIDED NECK FNA Ragini Pérez DO [address] [employer] [address] [place] [phone] [facility] Referral ID Status Reason Start Date Expiration Date Visits Requested Visits Authorized [id number] Authorization Not Required 08/30/2023 1 1 Reason for Visit * Reason Comments Thyroid Problem * Referral (Routine) - Authorization Not Required Specialty Diagnoses / Procedures [facility] Referred To Contact Urology Diagnoses Thyroid nodule [facility] Endocrinology [address] [place] [address] Referral ID Status Reason Start Date Expiration Date Visits Requested Visits Authorized [id number] Authorization Not Required 1 1 Encounter Details Date Type Department Care Team (Late st Contact Info) Description 08/29/2023 10:00 EST Office Visit [facility] Endocrinology [address] [place] [phone] Ragini Pérez DO [address] [employer] [address] [place] [address] Nontoxic multinodular goiter (Primary Dx) Social History Tobacco Use Types [...] Sign Reading Time Taken Comments Blood Pressure 134/62 08/29/2023 1026 EST Pulse 80 08/29/2023 1026 EST Temperature - - Respiratory Rate - - Oxygen Saturation - - Inhaled Oxygen Concentration - - Weight 88.9 kg (196 lb) 08/29/2023 1026 EST Height 161 cm (5' 3.39) 08/29/2023 1026 EST Body Mass Index 34.3 08/29/2023 1026 EST documented in this encounter Functional Status Functional [...] as of this encounter Progress Notes * Roxy Cuevas MA - 08/29/2023 1000 EST New Patient referral for Thyroid Nodule * Ragini Pérez DO - 08/29/2023 1000 EST Endocrinology New Patient Visit Date of Service: 08/30/2023 Chief Complaint Patient presents with Thyroid Problem HPI: 72 y.o. female with h/o diabetes, chronic afib, lung cancer diagnosed a year ago, with radiation tx at [facility], five txs, the last tx about five months ago, presents to the clinic for evaluation and treatment recommendations for possible thyroid nodules seen on CT. Pt states she may have had a thyroid US performed at [facility] in [facility] about 2 months ago. She says she has a history of previous thyroid nodule biopsy, that it was traumatic, because she bled a lot because she takes Eliquis for a-fib. Results of the most recent thyroid ultrasound were reviewed withthe pt and her friend, who accompanied the pt to today's appt. Review of Systems A 10 point review of systems was obtained, pertinent positives and negatives as listed above, all others negative. 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 Allergies Allergen Reactions Gabapentin ineffective Plavix [Clopidogrel] Sulfa (Sulfonamide Antibiotics) Does not remember Erythromycin Nausea And Vomiting Other - See Comments Rash Ct dye Sudafed [Pseudoephedrine Hcl] BP 134/62 (BP Cuff Location: Left arm, BP Patient Position: Sitting, BP Cuff Sizes: Adult, regular) Pulse 80 Ht 161 cm (63.39) Wt 88.9 kg (196 lb) BMI 34.30 kg/m?? Physical Exam: Gen: alert, cooperative, in NAD HEENT: atraumatic, normocephalic, conjunctivae clear Neck: supple, trachea midline, no thyromegaly or nodules appreciated Lymph: no cervical, submandibular, supraclavicular adenopathy CV: RRR Abd: soft, ND Extr: no peripheral edema, atraumatic Skin: No evidence of rash or lesion. Turgor and color normal. Previous Labs: No results found for: HGBA1C, GLUF, MICROALBUR No results found for: CHOL, HDL, LDLBASE, TRIG, CHOLHDL Lab Results Component Value Date ALT 24 07/26/2022 AST 30 07/26/2022 ALKPHOS 101 07/26/2022 TSH 1.59 08/29/2023 Thyroid US from 7.3.23: NODULES: Thyroid nodules as outlined below. Nodule 1 Location: Mid-portion of the right thyroid lobe. Size: 1.3 x 1.2 x 0.7 cm. Composition: Solid (2 points) Echogenicity: Hypoechoic (2 points) Shape: Fhjsu-xbmr-gzxs (0 points) Margin: Smooth (0 points) Echogenic Foci: No echogenic foci (0 points) TI-RADS category: TR 4 (4-6 points) Nodule 2 Location: Mid-portion of the right thyroid lobe. Size: 1.1 x 0.7 x 0.6 cm. Composition: Almost completely solid (2 points) Echogenicity: Hypoechoic (2 points) Shape: Zuuvs-vnxl-lqxd (0 points) Margin: Smooth (0 points) Echogenic Foci: No echogenic foci (0 points) TI-RADS category: TR 4 (4-6 points) Nodule 3 Location: Lower pole of the left thyroid lobe. Size: 1.4 x 1.3 x 1.1 cm. Composition: Solid (2 points) Echogenicity: Very hypoechoic (3 points) Shape: Guntig-zewh-vzek (3 points) Margin: Ill-defined (0 points) Echogenic Foci: Macrocalcifications (1 point) TI-RADS category: TR 5 (7+ points) Nodule 4 Location: Upper pole of the left thyroid lobe. Size: 0.7 x 0.4 x 0.3 cm. Composition: Solid (2 points) Echogenicity: Hypoechoic (2 points) Shape: Dblqn-pobu-onrp (0 points) Margin: Smooth (0 points) Echogenic Foci: No echogenic foci (0 points) TI-RADS category: TR 4 (4-6 points) IMPRESSION 1. TI-RADS 5 nodule measuring 1.4 cm in the lower pole of the left thyroid lobe. Per TI-RADS guidelines, ultrasound-guided fine needle aspiration is recommended.. 2. TI-RADS 4 nodules measuring up to 1.3 cm in the mid-portion of the right thyroid lobe.. Per TI-RADS guidelines, follow-up with thyroid ultrasound is recommended in 1 year. 3. Subcentimeter TI-RADS 4 nodule in the upper pole of the left thyroid lobe. Per TI-RADS guidelines, no follow-up is warranted. REFERENCE: Tessler FN, Rukhsana WD, Julito EG, et al. ACR Thyroid Imaging, Reporting and Data System (TI-RADS): White Paper of the ACR TI-RADS Committee. J Am Reji Radiol. 2017 November;14(5):587-595 Assessment: 72 y.o.female with history of lung cancer, thyroid nodule which meets criteria for biopsy. Pt will need clearance from cardiology for holding Eliquis prior to FNA. Plan: Edwige was seen today for thyroid nodule evaluation. As above, recommend FNA of the left lower lobeTR 5 nodule after clearance from cardiology for holding Eliquis. Pt would like to go to [facility] if possible, but states she does not want to go to [facility]. Diagnoses and all orders for this visit: Nontoxic multinodular goiter - THYROID-STIMULATING IMMUNOGLOBULIN (TSI), SERUM; Future - THYROTROPIN RECEPTOR ANTIBODY; Future - T3 FREE; Future - T4 FREE; Future - TSH; Future Other orders - FREESTYLE LITE STRIPS test strips; USE TO TEST TWO TIMES A DAY - fluorouracil (EFUDEX) 5 % cream; APPLY ONE APPLICATION TOPICALLY TWO TIMES A DAY FOR 3 WEEKS - dilTIAZem (CARDIZEM CD) 240 mg ER capsule; Take 1 Capsule by mouth daily. (Patient not taking: Reported on 08/29/2023) - furosemide (LASIX) 40 mg tablet; TAKE ONE AND ONE-HALF TABLETS BY MOUTH EVERY MORNING (Patient not taking: Reported on 08/29/2023) - lisinopriL (PRINIVIL) 10 mg tablet; Take 1 Tablet by mouth daily. - metoprolol SUCCinate (TOPROL-XL) 50 mg tablet; Take 1 Tablet by mouth daily. - Return in about 3 months (around 2023). The pt was advised to contact the clinic with any additional questions or concerns. Ragini Pérez DO 08/30/2023 19:13 documented in this encounter Plan of Treatment Upcoming Encounters Date Type Department Care Team (Jacki st Contact Info) Description 06/08/2024 13:30 EST Appointment [facility] Radiology CT Outpatient - [address] [address] 06/08/2024 14:30 EST Office Visit [facility] Radiation Oncology - [facility] [address] [place], [place] [phone] Pj Bourne MD 111 [facility], Level 2 [place] [address] documented as of this encounter Results * US GUIDED NECK FNA (10/13/2023 15:08 EDT) Anatomical Region Laterality Modality Neck Ultrasound 10/16/2023 19:3 5 EDT Impressions 10/16/2023 19:35 EDT Technically difficult biopsy of the 1.4 cm TI-RADS 5 nodule in the deep inferior aspect of the left thyroid lobe. ??Adequate cellular material for diagnosis was not obtained. [id number] Narrative 10/16/2023 19:35 EDT US GUIDED NECK FNA 10/13/2023 12:43 PM SIGNS & SYMPTOMS / COMMENTS: TR 5 nodule identified on Thyroid US from April 2023;E04.2:Nontoxic multinodular goiter COMPARISON: Outside hospital thyroid ultrasound 01/17/2023 TECHNIQUE: Preprocedural images confirm a TI-RADS 5 nodule measuring 1.4 cm in the deep inferior aspect of the left thyroid lobe. The procedure and its potential complications and alternatives were explained to the patient, and written and verbal consent were obtained. A procedural time out was performed prior to the procedure, where the procedure, site, and patient identification was confirmed by all healthcare providers present in the room The patient was prepped and draped in the usual sterile fashion. Lidocaine 1% was used for local anesthesia. Seven fine needle aspirations were performed with a 25-gauge needle under ultrasound guidance. Due to the deep location of the nodule and closely approximated carotid and jugular vessels, this was a technically difficult biopsy. Adequate cellular material was not obtained despite biopsy attempts from the ipsilateral and contralateral side. There were no immediate complications. ??The patient left the department in excellent condition. Procedure Note Chacorta Scherer MD - 10/16/2023 US GUIDED NECK FNA 10/13/2023 12:43 PM SIGNS & SYMPTOMS / COMMENTS: TR 5 nodule identified on Thyroid US fromApril 2023;E04.2:Nontoxic multinodular goiter COMPARISON: Outside hospital thyroid ultrasound 01/17/2023 TECHNIQUE: Preprocedural images confirm a TI-RADS 5 nodule measuring 1.4 cm in thedeep inferior aspect of the left thyroid lobe. The procedure and its potential complications and alternatives wereexplained to the patient, and written and verbal consent were obtained. A procedural time out was performed prior to the procedure, where theprocedure, site, and patient identification was confirmed by allhealthcare providers present in the room The patient was prepped and draped in the usual sterile fashion. Lidocaine1% was used for local anesthesia. Seven fine needle aspirations wereperformed with a 25- gauge needle under ultrasound guidance. Due to thedeep location of the nodule and closely approximated carotid and jugularvessels, this was a technically difficult biopsy. Adequate cellularmaterial was not obtained despite biopsy attempts from the ipsilateral andcontralateral side. There were no immediate complications. The patient left the department inexcellent condition. IMPRESSION Technically difficult biopsy of the 1.4 cm TI-RADS 5 nodule in the deepinferior aspect of the left thyroid lobe. Adequate cellular material fordiagnosis was not obtained. [id number] Ragini Pérez DO IMG US ORDERABLES * T3 FREE (08/29/2023 12:10 EST) T3, Free 4.5 2.8 - 5.3 pg/mL 08/29/2023 21:07 EST [facility] Blood VENOUS BLOOD / Unknown Venipuncture / Unknown 08/29/2023 12:10 EST 08/29/2023 12:27 EST [facility]STRY & BLOOD GA S ORDERABLES [facility] [address] [place] [address] * THYROTROPIN RECEPTOR ANTIBODY (08/29/2023 12:10 EST) Thyrotropin Receptor Ab, S <1.10 0.00 - 1.75 IU/L 08/30/2023 16:43 EST [facility] [employer] Comment: ADDITIONAL INFORMATION At a decision limit of 1.75 IU/L, this assay has 97% sensitivity and 99% specificity for detection of Graves' disease. In healthy individuals and in patients with thyroid disease without diagnosis of Graves' disease, the upper limit of anti-TSHR values are 1.22 IU/L and 1.58 IU/L, respectively (97.5th percentiles). Test Performed by: [facility] [place] [address] Elevator Repairer Helper: Abel Cloud M.D. Ph.D.; CLIA# [id number] Blood VENOUS BLOOD / Unknown Venipuncture / Unknown 08/29/2023 12:10 EST 08/29/2023 12:27 EST Ragini Pérez CHEMISTRY & BLOOD [place] S ORDERABLES Performing Organization Address [facility] de Phone Number [facility] [address] [place] [address] * THYROID-STIMULATING IMMUNOGLOBULIN (TSI), SERUM (08/29/2023 12:10 EST) Thyroid-Stimulati ng Immunoglobin, S <1.0 <=1.3 TSI index 08/31/2023 17:15 EST [facility] [employer] Comment: Test Performed by: [facility] [place] [address] Elevator Repairer Helper: Abel Cloud M.D. Ph.D.; CLIA# [id number] Blood VENOUS BLOOD / Unknown Venipuncture / Unknown 08/29/2023 12:10 EST 08/29/2023 12:27 EST Ragini Pérez DO CHEMISTRY & BLOOD [place] S ORDERABLES Performing Organization Address [facility] Co de Phone Number [facility] [address] [place] [address] documented in this encounter Visit Diagnoses Diagnosis Nontoxic multinodular goiter- Primary Nontoxic multinodular goiter documented in this encounter Historical Medications * This list may reflect changes made after this encounter. Medication Sig Dispensed Refills Start Date End Date metoprolol SUCCinate (TOPROL-XL) 50 mg tablet Take 1 Tablet by mouth daily. 150 mg daily 05/31/2023 lisinopriL (PRINIVIL) 10 mg tablet Take 1 Tablet by mouth daily. 07/06/2023 dilTIAZem (CARDIZEM CD) 240 mg ER capsule Take 1 Capsule by mouth daily. 06/21/2023 fluorouracil (EFUDEX) 5 % cream APPLY ONE APPLICATION TOPICALLY TWO TIMES A DAY FOR 3 WEEKS 06/08/2023 FREESTYLE LITE STRIPS test strips USE TO TEST TWO TIMES A DAY 11/18/2022 furosemide (LASIX) 40 mg tablet TAKE ONE AND ONE-HALF TABLETS BY MOUTH EVERY MORNING 06/28/2023 02/14/2024 added in this encounter Orders Lab Orders Without Results Count Last Ordered D ate First Ordered Date T4 FREE 1 08/29/2023 TSH 1 08/29/2023 documented in this encounter Care Teams Tax Senior Associate Relationship Specialty Start Date End Date Esther Verma FNP [address] [place] [phone] PCP - General 07/27/22 Pj Bourne MD [address] [place] [address], [facility] [address] [place] [phone] Radiation Oncology 10/21/22 documented as of this encounter
--- OUTSIDE RECORDS SUMMARY | 2024-02-15 14:58 | XMS_ITS | Encounter Summary ---
Author Organization [facility] Address [facility] [place] [address] Care Team Providers Care Fundraiser Name Role Phone Kamilla Pierre MD Primary Care Provider [phone] Encounter Details Date Type Department Care Team (Late st Contact Info) Description 10/01/2014 2:40 PM EDT - 10/01/2014 3:44 PM EDT [place] [address] Neil Weaver MD [facility] [place] [address] CARDIAC CATHETERIZATION Social History Tobacco Use Types Packs/Day Years [...] Sign Reading Time Taken Comments Blood Pressure 164/84 10/01/2014 11:27 AM EDT Pulse 64 10/01/2014 11:27 AM EDT Temperature 36.6 ??C (97.9 ??F) 10/01/2014 1 1:27 AM EDT Respiratory Rate 16 10/01/2014 11:2 7 AM EDT Oxygen Saturation 98% 10/01/2014 11: 27 AM EDT Inhaled Oxygen Concentration - - Weight 84.7 kg (186 lb 11.7 oz) 015 11:27 AM EDT Height 160 cm (5' 3) 10/01/2014 11:27 AM EDT Body Mass Index 33.08 10/01/2014 11:27 AM EDT documented in this encounter Discharge Summaries * Amee Rainey PA - 10/01/2014 5:02 PM EDT Patient Name: Edwige Davis Patient Age: 63 y.o. Language: Paraguayan Race: White Ethnicity: Not nor Admit date: 10/01/2014 Discharge date and time: 10/01/2014 Attending Physician: Triston Tomas MD Discharge Physician: Triston Tomas MD Follow-up Recommendations for Providers: 1. reeval for non cardiac causes of CP Inpatient Provider Contact Information: BELINDA Melgoza Armin, MD [phone] Discharge Diagnoses (Hospital Problems) and Secondary Diagnoses (Chronic Problems): Active Hospital Problems Diagnosis ??? Dyslipidemia Lab 07/02/08: TC 179, LDL 105, HDL 35, TG 194 Lab 09/19/08: TC 123, LDL 72, HDL 44, TG 100 ??? Depression ??? Hx RI ??? Former smoker ??? PAF (paroxysmal atrial fibrillation) ??? CKD (chronic kidney disease) ??? Impaired fasting glucose ??? Metabolic syndrome ??? CAD (coronary artery disease) + inferior STEMI on 06/27/08 s/p RCA and mid LAD stent (bare metal stents due to hx of serious epistaxis) TTE (06/28/08): LV size nl, mild concentric LVH, LVEF 75% w/ inf HK. RV nl. No valve dz. ??? HTN (hypertension) Resolved Hospital Problems Diagnosis Date Resolved No resolved problems to display. Active Non-Hospital Problems Diagnosis ??? History of hypercalcemia ??? hx hepatitis, unspecified ??? Psoriasiform dermatitis ??? Anxiety ??? CIS - osteopenia ??? Hyperparathyroidism Previous calcium ranged 9.5-10.6 before with a bit low phos 2.1-2.4 and normal Mg 1.2 Lab 08/22/08: PTH 103, Ca 11.7, BUN/Cr 22/1.1 and 24h urine calcium was high at 314 (09/09/08) Lab 09/19/08: Ca 10.5 Lab 12/30/08: Ca 11.2, BUN/Cr 18/1.1, TSH 0.45 Lab 02/20/09-pending PTH sestamibi scan (02/20/09) showed PTH adenoma behind the sternum Operations/Major Procedures: Procedure(s) with comments: CARDIAC CATHETERIZATION - Procedure: Coronary Angiography History of Presentation: 63 yo with known Hx RI/ CAD, previous stents had recurrent mid scapular back pain through day 10/10/14 which reminded her of previous anginal equal. A few days ago she was tugged by the dog on a leash and developed :L shoulder and arm pain which persisted for the last three days. 09/30/14 she as at [employer] doing usual amount of physical work mid day when she noticed slow onset ofmid scapular pain. The pain persisted through the evening to 10/10 at its peak and eventually she came to the local ED by 4am when she still could sleep. Seen at [facility] 10/01/2014 and workup showed a troponin of 0.06 EKG with old inferior Qs and lateral TWI. She was treated with IV MS x 1 and 3 SL NTG then NTG gtt which she feels finally helped and arranged for transfer to [facility]. She was pain free on arrival but needed increased gtt en route. +nausea post MS dose Hospital Course: On admission to [facility], the patient had no complaints of chest pain or shortness of breath. Telemetry was attached which showed normal sinus rhythm throughout the admission. Chest Pain/ CAD Given the patient's risk factors and presentation, the patient was arranged for coronary angiography which showed no new lesions and patent RCA and LAD stents. An echo done showed a hyperdynamic LV at EF =75%, mild RVH, elevated L sided filling pressures, +diastolic dysfunction and no wall motion abnormalities. She was treated with her regular home medications (previously held in the setting of her IV NTG). Follow up is planned with her regular PCP. She will resume follow up with Dr Lennon as needed after discharge home. Hyperlipidemia Lipid profile is as shown below. Patient has been on high dose atorvastatin. Hypertension Her BP remained stable through admission. She was transitioned from the IV NTG to her regular home meds. The patient was evaluated by the nursing teams. The patient tolerated supervised ambulation in the hallway with no anginal symptoms. Functional and Cognitive Status: At baseline Cognition intact Ambulatory Important Studies ECHO: 1. The left ventricular chamber size is normal. There is asymmetric septal hypertrophy of the proximal septum with no evidence of LVOT obstruction to flow. There are no left ventricular segmental wall motion abnormalities. Global left ventricular systolic function appears hyperdynamic. Ejection fraction is estimated to be 75%. Doppler assessment is consistent with elevated left sided filling pressure. 2. The right ventricle is normal in size. There is mild right ventricular hypertrophy observed. Right ventricular global systolic function is normal. 3. There is no hemodynamically significant valve disease. LHC/ angiography: EDP 16 Left Main The left main was normal. Left Anterior Descending There was mild diffuse disease of the proximal segment of the left anterior descending artery (LAD) and it was calcified. The LAD was large. The mid 2 segment of the LAD had mild diffuse disease. The previously placed stent is patent. Left Circumflex There was mild diffuse disease of the proximal segment of the left circumflex artery (LCX). The LCX was large. There was mild diffuse disease of the entire vessel segment of the first obtuse marginal branch (OM1) of the LCX. The OM1 was large. Right Coronary Artery There was mild diffuse disease of the proximal segment of the right coronary artery (RCA) and it was ectatic. The RCA was large. The mid segment of the RCA had a long segmental 30% stenosis. The previously placed stent is patent. There also was mild diffuse disease of the distal segment of the RCA. There was mild diffuse disease of the entire vessel segment of the right posterior descending branch (RPDA) of the RCA. The RPDA was moderate in size. Conclusions: * Nonobstructive coronary artery disease * In comparison to final angios obtained following interventions in Jun 2008, the mild narrowing (~30%) within the RCA Stent. There is no significant changes noted. Pending Studies and Lab Data: None Discharge Conditions/Prognosis: Stable Discharge to: Home Updated Allergies/ADRs: Allergies Allergen Reactions ??? Erythromycin Base CIS - Unknown ??? Sulfa (Sulfonamide Antibiotics) Immunizations Given this Hospitalization: Immunization History Administered Date(s) Administered ??? Influenza Vaccine, Whole 03/18/2008, 04/09/2009 ??? Pneumococcal Polyvalent 23 04/09/2009 Discharge Medications: Your Medications Notice Some of the medications listed here do not show instructions, such as how often to take the medication. Ask your doctor or nurse how to use these medications. Specifically ask about these and similar medications: - lisinopril (PRINIVIL;ZESTRIL) 20 mg tablet - atorvastatin (LIPITOR) 80 mg tablet New Medications Dose Details nitroGLYcerin 0.4 mg Subl Commonly known as: NITROSTAT Place 1 tablet under the tongue every 5 minutes as needed for Chest pain. 0.4 mg Quantity: 90 tablet Refills: 12 Continued medications, unchanged Dose Details aspirin 325 mg Tbec 325 MG = 1 Tablet(s), PO, Once daily Refills: 0 calcium carbonate 500 mg calcium (1,250 mg) Tab Commonly known as: OS-NATALIIA 500 MG = 1 Tablet(s), PO, Three times daily Refills: 0 cholecalciferol (Vitamin D3) 400 unit Tab 400 UNIT = 1 Tablet(s), PO, Three times daily Refills: 0 clobetasol 0.05 % Crea Commonly known as: TEMOVATE Apply topically 2 times daily. Refills: 0 LIPITOR 80 mg Tab Generic drug: atorvastatin Refills: 0 lisinopril 20 mg Tab Commonly known as: PRINIVIL;ZESTRIL Refills: 0 metoprolol succinate 100 mg Tablet sr Commonly known as: TOPROL-XL Take 100 mg by mouth daily. 100 mg Refills: 0 Smoking Status at Discharge: History Smoking status ??? Former Smoker ??? Quit date: 10/01/2004 Smokeless tobacco ??? Never Used Instructions Given to Patient at Discharge: There are no Patient Instructions on file for this visit. General Instructions Cardiology Instructions Call your doctor if: Chest pain, dyspnea, pain or swelling in legs occurs. If you have non-emergent questions between now and the time of your follow up appointments: -During 8am-5pm Tuesday through Tuesday call [phone] to speak with a nurse in the cardiology clinic -All other times call [phone] and ask to speak to the development eng production ski repairer. Return to work/ usual actvities: 1 week as tolerated. No lifting more than 10 pounds until then. Nosoaking R wrist until site healed. Driving: No driving for 48 hours after catheterization. Follow up Appointments: PCP: KAMILLA PIERRE MD ; [phone] . Follow up for other causes of back pain. Cardiology; Dr. Lennon as needed. Discharge References/Attachments None Signed: BELINDA Melgoza Pager [phone] DATE: 10/01/2014 documented in this encounter Discharge Instructions * Discharge Instructions* Amee Rainey PA - 10/01/2014 5:39 PM EDT Cardiology Instructions Call your doctor if: Chest pain, dyspnea, pain or swelling in legs occurs. If you have non-emergent questions between now and the time of your follow up appointments: -During 8am-5pm Tuesday through Tuesday call [phone] to speak with a nurse in the cardiology clinic -All other times call [phone] and ask to speak to the development eng production ski repairer. Return to work/ usual actvities: 1 week as tolerated. No lifting more than 10 pounds until then. Nosoaking R wrist until site healed. Driving: No driving for 48 hours after catheterization. Follow up Appointments: PCP: KAMILLA PIERRE MD ; [phone] . Follow up for other causes of back pain. Cardiology; Dr. Lennon as needed. documented in this encounter Medications at Time of Discharge Medication Sig Dispensed Refills Start Date End Date metoprolol succinate (TOPROL-XL) 100 mg Tablet Sustained [...] 1 Tablet(s), PO, Three times daily 12/23/2009 aspirin 325 mg EC tablet 325 MG = 1 Tablet(s), PO, Once daily 12/23/2009 11/25/2020 lisinopril (PRINIVIL;ZESTRIL) 20 mg tablet 12/23/2009 11/25/2020 atorvastatin (LIPITOR) 80 mg tablet 12/23/2009 11/25/2020 documented as of this encounter Progress Notes * Hallie Clarke RN - 10/01/2014 9:45 PM EDT Pt discharged home with her son. Radial cath site care instructions gone over with pt. AVS gone over with pt. All questions answered. IV's removed. Pt without issue upon discharge. * Barrett De La Rosa MD - 10/01/2014 9:44 PM EDT Cardiology hospitalist cross cover notes I was asked to f/u on her elevated BP (180/107) before d/c home tonight. Pt received her home meds ACEI and BB. Repeat BP at 2130 was 162/73. She has no complaints. Radial access site looks without problems. She felt D/C summary is good enough to the employer (for off from work), did not want new letter. Ferny De La Rosa, Cardiology hospitalist Pager [phone]. documented in this encounter H&P Notes * Amee Rainey PA - 10/01/2014 12:27 PM EDT Cardiology Admission H&P Patient Name: Edwige Davis Date of : 1950 Age: 63 y.o. Hospital Admit Date: 10/01/2014 Inpatient Attending: Triston Tomas MD PCP: KAMILLA PIERRE MD Presenting Diagnosis/Chief Complaint: Back pain/ anginal equal Active Problem List: Active Hospital Problems Diagnosis ??? Dyslipidemia Lab 07/02/08: TC 179, LDL 105, HDL 35, TG 194 Lab 09/19/08: TC 123, LDL 72, HDL 44, TG 100 ??? Depression ??? Hx RI ??? Former smoker ??? PAF (paroxysmal atrial fibrillation) ??? CKD (chronic kidney disease) ??? Impaired fasting glucose ??? Metabolic syndrome ??? Hyperparathyroidism Previous calcium ranged 9.5-10.6 before with a bit low phos 2.1-2.4 and normal Mg 1.2 Lab 08/22/08: PTH 103, Ca 11.7, BUN/Cr 22/1.1 and 24h urine calcium was high at 314 (09/09/08) Lab 09/19/08: Ca 10.5 Lab 12/30/08: Ca 11.2, BUN/Cr 18/1.1, TSH 0.45 Lab 02/20/09-pending PTH sestamibi scan (02/20/09) showed PTH adenoma behind the sternum ??? CAD (coronary artery disease) + inferior STEMI on 06/27/08 s/p RCA and mid LAD stent (bare metal stents due to hx of serious epistaxis) TTE (06/28/08): LV size nl, mild concentric LVH, LVEF 75% w/ inf HK. RV nl. No valve dz. ??? HTN (hypertension) Resolved Hospital Problems Diagnosis Date Resolved No resolved problems to display. History of Present Illness: HPI 63 yo with known Hx RI/ CAD, previous stents had recurrent mid scapular back pain through day 10/10/14 which reminded her of previous anginal equal. A few days ago she was tugged by the dog on a leash and developed :L shoulder and arm pain which persisted for the last three days. 09/30/14 she as at [employer] doing usual amount of physical work mid day when she noticed slow onset ofmid scapular pain. The pain persisted through the evening to/10 at its peak and eventually she came to the local ED by 4am when she still could sleep. Seen at [facility] 10/01/2014 and workup showed a troponin of 0.06 EKG with old inferior Qs and lateral TWI. She was treated with IV MS x 1 and 3 SL NTG then NTG gtt which she feels finally helped and arranged for transfer to [facility]. She was pain free on arrival but needed increased gtt en route. +nausea post MS dose, +headache now Past Medical History: See Problem List Surgical History/Problems: Past Surgical History Procedure Laterality Date ??? Created by interface Posterior mediastinal mass-lymphocele s/p resection Procedure Date: 1991 ??? Created by interface RCA and mid LAD stent placement Procedure Date: 06/27/2008 Significant Family History: No family history on file. Social History: History Social History ??? Marital Status: Spouse Name: N/A Number of Children: N/A ??? Years of Education: N/A Occupational History ??? Not on file. Social History Main Topics ??? Smoking status: Former Smoker Quit date: 10/01/2004 ??? Smokeless tobacco: Never Used ??? Alcohol Use: No ??? Drug Use: Not on file ??? Sexual Activity: Not on file Other Topics Concern ??? Not on file Social History Narrative REVIEW OF SYSTEMS: Review of Systems General: Denies fatigue, unplanned weight loss in the last 6 months, fever, chills, night sweats, recent illness or sick contacts HEENT: acute visual changes, sore throat, congestion Cardiovascular: Denies palpitations, PND/ orthopnea, LE edema, claudication. Respiratory: Denies cough, dyspnea, wheezing, no increased sputum production, hemoptysis GI: Denies dysphagia, abdominal pain, vomiting, hematemesis, diarrhea, melena or bloody stools . Renal: flank pain, renal failure : Denies dysuria, hematuria Musculoskeletal: +limiting arthritis, difficulty with ADLs Neuro: Denies unilateral neurologic deficits, sensory/motor disturbances Hematologic: Denies easy bruising, bleeding disorders. Endocrine: Denies heat/ cold intolerance, polyuria. Psychiatric: Denies abnormal mood changes, persistent emotional problems, +chronic mild depression, Integument: Denies skin cancer, rashes, wounds. Medications: Prescriptions prior to admission Medication Sig Dispense Refill ??? metoprolol succinate (TOPROL-XL) 100 mg Tablet Sustained Release 24 hr Take 100 mg by mouth daily. ??? aspirin 325 mg EC tablet 325 MG = 1 Tablet(s), PO, Once daily ??? lisinopril (PRINIVIL;ZESTRIL) 20 mg tablet ??? atorvastatin (LIPITOR) 80 mg tablet ??? clobetasol (TEMOVATE) 0.05 % cream Apply topically 2 times daily. ??? cholecalciferol, Vitamin D3, 400 unit tablet 400 UNIT = 1 Tablet(s), PO, Three times daily ??? calcium carbonate (OS-NATALIIA) 500 mg (1,250 mg) tablet 500 MG = 1 Tablet(s), PO, Three times daily Allergies: Allergies Allergen Reactions ??? Erythromycin Base CIS - Unknown ??? Sulfa (Sulfonamide Antibiotics) PHYSICAL EXAM: Last set of vital signs: BP 164/84 Pulse 64 Temp(Src) 36.6 ??C (97.9 ??F) (Oral) Resp 16 Ht160 cm (5' 3) Wt 84.7 kg (186 lb 11.7 oz) BMI 33.09 kg/m2 SpO2 98% Physical Exam General: NAD, AAOx3, appropriate, obese HEENT: NC/AT, anicteric sclerae, PER, Neck: Elevated JVP Lungs: clear without W/R/R CV: RRR, S1, S2, no M/R/G Abd: Nl BS, soft, NT, ND, obese Ext: no C/C; no Edema Vascular: 2+ radial,, and intact distal pulses b/l No R femoral bruits, R karen test normal Neuro: Ambulatory Diagnostics: I have independently visualized the following studies: ECG: SR/ 66, ?anterior Qs, old inferior Qs, old Lateral TWI LABS: WBC 6.82 Hgb 13.3 Hct 39.4 Plt 219 PT 10.3 INR 1 Na 142 K 3.8 BUN 20 Cr 1.4 Gluc 115 Mag 1.8 BNP 919 #1 Troponin 0.03 negative ASSESSMENT: 63 yo wf with known CAD, hx RI, previous BMS (nosebleeds) to RCA and LAD, separate procedures, in 06/24. with recurrent scapular back pain similar to her previous angina. TREATMENT PLAN: Scaplular pain consistent with previous anginal equal though prolonged pain and (now resolved) withnegative cardiac enzymes Echo done with formal read pending [facility] today for definitive diagnosis Other non cardiac MS pain consistent with strain/ injury report HTN Continue home meds HLP high dose atorvastatin at home Pre DM follow up labs CKD 3 Fluids started Provider: BELINDA Melgoza 10/01/2014 Associated attestation - Triston Tomas MD - 10/01/2014 4:43 PM EDT Cardiology Attending Addendum I shared this visit with BELINDA Rainey and guided the medical decision- making. We discussed rationale and risks/benefits of stress test and coronary angiogram and patient agreed to coronary angiography which did not reveal any significant coronary stenosis to warrant PCI (and not sufficient to be a cause for resting angina). Furthermore, on exam her back pain can be elicited/worsened by localpressure and appears musculoskeletal. Cardiac catheterization was just completed via right radial approach. If uncomplicated recovery, patient may be able to be discharged to home. documented in this encounter Plan of Treatment Scheduled Orders Name Type Priority Associated Diagnoses Orde r Schedule EKG 12 Lead ECG Routine Chest tightness or pressure One Time for 1 Occurrences starting 10/02/2014 until 10/02/2014 documented as of this encounter Procedures Procedure Name Priority Date/Time Associated Diagnosis Comments STEEL DIE PRESS SET UP OPERATOR SCAN 10/02/2014 12:00 AM EDT CARDIAC CATHETERIZATION Routine 10/02/19 15 4:27 PM EDT ECHOCARDIOGRAM TRANSTHORACIC Routine 10/01/2014 2:12 PM EDT ACS (acute coronary syndrome) CARDIAC ENZYMES ([facility]) STAT 10/01/2014 1:46 PM EDT EKG 12-LEAD STAT 10/01/2014 11:39 AM EDT Chest tightness or pressure documented in this encounter Results * SCAN DOC: STEEL DIE PRESS SET UP OPERATOR (10/02/2014 12:00 AM EDT) Anatomical Region Laterality Modality Other Scanning Provider MEDIA MGR SCAN EXT O RDR/RSLT * CARDIAC CATHETERIZATION (10/01/2014 4:27 PM EDT) Anatomical Region Laterality Modality Other Narrative 10/01/2014 4:54 PM EDT ?[facility] [place] ? Cardiac Catheterization/Intervention Report ? Patient Name: Josuéfrancisdylan, Edwige D. ? Procedure Date: 10/01/2014 ? A #: [id number] ? Primary Physician: Weaver, Neil V ? Case #: [id number] ? File Name: [id number] ? Catheterization Order Number: [id number] ? [facility] ? Final Report [place], [place] ? Patient Name: ? Edwige Davis ?ID#: ?[id number] ? : ?1950 ? Procedure Date: ? October 01, 2014 ? Case #: ? [id number] ? Room: ? 1 ? Case Physician: ? Neil Weaver M.D. ? Start: ?15:34 ?Fellow: ? Karen Doran M.D. ? Admission: ??10/01/2014 ? Referring ? Luis Arauz M.D. ? Physicians: ?Kamilla Pierre, ManoharD. ? Procedures: ?* Coronary Angiography ?* Left Heart Catheterization ? History ?Edwige EarlyBabar Davis is a 63 year old woman. She has a family history of ?coronary artery disease. The patient has a history of smoking. She has ?hypercholesterolemia. The patient has a prior history of coronary artery ?disease. She is also status post a remote myocardial infarction. Prior to ?the initiation of this procedure, the patient was designated as ASA Class ?IV. ? Patient Status at Catheterization: ?The patient presented with: non-STEMI. [place] [employer] ?angina class was III. This patient was on beta blockers and nitrates ?prior to the procedure. No stress or imaging studies were performed prior ?to this procedure ? Technique: ?A 6Fr sheath was inserted in the right radial artery utilizing the ?Seldinger technique. The left coronary artery was injected utilizing a ?5Fr Delvin Radial catheter. A 5Fr Delvin Radial catheter was used to inject ?the right coronary artery. The left ventricle was injected utilizing a ?5Fr Delvin Radial catheter. A total of 100cc of Omnipaque were opened, ?37cc of Omnipaque were administered and 63cc of Omnipaque were wasted. ?Radiation: Fluoro time was 5.0 minutes, dose area product was 53,368 ?mGYcm2 and air kerma was 818 mGY. ?The patient received the following medications prior to and during the ?procedure: Unfractionated Heparin (any). ? Hemodynamics: ?Left Heart Pressures ? Resting: ? Syst Diast ? EDP ?a ?v ? m ?Ao 179 ?? 89 ?126 ?LV 183 ? 16 ? Coronary Angiography: ?Dominance: Right ?Left Main ? The left main was normal. ?Left Anterior Descending ? There was mild diffuse disease of the proximal segment of the left ? anterior descending artery (LAD) and it was calcified. ??The LAD was ? large. ??The mid 2 segment of the LAD had mild diffuse disease. ??The ? previously placed stent is patent. ?Left Circumflex ? There was mild diffuse disease of the proximal segment of the left ? circumflex artery (LCX). ??The LCX was large. ? There was mild diffuse disease of the entire vessel segment of the ? first obtuse marginal branch (OM1) of the LCX. ??The OM1 was large. ?Right Coronary Artery ? There was mild diffuse disease of the proximal segment of the right ? coronary artery (RCA) and it was ectatic. ??The RCA was large. ??The ? mid segment of the RCA had a long segmental 30% stenosis. ??The ? previously placed stent is patent. There also was mild diffuse ? disease of the distal segment of the RCA. ? There was mild diffuse disease of the entire vessel segment of the ? right posterior descending branch (RPDA) of the RCA. ??The RPDA was ? moderate in size. ? Conclusions: ?* Nonobstructive coronary artery disease ?* In comparison to final angios obtained following interventions in Dec ?2008, the mild narrowing (~30%) within the RCA Stent. ??There is no ?significant changes noted. ? Complications/Events: ?The patient had no complications during these procedures. ? Recommendations: ?Based upon the results of this procedure, it was recommended that medical ?therapy be considered. ? Comments: ?Radial Access ?Access was obtained in the right/left radial artery using micropuncture ?technique after confirming a normal Allens test. ??A 0.035 Versicor wire ?was used to navigate the aortic arch vessels and to track a 5Fr ??Delvin ?catheter to the aortic root. ?? At the conclusion of the case, all sheaths ?and catheters were removed and a Vascular Band was applied for hemostasis ?over the radial access site. ??Neurovascular supply to the hand was intact ?at the conclusion of the case. ?The attending physician was present for the entire procedure. ?Dr. eNil Weaver M.D. performed the coronary angiography and left heart ?catheterization. ? Neil Weaver M.D. ? Electronically Signed by: Neil Weaver M.D. ? Report Finalized: 10/01/2014 ??16:48 ? Procedure Note Neil Weaver MD - 10/01/2014 [facility] [place] Cardiac Catheterization/Intervention Report Patient Name: Edwige Davis Procedure Date: 10/01/2014 A #: [id number] Primary Physician: Neil Weaver V Case #: [id number] File Name: [id number] Catheterization Order Number: [id number] [facility] FinalReport [place], [place] Patient Name: Edwige Davis ID#:[id number] :1950 Procedure Date: October 01, 2014 Case #: [id number] Room: 1 Case Physician: Neil Weaver M.D. Start: 15:34 Fellow: Karen Doran M.D. Admission:10/01/2014 Referring Luis Arauz M.D. Physicians: Kamilla D Fine, M.D. Procedures: * Coronary Angiography * Left Heart Catheterization History Edwige Davis is a 63 year old woman. She has a family historyof coronary artery disease. The patient has a history of smoking. Shehas hypercholesterolemia. The patient has a prior history of coronaryartery disease. She is also status post a remote myocardial infarction.Prior to the initiation of this procedure, the patient was designated as ASAClass IV. Patient Status at Catheterization: The patient presented with: non-STEMI. [facility] This patient was on beta blockers and nitrates prior to the procedure. No stress or imaging studies were performedprior to this procedure Technique: A 6Fr sheath was inserted in the right radial artery utilizing the Seldinger technique. The left coronary artery was injected utilizinga 5Fr Delvin Radial catheter. A 5Fr Delvin Radial catheter was used toinject the right coronary artery. The left ventricle was injected utilizinga 5Fr Delvin Radial catheter. A total of 100cc of Omnipaque wereopened, 37cc of Omnipaque were administered and 63cc of Omnipaque werewasted. Radiation: Fluoro time was 5.0 minutes, dose area product was 53,368 mGYcm2 and air kerma was 818 mGY. The patient received the following medications prior to and duringthe procedure: Unfractionated Heparin (any). Hemodynamics: Left Heart Pressures Resting: Syst Diast EDP a v m Ao 179 89 126 LV 183 16 Coronary Angiography: Dominance: Right Left Main The left main was normal. Left Anterior Descending There was mild diffuse disease of the proximal segment of theleft anterior descending artery (LAD) and it was calcified. The LADwas large. The mid 2 segment of the LAD had mild diffuse disease.The previously placed stent is patent. Left Circumflex There was mild diffuse disease of the proximal segment of theleft circumflex artery (LCX). The LCX was large. There was mild diffuse disease of the entire vessel segment ofthe first obtuse marginal branch (OM1) of the LCX. The OM1 waslarge. Right Coronary Artery There was mild diffuse disease of the proximal segment of theright coronary artery (RCA) and it was ectatic. The RCA was large.The mid segment of the RCA had a long segmental 30% stenosis. The previously placed stent is patent. There also was mild diffuse disease of the distal segment of the RCA. There was mild diffuse disease of the entire vessel segment ofthe right posterior descending branch (RPDA) of the RCA. The RPDAwas moderate in size. Conclusions: * Nonobstructive coronary artery disease * In comparison to final angios obtained following interventions inDec 2007, the mild narrowing (~30%) within the RCA Stent. There is no significant changes noted. Complications/Events: The patient had no complications during these procedures. Recommendations: Based upon the results of this procedure, it was recommended thatmedical therapy be considered. Comments: Radial Access Access was obtained in the right/left radial artery usingmicropuncture technique after confirming a normal Allens test. A 0.035 Versicorwire was used to navigate the aortic arch vessels and to track a 5FrJacky catheter to the aortic root. At the conclusion of the case, allsheaths and catheters were removed and a Vascular Band was applied forhemostasis over the radial access site. Neurovascular supply to the hand wasintact at the conclusion of the case. The attending physician was present for the entire procedure. Dr. Neil Weaver M.D. performed the coronary angiography and leftheart catheterization. Neil Weaver M.D. Electronically Signed by: Neil Weaver M.D. Report Finalized: 10/01/2014 16:48 Triston Tomas MD CARDIAC CATH ORDERAB LES * Echocardiogram Transthoracic(Leb) (10/01/2014 2:12 PM EDT) [facility] EF 70 HEARTFriendly Score SYSTEM Anatomical Region Laterality Modality Other 10/01/2014 Narrative 10/01/2014 2:56 PM EDT Procedure: ? Transthoracic Echocardiogram Patient: ? BOURGEOIS EDWIGE D ? (Age): 1950(63) Med Rec#: ?[id number] ? Sex: ?F ? Site Loc: ?[facility] ? Ht / Wt: ??160(cm)/85(kg) Pt. Loc: ? Adult Floor ?BSA: ?1.94 Study Date: ?10/01/2014 ? Pt. Type: Inpatient Tape: ? Referring: Triston Tomas ([id number]) Eyelet Row Marker: Francois Herrera Diagnosis:CPT Code(s): ??Echo Full (51857), ??Spectral Doppler (66165), Color Doppler (38481), Indication(s): ??CAD, H/O Rhythm: Sinus HR ?BP ?164/84 ?? SUMMARY: 1. The left ventricular chamber size is normal. There is asymmetric septal hypertrophy of the proximal septum with no evidence of LVOT obstruction to flow. There are no left ventricular segmental wall motion abnormalities. Global left ventricular systolic function appears hyperdynamic. ??Ejection fraction is estimated to be 75%. Doppler assessment is consistent with elevated left sided filling pressure. 2. The right ventricle is normal in size. There is mild right ventricular hypertrophy observed. ??Right ventricular global systolic function is normal. 3. There is no hemodynamically significant valve disease. 4. See remainder of report for additional findings. FINDINGS: Study Quality ?Technically limited Left Ventricle ?The left ventricular chamber size is normal. ?Asymmetric septal wall hypertrophy is observed. ?There is no evidence of LVOT obstruction. ?The peak left ventricular outflow tract gradient at rest is 8 mmHg. ?The peak left ventricular outflow tract gradient with Valsalva is 14 mmHg. ?Global left ventricular systolic function appears hyperdynamic. Ejection fraction is estimated to be 75%. ?There are no left ventricular segmental wall motion abnormalities. ?The left ventricular diastolic filling pattern is consistent with impaired LV relaxation. ?Doppler assessment is consistent with elevated left sided filling pressure. Left Atrium ?The left atrium is normal in size. Right Ventricle ?The right ventricle is normal in size. ?There is mild right ventricular hypertrophy observed. ?Right ventricular global systolic function is normal. ?Pulmonary artery hypertension could not be assessed due to inadequate tricuspid regurgitation jet. Right Atrium ?The right atrium is normal in size. Aortic Valve ?The aortic valve is trileaflet. The leaflets are thin with normal excursion. There is no aortic stenosis or regurgitation present. Mitral Valve ?The mitral valve appears normal in structure and function. ?There is trace mitral regurgitation present. Tricuspid Valve ?The tricuspid valve appears normal in structure and function. ?There is trace tricuspid regurgitation present. Pulmonic Valve ?The pulmonic valve appears normal in structure and function. Pericardium ?The pericardium appears normal and there is no evidence of a pericardial effusion. Aorta ?The aortic root is normal in size. ?The ascending aorta is normal in size. Pulmonary Artery ?The main pulmonary artery appears normal. Venous ?The inferior vena cava appears normal in size. ?There is a greater than 50% respiratory change in the inferior vena cava dimension. Misc ?Two-dimensional echo, spectral Doppler and color Doppler performed. Wall Motion: Segment Name ?Rest ? Base-Anteroseptal ?? Normal ? Base-Anterior ? Normal ? Base-Anterolateral ??Normal ? Base-Posterolateral Normal ? Base-Inferior ? Normal ? Base-Inferoseptal ?? Normal ? Mid-Anteroseptal ?Normal ? Mid-Anterior ?Normal ? Mid-Anterolateral ?? Normal ? Mid-Posterolateral ??Normal ? Mid-Inferior ?Normal ? Mid-Inferoseptal ?Normal ? [place]-Septal ? Normal ? [place]-Anterior ? Normal ? [place]-Lateral ?Normal ? [place]-Inferior ? Normal ? [place]-Tip ?Normal ? Chambers ?Value ?Units (Range) ? IVSd 2D ? 1.6 ?cm ? LVIDd 2D ?3.7 ?cm ? PWd 2D ?0.9 ?cm ? LVIDs 2D ?2.6 ?cm ? LVFS 2D ? 30 ? % ? LA area ? 16 ? cm2 (<21) ? RA area ? 11 ? cm2 (<18) ? Ao root ? 3.1 ?cm (2.1 to 3.6) ? Asc Ao ?3.3 ?cm (2 to 3.5) ? Aortic Valve ?Value ?Units (Range) ? Mitral Valve ?Value ?Units (Range) ? E peak ?0.79 ? m/sec ? E/A ratio ? 0.9 ?ratio ? MVDT ?286 ?msec ? E1 ?0.04 ? m/sec ? E/E1 ?20 ? ratio ? This report has been electronically signed by: Han Andrade MD ? 10/01/2014 14:55:47 Images reviewed and interpretation verified [facility] Cardiac Ultrasound [facility] Procedure Note Han Andrade MD - 10/01/2014 Procedure: Transthoracic Echocardiogram Patient: MODESTA Early DOB(Age): 1950(63) Med Rec#: [id number] Sex: F Site Loc: [facility] Ht / Wt: 160(cm)/85(kg) Pt. Loc: Adult Floor BSA: 1.94 Study Date: 10/01/2014 Pt. Type: Inpatient Tape: Referring: Triston Tomas ([id number]) Eyelet Row Marker: Francois Herrera Diagnosis:CPT Code(s): Echo Full (60784), Spectral Doppler (35020), Color Doppler (02106), Indication(s): CAD, H/O Rhythm: Sinus HR BP 164/84 SUMMARY: 1. The left ventricular chamber size is normal. There is asymmetric septal hypertrophy of the proximal septum with no evidence of LVOT obstruction to flow. There are no left ventricular segmental wall motion abnormalities. Global left ventricular systolic function appears hyperdynamic. Ejection fraction is estimated to be 75%. Doppler assessment is consistent with elevated left sided filling pressure. 2. The right ventricle is normal in size. There is mild right ventricular hypertrophy observed. Right ventricular global systolic function is normal. 3. There is no hemodynamically significant valve disease. 4. See remainder of report for additional findings. FINDINGS: Study Quality Technically limited Left Ventricle The left ventricular chamber size is normal. Asymmetric septal wall hypertrophy is observed. There is no evidence of LVOT obstruction. The peak left ventricular outflow tract gradient at rest is 8 mmHg. The peak left ventricular outflow tract gradient with Valsalva is 14 mmHg. Global left ventricular systolic function appears hyperdynamic. Ejection fraction is estimated to be 75%. There are no left ventricular segmental wall motion abnormalities. The left ventricular diastolic filling pattern is consistent with impaired LV relaxation. Doppler assessment is consistent with elevated left sided filling pressure. Left Atrium The left atrium is normal in size. Right Ventricle The right ventricle is normal in size. There is mild right ventricular hypertrophy observed. Right ventricular global systolic function is normal. Pulmonary artery hypertension could not be assessed due to inadequate tricuspid regurgitation jet. Right Atrium The right atrium is normal in size. Aortic Valve The aortic valve is trileaflet. The leaflets are thin with normal excursion. There is no aortic stenosis or regurgitation present. Mitral Valve The mitral valve appears normal in structure and function. There is trace mitral regurgitation present. Tricuspid Valve The tricuspid valve appears normal in structure and function. There is trace tricuspid regurgitation present. Pulmonic Valve The pulmonic valve appears normal in structure and function. Pericardium The pericardium appears normal and there is no evidence of a pericardial effusion. Aorta The aortic root is normal in size. The ascending aorta is normal in size. Pulmonary Artery The main pulmonary artery appears normal. Venous The inferior vena cava appears normal in size. There is a greater than 50% respiratory change in the inferior vena cava dimension. [facility] Two-dimensional echo, spectral Doppler and color Doppler performed. Wall Motion: Segment Name Rest Base-Anteroseptal Normal Base-Anterior Normal Base-Anterolateral Normal Base-Posterolateral Normal Base-Inferior Normal Base-Inferoseptal Normal Mid-Anteroseptal Normal Mid-Anterior Normal Mid-Anterolateral Normal Mid-Posterolateral Normal Mid-Inferior Normal Mid-Inferoseptal Normal [place]-Septal Normal [place]-Anterior Normal [place]-Lateral Normal [place]-Inferior Normal [place]-Tip Normal Chambers Value Units (Range) IVSd 2D 1.6 cm LVIDd 2D 3.7 cm PWd 2D 0.9 cm LVIDs 2D 2.6 cm LVFS 2D 30 % LA area 16 cm2 (<21) RA area 11 cm2 (<18) Ao root 3.1 cm (2.1 to 3.6) Asc Ao 3.3 cm (2 to 3.5) Aortic Valve Value Units (Range) Mitral Valve Value Units (Range) E peak 0.79 m/sec E/A ratio 0.9 ratio MVDT 286 msec E1 0.04 m/sec E/E1 20 ratio This report has been electronically signed by: Han Andrade MD 10/01/2014 14:55:47 Images reviewed and interpretation verified [facility] Triston Tomas MD ECHO ORDERABLES * Cardiac Enzymes (10/01/2014 1:46 PM EDT) Troponin-T <0.03 <=0.03 ng/mL Go Vocab Comment: 0.03 ng/mL: Represents the 99th percentile upper reference limit for normals. >0.03 ng/mL: Elevated cardiac troponin T level indicative of myocardial damage. Diagnosis of acute, evolving or recent RI requires a typical rise and gradual fall of cTnT with at least ONE of the following: a) Ischemic symptoms b) Development of pathologic Q waves on the ECG c) ECG changes indicative of eschemia (S-T segment elevation/depression) d) Coronary artery intervention Serial bloods should be obtained for testing on admission, at 6 to 9 hrs and again at 12 to 24 hrs if earlier samples are negative and the clinical index of suspicion is high. Reference: [Myocardial infarction redefined? a consensus document of the Joint Society of Cardiology/[place] College [employer] Cardiology Committee for the redefinition of myocardial infarction. ??Journal of the [place] College [employer]iology 2000; 36: 959-969] CK, Total 96 0 - 160 unit/L [employer] Blood specimen (specimen) 10/01/2014 1:46 PM EDT 10/01/2014 1:58 PM EDT Narrative Resulting Agency Comment Spec In Lab Triston Tomas MD CHEMISTRY ORDERABLES MARCIA CABRERA * EKG 12 Lead (10/01/2014 11:39 AM EDT) Ventricular rate 64 BPM MUSE SYSTEM Atrial Rate 64 BPM MUSE SYSTEM P-R Interval 168 ms MUSE SYSTEM QRS Duration 82 ms MUSE SYSTEM Q-T Interval 452 ms MUSE SYSTEM QTC Calculated (Bezet) 466 ms MUSE SYSTEM Calculated P [place] 48 degrees MUSE SYSTEM Calculated R [place] 37 degrees MUSE SYSTEM Calculated T [place] 139 degrees MUSE SYSTEM INTERPRETATION Normal sinus rhythm Cannot rule out Inferior infarct , age undetermined Anterior infarct , age undetermined T wave abnormality, consider lateral ischemia Abnormal ECG When compared with ECG of 16-JUN-2009 10:30, Anterior infarct is now Present T wave amplitude has decreased in Anterior leads Confirmed by MD OSMAN, RICHARD ([id number]) on 10/01/2014 12:48:14 PM MUSE SYSTEM 10/01/2014 11:3 9 AM EDT 10/01/2014 12:48 PM EDT Triston Tomas MD ECG ORDERABLES MUSE SYSTEM documented in this encounter Visit Diagnoses Not on filedocumented in this encounter Administered Medications Inactive Administered Medications - up to 3 most recent administrations Medication Order MAR Action Action Date Dose Rate Site heparin (porcine) injection ONCE PRN, Starting on Tue10/01/14 at 1612, Until Tue10/01/14 at 1745, Cath (Intra-Procedure), Routine Given 10/01/2014 4:12 PM EDT 4,000 Units iohexol (OMNIPAQUE) 350 mg/mL solution ONCE PRN, Starting on Tue10/01/14 at 1626, Until Tue10/01/14 at 1745, Cath (Intra-Procedure), Routine Given 10/01/2014 4:26 PM EDT 37 mLs nitroGLYCerin 100 mcg/mL intracoronary dilution ONCE PRN, Starting on Tue10/01/14 at 1608, Until Tue10/01/14 at 1745, Cath (Intra-Procedure), Routine Given 10/01/2014 4:08 PM EDT 200 mcg sodium chloride 0.9% infusion ONCE PRN, Starting on Tue10/01/14 at 1625, Until Tue10/01/14 at 1745, Cath (Intra-Procedure) Given 10/01/2014 4:25 PM EDT 150 mLs verapamil (ISOPTIN) injection ONCE PRN, Starting on Tue10/01/14 at 1606, Until Tue10/01/14 at 1743, Administer over 2 Minutes, Cath (Intra-Procedure) Given 10/01/2014 4:06 PM EDT 2.5 mg documented in this encounter Active and Recently Administered Medications Times are shown in EDT. Scheduled Medication Order 09/29/2014 09/30/2014 10/01/2014 atorvastatin (LIPITOR) tablet 80 mg (CANCELED) 80 mg, Oral, EVERY EVENING, First dose on Tue10/01/14 at 1700, Until Discontinued, Routine 2031 (Given - Provid er: Hallie Clarke RN) diaZEPam (VALIUM) tablet 5 mg (COMPLETED) 5 mg, Oral, ONCE, 1 dose, On Tue10/01/14 at 1530, Cath (Day of Procedure), Routine 150 (Given - Provid er: Mabel Scales RN) diphenhydrAMINE (BENADRYL) capsule 25 mg (COMPLETED) 25 mg, Oral, ONCE, 1 dose, On Tue10/01/14 at 1530, Cath (Day of Procedure), Routine 150 (Given - Provid er: Mabel Scales RN) lisinopril (PRINIVIL;ZESTRIL) tablet 20 mg (CANCELED) 20 mg, Oral, DAILY, First dose on Tue10/01/14 at 1700, Until Discontinued, Routine 1653 (Given - Provid er: Ronald Smiley RN) metoprolol succinate (TOPROL-XL) XL tablet 100 mg (CANCELED) 100 mg, Oral, DAILY, First dose on Tue10/01/14 at 1700, Until Discontinued, Routine 1653 (Given - Provid er: Ronald Smiley RN) sodium chloride 0.9 % flush 5 mL (CANCELED) 5 mL, Intravenous, 2 TIMES DAILY, First dose on Tue10/01/14 at 2100, Until Discontinued, Routine 2032 (Given - Provid er: Hallie Clarke RN) Continuous Medication Order 09/29/2014 09/30/2014 10/01/2014 sodium chloride 0.9% infusion (CANCELED) 200 mL/hr, Intravenous, CONTINUOUS, Starting on Tue10/01/14 at 1515, Until Tue10/01/14 at 1640 1515 (New Bag - Prov ider: Mabel Scales RN)1600 (Stopped - Provider: Asher Sheppard) sodium chloride 0.9% infusion 100 mL/hr, Intravenous, CONTINUOUS, Starting on Tue10/01/14 at 1700, Until Tue10/01/14 at 2059 1707 (New Bag - Prov ider: Ronald Smiley RN) PRN Medication Order 09/29/2014 09/30/2014 10/01/2014 acetaminophen (TYLENOL) tablet 650 mg (CANCELED) 650 mg, Oral, EVERY 4 HOURS PRN, Starting on Tue10/01/14 at 1453, Until 10/02/14 at 0013, Pain, Headaches, Maximum dose of acetaminophen is 4000 mg from all sources in 24 hours., Routine 1934 (Given - Provid er: Hallie Clarke RN) heparin (porcine) injection (CANCELED) ONCE PRN, Starting on Tue10/01/14 at 1612, Until Tue10/01/14 at 1745, Cath (Intra-Procedure), Routine 161 (Given - Provid er: Neil Salinas MD) iohexol (OMNIPAQUE) 350 mg/mL solution (CANCELED) ONCE PRN, Starting on Tue10/01/14 at 1626, Until Tue10/01/14 at 1745, Cath (Intra-Procedure), Routine 162 (Given - Provid er: Neil Salinas MD) nitroGLYcerin (NITROSTAT) SL tablet 0.4 mg 0.4 mg, Sublingual, EVERY 5 MIN PRN, Starting on Tue10/01/14 at 1453, Until 3/18/15 at 0013, Chest pain, May repeat every 5 minutes for a total of three doses. Notify provider if chest pain not relieved with nitroglycerin. Do not administer nitroglycerin if the patinet has received or taken phosphodiesterase (PDE-5) inhibitors such as sildenafil, tadalafil or vardenafil within the last 24 to 72 hours., Routine nitroGLYCerin 100 mcg/mL intracoronary dilution (CANCELED) ONCE PRN, Starting on Tue10/01/14 at 1608, Until Tue10/01/14 at 1745, Cath (Intra-Procedure), Routine 1608 (Given - Provid er: Neil Salinas MD) sodium chloride 0.9% infusion (CANCELED) ONCE PRN, Starting on Tue10/01/14 at 1625, Until Tue10/01/14 at 1745, Cath (Intra-Procedure) 1625 (Given - Provid er: Neil Salinas MD) verapamil (ISOPTIN) injection (CANCELED) ONCE PRN, Starting on Tue10/01/14 at 1606, Until Tue10/01/14 at 1743, Administer over 2 Minutes, Cath (Intra-Procedure) 1606 (Given - Provid er: Neil Salinas MD) documented in this encounter Care Teams Fundraiser Relationship Specialty Start Date End Date Kamilla Pierre MD [address] [place] [address] PCP - General 02/13/13 11/24/20 documented as of this encounter
--- OUTSIDE RECORDS SUMMARY | 2024-02-15 14:58 | XMS_ITS | Encounter Summary ---
Author Organization [facility] Address [address] [place] [address] Care Team Providers Care Fingernail Technician Name Role Phone Bayron Esther EDWARD Primary Care Provider Pj Bourne MD Unavailable [phone] Encounter Details Date Type Department Care Team (Late st Contact Info) Description 11/17/2022 Radiation Therapy Visit [facility] Cancer Center Radiation Oncology - [address] [address] Pj Bourne MD [address] [place] [address], Level 2 [place] [address] 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-CMS) (Primary Dx) Social History Tobacco Use Types [...] as of this encounter Progress Notes * Pj Bourne MD - 11/17/2022 1417 EDT DIVISION OF RADIATION ONCOLOGY- SABR ON TREATMENT VISIT NOTE Diagnosis: Cancer Staging 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-CMS) Staging form: Lung, AJCC 8th Edition - Clinical: Stage IA2 (cT1b, cN0, cM0) - Signed by Pj Bourne MD on 09/13/2022 Date: 11/17/22 Preparation for SBRT Treatment Treatment planning was performed in advance of this SBRT treatment delivery. Prior to this treatment, the physicist analyzed the set-up for potential collisions of the apparatus with the patient, treatment couch, or other devices and the appropriate modifications were made. QA was performed by physics staff. Pre-Treatment Assessment The dose to date is 5500 cGy. The planned total dose is 5500 cGy in 5 fractions of 1100 cGy each. cGy. The patient's baseline performance status was: ECOG performance Status: (0) Fully active, able to carry on all predisease performance without restriction Procedure Summary The patient was escorted to the treatment room and the therapist positioned the patient in the prescribed treatment position on the treatment table. The following immobilization system was used: Vac Lock. Prior to treatment, CBCT was acquired, and compared to planning CT dataset. All required adjustments to the patient's position were made, repeat imaging was performed as needed. All images are date and time stamped at the time of aquisition. The following method, used to account for respiratory motion or other types of patient motion was used: 4-D CT at time of simulation. During the treatment delivery patient position was continuously monitored. If the patient coughed or shifted position, the treatment was interrupted and the patient was re localized as needed. The following ongoing images were taken during the treatment: Monitoring with VisionRT. I remained available in the department, throughout the delivery of the radiation treatment. I was available to treating therapists to oversee adjustments in response to patient motion, target movement, or equipment issues to ensure accuracy and safety if needed. Subjective: na Objective: []No skin changes in treatment field. [x]Exam deferred Other: Plan of Care The plan of care is to continue treatment as planned. Follow up plan is CT chest in 6 months with follow up visit. This has been scheduled. Signed By: Pj Bourne MD documented in this encounter Miscellaneous Notes * Treatment Summary - Pj Bourne MD - 11/17/2022 1417 EDT Images from the original note were not included. Division of Radiation Oncology Treatment Summary Diagnosis: Cancer Staging 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-CMS) Staging form: Lung, AJCC 8th Edition - Clinical: Stage IA2 (cT1b, cN0, cM0) - Signed by Pj Bourne MD on 09/13/2022 Edwige Davis was treated with SABR radiation according to the following parameters. Treatment Course: Radiation Treatments Active RUL SABR (Started on 11/08/2022) Most recent fraction: 1,100 cGy given on 11/17/2022 Total given: 5,500 cGy / 5,500 cGy (5 of 5 fractions) Elapsed Days: 9 Technique: SABR Energy: 6 MV photons Treatment Status: complete as planned Treatment response: Too early to assess Tolerance: Pateint tolerated treatment without difficulty Disposition: Follow up in [address] chest, This is scheduled for May 2023 Pj Bourne MD documented in this encounter Plan of Treatment Upcoming Encounters Date Type Department Care Team (Late st Contact Info) Description 06/08/2024 13:30 EST Appointment [facility] Radiology CT Outpatient - [address] [id number] 06/08/2024 14:30 EST Office Visit [facility] Cancer Center Radiation Oncology - [address] [address] Pj Bourne MD 111 [facility], [facility], [address] [place] [phone] documented as of this encounter Visit Diagnoses Diagnosis 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-CMS)- Primary documented in this encounter Care Teams Fingernail Technician Relationship Specialty Start Date End Date Esther Verma FNP 26 [facility] [address] [place] [address] PCP - General 07/27/22 Pj Bourne MD [address] [place] [address] [address] [place] [address] Radiation Oncology 10/21/22 documented as of this encounter
--- OUTSIDE RECORDS SUMMARY | 2024-02-15 14:58 | XMS_ITS | Encounter Summary ---
Author Organization [facility] Address [address] [place] [address] Care Team Providers Care Call Centre Supervisor Name Role Phone Esther Verma Primary Care Provider [phone] Pj Bourne MD Unavailable [phone] Encounter Details Date Type Department Care Team (Late st Contact Info) Description 12/08/2022 Lab Requisition [facility] Pathology & Laboratory Medicine - [address] [phone] Outr Resulting Lab, Provider Social History Tobacco [...] [facility]ment [facility] Rad[facility] Outpatient - Main [place] [address] [place] [address] 06/08/2024 14:30 EST Office Visit [facility] Cancer Center Radiation Oncology - [address] [phone] Pj Bourne MD 111 [facility], [facility], Level 2 [place] [address] documented as of this encounter Procedures Procedure Name Priority Date/Time Associated Diagnosis Comments CHRONIC HEPATITIS PROFILE, UNKNOWN TYPE Routine 12/07/2022 10:42 EDT documented in this encounter Results * CHRONIC HEPATITIS PROFILE, UNKNOWN TYPE (12/07/2022 10:42 EDT) Hep B Surface Ag Negative Negative 12/10/19 9:46 EDT [facility] Hep B Surface Ab, Quantitative <3.1 See Note mIU/mL 12/09/2022 9:46 EDT [facility] Comment: Reference Range for Hep B Surface Ab, Quant: Positive: >= 10.0 mIU/mL Negative: ??< 10.0 mIU/mL Patient is presumed to not be immune to infection with Hepatitis B Virus. Hep B Surface Ab, Qualitative Negative See Note 12/09/2022 9:46 EDT [facility] Comment: Reference Range for Hep B Surface Ab, Qual: Unvaccinated: ??Negative Vaccinated: ??Positive Hepatitis B Core Ab, Total Negative Negative 12/09/2022 9:46 EDT [facility] Hep C Antibody Negative Negative 12/09/2022 9:46 EDT [facility] Blood VENOUS BLOOD / Unknown 12/07/2022 10:42 EDT 12/08/2022 18:04 EDT Provider Outr Resulting Lab CHEMISTRY & BLOOD GAS ORDERABLES [facility] [address] [place] [address] documented in this encounter Visit Diagnoses Not on filedocumented in this encounter Care Teams Call Centre Supervisor Relationship Specialty Start Date End Date Esther Verma FNP 26 [facility] [address] [place] [phone] PCP - General 07/27/22 Pj Bourne MD [address] [place] [address], [address] 2 [place] [address] Radiation Oncology 10/21/22 documented as of this encounter
--- OUTSIDE RECORDS SUMMARY | 2024-02-15 14:58 | XMS_ITS | Encounter Summary ---
Author Organization [facility] Address [address] [place] [address] Care Team Providers Care Fisher Lampara Net Name Role Phone sEther Verma Primary Care Provider [phone] Pj Bourne MD Unavailable [phone] Reason for Visit * Reason Onset Date Comments Results 05/16/2023 Encounter Details Date Type Department Care Team (Late st Contact Info) Description 05/16/2023 Telephone [facility] Endocrinology - [address] [phone] Stephania Munoz, DO [address] [place] [address] Results Social History Tobacco Use Types Packs/Day Years [...] Miscellaneous Notes * Telephone Encounter - Stephania Munoz DO - 05/16/2023 0910 EDT Phoned patient 05/16/23 regarding her US Thyroid FNA, and she informed me that radiology has scheduled her thyroid biopsy on 06/13/23 for TI-RADS 5 nodule, measuring 1.4 cm in lower pole of left thyroid. Patient amenable to plan of care. All questions answered to patient's satisfaction. Dr. Munoz documented in this encounter Plan of Treatment Upcoming Encounters Date Type Department Care Team (Late st Contact Info) Description 06/08/2024 13:30 EST Appointment [facility] Radiology CT Outpatient - [address] [phone] 06/08/2024 14:30 EST Office Visit [facility] Radiation Oncology - [address] [phone] Pj Bourne MD [address] [place] [phone] documented as of this encounter Visit Diagnoses Not on filedocumented in this encounter Care Teams Fisher Lampara Net Relationship Specialty Start Date End Date Esther Verma FNP [address] [place] [phone] PCP - General 07/27/22 Pj Bourne MD [address] [place] [phone] Radiation Oncology 10/21/22 documented as of this encounter
--- OUTSIDE RECORDS SUMMARY | 2024-02-15 14:58 | XMS_ITS | Encounter Summary ---
Author Organization [facility] Address [address] [place] [address] Care Team Providers Care Wafer Fab Technician Name Role Phone Esther Verma Primary Care Provider [phone] Pj Bourne MD Unavailable [phone] Reason for Referral * Radiology Services (Routine/Next Available) - Authorization Not Required Specialty Diagnoses / Procedures Referred By Contac t Referred To Contact Diagnoses Nontoxic multinodular goiter Procedures US GUIDED NECK FNA Ragini Pérez DO [address] [place] [phone] [facility] Referral ID Status Reason Start Date Expiration Date Visits Requested Visits Authorized [id number] Authorization Not Required 08/30/2023 1 1 Reason for Visit * Radiology Services (Routine/Next Available) - Authorization Not Required Specialty Diagnoses / Procedures Referred By Contdakotah car Referred To Contact Diagnoses Nontoxic multinodular goiter Procedures US GUIDED NECK FNA Ragini Pérez DO [address] [place] [phone] [facility] Referral ID Status Reason Start Date Expiration Date Visits Requested Visits Authorized [id number] Authorization Not Required 08/30/2023 1 1 Encounter Details Date Type Department Care Team (Latest Contact Info) Description 10/13/2023 11:47 EDT - 10/13/2023 23:59 EDT [facility] Radiology [place] - Main [place] [address] [place] [address] Nontoxic multinodular goiter Discharge Disposition: Home or Self Care Social [...] tablet,chewable Take 1 Tablet by mouth daily. dilTIAZem (CARDIZEM CD) 240 mg ER capsule Take 1 Capsule by mouth daily. 06/21/2023 ELIQUIS 5 mg tablet Take 1 Tablet by mouth 2 times daily. 03/01/2020 ergocalciferol, vitamin D2, (VITAMIN D ORAL) Take by mouth. fluorouracil (EFUDEX) 5 % cream APPLY ONE [...] Inject 1.8 mg into the skin daily. lisinopriL (PRINIVIL) 10 mg tablet Take 1 Tablet by mouth daily. 07/06/2023 metoprolol SUCCinate (TOPROL-XL) 50 mg tablet Take 1 Tablet by mouth daily. 150 mg daily 05/31/2023 metoprolol XL (TOPROL-XL) 100 mg tablet Take [...] 1 Tablet by mouth daily. 01/25/2020 02/14/2024 furosemide (LASIX) 40 mg tablet TAKE ONE AND ONE-HALF TABLETS BY MOUTH EVERY MORNING 06/28/2023 02/14/2024 lisinopriL (PRINIVIL) 5 mg tablet Take 1 Tablet by mouth daily. 03/01/2020 02/14/2024 documented as of this encounter Discharge Disposition Disposition Code Departure Means Destination Home or Self Care documented in this encounter Plan of Treatment Upcoming Encounters Date Type Department Care Team (Late st Contact Info) Description 06/08/2024 13:30 EST [facility]ment [facility] Rad[facility] Outpatient - [address] [phone] 06/08/2024 14:30 EST Office Visit [facility] Cancer Center Radiation Oncology - [address] [phone] Pj Bourne MD [address] [place] [address], [address] [place] [phone] documented as of this encounter Procedures Procedure Name Priority Date/Time Associated Diagnosis Comments US GUIDED NECK FNA Routine 10/13/2023 15 :08 EDT Nontoxic multinodular goiter NON DISTRIBUTION A CLASS LINEMAN/FNA CYTOLOGY Routine 10/13/2023 13:03 EDT Nontoxic multinodular goiter documented in this encounter Results * US GUIDED NECK FNA (10/13/2023 15:08 EDT) Anatomical Region Laterality Modality Neck Ultrasound 10/16/2023 19:3 5 EDT Impressions 10/16/2023 19:35 EDT Technically difficult biopsy of the 1.4 cm TI-RADS 5 nodule in the deep inferior aspect of the left thyroid lobe. ??Adequate cellular material for diagnosis was not obtained. [id number] Narrative 10/16/2023 19:35 EDT US GUIDED NECK [...] Adequate cellular material fordiagnosis was not obtained. [id number] Ragini Pérez DO IMG US ORDERABLES * NON DISTRIBUTION A CLASS LINEMAN/FNA CYTOLOGY (10/13/2023 13:03 EDT) Note to Patient The following pathology results have been interpreted by your pathologist and may be available to you before your health provider has had the opportunity to review them. Please allow time for your provider to receive these results and explore management options, if applicable. 10/14/2023 16:32 [facility] Final Diagnosis A. THYROID, LEFT, 1.5 CM NODULE, ULTRASOUND GUIDED FINE NEEDLE ASPIRATION: - Non-diagnostic specimen. See comment. 10/14/2023 16:32 [facility] Diagnosis Comment Aspirate smears are acellular, demonstrating blood only. If clinical suspicion of neoplasm persists, additional sampling should be considered. 10/14/2023 16:32 [facility] Attestation There was significant resident/fellow involvement in the diagnostic evaluation of this case. By the signature below, the attending physician certifies that they have personally conducted a gross and/or microscopic examination of the described specimens and rendered or confirmed the above diagnosis. 10/14/2023 16:32 [facility] at 1632 Rapid Diagnosis A. THYROID, DEEP INFERIOR, LEFT LOBE, 1.5 CM, ULTRASOUND GUIDED FINE NEEDLE ASPIRATION: Evaluation Episode 1: Pass 1-3: Blood only Evaluation Episode 2: Pass 4: Blood only Evaluation Episode 3: Pass 5-7: Essentially blood only Rapid interpretation performed by: Dr. Patrick Blackburn; 10/13/2023; 1430 10/14/2023 16:32 EDT [facility] Clinical History Nontoxic multinodular goiter 10/14/2023 16:32 T [facility] Gross Description A. 9 fixed prepared slides, 2 air dried prepared slides, and 1 tube of CytoLyt were received and processed by selective cellular enhancement technique. 10/14/2023 16:32 T [facility] Resident/Vinny w: Elena Mathis MD 10/14/2023 16:32 T [facility] Performing Lab [facility] 10/14/2023 16:32 T [facility] Scanned Images 10/14/2023 16:32 [facility] Fine Needle Aspirate SPECIMEN FROM THYROID / Unknown 10/13/2023 13:03 EDT 10/13/2023 14:38 EDT Chacorta Scherer MD PATHOLOGY ORDERABLES [facility] [address] [place] [address] documented in this encounter Visit Diagnoses Diagnosis Nontoxic multinodular goiter documented in this encounter Orders Medications Ordered That Mohinder ht Not Have Been Administered Count Last Ordered Date First Ordered Date lidocaine 1 % injection 20 mL 1 10/13/2023 documented in this encounter Care Teams Wafer Fab Technician Relationship Specialty Start Date End Date Esther Verma FNP [address] [place] [phone] PCP - General 07/27/22 Pj Bourne MD [address] [place] [address] [address] [place] [address] Radiation Oncology 10/21/22 documented as of this encounter
--- OUTSIDE RECORDS SUMMARY | 2024-02-15 14:58 | XMS_ITS | Encounter Summary ---
Author Organization [facility] [place] [address] Care Team Providers Care Polysomnographer Name Role Phone Esther Verma APRN Primary Care Provider [phone] Encounter Details Date Type Department Care Team (Late st Contact Info) Description 04/08/2009 Orders [place] [address] Antonio Cox MD [facility] [place] [address] Social History Tobacco Use Types Packs/Day Years Used Date Smoking Tobacco: Never Assessed Sex and Gender Information Value Date Recorded Sex Assigned at Not on file Gender Identity Not on file Sexual Orientation Not on file documented as of this encounter Plan of Treatment Not on file documented as of this encounter Procedures Procedure Name Priority Date/Time Associated Diagnosis Comments SURGICAL PATHOLOGY REPORT Routine 04/08/2009 3:38 PM EDT documented in this encounter Results * Surgical Pathology Report (04/08/2009 3:38 PM EDT) Surgical Pathology Report [id number] ? Location: [facility]; [facility]; A The signing pathologist has (i) examined the relevant preparation(s) for the specimen(s) and (ii) rendered or confirmed the diagnosis(es). . ?Pathology Surgical Pathology Final Report Clinical Information Specimen Submitted: A - Question parathyroid: Anterior neck for frozen section B - Anterior Trachea; Tissue with Thymus, Anterior Neck Clinical History: Stop Plavix 10 days prior, stay on aspirin Clinical Diagnosis: HPT Frozen Section Diagnosis Frozen section(s) performed. ??Please refer to separate electronic frozen section report(s). Gross Description A - Labeled/Fixative: Question parathyroid anterior neck for frozen ?section, fresh. Qty/Size/Weight: ?One, 0.6 x 0.6 x 0.4 cm, 0.12 g. Tissue Description: ?? Dark brown-cortez piece of tissue. ??Sectioning reveals a ?dark blue cut surface. Sections/Processin g: ??Submitted for frozen section, the residue submitted ?in (A1). ??The remainder is submitted in (A2). ??(T2) ?aje/DGW B - Labeled/Fixative: Anterior tracheal tissue with thymus, anterior ?neck, fresh. Tissue Description: ?? Specimen is composed of two pieces of tissue ?loosely sewn together with a stitch; together this piece of tissue measures 2.5 x 2.5 x 1.5 cm. ??In addition, there are three small fragments of tissue measuring in aggregate 1.0 x 1.0 x 0.5 cm. ??Ragged, cortez-red tissue. ??There is no note of orientation for the suture either on the requisition sheet or in the brief operative note, therefore the suture is removed for ease of processing. Sections/Processin g: ??Two larger pieces tied together are submitted ?entirely in (B1-B12); the three smaller pieces ?are submitted entirely in (B13). (T13) ??jlk/DGW Microscopic Description Slides reviewed, microscopic description not recorded. Diagnosis A - Soft Tissue, Anterior Neck, Biopsy: ? Benign lymph node. ? No parathyroid identified. B - Thymus and Soft Tissue, Anterior Neck and Trachea, Excision: ? 1. ??Thymic Remnant. ? 2. ??Ten benign lymph nodes. . Diagnosis ? 3. ??No parathyroid tissue identified. 04/15/09 SBT 04/15/09 Verified by: ? Karime Gong MD. ?Cytopathologist ?(Electronic Signature) The attending pathologist whose signature appears on this report has reviewed all diagnostic slides and has edited the gross and/or microscopic portion of the report in rendering the final pathologic diagnosis. ? Pathology Frozen Section Report Frozen Section Report A - Soft Tissue, Anterior Neck, Biopsy: ? Benign Lymph Node. ? No parathyroid gland identified. SBT 3:59PM_ 04/15/09 ??Verified by: ??Karime Gong MD, Cytopathologist The attending pathologist whose electronic signature appears on this report has reviewed all diagnostic slides in rendering the frozen section diagnosis. This intraoperative consultation should be interpreted as a preliminary diagnosis pending review of the entire specimen and special studies, if any. MARCIA CABRERA 04/08/2009 3:38 PM EDT Antonio Cox MD PATHOLOGY/CYTOLOGY ORDERABLES MARCIA CABRERA documented in this encounter Visit Diagnoses Not on filedocumented in this encounter Care Teams Polysomnographer Relationship Specialty Start Date End Date Esther Verma APRN [address] [place] [address] PCP - General Family Medicine 11/25/20 documented as of this encounter
--- OUTSIDE RECORDS SUMMARY | 2024-02-15 14:58 | XMS_ITS | Encounter Summary ---
Author Organization [facility] Address [address] [place] [address] Care Team Providers Care Construction Project Administrator Name Role Phone Esther Verma Primary Care Provider [phone] Pj Bourne MD Unavailable [phone] Reason for Visit * Reason Onset Date Comments Follow-up 11/18/2022 Encounter Details Date Type Department Care Team (Late st Contact Info) Description 11/18/2022 Telephone [facility] Radiation Oncology - [facility] [address] [place] [address] Melissa Herrera RN [address] [place] [address] Follow-up Social History Tobacco Use Types Packs/Day Years [...] Miscellaneous Notes * Telephone Encounter - Melissa HerreraMERARI - 11/18/2022 1223 EDT I called and spoke with Edwige today for follow up after she had an episode of vertigo with associated N/V in our department yesterday after finishing her SABR radiation treatment. She reports that she vomited once more after returning home and then slept well through the night. She feels much better today. She will notify us with any issues or concerns. documented in this encounter Plan of Treatment Upcoming Encounters Date Type Department Care Team (Late st Contact Info) Description 06/08/2024 13:30 EST Appointment [facility] Radiology CT Outpatient - [address] [phone] 06/08/2024 14:30 EST Office Visit [facility] Radiation Oncology - [address] [phone] Pj Bourne MD [address] [place] [phone] documented as of this encounter Visit Diagnoses Not on filedocumented in this encounter Care Teams Construction Project Administrator Relationship Specialty Start Date End Date Esther Verma FNP [address] [place] [phone] PCP - General 07/27/22 Pj Bourne MD [address] [place] [phone] Radiation Oncology 10/21/22 documented as of this encounter
--- OUTSIDE RECORDS SUMMARY | 2024-02-15 14:58 | XMS_ITS | Encounter Summary ---
Author Organization Formerly [facility] [place] [address] Care Team Providers Care Manager Wound Name Role Phone Kamilla Pierre MD Primary Care Provider [phone] Encounter Details Date Type Department Care Team (Latest Contact Info) Description 10/01/2014 11:12 AM EDT - 10/01/2014 10:03 PM EDT Hospital Encounter Intermediate [place] [address] Triston Tomas MD [facility] [place] [address] Chest tightness or pressure; ACS (acute coronary syndrome); CAD (coronary artery disease) Discharge Disposition: Home Social History Tobacco Use [...] Edwige Davis Patient Age: 63 y.o. Language: Tuvaluan Race: White Ethnicity: Not nor Admit date: 10/01/2014 Discharge date and time: 10/01/2014 Attending Physician: Triston Tomas MD Discharge Physician: Triston Tomas MD Follow-up Recommendations for Providers: 1. reeval for non cardiac causes of CP Inpatient Provider Contact Information: BELINDA Melgoza Armin, MD [phone] Discharge Diagnoses (Hospital Problems) and Secondary Diagnoses (Chronic Problems): Active Hospital Problems Diagnosis ??? Dyslipidemia Lab 07/02/08: TC 179, LDL 105, HDL 35, TG 194 Lab 09/19/08: TC 123, LDL 72, HDL 44, TG 100 ??? Depression ??? Hx [place] ??? Former smoker ??? PAF (paroxysmal atrial [...] of Presentation: 63 yo with known Hx [place]/ CAD, previous stents had recurrent mid scapular [...] The pain persisted through the evening to 04/26 at its peak and eventually she came to the local ED by 4am when she still could sleep. Seen at [facility] 10/01/2014 and workup showed a troponin of 0.06 EKG with old inferior Qs and lateral TWI. She was treated with IV MS x 1 and 3 SL NTG then NTG gtt which she feels finally helped and arranged for transfer to [facility]. She was pain free on arrival but needed increased gtt en route. +nausea post MS dose Hospital Course: On admission to [facility], the patient had no complaints of [...] appointments: -During 8am-5pm Tuesday through Tuesday call [phone] to speak with a nurse in the cardiology clinic -All other times call [phone] and ask to speak to the community health nurse applications systems engineer. Return to work/ usual actvities: 1 week as tolerated. No lifting more than 10 pounds until then. Nosoaking R wrist until site healed. Driving: No driving for 48 hours after catheterization. Follow up Appointments: PCP: KAMILLA PIERRE MD ; [phone] . Follow up for other causes of back pain. Cardiology; Dr. Lennon as needed. Discharge References/Attachments None Signed: BELINDA Melgoza Pager [phone] DATE: 10/01/2014 documented in this encounter Discharge Instructions * Discharge Instructions* Amee Rainey PA - 10/01/2014 5:39 PM EDT Cardiology Instructions Call your doctor if: Chest pain, dyspnea, pain or swelling in legs occurs. If you have non-emergent questions between now and the time of your follow up appointments: -During 8am-5pm Tuesday through Tuesday call [phone] to speak with a nurse in the cardiology clinic -All other times call [phone] and ask to speak to the community health nurse applications systems engineer. Return to work/ usual actvities: 1 week as tolerated. No lifting more than 10 pounds until then. Nosoaking R wrist until site healed. Driving: No driving for 48 hours after catheterization. Follow up Appointments: PCP: KAMILLA PIERRE MD ; [phone] . Follow up for other causes of [...] Ferny De La Rosa, Cardiology hospitalist Pager [phone]. documented in this encounter H&P Notes * [...] 44, TG 100 ??? Depression ??? Hx [place] ??? Former smoker ??? PAF (paroxysmal atrial [...] Illness: HPI 63 yo with known Hx [place]/ CAD, previous stents had recurrent mid scapular [...] pain. The pain persisted through the evening to04/26 at its peak and eventually she came to the local ED by 4am when she still could sleep. Seen at [facility] 10/01/2014 and workup showed a troponin of 0.06 EKG with old inferior Qs and lateral TWI. She was treated with IV MS x 1 and 3 SL NTG then NTG gtt which she feels finally helped and arranged for transfer to [facility]. She was pain free on arrival but [...] 63 yo wf with known CAD, hx [place], previous BMS (nosebleeds) to RCA and LAD, separate procedures, in 06/24. with recurrent scapular back pain similar to her previous angina. TREATMENT PLAN: Scaplular pain consistent with previous anginal equal though prolonged pain and (now resolved) withnegative cardiac enzymes Echo done with formal read pending [facility] today for definitive diagnosis Other non cardiac [...] Procedure Name Priority Date/Time Associated Diagnosis Comments COMPUTER SYSTEMS SUPPORT SPECIALIST SCAN 10/02/2014 12:00 AM EDT CARDIAC CATHETERIZATION Routine 10/02/19 15 4:27 PM EDT ECHOCARDIOGRAM TRANSTHORACIC Routine 10/01/2014 2:12 PM EDT ACS (acute coronary syndrome) CARDIAC ENZYMES ([facility]) STAT 10/01/2014 1:46 PM EDT EKG 12-LEAD STAT 10/01/2014 11:39 AM EDT Chest tightness or pressure documented in this encounter Results * SCAN DOC: COMPUTER SYSTEMS SUPPORT SPECIALIST (10/02/2014 12:00 AM EDT) Anatomical Region Laterality Modality Other Scanning Provider MEDIA MGR SCAN EXT O RDR/RSLT * CARDIAC CATHETERIZATION (10/01/2014 4:27 PM EDT) Anatomical Region Laterality Modality Other Narrative 10/01/2014 4:54 PM EDT ?[facility] ? Cardiac Catheterization/Intervention Report ? Patient Name: Edwige Davis. ? Procedure Date: 10/01/2014 ? A #: [id number] ? Primary Physician: Neil Weaver V ? Case #: [id number] ? File Name: [id number] ? Catheterization Order Number: [id number] ? [facility] ? Final Report [place], [place] ? Patient Name: ? Edwige Davis ?ID#: ?[id number] ? : ?1950 ? Procedure Date: ? October 01, 2014 ? Case #: ? [id number] ? Room: ? 1 ? Case Physician: ? Neil Weaver M.D. ? Start: ?15:34 ?Fellow: ? Karen Doran M.D. ? Admission: ??10/01/2014 ? Referring ? Luis I Arauz, M.D. ? Physicians: ?Kamilla Pierre, M.D. ? Procedures: ?* Coronary Angiography ?* Left [...] at Catheterization: ?The patient presented with: non-STEMI. [employer] ?angina class was III. This [...] was present for the entire procedure. ?Dr. Neil Weaver M.D. performed the coronary angiography and left heart ?catheterization. ? Neil Weaver M.D. ? Electronically Signed by: Neil Weaver M.D. ? Report Finalized: 10/01/2014 ??16:48 ? Procedure Note Neil Weaver MD - 10/01/2014 [facility] Cardiac Catheterization/Intervention Report Patient Name: Edwige Davis Procedure Date: 10/01/2014 A #: [id number] Primary Physician: Neil Weaver V Case #: [id number] File Name: [id number] Catheterization Order Number: [id number] [facility] FinalReport [place], [place] Patient Name: Edwige Davis ID#:[id number] :1950 Procedure Date: October 01, 2014 Case #: [id number] Room: 1 Case Physician: Neil Weaver M.D. Start: 15:34 Fellow: Karen Doran M.D. Admission:10/01/2014 Referring Luis Arauz M.D. Physicians: Kamilla Pierre M.D. Procedures: * Coronary Angiography * Left [...] at Catheterization: The patient presented with: non-STEMI. [facility] angina class was III. This patient was [...] * Echocardiogram Transthoracic(Leb) (10/01/2014 2:12 PM EDT) [facility] EF 70 HEART[employer]ak[employer] SYSTEM Anatomical Region Laterality Modality Other 10/01/2014 Narrative 10/01/2014 2:56 PM EDT Procedure: ? Transthoracic Echocardiogram Patient: ? MODESTA Early ? (Age): 1950(63) Med Rec#: ?[id number] ? Sex: ?F ? Site Loc: ?DH ? Ht / Wt: ??160(cm)/85(kg) Pt. Loc: ? Adult Floor ?BSA: ?1.94 Study Date: ?10/01/2014 ? Pt. Type: Inpatient Tape: ? Referring: Triston Tomas ([id number]) Senior Operator: Francois Herrera Diagnosis:CPT Code(s): ??Echo Full (19428), ??Spectral Doppler (05038), Color Doppler (19820), Indication(s): ??CAD, H/O Rhythm: Sinus HR ?BP [...] ? Mid-Inferior ?Normal ? Mid-Inferoseptal ?Normal ? [place]-Septal ? Normal ? [place]-Anterior ? Normal ? [place]-Lateral ?Normal ? [place]-Inferior ? Normal ? [place]-Tip ?Normal ? Chambers ?Value ?Units (Range) ? [...] 10/01/2014 14:55:47 Images reviewed and interpretation verified [facility] Cardiac Ultrasound [facility] Procedure Note Han Andrade MD - 10/01/2014 Procedure: Transthoracic Echocardiogram Patient: MODESTA Early DOB(Age): 1950(63) Med Rec#: [id number] Sex: F Site Loc: [facility] Ht / Wt: 160(cm)/85(kg) Pt. Loc: Adult Floor BSA: 1.94 Study Date: 10/01/2014 Pt. Type: Inpatient Tape: Referring: Triston Tomas ([id number]) Senior Operator: Francois Herrera Diagnosis:CPT Code(s): Echo Full (41282), Spectral Doppler (20069), Color Doppler (02432), Indication(s): CAD, H/O Rhythm: Sinus HR BP [...] in the inferior vena cava dimension. Misc Two-dimensional echo, spectral Doppler and color Doppler performed. Wall Motion: Segment Name Rest Base-Anteroseptal Normal Base-Anterior Normal Base-Anterolateral Normal Base-Posterolateral Normal Base-Inferior Normal Base-Inferoseptal Normal Mid-Anteroseptal Normal Mid-Anterior Normal Mid-Anterolateral Normal Mid-Posterolateral Normal Mid-Inferior Normal Mid-Inferoseptal Normal [place]-Septal Normal [place]-Anterior Normal [place]-Lateral Normal [place]-Inferior Normal [place]-Tip Normal Chambers Value Units (Range) IVSd 2D [...] 10/01/2014 14:55:47 Images reviewed and interpretation verified [facility]iac [facility] Triston Tomas MD ECHO ORDERABLES * Cardiac Enzymes (10/01/2014 1:46 PM EDT) Troponin-T <0.03 <=0.03 ng/mL MARCIA [employer] Comment: 0.03 ng/mL: Represents the 99th percentile upper reference limit for normals. >0.03 ng/mL: Elevated cardiac troponin T level indicative of myocardial damage. Diagnosis of acute, evolving or recent [place] requires a typical rise and gradual fall [...] consensus document of the Joint Society of Cardiology/[place] College of Cardiology Committee for the redefinition of myocardial infarction. ??Journal of the [place] College [employer]iology 2000; 36: 959-969] CK, Total 96 0 - 160 unit/L MARCIA CABRERA Blood specimen (specimen) 10/01/2014 1:46 PM EDT 10/01/2014 1:58 PM EDT Narrative Resulting Agency Comment Spec In Lab Triston Tomas MD CHEMISTRY ORDERABLES Performing Organization Address [facility] Co de Phone Number MARCIA CABRERA * EKG 12 Lead (10/01/2014 11:39 AM EDT) Ventricular rate 64 BPM MUSE SYSTEM Atrial Rate 64 BPM MUSE SYSTEM P-R Interval 168 ms MUSE SYSTEM QRS Duration 82 ms MUSE SYSTEM Q-T Interval 452 ms MUSE SYSTEM QTC Calculated (Bezet) 466 ms MUSE SYSTEM Calculated P [place] 48 degrees MUSE SYSTEM Calculated R [place] 37 degrees MUSE SYSTEM Calculated T [place] 139 degrees MUSE SYSTEM INTERPRETATION Normal sinus [...] PM EDT Triston Tomas MD ECG ORDERABLES Performing Organization Address [facility] Co de Phone Number MUSE SYSTEM documented in this encounter Visit Diagnoses Diagnosis Chest tightness or pressure Other chest pain ACS (acute coronary syndrome) Intermediate coronary syndrome CAD (coronary artery disease) Coronary atherosclerosis of unspecified type of vessel, enterprise or graft CAD (coronary artery disease) Coronary atherosclerosis of unspecified type of vessel, enterprise or graft Depression Depressive disorder, not elsewhere classified Dyslipidemia Other and unspecified hyperlipidemia HTN (hypertension) Unspecified essential hypertension Hx [place] Old myocardial infarction Former smoker Personal history of tobacco use, presenting hazards to health PAF (paroxysmal atrial fibrillation) Atrial fibrillation CKD (chronic kidney disease) Chronic kidney disease, unspecified Impaired fasting glucose Metabolic syndrome Dysmetabolic Syndrome X documented in this encounter Administered Medications Inactive Administered Medications - up to 3 most recent administrations Medication Order MAR Action Action Date Dose Rate Site acetaminophen (TYLENOL) tablet 650 mg 650 mg, Oral, EVERY 4 HOURS PRN, Starting on Tue10/01/14 at 1453, Until Tue10/02/14 at 0013, Pain, Headaches, Maximum dose of acetaminophen is 4000 mg from all sources in 24 hours., Routine Given 10/01/2014 7:35 PM EDT 650 mg atorvastatin (LIPITOR) tablet 80 mg 80 mg, Oral, EVERY EVENING, First dose on Tue10/01/14 at 1700, Until Discontinued, Routine Given 10/01/2014 8:32 PM EDT 80 mg diaZEPam (VALIUM) tablet 5 mg 5 mg, Oral, ONCE, 1 dose, On Tue10/01/14 at 1530, Cath (Day of Procedure), Routine Given 10/01/2014 3:07 PM EDT 5 mg diphenhydrAMINE (BENADRYL) capsule 25 mg 25 mg, Oral, ONCE, 1 dose, On Tue10/01/14 at 1530, Cath (Day of Procedure), Routine Given 10/01/2014 3:07 PM EDT 25 mg lisinopril (PRINIVIL;ZESTRIL) tablet 20 mg 20 mg, Oral, DAILY, First dose on Tue10/01/14 at 1700, Until Discontinued, Routine Given 10/01/2014 4:54 PM EDT 20 mg metoprolol succinate (TOPROL-XL) XL tablet 100 mg 100 mg, Oral, DAILY, First dose on Tue10/01/14 at 1700, Until Discontinued, Routine Given 10/01/2014 4:54 PM EDT 100 mg sodium chloride 0.9 % flush 5 mL 5 mL, Intravenous, 2 TIMES DAILY, First dose on Tue10/01/14 at 2100, Until Discontinued, Routine Given 10/01/2014 8:33 PM EDT 5 mLs sodium chloride 0.9% infusion 200 mL/hr, Intravenous, CONTINUOUS, Starting on Tue10/01/14 at 1515, Until Tue10/01/14 at 1640 New Bag 10/01/2014 3:15 PM EDT 200 mL/hr 200 mL/hr sodium chloride 0.9% infusion 100 mL/hr, Intravenous, CONTINUOUS, Starting on Tue10/01/14 at 1700, Until Tue10/01/14 at 2059 New Bag 10/01/2014 5:07 PM EDT 100 mL/hr 100 mL/hr documented in this encounter Active and Recently [...] at 1530, Cath (Day of Procedure), Routine 1507 (Given - Provid er: Mabel Scales RN) diphenhydrAMINE (BENADRYL) capsule 25 mg (COMPLETED) 25 mg, Oral, ONCE, 1 dose, On Tue10/01/14 at 1530, Cath (Day of Procedure), Routine 1507 (Given - Provid er: Mabel Scales RN) lisinopril (PRINIVIL;ZESTRIL) tablet 20 mg (CANCELED) 20 mg, Oral, DAILY, First dose on Tue10/01/14 at 1700, Until Discontinued, Routine 165 (Given - Provid er: Ronald Smiley RN) metoprolol succinate (TOPROL-XL) XL tablet 100 mg (CANCELED) 100 mg, Oral, DAILY, First dose on Tue10/01/14 at 1700, Until Discontinued, Routine 165 (Given - Provid er: Ronald Smiley RN) [...] PRN, Starting on Tue10/01/14 at 1453, Until Tue10/02/14 at 0013, Pain, Headaches, Maximum dose of acetaminophen is 4000 mg from all sources in 24 hours., Routine 193 (Given - Provid er: Hallie Clarke RN) heparin (porcine) injection (CANCELED) ONCE PRN, Starting on Tue10/01/14 at 1612, Until Tue10/01/14 at 1745, Cath (Intra-Procedure), Routine 161 (Given - Provid er: Neil Salinas MD) iohexol (OMNIPAQUE) 350 mg/mL solution (CANCELED) ONCE PRN, Starting on Tue10/01/14 at 1626, Until Tue10/01/14 at 1745, Cath (Intra-Procedure), Routine 1626 (Given - Provid er: Neil Salinas MD) nitroGLYcerin (NITROSTAT) SL tablet 0.4 mg 0.4 mg, Sublingual, EVERY 5 MIN PRN, Starting on Tue10/01/14 at 1453, Until 10/02/14 at 0013, Chest pain, May repeat every [...] MD) documented in this encounter Care Teams Manager Wound Relationship Specialty Start Date End Date Kamilla Pierre MD [address] [place] [address] PCP - General 02/13/13 11/24/20 documented as of this encounter
--- OUTSIDE RECORDS SUMMARY | 2024-02-15 14:58 | XMS_ITS | Encounter Summary ---
Author Organization [facility] Address [address] [place] [address] Care Team Providers Care Ob/Gyn Name Role Phone Esther Verma Primary Care Provider [phone] Pj Bourne MD Unavailable [phone] Reason for Visit * (Routine/Next Available) - Order Cancelled Specialty Diagnoses / Procedures Referred By Contdakotah t Referred To Contact Procedures US OUTSIDE IMAGES THYROID Imaging, External Referral ID Status Reason Start Date Expiration Date V isits Requested Visits Authorized [id number] Order Cancelled 05/05/2023 1 1 Encounter Details Date Type Department Care Team (Latest Contact Info) Description 01/17/2023 - 01/17/2023 23:59 EDT Hospital Encounter [facility] Secondary Reads [place] Discharge Disposition: Home or Self Care Social [...] Appointment Medical Center Radiology CT Outpatient - [address] [address] 06/08/2024 14:30 EST Office Visit [facility] Radiation Oncology - [address] [id number] Pj Bourne MD [address] [place] [phone] documented as of this encounter Visit Diagnoses Not on filedocumented in this encounter Care Teams Ob/Gyn Relationship Specialty Start Date End Date Esther Verma FNP [address] [facility] [address] [place] [phone] PCP - General 07/27/22 Pj Bourne MD [address] [place] [phone] Radiation Oncology 10/21/22 documented as of this encounter
--- OUTSIDE RECORDS SUMMARY | 2024-02-15 14:58 | XMS_ITS | Encounter Summary ---
Author Organization [facility] Address [address] [place] [address] Care Team Providers Care Die Press Operator Name Role Phone Esther Verma Primary Care Provider [phone] Pj Bourne MD Unavailable [phone] Reason for Referral * Radiology Services (Routine/Next Available) - Authorization Not Required Specialty Diagnoses / Procedures Referred By Chau car Referred To Contact Diagnoses Nontoxic multinodular goiter Procedures US GUIDED NECK FNA Stephania Munoz DO [address] [place] [address] [facility] Referral ID Status Reason Start Date Expiration Date Visits Requested Visits Authorized [id number] Authorization Not Required 3 1 1 Reason for Visit * Reason Comments Thyroid Problem * Referral (Routine) - Receiving Office to Obtain Authorization Specialty Diagnoses / Procedures Referred By Chau car Referred To Contact Endocrinology Diagnoses Nontoxic single thyroid nodule Esther Verma FNP [address] [place] [phone] [facility] Endocrinology [address] [place] [address] Referral ID Status Reason Start Date Expiration Date Visits Requested Visits Authorized [id number] Receiving Office to Obtain Authorization 1 1 Encounter Details Date Type Department Care Team (Late st Contact Info) Description 05/02/2023 13:40 EDT Office Visit [facility] Endocrinology - [facility] [address] [place], [place] [id number] Stephania Munoz, [address] [place] [phone] Nontoxic multinodular goiter (Primary Dx) Social History [...] Sign Reading Time Taken Comments Blood Pressure 136/62 05/02/2023 1330 EDT Pulse 95 05/02/2023 1330 EDT Temperature - - Respiratory Rate - - Oxygen Saturation - - Inhaled Oxygen Concentration - - Weight 87.6 kg (193 lb 3.2 oz) 05/02/2023 1330 E DT Height 160 cm (5' 2.99) 05/02/2023 1330 EDT Body Mass Index 34.23 05/02/2023 1330 EDT documented in this encounter Functional Status [...] No 03/28/2020 documented as of this encounter Patient Instructions * Patient Instructions* Stephania Munoz, - 05/02/2023 13:40 EDT Things to do after your visit today: Medications: No medication changes made today. Continue medications at current doses. If you are taking the supplement Biotin, please stop this AT LEAST 2 WEEKS before your thyroid testblood draw. You may resume it after your blood draw. 2. Laboratory: Please have your labs drawn 1 week prior to your next 2 MONTH visit. You DO need to fast for your lab draw. 3. Please schedule a thyroid ultrasound-guided fine needle aspiration biopsy of your thyroid nodules as soon as able. Follow-up: Please schedule a follow-up visit with our clinic in 2 MONTHS. documented in this encounter Progress Notes * Stephania Munoz DO - 05/02/2023 1340 EDT Esther Verma 04/20/2023 Edwige Davis 1950 Subjective: Edwige Davis is a 72 year-old female who is referred to me in consultation by EDWARD Rutledge for a chief complaint of Nontoxic Single Thyroid Nodule. She presents in accompaniment of her daughter, Anabell. Edwige tells me that was told of her thyroid nodule ~2-3 months ago. She denies a history of thyroid disease, including overt diagnoses of hyper- or hypothyroidism, thyroid cancer, REYNOSO gland ablation, Biotin, thioamide, nor THR use. She recently ended [facility], and she tells me that she is unsure of the type of lung cancer she has, after presenting with chronic Afib, and tells me that it was discovered on xray. She has a history of tobacco abuse, but quit a long time ago. 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 She wonders if that's the cause of her lung cancer. She offers no new nor additional complaints. Current dose THR: None Past Medical History: Diagnosis Date ??? Arrhythmia A-Fib ??? CAD (coronary artery disease) ??? CHF (congestive heart failure) (HCC-CMS) ??? Chronic kidney disease ??? COPD (chronic obstructive pulmonary disease) (HCC-CMS) ??? Diabetes mellitus (HCC-CMS) Type 2 ??? Hypertension ??? JESICA (obstructive sleep apnea) No family history on file. Social History Socioeconomic History ??? Marital status: Single Spouse name: Not on file ??? Number of children: Not on file ??? Years of education: Not on file ??? Highest education level: Not on file Occupational History ??? Not on file Tobacco Use ??? Smoking status: Former Current packs/day: 0.00 Types: Cigarettes Quit date: 07/28/2009 Years since quittin.7 ??? Smokeless tobacco: Never Vaping Use ??? Vaping Use: Never used Substance and Sexual Activity ??? Alcohol use: Not Currently ??? Drug use: Never ??? Sexual activity: Not on file Other Topics Concern ??? Not on file Social History Narrative ??? Not on file Social Determinants of Health Financial Resource Strain: Not on file Food Insecurity: Not on file Transportation Needs: Not on file Physical Activity: Not on file Stress: Not on file Social Connections: Not on file Housing Stability: Not on file Current Outpatient Medications Medication ??? aspirin chewable 81 mg tablet ??? BD ULTRA-FINE SHORT PEN NEEDLE ??? betamethasone valerate (VALISONE) 0.1 % ointment ??? calcium carbonate (TUMS) 200 mg calcium (500 mg) tablet,chewable ??? dilTIAZem (TIAZAC) 120 mg SR capsule ??? ELIQUIS 5 mg tablet ??? ergocalciferol, vitamin D2, (VITAMIN D ORAL) ??? furosemide (LASIX) 20 mg tablet ??? HUMULIN N NPH INSULIN KWIKPEN 100 unit/mL (3 mL) injectable pen ??? insulin aspart (NOVOLOG FLEXPEN U-100 INSULIN SUBQ) ??? liraglutide (VICTOZA) 0.6 mg/0.1 mL (18 mg/3 mL) injectable pen ??? lisinopriL (PRINIVIL) 5 mg tablet ??? metoprolol XL (TOPROL-XL) 100 mg tablet ??? montelukast (SINGULAIR) 10 mg tablet ??? nitroGLYCERIN (NITROSTAT) 0.4 mg SL tablet ??? tiotropium bromide (SPIRIVA RESPIMAT INHALATION) ??? VITAMIN B COMPLEX ORAL No current facility-administered medications for this visit. Review of Systems: A 10 point review of systems was obtained, pertinent positives and negatives as listed above, all others negative. Vital Signs: Patient Vitals for the past 24 hrs: BP Pulse Height Weight 05/02/23 1330 136/62 95 160 cm (62.99) 87.6 kg (193 lb 3.2 oz) Physical Examination: GEN: Alert, cooperative, NAD. Appears stated age. Glasses. HEENT: NC/AT, EOMI; PERRLA. No carotid bruit(s). Supple; No JVD. No thyromegaly. Thyroid appreciated midline. No goiter, nor palpable thyroid nodules. Absent lid-lag, exophthalmos, and proptosis, OU. CARDIAC: S1, S2, RRR. No G/R/M. PULM: CTABL ABD: Soft, NT/ND. No TTP. No G/R/RT. +BS x 4 quadrants. Obese. EXT: No C/C/E. SKIN: Warm, and dry. Skin color, texture, turgor normal. No rashes, or lesions. LYMPH: Cervical, supraclavicular, and axillary nodes normal. NEURO: A+O x3; CN II-XII grossly intact, B/L. No FND. Absent UE, and LE tremor, B/L. PSYCH: Mood, and affect appropriate. Thought, insight, and judgement intact. Laboratory: Thyroid: None Imagin01/17/23 US Thyroid: [facility]: IMPRESSION: Nodule at the lower pole of the left lobe of the thyroid without suspicious appearance, TR 5. FNA recommended. TR4 nodule right lobe, follow-up recommended. 05/13/22 CT Chest wo Contrast: Right Upper Lobe Opacity: FINDINGS: Thyroid Gland: There is a 1 cm hypodense nodule in the right lobe of the thyroid gland. Nonemergent thyroid ultrasound is recommended. Assessment/Plan: Nontoxic Multinodular Goiter Since 2021, Nontoxic Multinodular Goiter, noted as incidental finding on CT Scan for Right Upper Lobe Opacity, suspicious for bronchogenic carcinoma. 01/16/23 US Thyroid reveals nodule at the lower pole of the left lobe of the thyroid without suspicious appearance, TR 5. FNA recommended. TR4 nodule right lobe, follow-up recommended. Unfortunately, I have no thyroid function tests from referring facility for review, and interpretation. I discussed with patient the prevalence of thyroid nodules: Approximately 5% of individuals have palpable thyroid nodules and 30% or more of adults have nonpalpable nodules. The prevalence of nodulesincreases with age, so that perhaps 50% of individuals older than 60 years of age have nodules. Many of these nodules will be well under 1 cm in size. The incidence of thyroid cancer is low, but rising. There have been a number of studies that have estimated risk of malignancy and thyroid nodule. The estimated risk varies with size and other characteristics of nodules selected for biopsy, the technique used for the biopsy, the institution and its referral patterns, and characteristics of the localpopulation. Most studies have estimated malignancy risk and nodules that are palpable or >1 cm on ultrasound to be in the range of 3-15%. In general, options for further evaluation include: 1. Follow with serial ultrasound, 2. Fine-needle aspiration biopsy, and 3. Thyroidectomy. Criteria for FNA biopsy include: 1. All palpable nodules, 2. All nodules >1 cm in two or more dimensions, 3. Nodules >8-9 mm in two or more dimensions with high risk sonographic features, or occurring in patients with high risk historical features, 4. Nodules that have been previously biopsied and found to have benign cytology which have subsequently a large store changed significantly, and5. Simple cysts do not require FNA biopsy. Nodules not meeting the above criteria can generally be followed with ultrasound. It is reasonable to obtain biochemical thyroid function testing, as well as US- Guided FNA of TR 5, and TR 4 nodules. Will monitor this problem. Patient amenable to plan of care. All questions answered to patient's satisfaction. Recommend: -Obtain TSH, FT4, Tg, Tg Ab, US-Guided FNA Follow-up: 2 MONTHS * Melissa Cope MA - 05/02/2023 1340 EDT Patient sees PCP for diabetes documented in this encounter Plan of Treatment Upcoming Encounters Date Type Department Care Team (Late st Contact Info) Description 06/08/2024 13:30 EST Appointment [facility] Radiology CT Outpatient - [address] [phone] 06/08/2024 14:30 EST Office Visit [facility] Cancer Center Radiation Oncology - [address] [address] Pj Bourne MD [address] [place] [address], [facility], [address] [place] [address] Scheduled Orders Name Type Priority Associated Diagnoses Orde r Schedule US GUIDED NECK FNA Imaging Routine Nontoxic multinodular goiter Expected: 05/21/2023 (Approximate), Expires: 04/20/2024 documented as of this encounter Results * (ABNORMAL) THYROGLOBULIN, TUMOR MARKER, S (08/29/2023 12:10 EST) Thyroglobulin Antibody, S <1.8 <1.8 IU/mL 08/30/2023 16:29 EST [facility] Thyroglobulin, Tumor Marker 25(H) ng/mL 08/30/2023 16:29 EST [facility] Comment: REFERENCE VALUE Athyrotic <0.1 Intact Thyroid <=33 Thyroglobulin Interpretation SEE NOTE 08/30/2023 16:29 EST [facility] Comment: Thyroglobulin (Tg) levels must be interpreted in the context of TSH levels, serial Tg measurements and radioiodine ablation status. ??Tg levels of > or = 10 ng/mL in athyrotic individuals on suppressive therapy indicate a significant (>25%) risk of clinically detectable recurrent papillary/follicular thyroid cancer. ADDITIONAL INFORMATION PLEASE NOTE: The given cutoff of <1.8 IU/mL is for the detection of potential thyroglobulin antibody (TgAb) interference in thyroglobulin immunoassays. Thyroglobulin flagging is based on athyrotic reference values. A thyroglobulin antibody (TgAb) reference cutoff of <4.0 IU/mL may be more suitable for the evaluation of autoimmune thyroiditis. The thyroglobulin and thyroglobulin antibody testing methods are immunoenzymatic assays manufactured by [employer] and performed on the [employer] DXI 800. Values obtained from different assay methods or kits may be different and cannot be used interchangeably. The results cannot be interpreted as absolute evidence for the presence or absence of malignant disease. Test Performed by: [facility] [address] [place] [address] Diet Kitchen Cook: Abel Cloud M.D. Ph.D.; CLIA# [id number] Blood VENOUS BLOOD / Unknown Venipuncture / Unknown 08/29/2023 12:10 EST 08/29/2023 12:27 EST Stephania Munoz DO CHEMISTRY & BLOOD GAS ORDERABLES Performing Organization Address City/[facility] [address]/ZIP Co de Phone Number [facility] [address] [place] [address] * T4 FREE (08/29/2023 12:10 EST) T4, Free 1.4 0.8 - 2.2 ng/dL 08/29/2023 13:16 EST [facility] Blood VENOUS BLOOD / Unknown Venipuncture / Unknown 08/29/2023 12:10 EST 08/29/2023 12:26 EST Stephania Munoz DO CHEMISTRY & BLOOD GAS ORDERABLES Performing Organization Address City/[facility] [address]/ZIP Co de Phone Number [facility] [address] [place] [address] * TSH (08/29/2023 12:10 EST) TSH 1.59 0.47 - 4.68 mIU/L 08/29/2023 13:30 EST [facility] Blood VENOUS BLOOD / Unknown Venipuncture / Unknown 08/29/2023 12:10 EST 08/29/2023 12:26 EST Narrative [facility] - 08/29/2023 13:30 EST The results of this assay can be falsely lowered due to the consumption of Biotin. Stephania Munoz DO CHEMISTRY & BLOOD GAS ORDERABLES [facility] [address] [place] [address] documented in this encounter Visit Diagnoses Diagnosis Nontoxic multinodular goiter- Primary documented in this encounter Orders Lab Orders Without Results Count Last Ordered D ate First Ordered Date ANTI THYROGLOBULIN 1 05/02/2023 documented in this encounter Care Teams Die Press Operator Relationship Specialty Start Date End Date Esther Verma FNP [address] [facility] [address] [place] [phone] PCP - General 07/27/22 Pj Bourne MD [address] [facility], [address] [place] [phone] Radiation Oncology 10/21/22 documented as of this encounter
--- OUTSIDE RECORDS SUMMARY | 2024-02-15 14:58 | XMS_ITS | Encounter Summary ---
Author Organization [facility] Address [address] [place] [address] Care Team Providers Care Home Health Clinical Liaison Name Role Phone Esther Verma Primary Care Provider [phone] Pj Bourne MD Unavailable [phone] Encounter Details Date Type Department Care Team (Late st Contact Info) Description 08/29/2023 11:55 EST Phlebotomy Only [facility] - Outpatient Phlebotomy Drawing [address] [place] [address] Lab, [facility] Phlebotomy Nontoxic multinodular goiter Social History Tobacco Use Types Packs/Day Years [...] st Contact Info) Description 06/08/2024 13:30 EST [facility] Radiology CT Outpatient - Main [place] [address] [place] [address] 06/08/2024 14:30 EST Office Visit [facility] Cancer Center Radiation Oncology - [address] [phone] Pj Bourne MD [address] [facility] [place], [address] [place] [address] documented as of this encounter Procedures Procedure Name Priority Date/Time Associated Diagnosis Comments THYROTROPIN RECEPTOR ANTIBODY Routine 08/29/2023 12:10 EST Nontoxic multinodular goiter THYROID-STIMULATING IMMUNOGLOBULIN (TSI), SERUM Routine 08/29/2023 12:10 EST Nontoxic multinodular goiter THYROGLOBULIN, TUMOR MARKER, S Routine 08/29/2023 12:10 EST Nontoxic multinodular goiter T3 FREE Routine 08/29/2023 12:10 EST Nontoxic multinodular goiter TSH Routine 08/29/2023 12:10 EST Nontoxic multinodular goiter T4 FREE Routine 08/29/2023 12:10 EST Nontoxic multinodular goiter documented in this encounter Results * T3 FREE (08/29/2023 12:10 EST) T3, Free 4.5 2.8 - 5.3 pg/mL 08/29/2023 21:[address] [facility] Blood VENOUS BLOOD / Unknown Venipuncture / Unknown 08/29/2023 12:10 EST 08/29/2023 12:27 EST Ragini Pérez DO CHEMISTRY & BLOOD GA S ORDERABLES [facility] [address] [place] [address] * THYROTROPIN RECEPTOR ANTIBODY (08/29/2023 12:10 EST) Pathologist [facility] Thyrotropin Receptor Ab, S <1.10 0.00 - 1.75 IU/L 08/30/2023 16:43 EST [facility] [employer] Comment: ADDITIONAL INFORMATION At a decision limit of 1.75 IU/L, this assay has 97% sensitivity and 99% specificity for detection of Graves' disease. In healthy individuals and in patients with thyroid disease without diagnosis of Graves' disease, the upper limit of anti-TSHR values are 1.22 IU/L and 1.58 IU/L, respectively (97.5th percentiles). Test Performed by: [facility] [place] [address] Solution Analyst: Abel Cloud M.D. Ph.D.; CLIA# [id number] Blood VENOUS BLOOD / Unknown Venipuncture / Unknown 08/29/2023 12:10 EST 08/29/2023 12:27 EST [facility] & BLOOD Swyzzle S ORDERABLES Performing Organization Address [facility] Co de Phone Number [facility] [address] [place] [address] * THYROID-STIMULATING IMMUNOGLOBULIN (TSI), SERUM (08/29/2023 12:10 EST) Pathologist [facility] Thyroid-Stimulati ng Immunoglobin, S <1.0 <=1.3 TSI index 08/31/2023 17:15 EST [facility] [employer] Comment: Test Performed by: [facility] [place] [address] Solution Analyst: Abel Cloud M.D. Ph.D.; CLIA# [id number] Blood VENOUS BLOOD / Unknown Venipuncture / Unknown 08/29/2023 12:10 EST 08/29/2023 12:27 EST [facility] & BLOOD Swyzzle S ORDERABLES [facility] [address] [place] [address] * (ABNORMAL) THYROGLOBULIN, TUMOR MARKER, S (08/29/2023 12:10 EST) Thyroglobulin Antibody, S <1.8 <1.8 IU/mL 08/30/2023 16:29 [facility] Thyroglobulin, Tumor Marker 25(H) ng/mL 08/30/2023 16:29 [facility] Comment: REFERENCE VALUE Athyrotic <0.1 Intact Thyroid <=33 Thyroglobulin Interpretation SEE NOTE 08/30/2023 16:29 [facility] Comment: Thyroglobulin (Tg) levels must be interpreted [...] testing methods are immunoenzymatic assays manufactured by [employer] and performed on the [employer] DXI 800. Values obtained from different assay methods or kits may be different and cannot be used interchangeably. The results cannot be interpreted as absolute evidence for the presence or absence of malignant disease. Test Performed by: [facility] [address] [place] [address] Solution Analyst: Abel Cloud M.D. Ph.D.; CLIA# [id number] Blood VENOUS BLOOD / Unknown Venipuncture / Unknown 08/29/2023 12:10 EST 08/29/2023 12:27 EST Stephania M Tammy CHEMISTRY & BLOOD GAS ORDERABLES [facility] [address] [place] [address] * T4 FREE (08/29/2023 12:10 EST) T4, Free 1.4 0.8 - 2.2 ng/dL 08/29/2023 13:16 EST [facility] Blood VENOUS BLOOD / Unknown Venipuncture / Unknown 08/29/2023 12:10 EST 08/29/2023 12:26 EST [facility]ia [facility] CHEMISTRY & BLOOD GAS ORDERABLES Performing Organization Address City/[facility] Co de Phone Number [facility] [address] [place] [address] * TSH (08/29/2023 12:10 EST) TSH 1.59 0.47 - 4.68 mIU/L 08/29/2023 13:30 EST [facility] Blood VENOUS BLOOD / Unknown Venipuncture / Unknown 08/29/2023 12:10 EST 08/29/2023 12:26 EST Narrative [facility] - 08/29/2023 13:30 EST The results of this assay can be falsely lowered due to the consumption of Biotin. Stephania Munoz DO CHEMISTRY & BLOOD GAS ORDERABLES Performing Organization Address City/[facility]/ZIP Co de Phone Number [facility] [address] [place] [address] documented in this encounter Visit Diagnoses Diagnosis Nontoxic multinodular goiter documented in this encounter Care Teams Home Health Clinical Liaison Relationship Specialty Start Date End Date Esther Verma FNP [address] [place] [phone] PCP - General 07/27/22 Pj Bourne MD 111 [facility], [facility] [address] [place] [phone] Radiation Oncology 10/21/22 documented as of this encounter
--- OUTSIDE RECORDS SUMMARY | 2024-02-15 14:58 | XMS_ITS | Encounter Summary ---
Author Organization [facility] Address [facility] [place] [address] Care Team Providers Care Wildlife Refuge Manager Name Role Phone Esther Verma APRN Primary Care Provider [phone] Encounter Details Date Type Department Care Team (Late st Contact Info) Description 06/16/2009 Orders Only [place] [address] Han Kim MD [facility] [place]AC[place] [address] Social History Tobacco Use Types Packs/Day Years [...] Associated Diagnosis Comments SURGICAL PATHOLOGY REPORT Routine 06/16/2009 9:11 AM EST documented in this encounter Results * Surgical Pathology Report (06/16/2009 9:11 AM EST) Surgical Pathology Report [id number] ? Location: [facility]; [facility]; A The signing pathologist has (i) examined the relevant preparation(s) for the specimen(s) and (ii) rendered or confirmed the diagnosis(es). . ?Pathology Surgical Pathology Final Report Clinical Information Specimen Submitted: A - Parathyroid adenoma, anterior mediastinum for frozen section Clinical History: Parathyroid adenoma Clinical Diagnosis: Parathyroid adenoma Frozen Section Diagnosis Frozen section(s) performed. ??Please refer to separate electronic frozen section report(s). Gross Description Labeled/Fixative: ? Parathyroid adenoma, anterior mediastinum; fresh. Qty/Size/Weight: ?One, 4.0 x 4.0 x 1.0 cm. Tissue Description: ?? The specimen consists largely of yellow, lobulated ?adipose tissue. ??Within the adipose tissue there is a 1.0 x 0.8 x 0.4-cm, well-circumscribe d, red-brown nodule. ??Cut surface reveals a homogeneous, red-brown surface. Sections/Processi ng: ??Half of the nodule is submitted for frozen section. ?Frozen section residue is in (A1). ??(A2) unfrozen ?half of nodule. ??(R2) ??aje/CJL Microscopic Description Slides reviewed, microscopic description not recorded. Diagnosis A - Anterior mediastinum parathyroid ?Intrathymic parathyroid adenoma CR-0 06/17/09 VAM 06/17/09 Verified by: ? Miguel Merida MD ?Pathologist ?(Electronic Signature) The attending pathologist whose signature appears on this report has reviewed all diagnostic slides and has edited the gross and/or microscopic portion of the report in rendering the final pathologic diagnosis. Comment Intraoperative PTH levels are reviewed in the eCIS. ? Pathology Frozen Section Report Frozen Section Report A - Parathyroid adenoma, anterior mediastinum for frozen section . Frozen Section Report ?Enlarged parathyroid 06/17/09 ??Verified by: ??Fuad ALY, Miguel Marr, Pathologist The attending pathologist whose electronic signature appears on this report has reviewed all diagnostic slides in rendering the frozen section diagnosis. This intraoperative consultation should be interpreted as a preliminary diagnosis pending review of the entire specimen and special studies, if any. MARCIA IRBYREPLACED BY [facility] 06/16/2009 9:11 AM EST Han Kim MD PATHOLOGY/CYTOLOGY ORDERABLES [facility] documented in this encounter Visit Diagnoses Not on filedocumented in this encounter Care Teams Wildlife Refuge Manager Relationship Specialty Start Date End Date Esther Verma APRN [address] [place] [address] PCP - General Family Medicine 11/25/20 documented as of this encounter
--- OUTSIDE RECORDS SUMMARY | 2024-02-15 14:58 | XMS_ITS | Referral Summary ---
Author Organization [facility] Address [address] [place] [address] Care Team Providers Care Technical Support Specialist Name Role Phone Bayron Esther EDWARD Primary Care Provider [phone] Pj Bourne MD Unavailable [phone] Encounters Date Type Department Care Team Description 02/14/2024 13:45 EDT Office Visit [facility] [address], [place] [address] Taj Lei MD Permanent atrial fibrillation (HCC-CMS) (Primary Dx); Current use of snf anticoagulation; ACC/AHA stage C heart failure with preserved ejection fraction (HCC-CMS); Diabetes mellitus type 2, insulin dependent (HCC-CMS); Essential hypertension 01/25/2024 Lab Requisition [facility] Pathology & Laboratory Medicine - [address] [address] Outr Resulting Lab, Provider 12/17/2023 Telephone [facility] Endocrinology - [address] [address] Ragini Pérez DO 12/02/2023 10:30 EDT Office Visit [facility] Radiation Oncology - [address] [id number] Pj Bourne MD Thyroid nodule (Primary Dx); History of lung cancer 12/02/2023 8:17 EDT - 12/02/2023 23:59 EDT Hospital Encounter [facility] Radiology CT - [address] [phone] 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-CMS) Discharge Disposition: Home or Self Care from Last 3 Months Allergies Active Allergy Reactions Criticality Noted Date [...] Diagnosed Date Nontoxic multinodular goiter 08/04/2023 Diabetes ([facility]) 05/16/2023 Primary cancer of right upper lobe of lung ([facility]) 07/26/2022 Cancer Staging:Clinical:Stage IA2(cT1b, cN0, cM0) - Signed by Pj Bourne MD on 09/13/2022 Overview: Added automatically from request for surgery [id number] Resolved Problems Problem Noted Date Diagnosed Date Resolved Date Malignant neoplasm of upper lobe, right bronchus or lung ([facility]) 10/18/2022 11/11/2022 Social History Tobacco Use Types Packs/Day Years [...] Body Mass Index 32.45 02/14/2024 1331 EDT Functional Status Functional Status Response Date of [...] concentrating, remembering, or making decisions? No 03/28/2020 Plan of Treatment Upcoming Encounters Date Type Department Care Team (Late st Contact Info) Description 06/08/2024 13:30 EST Appointment [facility] Radiology CT Outpatient - [address] [id number] 06/08/2024 14:30 EST Office Visit [facility] Radiation Oncology - [address] [phone] Pj Bourne MD [address] [place] [address], [address] [place] [address] Procedures Procedure Name Priority Date/Time Associated Diagnosis [...] EDT) 02/14/2024 14:1 6 EDT Scan 2 Wheel Truer PROCEDURE/MINOR [place] GICAL ORDERABLES * EKG 12-LEAD (02/14/2024 13:44 EDT) 02/14/2024 13:4 4 EDT Narrative [facility] - 02/14/2024 13:50 EDT ? CVC ? Test Date: ?2024-02-14 Pat Name: ? EDWIGE BYERS ? Department: ? Room: ? Gender: ? Female ? Bottle Cleaner: ?? sal : ?1950 ? Requested By: DO VANG Order Number: [id number] ? Adan ALY: ?? TAJ LEI MD ? Measurements Intervals ?[place] ? Rate: ? 75 ? P: ?0 IA: ? 0 ?QRS: ?73 QRSD: ? 84 [...] Name: EDWIGE BYERS Department: Room: Gender: Female Bottle Cleaner: sal : 1950 Requested By: DO VANG Order Number: [id number] Reading MD: TAJ LEI MD Measurements Intervals [place] Rate: 75 P: 0 IA: 0 QRS: 73 QRSD: 84 T: 182 QT: 410 QTc: 457 Interpretive Statements Atrial fibrillation Nonspecific ST and T wave abnormality No previous ECG available for comparison I reviewed the tracing and have either agreed or edited the findings inthis report. Electronically Signed On 02-14-2024 13:50:03 EDT by TAJ ZAMBRANO. Taj Lei MD CARDIAC ECG ORDERABL ES [facility] * (ABNORMAL) PTH INTACT (01/25/2024 10:30 EDT) Intact PTH 104(H) 19 - 88 pg/mL 01/26/2024 8:32 EDT [facility] Blood VENOUS BLOOD / Unknown 01/25/2024 10:30 EDT 01/25/2024 21:59 EDT Provider Outr Resulting Lab CHEMISTRY & BLOOD GAS ORDERABLES [facility] [address] [place] [address] * CT CHEST WO CONTRAST (12/02/2023 8:35 EDT) Anatomical Region Laterality Modality Chest Computed Tomogra phy 12/02/2023 9:21 EDT Impressions 12/02/2023 9:21 EDT 1. ??Expected post radiation changes in the right upper lobe. 2. ??Multiple stable groundglass lesions within both lungs, continued long-term CT surveillance is needed. 3. ??Additional chronic findings above. [id number] Narrative 12/02/2023 9:[address] CHEST WO [...] the left T4 vertebra. Resulting Agency Comment [id number] Procedure Note Soy Goodman MD - 12/02/2023 [...] is needed. 3. Additional chronic findings above. [id number] Pj Bourne MD IMG CT ORDERABLES from Last 3 Months Care Teams Technical Support Specialist Relationship Specialty Start Date End Date Esther Verma FNP [address] [place] [phone] PCP - General 07/27/22 Pj Bourne MD [address] [place] [address] [address] [place] [address] Radiation Oncology 10/21/22
--- OUTSIDE RECORDS SUMMARY | 2024-02-15 14:58 | XMS_ITS | Encounter Summary ---
Author Organization [facility] Address [address] [place] [address] Care Team Providers Care Boxer Operator Name Role Phone Erinn Vermay EDWARD Primary Care Provider [phone] Pj Bourne MD Unavailable [phone] Reason for Referral * Radiology Services (Routine/Next Available) - Authorization Not Required Specialty Diagnoses / Procedures Referred By Chau car Referred To Contact Diagnoses 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-CMS) Procedures CT CHEST WO CONTRAST Pj Bourne MD [address] [place] [phone] [facility] Referral ID Status Reason Start Date Expiration Date Visits Requested Visits Authorized [id number] Authorization Not Required 11/11/2022 1 1 Reason for Visit * Radiology Services (Routine/Next Available) - Authorization Not Required Specialty Diagnoses / Procedures Referred By Chau car Referred To Contact Diagnoses 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-CMS) Procedures CT CHEST WO CONTRAST Pj Bourne MD [address] [place] [phone] [facility] Referral ID Status Reason Start Date Expiration Date Visits Requested Visits Authorized [id number] Authorization Not Required 11/11/2022 1 1 Encounter Details Date Type Department Care Team (Latest Contact Info) Description 05/16/2023 13:00 EDT - 05/16/2023 23:59 EDT Hospital Encounter [facility] Radiology CT - Main [place] [address] [place] [address] 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-CMS) Discharge Disposition: Home or Self Care Social [...] Contact Info) Description 06/08/2024 13:30 EST Appointment [facility] Radiology CT Outpatient - [address] [id number] 06/08/2024 14:30 EST Office Visit [facility] Radiation Oncology - [address] [phone] Pj Bourne MD [address] [place] [address] [address] [place] [address] documented as of this encounter Procedures Procedure Name Priority Date/Time Associated Diagnosis Comments CT CHEST WO CONTRAST Routine 05/16/2023 13:52 EDT 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-CMS) documented in this encounter Results * CT CHEST WO CONTRAST (05/16/2023 13:52 EDT) Anatomical Region Laterality Modality Chest Computed Tomogra phy 05/16/2023 14:3 3 EDT Impressions 05/16/2023 14:33 EDT Decrease in size of treated right upper [...] left lobe of thyroid with calcifications, unchanged. [id number] Narrative 05/16/2023 14:[address] CHEST WO CONTRAST ??05/16/2023 1:00 PM Clinical History/Comments: Pt with h/o right lung nsclc, tx with sABR November 2022, ? tumor response, and new or progressive disase.; Staging, lung cancer, non-small cell; Pt with h/o right lung nsclc, tx with sABR November 2022, ? tumor response, and new or progressive disase.;C34.11: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-CMS) Technique: CT scan of the chest was performed without contrast material. Thin section reconstructions were performed. This CT used either dose modulation and/or iterative reconstruction techniques to lower radiation dose. Comparison: Outside chest CT 05/13/2022. Findings: Lower neck: There is slight enlargement of the left lobe of thyroid containing multiple calcifications, findings unchanged from comparison studies of May 13, 2022. Mediastinum and carmen (non-vascular): No enlarged mediastinal or hilar lymph nodes. ??The esophagus appears normal. There are some surgical clips in the left upper paravertebral region at the T3 and T4 levels likely reflecting history of prior resection in this region. Cardiovascular: There is severe coronary arterial atherosclerotic calcification and severe calcification of the thoracic aorta and moderate arch vessel atherosclerotic calcification noted. The left atrium is enlarged. Lungs and airways: The exam shows significant decrease in size of the nodule seen in the right lung apex posteriorly on the prior examination, now seen to measure approximately 10 mm average diameter with some surrounding groundglass and reticulation that likely reflects changes associated with stereotactic radiation. There is some linear scarring and atelectasis within the inferior lingula. There is mild airways thickening. There is moderate centrilobular emphysema most severe within the right upper lobe of lung. There are multiple groundglass attenuation lesions within the right upper lobe of lung the largest measuring approximately 12 mm greatest axial diameter in the upper lobe inferiorly just above the minor fissure has not changed significantly from April 2022. There is a poorly defined 7 mm diameter groundglass attenuation lesion within the left lower lobe of lung posteriorly (series 202 image 324), stable. There is a calcified granuloma in the posterior basal segment of the left lower lobe. Pleura: There is a very small right pleural effusion dependently likely related to the radiation treatment.. Upper abdomen (limited to upper abdomen, not optimized for abdominal imaging): Normal. Chest wall soft tissues: No abnormalities in the chest wall soft tissues. Bones: There are is evidence of prior midline sternotomy. There are postsurgical changes with partial resection of the left fourth rib presumably associated with the resection in the left upper thoracic paravertebral region. Procedure Note Nigel Lehman MD - 05/16/2023 CT CHEST WO CONTRAST 05/16/2023 1:00 PM Clinical History/Comments: Pt with h/o right lung nsclc, tx with sABR November 2022, ? tumorresponse, and new or progressive disase.; Staging, lung cancer, non-smallcell; Pt with h/o right lung nsclc, tx with sABR November 2022, ? tumorresponse, and new or progressive disase.;C34.11:Primary cancer of rightupper lobe of lung (HCC-CMS) Technique: CT scan of the chest was performed without contrast material. Thin sectionreconstructions were performed. This CT used either dose modulation and/or iterative reconstructiontechniques to lower radiation dose. Comparison: Outside chest CT 05/13/2022. Findings: Lower neck: There is slight enlargement of the left lobe of thyroidcontaining multiple calcifications, findings unchanged from comparisonstudies of May 13, 2022. Mediastinum and carmen (non-vascular): No enlarged mediastinal or hilarlymph nodes. The esophagus appears normal. There are some surgical clipsin the left upper paravertebral region at the T3 and T4 levels likelyreflecting history of prior resection in this region. Cardiovascular: There is severe coronary arterial atheroscleroticcalcification and severe calcification of the thoracic aorta and moderatearch vessel atherosclerotic calcification noted. The left atrium isenlarged. Lungs and airways: The exam shows significant decrease in size of thenodule seen in the right lung apex posteriorly on the prior examination,now seen to measure approximately 10 mm average diameter with somesurrounding groundglass and reticulation that likely reflects changesassociated with stereotactic radiation. There is some linear scarring andatelectasis within the inferior lingula. There is mild airways thickening.There is moderate centrilobular emphysema most severe within the rightupper lobe of lung. There are multiple groundglass attenuation lesionswithin the right upper lobe of lung the largest measuring approximately 12mm greatest axial diameter in the upper lobe inferiorly just above theminor fissure has not changed significantly from April 2022. There is apoorly defined 7 mm diameter groundglass attenuation lesion within theleft lower lobe of lung posteriorly (series 202 image 324), stable. Thereis a calcified granuloma in the posterior basal segment of the left lower lobe. Pleura: There is a very small right pleural effusion dependently likelyrelated to the radiation treatment.. Upper abdomen (limited to upper abdomen, not optimized for abdominalimaging): Normal. Chest wall soft tissues: No abnormalities in the chest wall softtissues. Bones: There are is evidence of prior midline sternotomy. There arepostsurgical changes with partial resection of the left fourth ribpresumably associated with the resection in the left upper thoracicparavertebral region. IMPRESSION Decrease in size of treated right upper lobe lesion now measuring 10 mmaverage diameter with surrounding changes likely related to radiationtreatment. Trace right pleural effusion likely radiation related. Multiple groundglass attenuation lesions in the right upper lobe, stable.At least one groundglass attenuation nodule superior segment left lowerlobe posteriorly. Given the history of lung cancer and presence ofemphysema, these warrant continued follow- up for a minimum of 5 years toconfirm stability in size and density. Status post sternotomy and left thoracotomy. Emphysema. Calcified granuloma left lower lobe Severe coronary and aortic atherosclerotic calcification.. Slight enlargement of left lobe of thyroid with calcifications,unchanged. [id number] Pj Bourne MD IMG CT ORDERABLES documented in this encounter Visit Diagnoses Diagnosis 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-CMS) documented in this encounter Care Teams Boxer Operator Relationship Specialty Start Date End Date Esther Verma FNP [address] [facility] [address] [place] [phone] PCP - General 07/27/22 Pj Bourne MD [address] [facility], [facility] [address] [place] [address] Radiation Oncology 10/21/22 documented as of this encounter
--- OUTSIDE RECORDS SUMMARY | 2024-02-15 14:58 | XMS_ITS | Encounter Summary ---
Author Organization [facility] Address [address] [place] [address] Care Team Providers Care Rig Supervisor Name Role Phone Erinn Vermay EDWARD Primary Care Provider [phone] Pj Bourne MD Unavailable [phone] Reason for Referral * Radiology Services (Routine/Next Available) - Authorization Not Required Specialty Diagnoses / Procedures Referred By Chau car Referred To Contact Diagnoses 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-CMS) Procedures CT CHEST WO CONTRAST CT CHEST WO CONTRAST Pj Bourne MD [address] [place] [phone] [facility] Referral ID Status Reason Start Date Expiration Date Visits Requested Visits Authorized [id number] Authorization Not Required 3 1 1 Reason for Visit * Radiology Services (Routine/Next Available) - Authorization Not Required Specialty Diagnoses / Procedures Referred By Chau car Referred To Contact Diagnoses 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-CMS) Procedures CT CHEST WO CONTRAST CT CHEST WO CONTRAST Pj Bourne MD [address] [place] [phone] [facility] Referral ID Status Reason Start Date Expiration Date Visits Requested Visits Authorized [id number] Authorization Not Required 3 1 1 Encounter Details Date Type Department Care Team (Latest Contact Info) Description 12/02/2023 8:17 EDT - 12/02/2023 23:59 EDT [facility] - Main [address] [address] Primary cancer of right upper lobe of [...] Contact Info) Description 06/08/2024 13:30 EST Appointment [facility] Radiology CT Outpatient - [address] [address] 06/08/2024 14:30 EST Office Visit [facility] Radiation Oncology - [address] [phone] Pj Bourne MD [address] [facility], Level [address] [place] [address] documented as of this encounter Procedures Procedure Name Priority Date/Time Associated Diagnosis Comments CT CHEST WO CONTRAST Routine 12/02/2023 8:35 [...] is needed. 3. ??Additional chronic findings above. [id number] Narrative 12/02/2023 9:[address] CHEST WO [...] the left T4 vertebra. Resulting Agency Comment [id number] Procedure Note Soy Goodman MD - 12/02/2023 [...] is needed. 3. Additional chronic findings above. [id number] Pj Bourne MD IMG CT ORDERABLES documented in this encounter Visit Diagnoses Diagnosis 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-CMS) documented in this encounter Care Teams Rig Supervisor Relationship Specialty Start Date End Date Esther Verma FNP [address] [place] [address] [address] [place] [phone] PCP - General 07/27/22 Pj Bourne MD [address] [place] [address] 2 [place] [address] Radiation Oncology 10/21/22 documented as of this encounter
--- OUTSIDE RECORDS SUMMARY | 2024-02-15 14:59 | XMS_ITS | Encounter Summary ---
Author Organization [facility] Address [address] [place] [address] Care Team Providers Care Loan Manager Name Role Phone Esther Verma EDWARD Primary Care Provider [phone] Reason for Visit * Reason Onset Date Comments Appointment Related 08/05/2022 Encounter Details Date Type Department Care Team (Late st Contact Info) Description 08/05/2022 Telephone [facility] Interventional Radiology - [address] [address] Roberto Cardoza, PARemiC [address] [place] [address], [address] [place] [phone] Appointment Related Social History Tobacco Use Types Packs/Day Years Used Date Smoking Tobacco: Former Cigarettes Q uit: 07/28/2009 Smokeless Tobacco: Never Interpersonal Safety Answer Date Record ed Physically [...] encounter Miscellaneous Notes * Telephone Encounter - Jennifer Bloom - 08/05/2022 1223 EST Spoke with Edwige in regards to scheduling their outpatient CT RUL BX [facility]. Patient will be coming in on 08/23 at 9:00 AM The following details were reviewed with patient to ensure procedure completed on scheduled date: -Patient understands that they will need a city route driver for this procedure. -Patient understands that they should plan to be here for 5-6 hours that day in total for prep, procedure and recovery. Pre procedure instructions: Covid 19 Policy: As of January 19 2022, Pre- procedure Covid -19 testing is no longer required. Please call our officeif you become sick or experience any Covid-19 symptoms prior to this appointment. Symptoms include fever, cough, sore throat, loss of taste or smell or difficulty breathing. You will also be screenedfor symptoms on the day of the procedure upon arrival to the hospital. Medication instruction: - RN to contact with detailed pre procedure medication instructions - They will take their morning medications with a small sip of water. - Per Triaged RN letter patient confirmed that they are taking Eliquis a blood thinning medicationsat this time last dose of this medication will be : Last dose 08/20. -Patient verbalized understanding of OTC pain medication policy DAY OF PROCEDURE PREP: Patient confirmed understanding of the following instructions: -No solid food or liquids containing fats, including milk after midnight before the procedure. -On the day of procedure, only water, apple juice or sports drinks (gatorade or powerade) until 2 hours before the check in time (starting at 7:00 AM) After 7:00 AM, nothing by mouth. Please be sure to take a shower either the evening before or the morning of your procedure. You may take your medications as directed at any time with small sips of water. Do not bring any valuables with you to the hospital. If you use a BiPAP or CPAP machine to help you breathe, please bring it with you on the day of the procedure. Please bring a list of your allergies and current medications. Please notify our office if there is any change in your health such as a cold or a fever. Patient aware IR RN will contact prior to procedure to go over prep in detail and answer any questions. I have sent patient confirmation via mail. I have notified referring office of this patients scheduled date and time. Any further questions can be addressed to Interventional Radiology Department [phone] Ext. 1 Patient verbalized understanding and agrees with Plan of Care. No cognitive barriers were identified during this conversation & they have our contact number to call with questions. Jennifer Bloom documented in this encounter Plan of Treatment Upcoming Encounters Date Type Department Care Team (Late st Contact Info) Description 06/08/2024 13:30 EST Appointment [facility] Radiology CT Outpatient - [address] [phone] 06/08/2024 14:30 EST Office Visit [facility] Radiation Oncology - [address] [phone] Pj Bourne MD [address] [place] [address], [address] [place] [phone] documented as of this encounter Visit Diagnoses Not on filedocumented in this encounter Care Teams Loan Manager Relationship Specialty Start Date End Date Esther Verma FNP [address] [facility] [address] [place] [phone] PCP - General 07/27/22 documented as of this encounter
--- OUTSIDE RECORDS SUMMARY | 2024-02-15 14:59 | XMS_ITS | Encounter Summary ---
Author Organization [facility] Address [address] [place] [address] Care Team Providers Care International Marketing Intern Name Role Phone Bayron Esther EDWARD Primary Care Provider [phone] Pj Bourne MD Unavailable [phone] Encounter Details Date Type Department Care Team (Late st Contact Info) Description 11/15/2022 Radiation Therapy Visit [facility] Radiation Oncology - [address] [phone] Pj Bourne MD [address] [place] [address], [address] [place] [phone] Primary cancer of right upper [...] Progress Notes * Pj Bourne MD - 11/15/2022 1331 EDT DIVISION OF RADIATION ONCOLOGY- SABR ON TREATMENT VISIT NOTE Diagnosis: Cancer Staging 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-CMS) Staging form: Lung, AJCC 8th Edition - Clinical: Stage IA2 (cT1b, cN0, cM0) - Signed by Pj Bourne MD on 09/13/2022 Date: 11/15/2022 Preparation for SBRT Treatment Treatment planning was performed in advance of this SBRT treatment delivery. Prior to this treatment, the physicist analyzed the set-up for potential collisions of the apparatus with the patient, treatment couch, or other devices and the appropriate modifications were made. QA was performed by physics staff. Pre-Treatment Assessment The dose to date is 4400 cGy. The planned total dose is 5500 [...] Contact Info) Description 06/08/2024 13:30 EST Appointment [facility] Radiology CT Outpatient - [address] [id number] 06/08/2024 14:30 EST Office Visit [facility] Radiation Oncology - [address] [phone] Pj Bourne MD [address] [place] [phone] documented as of this encounter Visit Diagnoses Diagnosis 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-CMS)- Primary documented in this encounter Care Teams International Marketing Intern Relationship Specialty Start Date End Date Esther Verma FNP [address] [phone] PCP - General 07/27/22 Pj Bourne MD [address] [place] [phone] Radiation Oncology 10/21/22 documented as of this encounter
--- OUTSIDE RECORDS SUMMARY | 2024-02-15 14:59 | XMS_ITS | Encounter Summary ---
Author Organization [facility] Address [address] [place] [address] Care Team Providers Care Chief Operations Officer Name Role Phone Esther Verma Primary Care Provider [phone] Pj Bourne MD Unavailable [phone] Encounter Details Date Type Department Care Team (Latest Contact Info) Description 11/17/2022 14:00 EDT - 11/17/2022 23:59 EDT Hospital Encounter [facility] Radiation Oncology - [address] [address] [facility] Resource, [facility] Discharge Disposition: Home or Self Care Social [...] D2, (VITAMIN D ORAL) Take by mouth. HUMULIN N NPH INSULIN KWIKPEN 100 unit/mL [...] Contact Info) Description 06/08/2024 13:[address] [facility] Radiology CT Outpatient - [address] [address] 06/08/2024 14:30 EST Office Visit [facility] Cancer Center Radiation Oncology - [address] [address]221 Pj Bourne MD [address] [place] [phone] documented as of this encounter Visit Diagnoses Not on filedocumented in this encounter Care Teams Chief Operations Officer Relationship Specialty Start Date End Date Esther Verma FNP [address] [place] [phone] PCP - General 07/27/22 Pj Bourne MD [address] [place] [phone] Radiation Oncology 10/21/22 documented as of this encounter
--- OUTSIDE RECORDS SUMMARY | 2024-02-15 14:59 | XMS_ITS | Encounter Summary ---
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 Name Role Phone Esther Verma EDWARD Primary Care Provider [phone] Reason for Referral * Test (Routine/Next Available) - Authorization Not Required Specialty Diagnoses / Procedures Referred By Contac t Referred To Contact Diagnoses Lung mass Procedures PULMONARY FUNCTION TESTING Carlyle Engle MD [address] [place] [address], [address] [place] [address] Referral ID Status Reason Start Date Expiration Date Visits Requested Visits Authorized [id number] Authorization Not Required 09/10/2022 1 1 Encounter Details Date Type Department Care Team (Late st Contact Info) Description 09/10/2022 Orders Only [facility] [place] Cancer Center Hematology & [place] [address] Francisco Thibodeaux RN Lung mass (Primary Dx) Social History Tobacco Use Types [...] No 03/28/2020 Cognitive Status Response Date of Assess ent Because of a physical, menta l, or emotional condition, does this person have serious difficulty concentrating, remembering, or making decisions? No 03/28/2020 documented as of this encounter Plan of Treatment Upcoming Encounters Date Type Department Care Team (Late st Contact Info) Description 06/08/2024 13:30 EST Appointment [facility] Radiology CT Outpatient - [address] [address] 06/08/2024 14:30 EST Office Visit [facility] Radiation Oncology - [address] [phone] Pj Bourne MD [address] [place] [address], [address] [place] [phone] documented as of this encounter Results * PULMONARY FUNCTION TESTING (09/13/2022 13:54 EST) 09/13/2022 13:5 4 EST Carlyle Engle MD PFT ORDERABLES Performing Organization Address City/State/[facility] Co de Phone Number [facility] PFT documented in this encounter Visit Diagnoses Diagnosis Lung mass- Primary Swelling, mass, or lump in chest documented in this encounter Care Teams Overhead Crane Operator Relationship Specialty Start Date End Date Esther Verma FNP [address] [facility] [address] [place] [address] PCP - General 07/27/22 documented as of this encounter
--- OUTSIDE RECORDS SUMMARY | 2024-02-15 14:59 | XMS_ITS | Encounter Summary ---
Author Organization [facility] Address [address] [place] [address] Care Team Providers Care Lab Head Name Role Phone Esther Verma EDWARD Primary Care Provider [phone] Reason for Referral * Radiology Services (Routine/Next Available) - Authorization Not Required Specialty Diagnoses / Procedures Referred By Contac t Referred To Contact Diagnoses Lung nodule Procedures IR BIOPSY Price Delong MD MPH [address] [address] [facility] Referral ID Status Reason Start Date Expiration Date Visits Requested Visits Authorized [id number] Authorization Not Required 08/02/2022 1 1 Reason for Visit * Radiology Services (Routine/Next Available) - Authorization Not Required Specialty Diagnoses / Procedures Referred By Contac t Referred To Contact Diagnoses Lung nodule Procedures IR BIOPSY Price Delong MD MPH [address] [address] [facility] Referral ID Status Reason Start Date Expiration Date Visits Requested Visits Authorized [id number] Authorization Not Required 08/02/2022 1 1 Encounter Details Date Type Department Care Team (Late st Contact Info) Description 08/23/2022 8:54 EST - 08/23/2022 13:29 EST Hospital Encounter [facility] Interventional Radiology Unit [address] [place] [address] Roberto Cardoza PA-C [address] [phone] Asher Loyola MD [address] [address] Lung nodule Discharge Disposition: Home or Self Care [...] Sign Reading Time Taken Comments Blood Pressure 136/74 08/23/2022 1300 EST Pulse - - Temperature 36 ??C (96.8 ??F) 08/23/2022 1136 EST Respiratory Rate 16 08/23/2022 1300 EST Oxygen Saturation 96% 08/23/2022 1300 EST Inhaled Oxygen Concentration - - Weight 88.5 kg (195 lb) 08/23/2022 0923 EST Height 160 cm (5' 3) 08/23/2022 0923 EST Body Mass Index 34.54 08/23/2022 0923 EST documented in this encounter Functional Status [...] No 03/28/2020 documented as of this encounter Discharge Instructions * Discharge Instructions* Sandy Ireland RN - 08/23/2022 11:02 EST Interventional Radiology Discharge Instructions Following Your Lung Biopsy Date: 08/23/2022 Procedure Site - Right chest Provider - Asher Loyola MD and Benji Cardoza PA-C The results of your procedure will go to the provider who ordered the procedure. It may take 5-7 days for procedure results to come back. Aftercare: Today: If you have received sedation for your procedure, do not drive or make any legal decisions for 24 hours after your procedure. Activity: Leave the hospital In a wheelchair even if you feel well. Have someone drive you home. Rest today - you may resume normal activity tomorrow. Do not lift anything over 10 lbs for 24 Hours. Diet: You may resume your usual diet. Do not drink alcohol for 24 hours. Medications: You may resume your usual medications. You may take tylenol (acetaminophen) for any discomfort you may have. If you were on baby Asprin (81 mg), you may continue this medication. Blood thinning medicine: Do not take full strength Asprin (325 mg) or any NSAID medications for 24 hours (ibuprofen/Advil or Motrin, Aleve/naproxen) after your procedure. Other blood thinning medication:Asher Loyola MD and Benji Cardoza PA-C would like you to wait 24 hours after your procedure before resuming your Elaquis. Bandage Check the dressing or Band-Aid throughout the day for any increase in drainage. Keep the Band-Aid or dressing dry for 24 hours, and replace it if necessary. If you notice any bleeding, apply pressurefor 10 minutes and slowly release the pressure to see if the bleeding has stopped. Showering Do not take a shower until 24 hours after your procedure. After this time you may shower after removing the dressing. Gently wash your wound site with soap and water. You may keep the wound site opento air, or use a bandaid to cover the site if there is any drainage. Do not take a tub bath, swim, or soak in a hot tub for 5 days. When to Contact the [facility] (call 911 for severe symptoms): 1. Increased shortness of breath 2. Chest, upper back, or shoulder pain (take tylenol for mild pain) 3. If you cough up more than 2 tablespoons of blood 4. Dizziness 5. Heavy bleeding at wound site 6. Symptoms of infection: pain, redness, drainage or swelling at the puncture site or if you develop a fever greater than 101F (38.5C) and/or shaking chills. IF YOU HAVE ANY QUESTIONS OR CONCERNS OR IF YOU HAVE DEVELOPED ANY OF THE SYMPTOMS ABOVE, PLEASE CALL THE INTERVENTIONAL RADIOLOGY CLINIC AT , OPTION 2 TO REACH THE NURSE TRIAGE LINE. THERE WILL BE ASSISTANCE AVAILABLE 24 HOURS A DAY. IF YOU CALL AFTER HOURS YOU WILL BE CONNECTED WITHAN ON-CALL PHYSICIAN BY PRESSING 1. documented in this encounter Medications at Time [...] or Self Care documented in this encounter Progress Notes * Sandy Ireland RN - 08/23/2022 0900 EST Procedure: RUL lung bx Patient received from CVU to IR 25 at 1019. Patient name and verified using armband and verbally. Consent completed and verified. Patient is alert and oriented x 4, able to follow commands with all extremities, able to make needs known. NO complains of pain. Patient's allergies, medications, lab results, and eligibility for IV moderate sedation reviewed. The patient is eligible for IV moderate sedation, IV site checked for patency. Patient educated on procedure and sedation side effects explained, patient verbalized understanding. Patient in prone position on table, safety straps in place. VS assessed. Time out completed with all staff in room prior to the start of procedure (RICAK, LISA, MBPatrick, TK, and Dr. Loyola as supervising provider). Pre-procedure CT scan completed. Dr. Loyola present in the room prior to conscious sedation initiation, conscious sedation started.Patient monitored throughout procedure. Sterile prep of right posterior chest with duraprep by AAK in the usual sterile fashion in compliance with manufacturers recommendation. CT guidance utilized to access RUL of the lung. Cytology at the bedside, samples collected, samplesconfirmed by cytology and sent to the lab. Puncture site dressed with a bandaid, dressing is clean/dry/intact. Procedure completed by Roberto Cardoza PA-C with Dr. Loyola as supervising provider. Procedure well tolerated by patient, vital signs stable. Medication administration IV Versed 1.5 mg IV Fentanyl 100 mcg Sedation time with Dr. Loyola: 34 minutes Follow up: Please release sign & held post procedure orders. Patient should remain NPO and on 2L NC until post procedure chest x-ray is read by radiology and cleared. Discharge instructions placed in the patient's chart. Report given to MERARI Driscoll. Discharge instructions to be reviewed with the patient by the discharging RN. Patient transferred in stable condition. * Shilpi Burleson RN - 08/23/2022 0900 EST Edwige Davis arrived to CVU #6 at 1134 via stretcher s/p RUL lung biopsy. Alert and oriented x3. 1220 Patient vomiting after c/o nausea, Benji TREVINO notified and IVP zofran 4mg given early with permission. 1320 Patient vomiting again, MD aware. 1330 Patient brought for CXR, no pneumothorax noted. 1345 Benji TREVINO in to bedside. 1420 Patient remains somnolent, unable to wean off of 2L NC. 1555 Patient OOB, no complaints of pain, nausea, lightheadedness or dizziness. 1615 Patient discharged to home via WC with daughter Anabell. documented in this encounter H&P Notes * Roberto Cardoza PA-C - 08/23/2022 09 EST The preoperative history and physical which was performed within 30 days of this procedure has been reviewed and the clinically appropriate elements of the physical examination have been repeated. There are no changes to the documented history and physical or if so such changes are documented below Roberto Cardoza PA-C 08/23/2022 10:05 Source Note - Price Delong MD MPH - 07/26/2022 12:00 EST INTERVENTIONAL PULMONARY OFFICE NOTE Date: 07/26/2022 Reason for Consult: Subjective: Ms. Daivs is a 71 y.o. female with a past medical history of atrial fibrillation and chf (unknown EF) who presents today for evaluation of a right upper lobe nodule. The nodule was first noted when she presented to [facility] with atrial fibrillation and increasing pulmonary edema in June. This episode rapidly resolved with better heart rate control. The CT also noted enlarged mediastinal lymphnodes. She was seen by Dr. Glover at [facility] and subsequently underwent a PET-CT demonstrating uptake within the nodule. She presents today to discuss next steps. The LE edema has been well controlled. She denies orthopnea and can lye flat. There is no history of syncope or light headed ness. She can walk 1 flight of stairs. Is not limited on a daily basis by dyspnea, although she reports that she does move slowly. She has not had infectious symptoms or respiratory infections. No history of complications with anesthesia. No known history of bleeding dyscrasias. ROS: Otherwise negative in detail. Meds: Current Outpatient Medications: ??? aspirin chewable 81 mg tablet, Take 81 mg by mouth daily., Disp: , Rfl: ??? betamethasone valerate (VALISONE) 0.1 % ointment, Apply topically if needed., Disp: , Rfl: ??? calcium carbonate (TUMS) 200 mg calcium (500 mg) tablet,chewable, Take 1 Tablet by mouth daily., Disp: , Rfl: ??? clobetasoL (TEMOVATE) 0.05 % cream, Apply 1 application topically 2 times daily. (Patient not taking: Reported on 07/26/2022), Disp: , Rfl: ??? dilTIAZem (TIAZAC) 120 mg SR capsule, Take by mouth daily. (Patient not taking: Reported on 07/26/2022), Disp: , Rfl: ??? ELIQUIS 5 mg tablet, Take 5 mg by mouth 2 times daily., Disp: , Rfl: ??? ergocalciferol, vitamin D2, (VITAMIN D ORAL), Take by mouth., Disp: , Rfl: ??? furosemide (LASIX) 20 mg tablet, Take 40 mg by mouth daily., Disp: , Rfl: ??? HUMULIN N NPH INSULIN KWIKPEN 100 unit/mL (3 mL) injectable pen, Inject 15 Units into the skin daily., Disp: , Rfl: ??? insulin aspart (NOVOLOG FLEXPEN U-100 INSULIN SUBQ), Inject into the skin. 23 mg, Disp: , Rfl: ??? lidocaine (XYLOCAINE) 5 % ointment, Apply topically as needed., Disp: , Rfl: ??? lisinopriL (PRINIVIL) 5 mg tablet, Take 5 mg by mouth daily., Disp: , Rfl: ??? metoprolol XL (TOPROL-XL) 100 mg tablet, Take 100 mg by mouth daily., Disp: , Rfl: ??? montelukast (SINGULAIR) 10 mg tablet, Take 10 mg by mouth daily., Disp: , Rfl: ??? nitroGLYCERIN (NITROSTAT) 0.4 mg SL tablet, Place 0.4 mg under the tongue every 5 minutes as needed for Chest Pain., Disp: , Rfl: ??? tiotropium bromide (SPIRIVA RESPIMAT INHALATION), Inhale 2 Puffs as directed daily., Disp: , Rfl: Allergies: is allergic to erythromycin, gabapentin, other - see comments, plavix [clopidogrel], sudafed [pseudoephedrine hcl], and sulfa (sulfonamide antibiotics). PMHx: has no past medical history on file. PSHx: has no past surgical history on file. Family Hx: family history is not on file. Mother - No clear family history of lung cancer. Her mother from a procedural complication at [facility]. She believes it was a percutaneous biopsy. Social Hx: Social History Tobacco Use ??? Smoking status: Former Types: Cigarettes Quit date: 07/28/2009 Years since quittin.0 ??? Smokeless tobacco: Never Lives at home with: Occupation: Previously worked at [employer]. 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 No asbestos. Tobacco: Prev Exam: Blood pressure (!) 150/90, pulse 57, temperature 35.8 ??C (96.5 ??F), temperature source Tympanic, height 162.6 cm (64), weight 89.4 kg (197 lb), SpO2 95 %. Gen: Well NAD, sitting in chair Head: Normocephalic, atraumatic. Eyes: PERRL Sclera anicteric, EOMI Mouth: Mallampati 3, Throat: Oropharynx clear without erythema or exudates Neck: Supple, no LAD CV: Regular, S1, S2, no murmurs Lungs: CTAB without rales, rhonchi or wheezing Abd: Soft, non-distended, normoactive bowel sounds, non-tender Ext: No edema, clubbing or cyanosis Skin: Warm and dry; no rashes or lesions Imaging: CT Chest and PET-CT independently personally reviewed, findings as noted above Assessment: Ms. Davis is a 71-year-old woman with history of tobacco use who was right upper lobe nodule. This nodule is just over 2 cm diameter criteria for basal mediastinal staging based on guidelines. Additionally there are enlarged lymphadenopathy on the CT scan, although these were not PET avid. 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 She has a good functional status and does not otherwise not have additional risk factors. We recommended by bronchoscopy with EBUS TB NA as initial test all risk benefits and alternatives were discussed informed consent obtained. Plan: Preop evaluation Schedule robotic bronchoscopy The interventional pulmonary RN will be contacting the patient in follow up for education and assessment post procedure. Thanks for asking us to see this patient today Price Delong MD MPH 65 minutes was spent on the day of the visit in evaluation and coordination of care documented in this encounter Procedure Notes * Roberto Cardoza PA-C - 08/23/2022 0900 EST IR Procedure Note Procedure: CT guided RIGHT lung biopsy Date Performed: 08/23/2022 Radiologist/Cover Creaser(s): MD Milla/ELIEZER Cardoza Sedation/Anesthesia: Versed 1.5 mg Fentanyl 100 mcg Time Out: A time-out was completed prior to procedure verifying correct patient, procedure, site, positioning, and special equipment if applicable. Estimated Blood Loss: Unless otherwise noted, there was no blood loss, specimens removed, cultures obtained, or drains retained. Specimens: FNA x multiple and 20 ga cores Fluoroscopy Time: See dictated procedure note Contrast Volume: none Complications: none Condition: stable Post Procedure Diagnosis: Right lung nodule Findings: Cells for cytologic diagnosis Recommendations: F/u cytology Roberto Cardoza PA-C 08/23/2022 11:33 documented in this encounter Plan of Treatment Upcoming Encounters Date Type Department Care Team (Late st Contact Info) Description 06/08/2024 13:30 EST Appointment [facility] Radiology [place] [address] 06/08/2024 14:30 EST Office Visit [facility] Radiation Oncology - [facility] [address] [place] [address] Pj Bourne MD 111 [facility] [place], [address] [place] [address] documented as of this encounter Procedures Procedure Name Priority Date/Time Associated Diagnosis Comments POCT GLUCOSE, INTERFACED Routine 08/23/2022 13:49 EST XR CHEST 1 VIEW STAT 08/23/2022 13:44 EST IR BIOPSY Routine 08/23/2022 11:33 EST Lung nodule NON PIZZA DRIVER/FNA CYTOLOGY Routine 08/23/2022 11:15 EST Lung nodule SURGICAL PATHOLOGY Routine 08/23/2022 11 :15 EST Lung nodule POCT GLUCOSE, INTERFACED Routine 08/23/2022 9:47 EST documented in this encounter Results * (ABNORMAL) POCT GLUCOSE, INTERFACED (08/23/2022 13:49 EST) Glucose, POC 224(H) 70 - 100 mg/dL 08/23/2022 13:52 EST [facility] HN LAB POC COMMENT (GLUCOSE) Test Performed by Nursing Services 08/23/2022 13:52 EST [facility] Blood CAPILLARY BLOOD / Unknown 08/23/2022 13:49 EST 08/23/2022 13:52 EST Roberto Cardoza PA-C POINT OF CARE GILBERT T ORDERABLES [facility] [address] [place] [address] * XR CHEST 1 VIEW (08/23/2022 13:44 EST) Anatomical Region Laterality Modality Computed Radiogr aphy 08/23/2022 13:5 2 EST Impressions 08/23/2022 13:52 EST No pneumothorax after right upper lobe lung biopsy. Narrative 08/23/2022 13:52 EST XR CHEST 1 VIEW ??08/23/2022 1:35 PM CLINICAL HISTORY/COMMENTS: lung nodule s/p biopsy right COMPARISON: Outside chest CT May 13, 2022.. TECHNIQUE: Single frontal view of the chest. FINDINGS: Soft tissues and extrathoracic findings: ??None. Bones: Sternotomy wires are seen overlying the upper sternum. There are paravertebral surgical clips. There has been resection of the left fourth rib. ?? Cardiac and mediastinal contours: Normal. Lungs: There is a nodule in the right upper lobe of lung corresponding with findings on the recent chest CT examination. There is a linear area of scarring or atelectasis within the left lower lung laterally. ?? Pleura/diaphragms: There is no pneumothorax status post right lung biopsy. Procedure Note Nigel Lehman MD - 08/23/2022 XR CHEST 1 VIEW 08/23/2022 1:35 PM CLINICAL HISTORY/COMMENTS: lung nodule s/p biopsy right COMPARISON: Outside chest CT May 13, 2022.. TECHNIQUE: Single frontal view of the chest. FINDINGS: Soft tissues and extrathoracic findings: None. Bones: Sternotomy wires are seen overlying the upper sternum. There areparavertebral surgical clips. There has been resection of the left fourthrib. Cardiac and mediastinal contours: Normal. Lungs: There is a nodule in the right upper lobe of lung correspondingwith findings on the recent chest CT examination. There is a linear areaof scarring or atelectasis within the left lower lung laterally. Pleura/diaphragms: There is no pneumothorax status post right lung biopsy. IMPRESSION No pneumothorax after right upper lobe lung biopsy. Roberto Cardoza PA-C [facility] IM AGING ORDERABLES * IR BIOPSY (08/23/2022 11:33 EST) Anatomical Region Laterality Modality Computed Tomogra phy 08/23/2022 13:4 4 EST Impressions 08/23/2022 13:44 EST Successful, uncomplicated CT guided percutaneous right upper lobe nodule FNA and core biopsy. Narrative 08/23/2022 13:44 EST History: Right upper lobe lung nodule Technique and Findings: Written consent was obtained. The patient was prepped and draped in sterile fashion. 1% lidocaine was used for local analgesia. Conscious sedation was administered with the monitoring of the patient's heart rate, blood pressure, respiratory rate, and oxygen saturation. ??I personally spent 30 minutes in continuous [id number] attendance with the patient during the administration of the moderate sedation and supervised the moderate sedation services that were monitored by an independent trained observer who had no other duties during the procedure. I have personally reviewed the nursing documentation. CT guidance was used to position a coaxial needle in the posterior right upper lobe lesion percutaneously. FNA samples were obtained and analyzed by the pathology service present for the biopsy. At the request of the cytopathology service, several core specimens of the lesion were obtained and submitted for analysis. Finally, all needles were removed and hemostasis was achieved with a pressure bandage and sterile dressing. The patient tolerated the procedure well without complication. Assistance was provided by BELINDA Busby as there was no qualified resident available. Procedure Note Asher Loyola MD - 08/23/2022 History: Right upper lobe lung nodule Technique and Findings: Written consent was obtained. The patient was prepped and draped insterile fashion. 1% lidocaine was used for local analgesia. Conscioussedation was administered with the monitoring of the patient's heart rate,blood pressure, respiratory rate, and oxygen saturation. I personallyspent 30 minutes in continuous [id number] attendance with the patientduring the administration of the moderate sedation and supervised themoderate sedation services that were monitored by an independent trainedobserver who had no other duties during the procedure. I have personallyreviewed the nursing documentation. CT guidance was used to position a coaxial needle in the posterior rightupper lobe lesion percutaneously. FNA samples were obtained and analyzedby the pathology service present for the biopsy. At the request of the cytopathology service, several core specimens of thelesion were obtained and submitted for analysis. Finally, all needles were removed and hemostasis was achieved with apressure bandage and sterile dressing. The patient tolerated the procedurewell without complication. Assistance was provided by BELINDA Busby as there was no qualifiedresident available. IMPRESSION Successful, uncomplicated CT guided percutaneous right upper lobe noduleFNA and core biopsy. Price Delong MD MPH [facility] * SURGICAL PATHOLOGY (08/23/2022 11:15 EST) Note to Patient The following pathology results have been interpreted by your pathologist and may be available to you before your health provider has had the opportunity to review them. Please allow time for your provider to receive these results and explore management options, if applicable. 08/25/2022 5:46 [facility] Final Diagnosis A. LUNG, RIGHT UPPER LOBE, BIOPSY: - Fibrino-fibrous tissue with elasto-fibrotic degenerative change. - Minute portion of mildly atypical epithelial cells. - No definitive malignancy identified. 08/25/2022 5:46 [facility] Diagnosis Comment Deeper levels of (A1) and (A2) have been examined. Please see and correlate with the finding(s) of the concurrent cytology specimen ([id number]). 08/25/2022 5:46 [facility] Attestation By the signature below, the attending physician certifies that they have 1) personally conducted a gross and/or microscopic examination of the described specimen(s), and/or personally interpreted the results of laboratory testing of the described specimen(s), and 2) personally rendered or confirmed the above diagnosis. 08/25/2022 5:46 [facility] at 0546 Clinical History Former smoker seen for A-fib and found to have LAD and a 2 cm nodule FDG + in RUL; evaluate for malignancy; clinical diagnosis code: R91.1 08/25/2022 5:46 [facility] Gross Description A. Received in formalin labelled with proper patient identification (initials B, G) and not otherwise specified are two cortez-pink tissue cores (0.5 cm and 0.4 cm in length, and each less than 0.1 cm in diameter). Entirely submitted in A1-A2. Kizzy Becker 08/23/2022 12:04 08/25/2022 5:46 [facility] Performing Lab [facility] 08/25/2022 5:46 EST [facility] Scanned Images 08/25/2022 5:46 [facility] Tissue ENTIRE RIGHT UPPER LOBE OF LUNG / Unknown Collection, Other / Unknown 08/23/2022 11:15 EST 08/23/2022 11:38 EST Roberto Cardoza PA-C PATHOLOGY ORDERAB LES [facility] [address] [place] [address] * NON PIZZA DRIVER/FNA CYTOLOGY (08/23/2022 11:15 EST) Note to Patient The following pathology results have been interpreted by your pathologist and may be available to you before your health provider has had the opportunity to review them. Please allow time for your provider to receive these results and explore management options, if applicable. 08/25/2022 12:02 [facility] Final Diagnosis A. LUNG, RIGHT UPPER LOBE, 2.0 CM MASS, CT-GUIDED FINE NEEDLE ASPIRATION: - Positive for malignant cells. - Non-small cell carcinoma, favor adenocarcinoma. See comment. 08/25/2022 12:02 [facility] Diagnosis Comment The aspirate smears are moderately cellular and show loosely cohesive groups of malignant cells characterized by irregular nuclei and moderately abundant amphophilic cytoplasm. A cell block was prepared to increase cellular yield and shows rare tumor cell groups. Please see the concurrent surgical biopsy specimen ([id number]) for additional information. Administration Internship slides of this case were reviewed at the intradepartmental consultation conference. Immunoperoxidase stains were performed on this case to further characterize the lesion. ANTIBODY(CLONE)(BLO CK):RESULT TTF-1 (8G7G3/1, [place]) (Aspirate Smear): Positive, variable nuclear staining NOTE: One or more of the reagents used in immunoperoxidase testing in this case may not have been cleared or approved by the U.S. Food and Drug Administration (FDA). The FDA has determined that such clearance or approval is not necessary. These tests are used for clinical purposes. They should not be regarded as investigational or for research. These reagents' performance characteristics have been determined by [facility] and/or by the referring laboratory. The positive and negative controls worked appropriately. If immunoperoxidase staining has been performed on alcohol fixed cytology specimens, which has not been fully validated, the assays should be interpreted with caution and correlated with clinical data. This laboratory is certified under the Clinical Laboratory Improvement Amendments of 1988 (CLIA-88) as qualified to perform high complexity clinical laboratory testing. 08/25/2022 12:02 [facility] Attestation By the signature below, the attending physician certifies that they have personally conducted a gross and/or microscopic examination of the described specimens and rendered or confirmed the above diagnosis. 08/25/2022 12:02 [facility] at 1202 Rapid Diagnosis A. LUNG, RIGHT UPPER LOBE, 2 CM MASS, CT GUIDED FINE NEEDLE ASPIRATION: Evaluation Episode 1: Pass 1-3: Scant tumor ( Pass # 1 best ) Evaluation Episode 2: Pass 4-6: Tumor present ( Pass # 6 best ) Core biopsies requested for ancillary studies. Rapid interpretation performed by: Dr. Maria G Henderson; 08.23.2022; 11:20 AM 08/25/2022 12:02 [facility] Clinical History 71 yo female former smoker seen for a-fib and found to have LAD and a 2 cm nodule FDG + in RUL. evaluate for malignancy 08/25/2022 12:02 [facility] Gross Description A. 11 fixed prepared slides, 3 air dried prepared slides, and 1 tube of RPMI for cell block processing were received. 08/25/2022 12:02 [facility] Performing Lab [facility] 08/25/2022 12:02 [facility] Scanned Images 08/25/2022 12:02 [facility] Fine Needle Aspirate ENTIRE RIGHT UPPER LOBE OF LUNG / Unknown 08/23/2022 11:15 EST 08/23/2022 11:35 EST Roberto Cardoza PA-C PATHOLOGY ORDERAB LES [facility] [address] [place] [address] * (ABNORMAL) POCT GLUCOSE, INTERFACED (08/23/2022 9:47 EST) Glucose, POC 171(H) 70 - 100 mg/dL 08/23/2022 9:48 EST [facility] HN LAB POC COMMENT (GLUCOSE) Test Performed by Nursing Services 08/23/2022 9:48 EST [facility] Blood CAPILLARY BLOOD / Unknown 08/23/2022 9:47 EST 08/23/2022 9:48 EST Roberto Cardoza PA-C POINT OF CARE GILBERT T ORDERABLES [facility] [address] [place] [address] documented in this encounter Visit Diagnoses Diagnosis Lung nodule Solitary pulmonary nodule documented in this encounter Administered Medications Inactive Administered Medications - up to 3 most recent administrations Medication Order MAR Action Action Date Dose Rate Site fentaNYL citrate (PF) injection 25-250 mcg 25-250 mcg, intravenous, ONCE PRN, 1 dose, Starting on Tue08/23/22 at 0910, Until Tue08/23/22 at 1120, Other, Radiology Procedure, Routine, Preprocedure Given 08/23/2022 11:20 EST 100 mcg midazolam (VERSED) injection 0.5-10 mg 0.5-10 mg, intravenous, ONCE PRN, 1 dose, Starting on Tue08/23/22 at 0910, Until Tue08/23/22 at 1120, Sedation, Routine, Preprocedure Given 08/23/2022 11:20 EST 1.5 mg ondansetron (PF) (ZOFRAN) injection 4 mg 4 mg, intravenous, EVERY 4 HOURS PRN, Starting on Tue08/23/22 at 0954, Until Tue08/25/22 at 0204, Nausea, Routine Given 08/23/2022 12:25 EST 4 mg Given 08/23/2022 10:02 EST 4 mg sodium chloride 0.9 % (NS) infusion 50 mL/hr, intravenous, CONTINUOUS, Starting on Tue08/23/22 at 0930, Until Tue08/25/22 at 0204, Routine, Preprocedure New Bag 08/23/2022 9:45 EST 50 mL/hr 50 mL/hr documented in this encounter Discontinued Medications Medication Sig Discontinue Reason Start Date End Da te clobetasoL (TEMOVATE) 0.05 % cream Apply 1 application topically 2 times daily. Therapy completed 08/23/2022 lidocaine (XYLOCAINE) 5 % ointment Apply topically as needed. Therapy completed 08/23/2022 documented as of this encounter Orders Medications Ordered That Mohinder ht Not Have Been Administered Count Last Ordered Date First Ordered Date flumazenil (ROMAZICON) injection 0.2 mg 1 0 08/23/2022 lidocaine (PF) 10 mg/mL (1 % ) injection 2 mg 1 08/23/2022 naloxone (NARCAN) injection 0.4 mg 1 2022 Discharge Count Last Ordered Date First Orde red Date DISCHARGE PATIENT 1 08/23/2022 documented in this encounter Care Teams Lab Head Relationship Specialty Start Date End Date Esther Verma FNP [address] [place] [address] [address] [place] [phone] PCP - General 07/27/22 documented as of this encounter
--- OUTSIDE RECORDS SUMMARY | 2024-02-15 14:59 | XMS_ITS | Encounter Summary ---
Author Organization [facility] Address [address] [place] [address] Care Team Providers Care Wharf Tender Head Name Role Phone Esther Verma Primary Care Provider [phone] Pj Bourne MD Unavailable [phone] Encounter Details Date Type Department Care Team (Latest Contact Info) Description 11/15/2022 - 11/15/2022 13:03 EDT Hospital Encounter [facility] Radiation Oncology - [place] [address] [place] [id number] Malignant neoplasm of upper lobe, right bronchus or lung (HCC-CMS) Discharge Disposition: Home or Self [...] Description 06/08/2024 13:30 EST Appointment [facility] Radiology CT Outpatient - [address] [id number] 06/08/2024 14:30 EST Office Visit [facility] Radiation Oncology - [address] [place] [address] Pj Bourne MD [address] [place] [address], [facility], [address] [place] [address] documented as of this encounter Procedures Procedure Name Priority Date/Time Associated Diagnosis Comments RAD ONC MSQ TREATMENT SUMMARY Routine 11/17/2022 14:38 EDT Malignant neoplasm of upper lobe, right bronchus or lung (HCC-CMS) RAD ONC MSQ TREATMENT SUMMARY Routine 11/15/2022 13:39 EDT Malignant neoplasm of upper lobe, right bronchus or lung (HCC-CMS) documented in this encounter Results * RAD ONC MSQ TREATMENT SUMMARY (11/17/2022 14:38 EDT) Treatment Site RU SABR MOSAI Q RADIATION ONCOLOGY Course Number 1 MOSAIQ RADIATION ONCOLOGY Prescribed Fractional Dose 1,100 cGray MOSAIQ RADIATION ONCOLOGY Prescribed Total Dose 5,500 cGray MOSAIQ RADIATION ONCOLOGY Actual Fractions Delivered 5 MOSAIQ RADIATION ONCOLOGY Actual Session Delivered Dose 1,100 cGray MOSAIQ RADIATION ONCOLOGY Actual Total Dose 5,500 cGray MOSAIQ RADIATION ONCOLOGY Prescribed Technique SABR MOSAIQ RADIATION ONCOLOGY Elapsed Days 9 MOSAIQ RADIATION ONCOLOGY Start Date 11/08/2022 MOSAIQ RADIATION ONCOLOGY Last Date 11/17/2022 MOSAIQ RADIATION ONCOLOGY Prescribed Number of Fractions 5 MOSAIQ RADIATION ONCOLOGY 11/17/2022 14:3 8 EDT Provider Unknown MD RADIATION ONCOLOGY O RDERASHA MOSAIQ RADIATION ONCOLOGY * RAD ONC MSQ TREATMENT SUMMARY (11/15/2022 13:39 EDT) Pathologist [facility] Treatment Site RU SABR MOSAI Q RADIATION ONCOLOGY Course Number 1 MOSAIQ RADIATION ONCOLOGY Prescribed Fractional Dose 1,100 cGray MOSAIQ RADIATION ONCOLOGY Prescribed Total Dose 5,500 cGray MOSAIQ RADIATION ONCOLOGY Actual Fractions Delivered 4 MOSAIQ RADIATION ONCOLOGY Actual Session Delivered Dose 1,100 cGray MOSAIQ RADIATION ONCOLOGY Actual Total Dose 4,400 cGray MOSAIQ RADIATION ONCOLOGY Prescribed Technique SABR MOSAIQ RADIATION ONCOLOGY Elapsed Days 7 MOSAIQ RADIATION ONCOLOGY Start Date 11/08/2022 MOSAIQ RADIATION ONCOLOGY Last Date 11/15/2022 MOSAIQ RADIATION ONCOLOGY Prescribed Number of Fractions 5 MOSAIQ RADIATION ONCOLOGY 11/15/2022 13:3 9 EDT Provider Unknown RADIATION ONCOLOGY O IRIS MOSAIQ RADIATION ONCOLOGY documented in this encounter Visit Diagnoses Diagnosis Malignant neoplasm of upper lobe, right bronchus or lung (HCC-CMS) documented in this encounter Care Teams Wharf Tender Head Relationship Specialty Start Date End Date Esther Verma FNP [address] [place] [phone] PCP - General 07/27/22 Pj Bourne MD [address] [place] [address] [address] [place] [address] Radiation Oncology 10/21/22 documented as of this encounter
--- OUTSIDE RECORDS SUMMARY | 2024-02-15 14:59 | XMS_ITS | Encounter Summary ---
Author Organization [facility] Address [address] [place] [address] Care Team Providers Care Power Reactor Operator Name Role Phone Esther Verma Primary Care Provider [phone] Reason for Visit * Reason Onset Date Comments Medication Management 07/27/2022 Encounter Details Date Type Department Care Team (Late st Contact Info) Description 07/27/2022 Telephone [facility] Pulmonology & [place] [address] Maribel Whitaker, candy waffle assembler Management Social History Tobacco Use Types Packs/Day Years [...] encounter Miscellaneous Notes * Telephone Encounter - Maribel Whitaker, RN - 07/27/2022 1224 EST Called [facility] as PCP Esther Verma BLUE CRABBER manages Eliquis. Confirmed it was ok to hold Eliquis 48 hours prior to procedure of bronchoscopy. Called patient to update. Informed her last dose of Eliquis should be Tuesday07/31/22. documented in this encounter Plan of Treatment Upcoming Encounters Date Type Department Care Team (Late st Contact Info) Description 06/08/2024 13:30 EST Appointment [facility] Radiology CT Outpatient - [address] [id number] 06/08/2024 14:30 EST Office Visit [facility] Radiation Oncology - [address] [phone] Pj Bourne MD [address] [place] [address], [address] [place] [phone] documented as of this encounter Visit Diagnoses Not on filedocumented in this encounter Care Teams Power Reactor Operator Relationship Specialty Start Date End Date Esther Verma FNP [address] [facility] [address] [place] [address] PCP - General 07/27/22 documented as of this encounter
--- OUTSIDE RECORDS SUMMARY | 2024-02-15 14:59 | XMS_ITS | Encounter Summary ---
Author Organization [facility] Address [address] [place] [address] Care Team Providers Care Chimney Builder Name Role Phone Esther Verma EDWARD Primary Care Provider Reason for Visit * Reason Onset Date Comments Appointment Related 07/29/2022 Encounter Details Date Type Department Care Team (Late st Contact Info) Description 07/29/2022 Telephone [facility] Pulmonology & Critical Care - [address] [phone] Price Delong MD MPH [address] [facility], [address] [place] [address] Appointment Related Social History Tobacco Use Types [...] encounter Miscellaneous Notes * Telephone Encounter - Curtis Ellison Jr - 07/29/2022 1403 EST Patient answered phone call where I went over the below instructions and gave them the arrival/start times. Patient had questions about medicines so I messaged Maribel Bronchoscopy Patient Instructions After careful medical assessment, your doctor has recommended that you have a bronchoscopy for further evaluation and treatment. During bronchoscopy, a flexible fiber-optic tube the diameter of a pencil is passed through the nose or mouth and windpipe into the lungs. The purpose of this procedure is to examine air passages to identify any problems, and obtain tissue and fluid samples. Prior to the procedure, you will be asked to remove any eyeglasses and dentures. You may prefer to remove contact lenses at this time. You will be asked to sign a consent form authorizing the doctor to perform the procedure. Please let the doctor and nurse or respiratory therapist know if you are allergic to any medications. A needle for intravenous (IV) medication will be placed in your arm vein prior to the procedure. Medicine may be injected through this needle to make you sleepy and relaxed. The doctor, nurse or respiratory therapist will also numb your nasal passages and throat with a numbing medicine to aid in passage of the scope. Oxygen will be given to you by nasal prongs or mask and your blood pressure, respiration and heart rate will be monitored during the procedure. The doctor may choose to use fluoroscopy during the procedure. The room will be darkened and the X-ray equipment turned on for short periods of time. Please inform the doctor, nurse or respiratory therapist if there is a chance you may b e . The bronchoscope will be passed through your nostril or mouth. You may experience some coughing. The doctor will continue to numb the air passage during the procedure to reduce your cough reflex. Thedoctor may take samples of tissues or fluid through the bronchoscope using tiny instruments. Most people do not feel any discomfort or sensation when samples are taken. After the procedure, the doctor will discuss the findings with you and your family. You will receive written instructions to follow when you go home. IMPORTANT PROCEDURE PROTOCOLS - It is important that you have NOTHING TO EAT AFTER MIDNIGHT the night before the procedure. On the day of your procedure, you should have only water or other clear liquids until 4 hours before the scheduled time of your procedure. Clear liquids include water, clear fruit juice, carbonated beverages, and black or sweetened coffee and tea (No Milk). You should take your usual medicines by mouth with a small amount of water. - You will NEED TO BRING A PRIVATE SECTOR EXECUTIVE. Please make sure you have someone accompany you who will be ableto drive you home after the procedure. You will be unable to safely drive for 24 hours from the time of the procedure. - If you are taking Aspirin there is no need to stop taking it prior to the procedure. - If you are taking any BLOOD THINNERS (Plavix, Coumadin, Warfarin, etc.) please speak with your commercial marketing specialist about this. Your appointment date: 08.03.2022 and time: 1:20PM with an arrival time of 11:20AM. Please check in at Registration on the 3rd floor of the [facility] building. You will then proceed to Surgery and Procedures located on the 3rd floor [facility] Please call the PFT Lab at [phone] or the Pulmonary department at [phone] if you have any concerns, questions or need clarification about any of the above instructions. Thank you. documented in this encounter Plan of Treatment Upcoming Encounters Date Type Department Care Team (Late st Contact Info) Description 06/08/2024 13:30 EST Appointment [facility] Radiology CT Outpatient - [address] [phone] 06/08/2024 14:30 EST Office Visit [facility] Radiation Oncology - [address] [phone] Pj Bourne MD [address] [place] [address], [address] [place] [phone] documented as of this encounter Visit Diagnoses Not on filedocumented in this encounter Care Teams Chimney Builder Relationship Specialty Start Date End Date Esther Verma FNP [address] [place] [address] [address] [place] [phone] PCP - General 07/27/22 documented as of this encounter
--- OUTSIDE RECORDS SUMMARY | 2024-02-15 14:59 | XMS_ITS | Encounter Summary ---
Author Organization [facility] Address [address] [place] [address] Care Team Providers Care Detail Manager Name Role Phone Esther Verma EDWARD Primary Care Provider [phone] Reason for Referral * Consult (Routine/Next Available) - New Request Specialty Diagnoses / Procedures [facility] Referred To Contact Hematology and Oncology Diagnoses Malignant neoplasm of upper lobe of right lung (HCC-CMS) Karime Vo, ICT TRAINER [address] [place] [address], [address] [place] [address] Referral ID Status Reason Start Date Expiration Date Visits Requested Visits Authorized [id number] New Request Specialty Services Required 09/01/2022 1 1 Question Answer Location [facility] Tumor Board Lung Working Stage stage 1 Additional Providers Yes List additional providers Rads, path, XRT Clinical Question? Yes Specify clinical question treatment options Radiology Review Review Recent Radiology Are there studies that were perfomed outside of [facility] (even if performed at another network location) that need to be reviewed? Yes Do the studies have final reports? Yes Order appropriate secondary read from the list below. Acknowledge Question to be answered: Other Other reason: please review OSH CT and PET thank you Pathology Review Review Recent Pathology Please indicate which slides are to be reviewed and add the pathology question perc biopsy on 08/23 Trial Options No Date to be Presented 09/06 Reason for Visit * Reason Comments Follow-up Encounter Details Date Type Department Care Team ([facility] st Contact Info) Description 09/01/2022 10:30 EST Telemedicine [facility] Pulmonology & Critical [address] [address] Karime Vo NP 111 [facility], [address] [place] [address] Malignant neoplasm of upper lobe of right lung (HCC-CMS) (Primary Dx) Social History Tobacco [...] as of this encounter Progress Notes * Aishwarya Preston MA - 09/01/2022 1030 EST TELEMEDICINE VIDEO VISIT Today's visit was provided through telemedicine video conferencing: I have reviewed the appropriateness of using video technology with the patient with regards to today's visit. The location of the patient : Home Patient location state: Visit Location State: [place] The location of the provider: Office Provider location state: Visit Location State: [place] The following people and their roles were present for today's visit: Appointment Provider: Karime Vo, SUMEET PRESTON MA The concept of ???Telemedicine?? has been described to the patient.? Patient has been informed of the anticipated benefits and possible risks.? Patient understands the information provided regardingtelemedicine, has had the opportunity to ask questions about this information, and all questions have been answered to patient???s satisfaction. Patient consents for the use of telemedicine in his/her medical care and authorizes the transmission of any relevant medical information to providers and their staff involved in patient???s medical or mental health care. Patient understands that they maybe responsible for copays, deductible or coinsurance for this service. * Karime Vo NP - 09/01/2022 1030 EST Images from the original note were not included. INTERVENTIONAL PULMONARY FOLLOW UP NOTE Date: 09/02/22 Reason for Consult: lung nodule biopsy results The concept of ???Telemedicine?? has been described to the patient.? Patient has been informed of the anticipated benefits and possible risks.? Patient understands the information provided regardingtelemedicine, has had the opportunity to ask questions about this information, and all questions have been answered to patient???s satisfaction. Patient consents for the use of telemedicine in his/her medical care and authorizes the transmission of any relevant medical information to providers and their staff involved in patient???s medical or mental health care. Subjective: Ms. Davis is a 71 y.o. female with a past medical history of atrial fibrillation and chf EF > 50% who was seen by Dr. Delong in Jul for evaluation of a right upper lobe nodule. The nodule was first noted when she presented to [facility] with atrial fibrillation and increasing pulmonary edema in June. This episode rapidly resolved with better heart rate control. The CT also noted enlarged mediastinal lymph nodes. She was seen by Dr. Glover at [facility] and subsequently underwent a PET-CT demonstrating uptake within the nodule. She was originally set up to have a bronchoscopy with the interventional pulmonary team but after discussion between Dr. Delong and her underwriting clerk noting that on her last ECHO her PA pressure was quite high, we felt her risk of general anesthesia was too high andshe underwent a percutaneous biopsy on 08/23/22 with IR. We spoke on the phone to discuss the results. She reports tolerating the procedure well without any complications. The LE edema has been well controlled. [...] by mouth daily., Disp: , Rfl: ??? dilTIAZem (TIAZAC) 120 mg SR capsule, Take by mouth daily., Disp: , Rfl: ??? ELIQUIS 5 mg [...] skin. 23 mg, Disp: , Rfl: ??? liraglutide (VICTOZA) 0.6 mg/0.1 mL (18 mg/3 mL) injectable pen, Inject 1.2 mg into the skin daily., Disp: , Rfl: ??? lisinopriL (PRINIVIL) 5 [...] 5 minutes as needed for Chest Pain. (Patient not taking: No sig reported), Disp: , Rfl: ??? tiotropium bromide (SPIRIVA RESPIMAT INHALATION), Inhale 2 Puffs as directed daily., Disp: , Rfl: ??? VITAMIN B COMPLEX ORAL, Take by mouth., Disp: , Rfl: Allergies: is allergic to erythromycin, gabapentin, other - see comments, plavix [clopidogrel], sudafed [pseudoephedrine hcl], and sulfa (sulfonamide antibiotics). PMHx: has a past medical history of Arrhythmia (A-Fib), CAD (coronary artery disease), CHF (congestive heart failure) (HCC-CMS) (HCC), Chronic kidney disease, COPD (chronic obstructive pulmonary disease) (HCC-CMS) (HCC), Diabetes mellitus (HCC) (Type 2), Hypertension, and JESICA (obstructive sleep apnea). PSHx: has a past surgical history that includes Cardiac catheterization; Coronary angioplasty; and tumor removal. Family Hx: family history is not on file. Mother - No clear family history of lung cancer. Her mother from a procedural complication at [facility]. She believes it was a percutaneous biopsy. Social Hx: Social History Tobacco Use ??? Smoking status: Former Types: Cigarettes Quit date: 07/28/2009 Years since quittin.1 ??? Smokeless tobacco: Never Vaping Use ??? Vaping Use: Never used Substance Use Topics ??? Alcohol use: Not Currently ??? Drug use: Never Lives at home with: Occupation: Previously worked at [email or web address]. 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 No asbestos. Tobacco: Prev Exam: There were no vitals taken for this visit. Imaging: CT Chest and PET-CT independently personally reviewed, findings as noted above PET shows 22 mm PET avid pleural-based nodule in the RUL. No PET avid adenopathy. Pathology: A. LUNG, RIGHT UPPER LOBE, 2.0 CM MASS, CT-GUIDED FINE NEEDLE ASPIRATION: - Positive for malignant cells. - Non-small cell carcinoma, favor adenocarcinoma. See comment. Diagnosis Comment The aspirate smears are moderately cellular and show loosely cohesive groups of malignant cells characterized by irregular nuclei and moderately abundant amphophilic cytoplasm. A cell block was prepared to increase cellular yield and shows rare tumor cell groups. Assessment: Ms. Davis is a 71-year-old woman with history of tobacco use who has right upper lobe nodule. This nodule is just over the 2 cm diameter criteria for mediastinal staging based on guidelines. Additionally there are enlarged lymphadenopathy on the CT scan, although these were not PET avid. 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 But given her elevated PA pressures we did not feel she should have a procedure with general anesthesia and an IR biopsy was performed last week confirming the presence of lung ca. The results were explained to the patient and her friend Chayito. I will discuss her case at the [facility] next week and have her see a treatment team with the understanding that she will likely get her care at the [facility] closer to her home. Francisco Thibodeaux, RN is aware of her case. Plan: [facility] Thanks for asking us to see this patient today Karime Vo NP Interventional Pulmonary [facility] Patient was discussed with Dr. Nilton Delong 28 minutes was spent on the day of the visit in evaluation and coordination of care documented in this encounter Plan of Treatment Upcoming Encounters Date Type Department Care Team (Late st Contact Info) Description 06/08/2024 13:30 EST Appointment [facility] Radiology CT Outpatient - [address] [phone] 06/08/2024 14:30 EST Office Visit [facility] Radiation Oncology - [address] [phone] Pj Bourne MD [address] [place] [address], [address] [place] [address] Scheduled Referrals Name Type Priority Associated Diagnoses Orde r Schedule AMB CONSULT/FOLLOW UP TUMOR BOARD Outpatient Referral Routine Malignant neoplasm of upper lobe of right lung (HCC-CMS) Ordered: 09/01/2022 documented as of this encounter Visit Diagnoses Diagnosis Malignant neoplasm of upper lobe of right lung (HCC-CMS)- Primary Malignant neoplasm of upper lobe, bronchus or lung documented in this encounter Care Teams Detail Manager Relationship Specialty Start Date End Date Esther Verma FNP [address] [place] [address] [address] [place] [address] PCP - General 07/27/22 documented as of this encounter
--- OUTSIDE RECORDS SUMMARY | 2024-02-15 14:59 | XMS_ITS | Encounter Summary ---
Author Organization [facility] Address [address] [place] [address] Care Team Providers Care Computer Typesetter Name Role Phone BayronEsther EDWARD Primary Care Provider [phone] Pj Bourne MD Unavailable [phone] Reason for Referral * (Routine/Next Available) - New Request Specialty Diagnoses / Procedures Referred By Chau car Referred To Contact Diagnoses Malignant neoplasm of upper lobe, right bronchus or lung (HCC-CMS) Procedures CT SIM EXAM Pj Bourne MD [address] [place] [phone] [facility] Referral ID Status Reason Start Date Expiration Date V isits Requested Visits Authorized [id number] New Request 10/18/2022 1 1 Reason for Visit * (Routine/Next Available) - New Request Specialty Diagnoses / Procedures Referred By Chau car Referred To Contact Diagnoses Malignant neoplasm of upper lobe, right bronchus or lung (HCC-CMS) Procedures CT SIM EXAM Pj Bourne MD [address] [place] [phone] [facility] Referral ID Status Reason Start Date Expiration Date V isits Requested Visits Authorized [id number] New Request 10/18/2022 1 1 Encounter Details Date Type Department Care Team (Latest Contact Info) Description 10/22/2022 7:28 EDT Hospital Encounter [facility] Radiation Oncology - Main [address] [address] Malignant neoplasm of upper lobe, right bronchus [...] Contact Info) Description 06/08/2024 13:30 EST Appointment [facility] Radiology CT Outpatient - [address] [id number] 06/08/2024 14:30 EST [facility] Radiation Oncology - [address] [phone] Pj Bourne MD [address] [place] [address] [address] [place] [phone] documented as of this encounter Procedures Procedure Name Priority Date/Time Associated Diagnosis Comments CT SIM EXAM Routine 10/22/2022 8:30 EDT Malignant neoplasm of upper lobe, right bronchus or lung (HCC-CMS) documented in this encounter Results * CT SIM EXAM (10/22/2022 8:30 EDT) Narrative 10/22/2022 8:30 EDT This is a non-reportable exam. Pj Bourne MD IMG OTHER IMAGING OR DERABLES documented in this encounter Visit Diagnoses Diagnosis Malignant neoplasm of upper lobe, right bronchus or lung (HCC-CMS) documented in this encounter Care Teams Computer Typesetter Relationship Specialty Start Date End Date Esther Verma FNP 26 [facility] [address] [place] [address] PCP - General 07/27/22 Pj Bourne MD [address] [place] [address] [address] [place] [phone] Radiation Oncology 10/21/22 documented as of this encounter
--- OUTSIDE RECORDS SUMMARY | 2024-02-15 14:59 | XMS_ITS | Encounter Summary ---
Author Organization [facility] Address [address] [place] [address] Care Team Providers Care Banking Center Manager Name Role Phone Erinn Vermay EDWARD Primary Care Provider [phone] Pj Bourne MD Unavailable [phone] Reason for Visit * Reason Comments Lung Cancer Encounter Details Date Type Department Care Team (Late st Contact Info) Description 10/22/2022 Radiation Therapy Visit [facility] Radiation Oncology - Main [place] [address] [place] [address] Melissa Herrera RN [address] [place] [address] Malignant neoplasm of upper lobe, right bronchus or lung (HCC-CMS) (Primary Dx) Social History Tobacco [...] of this encounter Progress Notes * Melissa Herrera RN - 10/22/2022 1281 EDT Treatment Information Plan for Treatment: definitive SABR radiation therapy to the RUL of lung, NSCLC, Stage IA2, (cT1b, cN0, cM0) Start Date/Time: 11/08/22 Radiation Plan: Rx: RUL: SABR: 5 x 1100 cGy = 5500 cGy Chemotherapy Plan: none Transport Plan: self/friends Education Session Established contact and assessed patient readiness to learn: Yes Reviewed treatment plan, goals and possible acute side effects:Yes Reviewed site specific skin care, anticipated acute side effects and care management of the acute side effects:Yes Physician specific care management reviewed:Yes Learning objective met and will reinforce as needed:Yes Comments: Written patient and family education material provided: Yes Patient Information Alerts reviewed: Yes Allergies reviewed: Yes Cardiac pacemaker: No Implantable defibrillator: No Medication reconciliation completed: No Patient Intake form reviewed: Yes Pharmacy confirmed: Yes Smoking Information Current smoker: No If yes, was smoking cessation discussed? Was patient referral initiated? Past smoker: Yes Comments: 10 pack year hx, quit 1984 Referrals vineyard worker: Yes (SHOBHA Marin will contact patient for Distress Tool and to assess needs) Services: Hope Avenel: Other: PATIENT EDUCATION TOPIC: RADIATION THERAPY TAUGHT: patient and her friend, Yamila METHOD: written and verbal BARRIERS: none OUTCOME: good understanding of material presented I met with Edwige and her friend, Yamila, for an education session after her CT simulation for radiation mapping. Edwige reports that she was able to tolerate the positioning for treatment without difficulty. Edwige is a 71 yo female who lives alone in [facility]. She presented in Jun 2022 with Afib, a work-up revealed a right upper lobe lung nodule and was evaluated by Dr Delong, she was also evaluatedby cardiothoracic surg who deemed her not a surgical candidate. Edwige denies chest pain. She speaks in full sentences and is not SOB, she reports ALBARADO with minimal exertion. She has a mild cough withyellow sputum. She denies any hemoptysis. Edwige has a good appetite and eats a regular diet. She states she does not sleep well due to peripheral neuropathy in her feet. She is coping well andfeels well supported. documented in this encounter Plan of Treatment Upcoming Encounters Date Type Department Care Team (Late st Contact Info) Description 06/08/2024 13:30 EST Appointment [facility] Radiology CT Outpatient - [address] [phone] 06/08/2024 14:30 EST Office Visit [facility] Radiation Oncology - [address] [phone] Pj Bourne MD [address] [place] [phone] documented as of this encounter Visit Diagnoses Diagnosis Malignant neoplasm of upper lobe, right bronchus or lung (HCC-CMS)- Primary documented in this encounter Care Teams Banking Center Manager Relationship Specialty Start Date End Date Esther Verma FNP [address] [place] [phone] PCP - General 07/27/22 Pj Bourne MD [address] [place] [phone] Radiation Oncology 10/21/22 documented as of this encounter
--- OUTSIDE RECORDS SUMMARY | 2024-02-15 14:59 | XMS_ITS | Encounter Summary ---
Author Organization [facility] Address [address] [place] [address] Care Team Providers Care Geographic Information Scientist Name Role Phone Esther Verma EDWARD Primary Care Provider [phone] Reason for Visit * Reason Onset Date Comments Follow-up 08/03/2022 Encounter Details Date Type Department Care Team (Late st Contact Info) Description 08/03/2022 Telephone [facility] Pulmonology & [place] [address] Maribel Whitaker, MERARI Follow-up Social History Tobacco Use Types Packs/Day [...] Miscellaneous Notes * Telephone Encounter - Maribel Whitaker RN - 08/03/2022 0820 EST Called patient and confirmed she had restarted Eliquis per pre scriber instructions. She had restarted yesterday with her evening dose. Informed her IR will reach out to schedule perc biopsy and review instructions with her. She verbalized understanding. documented in this encounter Plan of Treatment Upcoming Encounters Date Type Department Care Team (Late st Contact Info) Description 06/08/2024 13:30 EST Appointment [facility] Radiology CT Outpatient - [address] [phone] 06/08/2024 14:30 EST Office Visit [facility] Radiation Oncology - [address] [phone] Pj Bourne MD 111 [facility], [address] [place] [address] documented as of this encounter Visit Diagnoses Not on filedocumented in this encounter Care Teams Geographic Information Scientist Relationship Specialty Start Date End Date Esther Verma FNP [address] [place] [address] [address] [place] [address] PCP - General 07/27/22 documented as of this encounter
--- OUTSIDE RECORDS SUMMARY | 2024-02-15 14:59 | XMS_ITS | Encounter Summary ---
Author Organization [facility] Address [address] [place] [address] Care Team Providers Care Beef Trimmer Name Role Phone Unknown, Provider Primary Care Provider [phone] Esther Verma Primary Care Provider [phone] Pj Bourne MD Unavailable [phone] Reason for Visit * Reason Onset Date Comments Provider Referred 07/23/2022 Returning Call 07/23/2022 Encounter Details Date Type Department Care Team (Late st Contact Info) Description 07/23/2022 Telephone [facility] Pulmonology & Critical Care - [address] [phone] Maribel Whitaker, RN Provider Referred; Returning Call Social History Tobacco Use Types Packs/Day Years [...] Telephone Encounter - Maribel Whitaker, RN - 07/23/2022 1256 EST Called patient and she verbalized understanding of referral and need for biopsy. She is able to come on Wednesday 07/26 at [address] Delong. Reviewed what NPV would entail and provideddirections to clinic. * Telephone Encounter - Debbie Xiong - 07/23/2022 1249 EST The patient returned a call to the nurse * Telephone Encounter - Maribel Whitaker RN - 07/23/2022 1241 EST LMOM informing patient referral received from Dr. Marr. Dr. Delong does have an opening this Wednesday 07/26 at 1530. Requested she call back to discuss. documented in this encounter Plan of Treatment Upcoming Encounters Date Type Department Care Team (Late st Contact Info) Description 06/08/2024 13:30 EST Appointment [facility] Radiology CT Outpatient - [address] [phone] 06/08/2024 14:30 EST Office Visit [facility] Radiation Oncology - [facility] [address] [place], [place] [address] Pj Bourne MD [address] [place] [address], [address] [place] [phone] documented as of this encounter Visit Diagnoses Not on filedocumented in this encounter Care Teams Beef Trimmer Relationship Specialty Start Date End Date Unknown, Provider, PCP - General 10/01/09 07/26/22 Esther Verma FNP [address] [place] [phone] PCP - General 07/27/22 Pj Bourne MD [address] [place] [address], [facility] [address] [place] [phone] Radiation Oncology 10/21/22 documented as of this encounter
--- OUTSIDE RECORDS SUMMARY | 2024-02-15 14:59 | XMS_ITS | Encounter Summary ---
Author Organization [facility] Address [address] [place] [address] Care Team Providers Care Green Hide Inspector Name Role Phone Esther Verma EDWARD Primary Care Provider [phone] Reason for Visit * Reason Comments Tumor Board * Consult (Routine/Next Available) - New Request Specialty Diagnoses / Procedures Referred By Chau car Referred To Contact Hematology and Oncology Diagnoses Malignant neoplasm of upper lobe of right lung (HCC-CMS) Karime Vo, SENIOR TABLEAU DEVELOPER [address] [facility] 5 [place] [address] Referral ID Status Reason Start Date Expiration Date Visits Requested Visits Authorized [id number] New Request Specialty Services Required 09/01/2022 1 1 Encounter Details Date Type Department Care Team (Late st Contact Info) Description 09/13/2022 13:30 EST Tumor Board [facility] Hematology & Oncology - [address] [address] Primary cancer of right upper lobe of [...] as of this encounter Progress Notes * Francisco Thibodeaux, RN - 09/13/2022 1330 EST Transdisciplinary team presenting case: Lung Date of Presentation: 09/13/2022 Patient Name: Edwige Davis Diagnosis: 1. 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-CMS) (HCC) AJCC Stage: TBD Clinical Question: Treatment options Radiology Question:Please review osh ct and pet thank you Pathology Question: Perc biopsy on 08/23 Prospective Presentation? Prospective Presentation: Yes Clinical Trial Option Discussed? Clinical Trials: Yes Treatment Guidelines Discussed? Yes Attending Services: Medical Oncology, Radiation, Surgery, Pathology, Radiology and Pulmonology. Tumor Board Review and Discussion: Radiology: Radiology review notes: consistent with reports Note: this interpretation is subject to the limitations of the tumor board setting and is simply advisory in nature. Pathology: Pathology review notes: Consistent with reports Note: this interpretation is subject to the limitations of the tumor board setting and is simply advisory in nature. Advisory Recommendations: Radiation oncology consult. These advisory recommendations are based on the limited information available and presented during the tumor board. This advice does not supersede or substitute for the treating physicians??? physical assessment findings and clinical judgement. I was present at the Tumor Board conference when this patient was discussed. I have reviewed and edited the Tumor Board note as needed to reflect the general discussion of our multidisciplinary conference members. documented in this encounter Plan of Treatment Upcoming Encounters Date Type Department Care Team (Late st Contact Info) Description 06/08/2024 13:30 EST Appointment [facility] Radiology CT Outpatient - [address] [address] 06/08/2024 14:30 EST Office Visit [facility] [place] [address] Pj Bourne MD 111 [facility], [facility], Level 2 [place] [phone] Scheduled Referrals Name Type Priority Associated Diagnoses Orde r Schedule AMB CONSULT/FOLLOW UP TUMOR BOARD Outpatient Referral Routine Malignant neoplasm of upper lobe of right lung (HCC-CMS) Ordered: 09/01/2022 documented as of this encounter Visit Diagnoses Diagnosis 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-CMS)- Primary documented in this encounter Care Teams Green Hide Inspector Relationship Specialty Start Date End Date Esther Verma FNP 26 [facility] [address] [place] [phone] PCP - General 07/27/22 documented as of this encounter
--- OUTSIDE RECORDS SUMMARY | 2024-02-15 14:59 | XMS_ITS | Encounter Summary ---
Author Organization [facility] Address [address] [place] [address] Care Team Providers Care Farm Truck Driver Name Role Phone Esther Verma Primary Care Provider [phone] Pj Bourne MD Unavailable [phone] Encounter Details Date Type Department Care Team (Latest Contact Info) Description 11/08/2022 9:38 EDT - 11/08/2022 23:59 EDT Hospital Encounter [facility] Radiation Oncology - [address] [address] [facility] Discharge Disposition: Home or Self [...] Contact Info) Description 06/08/2024 13:30 EST Appointment [facility] Radiology CT Outpatient - [address] [address] 06/08/2024 14:30 EST Office Visit [facility] Cancer Center Radiation Oncology - [address] [phone] Pj Bourne MD [address] [place] [phone] documented as of this encounter Visit Diagnoses Not on filedocumented in this encounter Care Teams Farm Truck Driver Relationship Specialty Start Date End Date Esther Verma FNP [address] [place] [phone] PCP - General 07/27/22 Pj Borune MD [address] [place] [phone] Radiation Oncology 10/21/22 documented as of this encounter
--- OUTSIDE RECORDS SUMMARY | 2024-02-15 14:59 | XMS_ITS | Encounter Summary ---
Author Organization [facility] Address [address] [place] [address] Care Team Providers Care Crown Ironer Operator Name Role Phone Esther Verma EDWARD Primary Care Provider [phone] Reason for Visit * Reason Onset Date Comments Follow-up 07/28/2022 Encounter Details Date Type Department Care Team (Late st Contact Info) Description 07/28/2022 Telephone [facility] Pulmonology & [place] [address] Maribel Whitaker, RN Follow-up Social History Tobacco Use Types Packs/Day [...] Telephone Encounter - Maribel Whitaker, RN - 07/28/2022 1619 EST LMOM at cardiology at [facility] asking for most recent TTE report be faxed to pulmonary clinic. documented in this encounter Plan of Treatment Upcoming Encounters Date Type Department Care Team (Late st Contact Info) Description 06/08/2024 13:30 EST Appointment [facility] Radiology CT Outpatient - [address] [address] 06/08/2024 14:30 EST Office Visit [facility] Radiation Oncology - [address] [phone] Pj Bourne MD 111 [facility], [facility], Level [address] [place] [phone] documented as of this encounter Visit Diagnoses Not on filedocumented in this encounter Care Teams Crown Ironer Operator Relationship Specialty Start Date End Date Esther Verma FNP 26 [facility] [address] [place] [phone] PCP - General 07/27/22 documented as of this encounter
--- OUTSIDE RECORDS SUMMARY | 2024-02-15 14:59 | XMS_ITS | Encounter Summary ---
Author Organization [facility] Address [address] [place] [address] Care Team Providers Care Tooling Inspector Name Role Phone Bayron Esther EDWARD Primary Care Provider [phone] Pj Bourne MD Unavailable [phone] Encounter Details Date Type Department Care Team (Late st Contact Info) Description 11/13/2022 Radiation Therapy Visit [facility] Radiation Oncology - [address] [address] Pj Bourne MD [address] [place] [address], Level [address] [place] [phone] Primary cancer of right upper [...] Progress Notes * Pj Bourne MD - 11/13/2022 1331 EDT DIVISION OF RADIATION ONCOLOGY- SABR ON TREATMENT VISIT NOTE Diagnosis: Cancer Staging 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-CMS) Staging form: Lung, AJCC 8th Edition - Clinical: Stage IA2 (cT1b, cN0, cM0) - Signed by Pj Bourne MD on 09/13/2022 Date: 11/12/2022 Preparation for SBRT Treatment Treatment planning was performed in advance of this SBRT treatment delivery. Prior to this treatment, the physicist analyzed the set-up for potential collisions of the apparatus with the patient, treatment couch, or other devices and the appropriate modifications were made. QA was performed by physics staff. Pre-Treatment Assessment The dose to date is 3300 cGy. The planned total dose is 5500 [...] in 6 months with follow up visit. Signed By: Pj Bourne MD documented in this encounter Plan of Treatment Upcoming Encounters Date Type Department Care Team (Late st Contact Info) Description 06/08/2024 13:30 EST Appointment [facility] Radiology CT Outpatient - [address] [phone] 06/08/2024 14:30 EST Office Visit [facility] Radiation Oncology - [address] [phone] Pj Bourne MD [address] [place] [phone] documented as of this encounter Visit Diagnoses Diagnosis 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-CMS)- Primary documented in this encounter Care Teams Tooling Inspector Relationship Specialty Start Date End Date Esther Verma FNP [address] [place] [phone] PCP - General 07/27/22 Pj Bourne MD [address] [place] [phone] Radiation Oncology 10/21/22 documented as of this encounter
--- OUTSIDE RECORDS SUMMARY | 2024-02-15 14:59 | XMS_ITS | Encounter Summary ---
Author Organization [facility] Address [address] [place] [address] Care Team Providers Care Buffing Wheel Former Automatic Name Role Phone Esther Verma Primary Care Provider [phone] Pj Bourne MD Unavailable [phone] Encounter Details Date Type Department Care Team (Latest Contact Info) Description 11/12/2022 10:03 EDT - 11/12/2022 23:59 EDT Hospital Encounter [facility] Radiation Oncology - [address] [address] [facility], [place] Discharge Disposition: Home or Self [...] Description 06/08/2024 13:30 EST Appointment [facility] Rad[facility] CT Outpatient - [address] [address] 06/08/2024 14:30 EST Office Visit [facility] Center Radiation Oncology - [address] [address] Pj Bourne MD [address] [place] [phone] documented as of this encounter Visit Diagnoses Not on filedocumented in this encounter Care Teams Buffing Wheel Former Automatic Relationship Specialty Start Date End Date Esther Verma FNP [address] [place] [phone] PCP - General 07/27/22 Pj Bourne MD [address] [place] [phone] Radiation Oncology 10/21/22 documented as of this encounter
--- OUTSIDE RECORDS SUMMARY | 2024-02-15 14:59 | XMS_ITS | Encounter Summary ---
Author Organization [facility] Address [address] [place] [address] Care Team Providers Care Dealer Analyst Name Role Phone Unknown, Provider Primary Care Provider [phone] Encounter Details Date Type Department Care Team (Late st Contact Info) Description 07/26/2022 Prep for Procedure [facility] Pulmonology & Critical Care - [address] [address] Karime Vo, MILLER HELPER DISTILLERY [address] [place] [address], [address] 5 [place] [phone] Lung nodule (Primary Dx) Social History Tobacco Use Types [...] Appointment [facility] Radiology CT Outpatient - [address] [address] 06/08/2024 14:30 EST Office Visit [facility] Radiation Oncology - [address] [address] Pj Bourne MD [address] [place] [address], [facility], Level 2 [place] [phone] documented as of this encounter Visit Diagnoses Diagnosis Lung nodule- Primary Solitary pulmonary nodule documented in this encounter Care Teams Dealer Analyst Relationship Specialty Start Date End Date Unknown, Provider, PCP - General 10/01/09 07/26/22 documented as of this encounter
--- OUTSIDE RECORDS SUMMARY | 2024-02-15 14:59 | XMS_ITS | Encounter Summary ---
Author Organization [facility] Address [address] [place] [address] Care Team Providers Care Miniature Model Maker Name Role Phone Unknown, Provider Primary Care Provider [phone] Reason for Visit * Reason Comments New Patient Visit * Consult (Routine) - Authorization Not Required Specialty Diagnoses / Procedures Referred By Contdakotah t Referred To Contact Diagnoses Pulmonary nodule Maribel Dacosta MD [address] [place] [address] [address] [place] [address] [place] [address] [address] [place] [address] Referral ID Status Reason Start Date Expiration Date Visits Requested Visits Authorized [id number] Authorization Not Required 1 1 Encounter Details Date Type Department Care Team (Late st Contact Info) Description 07/26/2022 12:00 EST Office Visit [facility] Pulmonology & Critical Care - [address] [phone] Price Delong MD MPH [facility], [address] [place] [phone] Lung nodule (Primary Dx); Neoplasm of unspecified behavior of unspecified site Social History Tobacco Use Types Packs/Day Years Used Date Smoking Tobacco: Former Cigarettes Q uit: 07/28/2009 Smokeless Tobacco: Never Tobacco Cessation:Counseling Given: Not Answered Interpersonal Safety Answer Date Record ed Physically Hurt Never 02/17/2020 Verbally Threaten Not on file 02/17/2020 Sex and Gender Information Value Date Recorded Sex Assigned at Not on file Gender Identity Not on file Sexual Orientation Not on file documented as of this encounter Last Filed Vital Signs Vital Sign Reading Time Taken Comments Blood Pressure 150/90 07/26/2022 1146 EST Pulse 57 07/26/2022 1146 EST Temperature 35.8 ??C (96.5 ??F) 07/26/2022 1146 EST Respiratory Rate - - Oxygen Saturation 95% 07/26/2022 1146 EST Inhaled Oxygen Concentration - - Weight 89.4 kg (197 lb) 07/26/2022 1146 EST Height 162.6 cm (5' 4) 07/26/2022 1146 EST Body Mass Index 33.81 07/26/2022 1146 EST documented in this encounter Functional Status [...] this encounter Patient Instructions * Patient Instructions* Maribel Whitaker RN - 07/26/2022 12:00 EST We will call you with a procedure time or Tuesday. Your procedure will be 08/03/22. Call with questions [phone] ask for Maribel documented in this encounter Progress Notes * Aishwarya Preston MA - 07/26/2022 1200 EST Pt couldn't find her med list, so she will give us a call later when she is able to find it to update the rest of her meds. There are a couple that aren't on the list that she can't remember * Price Delong MD MPH - 07/26/2022 1200 EST INTERVENTIONAL PULMONARY OFFICE NOTE Date: 07/26/2022 Reason for Consult: Subjective: Ms. Davis is a 71 y.o. female with a past medical history of atrial fibrillation and chf (unknown EF) who presents today for evaluation of a right upper lobe nodule. The nodule was first noted when she presented to [facility] with atrial fibrillation and increasing pulmonary edema in June. This episode rapidly resolved with better heart rate control. The CT also noted enlarged mediastinal lymph nodes. She was seen by Dr. Glover at [facility] and subsequently underwent a PET-CT demonstrating uptake [...] Her mother from a procedural complication at [facility]. She believes it was a percutaneous biopsy. Social Hx: Social History Tobacco Use ??? Smoking status: Former Types: Cigarettes Quit date: 07/28/2009 Years since quittin.0 ??? Smokeless tobacco: Never Lives at home with: Occupation: Previously worked at [employer]. 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 No asbestos. Tobacco: [...] visit in evaluation and coordination of care * Maribel Whitaker RN - 07/26/2022 1200 EST Name: Edwige Davis Date of : 1950 Date: 07/26/2022 Pulmonary Function Lab 6 MINUTE WALK TEST Indication/Diagnosis: Lung nodule Pre/Resting B/P: 150/90 Pre/Resting HR: 57 Pre/Resting O2 Sat: 95 % Pre/Resting NICOLE: 2 Oxygen Used?: No Oxygen liter/min: RA Post/Recovery B/P: 160/82 Post/Recovery HR: 117 Post/Recovery O2 Sat: 94 % Post/Recovery: 2 Maximal NICOLE: 4 Post Oxygen liter/min: RA Walked without assistance. Standard finger probe used. TIME HR Sat 02 liter/min COMMENTS 30 sec 60 94 0 LPM 1 min 103 94 0 LPM 1 min/30 sec 91 93 0 LPM 2 min 82 91 0 LPM 2 min/30 sec 96 93 0 LPM 3 min 80 93 0 LPM 3 min/30 sec 95 91 0 LPM 4 min 103 90 0 LPM 4 min/30 sec 129 92 0 LPM 5 min 131 92 0 LPM 5 min/30 sec 124 92 0 LPM 6 min 131 93 0 LPM Distance walked: 480 feet. Test performed by: MARIBEL WHITAKER RN Date: 07/26/2022 Time: 14:00 Pager/Contact No.: [phone] Provider Interpretation: Normal oxygen saturation on room air at rest. No significant desaturation with exercise. Authenticating provider: Price Delong MD MPH documented in this encounter Plan of Treatment Upcoming Encounters Date Type Department Care Team (Late st Contact Info) Description 06/08/2024 13:30 EST Appointment [facility] Radiology CT Outpatient - [address] [phone] 06/08/2024 14:30 EST Office Visit [facility] Radiation Oncology - [address] [phone] Pj Bourne MD [address] [place] [address], [address] [place] [phone] documented as of this encounter Results * (ABNORMAL) PROTIME (07/26/2022 13:34 EST) I.N.R. 1.6(H) 0.9 - 1.1 Ratio 07/26/2022 14:49 EST [facility] Pro Time 18.3(H) 9.7 - 12.8 secs 07/26/2022 14:49 EST [facility] Blood VENOUS BLOOD / Unknown Venipuncture / Unknown 07/26/2022 13:34 EST 07/26/2022 14:24 EST Narrative [facility] - 07/26/2022 14:49 EST Moderate Intensity Coumadin INR = 2.0-3.0 Adjustments in anticoagulant therapy dose should be based on the INR and NOT on the Protime. Price Delong MD MPH HEMATOLOGY & PF4 ORDERABLES [facility] [address] [place] [address] * (ABNORMAL) COMPREHENSIVE METABOLIC PANEL (CMP) (07/26/2022 13:34 EST) Sodium 141 136 - 145 mmol/L 07/26/2022 15:12 [facility] Potassium 4.2 3.5 - 5.0 mmol/L 07/26/2022 15:12 [facility] Chloride 102 96 - 110 mmol/L 07/26/2022 15:12 [facility] CO2 Total 29 22 - 32 mmol/L 07/26/2022 15:12 [facility] Glucose 131(H) 70 - 100 mg/dL 07/26/2022 15:12 [facility] BUN 25 10 - 26 mg/dL 07/26/2022 15:12 [facility] Creatinine 1.10(H) 0.52 - 1.04 mg/dL 07/26/2022 15:12 [facility] eGFR 54(L) >60 mL/min/1.7 3m2 07/26/2022 15:12 [facility] Total Protein 7.6 6.3 - 8.2 g/dL 07/26/2022 15:12 [facility] Albumin 4.3 3.4 - 4.9 g/dL 07/26/2022 15:12 [facility] Alkaline Phosphatase 101 38 - 126 U/L 07/26/2022 15:12 [facility] AST 30 15 - 46 U/L 07/26/2022 15:12 [facility] ALT 24 <35 U/L 07/26/2022 15:12 [facility] Bilirubin, Total 1.4(H) <1.4 mg/dL 07/26/19 15:12 [facility] Calcium 9.5 8.5 - 10.5 mg/dL 07/26/2022 15:12 [facility] Albumin/Globulin Ratio 1.3 1.0 - 2.5 07/26/2022 15:12 [facility] Anion Gap 10 5 - 14 07/26/2022 15:12 [facility] Blood VENOUS BLOOD / Unknown Venipuncture / Unknown 07/26/2022 13:34 EST 07/26/2022 14:23 EST Price Delong MD MPH CHEMISTRY & BLOOD GAS ORDERABLES [facility] [address] [place] [address] * (ABNORMAL) COMPLETE BLOOD COUNT AND DIFFERENTIAL (07/26/2022 13:34 EST) WBC 9.38 4.00 - 12.40 K/cmm 07/26/2022 14:48 [facility] RBC 5.69(H) 3.86 - 5.04 M/cmm 07/26/2022 14:48 [facility] Hemoglobin 18.2(H) 11.6 - 15.2 gm/dL 07/26/2022 14:48 [facility] HCT 52.1(H) 34.9 - 44.4 % 07/26/2022 14:48 [facility] MCV 92 81 - 98 fl 07/26/2022 14:48 [facility] MCH 32.0 26.7 - 33.3 pg 07/26/2022 14:48 [facility] MCHC 34.9 32.1 - 35.9 gm/dL 07/26/2022 14:48 [facility] RDW-CV 14.6 <14.7 % 07/26/2022 14:48 [facility] RDW-SD 45.4 <50.4 fl 07/26/2022 14:48 [facility] PLT 237 141 - 377 K/cmm 07/26/2022 14:48 [facility] MPV 12.1 9.5 - 12.7 fl 07/26/2022 14:48 [facility] % Neutrophils 69.7 % 07/26/2022 14:48 [facility] % Lymphocytes 20.3 % 07/26/2022 14:48 [facility] % Monocytes 7.9 % 07/26/2022 14:48 [facility] % Eosinophils 1.3 % 07/26/2022 14:48 [facility] % Basophils 0.6 % 07/26/2022 14:48 [facility] % Immature Grans 0.2 % 07/26/19 14:48 [facility] Absolute Neutrophils 6.54 2.20 - 8.85 K/cmm 07/26/2022 14:48 [facility] Absolute Lymphocytes 1.90 1.09 - 3.30 K/cmm 07/26/2022 14:48 [facility] Absolute Monocytes 0.74 0.10 - 0.80 K/cmm 07/26/2022 14:48 [facility] Absolute Eosinophils 0.12 0.03 - 0.61 K/cmm 07/26/2022 14:48 [facility] ABS Basophils 0.06 0.01 - 0.11 K/cmm 07/26/2022 14:48 [facility] Absolute Immature Grans 0.02 0.00 - 0.06 K/cmm 07/26/2022 14:48 [facility] Type of Differential: Auto 07/26/2022 14:48 [facility] Blood VENOUS BLOOD / Unknown Venipuncture / Unknown 07/26/2022 13:34 EST 07/26/2022 14:22 EST Price Delong MD MPH PACKAGES & DNA PROBE ORDERABLES [facility] [address] [place] [address] documented in this encounter Visit Diagnoses Diagnosis Lung nodule- Primary Solitary pulmonary nodule Neoplasm of unspecified behavior of unspecified site documented in this encounter Discontinued Medications Medication Sig Discontinue Reason Start Date End Da te VICTOZA 3-CHRISTOPHER 0.6 mg/0.1 mL (18 mg/3 mL) injectable pen Error 07/21/2022 07/26/2022 documented as of this encounter Historical Medications * This list may reflect changes made after this encounter. Medication Sig Dispensed Refills Start Date End Date insulin aspart (NOVOLOG FLEXPEN U-100 INSULIN SUBQ) Inject into the skin. 23 mg tiotropium bromide (SPIRIVA RESPIMAT INHALATION) Inhale 2 Puffs as directed daily. VICTOZA 3-CHRISTOPHER 0.6 mg/0.1 mL (18 mg/3 mL) injectable pen 07/21/2022 07/26/2022 clobetasoL (TEMOVATE) 0.05 % cream Apply 1 application topically 2 times daily. 08/23/2022 dilTIAZem (TIAZAC) 120 mg SR capsule Take by mouth daily. 05/21/20222023 added in this encounter Care Teams Miniature Model Maker Relationship Specialty Start Date End Date Unknown, Provider, PCP - General 10/01/09 07/26/22 documented as of this encounter
--- OUTSIDE RECORDS SUMMARY | 2024-02-15 14:59 | XMS_ITS | Encounter Summary ---
Author Organization [facility] Address [address] [place] [address] Care Team Providers Care Hospice Care Sales Consultant Name Role Phone Esther Verma EDWARD Primary Care Provider [phone] Reason for Visit * Reason Comments Follow-up New Patient Visit Encounter Details Date Type Department Care Team (Late st Contact Info) Description 09/13/2022 14:30 EST Office Visit [facility] Cardiothoracic Surgery - [address] [id number] Haley Alfonso MD [address] [place] [address], [address] 5 [place] [address] Primary cancer of right upper [...] Sign Reading Time Taken Comments Blood Pressure 113/70 09/13/2022 1447 EST Pulse 65 09/13/2022 1447 EST Temperature 36.6 ??C (97.8 ??F) 09/13/2022 1447 EST Respiratory Rate 16 09/13/2022 1447 EST Oxygen Saturation 98% 09/13/2022 1447 EST Inhaled Oxygen Concentration - - Weight - - Height - - Body Mass Index - - documented in this encounter Functional Status Functional [...] as of this encounter Progress Notes * Jozef Lennon MD - 09/13/2022 1430 EST [facility] Thoracic Surgery Services Clinic Visit Note Date: 09/14/2022 Patient: Edwige Davis Referred by: Esther Verma Subjective: Edwige Davis is a 71 y.o. female who presents today for New consultation for right upper lobenodule Patient History of Present Illness: This is a 71 Y F with hx tobacco use, Afib with CHF (EF 50% 2019) who presented for consultation for a right upper lobe nodule and enlarged mediastinal lymph nodes that were identified during work upfor rapid Afib and pulmonary edema. She underwent PET CT 07/13/22 that showed the nodule to be 22mm, FDG avid and suspecious for malignancy, it also showed 2 additional lesions in the RUL that were indeterminate in characteristics for maliganacy. She was set up to undergo bronchoscopy, but preop she was found to have pulmonary hypertension and was deemed high risk for bronchoscopy. She subsequently underwent IR biopsy on 08/23/22 that showed NSCLC favoring adenocarcinoma. Patient reports that sheis able to do her daily activities around the house however she has peripheral neuropathy which makes her slower, she also endorses that she can't lie flat because of back issues and can only lie on her side. Only occasional lower extremity edema. PMH PSH Past Medical History: Diagnosis Date ??? Arrhythmia A-Fib ??? CAD (coronary artery disease) ??? CHF (congestive heart failure) (HCC-CMS) (HCC) ??? Chronic kidney disease ??? COPD (chronic obstructive pulmonary disease) (HCC-CMS) (HCC) ??? Diabetes mellitus (HCC) Type 2 ??? Hypertension ??? JESICA (obstructive sleep apnea) Past Surgical History: Procedure Laterality Date ??? CARDIAC CATHERIZATION ??? CORONARY ANGIOPLASTY PCI x2 ??? 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 Social History Family history Social History Tobacco Use ??? Smoking status: Former Types: Cigarettes Quit date: 07/28/2009 Years since quittin.1 ??? Smokeless tobacco: Never Substance Use Topics ??? Alcohol use: Not Currently No family history on file. Medications Allergies Current Outpatient Medications Medication ??? aspirin chewable [...] No current facility-administered medications for this visit. Erythromycin, Gabapentin, Other - see comments, Plavix [clopidogrel], Sudafed [pseudoephedrine hcl], and Sulfa (sulfonamide antibiotics) Review of Systems: 10 point ROS performed, pertinent positives per HPI. All other systems negative. Objective: Physical Examination: Vitals: BP 113/70 Pulse 65 Temp 36.6 ??C (97.8 ??F) (Skin) Resp 16 SpO2 98% Constitutional: No apparent distress HEENT: Moist mucous membranes Respiratory: non labored breathing Cardiovascular: +S1S2, irregular irregularity Gastrointestinal: Soft, Musculoskeletal: No gross deformity Skin: Normal appearance, temperature Neurologic: Alert, oriented Psychiatric: Cooperative In a wheelchair for clinic visit Laboratory: Hospital Outpatient Visit on 08/23/2022 Component Date Value Ref Range Status ??? Glucose, POC 08/23/2022 171 (A) 70 - 100 mg/dL Final ??? HN LAB POC COMMENT (GLUCOSE) 08/23/2022 Test Performed by Nursing Services Final ??? Note to Patient 08/23/2022 Final Value:This result contains rich text formatting which cannot be displayed here. ??? Final Diagnosis 08/23/2022 Final Value:This result contains rich text formatting which cannot be displayed here. ??? Diagnosis Comment 08/23/2022 Final Value:This result contains rich text formatting which cannot be displayed here. ??? Attestation 08/23/2022 By the signature below, the attending physician certifies that they havepersonally conducted a gross and/or microscopic examination of the described specimens and rendered or confirmed the above diagnosis. Final ??? Rapid Diagnosis 08/23/2022 Final Value:This result contains rich text formatting which cannot be displayed here. ??? Clinical History 08/23/2022 Final Value:This result contains rich text formatting which cannot be displayed here. ??? Gross Description 08/23/2022 Final Value:This result contains rich text formatting which cannot be displayed here. ??? Performing Lab 08/23/2022 Final Value:This result contains rich text formatting which cannot be displayed here. ??? Note to Patient 08/23/2022 Final Value:This result contains rich text formatting which cannot be displayed here. ??? Final Diagnosis 08/23/2022 Final Value:This result contains rich text formatting which cannot be displayed here. ??? Diagnosis Comment 08/23/2022 Final Value:This result contains rich text formatting which cannot be displayed here. ??? Attestation 08/23/2022 Final Value:This result contains rich text formatting which cannot be displayed here. ??? Clinical History 08/23/2022 Final Value:This result contains rich text formatting which cannot be displayed here. ??? Gross Description 08/23/2022 Final Value:This result contains rich text formatting which cannot be displayed here. ??? Performing Lab 08/23/2022 Final Value:This result contains rich text formatting which cannot be displayed here. ??? Glucose, POC 08/23/2022 224 (A) 70 - 100 mg/dL Final ??? HN LAB POC COMMENT (GLUCOSE) 08/23/2022 Test Performed by Nursing Services Final Radiology: XR CHEST 1 VIEW Result Date: 08/23/2022 XR CHEST 1 VIEW 08/23/2022 1:35 PM CLINICAL HISTORY/COMMENTS: lung nodule s/p biopsy right COMPARISON: Outside chest CT May 13, 2022.. TECHNIQUE: Single frontal view of the chest. FINDINGS: Soft tissues and extrathoracic findings: None. Bones: Sternotomy wires are seen overlying the upper sternum. There are paravertebral surgical clips. There has been resection of the left fourth rib. Cardiac and mediastinal contours: Normal. Lungs: There is a nodule in the right upper lobe of lung corresponding with findings on the recent chest CT examination. There is a linear area of scarring or atelectasis within the left lower lung laterally. Pleura/diaphragms: There is no pneumothorax status post right lung biopsy. No pneumothorax after right upper lobe lung biopsy. IR BIOPSY Result Date: 08/23/2022 History: Right upper lobe lung nodule Technique and Findings: Written consent was obtained. The patient was prepped and draped in sterile fashion. 1% lidocaine was used for local analgesia. Conscioussedation was administered with the monitoring of the patient's heart rate, blood pressure, respiratory rate, and oxygen saturation. I personally spent 30 minutes in continuous irem-ci-fprk attendancewith the patient during the administration of the moderate sedation and supervised the moderate sedation services that were monitored by an independent trained observer who had no other duties duringthe procedure. I have personally reviewed the nursing documentation. CT guidance was used to position a coaxial needle in the posterior right upper lobe lesion percutaneously. FNA samples were obtained and analyzed by the pathology service present for the biopsy. At the request of the cytopathologyservice, several core specimens of the lesion were obtained and submitted for analysis. Finally, all needles were removed and hemostasis was achieved with a pressure bandage and sterile dressing. Thepatient tolerated the procedure well without complication. Assistance was provided by BELINDA Busby as there was no qualified resident available. Successful, uncomplicated CT guided percutaneous right upper lobe nodule FNA and core biopsy. Pulmonary Function Tests: Pulmonary Functions Testing Results: FEV1 64% DLCO 61% Assessment: This is a 71 Y F with hx tobacco use, Afib with CHF (EF 50%) who presented for consultation for a right upper lobe nodule and enlarged mediastinal lymph nodes that were identified during work up for rapid Afib and pulmonary edema. She was unable to undergo bronchoscopy for mediastinal staging givenher cardiac function with pulmonary hypertension, she underwent IR biopsy on 08/23/22 that showed NSCLC favoring adenocarcinoma. Patient was counseled regarding surgical options for definitive management with wedge resection versus lobectomy which would be ideal for oncologic resection. Patient was counseled regarding the benefits and risks of each option particularly with her borderline PFT and cardiac condition that would probably put her at a higher risk for surgery. Patient verbalized understa nding and elected to pursue radiotherapy as definitive management of her disease rather than undergoing surgery. Plan: - Patient may follow up in the office as needed if any questions arise. Patient seen and examined with Dr. Alfonso. Jozef CHEN Patient seen and examined with resident in clinic. Reviewed imaging and work up with patient and her daughter. Discussed management options including surgical approaches (wedge vs lobectomy), and radiation. Her functional status is diminished, and though I do not have the results from her most recent echo, her pulmonary hypertension was apparently significant enough to preclude bronchoscopy. She is comfortable with pursuing radiation, which she will do closer to home in [facility]. Haley Alfonso MD 09/14/2022 11:26 Haley Alfonso MD documented in this encounter Plan of Treatment Upcoming Encounters Date Type Department Care Team (Late st Contact Info) Description 06/08/2024 13:30 EST Appointment [facility] Radiology CT Outpatient - [address] [id number] 06/08/2024 14:30 EST Office Visit [facility] Radiation Oncology - [facility] [address] [place] [address] Pj Bourne MD [address] [place] [address], [facility], [address] [place] [address] documented as of this encounter Visit Diagnoses Diagnosis 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-CMS)- Primary documented in this encounter Historical Medications * This list may reflect changes made after this encounter. Medication Sig Dispensed Refills Start Date End Date BD ULTRA-FINE SHORT PEN NEEDLE Use 1 pen needle as directed 2 times daily. 06/17/2022 added in this encounter Care Teams Hospice Care Sales Consultant Relationship Specialty Start Date End Date Esther Verma FNP [address] [place] [address] [address] [place] [phone] PCP - General 07/27/22 documented as of this encounter
--- OUTSIDE RECORDS SUMMARY | 2024-02-15 14:59 | XMS_ITS | Encounter Summary ---
Author Organization [facility] Address [address] [place] [address] Care Team Providers Care Forming Acid Dumper Name Role Phone Esther Verma EDWARD Primary Care Provider [phone] Encounter Details Date Type Department Care Team (Late st Contact Info) Description 07/27/2022 Abstract [facility] Pulmonology & Critical Care - [address] [address] Maribel Whitaker RN Social History Tobacco Use Types Packs/Day Years [...] Contact Info) Description 06/08/2024 13:30 EST Appointment [facility] Radiology CT Outpatient - [address] [phone] 06/08/2024 14:30 EST Office Visit [facility] Radiation Oncology - [address] [address] Pj Bourne MD [address] [facility], [facility], Level 2 [place] [phone] documented as of this encounter Visit Diagnoses Not on filedocumented in this encounter Historical Medications * This list may reflect changes made after this encounter. Medication Sig Dispensed Refills Start Date End Date VITAMIN B COMPLEX ORAL Take by mouth. liraglutide (VICTOZA) 0.6 mg/0.1 mL (18 mg/3 mL) injectable pen Inject 1.8 mg into the skin daily. added in this encounter Care Teams Forming Acid Dumper Relationship Specialty Start Date End Date Esther Verma FNP [address] [place] [address] [address] [place] [address] PCP - General 07/27/22 documented as of this encounter
--- OUTSIDE RECORDS SUMMARY | 2024-02-15 14:59 | XMS_ITS | Encounter Summary ---
Author Organization [facility] Address [address] [place] [address] Care Team Providers Care Home Sales Consultant Name Role Phone Esther Verma EDWARD Primary Care Provider [phone] Reason for Referral * Radiology Services (Routine/Next Available) - Authorization Not Required Specialty Diagnoses / Procedures Referred By Contac t Referred To Contact Diagnoses Lung nodule Procedures IR BIOPSY Price Delong MD MPH [address] [place] [phone] [facility] Referral ID Status Reason Start Date Expiration Date Visits Requested Visits Authorized [id number] Authorization Not Required 08/02/2022 1 1 Reason for Visit * Reason Onset Date Comments Follow-up 08/02/2022 Encounter Details Date Type Department Care Team (Late st Contact Info) Description 08/02/2022 Telephone [facility] Pulmonology & [place] [address] Price Delong MD MPH [address] [place] [phone] Follow-up Social History Tobacco Use Types Packs/Day [...] encounter Miscellaneous Notes * Telephone Encounter - Price Delong MD MPH - 08/02/2022 5003 EST Spoke with Edwige via phone. Relayed conversation with Dr. Galeano. Given elevated PA pressures, we have recommended a percutaneous biopsy. documented in this encounter Plan of Treatment Upcoming Encounters Date Type Department Care Team (Late st Contact Info) Description 06/08/2024 13:30 EST Appointment [facility] Radiology CT Outpatient - [address] [address] 06/08/2024 14:30 EST Office Visit [facility] Radiation Oncology - [address] [address] Pj Bourne MD [address] [place] [address], [address] [place] [address] documented as of this encounter Results * IR BIOPSY (08/23/2022 11:33 EST) Anatomical [...] ??I personally spent 30 minutes in continuous jdsv-ag-pctr attendance with the patient during the administration [...] was no qualified resident available. Procedure Note Loyola, Asher Alvarez MD - 08/23/2022 History: Right upper lobe lung nodule Technique and Findings: Written consent was obtained. The patient was prepped and draped insterile fashion. 1% lidocaine was used for local analgesia. Conscioussedation was administered with the monitoring of the patient's heart rate,blood pressure, respiratory rate, and oxygen saturation. I personallyspent 30 minutes in continuous afwq-mv-hsyj attendance with the patientduring the administration of [...] Price Delong MD MPH [facility] documented in this encounter Visit Diagnoses Diagnosis Lung nodule- Primary Solitary pulmonary nodule Lung nodule Solitary pulmonary nodule documented in this encounter Care Teams Home Sales Consultant Relationship Specialty Start Date End Date Esther Verma FNP [address] [facility] [address] [place] [address] PCP - General 07/27/22 documented as of this encounter
--- OUTSIDE RECORDS SUMMARY | 2024-02-15 14:59 | XMS_ITS | Encounter Summary ---
Author Organization [facility] Address [address] [place] [address] Care Team Providers Care Director Of Land Acquisition Name Role Phone Esther Verma Primary Care Provider [phone] Pj Bourne MD Unavailable [phone] Encounter Details Date Type Department Care Team (Latest Contact Info) Description 11/15/2022 13:04 EDT - 11/15/2022 23:59 EDT Hospital Encounter [facility] Radiation Oncology - [address] [address] [facility] Resource, Infinity Discharge Disposition: Home or [...] Contact Info) Description 06/08/2024 13:30 EST Appointment [facility] Radiology CT Outpatient - [address] [address] 06/08/2024 14:30 EST Office Visit [facility] Radiation Oncology - [address] [phone] Pj Bourne MD [address] [place] [phone] documented as of this encounter Visit Diagnoses Not on filedocumented in this encounter Care Teams Director Of Land Acquisition Relationship Specialty Start Date End Date Esther Verma FNP [address] [place] [phone] PCP - General 07/27/22 Pj Bourne MD [address] [place] [phone] Radiation Oncology 10/21/22 documented as of this encounter
--- OUTSIDE RECORDS SUMMARY | 2024-02-15 14:59 | XMS_ITS | Encounter Summary ---
Author Organization [facility] Address [address] [place] [address] Care Team Providers Care Assistant Sales Center Manager Name Role Phone Esther Verma EDWARD Primary Care Provider [phone] Encounter Details Date Type Department Care Team (Late st Contact Info) Description 08/03/2022 23:59 EST Anesthesia Event [facility] OR [address] [place], [place] [phone] Glynn Edward MD [address] [facility], Level 2 [place] [phone] Anesthesia Record Procedure Summary Procedure Name Responsible Anesthesiologist Anesthesia Start Time Anesthesia Stop Time Flexible bronchoscopy with robotic assisted navigation, intra operative imaging and biopsies and endobronchial ultrasound guided transbronchial needle aspiration. (Chest) Events No events on file. Meds * Agents No agents on file. * Blood No blood administrations on file. Lines, Drains, and Airways No LDAs on file. documented in this encounter Social History Tobacco Use Types Packs/Day Years [...] Description 06/08/2024 13:30 EST Appointment [facility] Radiology CT Outpatient - [address] [phone] 06/08/2024 14:30 EST Office Visit [facility] Radiation Oncology - [address] [address] Pj Bourne MD 111 [facility], [facility], Level [address] [place] [phone] documented as of this encounter Visit Diagnoses Not on filedocumented in this encounter Care Teams Assistant Sales Center Manager Relationship Specialty Start Date End Date Etsher Verma FNP [address] [place] [phone] PCP - General 07/27/22 documented as of this encounter
--- OUTSIDE RECORDS SUMMARY | 2024-02-15 14:59 | XMS_ITS | Encounter Summary ---
Author Organization [facility] Address [address] [place] [address] Care Team Providers Care Fmd Teacher Name Role Phone Unknown, Provider Primary Care Provider Reason for Visit * (Routine/Next Available) - Receiving Office to Obtain Authorization Specialty Diagnoses / Procedures Referred By Chau car Referred To Contact Procedures PET OUTSIDE IMAGES Imaging, External Referral ID Status Reason Start Date Expiration Date Visits Requested Visits Authorized [id number] Receiving Office to Obtain Authorization 07/23/2022 1 1 Encounter Details Date Type Department Care Team (Latest Contact Info) Description 07/13/2022 - 07/13/2022 23:59 EST Hospital Encounter [facility] Radiology - [address] [place] [address] [place] [address] Discharge Disposition: Home or Self Care Social [...] skin daily. Reprots taking 18 units 03/25/2020 metoprolol XL (TOPROL-XL) 100 mg tablet Take 1 Tablet by mouth daily. 150 mg total montelukast (SINGULAIR) 10 mg tablet Take 1 Tablet by mouth daily. 02/22/2020 nitroGLYCERIN (NITROSTAT) 0.[address] 1 Tablet under the tongue every 5 minutes as needed for Chest Pain. aspirin chewable 81 mg tablet Take 1 Tablet by mouth daily. 02/14/2024 dilTIAZem (TIAZAC) 120 mg SR capsule Take by mouth daily. 05/21/20222023 furosemide (LASIX) 20 mg tablet Take 1 Tablet by mouth daily. 01/25/2020 02/14/2024 lidocaine (XYLOCAINE) 5 % ointment Apply topically as needed. 08/23/2022 lisinopriL (PRINIVIL) 5 mg tablet Take 1 Tablet by mouth daily. 03/01/2020 02/14/2024 documented as of this encounter Discharge Disposition Disposition Code Departure Means Destination Home or Self Care documented in this encounter Plan of Treatment Upcoming Encounters Date Type Department Care Team (Late st Contact Info) Description 06/08/2024 13:30 EST Appointment [facility] Radiology CT Outpatient - [facility] [address] [place], [place] [phone] 06/08/2024 14:30 EST Office Visit [facility] Radiation Oncology - [facility] [address] [place], [place] [phone] Pj Bourne MD [address] [facility], [facility], [address] [place] [address] documented as of this encounter Procedures Procedure Name Priority Date/Time Associated Diagnosis Comments PET OUTSIDE IMAGES Routine 07/13/2022 13 :06 EST documented in this encounter Results * PET OUTSIDE IMAGES (07/13/2022 13:06 EST) Narrative ALEXYS - 07/23/2022 13:06 EST This is a non-reportable exam. External Imaging IMG OTHER IMAGING OR DERABLES [facility]LEXYS documented in this encounter Visit Diagnoses Not on filedocumented in this encounter Care Teams Fmd Teacher Relationship Specialty Start Date End Date Unknown, Provider, PCP - General 10/01/09 07/26/22 documented as of this encounter
--- OUTSIDE RECORDS SUMMARY | 2024-02-15 14:59 | XMS_ITS | Encounter Summary ---
Author Organization [facility] Address [address] [place] [address] Care Team Providers Care Buffing Line Set Up Worker Name Role Phone Esther Verma Primary Care Provider [phone] Pj Bourne MD Unavailable [phone] Encounter Details Date Type Department Care Team (Latest Contact Info) Description 11/10/2022 12:58 EDT - 11/10/2022 23:59 EDT Hospital Encounter [facility] Radiation Oncology - [address] [address] [facility] Resource, Infinity Discharge Disposition: Home or Self [...] Contact Info) Description 06/08/2024 13:30 EST Appointment [facility] Radiology CT Outpatient - [address] [address] 06/08/2024 14:30 EST Office Visit [facility] Center Radiation Oncology - [address] [address] Pj Bourne MD [address] [place] [phone] documented as of this encounter Visit Diagnoses Not on filedocumented in this encounter Care Teams Buffing Line Set Up Worker Relationship Specialty Start Date End Date Esther Verma FNP [address] [place] [phone] PCP - General 07/27/22 Pj Bourne MD [address] [place] [phone] Radiation Oncology 10/21/22 documented as of this encounter
--- OUTSIDE RECORDS SUMMARY | 2024-02-15 14:59 | XMS_ITS | Encounter Summary ---
Author Organization [facility] Address [address] [place] [address] Care Team Providers Care Load Mixer Name Role Phone BayronEsther EDWARD Primary Care Provider [phone] Reason for Referral * Test (Routine/Next Available) - Authorization Not Required Specialty Diagnoses / Procedures Referred By Contac t Referred To Contact Diagnoses Lung mass Procedures PULMONARY FUNCTION TESTING Carlyle Engle MD [address] [place] [phone] Referral ID Status Reason Start Date Expiration Date Visits Requested Visits Authorized [id number] Authorization Not Required 09/10/2022 1 1 Reason for Visit * Test (Routine/Next Available) - Authorization Not Required Specialty Diagnoses / Procedures Referred By Contac t Referred To Contact Diagnoses Lung mass Procedures PULMONARY FUNCTION TESTING Carlyle Engle MD [address] [place] [phone] Referral ID Status Reason Start Date Expiration Date Visits Requested Visits Authorized [id number] Authorization Not Required 09/10/2022 1 1 Encounter Details Date Type Department Care Team (Latest Contact Info) Description 09/13/2022 13:15 EST - 09/13/2022 23:59 EST Hospital Encounter [facility] Pulmonary Function Lab - [address] [phone] Lung mass Discharge Disposition: Home or Self Care Social [...] documented in this encounter Progress Notes * Maddy Hurd RT - 09/13/2022 1315 EST Testing was performed and recorded in [employer]. See complete report in Procedures. documented in this encounter Plan of Treatment Upcoming Encounters Date Type Department Care Team (Late st Contact Info) Description 06/08/2024 13:30 EST Appointment [facility] Radiology CT Outpatient - [address] [phone] 06/08/2024 14:30 EST Office Visit [facility] Radiation Oncology - [address] [address] Pj Bourne MD [address] [place] [address], [address] 2 [place] [address] documented as of this encounter Procedures Procedure Name Priority Date/Time Associated Diagnosis Comments PULMONARY FUNCTION TESTING Routine 09/13/2022 13:54 EST Lung mass documented in this encounter Results * PULMONARY FUNCTION TESTING (09/13/2022 13:54 EST) 09/13/2022 13:5 4 EST Carlyle Engle MD PFT ORDERABLES [facility] PFT documented in this encounter Visit Diagnoses Diagnosis Lung mass Swelling, mass, or lump in chest documented in this encounter Administered Medications Inactive Administered Medications - up to 3 most recent administrations Medication Order MAR Action Action Date Dose Rate Site albuterol inhaler 360 mcg 360 mcg (4 Puff), inhalation, NOW X1, 1 dose, On 09/13/22 at 1500, Routine Given 09/13/2022 14:05 EST 360 mcg documented in this encounter Orders Medications Ordered That Mohinder ht Not Have Been Administered Count Last Ordered Date First Ordered Date albuterol inhaler 360 mcg 1 09/13/2022 documented in this encounter Care Teams Load Mixer Relationship Specialty Start Date End Date Esther Verma FNP [address] [facility] [address] [place] [address] PCP - General 07/27/22 documented as of this encounter
--- OUTSIDE RECORDS SUMMARY | 2024-02-15 14:59 | XMS_ITS | Encounter Summary ---
Author Organization [facility] Address [address] [place] [address] Care Team Providers Care Licensed Architect Name Role Phone Unknown, Provider Primary Care Provider [phone] Encounter Details Date Type Department Care Team (Late st Contact Info) Description 07/26/2022 13:15 EST Phlebotomy Only [facility] ED Center 2 Phlebotomy [address] [place] [address] Line Out Man, Acc Phlebotomy Lung nodule; Neoplasm of unspecified behavior of unspecified site [...] Contact Info) Description 06/08/2024 13:30 EST Appointment [facility] Radiology CT Outpatient - [facility] [address] [place], [place] [address] 06/08/2024 14:30 EST Office Visit [facility] Radiation Oncology - Main [place] [address] [place] [address] Pj Bourne MD [address] [facility], [facility], [address] 2 [place] [address] documented as of this encounter Procedures Procedure Name Priority Date/Time Associated Diagnosis Comments PROTIME Routine 07/26/2022 13:34 EST Lung nodule Neoplasm of unspecified behavior of unspecified site COMPLETE BLOOD COUNT AND DIFFERENTIAL Routine 07/26/2022 13:34 EST Lung nodule COMPREHENSIVE METABOLIC PANEL (CMP) Routine 07/26/2022 13:34 EST Lung nodule documented in this encounter Results * (ABNORMAL) PROTIME (07/26/2022 13:34 EST) I.N.R. 1.6(H) 0.9 - 1.1 Ratio 07/26/2022 14:49 EST [facility] Pro Time 18.3(H) 9.7 - 12.8 secs 07/26/2022 14:49 EST [facility] Blood VENOUS BLOOD / Unknown Venipuncture / Unknown 07/26/2022 13:34 EST 07/26/2022 14:24 EST Narrative [facility] - 07/26/2022 14:49 EST Moderate Intensity Coumadin INR = 2.0-3.0 Adjustments in anticoagulant therapy dose should be based on the INR and NOT on the Protime. Price Delong MD MPH HEMATOLOGY & PF4 ORDERABLES [facility] [address] [place] [address] * (ABNORMAL) COMPREHENSIVE METABOLIC PANEL (CMP) (07/26/2022 13:34 EST) Sodium 141 136 - 145 mmol/L 07/26/2022 15:12 EST [facility] Potassium 4.2 3.5 - 5.0 mmol/L 07/26/2022 15:12 [facility] Chloride 102 96 - 110 mmol/L 07/26/2022 15:12 [facility] CO2 Total 29 22 - 32 mmol/L 07/26/2022 15:12 [facility] Glucose 131(H) 70 - 100 mg/dL 07/26/2022 15:12 [facility] BUN 25 10 - 26 mg/dL 07/26/2022 15:12 [facility] Creatinine 1.10(H) 0.52 - 1.04 mg/dL 07/26/2022 15:12 [facility] eGFR 54(L) >60 mL/min/1.7 3m2 07/26/2022 15:12 [facility] Total Protein 7.6 6.3 - 8.2 g/dL 07/26/2022 15:12 [facility] Albumin 4.3 3.4 - 4.9 g/dL 07/26/2022 15:12 [facility] Alkaline Phosphatase 101 38 - 126 U/L 07/26/2022 15:12 [facility] AST 30 15 - 46 U/L 07/26/2022 15:12 [facility] ALT 24 <35 U/L 07/26/2022 15:12 [facility] Bilirubin, Total 1.4(H) <1.4 mg/dL 07/26/19 15:12 [facility] Calcium 9.5 8.5 - 10.5 mg/dL 07/26/2022 15:12 [facility] Albumin/Globulin Ratio 1.3 1.0 - 2.5 07/26/2022 15:12 [facility] Anion Gap 10 5 - 14 07/26/2022 15:12 [facility] Blood VENOUS BLOOD / Unknown Venipuncture / Unknown 07/26/2022 13:34 EST 07/26/2022 14:23 EST Price Delong MD MPH CHEMISTRY & BLOOD GAS ORDERABLES [facility] [address] [place] [address] * (ABNORMAL) COMPLETE BLOOD COUNT AND DIFFERENTIAL (07/26/2022 13:34 EST) WBC 9.38 4.00 - 12.40 K/cmm 07/26/2022 14:48 [facility] RBC 5.69(H) 3.86 - 5.04 M/cmm 07/26/2022 14:48 [facility] Hemoglobin 18.2(H) 11.6 - 15.2 gm/dL 07/26/2022 14:48 [facility] HCT 52.1(H) 34.9 - 44.4 % 07/26/2022 14:48 [facility] MCV 92 81 - 98 fl 07/26/2022 14:48 [facility] MCH 32.0 26.7 - 33.3 pg 07/26/2022 14:48 [facility] MCHC 34.9 32.1 - 35.9 gm/dL 07/26/2022 14:48 [facility] RDW-CV 14.6 <14.7 % 07/26/2022 14:48 [facility] RDW-SD 45.4 <50.4 fl 07/26/2022 14:48 [facility] PLT 237 141 - 377 K/cmm 07/26/2022 14:48 [facility] MPV 12.1 9.5 - 12.7 fl 07/26/2022 14:48 [facility] % Neutrophils 69.7 % 07/26/2022 14:48 [facility] % Lymphocytes 20.3 % 07/26/2022 14:48 [facility] % Monocytes 7.9 % 07/26/2022 14:48 [facility] % Eosinophils 1.3 % 07/26/2022 14:48 [facility] % Basophils 0.6 % 07/26/2022 14:48 [facility] % Immature Grans 0.2 % 07/26/19 14:48 [facility] Absolute Neutrophils 6.54 2.20 - 8.85 K/cmm 07/26/2022 14:48 [facility] Absolute Lymphocytes 1.90 1.09 - 3.30 K/cmm 07/26/2022 14:48 [facility] Absolute Monocytes 0.74 0.10 - 0.80 K/cmm 07/26/2022 14:48 [facility] Absolute Eosinophils 0.12 0.03 - 0.61 K/cmm 07/26/2022 14:48 [facility] ABS Basophils 0.06 0.01 - 0.11 K/cmm 07/26/2022 14:48 [facility] Absolute Immature Grans 0.02 0.00 - 0.06 K/cmm 07/26/2022 14:48 [facility] Type of Differential: Auto 07/26/2022 14:48 [facility] Blood VENOUS BLOOD / Unknown Venipuncture / Unknown 07/26/2022 13:34 EST 07/26/2022 14:22 EST Price Delong MD MPH PACKAGES & DNA PROBE ORDERABLES Performing Organization Address City/State/[facility] Co de Phone Number [facility] [address] [place] [address] documented in this encounter Visit Diagnoses Diagnosis Lung nodule Solitary pulmonary nodule Neoplasm of unspecified behavior of unspecified site documented in this encounter Care Teams Licensed Architect Relationship Specialty Start Date End Date Unknown, Provider, PCP - General 10/01/09 07/26/22 documented as of this encounter
--- OUTSIDE RECORDS SUMMARY | 2024-02-15 14:59 | XMS_ITS | Encounter Summary ---
Author Organization [facility] Address [address] [place] [address] Care Team Providers Care Digital Product Specialist Name Role Phone Esther Verma Primary Care Provider [phone] Pj Bourne MD Unavailable [phone] Encounter Details Date Type Department Care Team (Latest Contact Info) Description 10/22/2022 7:29 EDT - 10/22/2022 23:59 EDT Hospital Encounter [facility] Radiation Oncology - [address] [address] Malignant neoplasm of upper lobe, right bronchus [...] Description 06/08/2024 13:30 EST Appointment [facility] [place] [address] 06/08/2024 14:30 EST Office Visit [email or web address] Radiation Oncology - [facility] [address] [place] [address] Pj Bourne MD [address] [facility], [facility], [address] [place] [address] documented as of this encounter Procedures Procedure Name Priority Date/Time Associated Diagnosis Comments RAD ONC MSQ TREATMENT SUMMARY Routine 11/12/2022 11:07 EDT Malignant neoplasm of upper lobe, right bronchus or lung (HCC-CMS) RAD ONC MSQ TREATMENT SUMMARY Routine 11/10/2022 13:58 EDT Malignant neoplasm of upper lobe, right bronchus or lung (HCC-CMS) RAD ONC MSQ TREATMENT SUMMARY Routine 11/08/2022 10:21 EDT Malignant neoplasm of upper lobe, right bronchus or lung (HCC-CMS) documented in this encounter Results * RAD ONC MSQ TREATMENT SUMMARY (11/12/2022 11:07 EDT) Treatment Site RUL SABR MOSAI Q RADIATION ONCOLOGY Course Number 1 MOSAIQ RADIATION ONCOLOGY Prescribed Fractional Dose 1,100 cGray MOSAIQ RADIATION ONCOLOGY Prescribed Total Dose 5,500 cGray MOSAIQ RADIATION ONCOLOGY Actual Fractions Delivered 3 MOSAIQ RADIATION ONCOLOGY Actual Session Delivered Dose 1,100 cGray MOSAIQ RADIATION ONCOLOGY Actual Total Dose 3,300 cGray MOSAIQ RADIATION ONCOLOGY Prescribed Technique SABR MOSAIQ RADIATION ONCOLOGY Elapsed Days 4 MOSAIQ RADIATION ONCOLOGY Start Date 11/08/2022 MOSAIQ RADIATION ONCOLOGY Last Date 11/12/2022 MOSAIQ RADIATION ONCOLOGY Prescribed Number of Fractions 5 MOSAIQ RADIATION ONCOLOGY 11/12/2022 11:0 7 EDT Provider Unknown RADIATION ONCOLOGY O IRIS MOSAIQ RADIATION ONCOLOGY * RAD ONC MSQ TREATMENT SUMMARY (11/10/2022 13:58 EDT) Treatment Site RUL SABR MOSAI Q RADIATION ONCOLOGY Course Number 1 MOSAIQ RADIATION ONCOLOGY Prescribed Fractional Dose 1,100 cGray MOSAIQ RADIATION ONCOLOGY Prescribed Total Dose 5,500 cGray MOSAIQ RADIATION ONCOLOGY Actual Fractions Delivered 2 MOSAIQ RADIATION ONCOLOGY Actual Session Delivered Dose 1,100 cGray MOSAIQ RADIATION ONCOLOGY Actual Total Dose 2,200 cGray MOSAIQ RADIATION ONCOLOGY Prescribed Technique SABR MOSAIQ RADIATION ONCOLOGY Elapsed Days 2 MOSAIQ RADIATION ONCOLOGY Start Date 11/08/2022 MOSAIQ RADIATION ONCOLOGY Last Date 11/10/2022 MOSAIQ RADIATION ONCOLOGY Prescribed Number of Fractions 5 MOSAIQ RADIATION ONCOLOGY 11/10/2022 13:5 8 EDT Provider Unknown RADIATION ONCOLOGY O IRIS MOSAIQ RADIATION ONCOLOGY * RAD ONC MSQ TREATMENT SUMMARY (11/08/2022 10:21 EDT) Treatment Site RUL SABR MOSAI Q RADIATION ONCOLOGY Course Number 1 MOSAIQ RADIATION ONCOLOGY Prescribed Fractional Dose 1,100 cGray MOSAIQ RADIATION ONCOLOGY Prescribed Total Dose 5,500 cGray MOSAIQ RADIATION ONCOLOGY Actual Fractions Delivered 1 MOSAIQ RADIATION ONCOLOGY Actual Session Delivered Dose 1,100 cGray MOSAIQ RADIATION ONCOLOGY Actual Total Dose 1,100 cGray MOSAIQ RADIATION ONCOLOGY Prescribed Technique SABR MOSAIQ RADIATION ONCOLOGY Elapsed Days 0 MOSAIQ RADIATION ONCOLOGY Start Date 11/08/2022 MOSAIQ RADIATION ONCOLOGY Last Date 11/08/2022 MOSAIQ RADIATION ONCOLOGY Prescribed Number of Fractions 5 MOSAIQ RADIATION ONCOLOGY 11/08/2022 10:2 1 EDT Provider Unknown RADIATION ONCOLOGY O IRIS MOSAIQ RADIATION ONCOLOGY documented in this encounter Visit Diagnoses Diagnosis Malignant neoplasm of upper lobe, right bronchus or lung (HCC-CMS) documented in this encounter Care Teams Digital Product Specialist Relationship Specialty Start Date End Date Esther Verma FNP [address] [place] [phone] PCP - General 07/27/22 Pj Bourne MD [address] [place] [address], [address] [place] [phone] Radiation Oncology 10/21/22 documented as of this encounter
--- OUTSIDE RECORDS SUMMARY | 2024-02-15 14:59 | XMS_ITS | Encounter Summary ---
Author Organization [facility] Address [address] [place] [address] Care Team Providers Care Lead Business Analyst Name Role Phone Erinn Vermay EDWARD Primary Care Provider [phone] Pj Bourne MD Unavailable [phone] Encounter Details Date Type Department Care Team (Late st Contact Info) Description 11/11/2022 Radiation Therapy Visit [facility] Radiation Oncology - [address] [phone] Pj Bourne MD [address] [place] [address], Level 2 [place] [address] Primary cancer of right upper [...] Progress Notes * Pj Bourne MD - 11/11/2022 1305 EDT DIVISION OF RADIATION ONCOLOGY- SABR ON TREATMENT VISIT NOTE Diagnosis: Cancer Staging 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-CMS) Staging form: Lung, AJCC 8th Edition - Clinical: Stage IA2 (cT1b, cN0, cM0) - Signed by Pj Bourne MD on 09/13/2022 Date: 11/08/22 Preparation for SBRT Treatment Treatment planning was performed in advance of this SBRT treatment delivery. Prior to this treatment, the physicist analyzed the set-up for potential collisions of the apparatus with the patient, treatment couch, or other devices and the appropriate modifications were made. QA was performed by physics staff. Pre-Treatment Assessment The dose to date is 1100 cGy. The planned total dose is 5500 [...] Info) Description 06/08/2024 13:30 EST Appointment [facility] Radiology CT Outpatient - [address] [phone] 06/08/2024 14:30 EST Office Visit [facility] Radiation Oncology - [address] [address] Pj Bourne MD [address] [place] [phone] documented as of this encounter Visit Diagnoses Diagnosis 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-CMS)- Primary documented in this encounter Care Teams Lead Business Analyst Relationship Specialty Start Date End Date Esther Verma FNP [address] [place] [phone] PCP - General 07/27/22 Pj Bourne MD [address] [place] [phone] Radiation Oncology 10/21/22 documented as of this encounter
--- OUTSIDE RECORDS SUMMARY | 2024-02-15 14:59 | XMS_ITS | Encounter Summary ---
Author Organization [facility] Address [address] [place] [address] Care Team Providers Care Sheep Rancher Name Role Phone BayronEsther EDWARD Primary Care Provider [phone] Pj Bourne MD Unavailable [phone] Reason for Referral * Radiology Services (Routine/Next Available) - Authorization Not Required Specialty Diagnoses / Procedures [facility] Referred To Contact Diagnoses 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-CMS) Procedures CT CHEST WO CONTRAST Pj Bourne MD [address] [place] [phone] [facility] Referral ID Status Reason Start Date Expiration Date Visits Requested Visits Authorized [id number] Authorization Not Required 11/11/2022 1 1 Encounter Details Date Type Department Care Team (Late st Contact Info) Description 11/11/2022 Radiation Therapy Visit [facility] Radiation Oncology - [address] [phone] Pj Bourne MD [address] [place] [phone] Primary cancer of right upper lobe [...] Notes * Pj Bourne MD - 11/11/2022 1300 EDT DIVISION OF RADIATION ONCOLOGY- SABR ON TREATMENT VISIT NOTE Diagnosis: Cancer Staging 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-CMS) Staging form: Lung, AJCC 8th Edition - Clinical: Stage IA2 (cT1b, cN0, cM0) - Signed by Pj Bourne MD on 09/13/2022 Date: 11/10/22 Preparation for SBRT Treatment Treatment planning was performed in advance of this SBRT treatment delivery. Prior to this treatment, the physicist analyzed the set-up for potential collisions of the apparatus with the patient, treatment couch, or other devices and the appropriate modifications were made. QA was performed by physics staff. Pre-Treatment Assessment The dose to date is 2200 cGy. The planned total dose is 5500 [...] ensure accuracy and safety if needed. Subjective: Patient is feeling well, no change in breathing or cough. Objective: [x]No skin changes in treatment field. []Exam deferred Other: Plan of Care The plan of care is to continue treatment as planned. Follow up plan is CT chest in 6 months with follow up visit. Signed By: Pj Bourne MD documented in this encounter Plan of Treatment Upcoming Encounters Date Type Department Care Team (Late st Contact Info) Description 06/08/2024 13:30 EST Appointment [facility] Radiology CT Outpatient - [address] [phone] 06/08/2024 14:30 EST Office Visit [facility] Radiation Oncology - [address] [phone] Pj Bourne MD [address] [place] [address], [facility], Level [address] [place] [phone] documented as of this encounter Results * [...] left lobe of thyroid with calcifications, unchanged. [id number] Narrative 05/16/2023 14:[address] CHEST WO [...] of left lobe of thyroid with calcifications,unchanged. [id number] Pj Bourne MD IMG CT ORDERABLES documented in this encounter Visit Diagnoses Diagnosis 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-CMS)- Primary 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-CMS) documented in this encounter Care Teams Sheep Rancher Relationship Specialty Start Date End Date Esther Verma FNP [address] [place] [address] [address] [place] [address] PCP - General 07/27/22 Pj Bourne MD [address] [place] [address] [address] [place] [phone] Radiation Oncology 10/21/22 documented as of this encounter
--- OUTSIDE RECORDS SUMMARY | 2024-02-15 14:59 | XMS_ITS | Encounter Summary ---
Author Organization [facility] Address [address] [place] [address] Care Team Providers Care Patient Safety Attendant Name Role Phone Esther Verma EDWARD Primary Care Provider [phone] Reason for Visit * Reason Onset Date Comments Coordination Of Care 08/04/2022 Encounter Details Date Type Department Care Team (Late st Contact Info) Description 08/04/2022 Telephone [facility] Interventional Radiology - [facility] [address] [place] [address] Joseph Pacheco, RN [address] [place] [address] Coordination Of Care Social History Tobacco Use Types Packs/Day [...] encounter Miscellaneous Notes * Telephone Encounter - Joseph Pacheco RN - 08/04/2022 1216 EST I spoke with Edwige regarding her eliquis and lung biopsy as ordered by Dr Delong. Per Edwige, her PCP manages this. I let her know I will call them to request permission to hold eliquis for 2 days prior to the biopsy. Edwige requests this is scheduled 08/21 or after. Call to [facility] with AC management request, I spoke with [employer] who will review Radha LEON and get back to us. documented in this encounter Plan of Treatment Upcoming Encounters Date Type Department Care Team (Late st Contact Info) Description 06/08/2024 13:30 EST Appointment [facility] Radiology CT Outpatient - [address] [phone] 06/08/2024 14:30 EST Office Visit [facility] Radiation Oncology - [address] [address] Pj Bourne MD 111 [facility], [facility], Level 2 [place] [phone] documented as of this encounter Visit Diagnoses Not on filedocumented in this encounter Care Teams Patient Safety Attendant Relationship Specialty Start Date End Date Esther Verma FNP [address] [facility] [address] [place] [address] PCP - General 07/27/22 documented as of this encounter
--- OUTSIDE RECORDS SUMMARY | 2024-02-15 14:59 | XMS_ITS | Encounter Summary ---
Author Organization [facility] Address [address] [place] [address] Care Team Providers Care Apns Name Role Phone Esther Verma EDWARD Primary Care Provider [phone] Reason for Visit * Reason Comments Lung Cancer * Consult (Routine) - Authorization Not Required Specialty Diagnoses / Procedures Referred By Chau car Referred To Contact Karime Vo NP [address] [place] [phone] Pj Bourne MD [address] [place] [phone] Referral ID Status Reason Start Date Expiration Date Visits Requested Visits Authorized [id number] Authorization Not Required 1 1 Encounter Details Date Type Department Care Team (Late st Contact Info) Description 09/13/2022 16:00 EST Initial consult [facility] [place] [address] Pj Bourne MD [address] [place] [phone] Primary cancer of right upper lobe [...] No 03/28/2020 documented as of this encounter Consult Notes * Pj Bourne MD - 09/13/2022 1600 EST DIVISION OF RADIATION ONCOLOGY Consult- 09/13/2022 Diagnosis: Cancer Staging 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-CMS) (HCC) Staging form: Lung, AJCC 8th Edition - Clinical: Stage IA2 (cT1b, cN0, cM0) - Signed by Pj Bourne MD on 09/13/2022 Primary Care Provider: Esther Munguia [address] [facility] [address] Referring Provider: Karime Vo NP [address] [facility], [address] [place] [address] Impression: Patient with stage IA lung cancer. She was seen in lung multidisciplinary clinic and evaluated by Dr. Haley Alfonso, cardiothoracic surgery and is deemed not to be a surgical candidate. I saw her today and discussed stereotactic radiation for treatment of her early stage non-small cell lung cancer. Of note and conversation during tumor board the patient has at least 3 other suspicious areas of the lung. 1 is close to the most solid lesion that was biopsied and showed to be adenocarcinoma. Thereare 2 other ones that are subsolid more like groundglass opacities. These were marked on her most recent CT with arrows by Dr. Lehman. I spoke with the patient and her daughter, I will evaluate the second smaller lesion and if it is really quite close to where we are treating I will go ahead and treated at the same time because is easier than trying to treat it sequentially in the future. We discussed that follow-up after treatment would be CT scan every 6 months and that would follow these other suspicious lesions as well as assess for her treatment response. Plan: I offered treatment with SABR radiation. I described 3-5 treatments to the tumor. Short term side effects include fatigue, possible skin reaction, possible mild cough. Late effects include possible rib fracture, intercostal nerve pain near site of treatment, pleuritic chest pain, scarring of the lung causing shortness of breath. The patient would like to proceed with treatment. We will planfor the next available CT simulation appointment. -I sent an email to therapy staff to schedule the patient for Sabre here while I was in the room with the patient. HPI: Edwige Davis is a 71 y.o. year old female who presented with a-fib, work up showed lung lesion. . Work up included imaging which showed a right sided 2 cm solid lesion. It is PET avid. On CT imaging she has 3 other lesions that are smaller and do not appear to be changing as much.. Biopsy showed adenocarcinoma. She is referred here today to discuss treatment options with radiation. Patient was seen in lung [facility] with her daughter Anabell. Had tumor removed from rib, was benign. This was 1990, left side. Symptoms: Weight Loss: no Shortness of breath:yes on inhaler, takes monteleukast at night. Breathing is better. Cough:no Hemoptysis:no Shoulder pain/injury:No Pacemaker/defibrillator/electronic implant: No Prior Radiation: No PFT: 09/13/22 FEV-1 1.35 L 64 % predicted.DLCO 61 % predicted. No family history on file. Pain Score (from Vitals) 09/13/2022 Initial score 0 Final score 0 Location - Past medical history, past surgical history, medications, allergies and social history were all reviewed. Past Medical History: Diagnosis Date ??? Arrhythmia [...] and spinal cord. Current Outpatient Medications Medication ??? aspirin chewable [...] medications for this visit. Allergies Allergen Reactions ??? Erythromycin ??? Gabapentin ??? Other - See Comments Ct dye ??? Plavix [Clopidogrel] ??? Sudafed [Pseudoephedrine Hcl] ??? Sulfa (Sulfonamide Antibiotics) Social History Socioeconomic History ??? Marital status: Single Spouse name: Not on file ??? Number of children: Not on file ??? Years of education: Not on file ??? Highest education level: Not on file Occupational History ??? Not on file Tobacco Use ??? Smoking status: Former Types: [...] on file Housing Stability: Not on file Imaging: XR CHEST 1 VIEW Narrative: XR CHEST 1 VIEW 08/23/2022 1:35 PM [...] no pneumothorax status post right lung biopsy. Impression: No pneumothorax after right upper lobe lung biopsy. IR BIOPSY Narrative: History: Right upper lobe lung nodule Technique and Findings: Written consent was obtained. The patient was prepped and draped in sterile fashion. 1% lidocaine was used for local analgesia. Conscious sedation was administered with the monitoring of the patient's heart rate, blood pressure, respiratory rate, and oxygen saturation. I personally spent 30 minutesin continuous kemk-pe-ayit attendance with the patient during the administration [...] core specimens of the lesion were obtained andsubmitted for analysis. Finally, all needles were removed and hemostasis was achieved with a pressure bandage and sterile dressing. The patient tolerated the procedure well without complication. Assistance was provided by BELINDA Busby as there was no qualified resident available. Impression: Successful, uncomplicated CT guided percutaneous right upper lobe nodule FNA and core biopsy. Exam: Disclaimer: Performance status noted here due to ACR accreditation documentation requirements. Please do not interpret this assessment as reflective of my opinion for this patient's fitness for treatment or potential tolerance. ECOG performance Status: (1) Restricted in physically strenuous activity, ambulatory and able to dowork of light nature Exam was deferred. Vital signs: Blood pressure 113\70, heart rate 65, temperature 97.8, pain 0 out of 10, oxygen saturation 98%. I spent a total of 45 minutes on the date of this encounter meeting with the patient and reviewing documentation/coordinating care as described in the above note. No procedures were performed at the time of the visit. Pj Bourne MD Radiation Oncology Pager [phone] Office [phone] documented in this encounter Plan of Treatment Upcoming Encounters Date Type Department Care Team (Late st Contact Info) Description 06/08/2024 13:30 EST Appointment [facility] Radiology CT Outpatient - [address] [address] 06/08/2024 14:30 EST Office Visit [facility] Radiation Oncology - [address] [address] Pj Bourne MD [address] [place] [address], [address] [place] [phone] documented as of this encounter Visit Diagnoses Diagnosis 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-CMS)- Primary documented in this encounter Care Teams Apns Relationship Specialty Start Date End Date Esther Verma FNP [address] [facility] [address] [place] [phone] PCP - General 07/27/22 documented as of this encounter
--- OUTSIDE RECORDS SUMMARY | 2024-02-15 14:59 | XMS_ITS | Encounter Summary ---
Author Organization [facility] Address [address] [place] [address] Care Team Providers Care Electric Melt Operator Name Role Phone Esther Verma EDWARD Primary Care Provider [phone] Reason for Visit * Reason Onset Date Comments Pre-procedure 08/17/2022 Encounter Details Date Type Department Care Team (Late st Contact Info) Description 08/17/2022 Telephone [facility] [place] [address] Joseph Pacheco RN [address] [place] [address] Pre-procedure Social History Tobacco Use Types Packs/Day Years [...] Telephone Encounter - Joseph Pacheco RN - 08/17/2022 6285 EST Interventional Radiology Appt: Lung Biopsy, 2/ Phone call made to patient to review the following pre-procedure prep & information: I spoke with Edwige and relayed the following information: Check into registration (3rd floor) by 845AM (even if you have pre registered) ??? Most of our procedures utilize some form of sedation. Having a hearse driver to take you home is required. A bus or taxi is not allowed. It is preferable to have your hearse driver accompany you to the appointment. If this is not possible, please bring your drivers contact information with you to the appointment. They need to be accessible by phone, please note the parking garage does not have consistent cell phone coverage. Current Visitor Policy: - Two people are permitted to escort a patient undergoing any procedure requiring sedation or general anesthesia. Patient is aware to call prior to the scheduled procedure if they develop cough, fever, sore throat,loss of taste or smell Pre Sedation Guidelines: ??? Have no Solid food or liquids containing fats(including milk)after midnight before the procedure ??? On the day of your procedure you may only have water, apple juice or sports drinks(Gatorade) until 2 hours before check in time ??? After 7AM, nothing by mouth, however you may take medications at any time with small sips of water Medications - take prescribed medications. You should take as needed pain meds as needed. Meds to hold: ELIQUIS- do not take after Tuesday/ Humulin & Aspart: HOLD AM of proc; Victoza do not take day of proc ??? Do not take Ibuprofen ( Motrin, Advil) for 24 hours prior to the procedure or Aleve (Naproxen) for 2 days prior ??? Full strength Aspirin should not be taken for 5 days prior to this procedure. If you are on a baby Aspirin , this is okay to continue. ( taking any of the above medications could cause a delay in your procedure) -Tylenol (acetaminophen) may be taken for pain. - Bring a list of current medications/allergy list -Shower night before or morning of procedure -Leave all valuables/medications at home (other than glasses/hearing aids).If patient uses a CPAP, they should bring it to the appt. pt verbalized understanding, all questions answered. [facility] RN phone number provided, should they have any further questions prior to this appointment. documented in this encounter Plan of Treatment Upcoming Encounters Date Type Department Care Team (Late st Contact Info) Description 06/08/2024 13:30 EST Appointment [facility] Radiology CT Outpatient - [address] [address] 06/08/2024 14:30 EST Office Visit [facility] Radiation Oncology - [address] [address] Pj Bourne MD [address] [place] [address], [address] [place] [phone] documented as of this encounter Visit Diagnoses Not on filedocumented in this encounter Care Teams Electric Melt Operator Relationship Specialty Start Date End Date Esther Verma FNP 26 [facility] [address] [place] [phone] PCP - General 07/27/22 documented as of this encounter
--- OUTSIDE RECORDS SUMMARY | 2024-02-15 14:59 | XMS_ITS | Encounter Summary ---
Author Organization [facility] Address [address] [place] [address] Care Team Providers Care Postal Service Clerk Name Role Phone Esther Verma EDWARD Primary Care Provider [phone] Encounter Details Date Type Department Care Team (Latest Contact Info) Description 08/23/2022 13:30 EST - 08/23/2022 23:59 EST Hospital Encounter [facility] Radiology [address] [address] Discharge Disposition: Home or Self Care Social [...] Contact Info) Description 06/08/2024 13:30 EST Appointment [facility] Radiology CT Outpatient - [address] [phone] 06/08/2024 14:30 EST Office Visit [facility] Radiation Oncology - [address] [phone] Pj Bourne MD [address] [place] [address], [address] [place] [phone] documented as of this encounter Procedures Procedure Name Priority Date/Time Associated Diagnosis Comments XR CHEST 1 VIEW STAT 08/23/2022 13:44 EST documented in this encounter Results * XR CHEST 1 VIEW (08/23/2022 13:44 [...] Cardoza PA-C IMG DIAGNOSTIC IM AGING ORDERABLES documented in this encounter Visit Diagnoses Not on filedocumented in this encounter Care Teams Postal Service Clerk Relationship Specialty Start Date End Date Esther Verma FNP [address] [place] [address] [place] [phone] PCP - General 07/27/22 documented as of this encounter
--- OUTSIDE RECORDS SUMMARY | 2024-02-15 15:00 | XMS_ITS | Encounter Summary ---
Author Organization [facility] Address [address] [place] [address] Care Team Providers Care Creel Cleaner Name Role Phone Unknown, Provider Primary Care Provider [phone] Encounter Details Date Type Department Care Team (Late st Contact Info) Description 09/30/2009 Results Only [facility] Family Medicine [address] [address] Kamilla Silvestre MD [address] [place] [phone] Social History Tobacco Use Types Packs/Day Years Used Date Smoking Tobacco: Never Assessed Sex and Gender Information Value Date Recorded Sex Assigned at Not on file Gender Identity Not on file Sexual Orientation Not on file documented as of this encounter Plan of Treatment Upcoming Encounters Date Type Department Care Team (Late st Contact Info) Description 06/08/2024 13:30 EST Appointment [facility] Radiology CT Outpatient - [address] [phone] 06/08/2024 14:30 EST Office Visit [facility] Radiation Oncology - [address] [address] Pj Bourne MD 111 [facility], [facility], [address] [place] [phone] documented as of this encounter Procedures Procedure Name Priority Date/Time Associated Diagnosis Comments CYTOPATHOLOGY Routine 09/30/2009 0:00 EDT documented in this encounter Results * CYTOPATHOLOGY (09/30/2009 0:00 EDT) Pathology Report: CYTOPATHOLOGY REPORT ? Reports generated via electronic interface contain original data; ? however they are lacking the format of the original report. ? Caution should be taken when reading/interpreti ng unformatted reports. ? Name: ? EDWIGE BYERS ? Accession #: ? [id number] ? : ? 1950 (Age: 58) ??F ?Collect Date: ? 09/30/2009 ? Location: ? [facility] ? Receive Date: ? 10/02/2009 ? Provider: ?KAMILLA FINE MD ? Copy to: ? Specimen/Source: ?Pap Test, Endocervix, ThinPrep Imaging System with ? manual evaluation ? Last Menstrual Period: ? PIETRO ? Other: ? HPVA - HPV testing requested if ASC-US on the current ThinPrep Pap test. ? SPECIMEN ADEQUACY ? Satisfactory for Evaluation ? - assessment of transformation zone component not applicable ( e.g. atrophy, ? vaginal sample, hysterectomy) ? GENERAL CATEGORIZATION ? Negative for Intraepithelial Lesion or Malignancy ? Document reviewed and electronically signed by: ? Kenna B. Beni, SCT(ASCP) ? Report Date: ??10/03/2009 12:17 ? End of Report ? [facility] 09/30/2009 10/02/2009 Kamilla Silvestre MD PATHOLOGY ORDERABLES Performing Organization Address [facility]/State/ZIP Co de Phone Number [facility] [address] [place] [address] documented in this encounter Visit Diagnoses Not on filedocumented in this encounter Care Teams Creel Cleaner Relationship Specialty Start Date End Date Unknown, Provider, PCP - General 10/01/09 07/26/22 documented as of this encounter
--- OUTSIDE RECORDS SUMMARY | 2024-02-15 15:00 | XMS_ITS | Encounter Summary ---
Author Organization [facility] Address [address] [place] [address] Care Team Providers Care Glass Pulverizer Equipment Operator Name Role Phone Unknown, Provider Primary Care Provider [phone] Esther Verma Primary Care Provider [phone] Pj Bourne MD Unavailable [phone] Encounter Details Date Type Department Care Team (Late st Contact Info) Description 03/05/2022 Lab Requisition [facility] Pathology & Laboratory Medicine - [address] [address] Outr Resulting Lab, Provider Social History Tobacco [...] (Late st Contact Info) Description 06/08/2024 13:30 [facility] Radiology CT Outpatient - [facility] [address] [place], [place] [phone] 06/08/2024 14:30 EST Office Visit [facility] Radiation Oncology - [address] [address] Pj Bourne MD 111 [facility], [facility], [address] [place] [phone] documented as of this encounter Procedures Procedure Name Priority Date/Time Associated Diagnosis Comments SPEP, INCLUDES QUANTITATION OF MONOCLONAL SPIKE PERFORMABLE Today 03/05/2022 11:45 EDT IMMUNOTYPING, SERUM Today 03/05/2022 1 1:45 EDT SPEP, INCLUDES QUANTITATION OF MONOCLONAL SPIKE Routine 03/05/2022 11:45 EDT PROTEIN, TOTAL Today 03/05/2022 11:45 EDT documented in this encounter Results * IMMUNOTYPING, SERUM (03/05/2022 11:45 EDT) Immunotyping, Serum Current Interpretation : Negative for monoclonal immunoglobulin s. Confirmed by immunofixation . Reviewed by: Phil Gibbs MD 03/09/2022 1332 03/09/2022 15:01 EDT [facility] Blood VENOUS BLOOD / Unknown 03/05/2022 11:45 EDT 03/05/2022 21:22 EDT Provider Outr Resulting Lab CHEMISTRY & BLOOD GAS ORDERABLES [facility] [address] [place] [address] * SPEP, INCLUDES QUANTITATION OF MONOCLONAL SPIKE PERFORMABLE (03/05/2022 11:45 EDT) Albumin % 57.1 55.8 - 66.1 % 03/09/2022 15:12 EDT [facility] Albumin g/dL 3.7 3.6 - 5.2 g/dL 03/09/2022 15:12 [facility] Alpha-1 % 4.6 2.9 - 4.9 % 03/09/2022 15:12 [facility] Alpha-1 g/dL 0.30 0.15 - 0.40 g/dL 03/09/2022 15:12 [facility] Alpha-2 % 11.7 7.1 - 11.8 % 03/09/2022 15:12 [facility] Alpha-2 g/dL 0.70 0.50 - 1.00 g/dL 03/09/2022 15:12 [facility] Beta % 11.4 8.4 - 13.1 % 03/09/2022 15:12 [facility] Beta g/dL 0.70 0.60 - 1.20 g/dL 03/09/2022 15:12 [facility] Gamma % 15.2 11.1 - 18.8 % 03/09/2022 15:12 [facility] Gamma g/dL 1.00 0.60 - 1.60 g/dL 03/09/2022 15:12 [facility] SPEP Comment Suspicious pattern seen on protein electrophoresis, immunotyping added by reflex. 03/09/2022 15:12 [facility] Comment:See scanned/suppleme ntary report. Total Protein 6.4 6.3 - 8.2 g/dL 03/09/2022 15:12 [facility] Blood VENOUS BLOOD / Unknown 03/05/2022 11:45 EDT 03/05/2022 21:22 EDT Provider Outr Resulting Lab CHEMISTRY & BLOOD GAS ORDERABLES [facility] [address] [place] [address] * PROTEIN, TOTAL (03/05/2022 11:45 EDT) Blood VENOUS BLOOD / Unknown 03/05/2022 11:45 EDT 03/05/2022 21:22 EDT Provider Outr Resulting Lab CHEMISTRY & BLOOD GAS ORDERABLES [facility] [address] [place] [address] documented in this encounter Visit Diagnoses Not on filedocumented in this encounter Care Teams Glass Pulverizer Equipment Operator Relationship Specialty Start Date End Date Unknown, Provider, PCP - General 10/01/09 07/26/22 Esther Verma FNP [address] [phone] PCP - General 07/27/22 Pj Bourne MD 111 [facility], [address] [place] [phone] Radiation Oncology 10/21/22 documented as of this encounter
--- OUTSIDE RECORDS SUMMARY | 2024-02-15 15:00 | XMS_ITS | Encounter Summary ---
Author Organization [facility] Address [address] [place] [address] Care Team Providers Care Salon Shampoo Assistant Name Role Phone Unknown, Provider Primary Care Provider [phone] Reason for Visit * (Routine/Next Available) - Receiving Office to Obtain Authorization Specialty Diagnoses / Procedures Referred By Chau car Referred To Contact Procedures CT OUTSIDE IMAGES CHEST Imaging, External Referral ID Status Reason Start Date Expiration Date Visits Requested Visits Authorized [id number] Receiving Office to Obtain Authorization 07/21/2022 1 1 Encounter Details Date Type Department Care Team (Latest Contact Info) Description 05/13/2022 - 05/13/2022 23:59 EDT Hospital [facility]s [place] Discharge Disposition: [...] Sig Dispensed Refills Start Date End Date betamethasone valerate (VALISONE) 0.1 % ointment Apply [...] Take 1 Tablet by mouth daily. 02/14/2024 furosemide (LASIX) 20 mg tablet Take [...] Info) Description 06/08/2024 13:30 EST Appointment [facility] Radiology CT Outpatient - [address] [phone] 06/08/2024 14:30 EST Office Visit [facility] Radiation Oncology - [address] [address] Pj Bourne MD 111 [facility], [facility], [address] [place] [address] documented as of this encounter Procedures Procedure Name Priority Date/Time Associated Diagnosis Comments CT OUTSIDE IMAGES CHEST Routine 05/13/2022 12:10 EDT documented in this encounter Results * CT OUTSIDE IMAGES CHEST (05/13/2022 12:10 EDT) Narrative 07/21/2022 12:10 EST This is a non-reportable exam. External Imaging IMG OTHER IMAGING OR DERABLES documented in this encounter Visit Diagnoses Not on filedocumented in this encounter Care Teams Salon Shampoo Assistant Relationship Specialty Start Date End Date Unknown, Provider, PCP - General 10/01/09 07/26/22 documented as of this encounter
--- OUTSIDE RECORDS SUMMARY | 2024-02-15 15:00 | XMS_ITS | Encounter Summary ---
Author Organization [facility] Address [address] [place] [address] Care Team Providers Care Grocery Clerk Stocking Name Role Phone Unknown, Provider Primary Care Provider [phone] Esther Verma Primary Care Provider [phone] Pj Bourne MD Unavailable [phone] Encounter Details Date Type Department Care Team (Late st Contact Info) Description 09/12/2020 Lab Requisition [facility] Pathology & Laboratory Medicine - [address] [address] La Nena Skelton [address] [place] [phone] Encounter for other general examination Social History Tobacco Use Types Packs/Day Years [...] Contact Info) Description 06/08/2024 13:30 EST Appointment [facility] Radiology CT Outpatient - [facility] [address] [place], [place] [address] 06/08/2024 14:30 EST Office Visit [facility] Radiation Oncology - [facility] [address] [place], [place] [phone] Pj Bourne MD [address] [facility], [facility], Level [address] [place] [address] documented as of this encounter Procedures Procedure Name Priority Date/Time Associated Diagnosis Comments SURGICAL PATHOLOGY Today 09/11/2020 9: 14 EST Encounter for other general examination documented in this encounter Results * SURGICAL PATHOLOGY (09/11/2020 9:14 EST) Final Diagnosis A. ENDOCERVIX, CURETTAGE: - Rare benign endocervical cells. B. ENDOMETRIUM, CURETTAGE: - Strips of superficial endometrium with tubal metaplasia. - Fragments of benign squamous mucosa. See comment. C. ENDOMETRIUM, POLYP, BIOPSY: - Benign endometrial polyp. 09/15/2020 17:02 [facility] Diagnosis Comment Deeper sections have been evaluated from endometrial curettage specimen (B). 09/15/2020 17:02 [facility] Attestation By the signature below, the attending physician certifies that they have 1) personally conducted a gross and/or microscopic examination of the described specimen(s), and/or personally interpreted the results of laboratory testing of the described specimen(s), and 2) personally rendered or confirmed the above diagnosis. 09/15/2020 17:02 [facility] at 1702 Clinical History Postmenopausal bleeding 09/15/2020 17:02 [facility] Gross Description A. Received in formalin labelled with proper patient identification (initials B, G) and endocervical curettings is a scant amount of alas mucin (0.3 x 0.3 x 0.1 cm). The specimen is submitted entirely in A1. B. Received in formalin labelled with proper patient identification (initials B, G) and endometrial curettings is an aggregate of hemorrhagic soft tissue (0.5 x 0.4 x 0.2 cm). The specimen is submitted in B1. C. Received in formalin labelled with proper patient identification (initials B, G) and endometrial polyp is an aggregate of polypoid tissue (2.4 x 1.7 x 1.2 cm). The specimen is submitted entirely in C1-C2. BELINDA FITZPATRICK(ASCP) 09/12/2020 16:38 09/15/2020 17:02 EST [facility] Performing Lab [facility] 09/15/2020 17:02 EST [facility] Scanned Images 09/15/2020 17:02 EST [facility] Tissue ENTIRE ENDOMETRIUM / Unknown 09/11/2020 9:14 EST 09/12/2020 16:25 EST Tissue specimen (specimen) ENDOMETRIAL STRUCTURE / Unknown 09/11/2020 9:14 EST 09/12/2020 16:25 EST Tissue specimen (specimen) ENDOMETRIAL STRUCTURE / Unknown 09/11/2020 9:14 EST 09/12/2020 16:25 EST [place] Nena Skelton PATHOLOGY ORDERABLES [facility] [address] [place] [address] documented in this encounter Visit Diagnoses Diagnosis Encounter for other general examination documented in this encounter Care Teams Grocery Clerk Stocking Relationship Specialty Start Date End Date Unknown, MD Katy PCP - General 10/01/09 07/26/22 Esther Verma FNP [address] [phone] PCP - General 07/27/22 Pj Bourne MD 111 [facility], [address] [place] [phone] Radiation Oncology 10/21/22 documented as of this encounter
--- OUTSIDE RECORDS SUMMARY | 2024-02-15 15:00 | XMS_ITS | Encounter Summary ---
Author Organization [facility] Address [address] [place] [address] Care Team Providers Care Dial Mounter Name Role Phone Unknown, Provider Primary Care Provider [phone] Esther Verma Primary Care Provider [phone] Pj Bourne MD Unavailable [phone] Encounter Details Date Type Department Care Team (Late st Contact Info) Description 07/19/2019 Lab Requisition [facility] Pathology & Laboratory Medicine - [address] [address] Jarrell Page MD [address] [place] [address] Encounter for other general examination Social History [...] Contact Info) Description 06/08/2024 13:30 EST Appointment [facility] Radiology CT Outpatient - [address] [phone] 06/08/2024 14:30 EST Office Visit [facility] Center Radiation Oncology - [address] [address] Pj Bourne MD [address] [place] [address], [facility], [address] [place] [phone] documented as of this encounter Procedures Procedure Name Priority Date/Time Associated Diagnosis Comments SURGICAL PATHOLOGY Today 07/19/2019 15 :30 EST Encounter for other general examination documented in this encounter Results * SURGICAL PATHOLOGY (07/19/2019 15:30 EST) Final Diagnosis A. ENDOMETRIUM, BIOPSY: - Predominantly blood. - Rare fragments of atrophic endometrium. - Fragments of benign endocervical epithelium. 07/24/2019 12:59 EST [facility] at 1259 Diagnosis Comment Hand Thermal Cutter slides of this case were reviewed at the intradepartmental consultation conference. 07/24/2019 12:59 EST [facility] Clinical History PMB 07/24/2019 12:59 EST [facility] Gross Description A. Received in formalin labelled with proper patient identification (initials B, G) and EM (endometrium) is an aggregate of hemorrhage (4.2 x 3.2 x 1.2 cm). The specimen is submitted entirely in A1-A9. 0 1 / 0 3 / 2 0 2 0 0 8 : 2 5 07/24/2019 12:59 EST [facility] Resident/Fell ow: Reinaldo Bowen DO 07/24/2019 12:59 EST [facility] Scanned Images 07/24/2019 12:59 EST [facility] Tissue ENTIRE ENDOMETRIUM / Unknown 07/19/2019 15:30 EST 07/19/2019 22:47 EST Jarrell Page MD PATHOLOGY ORDERABLES [facility] [address] [place] [address] documented in this encounter Visit Diagnoses Diagnosis Encounter for other general examination documented in this encounter Care Teams Dial Mounter Relationship Specialty Start Date End Date Unknown, Provider, PCP - General 10/01/09 07/26/22 Esther Verma FNP [address] [place] [address] [place] [phone] PCP - General 07/27/22 Pj Bourne MD [address] [place] [address], [facility] [address] [place] [phone] Radiation Oncology 10/21/22 documented as of this encounter
--- OUTSIDE RECORDS SUMMARY | 2024-02-15 15:00 | XMS_ITS | Encounter Summary ---
Author Organization [facility] Address [address] [place] [address] Care Team Providers Care Back Up Worker Name Role Phone Unknown, Provider Primary Care Provider [phone] Reason for Referral * Vascular Lab (Routine) - Closed Specialty Diagnoses / Procedures Referred By Chau acr Referred To Contact Diagnoses Claudication (HCC-CMS) Procedures US LOWER ARTERIAL DUPLEX Elmo Meneses MD [address] [place] [phone] Referral ID Status Reason Start Date Expiration Date Visits Re quested Visits Authorized [id number] Closed 01/11/2020 1 1 Encounter Details Date Type Department Care Team (Late st Contact Info) Description 01/11/2020 Transcribe Orders [facility] Vascular Surgery - [address] [phone] Elmo Meneses MD [address] [place] [phone] Claudication (HCC-CMS) (Primary Dx) Social History Tobacco Use Types Packs/Day Years Used Date Smoking Tobacco: Never Assessed Sex and Gender Information Value Date Recorded Sex Assigned at Not on file Gender Identity Not on file Sexual Orientation Not on file documented as of this encounter Plan of Treatment Upcoming Encounters Date Type Department Care Team (Late st Contact Info) Description 06/08/2024 13:30 [facility] Radiology CT Outpatient - [place] [address] [place] [address] 06/08/2024 14:30 EST Office Visit [facility] Radiation Oncology - [address] [phone] Pj Bourne MD 111 [facility], [facility], [address] [place] [address] documented as of this encounter Procedures Procedure Name Priority Date/Time Associated Diagnosis Comments US LOWER ARTERIAL DUPLEX BILATERAL WITH SHARYN Routine 03/28/2020 13:48 EDT Claudication ([facility] documented in this encounter Results * US LOWER ARTERIAL DUPLEX BILATERAL WITH SHARYN (03/28/2020 13:48 EDT) Left popliteal dist sys PSV 39 cm/s [facility] Left popliteal prox sys PSV 45 cm/s [facility] Left super femoral dist sys PSV -66 cm/s [facility] POINT [facility] C[facility] Left super femoral mid sys PSV -101 cm/s [facility] POINT OF CARE Left super femoral prox sys PSV 73 cm/s [facility] POINT OF CARE Left profunda sys PSV -54 cm/s [facility] POINT OF CARE Right popliteal dist sys PSV -41 cm/s [facility] POINT OF CARE Right popliteal prox sys PSV -61 cm/s [facility] POINT OF CARE Right super femoral dist sys PSV -52 cm/s [facility] POINT OF CARE Right super femoral mid sys PSV -72 cm/s [facility] POINT OF CARE Right super femoral prox sys PSV -69 cm/s [facility] POINT OF CARE Right profunda sys PSV -53 cm/s [facility] POINT OF CARE Left BUS AND RAIL OPERATOR prox sys PSV 72 cm/s [facility] POINT OF CARE Left BUS AND RAIL OPERATOR dist sys PSV 64 cm/s [facility] POINT OF CARE Right BUS AND RAIL OPERATOR dist sys PSV 81 cm/s [facility] POINT OF CARE Right arm BP 147 mmHg [facility] P OINT OF CARE Left arm BP 147 mmHg [facility] PO INT OF CARE RIGHT SHARYN DIGIT 112 mmHg [facility] POINT OF CARE Right TBI 0.76 [facility] POIN T OF CARE Right posterior tibial 143 mmHg [facility] POINT OF CARE RTDOPED 146 mmHg [facility] POIN T OF CARE Right SHARYN 0.99 [facility] POIN T OF CARE LEFT SHARYN DIGIT 75 mmHg [facility] POINT OF C[facility] Left TBI 0.51 [facility] POIN T OF CARE Left posterior tibial 148 mmHg [facility] POINT [facility] C[facility] LTDOPED 142 mmHg [facility] POIN T OF CARE Left SHARYN 1.01 [facility] POIN T OF CARE Anatomical Region Laterality Modality Vascular Ultrasound Narrative 03/31/2020 15:12 EDT ?No evidence of hemodynamically significant stenosis in the bilateral lower extremities. ?No evidence of arterial insufficiency at rest bilaterally. Right Lower Physiologic Pulse Volume Recording Right ankle: normal Right digit: normal Doppler Waveform Right posterior tibial: triphasic Right dorsalis pedis: triphasic Left Lower Physiologic Pulse Volume Recording Left ankle: normal Left digit: mildly diminished Doppler Waveform Left posterior tibial: triphasic Left dorsalis pedis: triphasic Arterial HPI and Indications Rest pain, patient unclear on whether ambulation worsens the pain. Arterial Past Medical History CAD, Hyperlipidemia, Hypertension and Diabetes Mellitus. Elmo [facility] documented in this encounter Visit Diagnoses Diagnosis Claudication ([facility])- Primary Peripheral vascular disease, unspecified documented in this encounter Care Teams Back Up Worker Relationship Specialty Start Date End Date Unknown, Provider, PCP - General 10/01/09 07/26/22 documented as of this encounter
--- OUTSIDE RECORDS SUMMARY | 2024-02-15 15:00 | XMS_ITS | Encounter Summary ---
Author Organization [facility] Address [address] [place] [address] Care Team Providers Care Digging Machine Operator Name Role Phone Unknown, Provider Primary Care Provider [phone] Reason for Visit * Reason Comments New Patient Visit PVD * Referral (Routine) - Closed Specialty Diagnoses / Procedures Referred By Contdakotah t Referred To Contact Vascular Surgery Diagnoses Pain in leg, unspecified Esther Verma FNP 26 [facility] [address] [place] [phone] Surgery [address] [place] [address] Referral ID Status Reason Start Date Expiration Date Visits Re quested Visits Authorized [id number] Closed 1 1 Encounter Details Date Type Department Care Team (Late st Contact Info) Description 03/28/2020 14:00 EDT Office Visit [facility] Vascular Surgery - [address] [phone] Puja Bella MD 111 [facility], Level [address] [place] [phone] Pain in both feet (Primary Dx) Social History Tobacco Use Types [...] Sign Reading Time Taken Comments Blood Pressure 142/80 03/28/2020 1353 EDT Pulse 93 03/28/2020 1353 EDT Temperature - - Respiratory Rate - - Oxygen Saturation 95% 03/28/2020 1353 EDT Inhaled Oxygen Concentration - - Weight - [...] as of this encounter Progress Notes * Puja Bella III, MD - 03/28/2020 1400 EDT [facility] Division of Vascular Surgery History and Physical Date: 03/28/2020 Patient: Edwige Davis Chief Complaint: Chief Complaint Patient presents with ??? New Patient Visit PVD History of Present Illness: Edwige Davis is a 69 y.o. female with past medical history significant for hypertension, diabetes mellitus type 2 on insulin therapy and hyperlipidemia who was seen in clinic today for bilateral lower extremity pain. Patient reports several months of pain in bilateral feet described as burning with associated paresthesias and numbness. Her symptoms have been self-limiting and interfering with her daily activities. She denies a history of peripheral arterial disease, claudication or nonhealing ulcers. She is a former smoker. She previously tried gabapentin for peripheral neuropathy, however stopped this medication due to adverse side effects. The patient's problem list, allergies, immunizations, and medications were documented, reviewed, and updated as follows: PMH PSH No past medical history on file. No past surgical history on file. Social History Family History Social History Tobacco Use ??? Smoking status: Former Smoker Quit date: 07/28/2009 Years since quittin.6 ??? Smokeless tobacco: Never Used Substance Use Topics ??? Alcohol use: Not on file No family history on file. Medications Current Outpatient Medications Medication ??? aspirin chewable 81 mg tablet ??? betamethasone valerate (VALISONE) 0.1 % ointment ??? calcium carbonate (TUMS) 200 mg calcium (500 mg) tablet,chewable ??? ELIQUIS 5 mg tablet ??? ergocalciferol, vitamin D2, (VITAMIN D ORAL) ??? furosemide (LASIX) 20 mg tablet ??? HUMULIN N NPH INSULIN KWIKPEN 100 unit/mL (3 mL) injectable pen ??? lidocaine (XYLOCAINE) 5 % ointment ??? lisinopriL (PRINIVIL) 5 mg tablet ??? metoprolol XL (TOPROL-XL) 100 mg tablet ??? montelukast (SINGULAIR) 10 mg tablet ??? nitroGLYCERIN (NITROSTAT) 0.4 mg SL tablet No current facility-administered medications for this visit. Allergies Allergies Allergen Reactions ??? Erythromycin ??? Gabapentin ??? Plavix [Clopidogrel] ??? Sudafed [Pseudoephedrine Hcl] ??? Sulfa (Sulfonamide Antibiotics) Review of Systems: Constitutional: No fevers, chills, sweats, fatigue, weight loss HEENT: No migraines, changes in vision, hearing loss, dysphagia Cardiac: No chest pain, palpitations Respiratory: No shortness of breath, cough, wheezes Gastrointestinal: No abdominal pain, diarrhea, constipation Genitourinary/Renal: No dysuria, increased frequency, retention Musculoskeletal: No arthralgias, myalgias Neurologic: No seizures, dizziness, numbness, paresthesias, weakness Hematologic: No bleeding, bruising easily Endocrine: No heat or cold intolerance Integumentary: No rashes, eczema, psoriasis Psychiatry: No anxiety, depression Physical Examination: Vitals: BP (!) 142/80 (BP Cuff Location: Right arm, BP Patient Position: Sitting) Pulse 93 [id number]% General: Alert, active, oriented x 3, NAD HEENT: Normocephalic, EOMI, PERRL Neck: Supple, no masses, no carotid bruit Heart: Irregularly irregular rhythm, normal S1S2 Lungs: CTA bilaterally Abdomen: Soft, nondistended Musculoskeletal: Normal ROM, no joint deformity or tenderness Neurologic: CNII-XII intact, no gross motor or sensory deficits Psych: Normal mood and affect Extremities: Warm and well perfused, no edema Pulses Femoral DP PT Right 2+ 2+ 2+ Left 2+ 2+ nonpalpable Diagnostic Tests: 03/28/2020 Duplex US arterial ??? No evidence of hemodynamically significant stenosis in the bilateral lower extremities. ??? No evidence of arterial insufficiency at rest bilaterally. Assessment/Plan: Edwige Davis is a 69 y.o. female with past medical history significant for hypertension, diabetes mellitus type 2 on insulin and hyperlipidemia who was seen in clinic today for bilateral lower extremity pain. The patient's history, physical exam and noninvasive imaging are most consistent with diabetic peripheral neuropathy. Noninvasive studies performed today demonstrated non-hemodynamically significant peripheral arterial disease with SHARYN 0.99 on the right and 1.01 on the left with toe pressures 112 mmHg on the right and 75 mmHg on the left. I discussed these findings with the patient. She explained to me that she previously attempted gabapentin for treatment of peripheral neuropathy but felt the medication caused an adverse reaction. I recommended that she follow-up with her primary care physician regarding treatment of a peripheral neuropathy. She may follow-up with me on an as-needed basis. Puja Bella MD Vascular Surgery 03/28/2020 documented in this encounter Plan of Treatment Upcoming Encounters Date Type Department Care Team (Late st Contact Info) Description 06/08/2024 13:30 EST Appointment [facility] Radiology CT Outpatient - [address] [phone] 06/08/2024 14:30 EST Office Visit [facility] Radiation Oncology - [address] [phone] Pj Bourne MD [address] [place] [address], [facility], Level [address] [place] [address] documented as of this encounter Visit Diagnoses Diagnosis Pain in both feet- Primary Pain in limb documented in this encounter Historical Medications * This list may reflect changes made after this encounter. Medication Sig Dispensed Refills Start Date End Date ergocalciferol, vitamin D2, (VITAMIN D ORAL) Take by mouth. betamethasone valerate (VALISONE) 0.1 % ointment Apply topically if needed. calcium carbonate (TUMS) 200 mg calcium (500 mg) tablet,chewable Take 1 Tablet by mouth daily. nitroGLYCERIN (NITROSTAT) 0.[address] 1 Tablet under the tongue every 5 minutes as needed for Chest Pain. HUMULIN N NPH INSULIN KWIKPEN 100 unit/mL (3 mL) injectable pen Inject 15 Units into the skin daily. Reprots taking 18 units 03/25/2020 metoprolol XL (TOPROL-XL) 100 mg tablet Take 1 Tablet by mouth daily. 150 mg total montelukast (SINGULAIR) 10 mg tablet Take 1 Tablet by mouth daily. 02/22/2020 ELIQUIS 5 mg tablet Take 1 Tablet by mouth 2 times daily. 03/01/2020 lidocaine (XYLOCAINE) 5 % ointment Apply topically as needed. 08/23/2022 aspirin chewable 81 mg tablet Take 1 Tablet by mouth daily. 02/14/2024 lisinopriL (PRINIVIL) 5 mg tablet Take 1 Tablet by mouth daily. 03/01/2020 02/14/2024 furosemide (LASIX) 20 mg tablet Take 1 Tablet by mouth daily. 01/25/2020 02/14/2024 added in this encounter Care Teams Digging Machine Operator Relationship Specialty Start Date End Date Unknown, Provider, PCP - General 10/01/09 07/26/22 documented as of this encounter
--- OUTSIDE RECORDS SUMMARY | 2024-02-15 15:00 | XMS_ITS | Encounter Summary ---
Author Organization [facility] Address [address] [place] [address] Care Team Providers Care Commissioning Specialist Name Role Phone Unknown, Provider Primary Care Provider [phone] Reason for Visit * Vascular Lab (Routine) - Closed Specialty Diagnoses / Procedures Referred By Chau car Referred To Contact Diagnoses Claudication ([facility]) Procedures US LOWER ARTERIAL DUPLEX Elmo Meneses MD 111 [facility], [address] [place] [address] Referral ID Status Reason Start Date Expiration Date Visits Re quested Visits Authorized [id number] Closed 01/11/2020 1 1 Encounter Details Date Type Department Care Team (Late st Contact Info) Description 03/28/2020 13:00 EDT Ancillary Procedure [facility] Vascular Surgery - [address] [phone] Social History Tobacco Use Types Packs/Day Years [...] EST Appointment [facility] Radiology CT Outpatient - [facility] [address] [place] [address] 06/08/2024 14:30 EST Office Visit [facility] Radiation Oncology - [facility] [address] [place], [place] [address] Pj Bourne MD [address] [facility], Level [address] [place] [phone] documented as of this encounter Procedures Procedure Name Priority Date/Time Associated Diagnosis Comments US LOWER ARTERIAL DUPLEX BILATERAL WITH SHARYN Routine 03/28/2020 13:48 EDT Claudication ([facility]) documented in this encounter Results * US [...] -53 cm/s [facility]INT [facility] C[facility] Left FLAT DRIER prox sys PSV 72 cm/s [facility]INT [facility] C[facility] Left FLAT DRIER dist sys PSV 64 cm/s [facility] POINT OF CARE Right FLAT DRIER dist sys PSV 81 cm/s [facility] POINT [...] CAD, Hyperlipidemia, Hypertension and Diabetes Mellitus. Elmo Meneses MD [facility] RDERABLES documented in this encounter Visit Diagnoses Not on filedocumented in this encounter Care Teams Commissioning Specialist Relationship Specialty Start Date End Date Unknown, Provider, PCP - General 10/01/09 07/26/22 documented as of this encounter
[2024-02-15 16:19] LABS: ALT 27 U/L (14-59); AST 31 U/L (15-37); Albumin 3.6 g/dL (3.4-5.0); Alkaline Phosphatase 114 U/L (46-116); BUN 28 mg/dL (7-18); Bilirubin, Total 1.37 mg/dL (0.2-1.0); CREATININE 1.3 mg/dL (0.55-1.02); Calcium 9.4 mg/dL (8.5-10.1); Chloride 102 mmol/L (98-107); Estimated GFR 43.42 (mL/min/1.73m2); Glucose 233 mg/dL (74-106); Potassium 4.9 mmol/L (3.5-5.1); Sodium 143 mmol/L (136-145); Total Protein 7.7 g/dL (6.4-8.2)
== END 2024-02-15 14:56 | disposition home or self-care (01) ==
LOC: NCHCN 14:55
PROVIDERS: PCP Nurse Practitioner Family; Visit Provider Nurse Practitioner Family
DX: N18.9 Chronic kidney disease, unspecified (principal)
CPT/HCPCS: 80053

== ENCOUNTER 2024-02-17 14:37 | Outpatient (CLI) | payer MEDICARE, SELFPAY ==
--- OUTSIDE RECORDS SUMMARY | 2024-02-17 14:41 | XMS_ITS | Data Portability ---
Author Organization [place] [facility], [facility] [place] [address] Assessment Encounter Date Assessment Date Assessment LastModified by Organization Details LastModified Time 07/13/2023 07/13/2023 Edwige has new onset of right lower calf swelling with change in right sided chest pain. Patient will go to lab and have D-dimer drawn. I have ordered an ultrasound of the lower extremity to rule out unlikely PE. If ultrasound is positive for DVT will move forward with chest CT due to presence of non-cardiac chest pain. If d-dimer is positive will move forward with chest CT due to presence of chest pain. Not available 07/14/2023 11:12:39 Plan of Treatment Reminders Order Date Submit Date Provider Last Modified By Organization Details Last Modified Time Details Appointments Office Visit 30 2023 01:00P Patrick CARRASCO, Not available Not available Not available Lab D-dimer, qual, plasma 2022 023 [facility] ([facility]), [address] [place] [address] [place], [address], 10/04/2023 15:06:50 hemoglobi n A1C, fingersti ck 2023 024 [email or web address] [facility], [address] [place] [address], [id number], 12/01/2023 15:55:30 PTH (parathyr oid hormone), intact, serum or plasma 2023 024 [facility] ([facility]), [address] [place] [address] [place], [address], 01/26/2024 09:19:39 CMP, serum or plasma 2023 024 [facility] (Registration ), [address] [place] [address] [place], [address], 01/25/2024 16:41:29 HbA1c (hemoglob in A1c), blood 2023 024 [facility] (Registration ), [address] [place] [address] [place], [address], 01/30/2024 13:01:47 CMP, serum or plasma - 1Y 2023 024 [facility] ([facility]), [address] [place] [address] [place], [address], 02/15/2024 16:23:17 Referral cardiolog ist referral [address] [facility], [address], [place], [address], 02/06/2024 15:45:08 Procedures None recorded. Surgeries None recorded. Imaging US, duplex, venous, lower extremity , unilatera l - RIGHT [address] [facility] (Radiology), [address] [place] [address] [place], [address], 07/14/2023 15:03:04 MAMMO, diagnosti c, unilatera l - New onset right sided breast pain. There is pain with clinical breast exam, but no palpable abnormali ty. [address] (Radiology), [address] [place] [address] [place], [address], 07/14/2023 12:21:05 electroca rdiogram 2023 024 [facility], [address] [place] [address], [id number], 01/24/2024 15:41:12 electroca rdiogram 2023 024 [facility], [address] [place] [address], [id number], 01/26/2024 11:58:28 electroca rdiogram 2023 024 [facility], [address] [place], [address], 02/16/2024 15:57:26 Medication Orders Nitrostat 0.4 mg sublingua l tablet 2022 023 NEEL [facility], [address] [place] [address], [id number], 07/13/2023 14:48:22 duloxetin e 30 mg capsule,d elayed release 2023 024 [facility], [address] [place] [address], [id number], 12/01/2023 11:29:01 Victoza 3-Abdulaziz 0.6 mg/0.1 mL (18 mg/3 mL) subcutane ous pen injector 2023 024 NEEL [facility], [address] [place] [address], [id number], 01/25/2024 10:04:37 diltiazem ER 240 mg capsule,2 4 hr,extend ed release 2023 024 [email or web address] [facility], [address] [place] [address], [id number], 01/24/2024 15:41:16 Victoza 3-Abdulaziz 0.6 mg/0.1 mL (18 mg/3 mL) subcutane ous pen injector 2023 024 [email or web address] [facility], [address] [place] [address], [address], [place], [address], 01/25/2024 12:55:12 Patient TargetsNo targets recorded. 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 [employer] Referral for At rial fibrillation Referring Physician: Heath Carrasco [facility], Encounter Date: 01/18/2024 Results Created Date Observation Date Name Description Value Unit Range Abnormal Flag LastModifiedBy Organization Detail LastModifiedTime 06/19/2006/19/2023 COMPL ETE BLOOD COUNT W/DIF F WBC 10.91 10_3/ uL 4.4-10 .8 high Not Available [address] [place], [address] 06/19/2023 06:21:10 06/19/20 23 06/19/2023 COMPL ETE BLOOD COUNT W/DIF F RBC 5.71 10_6/ uL 3.93-5 .22 high Not Available [address] [place], [address] 06/19/2023 06:21:10 06/19/20 23 06/19/2023 COMPL ETE BLOOD COUNT W/DIF F HGB 17.6 g/dL 11.2-1 5.7 high Not Available [address] [place], [address] 06/19/2023 06:21:10 06/19/20 23 06/19/2023 COMPL ETE BLOOD COUNT W/DIF F HCT 52.1 % 36.0-4 6.0 high Not Available [address] [place], [address] 06/19/2023 06:21:10 06/19/20 23 06/19/2023 COMPL ETE BLOOD COUNT W/DIF F MCV 91 fL 80-95 normal Not Available Jourdan [email or web address] [address] [place], [address] 06/19/2023 06:21:10 06/19/20 23 06/19/2023 COMPL ETE BLOOD COUNT W/DIF F MCH 30.8 pg 27.0-3 3.0 normal Not Available [address] [place], [address] 06/19/2023 06:21:10 06/19/20 23 06/19/2023 COMPL ETE BLOOD COUNT W/DIF F MCHC 33.8 % 32.0-3 6.0 normal Not Available [address] [place], [address] 06/19/2023 06:21:10 06/19/20 23 06/19/2023 COMPL ETE BLOOD COUNT W/DIF F RDW 13.7 % 11.7-1 4.6 normal Not Available [address] [place], [address] 06/19/2023 06:21:10 06/19/20 23 06/19/2023 COMPL ETE BLOOD COUNT W/DIF F platelet count 291 10_3/ uL 130-40 0 normal Not Available [address] [place], [address] 06/19/2023 06:21:10 06/19/20 23 06/19/2023 COMPL ETE BLOOD COUNT W/DIF F MPV 11.1 fL 8.0-11 .0 high Not Available [address] [place], [address] 06/19/2023 06:21:10 06/19/20 23 06/19/2023 COMPL ETE BLOOD COUNT W/DIF F neutrophils % 70.0 Not Available [address] [place], [address] 06/19/2023 06:21:10 06/19/20 23 06/19/2023 COMPL ETE BLOOD COUNT W/DIF F lymphocytes % 17.0 Not Available [address] [place], [address] 06/19/2023 06:21:10 06/19/20 06/19/2023 COMPL ETE BLOOD COUNT W/DIF F monocytes % 10.7 Not Available [address] [place], [address] 06/19/2023 06:21:10 06/19/20 23 06/19/2023 COMPL ETE BLOOD COUNT W/DIF F eosinophils % 1.5 Not Available [address] [place], [address] 06/19/2023 06:21:10 06/19/20 23 06/19/2023 COMPL ETE BLOOD COUNT W/DIF F basophils % 0.5 Not Available [address] [place], [address] 06/19/2023 06:21:10 06/19/20 23 06/19/2023 COMPL ETE BLOOD COUNT W/DIF F immature grans % 0.3 Not Available [address] [place], [address] 06/19/2023 06:21:10 06/19/20 23 06/19/2023 COMPL ETE BLOOD COUNT W/DIF F nucleated RBC 0.0 % 0.0-0. 3 normal Not Available [address] [place], [address] 06/19/2023 06:21:10 06/19/20 23 06/19/2023 COMPL ETE BLOOD COUNT W/DIF F absolute neutrophil count 7.64 10_3/ uL 1.2-6. 7 high Not Available [address] [place], [address] 06/19/2023 06:21:10 06/19/20 23 06/19/2023 COMPL ETE BLOOD COUNT W/DIF F absolute lymphocyte count 1.85 10_3/ uL 1.2-3. 4 normal Not Available [address] [place], [address] 06/19/2023 06:21:10 06/19/20 23 06/19/2023 COMPL ETE BLOOD COUNT W/DIF F absolute monocyte count 1.17 10_3/ uL 0.1-0. 8 high Not Available [address] [place], [address] 06/19/2023 06:21:10 06/19/20 23 06/19/2023 COMPL ETE BLOOD COUNT W/DIF F absolute eosinophil count 0.16 10_3/ uL 0.0-0. 7 normal Not Available [address] [place], [address] 06/19/2023 06:21:10 06/19/20 23 06/19/2023 COMPL ETE BLOOD COUNT W/DIF F absolute basophil count 0.05 10_3/ uL 0.0-0. 2 normal Not Available [address] [place], [address] 06/19/2023 06:21:10 06/19/2006/19/2023 COMPR EHENS BILL METAB OLIC PANEL calcium 9.7 mg/dL 8.5-10 .1 normal Not Available [address] [place], [address] 06/19/2023 06:52:12 06/19/2006/19/2023 COMPR EHENS BILL METAB OLIC PANEL glucose 171 mg/dL 74-106 high Not Available [address] [place], [address] 06/19/2023 06:52:12 06/19/2006/19/2023 COMPR EHENS BILL METAB OLIC PANEL BUN 22 mg/dL 7-18 high Not Available [address] [place], [address] 06/19/2023 06:52:12 06/19/2006/19/2023 COMPR EHENS BILL METAB OLIC PANEL creatinine 1.3 mg/dL 0.55-1 .02 high Not Available [address] [place], [address] 06/19/2023 06:52:12 06/19/2006/19/2023 COMPR EHENS BILL METAB OLIC PANEL estimated GFR 43.69 mL/min /1.73m 2 Not Available [address] [place], [address] 06/19/2023 06:52:12 06/19/20 23 06/19/2023 COMPR EHENS BILL METAB OLIC PANEL total protein 8.1 g/dL 6.4-8. 2 normal Not Available [address] [place], [address] 06/19/2023 06:52:12 06/19/20 23 06/19/2023 COMPR EHENS BILL METAB OLIC PANEL albumin 3.3 g/dL 3.4-5. 0 low Not Available [address] [place], [address] 06/19/2023 06:52:12 06/19/20 23 06/19/2023 COMPR EHENS BILL METAB OLIC PANEL bilirubin, total 1.0 mg/dL 0.2-1. 0 normal Not Available [address] [place], [address] 06/19/2023 06:52:12 06/19/20 23 06/19/2023 COMPR EHENS BILL METAB OLIC PANEL alk phos 116 U/L 46-116 normal Not Available [address] [place], [address] 06/19/2023 06:52:12 06/19/20 23 06/19/2023 COMPR EHENS BILL METAB OLIC PANEL sodium 140 mmol/ L 136-14 5 normal Not Available [address] [place], [address] 06/19/2023 06:52:12 06/19/20 23 06/19/2023 COMPR EHENS BILL METAB OLIC PANEL potassium 3.5 mmol/ L 3.5-5. 1 normal Not Available [address] [place], [address] 06/19/2023 06:52:12 06/19/20 23 06/19/2023 COMPR EHENS BILL METAB OLIC PANEL chloride 101 mmol/ L 98-107 normal Not Available [address] [place], [address] 06/19/2023 06:52:12 06/19/20 23 06/19/2023 COMPR EHENS BILL METAB OLIC PANEL CO2 31.2 mmol/ L 21.0-3 2.0 normal Not Available [address] [place], [address] 06/19/2023 06:52:12 06/19/20 23 06/19/2023 COMPR EHENS BILL METAB OLIC PANEL anion gap 7.8 mmol/ L 3-11 normal Not Available [address] [place], [address] 06/19/2023 06:52:12 06/19/20 23 06/19/2023 COMPR EHENS BILL METAB OLIC PANEL AST 28 U/L 15-37 normal Not Available [address], [address] 06/19/2023 06:52:12 06/19/2006/19/2023 COMPR EHENS BILL METAB OLIC PANEL ALT 30 U/L 14-59 normal Not Available [address] [place], [address] 06/19/2023 06:52:12 06/19/20 23 06/19/2023 MAGNE SIUM magnesium 2.1 mg/dL 1.8-2. 4 normal Not Available [address] [place], [address] 06/19/2023 06:52:12 06/19/2006/19/2023 CARDI AC TROPO JR I cardiac troponin I < 50 NG/L <or=60 Not Available [address] [place], [address] 06/19/2023 06:52:13 06/19/2006/19/2023 NT-WV OBNP nt-probnp 1489 pg/mL <300 high Not Available [address], [address] 06/19/2023 06:52:13 06/19/2006/19/2023 CARDI AC TROPO JR I cardiac troponin I < 50 NG/L <or=60 Not Available [address] [place], [address] 06/19/2023 11:11:24 06/19/2006/19/2023 PROCA LCITO JR procalcitoni n < 0.1 NG/mL Not Available [address] [place], [address] 06/19/2023 12:06:30 06/19/20 23 06/19/2023 COVID /FLU/ RSV PCR source Nasoph arynx Not Available [address] [place], [address] 06/19/2023 12:45:32 06/19/20 23 06/19/2023 COVID /FLU/ RSV PCR covid-19 PCR Negati ve negati ve Not Available [address] [place], [address] 06/19/2023 12:45:32 06/19/20 23 06/19/2023 COVID /FLU/ RSV PCR influenza A PCR Negati ve negati ve Not Available [address] [place], [address] 06/19/2023 12:45:32 06/19/20 23 06/19/2023 COVID /FLU/ RSV PCR influenza B PCR Negati ve negati ve Not Available [address] [place], [address] 06/19/2023 12:45:32 06/19/20 23 06/19/2023 COVID /FLU/ RSV PCR RSV PCR Negati ve negati ve Not Available [address] [place], [address] 06/19/2023 12:45:32 06/19/20 23 06/19/2023 LAB ADD ON TEST lab add on test COMPLE THELMA Not Available [address] [place], [address] 06/19/2023 13:54:35 06/19/20 23 06/19/2023 TSH TSH 0.84 uIU/m L 0.36-3 .74 normal Not Available [address] [place], [address] 06/19/2023 14:17:37 06/19/20 23 06/19/2023 FREE T4 free T4 1.30 NG/dL 0.76-1 .46 normal Not Available [address] [place], [address] 06/19/2023 14:17:37 06/19/20 23 06/19/2023 CARDI AC TROPO JR I cardiac troponin I < 50 NG/L <or=60 Not Available [address] [place], [address] 06/19/2023 14:19:37 06/19/20 23 06/19/2023 LAB ADD ON TEST lab add on test DONE Not Available [address] [place], [address] 06/19/2023 14:29:37 06/20/20 23 06/20/2023 CARDI AC TROPO JR I cardiac troponin I < 50 NG/L <or=60 Not Available [address] [place], [address] 06/20/2023 00:40:14 06/20/20 23 06/20/2023 BASIC METAB OLIC PANEL calcium 8.8 mg/dL 8.5-10 .1 normal Not Available [address] [place], [address] 06/20/2023 07:09:37 06/20/20 23 06/20/2023 BASIC METAB OLIC PANEL glucose 160 mg/dL 74-106 high Not Available [address] [place], [address] 06/20/2023 07:09:37 06/20/20 23 06/20/2023 BASIC METAB OLIC PANEL BUN 22 mg/dL 7-18 high Not Available [address] [place], [address] 06/20/2023 07:09:37 06/20/20 23 06/20/2023 BASIC METAB OLIC PANEL creatinine 1.1 mg/dL 0.55-1 .02 high Not Available [address] [place], [address] 06/20/2023 07:09:37 06/20/20 23 06/20/2023 BASIC METAB OLIC PANEL estimated GFR 53.39 mL/min /1.73m 2 Not Available [address] [place], [address] 06/20/2023 07:09:37 06/20/20 23 06/20/2023 BASIC METAB OLIC PANEL sodium 139 mmol/ L 136-14 5 normal Not Available [address] [place], [address] 06/20/2023 07:09:37 06/20/20 23 06/20/2023 BASIC METAB OLIC PANEL potassium 3.5 mmol/ L 3.5-5. 1 normal Not Available [address] [place], [address] 06/20/2023 07:09:37 06/20/20 23 06/20/2023 BASIC METAB OLIC PANEL chloride 103 mmol/ L 98-107 normal Not Available [address] [place], [address] 06/20/2023 07:09:37 06/20/20 23 06/20/2023 BASIC METAB OLIC PANEL CO2 30.6 mmol/ L 21.0-3 2.0 normal Not Available [address] [place], [address] 06/20/2023 07:09:37 06/20/20 23 06/20/2023 BASIC METAB OLIC PANEL anion gap 5.4 mmol/ L 3-11 normal Not Available [address] [place], [address] 06/20/2023 07:09:37 06/20/20 23 06/20/2023 MAGNE SIUM magnesium 1.9 mg/dL 1.8-2. 4 normal Not Available [address] [place], [address] 06/20/2023 07:09:38 06/20/20 23 06/20/2023 CARDI AC TROPO JR I cardiac troponin I < 50 NG/L <or=60 Not Available [address] [place], [address] 06/20/2023 07:09:38 06/20/20 23 06/20/2023 CARDI AC TROPO JR I cardiac troponin I < 50 NG/L <or=60 Not Available [address] [place], [address] 06/20/2023 11:43:07 06/20/20 23 06/20/2023 CARDI AC TROPO JR I cardiac troponin I < 50 NG/L <or=60 Not Available [address] [place], [address] 06/20/2023 13:52:22 06/21/20 23 06/21/2023 BASIC METAB OLIC PANEL calcium 9.6 mg/dL 8.5-10 .1 normal Not Available [address] [place], [address] 06/21/2023 07:35:07 06/21/20 23 06/21/2023 BASIC METAB OLIC PANEL glucose 181 mg/dL 74-106 high Not Available [address] [place], [address] 06/21/2023 07:35:07 06/21/20 23 06/21/2023 BASIC METAB OLIC PANEL BUN 23 mg/dL 7-18 high Not Available [address] [place], [address] 06/21/2023 07:35:07 06/21/20 23 06/21/2023 BASIC METAB OLIC PANEL creatinine 1.0 mg/dL 0.55-1 .02 normal Not Available [address] [place], [address] 06/21/2023 07:35:07 06/21/20 23 06/21/2023 BASIC METAB OLIC PANEL estimated GFR 59.86 mL/min /1.73m 2 Not Available [address] [place], [address] 06/21/2023 07:35:07 06/21/20 23 06/21/2023 BASIC METAB OLIC PANEL sodium 142 mmol/ L 136-14 5 normal Not Available [address] [place], [address] 06/21/2023 07:35:07 06/21/20 23 06/21/2023 BASIC METAB OLIC PANEL potassium 3.8 mmol/ L 3.5-5. 1 normal Not Available [address] [place], [address] 06/21/2023 07:35:07 06/21/20 23 06/21/2023 BASIC METAB OLIC PANEL chloride 104 mmol/ L 98-107 normal Not Available [address] [place], [address] 06/21/2023 07:35:07 06/21/20 23 06/21/2023 BASIC METAB OLIC PANEL CO2 30.4 mmol/ L 21.0-3 2.0 normal Not Available [address] [place], [address] 06/21/2023 07:35:07 06/21/20 23 06/21/2023 BASIC METAB OLIC PANEL anion gap 7.6 mmol/ L 3-11 normal Not Available [address] [place], [address] 06/21/2023 07:35:07 06/21/20 23 06/21/2023 MAGNE SIUM magnesium 2.0 mg/dL 1.8-2. 4 normal Not Available [address] [place], [address] 06/21/2023 07:35:08 06/23/20 23 06/23/2023 hemog lobin A1C, finge rstic k HbA1C 7.4 Not Available [address], [address], 06/21/2023 07:14:10 07/13/20 23 07/13/2023 D-DIM ER D-dimer 832 NG/ml feu <500 high Not Available [address] [place], [address] 07/13/2023 17:01:10 12/01/19 24 12/01/2023 hemog lobin A1C, finge rstic k hemoglobin A1C 8.6 % <5.7 Not Available [address], [address], 12/01/2023 11:08:06 01/11/20 24 01/11/2024 PROTH ROMBI N TIME prothrombin time 11.6 sec 9.1-11 .1 high Not Available [address] [place], [address] 01/12/2024 08:20:52 01/11/20 24 01/11/2024 PROTH ROMBI N TIME INR 1.2 0.9-1. 1 high Not Available [address] [place], [address] 01/12/2024 08:20:52 01/11/20 24 01/11/2024 PTT ACTIV ATED PTT activated 30.0 sec 23.6-3 2.8 normal Not Available [address] [place], [address] 01/12/2024 08:20:53 01/11/20 24 01/11/2024 COMPR EHENS BILL METAB OLIC PANEL calcium 9.0 mg/dL 8.5-10 .1 normal Not Available [address] [place], [address] 01/12/2024 08:20:55 01/11/20 24 01/11/2024 COMPR EHENS BILL METAB OLIC PANEL glucose 135 mg/dL 74-106 high Not Available [address] [place], [address] 01/12/2024 08:20:55 01/11/20 24 01/11/2024 COMPR EHENS BILL METAB OLIC PANEL BUN 19 mg/dL 7-18 high Not Available [address] [place] [place], [address] 01/12/2024 08:20:55 01/11/20 24 01/11/2024 COMPR EHENS BILL METAB OLIC PANEL creatinine 1.3 mg/dL 0.55-1 .02 high Not Available [address] [place], [address] 01/12/2024 08:20:55 01/11/20 24 01/11/2024 COMPR EHENS BILL METAB OLIC PANEL estimated GFR 43.42 mL/min /1.73m 2 Not Available [address] [place], [address] 01/12/2024 08:20:55 01/11/20 24 01/11/2024 COMPR EHENS BILL METAB OLIC PANEL total protein 7.4 g/dL 6.4-8. 2 normal Not Available [address] [place], [address] 01/12/2024 08:20:55 01/11/20 24 01/11/2024 COMPR EHENS BILL METAB OLIC PANEL albumin 3.4 g/dL 3.4-5. 0 normal Not Available [address] [place], [address] 01/12/2024 08:20:55 01/11/20 24 01/11/2024 COMPR EHENS BILL METAB OLIC PANEL bilirubin, total 1.66 mg/dL 0.2-1. 0 high Not Available [address] [place], [address] 01/12/2024 08:20:55 01/11/20 24 01/11/2024 COMPR EHENS BILL METAB OLIC PANEL alk phos 90 U/L 46-116 normal Not Available [address] [place], [address] 01/12/2024 08:20:55 01/11/20 24 01/11/2024 COMPR EHENS BILL METAB OLIC PANEL sodium 142 mmol/ L 136-14 5 normal Not Available [address] [place], [address] 01/12/2024 08:20:55 01/11/20 24 01/11/2024 COMPR EHENS BILL METAB OLIC PANEL potassium 3.6 mmol/ L 3.5-5. 1 normal Not Available [address] [place], [address] 01/12/2024 08:20:55 01/11/20 24 01/11/2024 COMPR EHENS BILL METAB OLIC PANEL chloride 101 mmol/ L 98-107 normal Not Available [address] [place], [address] 01/12/2024 08:20:55 01/11/20 24 01/11/2024 COMPR EHENS BILL METAB OLIC PANEL CO2 30.7 mmol/ L 21.0-3 2.0 normal Not Available [address] [place], [address] 01/12/2024 08:20:55 01/11/20 24 01/11/2024 COMPR EHENS BILL METAB OLIC PANEL anion gap 10.3 mmol/ L 3-11 normal Not Available [address] [place], [address] 01/12/2024 08:20:55 01/11/20 24 01/11/2024 COMPR EHENS BILL METAB OLIC PANEL AST 24 U/L 15-37 normal Not Available [address] [place], [address] 01/12/2024 08:20:55 01/11/20 24 01/11/2024 COMPR EHENS BILL METAB OLIC PANEL ALT 26 U/L 14-59 normal Not Available [address] [place], [address] 01/12/2024 08:20:55 01/11/20 24 01/11/2024 MAGNE SIUM magnesium 1.9 mg/dL 1.8-2. 4 normal Not Available [address] [place], [address] 01/12/2024 08:20:56 01/11/20 24 01/11/2024 TSH (W/RE F FT4) TSH (w/ref FT4) 1.53 uIU/m L 0.36-3 .74 normal Not Available [address] [place], [address] 01/12/2024 08:20:56 01/11/20 24 01/11/2024 TROPO JR I troponin I < 50 NG/L < or =60 Not Available [address] [place], [address] 01/12/2024 08:20:57 01/11/20 24 01/11/2024 NT-WV OBNP nt-probnp 2893 pg/mL <300 high Not Available [address] [place], [address] 01/12/2024 08:20:57 01/11/20 24 01/11/2024 URINA LYSIS color Yellow yellow Not Available [address] [place], [address] 01/12/2024 08:21:02 01/11/20 24 01/11/2024 URINA LYSIS clarity Clear clear Not Available [address] [place], [address] 01/12/2024 08:21:02 01/11/20 24 01/11/2024 URINA LYSIS specific gravity 1.020 1.005- 1.025 normal Not Available [address] [place], [address] 01/12/2024 08:21:02 01/11/20 24 01/11/2024 URINA LYSIS pH 7.0 5-8 normal Not Available [address] [place], [address] 01/12/2024 08:21:02 01/11/20 24 01/11/2024 URINA LYSIS leukocyte esterase Negati ve negati ve Not Available [address] [place], [address] 01/12/2024 08:21:02 01/11/20 24 01/11/2024 URINA LYSIS nitrite Negati ve negati ve Not Available [address] [place], [address] 01/12/2024 08:21:02 01/11/20 24 01/11/2024 URINA LYSIS protein 100 mg/dL neg-tr gato abnormal Not Available [address] [place], [address] 01/12/2024 08:21:02 01/11/20 24 01/11/2024 URINA LYSIS glucose Negati ve mg/dL negati ve Not Available [address] [place], [address] 01/12/2024 08:21:02 01/11/20 24 01/11/2024 URINA LYSIS ketones Negati ve mg/dL negati ve Not Available [address] [place], [address] 01/12/2024 08:21:02 01/11/20 24 01/11/2024 URINA LYSIS urobilinogen 0.2 mg/dL up to 0.2 Not Available [address] [place], [address] 01/12/2024 08:21:02 01/11/20 24 01/11/2024 URINA LYSIS bilirubin Negati ve negati ve Not Available [address] [place], [address] 01/12/2024 08:21:02 01/11/20 24 01/11/2024 URINA LYSIS blood Trace- intact negati ve abnormal Not Available [address] [place], [address] 01/12/2024 08:21:02 01/11/20 24 01/11/2024 URINA LYSIS color Yellow yellow Not Available [address] [place], [address] 01/12/2024 08:21:04 01/11/20 24 01/11/2024 URINA LYSIS clarity Clear clear Not Available [address] [place], [address] 01/12/2024 08:21:04 01/11/20 24 01/11/2024 URINA LYSIS specific gravity 1.020 1.005- 1.025 normal Not Available [address] [place], [address] 01/12/2024 08:21:04 01/11/20 24 01/11/2024 URINA LYSIS pH 7.0 5-8 normal Not Available [facility] [address] [place], [address] 01/12/2024 08:21:04 01/11/20 24 01/11/2024 URINA LYSIS leukocyte esterase Negati ve negati ve Not Available [address] [place], [address] 01/12/2024 08:21:04 01/11/20 24 01/11/2024 URINA LYSIS nitrite Negati ve negati ve Not Available [address] [place], [address] 01/12/2024 08:21:04 01/11/20 24 01/11/2024 URINA LYSIS protein 100 mg/dL neg-tr gato abnormal Not Available [address] [place], [address] 01/12/2024 08:21:04 01/11/20 24 01/11/2024 URINA LYSIS glucose Negati ve mg/dL negati ve Not Available [address] [place], [address] 01/12/2024 08:21:04 01/11/20 24 01/11/2024 URINA LYSIS ketones Negati ve mg/dL negati ve Not Available [address] [place], [address] 01/12/2024 08:21:04 01/11/20 24 01/11/2024 URINA LYSIS urobilinogen 0.2 mg/dL up to 0.2 Not Available [address] [place], [address] 01/12/2024 08:21:04 01/11/20 24 01/11/2024 URINA LYSIS bilirubin Negati ve negati ve Not Available [address] [place], [address] 01/12/2024 08:21:04 01/11/20 24 01/11/2024 URINA LYSIS blood Trace- intact negati ve abnormal Not Available [address] [place], [address] 01/12/2024 08:21:04 01/11/20 24 01/12/2024 MICRO SCOPI C FINDI NGS WBC Negati ve hpf 0-5 Not Available [address] [place], [address] 01/12/2024 08:21:04 01/11/20 24 01/12/2024 MICRO SCOPI C FINDI NGS RBC 0-2 hpf 0-2 Not Available Jourdan gonzalez [address] [place], [address] 01/12/2024 08:21:04 01/11/20 24 01/12/2024 MICRO SCOPI C FINDI NGS epithelial cells Rare hpf negati ve Not Available [address] [place], [address] 01/12/2024 08:21:04 01/11/20 24 01/12/2024 MICRO SCOPI C FINDI NGS bacteria Rare hpf negati ve Not Available [address] [place], [address] 01/12/2024 08:21:04 01/11/20 24 01/12/2024 MICRO SCOPI C FINDI NGS crystals Negati ve hpf negati ve Not Available [address] [place], [address] 01/12/2024 08:21:04 01/11/20 24 01/12/2024 MICRO SCOPI C FINDI NGS mucus Negati ve negati ve Not Available [address] [place], [address] 01/12/2024 08:21:04 01/11/20 24 01/12/2024 MICRO SCOPI C FINDI NGS casts Negati ve lpf negati ve Not Available [address] [place], [address] 01/12/2024 08:21:04 01/11/20 24 01/12/2024 MICRO SCOPI C FINDI NGS C S indicated? No Not Available [address] [place], [address] 01/12/2024 08:21:04 01/12/20 24 01/12/2024 TROPO JR I troponin I < 50 NG/L < or =60 Not Available [address] [place], [address] 01/12/2024 08:21:08 01/12/20 24 01/12/2024 COMPL ETE BLOOD COUNT NO DIFF WBC 6.49 10_3/ uL 4.4-10 .8 normal Not Available [address] [place], [address] 01/12/2024 08:21:09 01/12/20 24 01/12/2024 COMPL ETE BLOOD COUNT NO DIFF RBC 5.36 10_6/ uL 3.93-5 .22 high Not Available [address] [place], [address] 01/12/2024 08:21:09 01/12/20 24 01/12/2024 COMPL ETE BLOOD COUNT NO DIFF HGB 16.5 g/dL 11.2-1 5.7 high Not Available [address] [place], [address] 01/12/2024 08:21:09 01/12/20 24 01/12/2024 COMPL ETE BLOOD COUNT NO DIFF HCT 49.4 % 36.0-4 6.0 high Not Available [address] [place], [address] 01/12/2024 08:21:09 01/12/20 24 01/12/2024 COMPL ETE BLOOD COUNT NO DIFF MCV 92 fL 80-95 normal Not Available [address] [place], [address] 01/12/2024 08:21:09 01/12/20 24 01/12/2024 COMPL ETE BLOOD COUNT NO DIFF MCH 30.8 pg 27.0-3 3.0 normal Not Available [address] [place], [address] 01/12/2024 08:21:09 01/12/20 24 01/12/2024 COMPL ETE BLOOD COUNT NO DIFF MCHC 33.4 % 32.0-3 6.0 normal Not Available [address] [place], [address] 01/12/2024 08:21:09 01/12/20 24 01/12/2024 COMPL ETE BLOOD COUNT NO DIFF RDW 13.4 % 11.7-1 4.6 normal Not Available [address] [place], [address] 01/12/2024 08:21:09 01/12/20 24 01/12/2024 COMPL ETE BLOOD COUNT NO DIFF platelet count 175 10_3/ uL 130-40 0 normal Not Available [address] [place], [address] 01/12/2024 08:21:09 01/12/20 24 01/12/2024 COMPL ETE BLOOD COUNT NO DIFF MPV 11.0 fL 8.0-11 .0 normal Not Available [address] [place], [address] 01/12/2024 08:21:09 01/12/20 24 01/12/2024 COMPR EHENS BILL METAB OLIC PANEL calcium 8.7 mg/dL 8.5-10 .1 normal Not Available [address] [place], [address] 01/12/2024 08:21:13 01/12/20 24 01/12/2024 COMPR EHENS BILL METAB OLIC PANEL glucose 138 mg/dL 74-106 high Not Available [address] [place], [address] 01/12/2024 08:21:13 01/12/20 24 01/12/2024 COMPR EHENS BILL METAB OLIC PANEL BUN 17 mg/dL 7-18 normal Not Available [address] [place], [address] 01/12/2024 08:21:13 01/12/20 24 01/12/2024 COMPR EHENS BILL METAB OLIC PANEL creatinine 1.1 mg/dL 0.55-1 .02 high Not Available [address] [place], [address] 01/12/2024 08:21:13 01/12/20 24 01/12/2024 COMPR EHENS BILL METAB OLIC PANEL estimated GFR 53.06 mL/min /1.73m 2 Not Available [address] [place], [address] 01/12/2024 08:21:13 01/12/20 24 01/12/2024 COMPR EHENS BILL METAB OLIC PANEL total protein 7.0 g/dL 6.4-8. 2 normal Not Available [address] [place], [address] 01/12/2024 08:21:13 01/12/20 24 01/12/2024 COMPR EHENS BILL METAB OLIC PANEL albumin 3.1 g/dL 3.4-5. 0 low Not Available [address] [place], [address] 01/12/2024 08:21:13 01/12/20 24 01/12/2024 COMPR EHENS BILL METAB OLIC PANEL bilirubin, total 1.55 mg/dL 0.2-1. 0 high Not Available [address] [place], [address] 01/12/2024 08:21:13 01/12/20 24 01/12/2024 COMPR EHENS BILL METAB OLIC PANEL alk phos 79 U/L 46-116 normal Not Available [address] [place], [address] 01/12/2024 08:21:13 01/12/20 24 01/12/2024 COMPR EHENS BILL METAB OLIC PANEL sodium 142 mmol/ L 136-14 5 normal Not Available [address] [place], [address] 01/12/2024 08:21:13 01/12/20 24 01/12/2024 COMPR EHENS BILL METAB OLIC PANEL potassium 3.3 mmol/ L 3.5-5. 1 low Not Available [address] [place], [address] 01/12/2024 08:21:13 01/12/20 24 01/12/2024 COMPR EHENS BILL METAB OLIC PANEL chloride 102 mmol/ L 98-107 normal Not Available [address] [place], [address] 01/12/2024 08:21:13 01/12/20 24 01/12/2024 COMPR EHENS BILL METAB OLIC PANEL CO2 30.8 mmol/ L 21.0-3 2.0 normal Not Available [address] [place], [address] 01/12/2024 08:21:13 01/12/20 24 01/12/2024 COMPR EHENS BILL METAB OLIC PANEL anion gap 9.2 mmol/ L 3-11 normal Not Available [address] [place], [address] 01/12/2024 08:21:13 01/12/20 24 01/12/2024 COMPR EHENS BILL METAB OLIC PANEL AST 24 U/L 15-37 normal Not Available [address] [place], [address] 01/12/2024 08:21:13 01/12/20 24 01/12/2024 COMPR EHENS BILL METAB OLIC PANEL ALT 19 U/L 14-59 normal Not Available [address] [place], [address] 01/12/2024 08:21:13 01/12/20 24 01/12/2024 MAGNE SIUM magnesium 1.9 mg/dL 1.8-2. 4 normal Not Available [address] [place], [address] 01/12/2024 08:21:13 01/12/20 24 01/12/2024 TROPO JR I troponin I < 50 NG/L < or =60 Not Available [address] [place], [address] 01/12/2024 08:21:14 01/13/20 24 01/13/2024 BASIC METAB OLIC PANEL calcium 8.9 mg/dL 8.5-10 .1 normal Not Available [address] [place], [address] 01/13/2024 10:46:09 01/13/20 24 01/13/2024 BASIC METAB OLIC PANEL glucose 317 mg/dL 74-106 high Not Available [address] [place], [address] 01/13/2024 10:46:09 01/13/20 24 01/13/2024 BASIC METAB OLIC PANEL BUN 26 mg/dL 7-18 high Not Available [address] [place], [address] 01/13/2024 10:46:09 01/13/20 24 01/13/2024 BASIC METAB OLIC PANEL creatinine 1.3 mg/dL 0.55-1 .02 high Not Available [address] [place], [address] 01/13/2024 10:46:09 01/13/20 24 01/13/2024 BASIC METAB OLIC PANEL estimated GFR 43.42 mL/min /1.73m 2 Not Available [address] [place], [address] 01/13/2024 10:46:09 01/13/20 24 01/13/2024 BASIC METAB OLIC PANEL sodium 136 mmol/ L 136-14 5 normal Not Available [address] [place], [address] 01/13/2024 10:46:09 01/13/20 24 01/13/2024 BASIC METAB OLIC PANEL potassium 3.6 mmol/ L 3.5-5. 1 normal Not Available [address] [place], [address] 01/13/2024 10:46:09 01/13/20 24 01/13/2024 BASIC METAB OLIC PANEL chloride 96 mmol/ L 98-107 low Not Available [address] [place], [address] 01/13/2024 10:46:09 01/13/20 24 01/13/2024 BASIC METAB OLIC PANEL CO2 29.8 mmol/ L 21.0-3 2.0 normal Not Available [address] [place], [address] 01/13/2024 10:46:09 01/13/20 24 01/13/2024 BASIC METAB OLIC PANEL anion gap 10.2 mmol/ L 3-11 normal Not Available [address] [place], [address] 01/13/2024 10:46:09 01/13/20 24 01/14/2024 PROCA LCITO JR procalcitoni n < 0.1 NG/mL Not Available [address] [place], [address] 01/14/2024 00:25:52 01/14/20 24 01/14/2024 BASIC METAB OLIC PANEL calcium 8.6 mg/dL 8.5-10 .1 normal Not Available [address] [place], [address] 01/14/2024 06:45:48 01/14/20 24 01/14/2024 BASIC METAB OLIC PANEL glucose 152 mg/dL 74-106 high Not Available [address] [place], [address] 01/14/2024 06:45:48 01/14/20 24 01/14/2024 BASIC METAB OLIC PANEL BUN 27 mg/dL 7-18 high Not Available [address] [place] [place], [address] 01/14/2024 06:45:48 01/14/20 24 01/14/2024 BASIC METAB OLIC PANEL creatinine 1.1 mg/dL 0.55-1 .02 high Not Available [address] [place], [address] 01/14/2024 06:45:48 01/14/20 24 01/14/2024 BASIC METAB OLIC PANEL estimated GFR 53.06 mL/min /1.73m 2 Not Available [address] [place], [address] 01/14/2024 06:45:48 01/14/20 24 01/14/2024 BASIC METAB OLIC PANEL sodium 138 mmol/ L 136-14 5 normal Not Available [address] [place], [address] 01/14/2024 06:45:48 01/14/20 24 01/14/2024 BASIC METAB OLIC PANEL potassium 3.2 mmol/ L 3.5-5. 1 low Not Available [address] [place], [address] 01/14/2024 06:45:48 01/14/20 24 01/14/2024 BASIC METAB OLIC PANEL chloride 100 mmol/ L 98-107 normal Not Available [address] [place], [address] 01/14/2024 06:45:48 01/14/20 24 01/14/2024 BASIC METAB OLIC PANEL CO2 31.7 mmol/ L 21.0-3 2.0 normal Not Available [address] [place], [address] 01/14/2024 06:45:48 01/14/20 24 01/14/2024 BASIC METAB OLIC PANEL anion gap 6.3 mmol/ L 3-11 normal Not Available [address] [place], [address] 01/14/2024 06:45:48 01/25/20 24 01/25/2024 HEMOG LOBIN A1C hemoglobin A1C 8.4 % <5.7 high Not Available [facility] (Registration ) [address] [place] [address] [place], [address], 01/25/2024 16:20:12 01/25/20 24 01/25/2024 COMPR EHENS BILL METAB OLIC PANEL calcium 9.4 mg/dL 8.5-10 .1 normal Not Available [address] [place], [address] 01/25/2024 16:41:29 01/25/20 24 01/25/2024 COMPR EHENS BILL METAB OLIC PANEL glucose 163 mg/dL 74-106 high Not Available [address] [place], [address] 01/25/2024 16:41:29 01/25/20 24 01/25/2024 COMPR EHENS BILL METAB OLIC PANEL BUN 30 mg/dL 7-18 high Not Available [address] [place] [place], [address] 01/25/2024 16:41:29 01/25/20 24 01/25/2024 COMPR EHENS BILL METAB OLIC PANEL creatinine 1.5 mg/dL 0.55-1 .02 high Not Available [address] [place], [address] 01/25/2024 16:41:29 01/25/20 24 01/25/2024 COMPR EHENS BILL METAB OLIC PANEL estimated GFR 36.57 mL/min /1.73m 2 Not Available [address] [place], [address] 01/25/2024 16:41:29 01/25/20 24 01/25/2024 COMPR EHENS BILL METAB OLIC PANEL total protein 7.4 g/dL 6.4-8. 2 normal Not Available [address] [place], [address] 01/25/2024 16:41:29 01/25/20 24 01/25/2024 COMPR EHENS BILL METAB OLIC PANEL albumin 3.6 g/dL 3.4-5. 0 normal Not Available [address] [place], [address] 01/25/2024 16:41:29 01/25/20 24 01/25/2024 COMPR EHENS BILL METAB OLIC PANEL bilirubin, total 1.31 mg/dL 0.2-1. 0 high Not Available [address] [place], [address] 01/25/2024 16:41:29 01/25/20 24 01/25/2024 COMPR EHENS BILL METAB OLIC PANEL alk phos 102 U/L 46-116 normal Not Available [address] [place], [address] 01/25/2024 16:41:29 01/25/20 24 01/25/2024 COMPR EHENS BILL METAB OLIC PANEL sodium 140 mmol/ L 136-14 5 normal Not Available [address] [place], [address] 01/25/2024 16:41:29 01/25/20 24 01/25/2024 COMPR EHENS BILL METAB OLIC PANEL potassium 4.3 mmol/ L 3.5-5. 1 normal Not Available [address] [place], [address] 01/25/2024 16:41:29 01/25/20 24 01/25/2024 COMPR EHENS BILL METAB OLIC PANEL chloride 101 mmol/ L 98-107 normal Not Available [address] [place], [address] 01/25/2024 16:41:29 01/25/20 24 01/25/2024 COMPR EHENS BILL METAB OLIC PANEL CO2 29.7 mmol/ L 21.0-3 2.0 normal Not Available [address] [place], [address] 01/25/2024 16:41:29 01/25/20 24 01/25/2024 COMPR EHENS BILL METAB OLIC PANEL anion gap 9.3 mmol/ L 3-11 normal Not Available [address] [place], [address] 01/25/2024 16:41:29 01/25/20 24 01/25/2024 COMPR EHENS BILL METAB OLIC PANEL AST 24 U/L 15-37 normal Not Available [address] [place], [address] 01/25/2024 16:41:29 01/25/20 24 01/25/2024 COMPR EHENS BILL METAB OLIC PANEL ALT 40 U/L 14-59 normal Not Available [address] [place], [address] 01/25/2024 16:41:29 01/25/20 24 01/26/2024 LORENZA DONALDSON,IN TACT parathyroid hormone,inta ct 104 pg/mL 19-88 abnormal Not Available [address] [place], [address] 01/26/2024 09:19:39 06/19/20 23 06/19/2023 elect rafy thompson am EKG PATIEN T NAME: Austin Aden UNIT #: [id number] [facility] ER: Desiree Whitfield M.D. ACCOUN T #: [id number] PRIMAR Y CARE PROVID ER: DANILO FAY,ABB Y DATE/T KENDRA OF SERVIC E: 0556 : 1950 PERFOR DANN LOCATI ON: ER ------ ------ --- APPROV ED REPORT ------ ------ -- Exam: Restin g ECG Reason for Exam: chest pain Patien t Locati on: E HR:155 bpm ECG Measur ements Heart Rate 155 AXIS WV 94 P 171 QRSd 82 QRS 77 QT 302 T [id number] 1964 QTc 485 Conclu roman Atrial fibril lation with rapid ventri cular respon se. Scopin g ST depres roman in multip le leads like refelc ts a rate relate d renan parnell on abnomo rmalit y ------ ------ ------ ------ ------ ------ ------ ------ ------ ------ ------ ------ ------ ------ ------ ------ ---- ------ - E-Sign Date: E-Sign Time: [id number] [facility] [address] [facility] , [place], [address] 06/22/2023 10:01:44 06/19/2006/19/2023 erasto car Name: Austin Aden Unit #: [id number] Loc: ER [facility] ng Provid er: Acckyaw t #: [id number] Status : REG ER Primar y Care Provid er: Heath Carrasco Date of Exam: Sex: F : 1950 Age: 72 Exam(s ) PROCED URE INFORM ATION: Exam: XR Chest Exam date and time: 023 6:32 AM Age: 72 years old Clinic al indica tion: Shortn ess of breath and other: Shortn ess of breath , atrial fibril lation TECHNI QUE: Imagin g protoc ol: Radiol ogic exam of the chest. Views: 1 view. COMPAR LUCY: CT CHEST WO 2021 5:49 PM FINDIN GS: Lungs: No acute abnorm ality detect ed within the right lung. Majori ty of left lung is partia lly obscur ed by extran eous artifa ct. No dense consol idatio n suspec thelma in the left lung. Mass presen t in the convict guard ior right lung. Pleura l spaces : No signif icant pleura l fluid. No pneumo thorax detect ed. Heart/ Medias tinum: Heart size appear s stable compar ed to CT prepress stripper image from 2021. No signif icant pulmon michael vascul ar conges tion. apex on 2021 is not readil y appare nt on this portab le radiog raph. Bones/ joints : Surgic al absenc e of convict guard ior left 4th rib, simila r to prior exam. IMPRES ROMAN: No defini te acute cardio pulmon michael abnorm ality on portab le chest radiog raph. Signif icant portio ns of the left lung are partia lly obscur ed by extran eous artifa ct. Dictat ed and Authen ticate d by: Jose Moscoso MD. Orderi ng:P.V PIERO uriostegui MD Access ion#=1 [id number] Ordere d By: CC: ------ ------ ------ ------ ------ ------ ------ ------ ------ ------ ------ ------ ---- Dictat ed By: Report s vrad [id number] Transc ribed By: Di Merge 0632 This is privil eged, confid ential inform ation intend ed only for the provid er named. Any use or distri bution by any person other than this provid er is strict ly prohib ited. If you receiv e this report in error, please notify us immedi ately at [phone] and return the origin al report to us at the addres s above. Thank- you. [email or web address] [address], [place], [address] 06/22/2023 10:01:43 06/19/20 23 06/19/2023 ED visit note ED Visit Note PATIEN T NAME: Jamari richardsonAustin Early UNIT #: [id number] ADMITT ING PROVID ER: Desiree Whitfield M.D. ACCOUN T #: [id number] PRIMAR Y CARE PROVID ER: CAMPBELL CARRASCO NP DATE OF ADMIT: 1 3 : 1950 Discha rge Plan Discha rge Detail s Chief Compla int: Chest Pain Primar y Care Provid er: Heath Carrasco ED Provid er: Vacik, Jonath an Home Meds and New Rx's Prescr iption s: No Action Novoli n R FlexPe n 100 unit/m L (3 mL) insuli n pen 24 unit subcut DAILY metopr olol succin ate 25 mg tablet extend ed releas e 24 hr 50 mg PO DAILY Rx Instru ctions : takes with 100 mg for total 150 mg daily fluoro uracil [Efude x] 5 % cream 1 applic topica l BID 21 Days Qty: 40 0RF aspiri n [Adult Aspiri n Regime n] 81 mg tablet ,delay ed releas e (DR/EC ) 81 mg PO DAILY Qty: 90 0RF metopr olol succin ate 100 mg tablet extend ed releas e 24 hr 100 mg PO DAILY Qty: 90 6RF furose mide [Lasix ] 40 mg tablet 60 mg PO DAILY diltia zem HCl 120 mg capsul e,exte nded releas e 24 hr 120 mg PO DAILY Qty: 90 3RF Victoz a 3-Abdulaziz 0.6 mg/0.1 mL (18 mg/3 mL) pen inject or 0.6 mg subcut HS Eliqui s 5 MG tablet 5 mg PO BID Qty: 60 gaye ukast 10 mg tablet 10 mg PO HS betame thason e león te 0.1 % ointme nt 1 applic topica l DAILY PRN nitrog lyceri n 0.4 MG tablet , sublin gual 0.4 mg Sublin gual PER PROTOC OL Rx Instru ctions : needs script renewe d cholec alcife rol (vitam in D3) 1,000 UNITS tablet 1,000 units PO DAILY calciu m carbon ate 430 mg calciu m (1,000 mg) Tablet ,Chewa ble 1,000 mg PO DAILY lisino pril 10 mg tablet 10 mg PO DAILY Spiriv a Respim at 1.25 mcg/ac tuatio n mist 2 spray INHALA TION DAILY Medica l Mari on Making The rochelle car was seen and examin ed. She was initia lly in distre ss on arriva l to the emerge ncy room but her right should er plain improv ed with her rate was contro lled from the 170s down to closer to 100 bpm. The patien t receiv ed 20 mg of diltia zem as a bolus and is on a 10 mg/h drip which has contro lled her close 200. The rochelle car did have a flurry of either atrial fibril lation or aberra nt conduc tion throug h an altern ative pathwa y and at least one attemp t to conver t into sinus. Howeve r, the patiduane t popped back into the atrial fibril lation . Her oxygen satura tion has been in the mid 90s at rest the entire time she has been here. Lungs do not sound partic ularly like conges tive heart failur e, althou gh there was some increa sed cephal izatio n and densit y to her inters titial tissue on her chest x-ray. The rochelle car will requir e hospit alizat ion for rate contro l and serial myocar dial enzyme s to exclud e myocar dial ischem ia as an etiolo gy for her rapid atrial fibril lation . Dispos ition will depend on discov alexander of pathol ogy, bed availa bility if an ICU is requir ed for the cardiz em drip, and improv ement with sympto ms here in the emerge ncy room. HPI Genera l Date/T kendra Provid er Initia thelma Docume ntatio n: 06:07 . HPI Narrat bill: The rochelle car is a 72-yea r-old female , with a past medica l histor y signif icant for atrial fibril lation and conges tive heart failur e, status postmy ocardi al infarc tion, who presen ts to the emerge nvy depart ment this radha g compla ining of right should er pain which began at around 7:30 PM yester day radha holguin. The rochelle car was concer елена becaus e in the past she had had simila r sympto ms to her prior heart attack . On arriva l to the emerge ncy room, the rochelle car has a heart rate in the 160s in rapid atrial fibril lation . She tells me that she is in chron ic A-fib but after a discus roman it is not entire ly clear if this is the case or if she has paroxy smal atrial fibril lation . She is curren tly taking apixab an for antico agulat ion. She tells me that she is chron ically short of breath . When asked if she has more short of breath than usual she tells me she does not. Relate d Data Home Medica tions Medica tion Instru ctions Record ed Confir med nitrog lyceri n 0.4 mg sublin gual 0.4 mg sublin gual PER PROTOC OL tablet cholec alcife rol (vitam in D3) 25 1,000 units PO DAILY mcg (1,000 unit) tablet apixab an 5 mg tablet (Eliqu is) 5 mg PO BID #60 tab-ca ps calciu m carbon ate 430 mg calciu m 1,000 mg PO DAILY (1,000 mg) chewab le tablet aspiri n 81 mg tablet ,delay ed 81 mg PO DAILY #90 tabs releas e (Adult Aspiri n Regime n) metopr olol succin ate 100 mg 100 mg PO DAILY #90 tabs tablet ,exten ded releas e 24 hr gaye ukast 10 mg tablet 10 mg PO HS insuli n regula r human 100 unit/m L 24 unit subcut DAILY (3 mL) subcut aneous pen (Novol in R FlexPe n) betame thason e león te 0.1 % 1 applic topica l DAILY PRN topica l ointme nt liragl utide 0.6 mg/0.1 mL (18 mg/3 0.6 mg subcut HS mL) subcut aneous pen inject or (Victo za 3-Abdulaziz) diltia zem HCl 120 mg capsul e,24 120 mg PO DAILY #90 caps hr,ext ended releas e furose mide 40 mg tablet (Lasix ) 60 mg PO DAILY lisino pril 10 mg tablet 10 mg PO DAILY metopr olol succin ate 25 mg 50 mg PO DAILY tablet ,exten ded releas e 24 hr tiotro pium bromid e 1.25 2 spray inhala tion DAILY mcg/ac tuatio n mist for inhala tion (Spiri va Respim at) fluoro uracil 5 % topica l cream 1 applic topica l BID 3 weeks #40 (Efude x) grams Previo us Rx's Medica tion Instru ctions Record ed aspiri n 81 mg tablet ,delay ed 81 mg PO DAILY #90 tabs releas e (Adult Aspiri n Regime n) metopr olol succin ate 100 mg 100 mg PO DAILY #90 tabs tablet ,exten ded releas e 24 hr diltia zem HCl 120 mg capsul e,24 120 mg PO DAILY #90 caps hr,ext ended releas e fluoro uracil 5 % topica l cream 1 applic topica l BID 3 weeks #40 (Efude x) grams Allerg ies Allerg y/AdvR eac Type Severi ty Reacti on Status Date / Time clopid ogrel [From Plavix ] Allerg y Unknow n Verifi ed 09:05 iohexo l [From Omnipa que 140] Allerg y Skin Rash Verifi ed 09:05 pseudo ephedr ine Allerg y Verifi ed 09:05 [From Sudafe d] Sulfa (Sulfo namide Allerg y Verifi ed 09:05 Antibi otics) erythr omycin base AdvRea c GI Verifi ed 09:05 [Eryth romyci n Base] metal Allerg y Interm ediate Skin Rash Uncode d 09:05 Genera l Stated Compla int: Chest Pain JOSE DE JESUS: 2 PFSH All Active Proble ms (Updat ed @ 10:11 by Nelli Puentes or) COPD (chron ic obstru ctive pulmon michael diseas e) (Chron ic) Atrial fibril lation (Chron ic ) Hypert ension (Chron ic) CAD (coron michael artery diseas e) (Chron ic) a. drug elutin g stents Obesit y (Chron ic) BMI 33.0-3 3.9,ad ult (Chron ic) Osteoa rthrit is (Chron ic) H/O carpal tunnel syndro me (Chron ic) Chroni c low back pain (Chron ic) H/O hyperc alcemi a (Chron ic) H/O hyperp arathy roidis m (Chron ic) a. Surger y to remove adenom as Osteop enia (Chron ic) Psoria sis (Chron ic) Elevat ed hemato crit (Chron ic) Elevat ed hemogl obin (Chron ic) Impair ed fastin g glucos e (Chron ic) Metabo lic syndro me (Chron ic) a. trigly ceride s greate r than 300 and HDL less than 30 Hypert ensive CKD (chron ic kidney diseas e) (Chron ic) A. probab ly stage 1 or 2 B. baseli ne creati nine 1.1 to 1.2 Sepsis (Acute ) Predia betes (Acute ) Erythr ocytos is (Chron ic) Abnorm al LFTs (Acute ) Hypoma gnesem ia (Acute ) Acute CHF (Acute ) Discha rge planni ng issues (Acute ) DVT prophy laxis (Acute ) Modera te pulmon michael arteri al systol ic hypert ension (Chron ic) Acute renal insuff icienc y (Acute ) Post-m enopau celeste bleedi ng (Acute ) Chroni c atrial fibril lation with rapid ventri cular respon se (Acute ) Pneumo lino (Acute ) Acute kidney injury superi mposed on chroni c kidney diseas e (Acute ) Periph eral neurop athy (Acute ) Lung nodule (Acute ) CHF (conge stive heart failur e) (Chron ic) Exerti onal shortn ess of breath (Acute ) Diabet es mellit us (Chron ic) Fatigu e (Acute ) Increa sed sputum produc tion (Acute ) Snorin g (Acute ) Season al allerg ies (Acute ) Hyperl ipidem ia (Acute ) Skin lesion (Acute ) Emphys justen lung (Acute ) Thyroi d nodule (Acute ) Medica l Histor y (Updat ed @ 10:11 by Nelli Puentes or) Degene rative joint diseas e of right hip Catara cts, bilate ral Trigge r finger , right index finger Rosace a Leg pain, right Loss of balanc e 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 CKD (chron ic kidney diseas e) Pulmon michael hypert ension Muscle spasm Rhinit is PONV (posto perati ve nausea and vomiti ng) Acute bronch itis Surgic al Histor y (Revtue @ 11:39 by Shalonda Richardson MD) H/O benign neopla sm resect ed Hx of cardia c cath 2 stents H/O parath yroide ctomy s/p 2 stents Family Histor y (Revtue @ 11:39 by Shalonda Richardson MD) Other Heart diseas e Social Histor y (Revtue @ 11:39 by Shalonda Richardson MD) 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 Exam Resp Effort Inspec tion: normal respir atory effort Auscul tation : clear to auscul tation bilate rally Cardio Rate: regula r rate Rhythm : regula r rhythm Neuro Crania l Nerves : CN's II-XI intact bilate rally Speech : speech normal Motor: muscle tone normal throug hout and streng th 5 throug hout Sensor y Exam: no sensor y defici ts noted Course Vital Signs Vital signs: Vital Signs Pulse 168 H 05:51 Respir atory Rate 15 05:51 Blood Pressu re 156/12 5 H 05:51 Pulse Oximet ry 95 05:51 Pulse 83 06:24 Pulse 108 H 06:30 Respir atory Rate 15 06:30 Respir atory Effort Normal , Short of Breath 05:59 Respir atory Depth Normal 05:59 Respir atory Patter n Normal 05:59 Blood Pressu re 136/76 06:24 Blood Pressu re Mean 97 06:24 Blood Pressu re Positi on Supine 05:51 Pulse Oximet ry 92 06:30 Oxygen Delive ry Method Room Air 05:51 Oxygen Flow Rate 0 05:51 Pain Level 8 05:51 Lab/Te st Result s Lab/Te st Result s: Labora tory Tests Range/ Units 05:55 WBC (4.4-1 0.8) 10 3/uL 10.91 H RBC (3.93- 5.22) 10 6/uL 5.71 H Hgb (11.2- 15.7) g/dL 17.6 H Hct (36.0- 46.0) % 52.1 H MCV (80-95 ) fL 91 MCH (27.0- 33.0) pg 30.8 MCHC (32.0- 36.0) % 33.8 RDW (11.7- 14.6) % 13.7 Plt Count (130-4 00) 10 3/uL 291 MPV (8.0-1 1.0) fL 11.1 H Immatu re Gran % 0.3 Neutro phils % 70.0 Lympho cytes % 17.0 Monocy isidra % 10.7 Eosino phils % 1.5 Basoph ils % 0.5 Nuclea thelma RBC % (0.0-0 .3) % 0.0 Absolu te Neutro phils (1.2-6 .7) 10 3/uL 7.64 H Absolu te Lympho cytes (1.2-3 .4) 10 3/uL 1.85 Absolu te Monocy isidra (0.1-0 .8) 10 3/uL 1.17 H Absolu te Eosino phils (0.0-0 .7) 10 3/uL 0.16 Absolu te Basoph ils (0.0-0 .2) 10 3/uL 0.05 cc: DANILO FAY,CAMPBELL Y ------ ------ ------ ------ ------ ------ ------ ------ ------ ------ ------ --- Dictat ed by: Desiree Whitfield M.D. Dictat ed: Time: 0 642 Date: 0745 Date: Date: Transc ribed Date: Transc ribed Time: 641 By: YADY This is privil eged, confid ential inform ation, intend ed only for the provid er named. Any use or distri bution by any person other than this provid er is strict ly prohib ited. If you receiv e this report in error, please notify us immedi ately at [phone] and return the origin al report to us at the addres s above. Thank you. [facility] [address], [place], [address] 06/22/2023 10:01:43 06/19/2006/19/2023 ED progr ess note ED Progre ss Note PATIEN T NAME: Jamari richardsonAustin Early UNIT #: [id number] ADMITT ING PROVID ER: Marlin Marquez M.D. ACCOUN T #: [id number] PRIMAR Y CARE PROVID ER: DANILO FAY,CAMPBELL Y DATE OF ADMIT: 1 3 : 1950 Date of servic e: Time of Servic e: 07:45 Medica l Mari on Making This patien t was signed out to me. Please see previo us notes for H P and initia l eval. In brief, 72yo F with hx of afib presen ting in afib with RVR, rate 160's- 170's. Receiv ed 20mg diltia zem follow ed by dilt gtt at 10, rate curren tly in 80's. Initia lly tropon in negati ve. Plan for admiss ion vs transf er pendin g bed availa bility . ICU bed availa ble at [facility]; discus sed with hospit alist design center consultant and accept ed. Awaiti ng transf er to the unit. Discha rge Plan Dispos ition Patien t Dispos ition: Admit to [facility] Condit ion: Seriou s Discha rge Detail s Chief Compla int: [facility] al Impres roman: Atrial fibril lation , Tachyc ardia Primar y Care Provid er: Heath Carrasco ED Provid er: Marlin Marquez Home Meds and New Rx's Prescr iption s: No Action Novoli n R FlexPe n 100 unit/m L (3 mL) insuli n pen 24 unit subcut DAILY metopr olol succin ate 25 mg tablet extend ed releas e 24 hr 50 mg PO DAILY Rx Instru ctions : takes with 100 mg for total 150 mg daily fluoro uracil [Efude x] 5 % cream 1 applic topica l BID 21 Days Qty: 40 0RF aspiri n [Adult Aspiri n Regime n] 81 mg tablet ,delay ed releas e (DR/EC ) 81 mg PO DAILY Qty: 90 0RF metopr olol succin ate 100 mg tablet extend ed releas e 24 hr 100 mg PO DAILY Qty: 90 6RF furose mide [Lasix ] 40 mg tablet 60 mg PO DAILY diltia zem HCl 120 mg capsul e,exte nded releas e 24 hr 120 mg PO DAILY Qty: 90 3RF Victoz a 3-Abdulaziz 0.6 mg/0.1 mL (18 mg/3 mL) pen inject or 0.6 mg subcut HS Eliqui s 5 MG tablet 5 mg PO BID Qty: 60 gaye ukast 10 mg tablet 10 mg PO HS betame thason e león te 0.1 % ointme nt 1 applic topica l DAILY PRN nitrog lyceri n 0.4 MG tablet , sublin gual 0.4 mg Sublin gual PER PROTOC OL Rx Instru ctions : needs script renewe d cholec alcife rol (vitam in D3) 1,000 UNITS tablet 1,000 units PO DAILY calciu m carbon ate 430 mg calciu m (1,000 mg) Tablet ,Chewa ble 1,000 mg PO DAILY lisino pril 10 mg tablet 10 mg PO DAILY Spiriv a Respim at 1.25 mcg/ac tuatio n mist 2 spray INHALA TION DAILY cc: DANILO FAYCAMPBELL ------ ------ ------ ------ ------ ------ ------ ------ ------ ------ ------ --- Dictat ed by: Marlin Marquez M.D. Dictat ed: Time: 745 Date: 836 Date: Date: Transc ribed Date: Transc ribed Time: 745 By: GIOVANY This is privil eged, confid ential inform ation, intend ed only for the provid er named. Any use or distri bution by any person other than this provid er is strict ly prohib ited. If you receiv e this report in error, please notify us immedi perry at and return the origin al report to us at the addres s above. Thank you. [email or web address] [facility] [address], [place], [address] 06/22/2023 10:01:45 06/19/20 23 06/19/2023 vrad repor josep car Name: Austin Aden D Unit #: [id number] Loc: ICU Orderi ng Provid er: Accoun t #: [id number] Status : ADM IN Primar y Care Provid er: Heath Carrasco Date of Exam: Sex: F : 1950 Age: 72 Exam(s ) PROCED URE INFORM ATION: Exam: XR Chest Exam date and time: 023 11:10 AM Age: 72 years old Clinic al indica tion: Abnorm al findin gs; Rochelle t HX: ? Pna/ch f: Artifa ct on origin al cxr TECHNI QUE: Imagin g protoc ol: Radiol ogic exam of the chest. Views: 1 view. COMPAR LUCY: CR XR PORTAB LE CHEST AP 023 6:32 AM FINDIN GS: Lungs: No focal pulmon michael consol idatio n detect ed. Left lung is better visual ized on the curren t study follow ing remova l of the extran eous artifa ct that obscur es portio ns of the left lung on the prior exam. Pleura l spaces : No signif icant pleura l fluid. No pneumo thorax detect ed. Heart/ Medias tinum: Heart size is stable . There is no pulmon michael vascul ar conges tion or other overt eviden ce of CHF. Bones/ joints : No obviou s acute abnorm ality. IMPRES ROMAN: No acute cardio pulmon michael abnorm ality detect ed on AP portab le chest radiog raph. Dictat ed and Authen ticate d by: Jose Moscoso MD. Orderi ng:Lyle Cortes MD Access ion#=[id number] Ordere d By: CC: ------ ------ ------ ------ ------ ------ ------ ------ ------ ------ ------ ------ ---- Dictat ed By: Report s vrad [id number] [id number] Transc ribed By: Selin Merge 1110 This is privil eged, confid ential inform ation intend ed only for the provid er named. Any use or distri bution by any person other than this provid er is strict ly prohib ited. If you receiv e this report in error, please notify us immedi ately at and return the origin al report to us at the addres s above. Thank- you. [email or web address] [facility] [place], [address] 06/22/2023 10:01:46 06/19/20 23 06/19/2023 histo ry physi tutu exami natio n HISTOR Y PHYSIC AL EXAMIN ATION PATIEN T NAME: Austin Aden UNIT #: [id number] ADMITT ING PROVID ER: Sophia Langford M.D. ACCOUN T #: [id number] PRIMAR Y CARE PROVID ER: YOUNG ASSEMBLY LINE SUPERVISOR,ABB Y DATE OF ADMIT: 1 [birth year] : 1950 Date of servic e: Time of Servic e: 10:00 Assess ment and Plan Assess ment and plan (1) Atrial fibril lation with rapid ventri cular respon se: Status : Acute Assess ment and plan: I suspec t this was trigge red by the URI. The rates are now under contro l. WIll monito r the patien t over the next 24 hours on home doses of her medica tions. Will titrat e the medica tions as needed . Contin ue apixab an. Obtain a repeat echoca rdiogr am. (2) Right should er pain: Status : Resolv ed Assess ment and plan: I suspec t this was an angina l equiva lent. Will contin ue home asa + antico agulat ion, rate contro l, and obtain an echoca rdiogr am lookin g for wall motion abnorm alitie s. Monito r on tele. Tropon ins and EKG negati ve for acute ischem ia so far. (3) URI (upper respir atory infect ion): Status : Acute Assess ment and plan: Tested negati ve for FLUVID -19. CXR negati ve. Procal citoni n negati ve. No indica tion for abx. Will treat sympto matica lly should sympto ms be clinic ally signif icant. (4) CAD (coron michael artery diseas e): Status : Chroni c Assess ment and plan: No eviden ce of ACS on this admiss ion, but as above - concer n for angina . Consid er outpat ient ishcem ic w/u. (5) Pulmon michael hypert ension : Assess ment and plan: Contin ue outpat ient diuret ics. The patien t does not use a CPAP for her JESICA. (6) DVT prophy laxis: Status : Acute Assess ment and plan: ON therap eutic apixab an (7) Discha rge planni ng issues : Status : Acute Assess ment and plan: DNR/DN I, as verifi ed with the rochelle t. Histor y of Tien carter Histor y of Tien carter Chief Compla int: R should er pain Narrat bill: Ms Jamari richardson is a 72 year old female with PMHx of CAD s/p WI, Afib on cardiz em/met oprolo l/apix aban, CHFpEF (LVEF 50-55% on echo 3) as well as pulmon michael hypert ension , non-ox ygen depend ent COPD, JESICA not on CPAP, NSCLC s/p SBRT ([facility] ) and a questi on of thyroi d malign rose, curren tly under invest damien gutierrez, who presen thelma to [facility] ED c/o R should er pain that starte d yester day at around 9 pm and had persis thelma. The rochelle t was concer елена about this pain becaus e this is the kind of pain she had when she had her heart attack , she stated , so she came to the hospit al. The rochelle car also states that since Tuesday , 7 days ago, she had been having upper respir atory sympto ms (runny nose, cough produc tive of green sputum , but no f/c/so re throat /worse jenn shortn ess of breath from her baseli ne). As of yester day, those sympto ms were better , and the cough is no longer produc tive. A home COVID- 19 test was negati ve. Yester day, the rochelle t notice d a knot in her R upper back and she was puttin g heat on it at home to try to help the pain. Howeve r, then the R should er pain starte d and the patiduane t could not sleep becaus e of it. The patiduane t specif ically denies chest pain, palpit ations , dizzin ess, nausea , blood in stool or urine. She states she never feels when her HR is rapid. She states she had not missed any doses of her medica tions. On arriva l to the ED, the rochelle car was found to be in Rapid Afib with HR in 160s-1 70s. She receiv ed a bolus of 20 mg of IV cardiz em follow ed by a cardiz em gtt with a signif icant improv ement of her heart rates as well as resolu tion of her R should er pain. Her first tropon in and EKG were negati ve for acute ischem ia. A hospit alist admiss ion to the ICU was reques thelma for contin ued care. The patien t states she is DNR/DN I. Review of System s All system s review ed are unrema rkable except as noted in HPI and below PFSH All Active Proble ms (Updat ed @ 14:01 by Sophia Langford MD) URI (upper respir atory infect ion) (Acute ) Atrial fibril lation with rapid ventri cular respon se (Acute ) Tachyc ardia (Acute ) COPD (chron ic obstru ctive pulmon michael diseas e) (Chron ic) Atrial fibril lation (Chron ic ) Hypert ension (Chron ic) CAD (coron michael artery diseas e) (Chron ic) a. drug elutin g stents Obesit y (Chron ic) BMI 33.0-3 3.9,ad ult (Chron ic) Osteoa rthrit is (Chron ic) H/O carpal tunnel syndro me (Chron ic) Chroni c low back pain (Chron ic) H/O hyperc alcemi a (Chron ic) H/O hyperp arathy roidis m (Chron ic) a. Surger y to remove adenom as Osteop enia (Chron ic) Psoria sis (Chron ic) Elevat ed hemato crit (Chron ic) Elevat ed hemogl obin (Chron ic) Impair ed fastin g glucos e (Chron ic) Metabo lic syndro me (Chron ic) a. trigly ceride s greate r than 300 and HDL less than 30 Hypert ensive CKD (chron ic kidney diseas e) (Chron ic) A. probab ly stage 1 or 2 B. baseli ne creati nine 1.1 to 1.2 Sepsis (Acute ) Predia betes (Acute ) Erythr ocytos is (Chron ic) Abnorm al LFTs (Acute ) Hypoma gnesem ia (Acute ) Acute CHF (Acute ) Discha rge planni ng issues (Acute ) DVT prophy laxis (Acute ) Modera te pulmon michael arteri al systol ic hypert ension (Chron ic) Acute renal insuff icienc y (Acute ) Post-m enopau celeste bleedi ng (Acute ) Chroni c atrial fibril lation with rapid ventri cular respon se (Acute ) Pneumo lino (Acute ) Acute kidney injury superi mposed on chroni c kidney diseas e (Acute ) Periph eral neurop athy (Acute ) Lung nodule (Acute ) CHF (conge stive heart failur e) (Chron ic) Exerti onal shortn ess of breath (Acute ) Diabet es mellit us (Chron ic) Fatigu e (Acute ) Increa sed sputum produc tion (Acute ) Snorin g (Acute ) Season al allerg ies (Acute ) Hyperl ipidem ia (Acute ) Skin lesion (Acute ) Emphys justen lung (Acute ) Thyroi d nodule (Acute ) Medica l Histor y (Updat ed @ 14:01 by Sophia Langford MD) Degene rative joint diseas e of right hip Catara cts, bilate ral Trigge r finger , right index finger Rosace a Leg pain, right Loss of balanc e 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 CKD (chron ic kidney diseas e) Pulmon michael hypert ension Muscle spasm Rhinit is PONV (posto perati ve nausea and vomiti ng) Acute bronch itis Surgic al Histor y (Revie tue @ 11:39 by Shalonda Richardson MD) H/O benign neopla sm resect ed Hx of cardia c cath 2 stents H/O parath yroide ctomy s/p 2 stents Family Histor y (Revie tue @ 11:39 by Shalonda Richardson MD) Other Heart diseas e Social Histor y (Revie tue @ 11:39 by Shalonda Ricahrdson MD) 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 Meds Allerg ies and Home Medica tions Allerg ies Allerg y/AdvR eac Type Severi ty Reacti on Status Date / Time clopid ogrel [From Plavix ] Allerg y Unknow n Verifi ed 07:35 iohexo l [From Omnipa que 140] Allerg y Skin Rash Verifi ed 07:35 pseudo ephedr ine Allerg y Verifi ed 07:35 [From Sudafe d] Sulfa (Sulfo namide Allerg y Verifi ed 07:35 Antibi otics) erythr omycin base AdvRea c GI Verifi ed 07:35 [Eryth romyci n Base] metal Allerg y Interm ediate Skin Rash Uncode d 07:35 Home Medica tions Medica tion Instru ctions Record ed Confir med Type nitrog lyceri n 0.4 mg sublin gual 0.4 mg sublin gual PER PROTOC OL Histor y tablet cholec alcife rol (vitam in D3) 25 1,000 units PO DAILY Histor y mcg (1,000 unit) tablet apixab an 5 mg tablet (Eliqu is) 5 mg PO BID #60 tab-ca ps Histor y calciu m carbon ate 430 mg calciu m 1,000 mg PO DAILY Histor y (1,000 mg) chewab le tablet aspiri n 81 mg tablet ,delay ed 81 mg PO DAILY #90 tabs Rx releas e (Adult Aspiri n Regime n) metopr olol succin ate 100 mg 100 mg PO DAILY #90 tabs Rx tablet ,exten ded releas e 24 hr gaye ukast 10 mg tablet 10 mg PO HS Histor y betame thason e león te 0.1 % 1 applic topica l DAILY PRN Histor y topica l ointme nt liragl utide 0.6 mg/0.1 mL (18 mg/3 0.6 mg subcut HS Histor y mL) subcut aneous pen inject or (Victo za 3-Abdulaziz) diltia zem HCl 120 mg capsul e,24 120 mg PO DAILY #90 caps Rx hr,ext ended releas e furose mide 40 mg tablet (Lasix ) 60 mg PO DAILY Histor y lisino pril 10 mg tablet 10 mg PO DAILY Histor y tiotro pium bromid e 1.25 2 spray inhala tion DAILY Histor y mcg/ac tuatio n mist for inhala tion (Spiri va Respim at) fluoro uracil 5 % topica l cream 1 applic topica l BID 3 weeks #40 Rx (Efude x) grams insuli n NPH isoph U-100 human 100 24 unit subcut DAILY Histor y unit/m L (3 mL) subcut aneous pen (Novol in N FlexPe n) metopr olol succin ate 50 mg 50 mg PO DAILY Histor y tablet ,exten ded releas e 24 hr Exam Narrat bill Exam Narrat bill: Genera l: Pleasa nt obese Caucas ashley female who is Sittin g up comfor tably in bed, A Ox3, no dyspne a/tach ypnea/ cyanos is on RA, HR 89 on the monito r (Afib) Neurol ogical : A Ox3, no focal defici ts Psychi atric: Approp riate speech patter n/cont ent Skin: Visibl e skin intact HEENT: Atraum atic, normoc ephali c, EOMI, dry MM, clear oropha rynx, no subman dibula r or cervic al lympha denopa thy, ?goite r, no JVD Cardio vascul ar: irregu larly irregu lar rhythm , no m/r/g Lungs: CTAB Gastro intest inal: soft, nonten marita, nondis tended Genito urinar y: deferr ed Extrem ities: trace edema BLEs, +1 pedal pulses B, no c/c Result s Imagin g Additi onal studie s: EKG #1: Afib, HR 155, nonspe cific ST-T change s EKG #2: Afib, HR 80, nonspe cific ST-T change s CXR #1: No defini te acute cardio pulmon michael abnorm ality on portab le chest radiog raph. Signif icant portio ns of the left lung are partia lly obscur ed by extran eous artifa ct. CXR #2: No acute cardio pulmon michael abnorm ality detect ed on AP portab le chest radiog raph. Labs 05:55 05:55 Labs: Labora tory Result s - last 24 hr 05:55 WBC 10.91 H RBC 5.71 H Hgb 17.6 H Hct 52.1 H MCV 91 MCH 30.8 MCHC 33.8 RDW 13.7 Plt Count 291 MPV 11.1 H Immatu re Gran % 0.3 Neutro phils % 70.0 Lympho cytes % 17.0 Monocy isidra % 10.7 Eosino phils % 1.5 Basoph ils % 0.5 Nuclea thelma RBC % 0.0 Absolu te Neutro phils 7.64 H Absolu te Lympho cytes 1.85 Absolu te Monocy isidra 1.17 H Absolu te Eosino phils 0.16 Absolu te Basoph ils 0.05 Sodium 140 Potass ium 3.5 Chlori de 101 Carbon Dioxid e 31.2 Anion Gap 7.8 BUN 22 H Creati nine 1.3 H Est GFR (CKD-E PI 2020) 43.69 Glucos e 171 H Calciu m 9.7 Magnes ium 2.1 Total Biliru bin 1.0 AST 28 ALT 30 Alkali ne Phosph atase 116 Tropon in I < 50 NT-Pro -B Natriu ret Pep 1489 H Total Protei n 8.1 Albumi n 3.3 L Last Vital Signs Temp 36.3 C L 09:16 Pulse 84 09:16 Resp 16 09:16 BP 129/88 09:16 Pulse Ox 94 09:16 Time Spent Time spent with Patien t: 55-74 minute s Time was spent: prepar ing to see the patien t(eg.r eview tests) , obtain ing and/or review ing separa netta palaciosisto ry, orderi ng medica tions, tests, proced ures, referr ing, commun icatin g with other health care profes sional s, indepe ntentl y interp reting result s, counse ling the patien t and care [facility] cc: DANILO FAY,ABB Y ------ ------ ------ ------ ------ ------ ------ ------ ------ ------ ------ --- Dictat ed by: PRIMITIVO ALY,MARNIE Marr Dictat ed: Time: 103 2 Date: 1403 Date: Date: Transc ribed Date: Transc ribed Time: 1032 By: TEJAL This is privil eged, confid ential inform ation, intend ed only for the provid er named. Any use or distri bution by any person other than this provid er is strict ly prohib ited. If you receiv e this report in error, please notify us immedi ately at [phone] and return the origin al report to us at the addres s above. Thank you. [email or web address] [place], [address] 06/22/2023 10:01:45 06/19/20 23 06/19/2023 x-ray imagi ng repor t Patien t Name: Austin Aden Unit #: [id number] Loc: ICU Orderi ng Provid er: Sophia Langford M.D. Acckyaw t #: [id number] Status : ADM IN Primar y Care Provid er: Heath Carrasco Date of Exam: Sex: F Admiss ion Date: : 1950 Age: 72 Exam(s ) XR PORTAB LE CHEST AP EXAM: XR PORTAB LE CHEST AP CLINIC AL HISTOR Y: ?PNA/C HF: artifa ct on the origin al CXR. TECHNI QUE: 2D digita l imagin g was perfor med. COMPAR LUCY: CR,XR XR PORTAB LE CHEST AP from 2022 FINDIN GS: Single AP portab le view. Compar ed to [facility] same date. Sterno ariel wires again noted. Heart size upper normal . Medias tinum not widene d. Lungs are clear. No infilt rates nor obviou s pleura l effusi ons. No eviden ce of pulmon michael edema. No pneumo thorax . No fractu res. IMPRES ROMAN: No acute pulmon michael findin gs on this single AP portab le view of the chest. DATA REPOSI TORY: RADIAT ION DOSE DELIVE RED: Ordere d By: Sophia Langford M.D. CC: ------ ------ ------ ------ ------ ------ ------ ------ ------ ------ ------ ------ - Dictat ed By: Gonzalo Cruz M.D. 1647 Transc ribed By: Anthony ALY,How aurora 1647 This is privil eged, confid ential inform ation intend ed only for the provid er named. Any use or distri bution by any person other than this provid er is strict ly prohib ited. If you receiv e this report in error, please notify us immedi ately at [phone] and return the origin al report to us at the addres s above. Thank- you. [facility] [address] [place] [address] [place], [address] 06/22/2023 10:01:46 06/19/20 23 06/19/2023 x-ray imagi matthew car Yamiletduane car Name: Austin Aden Unit #: [id number] Loc: ICU Logan castro Provid er: Desiree Whitfield M.D. Accoun t #: [id number] Status : ADM IN Primar y Care Provid er: Heath Carrasco Date of Exam: Sex: F Admiss ion Date: : 1950 Age: 72 Exam(s ) XR PORTAB LE CHEST AP EXAM: XR PORTAB LE CHEST AP CLINIC AL HISTOR Y: shortn ess of breath , atrial fibril lation . TECHNI QUE: 2D digita l imagin g was perfor med. COMPAR LUCY: CR XR CHEST 1V IN DI DEPT from 2021 FINDIN GS: Single AP portab le view. Sterno ariel wires again noted. There is presen tly left-s ided chest pad obscur ing part of the left lung. Mild cardio megaly . Medias tinum not widene d. Right lung is clear. Visual ized left lung is clear. No pulmon michael edema. No fractu res eviden t. IMPRES ROMAN: No acute pulmon michael findin gs on this single AP portab le view of the chest. Sterno ariel wires. Mild cardio megaly . DATA REPOSI TORY: RADIAT ION DOSE DELIVE RED: Ordere d By: Desiree Whitfield M.D. CC: ------ ------ ------ ------ ------ ------ ------ ------ ------ ------ ------ ------ - Dictat ed By: Gonzalo Cruz M.D. 1654 Transc ribed By: Anthony ALY,Ana Maria aurora 1654 This is privil eged, confid ential inform ation intend ed only for the provid er named. Any use or distri bution by any person other than this provid er is strict ly prohib ited. If you receiv e this report in error, please notify us immedi perry at and return the origin al report to us at the addres s above. Thank- you. [facility] [id number] [place], [address] 06/22/2023 10:01:47 06/20/20 23 06/20/2023 progr ess note PROGRE SS NOTE ROCHELLE Car NAME: Austin Aden ldtatiana D UNIT #: [id number] ADMITT ING PROVID ER: Jared Coleman ASSEMBLY LINE SUPERVISOR ACCOUN T #: [id number] PRIMAR Y CARE PROVID ER: DANILO FAY,ABB Y DATE OF ADMIT: 1 3 : 1950 Date of Servic e Date of servic e: Time of Servic e: 00:02 Assess ment and Plan Assess ment and plan (1) Atrial fibril lation with rapid ventri cular respon se: Status : Acute Assess ment and plan: will increa se cardiz em dose as she respon ded well to cardiz em drip. prn lopres sor as needed . serial EKG and tropon in. contin ue tele and monito r. Subjec tive Subjec tive Interv al histor y since last seen: rochelle car noted to have heart rated sustai елена over 120's and report ing right should er pain consis tent with previo us [place], report ing nausea , no vomiti ng, feels afib which she states is unusua l. Exam Const Genera l: no acute distre ss, anxiou s and other (pink warm dry and well perfus ed) Nutrit ional Appear ance: overwe ight [place] ation: alert, awake and orient ed x3 HENMT Head: normal to inspec tion, normoc ephali c and atraum atic Mouth: oral mucosa e normal Resp Effort Inspec tion: normal respir atory effort Auscul tation : clear to auscul tation bilate rally and dimini shed lung sounds Cardio Rate: tachyc ardic Rhythm : abnorm al rhythm (uncon trolle d afib) Skin Genera l skin exam: no rashes or lesion s noted Object bill Last Vital Signs Temp 36.4 C L 19:35 Pulse 82 19:35 Resp 16 19:35 BP 138/70 19:35 Pulse Ox 91 L 19:35 Labora tory Result s - last 24 hr 05:55 09:07 10:45 WBC 10.91 H RBC 5.71 H Hgb 17.6 H Hct 52.1 H MCV 91 MCH 30.8 MCHC 33.8 RDW 13.7 Plt Count 291 MPV 11.1 H Immatu re Gran % 0.3 Neutro phils % 70.0 Lympho cytes % 17.0 Monocy isidra % 10.7 Eosino phils % 1.5 Basoph ils % 0.5 Nuclea thelma RBC % 0.0 Absolu te Neutro phils 7.64 H Absolu te Lympho cytes 1.85 Absolu te Monocy isidra 1.17 H Absolu te Eosino phils 0.16 Absolu te Basoph ils 0.05 Sodium 140 Potass ium 3.5 Chlori de 101 Carbon Dioxid e 31.2 Anion Gap 7.8 BUN 22 H Creati nine 1.3 H Est GFR (CKD-E PI 2020) 43.69 Glucos e 171 H Calciu m 9.7 Magnes ium 2.1 Total Biliru bin 1.0 AST 28 ALT 30 Alkali ne Phosph atase 116 Tropon in I < 50 Cancel led < 50 NT-Pro -B Natriu ret Pep 1489 H Total Protei n 8.1 Albumi n 3.3 L Procal citoni n < 0.1 TSH 0.84 Free T4 1.30 COVID- 19 Source SARS-C oV-2 (PCR) Influe nza Type A (PCR) Influe nza Type B (PCR) RSV (PCR) Add-On Test Reques t DONE 11:30 13:50 13:52 WBC RBC Hgb Hct MCV MCH MCHC RDW Plt Count MPV Immatu re Gran % Neutro phils % Lympho cytes % Monocy isidra % Eosino phils % Basoph ils % Nuclea thelma RBC % Absolu te Neutro phils Absolu te Lympho cytes Absolu te Monocy isidra Absolu te Eosino phils Absolu te Basoph ils Sodium Potass ium Chlori de Carbon Dioxid e Anion Gap BUN Creati nine Est GFR (CKD-E PI 2020) Glucos e Calciu m Magnes ium Total Biliru bin AST ALT Alkali ne Phosph atase Tropon in I < 50 NT-Pro -B Natriu ret Pep Total Protei n Albumi n Procal citoni n TSH Free T4 COVID- 19 Source Nasoph arynx SARS-C oV-2 (PCR) Negati ve Influe nza Type A (PCR) Negati ve Influe nza Type B (PCR) Negati ve RSV (PCR) Negati ve Add-On Test Reques t COMPLE THELMA Time Spent with Patien t Time Spent with Patien t: 25-34 minute s Time was spent: prepar ing to see the patien t(eg.r eview tests) , obtain ing and/or review ing separa teljaison early hiisto ry, orderi ng medica tions, tests, proced ures, indepe ntentl y interp reting result s and counse ling the patien t cc: ------ ------ ------ ------ ------ ------ ------ ------ ------ ------ ------ --- Dictat ed by: CELINA Gutierrez ASSEMBLY LINE SUPERVISOR, MAKI Dictat ed: Time: 00 Date: 001 Date: Date: Transc ribed Date: Transc ribed Time: 1 By: ANNETTE This is privil eged, confid ential inform ation, intend ed only for the provid er named. Any use or distri bution by any person other than this provid er is strict ly prohib ited. If you receiv e this report in error, please notify us immedi ately at and return the origin al report to us at the addres s above. Thank you. [email or web address] [place], [address] 06/22/2023 10:01:47 06/20/2006/20/2023 elect rafy thompson am EKG PATIDUANE T NAME: Austin Aden UNIT #: [id number] [facility] ER: Sophia Langford M.D.OUN T #: [id number] PRIMAR Y CARE PROVID ER: DANILO FAY,ABB Y DATE/T KENDRA OF SERVIC E: 110 : 1950 SHANA QUIGLEY LOCATI ON: MS ------ ------ --- APPROV ED REPORT ------ ------ -- Exam: Restin g ECG Reason for Exam: F/u Afib Patien t Locati on: I HR:81 bpm ECG Measur ements Heart Rate 81 AXIS W[place] [id number] 9512 P [id number] QRSd 97 QRS 74 QT 385 T 203 QTc 447 Conclu roman Atrial fibril lation ...V-r ate 71- 89, irreg A-acti vity Consid er anteri or infarc t...Q >30mS in V2-V5 ------ ------ ------ ------ ------ ------ ------ ------ ------ ------ ------ ------ ------ ------ ------ ------ ---- ------ - E-Sign Date: E-Sign Time: [email or web address] [place], [address] 06/22/2023 10:01:47 06/20/2006/19/2023 joe thompson am EKG ROCHELLE T NAME: Austin Aden UNIT #: [id number] LOGAN NG PROVID ER: Desiree Whitfield M.D. ACCOUN T #: [id number] PRIMAR Y CARE PROVID ER: CAMPBELL CARRASCO NP Y DATE/T KENDRA OF [facility] E: 56 : 1950 SHANA DANN LOCATI ON: MS ------ ------ --- APPROV ED REPORT ------ ------ -- Exam: Restin g ECG Reason for Exam: chest pain Patien t Locati on: E HR:155 bpm ECG Measur ements Heart Rate 155 AXIS WV 94 P 171 QRSd 82 QRS 77 QT 302 T [id number] QTc 485 Conclu roman Atrial fibril lation with rapid ventri cular respon se. Scopin g ST depres roman in multip le leads like refelc ts a rate relate d repola riomati on abnomo rmalit y ------ ------ ------ ------ ------ ------ ------ ------ ------ ------ ------ ------ ------ ------ ------ ------ ---- ------ - E-Sign Date: E-Sign Time: 0658 ------ ------ --- ADDEND APPRO ED REPORT ------ ------ -- Exam: Restin g ECG Reason for Exam: chest pain Patien t Locati on: E HR:155 bpm ECG Measur ements Heart Rate 155 AXIS WV 94 P 171 QRSd 82 QRS 77 QT 302 T [id number] QTc 485 Conclu roman Atrial fibril lation with rapid ventri cular respon se. Scopin g ST depres roman in multip le leads like refelc ts a rate relate d repola riomati on abnomo rmalit y I have review ed and I agree with the emerge ncy room physic ashley's ECG interp retati on. Electr onical ly signed by: [id number] Cosign ed by: [email or web address] [facility] [address] [place], [address] 06/22/2023 10:01:44 06/20/20 23 06/20/2023 ultra sound imagi ng repor t Rochelle car Name: Austin Aden isreal D Unit #: [id number] Loc: MS Ford ng Provid er: Sophia Langford M.D. Accoun t #: [id number] Status : ADM IN Primar y Care [facility] er: Heath Carrasco Date of Exam: Sex: F Admiss ion Date: : 1950 Age: 72 ------ ------ --- APPROV ED REPORT ------ ------ -- EXAM: Compre hensiv e 2D, Dopple r, and color- flow Echoca rdiogr am Patiduane t Locati on: In-Pat ient Room/B ed: 229 Sonogr apher: Lester Espinoza, RDCS (AE) Indica tions: afib, pulmon michael HTN Other Inform ation Study Qualit y: [place] te. Techni adriana limite d study due to body habitu s. Conclu roman Mild concen tric left ventri cular hypert rophy. Ejecti on fracti on is 55%. No segmen niki wall motion abnorm alitie s are identi fied. Rochelle car is in atrial fibril lation with a border line rate and beat-t o-beat variat ion Normal right ventri cular size and systol ic functi on Left atrium is modera tely enlarg ed. Right atrium is mildly enlarg ed Aortic valve is sclero tic withou t stenos is or regurg itatio n Normal mitral valve with mild regurg itatio n Normal tricus pid valve with modera te regurg itatio n. Estima thelma right ventri cular systol ic pressu re is 39 mmHg Mildly dilate d ascend ing aorta 3.56 cm Wall motion Left Ventri mickey The left ventri mickey is normal size. The left ventri cular systol ic functi on is normal . The left ventri cular ejecti on fracti on is within the normal range. Mild concen tric left ventri cular hypert rophy. There is normal LV segmen niki wall motion . Indete rminat e due to atrial fibril lation There is no ventri cular septal defect visual ized. LVEF is 55%. Right Ventri mickey The right ventri mickey is normal size. The right ventri cular systol ic functi on is normal . The RVSP is 38.9 mmHg. Atria Left atrium is modera tely dilate d. Right atrium is mildly dilate d. The intera trial septum is intact with no eviden ce for an atrial septal defect . Aortic Valve The Aortic valve is sclero tic. Aortic valve is probab ly trilea flet. There is no aortic valvul ar stenos is. No aortic regurg itatio n is presen t. Mitral Valve The mitral valve is normal in struct ure. No eviden ce of mitral valve stenos is. Mild mitral regurg itatio n. Tricus pid Valve The tricus pid valve is normal in struct ure. There is no tricus pid valve stenos is. Modera te tricus pid regurg itatio n. Pulmon ic Valve Pulmon ic valve is not well visual ized. There is no pulmon ic valvul ar stenos is. There is no pulmon ic valvul ar regurg itatio n. Great Vessel s The aortic root is normal in size. The ascend ing aorta is mildly dilate d. Aortic arch is not well visual ized. IVC is normal in size and collap ses >50% with inspir ation. Perica rdium There is no perica rdial effusi on. 2D Dimens ions IVSD d PLAX 1.23 cm F: 0.6-1. 0 Ao Root d 3.14 cm F: 2.7 - 3.3 LVPW d PLAX 1.24 cm F: 0.6 - 1.0 Ao Asc Diam d 3.56 cm F: 2.3 - 3.1 LVID d PLAX 3.88 cm F: 3.8 - 5.2 LVDs 2.83 cm F: 2.2 - 3.5 LV EF Teichh olz 53.2 % FS 26.93 % LV EDV (Teich ) 65.0 mL LV ESV (Teich ) 30.4 mL Stroke Vol Index (Teich ) 18.20 M-Mode TAPSE 1.58 cm (M/F) >1.7 Auto EF LV EDV A4C 86.3 mL LV EDV A2C 79.5 mL LV EDV BP 82.0 mL LV ESV A4C 42.8 mL LV ESV A2C 35.9 mL LV ESV BP 39.2 mL LVEF(% ) A4C 50.4 % LVEF(% ) A2C 54.9 % LVEF(% ) BP 52.2 % LV SV A4C 43.5 ml LV SV A2C 43.6 ml LV SV BP 42.8 ml LV CO A4C 4.8 L/min LV CO A2C 5.3 L/min LV CO BP 5.1 L/min HR A4C 110.77 BPM HR A2C 122.05 BPM LV EDV Index (BP) LA Volume LA Length A4C 6.8 cm LA Length A2C LA Area A4C s 20.73 cm2 LA Area A2C s LA Vol A4C A-L 53.43 mL LA Vol A2C A-L LA Vol Biplan e A-L LA Vol A4C MOD 54.0 mL LA Vol A2C MOD LA Vol BP MOD RA Volume RA Area A4C 16.9 cm2 RA ESV A4C (A-L) 45.6mL RA Vol/BS A A4C A-L RA Length A4C 5.3 cm RA ESV A4C (MOD) 44.5mL LV Diasto logy MV E' medial 0.089 (>0.07 m/s) MV E Vmax 1.31 (0.4-1 .3 m/s) MV E/E' MED 14.78 (<14) MV E' latera l 0.075 (>0.1 m/s) MV E/E' LAT 17.64 (<14) MV E' Averag e 0.082 m/s MV E/E'(a verage ) 16.08 Aortic Valve AoV Vmax 1.28 m/s LVOT Vmax 1.00 m/s AoV Peak Grad 6.5 mmHg LVOT Peak Grad 4.0 mmHg AoV Area (Vmax) 1.79 cm2 LVOT VTI 0.183 m AoV VTI 0.285 m LVOT Mean Grad 2.0 mmHg AoV Mean Crow. 0.90 m/s LVOT SV 41.96 mL AoV Mean Grad 3.7 mmHg LVOT Diam s 1.70 cm AoV Area (VTI) 1.47 cm2 Veloci ty Ratio 0.78 Mitral Valve MV DT 144 (160-2 40 msec) Pulmon michael Valve PV Vmax 0.91 (0.5-1 .5 m/s) RVOT Vmax 0.83 m/s PV Peak Grad 3.3 mmHg RVOT Peak Gr. 2.8 mmHg PV Mean Crow 0.59 m/s RVOT VTI 0.154 m PV Mean Grad 1.6 mmHg RVOT Mean Gr. 1.3 mmHg Tricus pid Valve RA Pressu re 3.00 mmHg TR Vmax 3.00 m/s TR Peak Grad 35.9 mmHg RVSP (TR) 38.9 mmHg Ordere d By: Sophia Langford M.D. CC: ------ ------ ------ ------ ------ ------ ------ ------ ------ ------ ------ ------ - Dictat ed By: Shalonda Richardson M.D. [id number] Transc ribed By: Shalonda Richardson MD 41 This is privil eged, confid ential inform ation intend ed only for the provid er named. Any use or distri bution by any person other than this provid er is strict ly prohib ited. If you receiv e this report in error, please notify us immedi ately at and return the origin al report to us at the addres s above. Thank- you. [email or web address] [facility] [address] [place], [address] 06/22/2023 10:01:48 06/20/20 23 06/20/2023 progr ess note PROGRE SS NOTE PATIEN T NAME: Austin Aden UNIT #: [id number] ADMITT ING PROVID ER: Sophia Langford M.D. 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 Rates are now contro lled on cardiz em 60 mg PO Q6hrs + toprol XL 150 mg daily. HR is actual down to the 60s. Will contin ue monito ring on this new dose of cardiz em. Contin ue apixab an. Echo: LVEF 55%, no segmen niki wall motion abnorm alitie s; aortic sclero sis, RVSP of 39 mmHg. (2) Right should er pain: Status : Resolv ed Assess ment and plan: I suspec t this was an angina l equiva lent. C/s cardio logy, especi ally now that this has recurr ed and the patien t had a short run of Vtach. Contin ue home asa + antico agulat ion, rate contro l. No wall motion abnorm alitie s on echo. Monito r on tele. Repeat EKG and tropon in. (3) URI (upper respir atory infect ion): Status : Acute Assess ment and plan: Tested negati ve for FLUVID -19. CXR negati ve. Procal citoni n negati ve. Howeve r, sputum is purule nt by caden ption. Trial doxycy ag. (4) CAD (coron michael artery diseas e): Status : Chroni c Assess ment and plan: No eviden ce of ACS on this admiss ion, but as above - concer n for angina . C/s cardio logy: ? unstab le angina and need for inpati ent ischem ic workup ? (5) Pulmon michael hypert ension : Assess ment and plan: Contin ue outpat ient diuret ics. The patien t does not use a CPAP for her JESICA. (6) DVT prophy laxis: Status : Acute Assess ment and plan: On therap eutic apixab an (7) Discha rge planni ng issues : Status : Acute Assess ment and plan: DNR/DN I, as verifi ed with the patien tBabar Purvis erred to the medica l surgic al floor on day of admiss ion. Antici al discha rge home in the next 24-48 hrs. Subjec tive Subjec tive Interv al histor y since last seen: Ms Jamari richardson went back into rapid Afib overni ght and requir ed an increa se in dose of her cardiz em to 60 mg PO q6Hrs. At the time of rapid rates, she does state she had should er pain again. She has some now as well. She had an episod e of 8 beats of Vtach about an hour ago. She is not sure what she was doing then or if she was sympto matic. Denies dizzin ess, CP now (but did feel a sensat ion of chest tightn ess this mornin g), denies SOB, n/v. States cough is produc tive of green sputum and her nasal discha rge is green this am. Exam Narrat bill Exam Narrat bill: Genera l: Pleasa nt Caucas ashley female who appear s comfor table in bed, A Ox3, laying on her R should er. HEENT: EOMI, MMM Cardio vascul ar: irregu larly irregu lar rhythm , no m/r/g Lungs: CTAB Gastro intest inal: soft, nonten marita, nondis tended Extrem ities: trace edema BLEs, +1 pedal pulses B, no c/c Object bill Last Vital Signs Temp 35.6 C L 08:52 Pulse 64 08:52 Resp 18 08:52 BP 132/81 08:52 Pulse Ox 95 08:52 Labora tory Result s - last 24 hr 09:07 10:45 11:30 Sodium Potass ium Chlori de Carbon Dioxid e Anion Gap BUN Creati nine Est GFR (CKD-E PI 2020) Glucos e Calciu m Magnes ium Tropon in I Cancel led < 50 Procal citoni n < 0.1 TSH 0.84 Free T4 1.30 COVID- 19 Source Eddie espinox SARS-C oV-2 (PCR) Negati ve Influe nza Type A (PCR) Negati ve Influe nza Type B (PCR) Negati ve RSV (PCR) Negati ve Add-On Test Reques t DONE 13:50 13:52 00:15 Sodium Potass ium Chlori de Carbon Dioxid e Anion Gap BUN Creati nine Est GFR (CKD-E PI 2020) Glucos e Calciu m Magnes ium Tropon in I < 50 < 50 Procal citoni n TSH Free T4 COVID- 19 Source SARS-C oV-2 (PCR) Influe nza Type A (PCR) Influe nza Type B (PCR) RSV (PCR) Add-On Test Reques t COMPLE THELMA 06:22 06:22 06:22 Sodium Cancel led 139 Potass ium Cancel led 3.5 Chlori de Cancel led Carbon Dioxid e Anion Gap BUN Creati nine Est GFR (CKD-E PI 2020) Glucos e Calciu m Magnes ium Tropon in I Procal citoni n TSH Free T4 COVID- 19 Source SARS-C oV-2 (PCR) Influe nza Type A (PCR) Influe nza Type B (PCR) RSV (PCR) Add-On Test Reques t 06:22 06:22 06:22 Sodium Potass ium Chlori de 103 Carbon Dioxid e Cancel led 30.6 Anion Gap Cancel led 5.4 BUN Cancel led Creati nine Est GFR (CKD-E PI 2020) Glucos e Calciu m Magnes ium Tropon in I Procal citoni n TSH Free T4 COVID- 19 Source SARS-C oV-2 (PCR) Influe nza Type A (PCR) Influe nza Type B (PCR) RSV (PCR) Add-On Test Reques t 12 06:22 06:22 06:22 Sodium Potass ium Chlori de Carbon Dioxid e Anion Gap BUN 22 H Creati nine Cancel led 1.1 H Est GFR (CKD-E PI 2020) Cancel led 53.39 Glucos e Cancel led Calciu m Magnes ium Tropon in I Procal citoni n TSH Free T4 COVID- 19 Source SARS-C oV-2 (PCR) Influe nza Type A (PCR) Influe nza Type B (PCR) RSV (PCR) Add-On Test Reques t 06:22 06:22 06:22 Sodium Potass ium Chlori de Carbon Dioxid e Anion Gap BUN Creati nine Est GFR (CKD-E PI 2020) Glucos e 160 H Calciu m Cancel led 8.8 Magnes ium Cancel led 1.9 Tropon in I < 50 Procal citoni n TSH Free T4 COVID- 19 Source SARS-C oV-2 (PCR) Influe nza Type A (PCR) Influe nza Type B (PCR) RSV (PCR) Add-On Test Reques t Object bill Narrat bill Object bill Narrat bill: Echo; Mild concen tric left ventri cular hypert rophy. Ejecti on fracti on is 55%. No segmen niki wall motion abnorm alitie s are identi fied. Patien t is in atrial fibril lation with a border line rate and beat-t o-beat variat ion Normal right ventri cular size and systol ic functi on Left atrium is modera tely enlarg ed. Right atrium is mildly enlarg ed Aortic valve is sclero tic withou t stenos is or regurg itatio n Normal mitral valve with mild regurg itatio n Normal tricus pid valve with modera te regurg itatio n. Estima thelma right ventri cular systol ic pressu re is 39 mmHg Mildly dilate d ascend ing aorta 3.56 cm CXR (yeste rday): No acute pulmon michael findin gs on this single AP portab le view of the chest. Sterno ariel wires. Mild cardio megaly . Time Spent with Patien t Time Spent with Patien t: 35-49 minute s Time was spent: prepar ing to see the patien t(eg.r eview tests) , obtain ing and/or review ing gilbert oneill, orderradha castro medica tions, tests, proced ures, referr ing, commun doug g with other health care profes sional s, indepe ntentl y interp reting result s, counse ling the patien t and care [facility] cc: ------ ------ ------ ------ ------ ------ ------ ------ ------ ------ ------ --- Dictat ed by: MARNIE LANGFORD MD Dictat ed: Time: 103 5 Date: 1043 Date: Date: Transc ribed Date: Transc ribed Time: 103 By: TEJAL This is privil eged, confid ential inform ation, intend ed only for the provid er named. Any use or distri bution by any person other than this provid er is strict ly prohib ited. If you receiv e this report in error, please notify us immedi perry at and return the origin al report to us at the addres s above. Thank you. 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 Her heart rate is better contro lled after being quite high on presen tation Qualif iers: Atrial fibril lation type: perman ent Qualif ied Code(s ): I48.21 - Perman ent atrial fibril lation (2) CAD (coron michael artery diseas e): Status : Chroni c Assess ment and plan: Rochelle car had bare-m etal stents placed to the LAD and right mabry ry artery in 2007. Over the uin g year she has had period ic presen tation s, includ ing 1 in 2014 for right should er pain that was felt to be noncar diac. I think given that she had heart rates as high as 170 and no eviden ce of myocar dial necros is that this is reassu ring. I do not think she requir es additi onal cardia c testin g at presen t, no stress test is advise d She should contin ue with rate contro l and antico agulat ion with Eliqui s. We will follow in clinic as schedu led Qualif iers: Mabry ry Diseas e-Asso ciated Artery /Lesio n type: [place] artery [place] vs. transp lanted heart: [place] heart Associ ated angina : unspec ified whethe r angina pres t Qualif ied Code(s ): I 25.10 - Athero sclero tic heart diseas e of [place] mabry ry artery withou t angina pector is (3) Right should er pain: Status : Resolv ed Assess ment and plan: This may or may not repres ent angina . In the past she has had simila r sympto ms, cardia c cathet erizat ion repeat ed, no new findin gs Qualif iers: Chron city: unspec ified Qualif ied Code(s ): M25.51 1 - Pain in right should er Histor y of Presen t [place] Narrat bill: This 72-yea r-old woman came to the hospit al becaus e of right scapul ar pain. She report s that it was remini scent of that she experi enced in 2007 when she had an acute myocar dial infarc tion. At that time she had bare-m etal stents placed to the right mabry ry and mid LAD. She has had subseq uent presen tation s for simila r sympto ms includ ing 1 in 2014 to [facility] when she had repeat cardia c cathet erizat ion disclo sed no new lesion sBabar car came here to the hospit al with the aforem ention ed pain, was found to be in atrial fibril lation with an uncont rolled ventri cular respon se. Her heart rate has come under better contro l (she has perman ent atrial fibril lation ). Multip le cardia c enzyme s have been perfor med. She has had at least 6 negati ve tropon ins. Rochelle car says that there was a questi on of whethe r or not she should have a stress test for furthe r evalua tion Review of System s Cardio vascul ar Cardio vascul ar: Report s as per HPI and Report s system review ed and no additi onal compla ints, except as docume nted PFSH All Active Proble ms (Updat ed @ 13:28 by Shalonda Richardson MD) URI (upper respir atory infect ion) (Acute ) Atrial fibril lation with rapid ventri cular respon se (Acute ) Tachyc ardia (Acute ) COPD (chron ic obstru ctive pulmon michael diseas e) (Chron ic) Atrial fibril lation (Chron ic ) Hypert ension (Chron ic) CAD (coron michael artery diseas e) (Chron ic) a. drug elutin g stents Obesit y (Chron ic) BMI 33.0-3 3.9,ad ult (Chron ic) Osteoa rthrit is (Chron ic) H/O carpal tunnel syndro me (Chron ic) Chroni c low back pain (Chron ic) H/O hyperc alcemi a (Chron ic) H/O hyperp arathy roidis m (Chron ic) a. Surger y to remove adenom as Osteop enia (Chron ic) Psoria sis (Chron ic) Elevat ed hemato crit (Chron ic) Elevat ed hemogl obin (Chron ic) Impair ed fastin g glucos e (Chron ic) Metabo lic syndro me (Chron ic) a. trigly ceride s greate r than 300 and HDL less than 30 Hypert ensive CKD (chron ic kidney diseas e) (Chron ic) A. probab ly stage 1 or 2 B. baseli ne creati nine 1.1 to 1.2 Sepsis (Acute ) Predia betes (Acute ) Erythr ocytos is (Chron ic) Abnorm al LFTs (Acute ) Hypoma gnesem ia (Acute ) Acute CHF (Acute ) Discha rge planni ng issues (Acute ) DVT prophy laxis (Acute ) Modera te pulmon michael arteri al systol ic hypert ension (Chron ic) Acute renal insuff icienc y (Acute ) Post-m enopau celeste bleedi ng (Acute ) Chroni c atrial fibril lation with rapid ventri cular respon se (Acute ) Pneumo lino (Acute ) Acute kidney injury superi mposed on chroni c kidney diseas e (Acute ) Periph eral neurop athy (Acute ) Lung nodule (Acute ) CHF (conge stive heart failur e) (Chron ic) Exerti onal shortn ess of breath (Acute ) Diabet es mellit us (Chron ic) Fatigu e (Acute ) Increa sed sputum produc tion (Acute ) Snorin g (Acute ) Season al allerg ies (Acute ) Hyperl ipidem ia (Acute ) Skin lesion (Acute ) Emphys justen lung (Acute ) Thyroi d nodule (Acute ) Medica l Histor y (Updat ed @ 13:28 by Shalonda Richardson MD) Degene rative joint diseas e of right hip Catara cts, bilate ral Trigge r finger , right index finger Rosace a Leg pain, right Loss of balanc e 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 CKD (chron ic kidney diseas e) Pulmon michael hypert ension Muscle spasm Rhinit is PONV (posto perati ve nausea and vomiti ng) Acute bronch itis Surgic al Histor y (Revie tue @ 11:39 by Shalonda Richardson MD) H/O benign neopla sm resect ed Hx of cardia c cath 2 stents H/O parath yroide ctomy s/p 2 stents Family Histor y (Revie tue @ 11:39 by Shalonda Richardson MD) Other Heart diseas e Social Histor y (Revtue @ 11:39 by Shalonda Richardson MD) 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 Exam Const Other: Overwe ight elderl y woman no acute distre ss Neck Other: Unable to assess JVP caroti d pulsat ions are normal Resp Auscul tation : clear to auscul tation bilate rally Cardio Other: Irregu larly irregu lar no murmur or gallop Result s Last Vital Signs Temp 35.9 C L 11:30 Pulse 78 11:30 Resp 18 11:30 BP 134/65 11:30 Pulse Ox 94 11:30 Labs 05:55 06:22 Labs: Labora tory Result s - last 24 hr 10:45 13:50 13:52 Sodium Potass ium Chlori de Carbon Dioxid e Anion Gap BUN Creati nine Est GFR (CKD-E PI 2020) Glucos e Calciu m Magnes ium Tropon in I < 50 TSH 0.84 Free T4 1.30 Add-On Test Reques t DONE COMPLE THELMA 00:15 06:22 06:22 Sodium Cancel led 139 Potass ium Cancel led Chlori de Carbon Dioxid e Anion Gap BUN Creati nine Est GFR (CKD-E PI 2020) Glucos e Calciu m Magnes ium Tropon in I < 50 TSH Free T4 Add-On Test Reques t 06:22 06:22 06:22 Sodium Potass ium 3.5 Chlori de Cancel led 103 Carbon Dioxid e Cancel led 30.6 Anion Gap Cancel led BUN Creati nine Est GFR (CKD-E PI 2020) Glucos e Calciu m Magnes ium Tropon in I TSH Free T4 Add-On Test Reques t 06:22 06:22 06:22 Sodium Potass ium Chlori de Carbon Dioxid e Anion Gap 5.4 BUN Cancel led 22 H Creati nine Cancel led 1.1 H Est GFR (CKD-E PI 2020) Cancel led Glucos e Calciu m Magnes ium Tropon in I TSH Free T4 Add-On Test Reques t 06:22 06:22 06:22 Sodium Potass ium Chlori de Carbon Dioxid e Anion Gap BUN Creati nine Est GFR (CKD-E PI 2020) 53.39 Glucos e Cancel led 160 H Calciu m Cancel led 8.8 Magnes ium Cancel led Tropon in I TSH Free T4 Add-On Test Reques t 06:22 10:45 Sodium Potass ium Chlori de Carbon Dioxid e Anion Gap BUN Creati nine Est GFR (CKD-E PI 2020) Glucos e Calciu m Magnes ium 1.9 Tropon in I < 50 < 50 TSH Free T4 Add-On Test Reques t CC: ------ ------ ------ ------ ------ ------ ------ ------ ------ ------ ------ ------ ------ ------ ------ ------ ---- -- Dictat ed by: PARAMJIT RICHARDSON MD Dictat ed:: 3 1323 132 Transc ribed Date: Transc ribed Time: 1323 By: RINA This is privil eged, confid ential inform ation, intend ed only for the provid er named. Any use or distri bution by any person other than this [facility] er is strict ly prohib ited. If you receiv e this report in error, please notify us immedi perry at and return the origin al report to us at the addres s above. Thank you. [email or web address] [facility] [address], [place], [address] 06/22/2023 10:01:49 06/20/20 23 06/20/2023 elect rafy thompson am EKG ROCHELLE T NAME: Austin Aden UNIT #: [id number] ORDERI NG [facility] ER: Sophia Langford M.D. 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 ..QRSd >115mS , not LBBB/R BBB Nonspe cific T abnorm apolonia sdaniela l leads. ..T <-0.10 mV, I aVL V5 V6 ------ ------ ------ ------ ------ ------ ------ ------ ------ ------ ------ ------ ------ ------ ------ ------ ---- ------ - E-Sign Date: E-Sign Time: 1332 [facility] [address] [place], [address] 06/22/2023 10:01:50 06/20/2006/20/2023 nutri tion note Nutrit ion Note ROCHELLE T NAME: Austin Aden UNIT #: [id number] ORDERI NG PROVID ER: ACCOUN T #: [id number] PRIMAR Y CARE PROVID ER: DANILO FAY,ABB Y DATE/T KENDRA OF SERVIC E: : 1950 Date of servic e: Time of Servic e: 11:00 Nutrit ion Note NOTE: receiv ed consul t reques t re: routin e diabet es educat ion Pt is 72yo female admitt ed with Afib, R should er pain, URI. PMH signif icant for COPD, CAD, CHF, HTN, Obesit y, DMII. A1C was done last in november 2022 and was 7.4 with A1C histor ically <7. glucos e mainly 160-18 0 during admiss ion and FBG this mornin g was 160. This admiss ion gettin g 24unit s Humuli n daily and sensit bill insuli n aspart slidin g scale for meal covera ge. Pt demons trated adequa te knowle dge of food which raise glucos e, statin g they gave me a whole banana this mornin g when a gabby g is only half. She is disple ased about her heart health y diet assign ment, saying that she doesn' t have high blood pressu re right now and was denied a piece of kamara at breakf ast. Pt declin ed printe d materi als re: diabet es educat ion. I libera lized her diet order and kept consis tent CHO but change d heart health y to low sodium with the caveat that she can have 1 piece of kamara at breakf ast. Antici al short hospit al stay so this won't be clinic ally signif icant to her discha rge status . Will contin ue to monito r nutrit ion status and provid e nutrit ion interv ention s as approp nathalia. Time Spent in Nutrit ional Counse ling and Treatm ent: 15 min CC: ------ ------ ------ ------ ------ ------ ------ ------ ------ ------ ------ ------ ------ ------ ------ ------ ---- -- Dictat ed by: Scotty WANG CD, Chad Dictat ed:: 1424 1435 Transc ribed Date: Transc ribed Time: 1423 By: FS.PRO Torres This is privil eged, confid ential inform ation, intend ed only for the provid er named. Any use or distri bution by any person other than this provid er is strict ly prohib ited. If you receiv e this report in error, please notify us immedi kurtisly at [phone] and return the origin al report to us at the addres s above. Thank you. [address], [place], [address] 06/22/2023 10:01:50 06/21/2006/21/2023 disch arge summa ry DISCHA RGE SUMMAR Y PATIEN T NAME: Jamari richardsonAustin Early UNIT #: [id number] ADMITT ING PROVID ER: PRIMITIVO ALY,MARNIE DE LA CRUZ T #: [id number] PRIMAR Y CARE PROVID ER: DANILO FAY,ABB Y DATE OF ADMIT: 1 [birth year] : 1950 DISCHA RGE DATE: Date of servic e: Time of Servic e: 12:31 DS: Diagno sis Discha rge Diagno sis (1) Atrial fibril lation with rapid ventri cular respon se: Status : Acute (2) CAD (coron michael artery diseas e): Status : Chroni c (3) Right should er pain: Status : Resolv ed Asessm ent and Plan: possib le angina l equiva lent (4) URI (upper respir atory infect ion): Status : Acute (5) Hypert ension : Status : Chroni c (6) COPD (chron ic obstru ctive pulmon michael diseas e): Status : Chroni c (7) Pulmon michael hypert ension : Discha rge Plan Dispos ition Patien t Dispos ition: Home Condit ion: Improv ing Discha rge Detail s Reason For Visit: Rapid Afib Admit Date/T kendra: 08:15 Admit Provid er: Sophia Langford Attend ing Provid er: Sophia Langford Primar y Care Provid er: Heath Carrasco Hospit al Course Hospit al Course : Mr Jamari richardson is a 72 year old female with PMHx of perman ent Afib on apixab an, as well as h/o CAD s/p KARYNA, negati ve cardia c cath in 2014, HTN, nonoxy gen-de penden t COPD, JESICA not on CPAP, who was amitte d to [facility] ICU under the hospit alist servic e on 3 for rapid atrial fibril lation requir ing cardiz em gtt, having presen thelma with R-shou lder pain c/w the pain she previo usly had during an acute WI. With rate contro l in the ED, her should er pain resolv ed, sugges ting that this perhap s was an angina l equiva lent, though she did not have any eviden ce of ischem ia by tropon ins or EKG during her rapid rates, which per cardio logy is reassu ring. Cardio logy did see the patien t in consul t and felt the patien t would not need furthe r ischem ic workup . The patien t's cardiz em drip was discon tinued and she was transi tioned to her home medica tions (cardi zem CD 120 mg Po daily and metopr olol XL 150 mg Po daily) . Howeve r, there was a recurr ence of rapid rates, and this requir ed an increa se a dose of her cardiz em to 240 mg daily, which she has tolera thelma withou t recurr ence of rapid rates and withou t hypote nsion. The patien josep is being discha rged home on cardiz em CD 240 mg as well as toprol XL 150 mg daily. It appear s that the rapid Afib was trigge red by an underl khushbu upper respir atory infect ion/ac [place] bronch itis. The patiduane car had a negati ve PCR for COVID- 19/inf luenza /RSV, and her CXR was netgat bill. Given sputum color change to green, she was starte d on doxycy ag. She is not requir ing oxygen . She is stable for discha rge home today with 7 more doses of doxycy ag. She should follow up with her PCP and with cardio logy. Care for rochelle car as well as comple tion of her discha rge summar y on day of discha rge took 45 minute s. Home Meds and New Rx's Prescr iption s: New doxycy ag hyclat e 100 mg Capsul e 100 mg PO Q12H Qty: 7 0RF guaife nesin [Mucus Relief ER] 600 mg Tablet Extend ed Releas e 12hr 600 mg PO BID PRN PRN (Reaso n: cough) Qty: 30 0RF diltia zem HCl 240 mg capsul e,exte nded releas e 24hr 240 mg PO DAILY Qty: 30 0RF Contin ued fluoro uracil [Efude x] 5 % cream 1 applic topica l BID 21 Days Qty: 40 0RF aspiri n [Adult Aspiri n Regime n] 81 mg tablet ,delay ed releas e (DR/EC ) 81 mg PO DAILY Qty: 90 0RF metopr olol succin ate 100 mg tablet extend ed releas e 24 hr 100 mg PO DAILY Qty: 90 6RF furose mide [Lasix ] 40 mg tablet 60 mg PO DAILY Victoz a 3-Abdulaziz 0.6 mg/0.1 mL (18 mg/3 mL) pen inject or 0.6 mg subcut HS Eliqui s 5 MG tablet 5 mg PO BID Qty: 60 gaye ukast 10 mg tablet 10 mg PO HS betame thason e león te 0.1 % ointme nt 1 applic topica l DAILY PRN nitrog lyceri n 0.4 MG tablet , sublin gual 0.4 mg Sublin gual PER PROTOC OL Rx Instru ctions : needs script renewe d cholec alcife rol (vitam in D3) 1,000 UNITS tablet 1,000 units PO DAILY calciu m carbon ate 430 mg calciu m (1,000 mg) Tablet ,Chewa ble 1,000 mg PO DAILY lisino pril 10 mg tablet 10 mg PO DAILY Spiriv a Respim at 1.25 mcg/ac tuatio n mist 2 spray INHALA TION DAILY metopr olol succin ate 50 mg tablet extend ed releas e 24 hr 50 mg PO DAILY Patien t Commen ts: TAKE ONE TABLET BY MOUTH EVERY DAY with 100 mg tab for total dose = 150 mg Novoli n N FlexPe n 100 unit/m L (3 mL) insuli n pen 24 unit SUBCUT DAILY Patien t Commen ts: INJECT 24 UNITS UNDER THE SKIN ONCE DAILY Discon tinued diltia zem HCl 120 mg capsul e,exte nded releas e 24 hr 120 mg PO DAILY Qty: 90 3RF Discha rge Instru ctions Instru ctions : Doxycy ag (By mouth) , A-fib (Atria l Fibril lation ) (DC), Acute Bronch itis (ED) Additi onal Instru ctions : Return to the hospit al with any fever, bleedi ng, chest pain or shortn ess of breath . Follow up with your PCP in 1-2 weeks. Follow up with cardio logy. Stand Alone Forms: Flower holguin Discha rge Form Referr als: Patrick Richardson MD [ [facility] STAFF PHYSIC ASHLEY] - 11:20 am Heath Carrasco [Prima ry Care Provid er] - 9:45 am Activi ty:: Activi ty as Tolera thelma Equipm ent/Sebastian pplies :: No Equipm ent Needed Diet:: As Tolera thelma Discha rge Orders Discha rge Orders : Discha rge Order (Routi ne); Ordere d Ordere d By: Sophia Langford DS: Summar y Time Spent with Patien t provid ing and/or coordi nating discha rge servic es: Greate r than 30 minute s Status at Discha rge Functi onal status at discha rge: indepe ndent ambula tion Overal l status at discha rge: patien t is progre ssing back to baseli ne Mental Status : mental status grossl y normal Speech and Moveme nt: speech and moveme nt normal Mood: congru ent mood Affect : normal affect Exam Narrat bill Exam Narrat bill: Genera l: Pleasa nt Caucas ashley female who appear s comfor table sittin g up in a chair, A Ox3, NAD HEENT: EOMI, MMM Cardio vascul ar: irregu larly irregu lar rhythm , no m/r/g Lungs: CTAB anteri arabella Gastro intest inal: soft, nonten marita, nondis tended Extrem ities: trace edema BLEs Psych Mental Status : mental status grossl y normal Speech and Moveme nt: speech and moveme nt normal Mood: congru ent mood Affect : normal affect DS: Data Vitals /I O Vitals and I O: Vital Signs Temper ature 36.6 C 11:39 Temper ature Source Tympan ic 11:39 Pulse 68 11:39 Pulse Rhythm Irregu lar 07:37 Pulse 91 H 18:09 Respir atory Rate 18 11:39 Respir atory Effort Short of Breath 07:37 Respir atory Depth Normal 07:37 Respir atory Patter n Normal 07:37 Blood Pressu re 157/95 H 11:39 Blood Pressu re Mean 76 18:09 Blood Pressu re Positi on Supine 16:11 Pulse Oximet ry 95 11:39 Oxygen Delive ry Method Room Air 11:39 Oxygen Flow Rate 0 11:39 Pain Level 0 11:39 Commen t Nurse notifi ed about BP. 11:39 Intake Output 23:59 11:59 23:59 Intake Total 720 / 720 Balanc e 720 / 720 Weight 86.228 kg Intake : Oral 720 / 720 Other: Urine Appear ance Clear Commen t Indepe ndentl y uses the bathro om, uses brief for dribbl ing. Indepe ndentl y uses the bathro om, she stated that she voided . Stool Charac terist ics Formed Voidin g Method s Toilet Toilet Data Comple thelma and Pendin g Comple thelma studie s during hospit alizat ion [Text1 ]: CXR 3: No acute pulmon michael findin gs on this single AP portab le view of the chest. CXR 3: No acute pulmon michael findin gs on this single AP portab le view of the chest. Sterno ariel wires. Mild cardio megaly . Echo: Mild concen tric left ventri cular hypert rophy. Ejecti on fracti on is 55%. No segmen niki wall motion abnorm alitie s are identi fied. Patien t is in atrial fibril lation with a border line rate and beat-t o-beat variat ion Normal right ventri cular size and systol ic functi on Left atrium is modera tely enlarg ed. Right atrium is mildly enlarg ed Aortic valve is sclero tic withou t stenos is or regurg itatio n Normal mitral valve with mild regurg itatio n Normal tricus pid valve with modera te regurg itatio n. Estima thelma right ventri cular systol ic pressu re is 39 mmHg Mildly dilate d ascend ing aorta 3.56 cm Labs on day of discha rge: Labs from last 24 hours 06:38 13:15 Sodium 142 Potass ium 3.8 Chlori de 104 Carbon Dioxid e 30.4 Anion Gap 7.6 BUN 23 H Creati nine 1.0 Est GFR (CKD-E PI 2020) 59.86 Glucos e 181 H Calciu m 9.6 Magnes ium 2.0 Tropon in I < 50 PFSH All Active Proble ms (Updat ed @ 13:28 by Shalonda Richardson MD) URI (upper respir atory infect ion) (Acute ) Atrial fibril lation with rapid ventri cular respon se (Acute ) Tachyc ardia (Acute ) COPD (chron ic obstru ctive pulmon michael diseas e) (Chron ic) Atrial fibril lation (Chron ic ) Hypert ension (Chron ic) CAD (coron michael artery diseas e) (Chron ic) a. drug elutin g stents Obesit y (Chron ic) BMI 33.0-3 3.9,ad ult (Chron ic) Osteoa rthrit is (Chron ic) H/O carpal tunnel syndro me (Chron ic) Chroni c low back pain (Chron ic) H/O hyperc alcemi a (Chron ic) H/O hyperp arathy roidis m (Chron ic) a. Surger y to remove adenom as Osteop enia (Chron ic) Psoria sis (Chron ic) Elevat ed hemato crit (Chron ic) Elevat ed hemogl obin (Chron ic) Impair ed fastin g glucos e (Chron ic) Metabo lic syndro me (Chron ic) a. trigly ceride s greate r than 300 and HDL less than 30 Hypert ensive CKD (chron ic kidney diseas e) (Chron ic) A. probab ly stage 1 or 2 B. baseli ne creati nine 1.1 to 1.2 Sepsis (Acute ) Predia betes (Acute ) Erythr ocytos is (Chron ic) Abnorm al LFTs (Acute ) Hypoma gnesem ia (Acute ) Acute CHF (Acute ) Discha rge planni ng issues (Acute ) DVT prophy laxis (Acute ) Modera te pulmon michael arteri al systol ic hypert ension (Chron ic) Acute renal insuff icienc y (Acute ) Post-m enopau celeste bleedi ng (Acute ) Chroni c atrial fibril lation with rapid ventri cular respon se (Acute ) Pneumo lino (Acute ) Acute kidney injury superi mposed on chroni c kidney diseas e (Acute ) Periph eral neurop athy (Acute ) Lung nodule (Acute ) CHF (conge stive heart failur e) (Chron ic) Exerti onal shortn ess of breath (Acute ) Diabet es mellit us (Chron ic) Fatigu e (Acute ) Increa sed sputum produc tion (Acute ) Snorin g (Acute ) Season al allerg ies (Acute ) Hyperl ipidem ia (Acute ) Skin lesion (Acute ) Emphys justen lung (Acute ) Thyroi d nodule (Acute ) Medica l Histor y (Updat ed @ 13:28 by Shalonda Richardson MD) Degene rative joint diseas e of right hip Catara cts, bilate ral Trigge r finger , right index finger Rosace a Leg pain, right Loss of balanc e 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 CKD (chron ic kidney diseas e) Pulmon michael hypert ension Muscle spasm Rhinit is PONV (posto perati ve nausea and vomiti ng) Acute bronch itis Surgic al Histor y (Revie tue @ 11:39 by Shalonda Richardson MD) H/O benign neopla sm resect ed Hx of cardia c cath 2 stents H/O parath yroide ctomy s/p 2 stents Family Histor y (Revie tue @ 11:39 by Shalonda Richardson MD) Other Heart diseas e Social Histor y (Revie tue @ 11:39 by Shalonda Richardson MD) 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 Time Spent with Patien t Time Spent with Patien t: 45-69 minute s Time was spent: prepar ing to see the patien t(eg.r eview tests) , obtain ing and/or review ing separa teljaison dunlap d hiisto ry, orderi ng medica tions, tests, proced ures, referr ing, commun doug chelsie with other health care profes sichelly s, indepe ntentl y interp reting result s, mariluz nolan the patien t and care [facility] CC: ------ ------ ------ ------ ------ ------ ------ ------ ------ ------ ------ --- Dictat ed by: MARNIE LANGFORD MD Dictat ed: Time: 07 17 Date: 3 Time: 1337 Transc ribed Date: Transc ribed Time: 1231 By: TEJAL This is privil eged, confid ential inform ation, intend ed only for the provid er named. Any use or distri bution by any person other than this provid er is strict ly prohib ited. If you receiv e this report in error, please notify us immedi kurtisly at and return the origin al report to us at the addres s above. Thank you. [email or web address] [facility] [address], [place], [address] 06/22/2023 11:41:33 06/21/2006/20/2023 initi al care manag ement asses s Initia l Care Manage ment Assess PATIEN T NAME: Austin Aden isreal Early UNIT #: [id number] ADMITT ING PROVID ER: Hought on,Can dace ACCOUN T #: [id number] PRIMAR Y CARE PROVID ER: DANILO FAY,ABB Y DATE OF ADMIT: [birth year] : 1950 Date of servic e: Time of Servic e: 13:07 Care Manage ment Initia l Assmt Initia l Assess ment REASON FOR HOSPIT ALIZAT ION:: Rapid Afib PREVIO US FUNCTI ONAL STATUS /SOCIA L/FAMI LY SUPPOR TS:: Edwige lives alone in a single family home in [facility]. It is on 2 levels with the bedroo ms being upstai rs. She has been widowe d for 27 years. Edwige worked for [employer] for many years but is now retire d. 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 Edwige has 2 childr en and 3 grandc hildre n who live locall y and are very suppor tive.Chelsie chaves also identi fies that her neighb ors are very helpfu l. ADVANC E DIRECT RAYNA:: None on file. Has patien t been provid ed with info about the portal /API?: Yes Did the patien t sign up for the portal ?: No CODE STATUS :: DNR/DN I INSURA NCE COVERA GE / FINANC IAL ISSUES :: Medica re. [employer] PRIMAR Y CARE PHYSIC ASHLEY:: Heath Carrasco POTENT IAL DISCHA RGE NEEDS: : Follow up with PCP and discha rge plan of care PATIEN T/FAMI LY EDUCAT ION NEEDS: : Discha rge plan, limita tions, follow up and Ask Me Three ANTICI PATED RICHARD RS TO DISCHA RGE:: None identi fied. TRANSP ORTATI ON:: via privat e vehicl e with friend s/fami ly when ready PLAN:: Edwige will likely discha rge home with no new servic es. She will transp ort with family and follow up with her PCP and discha rge plan of care. CM will contin ue to suppor t patien t, family and discha rge plans. PFSH All Active Proble ms (Updat ed @ 13:28 by Shalonda Richardson MD) URI (upper respir atory infect ion) (Acute ) Atrial fibril lation with rapid ventri cular respon se (Acute ) Tachyc ardia (Acute ) COPD (chron ic obstru ctive pulmon michael diseas e) (Chron ic) Atrial fibril lation (Chron ic ) Hypert ension (Chron ic) CAD (coron michael artery diseas e) (Chron ic) a. drug elutin g stents Obesit y (Chron ic) BMI 33.0-3 3.9,ad ult (Chron ic) Osteoa rthrit is (Chron ic) H/O carpal tunnel syndro me (Chron ic) Chroni c low back pain (Chron ic) H/O hyperc alcemi a (Chron ic) H/O hyperp arathy roidis m (Chron ic) a. Surger y to remove adenom as Osteop enia (Chron ic) Psoria sis (Chron ic) Elevat ed hemato crit (Chron ic) Elevat ed hemogl obin (Chron ic) Impair ed fastin g glucos e (Chron ic) Metabo lic syndro me (Chron ic) a. trigly ceride s greate r than 300 and HDL less than 30 Hypert ensive CKD (chron ic kidney diseas e) (Chron ic) A. probab ly stage 1 or 2 B. baseli ne creati nine 1.1 to 1.2 Sepsis (Acute ) Predia betes (Acute ) Erythr ocytos is (Chron ic) Abnorm al LFTs (Acute ) Hypoma gnesem ia (Acute ) Acute CHF (Acute ) Discha rge planni ng issues (Acute ) DVT prophy laxis (Acute ) Modera te pulmon michael arteri al systol ic hypert ension (Chron ic) Acute renal insuff icienc y (Acute ) Post-m enopau celeste bleedi ng (Acute ) Chroni c atrial fibril lation with rapid ventri cular respon se (Acute ) Pneumo lino (Acute ) Acute kidney injury superi mposed on chroni c kidney diseas e (Acute ) Periph eral neurop athy (Acute ) Lung nodule (Acute ) CHF (conge stive heart failur e) (Chron ic) Exerti onal shortn ess of breath (Acute ) Diabet es mellit us (Chron ic) Fatigu e (Acute ) Increa sed sputum produc tion (Acute ) Snorin g (Acute ) Season al allerg ies (Acute ) Hyperl ipidem ia (Acute ) Skin lesion (Acute ) Emphys justen lung (Acute ) Thyroi d nodule (Acute ) Medica l Histor y (Updat ed @ 13:28 by Shalonda Richardson MD) Degene rative joint diseas e of right hip Catara cts, bilate ral Trigge r finger , right index finger Rosace a Leg pain, right Loss of balanc e 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 CKD (chron ic kidney diseas e) Pulmon michael hypert ension Muscle spasm Rhinit is PONV (posto perati ve nausea and vomiti ng) Acute bronch itis Surgic al Histor y (Revtue @ 11:39 by Shalonda Richardson MD) H/O benign neopla sm resect ed Hx of cardia c cath 2 stents H/O parath yroide ctomy s/p 2 stents Family Histor y (Tue @ 11:39 by Shalonda Richardson MD) Other Heart diseas e Social Histor y (Revtue @ 11:39 by Shalonda Richardson MD) 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 cc: ------ ------ ------ ------ ------ ------ ------ ------ ------ ------ ------ --- Dictat ed by: Cristiano Evans Dictat ed: Time: 1307 Date: 1644 Date: Date: Transc ribed Date: Transc ribed Time: 130 By: YONIS Torres This is privil eged, confid ential inform ation, intend ed only for the provid er named. Any use or distri bution by any person other than this provid er is strict ly prohib ited. If you receiv e this report in error, please notify us immdelmy amador at and return the origin al report to us at the addres s above. Thank you. 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 Visits : 0 Answer s: Total Score: 5 Risk of Readmi ssion: Low Risk Care Manage ment Discha rge Plan Reason for Hospit alizat ion: Rapid Afib Discha rge Plan: Edwige will discha rge home with no new servic es. She will transp ort with family and follow up with her PCP and discha rge plan of care. Rochelle car/Suki ly Educat ion Needs: Review discha rge instru ctions , sunil s Ask Me Three . cc: ------ ------ ------ ------ ------ ------ ------ ------ ------ ------ ------ --- Dictat ed by: Susy Cristiano ayala joaquina Dictat ed: Time: 1643 Date: 1647 Date: Date: Transc ribed Date: Transc ribed Time: 1643 By: YONIS Torres This is privil eged, confid ential inform ation, intend ed only for the provid er named. Any use or distri bution by any person other than this provid er is strict ly prohib ited. If you receiv e this report in error, please notify us immedi ately at and return the origin al report to us at the addres s above. Thank you. [email or web address] [facility] [address], [place], [address] 06/22/2023 10:01:51 06/24/20 23 01/17/2023 US, thyro id No observ ation record ed. [email or web address] Not Available 06/24/2023 16:03:34 06/24/20 23 05/13/2022 CT, chest , w/o contr ast No observ ation record ed. Not Available 06/24/2023 16:04:07 07/14/20 23 07/14/2023 US, duple x, venou s, lower extre mity, unila teral No observ ation record ed. [email or web address] Not Available 07/14/2023 15:08:42 07/14/20 23 07/14/2023 ultra sound imagi ng repor t Rochelle t Name: Jamari richardsonAustin Early Unit #: [id number] Loc: DI Orderi ng Provid er: Heath Carrasco Accoun t #: [id number] Status : REG CLI Primar y Care Provid er: Heath Carrasco Date of Exam: Sex: F Admiss ion Date: : 1950 Age: 72 Exam(s ) US LOWER EXTREM ITY VENOUS RT EXAM: US LOWER EXTREM ITY VENOUS RT CLINIC AL HISTOR Y: RT LOWER LIMB EDEMA, R60.0. TECHNI QUE: Lower extrem ity venous ultras ound perfor med using graysc kayleen, color- flow, and spectr al Dopple r analys is. COMPAR LUCY: No exams were availa ble for compar lucy FINDIN GS: The common femora l, femora l and poplit eal veins demons trate normal compre ssibil ity, augmen tation , and color Dopple r. The convict guard ior tibial veins are patent . No saphen ous vein thromb osis or other superf icial venous thromb osis is seen. No hemato ma or Alejandra' s cyst is seen. Mild edema lower leg. IMPRES ROMAN: No eviden ce of DVT. DATA REPOSI TORY: Ordere d By: Heath Carrasco CC: ------ ------ ------ ------ ------ ------ ------ ------ ------ ------ ------ ------ - Dictat ed By: Pawan Sandra [id number] Transc ribed By: Jeri Brown 1353 This is privil eged, confid ential inform ation intend ed only for the provid er named. Any use or distri bution by any person other than this provid er is strict ly prohib ited. If you receiv e this report in error, please notify us immedi ately at and return the origin al report to us at the addres s above. Thank- you. [email or web address] [facility] [address], [place], [address] 07/14/2023 15:36:19 07/25/19 24 07/25/2023 MAMMO , diagn ostic , digit al, bilat lizandro car Name: Austin Aden gracetatiana Early Unit #: [id number] Loc: DI Orderi ng Provid er: Heath Carrasco Accoun t #: [id number] Status : REG CLI Primar y Care Provid er: Heath Carrasco Date of Exam: Sex: F Admiss ion Date: : 1950 Age: 72 Exam(s ) MG MAMMO DIAGNO STIC BI EXAM: MG MAMMO DIAGNO STIC BI CLINIC AL HISTOR Y: DIAGNO STIC,N EW RT BREAST PAIN. TECHNI QUE: Cranio caudal and mediol ateral obliqu e Full Field Digita l Mammog my views with Comput er Aided Diagno sis follow ed by Inocencio nuñez COMPAR LUCY: Compar lucy is made with prior examin ations . FINDIN GS: Mammog my/ Inocencio coronado s: Masses /Archi tectur al Distor tion: None seen. Microc alcifi ctions : No suspic ious pleomo rphic- type are seen. Skin Thicke jenn/N ipple Retrac tion: None. IMPRES ROMAN: 1. No eviden ce of malign rose is noted. 2. Unless there is more urgent need, follow -up screen ing mammog my is recomm ended, as per [facility] y guidel lyric. 3. The findin gs were discus sed with the patien t on the date of the examin ation. BI-RAD S Catego ry 1 - Negati ve Breast Densit y - Catego ry B - Scatte red areas of fibrog landul ar densit y Breast densit y Catego ry C or D implie s that the patien t has dense breast tissue . Dense breast tissue can make it harder to find cancer on a mammog ladan. Dense breast tissue is also associ ated with an increa sed risk of breast cancer . This inform ation about the result of the mammog ladan report was provid ed to the patien t to raise their awaren ess. Use this report when you speak with the patien t about their risks for breast cancer , which includ es their family histor y. At that time, you may recomm end additi onal screen ing tests (Ultra sound or MRI) as these tests may add signif icant inform ation. A negati ve radiog raphic report should not delay biopsy if a domina nt or clinic ally suspic ious mass is presen t. Up to ten percen t of cancer s are not identi fied on mammog my. A negati ve report may reinfo rce clinic al impres roman. Adenos is and dense breast s may obscur e an underl khushbu neopla sm. False positi ve report s averag e 6 to 10%. Patien t will receiv e a letter notify ing them of these result sBabar Morales d By: Heath Carrasco CC: ------ ------ ------ ------ ------ ------ ------ ------ ------ ------ ------ ------ - Dictat ed By: Espinoza Sterling M.D. 930 Transc ribed By: Espinoza Sterling 930 This is privil eged, confid ential inform ation intend ed only for the provid er named. Any use or distri bution by any person other than this provid er is strict ly prohib ited. If you receiv e this report in error, please notify us immedi ately at and return the origin al report to us at the addres s above. Thank- you. [email or web address] [facility] (Radiology) [address] [place] [address] [place], [address], 01/28/2024 14:40:17 07/25/19 24 07/25/2023 MAMMO , scree jenn, bilat eral No observ ation record ed. [facility] (Radiology) [address] [place] [address] [place], [address], 07/26/2023 07:04:13 12/06/19 24 12/02/2023 CT, chest , w/o contr ast No observ ation record ed. Not Available 12/06/2023 12:58:46 01/12/20 24 01/11/2024 vrad repor t Rochelle t Name: Austin Aden Unit #: [id number] Loc: ER Orderi ng Provid er: Accoun t #: [id number] Status : REG ER Primar y Care Provid er: Heath Carrasco Date of Exam: Sex: F : 1950 Age: 73 Exam(s ) PROCED URE INFORM ATION: Exam: XR Chest Exam date and time: 024 11:09 PM Age: 73 years old Clinic al indica tion: Other: SOB, HTN, afib TECHNI QUE: Imagin g protoc ol: Radiol ogic exam of the chest. Views: 1 view. COMPAR LUCY: CR XR PORTAB LE CHEST AP 023 11:10 AM FINDIN GS: Lungs: No cortes airspa ce consol idatio n on portab le imagin g. Pleura l spaces : No defini te pleura l effusi on. No pneumo thorax . Heart/ Medias tinum: Modera te cardio megaly and mild centra l vascul ar conges tion are both slight ly more pronou nced. Bones/ joints : Median sterno ariel wires. IMPRES ROMAN: Modera te cardio megaly and mild centra l vascul ar conges tion are both slight ly more pronou nced. Dictat ed and Peter boykin d by: Ozzy Avina MD. Orderradha castro:PSal ISST Tommy gutierrez MD Access ion#=[id number] Andrew early By: CC: ------ ------ ------ ------ ------ ------ ------ ------ ------ ------ ------ ------ ---- Dictat ed By: Report s vrad 2308 0034 Transc ribed By: Di Merge 2308 This is privil eged, confid ential inform ation intend ed only for the provid er named. Any use or distri bution by any person other than this provid er is strict ly prohib ited. If you receiv e this report in error, please notify us immedi kurtisly at and return the origin al report to us at the addres s above. Thank- you. [email or web address] [facility] [address] [place], [address] 01/12/2024 15:50:28 01/12/20 24 01/12/2024 x-ray imagi matthew car Name: Austin Aden isreal Early Unit #: [id number] Loc: MS Logan castro Provid er: Maria G Rowe M.D. Accoun t #: [id number] Status : ADM IN Primar y Care Provid er: Heath Carrasco Date of Exam: Sex: F Admiss ion Date: : 1950 Age: 73 Exam(s ) XR PORTAB LE CHEST AP EXAM: XR PORTAB LE CHEST AP CLINIC AL HISTOR Y: sob, htn, afib TECHNI QUE: 2D digita l imagin g was perfor med of the chest. One image was obtain ed. An AP view was obtain ed. COMPAR LUCY: CR XR CHEST 2V PA LATERA L from 2018 CR,XR XR PORTAB LE CHEST AP from 2022 CR,XR XR PORTAB LE CHEST AP from 2022 FINDIN GS: MEDIAS TINUM: Normal . HEART: Mild cardio megaly . PULMON MICHAEL VASCUL ATURE: There is pulmon michael venous conges tion. LUNGS: No focal consol idatin g infilt rates. PLEURA L SPACE: No pleura l effusi on or pneumo thorax . BONE:W ithin normal limits for the patien t's age. Sterna l wires are in place. OTHER FINDIN GS:Nor mal. IMPRES ROMAN: Cardio megaly and pulmon michael venous conges tion. This can be seen with fluid overlo ad. DATA REPOSI TORY: RADIAT ION DOSE DELIVE RED: Ordere d By: Maria G Rowe M.D. CC: ------ ------ ------ ------ ------ ------ ------ ------ ------ ------ ------ ------ - Dictat ed By: Espinoza Sterling M.D. 0753 0753 Transc ribed By: Espinoza Sterling 0753 This is privil eged, confid ential inform ation intend ed only for the provid er named. Any use or distri bution by any person other than this [facility] er is strict ly prohib ited. If you receiv e this report in error, please notify us immedi ately at and return the origin al report to us at the addres s above. Thank- you. [email or web address] [facility] [address] [place], [address] 01/12/2024 15:50:29 01/12/20 24 01/12/2024 , echoc isabel car Name: Austin Aden Unit #: [id number] Loc: MS Ford ng Provid er: Arpit Aden vid Acckyaw t #: [id number] Status : ADM IN Primar y Care Provid er: Heath Carrasco Date of Exam: Sex: F Admiss ion Date: : 1950 Age: 73 ------ ------ --- APPROV ED REPORT ------ ------ -- EXAM: Compre hensiv e 2D, Dopple r, and color- flow Echoca rdiogr am Rochelle car Locati on: In-Pat ient Room/B ed: 208 Sonogr apher: Jalyn Steven , RDZACK (AE) Indica tions: Exacer bation CHF with atrial fibril lation and RVR Other Inform ation Study Qualit y: Fair. Techni adriana limite d study due to body habitu s, exam done supine . Conclu roman Normal left ventri cular wall thickn ess and chambe r size. Ejecti on fracti on is 50 to 55%. There are no segmen niki wall motion abnorm alitie s Normal right ventri cular size and functi on Modera tely enlarg ed left atrium , mildly enlarg ed right atrium Aortic valve is sclero tic and trilea flet withou t stenos is or regurg itatio n Estima thelma right ventri cular systol ic pressu re is 26 mmHg Ascend ing aorta measur es 3.5 cm No signif icant change compar ed to study from 2022 Wall motion Left Ventri mickey The left ventri mickey is normal size. Left ventri cular systol ic functi on is mildly decrea sed. Mild concen tric left ventri cular hypert rophy. No segmen niki wall motion abnorm alitie s There is no ventri cular septal defect visual ized. LVEF is 50-55% . Right Ventri mickey The right ventri mickey is normal size. The right ventri cular systol ic functi on is normal . Atria Left atrium is modera tely dilate d. Right atrium is mildly dilate d. The intera trial septum is intact with no eviden ce for an atrial septal defect . Aortic Valve The Aortic valve is sclero tic. Aortic valve is trilea flet. There is no aortic valvul ar stenos is. No aortic regurg itatio n is presen t. Mitral Valve Mild mitral annula r calcif icatio n. No eviden ce of mitral valve stenos is. Trace mitral regurg itatio n. Tricus pid Valve The tricus pid valve is normal in struct ure. There is no tricus pid valve stenos is. Mild to modera te tricus pid regurg itatio n. The RVSP is 26.4 mmHg. Pulmon ic Valve The pulmon michael valve is normal in struct ure. There is no pulmon ic valvul ar stenos is. There is no pulmon ic valvul ar regurg itatio n. Great Vessel s The aortic root is normal in size. The ascend ing aorta is mildly dilate d. IVC is normal in size and collap ses >50% with inspir ation. 2D Dimens ions IVSD d PLAX 1.10 cm F: 0.6-1. 0 Ao Root d 3.15 cm F: 2.7 - 3.3 LVPW d PLAX 1.11 cm F: 0.6 - 1.0 Ao Asc Diam d 3.50 cm F: 2.3 - 3.1 LVID d PLAX 4.22 cm F: 3.8 - 5.2 LVDs 3.22 cm F: 2.2 - 3.5 LV EF Teichh olz 47.7 % FS 23.72 % LV EDV (Teich ) 79.3 mL LV ESV (Teich ) 41.5 mL M-Mode TAPSE 0.88 cm (M/F) >1.7 Auto EF LV EDV A4C 78.6 mL LV EDV A2C 78.3 mL LV EDV BP 78.7 mL LV ESV A4C 43.3 mL LV ESV A2C 43.7 mL LV ESV BP 43.6 mL LVEF(% ) A4C 44.9 % LVEF(% ) A2C 44.1 % LVEF(% ) BP 44.5 % LV SV A4C 35.3 ml LV SV A2C 34.5 ml LV SV BP 35.0 ml LV CO A4C 2.9 L/min LV CO A2C 2.8 L/min LV CO BP 2.8 L/min HR A4C 82.20 BPM HR A2C 80.00 BPM LV EDV Index (BP) LA Volume LA Length A4C 6.2 cm LA Length A2C 6.3 cm LA Area A4C s 18.34 cm2 LA Area A2C s 23.35 cm2 LA Vol A4C A-L 46.32 mL LA Vol A2C A-L 73.71 mL LA Vol Biplan e A-L 59.0 mL LA Vol/BS A A4C A-L LA Vol/BS A A2C A-L LA Vol/BS A BP A-L 31.0 mL/m2 LA Vol A4C MOD 43.6 mL LA Vol A2C MOD 69.3 mL LA Vol BP MOD 55.3 mL RA Volume RA Area A4C 11.9 cm2 RA ESV A4C (A-L) 25.5mL RA Vol/BS A A4C A-L RA Length A4C 4.7 cm RA ESV A4C (MOD) 23.3mL LV Diasto logy MV E' medial 0.055 (>0.07 m/s) MV E Vmax 1.02 (0.4-1 .3 m/s) MV E/E' MED 18.42 (<14) Aortic Valve AoV Vmax 1.32 m/s LVOT Vmax 0.79 m/s AoV Peak Grad 7.1 mmHg LVOT Peak Grad 2.5 mmHg AoV Area (Vmax) 1.88 cm2 LVOT VTI 0.119 m AoV VTI 0.230 m LVOT Mean Grad 1.5 mmHg AoV Mean Crow. 0.97 m/s LVOT SV 37.31 mL AoV Mean Grad 4.3 mmHg LVOT Diam s 2.00 cm AoV Area (VTI) 1.63 cm2 Veloci ty Ratio 0.60 Mitral Valve MV DT 162 (160-2 40 msec) MV Vmax TIPS 1.26 m/s MV Mean Grad 1.4 (<2mmH g) MV VTI 0.401 m Pulmon michael Valve PV Vmax 0.84 (0.5-1 .5 m/s) RVOT Vmax 0.51 m/s PV Peak Grad 2.8 mmHg RVOT Peak Gr. 1.0 mmHg PV Mean Crow 0.63 m/s RVOT VTI 0.105 m PV Mean Grad 1.7 mmHg RVOT Mean Gr. 0.7 mmHg Tricus pid Valve RA Pressu re 3.00 mmHg TR Vmax 2.40 m/s TV S' 0.08 m/s TR Peak Grad 23.3 mmHg RVSP (TR) 26.4 mmHg Ordere d By: Arpit Aden CC: ------ ------ ------ ------ ------ ------ ------ ------ ------ ------ ------ ------ - Dictat ed By: Shalonda Richardson M.D. 1126 1215 Transc ribed By: Shalonda Richardson MD 1126 This is privil eged, confid ential inform ation intend ed only for the provid er named. Any use or distri bution by any person other than this provid er is strict ly prohib ited. If you receiv e this report in error, please notify us immedi ately at [phone] and return the origin al report to us at the addres s above. Thank- you. [email or web address] [facility] [address] , [place], [address] 01/23/2024 09:17:09 01/18/20 24 01/18/2024 elect rocar diogr am No observ ation record ed. [email or web address] [address], [address], 01/24/2024 15:41:11 01/25/20 24 01/25/2024 elect rocar diogr am No observ ation record ed. [address], [address], 01/31/2024 15:26:40 01/26/20 24 elect rocar diogr am No observ ation record ed. [facility] [address], [address], 01/26/2024 14:27:03 01/26/20 24 elect rocar diogr am No observ ation record ed. [facility] [address], [address], 01/26/2024 14:26:35 02/14/20 24 02/14/2024 rhyth m strip , EKG* No observ ation record ed. [facility] [address], [place], [address], 02/16/2024 09:41:57 02/16/20 24 elect rocar diogr am No observ ation record ed. [email or web address] [address], [address], 02/17/2024 14:26:30 Result Notes None recorded. Problems Name Status Onset Date Resolution Date Notes Provider Name and Address Organization Details Recorded Time Bone density finding Active 2008 [facility] 4 20:41:59 History of clinical finding in subject Active 2008 Not Available [facility] 3 03:49:56 Essential hypertension Active 2001 [facility] 4 20:37:26 Atheroscleros is of coronary artery without angina pectoris Active 2007 KARYNA to LAD and RCA [facility] 4 20:38:50 Hyperparathyr oidism Active 2008 [facility] 4 20:44:52 [facility] 4 20:46[facility]29 Atrial fibrillation Active 2013 [facility] 4 20:37:18 Polycythemia vera (clinical) Active 2013 [facility] 4 20:46:24 Obesity Active 2013 [facility] 4 20:45:34 Osteoarthriti s Active 2013 [facility] 4 20:45:47 Type 2 diabetes mellitus without complication Active 2013 [facility] 4 20:38:17 Chronic kidney disease Active 2013 [facility] 4 20:42:56 Otalgia of right ear Completed 201611/04/2016 10/21/2016 - Comments only - 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 I am not entirely sure what the black material is, but believe it is most likely a scab. When she used the q-tip yesterday she likely freed the scab, causing some scant bleeding. We reviewed ear hygiene and I advised her to discontinue using q-tips for ear cleaning. She admits that she may be doing this too often and agrees to stop. Advised her to return if her ear pain does not improve, if her hearing or baclances changes, if she develops dizziness, or if she has any discharge from the ear. Also advised return for any new concerning symptoms. Problem Code: H92.01; Problem Code Type: ICD-10; Not Available [facility] 3 03:49:58 Hyperlipidemi a Active 2016 [facility] 4 20:44:47 Snoring Active 2018 [facility] 4 20:46:46 Seasonal allergic rhinitis Active 2018 Reinaldo soriano, [facility]. 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. 4 20:40:36 Idiopathic osteoarthriti s Active 2020 Reinaldo Banerjee null, [facility]. 4 20:45:10 Breast composition Active 202004/06/2022 - Comments only - Heath Carrasco MOTION PICTURE OPERATOR - Image was less concerning on recheck. Recommend to resume routine mammograms 06/2022. Not Available [facility] 3 03:50:00 Dyspnea Active 2021 Reinaldo Banerjee null, [facility] 4 20:44:14 Heart failure Active 2021 [facility]. 4 20:44:40 Non-toxic uninodular goiter Active 2022 [facility] 4 20:45:28 Pulmonary hypertension Active 2022 [facility] 4 20:46:34 Spasm of back muscles Active 2022 [facility] 4 20:46:50 Common cold Completed 202203/24/2023 Problem Code: J00; Problem Code Type: ICD-10; Not Available [facility] 3 03:50:04 Chronic renal impairment Completed 201304/13/2023 Problem Code: 585.9; Problem Code Type: ICD-9; Not Available [facility] 3 03:50:07 Pain in left foot Completed 201908/21/2020 Problem Code: M79.672; Problem Code Type: ICD-10; Not Available [facility] 3 03:50:08 Abnormal sputum Completed 201806/15/2022 Problem Code: R09.3; Problem Code Type: ICD-10; Not Available [facility] 3 03:50:08 Sepsis Completed 201908/08/2019 Problem Code: A41.9; Problem Code Type: ICD-10; Not Available [facility] 3 03:50:08 Coronary arteriosclero sis Completed 200704/13/2023 Not Available [facility] 3 03:50:08 Hypertensive disorder Completed 200104/13/2023 Not Available [facility] 3 03:50:09 Disorder of skin and/or subcutaneous tissue Active 2018 Problem Code: L98.9; Problem Code Type: ICD-10; Not Available [facility] 4 05:36:17 Asteatosis cutis Completed 201708/21/2020 Problem Code: L85.3; Problem Code Type: ICD-10; Not Available [facility] 3 03:50:09 Screening mammography Completed 201604/06/2022 Problem Code: Z12.31; Problem Code Type: ICD-10; Not Available [facility] 3 03:50:10 Acute upper respiratory infection Completed 201502/17/2016 Problem Code: J06.9; Problem Code Type: ICD-10; Not Available [facility] 3 03:50:10 History of disorder of digestive system Completed 202203/14/2023 Problem Code: Z87.19; Problem Code Type: ICD-10; Not Available [facility] 3 03:50:10 Dyspnea Completed 201908/21/2020 Problem Code: R06.02; Problem Code Type: ICD-10; Reinaldo [facility] 4 20:44:14 Pain in right hip joint Completed 201308/21/2020 Problem Code: M25.551; Problem Code Type: ICD-10; Not Available [facility] 3 03:50:11 Pre-surgery evaluation Completed 202011/19/2020 Problem Code: Z01.818; Problem Code Type: ICD-10; Not Available [facility] 3 03:50:11 Bursitis of right knee Completed 201508/21/2020 Problem Code: M70.51; Problem Code Type: ICD-10; Not Available [facility] 3 03:50:11 Vaginal bleeding Completed 201911/19/2020 Not Available [facility] 3 03:50:12 Pain in lower limb Completed 201604/06/2022 Problem Code: M79.606; Problem Code Type: ICD-10; Not Available [facility] 3 03:50:12 Polyneuropath y Completed 201908/21/2020 Problem Code: G62.9; Problem Code Type: ICD-10; Not Available [facility] 3 03:50:13 Dyspnea Completed 201804/13/2023 Problem Code: R06.02; Problem Code Type: ICD-10; [facility] 4 20:44:14 Malaise Completed 201904/13/2023 09/14/2019 - Comments only - Heath LEON - Edwige would like referal to physical therapy for deconditionin g. I think this would be an excellent intervention for Edwige, especially after recent illness. Referal placed. Problem Code: R53.81; Problem Code Type: ICD-10; Not Available [facility] 3 03:50:15 Congenital deformity of foot Completed 201910/10/2019 Problem Code: Q66.89; Problem Code Type: ICD-10; Not Available [facility] 3 03:50:16 Bronchitis Completed 201805/01/2019 Problem Code: J40; Problem Code Type: ICD-10; Not Available [facility] 3 03:50:16 Diabetes mellitus Completed 201304/13/2023 Not Available [facility] 3 03:50:17 Acute right-sided heart failure Completed 202104/13/2023 Problem Code: I50.811; Problem Code Type: ICD-10; Not Available [facility] 3 03:50:17 Osteopenia Completed 200804/13/2023 Not Available [facility] [facility] 3 03:50:18 Dysuria Completed 201908/21/2020 Problem Code: R30.0; Problem Code Type: ICD-10; Not Available [facility] 3 03:50:19 Cough Completed 201808/21/2020 Problem Code: R05; Problem Code Type: ICD-10; Not Available [facility] 3 03:50:19 Multiple nodules of lung Active [address], [place], [address] , [facility] 3 11:40:00 Malignant tumor of lung Active [address], [facility] [address] , [facility] 3 11:40:57 Tricuspid valve regurgitation Active [address], [place], [address] , [facility] 3 09:57:12 Aneurysm of ascending aorta Active 2022 3.56 CM dilation on echo completed 06/19/[address], [facility] [address] , [facility] 3 09:57:54 Thyroid nodule Active [address], [place], [address] , [facility] 3 10:25:41 Edema of right lower limb Active [address], [facility] [address] , [facility] 3 14:23:37 Non-cardiac chest pain Active [address], [facility] [address] , [facility] 3 11:11:43 Pain of right breast Active [address], [place], [address] , [facility] 3 11:13:05 Problem Notes None recorded. Procedures Surgical History Date Name Laterality Status Provider Name and Address Organization Details Recorded Time 4 Date of Last Mammogram completed Unique Fields RN null, [facility] 07/26/2023 07:03:02 2 Most Recent Mammogram completed ADALID BLACKBURN CMA null, [place] - [facility]. 06/28/2023 11:48:21 Date of Last Pap Smear completed CURLY HOWARD, [place] - [facility] 06/28/2023 11:48:11 Imaging Results Imaging Date Name Status LastModified by Organization Details LastModified Time 06/19/2023 electrocardiogram completed [email or web address] [place], [address] 06/22/2023 10:01:44 06/19/2023 vrad report completed [email or web address] [address] [place], [address] 06/22/2023 10:01:43 06/19/2023 ED visit note completed [address] [place], [address] 06/22/2023 10:01:43 06/19/2023 ED progress note completed [email or web address] [address] [place], [address] 06/22/2023 10:01:45 06/19/2023 vrad report completed [email or web address] [address] [place], [address] 06/22/2023 10:01:46 06/19/2023 history physical examination completed [address] [place], [address] 06/22/2023 10:01:45 06/19/2023 x-ray imaging report completed Jaz [address] [place], [address] 06/22/2023 10:01:46 06/19/2023 [facility]-ray imaging report [email or web address] [address] [place], [address] 06/22/2023 10:01:47 06/20/2023 progress note completed [email or web address] [address] [place], [address] 06/22/2023 10:01:47 06/20/2023 electrocardiogram completed [email or web address] [address] [place], [address] 06/22/2023 10:01:47 06/19/2023 electrocardiogram completed [email or web address] [address] [place], [address] 06/22/2023 10:01:44 06/20/2023 ultrasound imaging report completed [email or web address] [address] [place], [address] 06/22/2023 10:01:48 06/20/2023 progress note [email or web address] [address] [place], [address] 06/22/2023 10:01:48 06/20/2023 cardiology consultation completed [email or web address] [address] [place], [address] 06/22/2023 10:01:49 06/20/2023 electrocardiogram completed [address] [place], [address] 06/22/2023 10:01:50 06/20/2023 nutrition note completed Salomee rn [address] [place], [address] 06/22/2023 10:01:50 06/21/2023 discharge summary completed [email or web address] [address] [place], [address] 06/22/2023 11:41:33 06/20/2023 initial care management assess completed [address] [place], [address] 06/22/2023 10:01:49 06/21/2023 care management discharge completed [email or web address] [address] [place], [address] 06/22/2023 10:01:51 01/17/2023 US, thyroid completed Information n ot available 06/24/2023 16:03:34 05/13/2022 CT, chest, w/o contrast completed Information not available 06/24/2023 16:04:07 07/14/2023 US, duplex, venous, lower extremity, unilateral completed Information not available 07/14/2023 15:08:42 07/14/2023 ultrasound imaging report completed [address] [place], [address] 07/14/2023 15:36:19 07/25/2023 MAMMO, diagnostic, digital, bilateral completed [email or web address] [facility] (Radiology) [address] [place] [address] [place], [address], 01/28/2024 14:40:17 07/25/2023 MAMMO, screening, bilateral completed [facility] (Radiology) [address] [place] [address] [place], [address], 07/26/2023 07:04:13 12/02/2023 CT, chest, w/o contrast completed Information not available 12/06/2023 12:58:46 01/11/2024 vrad report completed [email or web address] [address] [place], [address] 01/12/2024 15:50:28 01/12/2024 x-ray imaging report completed [email or web address] [place], [address] 01/12/2024 15:50:29 01/12/2024 US, echocardiogram completed [email or web address] [address] [place], [address] 01/23/2024 09:17:09 01/18/2024 electrocardiogram completed [email or web address] [address], [address], 01/24/2024 15:41:11 01/25/2024 electrocardiogram completed [address], [address], 01/31/2024 15:26:40 01/26/2024 electrocardiogram completed [email or web address] [address], [address], 01/26/2024 14:27:03 01/26/2024 electrocardiogram completed [email or web address] [address], [address], 01/26/2024 14:26:35 02/14/2024 rhythm strip, EKG* completed [facility] [address], [place], [address], 02/16/2024 09:41:57 02/16/2024 electrocardiogram active [email or web address] [address], [address], 02/17/2024 14:26:30 Procedure Notes None recorded. Medical Equipment None Reported. Allergies Allergen ID Allergen Name Allergen Category Reaction Reaction Severity Criticality Documentation Date Start Date Code Code System Note Provider Name and Address Organization Details Recorded Time sulfadiaz ine medicatio n other mild Not available 05/27/20232001 08721 RxNorm GI Reinaldo Banerjee [facility] 4 20:26:32 [address]243 erythromy keith medicatio n other mild Not available 05/27/20232001 4053 RxNorm GI Reinaldo Banerjee [facility] 4 20:26:14 [address]471 Sudafed medicatio n Not available Not available Not available 09/20/2023200530 2 [facility] 20:28:00 [address] Plavix medicatio n wheezing moderate Not available 09/20/20232009 07868 2 RxNorm Reinaldo Banerjee [facility] 4 20:28:28 Medications Name Sig Start Date Stop Date Status Note LastModified by Organization Details LastModified Time Toprol XL 50 mg tablet,ex tended release 2 tab qd 02/15 completed Not Available Not Available Not Available furosemid e 40 mg tablet TAKE ONE AND ONE-HALF TABLETS BY MOUTH EVERY MORNING 01/16 completed Per [facility] d/c summary 01/14/24 Not Available Not Available Not Available metformin 500 mg tablet Take 1 tab by mouth twice daily 08/10 completed Not Available Not Available Not Available betametha sone valerate 0.1 % topical ointment APPLY A SMALL AMOUNT TO AFFECTED AREA(S) TWO TIMES A DAY active Not Available Not Available No t Available atorvasta tin 80 mg tablet Take 1 tab by mouth daily at bedtime 07/21 completed Not Available Not Available Not Available prednison e 10 mg tablet take 30 mg for 3 days, 20 mg 3 days, 10 mg 3 days. 08/10 completed Not Available Not Available Not Available doxycycli ne hyclate 100 mg capsule TAKE ONE CAPSULE BY MOUTH EVERY 12 HOURS FOR 4 DAYS 07/13 completed Not

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
--- OUTSIDE RECORDS SUMMARY | 2024-02-17 14:42 | XMS_ITS | Continuity of Care Document ---
Author Organization [facility], [facility] Address [address] [place] [address] Assessment No assessment recorded. Plan of Treatment Reminders Order Date Submit Date Provider Last Modified By Organization Details Last Modified Time Details Appointments Office Visit 30 2023 01:00P Patrick VERMA, Not available Not available Not available Lab None recorded. Referral cardiolog ist referral 2023 024 [facility], [address], [place], [address], 02/06/2024 15:45:08 Procedures None recorded. Surgeries None recorded. Imaging electroca rdiogram 2023 024 [email or web address] [facility], [address] [place] [address], [address], 01/24/2024 15:41:12 Medication Orders Victoza 3-Abdulaziz 0.6 mg/0.1 mL (18 mg/3 mL) subcutane ous pen injector 2023 024 [facility], [address] [place], [address], 01/25/2024 10:04:37 diltiazem ER 240 mg capsule,2 4 hr,extend ed release 2023 024 [facility], [address] [place], [address], 01/24/2024 15:41:16 Patient TargetsNo targets recorded. Patient InstructionsNo instructions recorded. Reason for Referral Endocrinology Referral for T hyroid nodule Referring Physician: [facility], Encounter Date: 06/23/2023 Scale Model Maker Referral for At rial fibrillation Referring Physician: Heath [facility]a [facility], Encounter Date: 01/18/2024 Results Created Date Observation Date Name Description Value Unit Range Abnormal Flag LastModifiedBy Organization Detail LastModifiedTime 01/12/2001/11/2024 vrad repor t Patien t Name: Austin Aden Unit #: [id number] Loc: ER Orderi ng Provid er: Accoun t #: [id number] Status : REG ER Primar y Care Provid er: Heath Verma Date of Exam: Sex: F : 1950 Age: 73 Exam(s ) PROCED URE INFORM ATION: Exam: XR Chest Exam date and time: 024 11:09 PM Age: 73 years old Clinic al indica tion: Other: SOB, HTN, afib TECHNI QUE: Imagin g protoc ol: Radiol ogic exam of the chest. Views: 1 view. COMPAR OBDULIO: CR XR PORTAB LE CHEST AP 023 [...] joints : Median sterno ariel wires. IMPRES THELMA: Modera te cardio megaly and mild centra l vascul ar conges tion are both slight ly more pronou nced. Dictat ed and Peter boykin d by: Ozzy Avina MD. Logan castro:PSal ISST Tommy gutierrez MD Access ion#=1 [id number] Andrew de la torre By: CC: ------ ------ ------ ------ ------ ------ ------ ------ ------ ------ ------ ------ ---- Dictat ed By: Report s vrad 2308 003 Transc ribed By: Selin Sykes 2308 This is privil eged, confid ential inform ation intend ed only for the provid er named. Any use or distri bution by any person other than this provid er is strict ly prohib ited. If you receiv e this report in error, please notify us immedi kurtisly at [phone] and return the origin al report to us at the addres s above. Thank- you. [email or web address] [address], [place], [address] 01/12/2024 15:50:28 01/12/20 24 01/12/2024 x-ray imagi ng repor t Patiduane t Name: Austin Aden isreal De La Torre Unit #: [id number] Loc: MS Logan castro Provid er: Maria G Rowe M.D. Accoun t #: [id number] Status : ADM IN Primar y Care Provid er: Heath Verma Date of Exam: Sex: F Admiss ion Date: : 1950 Age: 73 Exam(s ) XR PORTAB LE CHEST AP EXAM: XR PORTAB LE CHEST AP CLINIC AL HISTOR Y: sob, htn, afib TECHNI QUE: 2D digita l imagin g was perfor med of the chest. One image was obtain ed. An AP view was obtain ed. COMPAR OBDULIO: CR XR CHEST 2V PA LATERA L from 2018 CR,XR XR PORTAB LE CHEST AP from 2022 CR,XR XR PORTAB LE CHEST AP from 2022 FINDIN GS: MEDIAS TINUM: Normal . HEART: Mild cardio megaly . PULMON MARTHA VASCUL ATURE: There is pulmon martha venous conges tion. LUNGS: No focal consol idatin g infilt rates. PLEURA L SPACE: No pleura l effusi on or pneumo thorax . BONE:W ithin normal limits for the patien t's age. Sterna l wires are in place. OTHER FINDIN GS:Nor mal. IMPRES THELMA: Cardio megaly and pulmon martha venous conges tion. This can be seen with fluid overlo ad. DATA REPOSI TORY: RADIAT ION DOSE DELIVE RED: Ordere d By: Maria G Rowe M.D. CC: ------ ------ ------ ------ ------ ------ ------ ------ ------ ------ ------ ------ - Dictat ed By: Espinoza Sterling M.D. 752 Transc ribed By: Espinoza Sterling 752 This is privil eged, confid ential inform ation intend ed only for the provid er named. Any use or distri bution by any person other than this provid er is strict ly prohib ited. If you receiv e this report in error, please notify us immedi kurtisly at and return the origin al report to us at the addres s above. Thank- you. [address], [place], [address] 01/12/2024 15:50:29 01/12/20 24 01/12/2024 , echo isabel Woodardduane t Name: Jamari richardsonAustin De La Torre Unit #: [id number] Loc: MS Logan castro Provid er: Jamari richardsonArpit Acckyaw t #: [id number] Status : ADM IN Primar y Care Provid er: Heath Verma Date of Exam: Sex: F Admiss ion Date: : 1950 Age: 73 ------ ------ --- APPROV ED REPORT ------ ------ -- EXAM: Compre hensiv e 2D, Dopple r, and color- flow Echoca rdiogr carla Byrd t Locati on: In-Pat ient Room/B ed: 208 Sonogr apher: Jalyn Steven , RDZACK (AE) Indica tions: Exacer bation CHF with atrial fibril lation and RVR Other Inform ation Study Qualit y: Fair. Techni adriana limite d study due to body habitu s, exam done supine . Conclu thelma Normal left ventri cular wall thickn ess [...] icant change compar ed to study from y 2022 Wall motion Left Ventri mickey The [...] 26.4 mmHg. Pulmon ic Valve The pulmon martha valve is normal in struct ure. There [...] (<2mmH g) MV VTI 0.401 m Pulmon martha Valve PV Vmax 0.84 (0.5-1 .5 m/s) [...] Grad 23.3 mmHg RVSP (TR) 26.4 mmHg Andrew de la torre By: Aript Aden CC: ------ ------ ------ ------ ------ [...] at the addres s above. Thank- you. [email or web address] [address], [place], [address] 01/23/2024 09:17:09 01/18/20 24 01/18/2024 elect rocar diogr am No observ ation record ed. [address], [address], 01/24/2024 15:41:11 01/25/20 24 01/25/2024 elect rocar diogr am No observ ation record ed. [address], [address], 01/31/2024 15:26:40 01/26/20 24 elect rocar diogr am No observ ation record ed. [email or web address] [address], [address], 01/26/2024 14:27:03 01/26/20 24 elect rocar diogr am No observ ation record ed. [email or web address] [address], [address], 01/26/2024 14:26:35 02/14/20 24 02/14/2024 rhyth m strip , EKG* No observ ation record ed. [email or web address] [facility] [address], [place], [address], 02/16/2024 09:41:57 02/16/20 24 elect rafy diogr am No observ ation record ed. [address], [address], 02/17/2024 14:26:30 Result Notes None recorded. Problems Name Status Onset Date Resolution Date Notes Provider Name and Address Organization Details Recorded Time [facility] density finding [facility] 4 20:41:59 History of clinical finding in subject Active 2008 Not Available [facility] 3 03:49:56 Essential hypertension Active 2001 [facility] 4 20:37:26 Atheroscleros is of coronary artery without angina pectoris Active 2007 KARYNA to LAD and RCA [facility] 4 20:38:50 Hyperparathyr oidism Active 2008 [facility] 4 20:44:52 Psoriasis Active 2012 [facility]. 4 20:46:29 Atrial fibrillation Active 2013 [facility] 4 20:37:18 Polycythemia vera (clinical) Active 2013 [facility] 4 20:46:24 Obesity Active 2013 [facility] 4 20:45:34 Osteoarthriti s Active 2013 [facility] 4 20:45:47 Type 2 diabetes mellitus without complication Active 2013 [facility] 4 20:38:17 Chronic kidney disease [facility] 2013 [facility]. 4 20:42:56 Otalgia of right ear Completed 201611/04/2016 10/21/2016 - Comments only - Tresa Carneyedward [employer] - - I do not believe there [...] H92.01; Problem Code Type: ICD-10; Not Available [facility] 3 03:49:58 Hyperlipidemi a Active 2016 [facility]. 4 20:44:47 Snoring Active 2018 [facility]. 4 20:46:46 Seasonal allergic rhinitis Active 2018 [facility], [facility]. 4 20:46:40 Fatigue Active 2018 [facility]. 4 20:44:29 Obstructive sleep apnea syndrome Active 2018 [facility], [facility]. 4 20:45:41 Chronic obstructive pulmonary disease Active 2018 [facility], [facility]. 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 4 20:37:31 Cataract Active 2020 [facility] 4 20:42:41 Trigger finger of right hand [facility] 4 20:47:07 Rosacea Active 2020 [facility] 4 20:47:29 Pain in right lower limb Active 2020 [facility] 4 20:46:12 Abnormal gait Active 2020 [facility] 4 20:40:36 Idiopathic osteoarthriti s Active 2020 Reinaldojaison Banerjee [facility] 4 20:45:10 Breast composition Active 202004/06/2022 - Comments only - Heath Verma [employer] - Image was less concerning on recheck. Recommend to resume routine mammograms 06/2022. Not Available [facility] 3 03:50:00 Dyspnea Active 2021 Reinaldo Banerjee [facility] 4 20:44:14 Heart failure [facility] 4 20:44:40 Non-toxic uninodular goiter Active 2022 [facility] 4 20:45:28 Pulmonary hypertension [facility] 20[facility] 4 20:46:34 Spasm of back muscles Active 2022 Reinaldojaison Banerjee [facility] 4 20:46:50 Common cold Completed 202203/24/2023 Problem Code: J00; Problem Code Type: ICD-10; Not Available [facility] 3 03:50:04 Chronic renal impairment Completed 201304/13/2023 Problem Code: 585.9; Problem Code Type: ICD-9; Not Available Count includes the [facility] 3 03:50:07 Pain in left foot Completed 201908/21/2020 Problem Code: M79.672; Problem Code Type: ICD-10; Not Available Count includes the [facility] 3 03:50:08 Abnormal sputum Completed 201806/15/2022 Problem Code: R09.3; Problem Code Type: ICD-10; Not Available Count includes the [facility] 3 03:50:08 Sepsis Completed 201908/08/2019 Problem Code: A41.9; Problem Code Type: ICD-10; Not Available Count includes the [facility] 3 03:50:08 Coronary arteriosclero sis Completed 200704/13/2023 Not Available Count includes the [facility] 3 03:50:08 Hypertensive disorder Completed 200104/13/2023 Not Available Count includes the [facility] 3 03:50:09 Disorder of skin and/or subcutaneous tissue Active 2018 Problem Code: L98.9; Problem Code Type: ICD-10; Not Available Count includes the [facility] 4 05:36:17 Asteatosis cutis Completed 201708/21/2020 Problem Code: L85.3; Problem Code Type: ICD-10; Not Available Count includes the [facility] 3 03:50:09 Screening mammography Completed 201604/06/2022 Problem Code: Z12.31; Problem Code Type: ICD-10; Not Available Count includes the [facility] 3 03:50:10 Acute upper respiratory infection Completed 201502/17/2016 Problem Code: J06.9; Problem Code Type: ICD-10; Not Available Count includes the [facility] 3 03:50:10 History of disorder of digestive system Completed 202203/14/2023 Problem Code: Z87.19; Problem Code Type: ICD-10; Not Available Count includes the [facility] 3 03:50:10 Dyspnea Completed 201908/21/2020 Problem Code: R06.02; Problem Code Type: ICD-10; Reinaldo Banerjee [facility] 4 20:44:14 Pain in right hip joint Completed 201308/21/2020 Problem Code: M25.551; Problem Code Type: ICD-10; Not Available [facility] 3 03:50:11 Pre-surgery evaluation Completed 202011/19/2020 Problem Code: Z01.818; Problem Code Type: ICD-10; Not Available [facility] 3 03:50:11 Bursitis of right knee Completed 201508/21/2020 Problem Code: M70.51; Problem Code Type: ICD-10; Not Available [facility] 3 03:50:11 Vaginal bleeding Completed 201911/19/2020 Not Available [facility] 3 03:50:12 Pain in lower limb Completed 201604/06/2022 Problem Code: M79.606; Problem Code Type: ICD-10; Not Available [facility] 3 03:50:12 Polyneuropath y Completed 201908/21/2020 Problem Code: G62.9; Problem Code Type: ICD-10; Not Available [facility] 3 03:50:13 Dyspnea Completed 201804/13/2023 Problem Code: R06.02; Problem Code Type: ICD-10; Reinaldo Banerjee [facility] 4 20:44:14 Malaise Completed 201904/13/2023 09/14/2019 - Comments only - Heath LEON - Edwige would like referal to physical therapy for deconditionin g. I think this would be an excellent intervention for Edwige, especially after recent illness. Referal placed. Problem Code: R53.81; Problem Code Type: ICD-10; Not Available [facility] 3 03:50:15 Congenital deformity of foot Completed 201910/10/2019 Problem Code: Q66.89; Problem Code Type: ICD-10; Not Available [facility] 3 03:50:16 Bronchitis Completed 201805/01/2019 Problem Code: J40; Problem Code Type: ICD-10; Not Available Count includes the [facility] 3 03:50:16 Diabetes mellitus Completed 201304/13/2023 Not Available Count includes the [facility] 3 03:50:17 Acute right-sided heart failure Completed 202104/13/2023 Problem Code: I50.811; Problem Code Type: ICD-10; Not Available Count includes the [facility] 3 03:50:17 Osteopenia Completed 200804/13/2023 Not Available Count includes the [facility] 3 03:50:18 Dysuria Completed 201908/21/2020 Problem Code: R30.0; Problem Code Type: ICD-10; Not Available Count includes the [facility] 3 03:50:19 Cough Completed 201808/21/2020 Problem Code: R05; Problem Code Type: ICD-10; Not Available Count includes the [facility] 3 03:50:19 Multiple nodules of lung Active 2022 EDWARD SPAIN [address], [place], [address] , [facility]. 3 11:40:00 Malignant tumor of lung Active [address], [place], [address] , [facility]. 3 11:40:57 Tricuspid valve regurgitation Active [address], [place], [address] , [facility]. 3 09:57:12 Aneurysm of ascending aorta Active 2022 3.56 CM dilation on echo completed 06/19/[address], [place], [address] , [facility]. 3 09:57:54 Thyroid nodule Active [address], [place], [address] , [facility], [facility] 3 10:25:41 Edema of right lower limb Active [address], [place], [address] , [facility] 3 14:23:37 Non-cardiac chest pain Active [address], [place], [address] , [facility], [facility] 3 11:11:43 Pain of right breast Active [address], [place], [address] , [facility], [facility] 3 11:13:05 Problem Notes None recorded. Procedures Surgical History Date Name Laterality Status Provider Name and Address Organization Details Recorded Time 4 Date of Last Mammogram completed Uniqeu Fields RN [facility] 07/26/2023 07:03:02 2 Most Recent Mammogram completed ADALID BLACKBURN CMA [facility] 06/28/2023 11:48:21 1 Date of Last Pap Smear completed ADALID BLACKBURN CMA [facility] 06/28/2023 11:48:11 Imaging Results Imaging Date Name Status LastModified by Organization Details LastModified Time 01/18/2024 electrocardiogram completed [email or web address], [address], 01/24/2024 15:41:11 Procedure Notes None recorded. Medical Equipment None Reported. Allergies Allergen ID Allergen Name Allergen Category Reaction Reaction Severity Criticality Documentation Date Start Date Code Code System Note Provider Name and Address Organization Details Recorded Time sulfadiaz ine medicatio n other mild Not available 05/27/20232001 92954 RxNorm GI Reinaldo Banerjee [facility] 4 20:26:32 75344 erythromy keith medicatio n other mild Not available 05/27/20232001 4053 RxNorm GI Reinaldo Banerjee [facility] 4 20:26:14 82780 Sudafed medicatio n Not available Not available Not available 09/20/2023200530 2 RxNorm Nose bleed Reinaldo Banerjee [facility] 4 20:28:00 54105 Plavix medicatio n wheezing moderate Not available 09/20/20232009 11158 2 RxNorm Reinaldo Banerjee [facility] 4 20:28:28 Medications Name Sig Start Date Stop Date Status Note LastModified by Organization Details LastModified Time Toprol XL 50 mg tablet,ex tended release 2 tab qd 02/15 completed Not Available Not Available Not Available furosemid e 40 mg tablet TAKE ONE AND ONE-HALF TABLETS BY MOUTH EVERY MORNING 01/16 completed Per [facility] d/c summary 01/14/24 Not Available Not [...] Not Avai lable Nasonex 50 mcg/actua tion [place] 1 spray each nostril bid prn 05/18 [...] Available Not Available No t Available FreeStyle Tom Bean Lite kit Dx: 2018 active Not Available [...] Not Available Vitals Date Recorded Body height Oxygen saturation Oxygen saturation in Arterial blood by Pulse oximetry Body temperature Body mass index (BMI) Body weight Systolic blood pressure Diastolic blood pressure Provider Name and Address Organization Details Last Updated DateTime 4 160.782 cm 95 % 95 % 95.6 [degF] 32.7 kg/m2 37499.6 2 g 120 mm[Hg] 76 mm[Hg] Unique Fields RN [place] [facility]. 13:50:37 Date Recorded Heart rate Provider Name an d Address Organization Details Last Updated DateTime 01/18/2024 132 /min EDWARD SPAIN [address], [place], [address], [facility] 01/18/2024 14:12:26 Social History Question Answer Notes LastModified by Organizat ion Details LastModified Time Tobacco Smoking Status Former Smoker PADMA ORTEZ RN [facility], [facility] 07/13/2023 13:54:57 What Was The Date Of Your Most Recent Tobacco Screening? 07/13/2023 Information not available 07/13/2023 Has Tobacco Cessation Counseling Been Provided? No [email or web address] Information not available 07/13/2023 Do You Or Have You Ever Used Any Other Forms Of Tobacco Or Nicotine? No [email or web address] Information not available 07/13/2023 Sex: Female Functional [...] Recorded Time Tdap 04/29/2014 completed Not Available [facility] 05:46:31 Pneumococcal conjugate PCV 13 05/18/2016 completed Not Available [facility] 05/27/2023 05:46:31 Influenza, split virus, trivalent, preservative 05/18/2016 completed Not Available [facility] 05/27/2023 05:46:31 Influenza, split virus, quadrivalent, preservative 05/25/2017 completed Not Available [facility] 05/27/2023 05:46:31 Influenza, MDCK, quadrivalent, PF 08/10/2019 completed Not Available [facility] 05/27/2023 05:46:32 Influenza, high-dose, quadrivalent, PF 04/27/2021 completed Not Available [facility] 05/27/2023 05:46:32 Influenza, high-dose, quadrivalent, PF 05/15/2020 completed Not Available [facility] 05/27/2023 05:46:32 Influenza, high-dose, quadrivalent, PF 06/15/2022 completed Not Available [facility] 05/27/2023 05:46:32 COVID-19, mRNA, LNP-S, PF, 100 mcg/0.5mL dose or 50 mcg/0.25mL dose 10/07/2020 completed Not Available [facility] 05/27/2023 05:46:32 COVID-19, mRNA, LNP-S, PF, 100 mcg/0.5mL dose or 50 mcg/0.25mL dose 11/04/2020 completed Not Available [facility] 05/27/2023 05:46:32 COVID-19, mRNA, LNP-S, PF, 100 mcg/0.5mL dose or 50 mcg/0.25mL dose 06/23/2021 completed Not Available Count includes the [facility] 05/27/2023 05:46:32 pneumococcal polysaccharide PPV23 08/15/2019 completed Not Available [facility] 2022 05:46:32 pneumococcal polysaccharide PPV23 04/29/2014 completed Not Available [facility] 2022 05:46:32 Influenza, high-dose, quadrivalent, PF 06/29/2023 completed CURLY HOWARD, [place] - [facility]. 06/29/2023 15:40:46 Past Encounters Encounter ID Performer Location Encounter Start Date Encounter Closed Date Diagnosis/Indication Diagnosis SNOMED-CT Code [id number] EDWARD SPAIN [address] [address] 01/18/2024 13:40:57 01/18/2024 15:07:40 Atrial fibrillation 97823689 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 140515003 Chronic ob structive pulmonary disease 62607679 Health Concerns Section Related Observation LastModified by Organization Detai ls LastModified Time None Recorded Concern Status LastModified by Organization Details LastModified Time None Recorded Payers Encounter Date Sequence Insurance Name Policy Number Policy Mina Covered Member ID Mina Member ID Guarantor Name 01/18/2024 2 [employer] (MEDICARE SUPPLEMENT) Edwige Davis [id number] Edwige Davis 01/18/2024 1 MEDICARE [place] [email or web address] Edwige Davis [id number] Edwige Davis Notes Date Note Type Note Provider Name and Address Organization Details Recorded Time 01/18/2024 text/html HPI Notes: Edwige is here today to follow-up after discharge from the hospital for admission for CHF and rapid a-fib. She reports that she continues to feel easily fatigued and short of breath. 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 01/24/2024 15:49:45 OBGyn Episode No OBEpisode recorded.
--- OUTSIDE RECORDS SUMMARY | 2024-02-17 14:42 | XMS_ITS | Continuity of Care Document ---
Author Organization [place] - [facility], [facility] Address [address] [place] [address] Assessment No assessment recorded. Plan of Treatment Reminders Order Date Submit Date Provider Last Modified By Organization Details Last Modified Time Details Appointments Office Visit 30 2023 01:00P M HEATH VERMA, Not available Not available Not available Lab hemoglobi n A1C, fingersti ck 2023 024 [email or web address] [facility], [address] [place] [address], [address], 12/01/2023 15:55:30 Referral None recorded. Procedures None recorded. Surgeries None recorded. Imaging None recorded. Medication Orders duloxetin e 30 mg capsule,d elayed release 2023 024 [facility], [address] [place], [address], 12/01/2023 11:29:01 Patient TargetsNo targets recorded. 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 [email or web address] Not Available 12/06/2023 12:58:46 01/12/20 24 01/11/2024 vrad repor t Patien t Name: Austin Aden Unit #: [id number] Loc: ER Orderi ng Provid er: Accoun t #: [id number] Status : REG ER Primar y [...] ly more pronou nced. Dictat ed and Authen ticate d by: Ozzy Avina MD. Orderradha ng:P.D ISST Disabluz maria gutierrez MD Access ion#=[id number] Ordere d By: CC: ------ ------ ------ ------ ------ ------ ------ ------ ------ ------ ------ ------ ---- Dictat ed By: Report s vrad [id number] [id number] Transc ribed By: Selin Sykes 2308 This [...] at the addres s above. Thank- you. [email or web address] [facility] [address] [place], [address] 01/12/2024 15:50:28 01/12/20 24 01/12/2024 x-ray imagi ng repor t Rochelle t Name: Austin Aden Unit #: [id number] Loc: Orderradha ng Provid er: Maria G Rowe M.D. t #: [id number] Status : ADM IN Primar y Care [facility] er: Bayron Heath Date of Exam: Sex: F Admiss ion [...] PULMON MARTHA VASCUL ATURE: There is pulmon amrtha venous conges tion. LUNGS: No focal consol [...] error, please notify us immedi kurtisly at [phone] and return the origin al report to us at the addres s above. Thank- you. [facility] [address], [place], [address] 01/12/2024 15:50:29 01/12/20 24 01/12/2024 , [facility] isabel patel Rochelle car Name: Jamari richardsonAustin De La Torre Unit #: [id number] Loc: Orderi ng Provid er: Jamari Arpit richardson Accoun t #: [id number] Status : ADM IN Primar y Care Provid er: Heath Verma Date of Exam: Sex: F Admiss ion Date: : 1950 Age: 73 ------ ------ --- APPROV ED REPORT ------ ------ -- EXAM: Compre hensiv e 2D, Dopple r, and color- flow Echoca rdiogr am Patien t Locati on: In-Pat ient Room/B ed: 208 Sonogr apher: Jalyn Steven , RDCS (AE) Indica tions: Exacer bation CHF with [...] 26.4 mmHg Andrew de la torre By: Arpit Aden CC: ------ ------ ------ ------ ------ ------ ------ ------ ------ ------ ------ ------ - Dictat ed By: Shalonda Richardson M.D. 6 1215 Transc ribed By: Shalonda Richardson MD [...] at the addres s above. Thank- you. [email or web address] [facility] [address] [place], [address] 01/23/2024 09:17:09 01/18/20 24 01/18/2024 elect rocar corriegr am No observ ation record ed. [email or web address] [address], [address], 01/24/2024 15:41:11 01/25/20 24 01/25/2024 elect rocar diogr am No observ ation record ed. [address], [address], 01/31/2024 15:26:40 01/26/20 elect rocar diogr am No observ ation record ed. [email or web address] [address], [address], 01/26/2024 14:27:03 01/26/20 elect rocar diogr am No observ ation record ed. [email or web address] [address], [address], 01/26/2024 14:26:35 02/14/20 24 02/14/2024 rhyth m strip , EKG* No observ ation record ed. [email or web address] [facility] [address], [place], [address], 02/16/2024 09:41:57 02/16/20 24 elect rafy thompson am No observ ation record ed. [email or web address] [facility] [address], [place], [address], 02/17/2024 14:26:30 Result Notes None recorded. Problems Name Status Onset Date Resolution Date Notes Provider Name and Address Organization Details Recorded Time Bone density finding Active 2008 [facility]. 4 20:41:59 History of clinical finding in subject Active 2008 Not Available [facility] 3 03:49:56 Essential hypertension Active 2001 [facility]. 4 20:37:26 Atheroscleros is of coronary artery without angina pectoris Active 2007 KARYNA to LAD and RCA [facility]. 4 20:38:50 Hyperparathyr oidism Active 2008 [facility]. 4 20:44:52 Psoriasis Active 2012 [facility]. 4 20:46:29 Atrial fibrillation [facility] 4 20:37:18 Polycythemia vera (clinical) Active 2013 [facility]. 4 20:46:24 Obesity Active 2013 [facility]. 4 20:45:34 Osteoarthriti s Active 2013 [facility]. 4 20:45:47 Type 2 diabetes mellitus without complication [facility] 4 20:38:17 Chronic kidney disease Active 2013 [facility]. 4 20:42:56 Otalgia of right ear Completed 201611/04/2016 10/21/2016 - Comments only - Tresa Carneyedward [employer]ER - - I do not believe there [...] H92.01; Problem Code Type: ICD-10; Not Available [facility] 3 03:49:58 Hyperlipidemi a Active 2016 [facility]. 4 20:44:47 Snoring Active 2018 [facility] 4 20:46:46 Seasonal allergic rhinitis Active 2018 [facility]. 4 20:46:40 Fatigue Active 2018 [facility] 4 20:44:29 Obstructive sleep apnea syndrome Active 2018 [facility]. 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 4 20:37:31 Cataract [facility] 4 20:42:41 Trigger finger of right hand Active 2020 [facility] 4 20:47:07 Rosacea Active 2020 [facility] 4 20:47:29 Pain in right lower limb Active 2020 Reinaldojaison Banerjee [facility] 4 20:46:12 Abnormal gait Active 2020 Reinaldojaison Banerjee [facility] 4 20:40:36 Idiopathic osteoarthriti s Active 2020 Reinaldojaison Banerjee [facility] 4 20:45:10 Breast composition Active 202004/06/2022 - Comments only - Heath Verma [employer]ER - Image was less concerning on recheck. Recommend to resume routine mammograms 06/2022. Not Available [facility] 3 03:50:00 Dyspnea Active 2021 [facility] 4 20:44:14 Heart failure Active 2021 Reinaldo Banerjee [facility] 4 20:44:40 Non-toxic uninodular goiter Active 2022 [facility] 4 20:45:28 Pulmonary hypertension Active 2022 Reinaldojaison Banerjee [facility] 4 20:46:34 Spasm of back muscles Active 2022 Reinaldojaison Banerjee [facility] 4 20:46:50 Common cold Completed 202203/24/2023 Problem Code: J00; Problem Code Type: ICD-10; Not Available [facility] 3 03:50:04 Chronic renal impairment Completed 201304/13/2023 Problem Code: 585.9; Problem Code Type: ICD-9; Not Available [facility] 3 03:50:07 Pain in left foot Completed 201908/21/2020 Problem Code: M79.672; Problem Code Type: ICD-10; Not Available [facility] 3 03:50:08 Abnormal sputum Completed 201806/15/2022 Problem Code: R09.3; Problem Code Type: ICD-10; Not Available [facility] 3 03:50:08 Sepsis Completed 201908/08/2019 Problem Code: A41.9; Problem Code Type: ICD-10; Not Available [facility] 3 03:50:08 Coronary arteriosclero sis Completed 200704/13/2023 Not Available [facility] 3 03:50:08 Hypertensive disorder Completed 200104/13/2023 Not Available [facility] 3 03:50:09 Disorder of skin and/or subcutaneous tissue Active 2018 Problem Code: L98.9; Problem Code Type: ICD-10; Not Available [facility] 4 05:36:17 Asteatosis cutis Completed 201708/21/2020 Problem Code: L85.3; Problem Code Type: ICD-10; Not Available [facility] 3 03:50:09 Screening mammography Completed 201604/06/2022 Problem Code: Z12.31; Problem Code Type: ICD-10; Not Available [facility] 3 03:50:10 Acute upper respiratory infection Completed 201502/17/2016 Problem Code: J06.9; Problem Code Type: ICD-10; Not Available [facility] 3 03:50:10 History of disorder of digestive system Completed 202203/14/2023 Problem Code: Z87.19; Problem Code Type: ICD-10; Not Available [facility] 3 03:50:10 Dyspnea Completed 201908/21/2020 Problem Code: R06.02; Problem Code Type: ICD-10; Reinaldo Banerjee [facility] 4 20:44:14 Pain in right hip joint Completed 201308/21/2020 Problem Code: M25.551; Problem Code Type: ICD-10; Not Available [facility] 3 03:50:11 Pre-surgery evaluation Completed 202011/19/2020 Problem Code: Z01.818; Problem Code Type: ICD-10; Not Available [facility] 3 03:50:11 Bursitis of right knee Completed 201508/21/2020 Problem Code: M70.51; Problem Code Type: ICD-10; Not Available [facility] 3 03:50:11 Vaginal bleeding Completed 201911/19/2020 Not Available [facility] 3 03:50:12 Pain in lower limb Completed 201604/06/2022 Problem Code: M79.606; Problem Code Type: ICD-10; Not Available [facility] 3 03:50:12 Polyneuropath y Completed 201908/21/2020 Problem Code: G62.9; Problem Code Type: ICD-10; Not Available [facility] 3 03:50:13 Dyspnea Completed 201804/13/2023 Problem Code: R06.02; Problem Code Type: ICD-10; Reinaldo Banerjee [facility] 4 20:44:14 Malaise Completed 201904/13/2023 09/14/2019 - Comments only - Heath LEON - Edwige would like referal to physical therapy for deconditionin g. I think this would be an excellent intervention for Edwige, especially after recent illness. Referal placed. Problem Code: R53.81; Problem Code Type: ICD-10; Not Available [facility] 3 03:50:15 Congenital deformity of foot Completed 201910/10/2019 Problem Code: Q66.89; Problem Code Type: ICD-10; Not Available [facility] 3 03:50:16 Bronchitis Completed 201805/01/2019 Problem Code: J40; Problem Code Type: ICD-10; Not Available [facility] 3 03:50:16 Diabetes mellitus Completed 201304/13/2023 Not Available [facility] 3 03:50:17 Acute right-sided heart failure Completed 202104/13/2023 Problem Code: I50.811; Problem Code Type: ICD-10; Not Available [facility] 3 03:50:17 Osteopenia Completed 200804/13/2023 Not Available [facility] 3 03:50:18 Dysuria Completed 201908/21/2020 Problem Code: R30.0; Problem Code Type: ICD-10; Not Available [facility] 3 03:50:19 Cough Completed 201808/21/2020 Problem Code: R05; Problem Code Type: ICD-10; Not Available [facility] 3 03:50:19 Multiple nodules of lung Active [address], [place], [address] , [facility] 3 11:40:00 Malignant tumor of lung Active [address], [facility] [address] , [facility]. 3 11:40:57 Tricuspid valve regurgitation Active [address], [place], [address] , [facility]. 3 09:57:12 Aneurysm of ascending aorta Active 2022 3.56 CM dilation on echo completed 06/19/[address], [place], [address] , [facility] 3 09:57:54 Thyroid nodule Active [address], [facility] [address] , [facility] 3 10:25:41 Edema of right lower limb Active [address], [facility] [address] , [facility] 3 14:23:37 Non-cardiac chest pain Active [address], [facility] [address] [place] [address] 3 11:11:43 Pain of right breast Active [address], [facility] [address] [place] [address] 3 11:13:05 Problem Notes None recorded. Procedures Surgical History Date Name Laterality Status Provider Name and Address Organization Details Recorded Time 4 Date of Last Mammogram completed Unique Fields RN [facility] 07/26/2023 07:03:02 2 Most Recent Mammogram completed ADALID BLACKBURN CMA [facility] 06/28/2023 11:48:21 1 Date of Last Pap Smear completed ADALIDSIXTO BLACKBURN CMA [facility] 06/28/2023 11:48:11 Imaging Results None recorded. Procedure Notes None recorded. Medical Equipment None Reported. Allergies Allergen ID Allergen Name Allergen Category Reaction Reaction Severity Criticality Documentation Date Start Date Code Code System Note Provider Name and Address Organization Details Recorded Time sulfadiaz ine medicatio n other mild Not available 05/27/20232001 36921 RxNorm GI Reinaldo Banerjee [facility] 4 20:26:32 67486 erythromy keith medicatio n other mild Not available 05/27/20232001 4053 RxNorm GI Reinaldo Banerjee [facility], [facility] 4 20:26:14 01681 Sudafed medicatio n Not available Not available Not available 09/20/20232005 44019 2 RxNorm Nose bleed Reinaldo Banerjee [facility], [facility] 4 20:28:00 69697 Plavix medicatio n wheezing moderate Not available 09/20/20232009 48368 2 RxNorm Reinaldo Banerjee [facility], [facility] 4 20:28:28 Medications Name Sig Start Date Stop Date Status Note LastModified by Organization Details LastModified Time Toprol XL 50 mg tablet,ex tended release 2 tab qd 02/15 completed Not Available Not Available Not Available furosemid e 40 mg tablet TAKE ONE AND ONE-HALF TABLETS BY MOUTH EVERY MORNING 01/16 completed Per [facility] d/c summary 01/14/24 Not Available Not Available [...] Not Avai lable Nasonex 50 mcg/actua tion [place] 1 spray each nostril bid prn 05/18 [...] Available Not Available No t Available FreeStyle [place] Lite kit Dx: 2018 active Not Available [...] Available Vitals Date Recorded Body height Body temperature Oxygen saturation Oxygen saturation in Arterial blood by Pulse oximetry Heart rate Body mass index (BMI) Body weight Systolic blood pressure Diastolic blood pressure Provider Name and Address Organization Details Last Updated DateTime 4 160.782 cm 96.9 [degF] 94 % 94 % 87 /min 35.2 kg/m2 28414.6 3 g 124 mm[Hg] 84 mm[Hg] Unique Fields RN [place] [facility]. 4 10:56:47 Social History Question Answer Notes LastModified by Organizat ion Details LastModified Time Tobacco Smoking Status Former Smoker PADMA ORTEZ RN [facility], [facility] 07/13/2023 13:54:57 What Was The Date Of Your Most Recent Tobacco Screening? 07/13/2023 [email or web address] Information not available 07/13/2023 Has Tobacco Cessation Counseling Been Provided? No [email or web address] Information not available 07/13/2023 Do You Or Have You Ever Used Any Other Forms Of Tobacco Or Nicotine? No [email or web address] Information not available 07/13/2023 Sex: Female Functional [...] Recorded Time Tdap 04/29/2014 completed Not Available [facility] 05:46:31 Pneumococcal conjugate PCV 13 05/18/2016 completed Not Available [facility] 05/27/2023 05:46:31 Influenza, split virus, trivalent, preservative 05/18/2016 completed Not Available [facility] 05/27/2023 05:46:31 Influenza, split virus, quadrivalent, preservative 05/25/2017 completed Not Available [facility] 05/27/2023 05:46:31 Influenza, MDCK, quadrivalent, PF 08/10/2019 completed Not Available [facility] 05/27/2023 05:46:32 Influenza, high-dose, quadrivalent, PF 04/27/2021 completed Not Available [facility] 05/27/2023 05:46:32 Influenza, high-dose, quadrivalent, PF 05/15/2020 completed Not Available [facility] 05/27/2023 05:46:32 Influenza, high-dose, quadrivalent, PF 06/15/2022 completed Not Available [facility] 05/27/2023 05:46:32 COVID-19, mRNA, LNP-S, PF, 100 mcg/0.5mL dose or 50 mcg/0.25mL dose 10/07/2020 completed Not Available [facility] 05/27/2023 05:46:32 COVID-19, mRNA, LNP-S, PF, 100 mcg/0.5mL dose or 50 mcg/0.25mL dose 11/04/2020 completed Not Available [facility] 05/27/2023 05:46:32 COVID-19, mRNA, LNP-S, PF, 100 mcg/0.5mL dose or 50 mcg/0.25mL dose 06/23/2021 completed Not Available [facility] 05/27/2023 05:46:32 pneumococcal polysaccharide PPV23 08/15/2019 completed Not Available [facility] 2022 05:46:32 pneumococcal polysaccharide PPV23 04/29/2014 completed Not Available [facility] 2022 05:46:32 Influenza, high-dose, quadrivalent, PF 06/29/[address] [facility], [place] [facility]. 06/29/2023 15:40:46 Past Encounters Encounter ID Performer Location Encounter Start Date Encounter Closed Date Diagnosis/Indication Diagnosis SNOMED-CT Code [id number] [address] [address] 12/01/2023 10:45:16 12/01/2023 11:55:16 Malignant tumor of lung 393097325 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 903506140 Neuropathy due to type 2 diabetes mellitus 254189003083138 Thyroid nodule 997549961 Health Concerns Section Related Observation LastModified by Organization Detai ls LastModified Time None Recorded Concern Status LastModified by Organization Details LastModified Time None Recorded Payers Encounter Date Sequence Insurance Name Policy Number Policy Mina Covered Member ID Mina Member ID Guarantor Name 12/01/2023 2 [employer] INS[employer]ANCE [employer] (MEDICARE SUPPLEMENT) Edwige Davis [id number] Edwige Davis 12/01/2023 1 MEDICARE [place]: [facility] Edwige Davis [id number] Edwige Davis Notes Date Note Type Note Provider Name and Address Organization Details Recorded Time 12/01/2023 text/html HPI Notes: Joe schmitz is [...] in her feet significantly inhibiting physical activity. 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, [facility]. 12/02/2023 04:43:17 OBGyn Episode No OBEpisode recorded.
--- OUTSIDE RECORDS SUMMARY | 2024-02-17 14:42 | XMS_ITS | Continuity of Care Document ---
Author Organization [facility] Address [address] [place] [address] Assessment No assessment recorded. Plan of Treatment Reminders Order Date Submit Date Provider Last Modified By Organization Details Last Modified Time Details Appointments Office Visit 30 2023 01:00P Patrick VERMA, Not available Not available Not available Lab PTH (parathyr oid hormone), intact, serum or plasma 2023 024 [facility] (Lab Direct), [address] [place] [address] [place], [address], 01/26/2024 09:19:39 CMP, serum or plasma 2023 024 [facility] (Registration ), [address] [place] [address] [place], [address], 01/25/2024 16:41:29 HbA1c (hemoglob in A1c), blood 2023 024 [facility] (Registration ), [address] [place] [address] [place], [address], 01/30/2024 13:01:47 Referral None recorded. Procedures None recorded. Surgeries None recorded. Imaging electroca rdiogram 2023 024 [email or web address] [facility], [address] [place] [address], [address], 01/26/2024 11:58:28 Medication Orders Victoza 3-Abdulaziz 0.6 mg/0.1 mL (18 mg/3 mL) subcutane ous pen injector 2023 024 [email or web address] [facility], [address], [address], [place], [address], 01/25/2024 12:55:12 Patient TargetsNo targets recorded. Patient InstructionsNo instructions recorded. Reason for Referral Endocrinology Referral for T hyroid nodule Referring Physician: Heath Verma [facility], Encounter Date: 06/23/2023 Table And Desk Finisher Referral for At rial fibrillation Referring Physician: Heath Verma [facility], Encounter Date: 01/18/2024 Results Created Date Observation Date Name Description Value Unit Range Abnormal Flag LastModifiedBy Organization Detail LastModifiedTime 01/12/20 24 01/11/2024 vrad repor t Patien t Name: Austin Aden Unit #: [id number] Loc: ER Orderi ng Provid er: Accoun t #: [id number] Status : REG ER Primar y Care Provid er: Heath Verma Date of Exam: Sex: F : 1950 Age: 73 Exam(s ) PROCED URE INFORM ATION: Exam: XR Chest Exam date and time: 11:09 PM Age: 73 years old Clinic [...] Authen ticate d by: Ozzy Avina MD. Orderi ng:P.D ISST Disaba darrian Stephe n MD Access ion#=[id number] Orderainsley d By: CC: ------ ------ ------ ------ ------ ------ ------ ------ ------ ------ ------ ------ ---- Dictat ed By: Report s vrad [id number] 003 Transc ribed By: Seiln Merge 2308 This is privil eged, confid [...] at the addres s above. Thank- you. [email or web address] [facility] [address], [place], [address] 01/12/2024 15:50:28 01/12/20 24 01/12/2024 x-ray imagi matthew janusz car Name: Austin Aden Unit #: [id number] Loc: MS Logan castro Provid er: Maria G Rowe M.D. Accoun t #: [id number] Status : ADM IN Primar y [...] PULMON MARTHA VASCUL ATURE: There is pulmon marhta venous conges tion. LUNGS: No focal consol [...] error, please notify us immedi ately at [phone] and return the origin al report to us at the addres s above. Thank- you. [email or web address] [facility] [address] [place], [address] 01/12/2024 15:50:29 01/12/20 24 01/12/2024 US, william patel Rochelle car Name: Jamari richardsonAustin Unit #: [id number] Loc: MS Ford ng Provid er: Jamari Arpti richardson Accoun t #: [id number] Status : ADM IN Primar [...] error, please notify us immedi kurtisly at [phone] and return the origin al report to us at the addres s above. Thank- you. [facility] [address], [place], [address] 01/23/2024 09:17:09 01/18/20 24 01/18/2024 elect rocar diogr am No observ ation record ed. [email or web address] [address], [address], 01/24/2024 15:41:11 01/25/20 24 01/25/2024 elect rocar diogr am No observ ation record ed. [address], [address], 01/31/2024 15:26:40 01/26/20 24 elect rocar diogr am No observ ation record ed. [email or web address] [address], [address], 01/26/2024 14:27:03 01/26/20 elect rocar diogr am No observ ation record ed. [email or web address] [address], [address], 01/26/2024 14:26:35 02/14/20 24 02/14/2024 rhyth m strip , EKG* No observ ation record ed. [email or web address] [facility] [address], [place], [address], 02/16/2024 09:41:57 02/16/20 24 elect rafy diogr am No observ ation record ed. [email or web address] [address], [address], 02/17/2024 14:26:30 Result Notes None recorded. Problems Name Status Onset Date Resolution Date Notes Provider Name and Address Organization Details Recorded Time Bone density finding Active 2008 [facility], [facility]. 4 20:41:59 History of clinical finding in subject Active 2008 [facility] Available [facility] 3 03:49:56 Essential hypertension Active 2001 [facility], [facility]. 4 20:37:26 Atheroscleros is of coronary artery without angina pectoris Active 2007 KARYNA to LAD and RCA [facility]. 4 20:38:50 Hyperparathyr oidism Active 2008 [facility], [facility]. 4 20:44:[address] [facility], [facility]. 4 20:46:29 [address] fibrillation Active 2013 [facility], [facility]. 4 20:37:18 Polycythemia vera (clinical) Active 2013 [facility]. 4 20:46:24 Obesity Active 2013 [facility]. 4 20:45:34 Osteoarthriti s Active 2013 Reinaldo Banerjee [facility]. 4 20:45:47 Type 2 diabetes mellitus without complication Active 2013 Reinaldojaison Banerjee [facility] 4 20:38:17 Chronic kidney disease [facility] 2013 [facility] 4 20:42:56 Otalgia of right ear Completed 201611/04/2016 10/21/2016 - Comments only - Tresa Carneyedward REJOINER - - I do not believe there [...] H92.01; Problem Code Type: ICD-10; Not Available [facility] 3 03:49:58 Hyperlipidemi a Active 2016 Reinaldojaison Banerjee [facility]. 4 20:44:47 Snoring Active 2018 Reinaldojaison Banerjee [facility]. 4 20:46:46 Seasonal allergic rhinitis Active 2018 [facility] 4 20:46:40 Fatigue [facility] 2018 [facility] 4 20:44:29 Obstructive sleep apnea syndrome Active 2018 [facility] 4 20:45:41 Chronic obstructive pulmonary disease Active 2018 [facility] 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 Reinaldojaison Banerjee null, [facility] 4 20:37:31 Cataract Active 2020 Reinaldo Banerjee null, [facility] 4 20:42:41 Trigger finger of right hand Active 2020 Reinaldo Banerjee null, [facility] 4 20:47:07 Rosacea Active 2020 facial Reinaldojaison Banerjee null, [facility] 4 20:47:29 Pain in right lower limb Active 2020 Reinaldojaison Banerjee [facility] 4 20:46:12 Abnormal gait Active 2020 Reinaldojaison Banerjee [facility] 4 20:40:36 Idiopathic osteoarthriti s Active 2020 Reinaldojaison Banerjee [facility] 4 20:45:10 Breast composition Active 202004/06/2022 - Comments only - Heath Verma REJOINER - Image was less concerning on recheck. Recommend to resume routine mammograms 06/2022. Not Available [facility] 3 03:50:00 Dyspnea Active 2021 Reinaldo Banerjee null, [facility]. 4 20:44:14 Heart failure Active 2021 Reinaldo Banerjee null, [facility] 4 20:44:40 Non-toxic uninodular goiter Active 2022 Reinaldojaison Banerjee [facility], [facility] 4 20:45:28 Pulmonary hypertension Active 2022 Reinaldojaison Banerjee null, [facility] 4 20:46:34 Spasm of back muscles Active 2022 Reinaldojaison Banerjee [facility] 4 20:46:50 Common cold Completed 202203/24/2023 Problem Code: J00; Problem Code Type: ICD-10; Not Available [facility] 3 03:50:04 Chronic renal impairment Completed 201304/13/2023 Problem Code: 585.9; Problem Code Type: ICD-9; Not Available [facility] 3 03:50:07 Pain in left foot Completed 201908/21/2020 Problem Code: M79.672; Problem Code Type: ICD-10; Not Available [facility] 3 03:50:08 Abnormal sputum Completed 201806/15/2022 Problem Code: R09.3; Problem Code Type: ICD-10; Not Available [facility] 3 03:50:08 Sepsis Completed 201908/08/2019 Problem Code: A41.9; Problem Code Type: ICD-10; Not Available [facility] 3 03:50:08 Coronary arteriosclero sis Completed 200704/13/2023 Not Available [facility] 3 03:50:08 Hypertensive disorder Completed 200104/13/2023 Not Available [facility] 3 03:50:09 Disorder of skin and/or subcutaneous tissue Active 2018 Problem Code: L98.9; Problem Code Type: ICD-10; Not Available [facility] 4 05:36:17 Asteatosis cutis Completed 201708/21/2020 Problem Code: L85.3; Problem Code Type: ICD-10; Not Available [facility] 3 03:50:09 Screening mammography Completed 201604/06/2022 Problem Code: Z12.31; Problem Code Type: ICD-10; Not Available [facility] 3 03:50:10 Acute upper respiratory infection Completed 201502/17/2016 Problem Code: J06.9; Problem Code Type: ICD-10; Not Available [facility] 3 03:50:10 History of disorder of digestive system Completed 202203/14/2023 Problem Code: Z87.19; Problem Code Type: ICD-10; Not Available [facility] 3 03:50:10 Dyspnea Completed 201908/21/2020 Problem Code: R06.02; Problem Code Type: ICD-10; Reinaldo Gomezhead [facility] 4 20:44:14 Pain in right hip joint Completed 201308/21/2020 Problem Code: M25.551; Problem Code Type: ICD-10; Not Available [facility] 3 03:50:11 Pre-surgery evaluation Completed 202011/19/2020 Problem Code: Z01.818; Problem Code Type: ICD-10; Not Available [facility] 3 03:50:11 Bursitis of right knee Completed 201508/21/2020 Problem Code: M70.51; Problem Code Type: ICD-10; Not Available [facility] 3 03:50:11 Vaginal bleeding Completed 201911/19/2020 Not Available [facility] 3 03:50:12 Pain in lower limb Completed 201604/06/2022 Problem Code: M79.606; Problem Code Type: ICD-10; Not Available [facility] 3 03:50:12 Polyneuropath y Completed 201908/21/2020 Problem Code: G62.9; Problem Code Type: ICD-10; Not Available [facility] 3 03:50:13 Dyspnea Completed 201804/13/2023 Problem Code: R06.02; Problem Code Type: ICD-10; Reinaldo Gomezhead [facility] 4 20:44:14 Malaise Completed 201904/13/2023 09/14/2019 - Comments only - Heath POWELLP - Edwige would like referal to physical therapy for deconditionin g. I think this would be an excellent intervention for Edwige, especially after recent illness. Referal placed. Problem Code: R53.81; Problem Code Type: ICD-10; Not Available [facility] 3 03:50:15 Congenital deformity of foot Completed 201910/10/2019 Problem Code: Q66.89; Problem Code Type: ICD-10; Not Available [facility] 3 03:50:16 Bronchitis Completed 201805/01/2019 Problem Code: J40; Problem Code Type: ICD-10; Not Available [facility] 3 03:50:16 Diabetes mellitus Completed 201304/13/2023 Not Available [facility] 3 03:50:17 Acute right-sided heart failure Completed 202104/13/2023 Problem Code: I50.811; Problem Code Type: ICD-10; Not Available [facility] 3 03:50:17 Osteopenia Completed 200804/13/2023 Not Available [facility] 3 03:50:18 Dysuria Completed 201908/21/2020 Problem Code: R30.0; Problem Code Type: ICD-10; Not Available [facility] 3 03:50:19 Cough Completed 201808/21/2020 Problem Code: R05; Problem Code Type: ICD-10; Not Available [facility] 3 03:50:19 Multiple nodules of lung Active [address], [facility] [address] , [facility]. 3 11:40:00 Malignant tumor of lung Active [address], [facility] [address] , [facility]. 3 11:40:57 Tricuspid valve regurgitation Active [address], [place], [address] , [facility]. 3 09:57:12 Aneurysm of ascending aorta Active 2022 3.56 CM dilation on echo completed 06/19/[address], [place], [address] , [facility] 3 09:57:54 Thyroid nodule Active [address], [place], [address] , [facility] 3 10:25:41 Edema of right lower limb Active [address], [place], [address] , [facility] 3 14:23:37 Non-cardiac chest pain Active [address], [place], [address] , [facility] 3 11:11:43 Pain of right breast Active [address], [place], [address] , [facility] 3 11:13:05 Problem Notes None recorded. Procedures Surgical History Date Name Laterality Status Provider Name and Address Organization Details Recorded Time 4 Date of Last Mammogram completed Unique Fields RN null, [facility] 07/26/2023 07:03:02 2 Most Recent Mammogram completed ADALID BLACKBURN CMA null, [facility] 06/28/2023 11:48:21 1 Date of Last Pap Smear completed CURLY HOWARD, [facility] 06/28/2023 11:48:11 Imaging Results Imaging Date Name Status LastModified by Organization Details LastModified Time 01/25/2024 electrocardiogram completed [address], [address], 01/31/2024 15:26:40 Procedure Notes None recorded. Medical Equipment None Reported. Allergies Allergen ID Allergen Name Allergen Category Reaction Reaction Severity Criticality Documentation Date Start Date Code Code System Note Provider Name and Address Organization Details Recorded Time sulfadiaz ine medicatio n other mild Not available 05/27/20232001 71639 RxNorm [facility] 4 20:26:32 99013 erythromy keith medicatio n other mild Not available 05/27/20232001 4053 RxNorm [facility] 4 20:26:14 58064 Sudafed medicatio n Not available Not available Not available 09/20/2023200530 2 RxNorm Nose bleed Reinaldo [facility] 4 20:28:00 04438 Plavix medicatio n wheezing moderate Not available 09/20/20232009 72577 2 RxNorm [facility] 4 20:28:28 Medications Name Sig Start Date Stop Date Status Note LastModified by Organization Details LastModified Time Toprol XL 50 mg tablet,ex tended release 2 tab qd 02/15 completed Not Available Not Available Not Available furosemid e 40 mg tablet TAKE ONE AND ONE-HALF TABLETS BY MOUTH EVERY MORNING 01/16 completed Per [facility] d/c summary 01/14/24 Not Available Not [...] Not Avai lable Nasonex 50 mcg/actua tion Isabel 1 spray each nostril bid prn 05/18 [...] Available Not Available No t Available FreeStyle Dorset Lite kit Dx: 2018 active Not Available [...] Updated DateTime 4 160.782 cm 32.2 kg/m2 90757.2 g 96.9 [degF] 95 % 95 % 69 /min 116 mm[Hg] 78 mm[Hg] Unique Fields RN [facility] 4 09:38:09 Social History Question Answer Notes LastModified by Organizat ion Details LastModified Time Tobacco Smoking Status Former Smoker PADMA ORTEZ RN [facility], [facility] 07/13/2023 13:54:57 What Was The Date Of Your Most Recent Tobacco Screening? 07/13/2023 Information not available 07/13/2023 Has Tobacco Cessation Counseling Been Provided? No [email or web address] Information not available 07/13/2023 Do You Or Have You Ever Used Any Other Forms Of Tobacco Or Nicotine? No [email or web address] Information not available 07/13/2023 Sex: Female Functional [...] Recorded Time Tdap 04/29/2014 completed Not Available [facility] 05:46:31 Pneumococcal conjugate PCV 13 05/18/2016 completed Not Available [facility] 05/27/2023 05:46:31 Influenza, split virus, trivalent, preservative 05/18/2016 completed Not Available [facility] 05/27/2023 05:46:31 Influenza, split virus, quadrivalent, preservative 05/25/2017 completed Not Available [facility] 05/27/2023 05:46:31 Influenza, MDCK, quadrivalent, PF 08/10/2019 completed Not Available [facility] 05/27/2023 05:46:32 Influenza, high-dose, quadrivalent, PF 04/27/2021 completed Not Available [facility] 05/27/2023 05:46:32 Influenza, high-dose, quadrivalent, PF 05/15/2020 completed Not Available [facility] 05/27/2023 05:46:32 Influenza, high-dose, quadrivalent, PF 06/15/2022 completed Not Available [facility] 05/27/2023 05:46:32 COVID-19, mRNA, LNP-S, PF, 100 mcg/0.5mL dose or 50 mcg/0.25mL dose 10/07/2020 completed Not Available [facility] 05/27/2023 05:46:32 COVID-19, mRNA, LNP-S, PF, 100 mcg/0.5mL dose or 50 mcg/0.25mL dose 11/04/2020 completed Not Available [facility] 05/27/2023 05:46:32 COVID-19, mRNA, LNP-S, PF, 100 mcg/0.5mL dose or 50 mcg/0.25mL dose 06/23/2021 completed Not Available [facility] 05/27/2023 05:46:32 pneumococcal polysaccharide PPV23 08/15/2019 completed Not Available [facility] 2022 05:46:32 pneumococcal polysaccharide PPV23 04/29/2014 completed Not Available [facility] 2022 05:46:32 Influenza, high-dose, quadrivalent, PF 06/29/2023 completed ADALID BLACKBURN [facility], [place] - [facility]. 06/29/2023 15:40:46 Past Encounters Encounter ID Performer Location Encounter Start Date Encounter Closed Date Diagnosis/Indication Diagnosis SNOMED-CT Code [id number] EDWARD SPAIN [address] [address] 01/18/2024 13:40:57 01/18/2024 15:07:40 Atrial fibrillation 98773442 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 178549414 Chronic ob structive pulmonary disease 89537926 [id number] HEATH YOUNG, [address] [address] 01/25/2024 09:05:16 01/25/2024 10:50:56 Type 2 diabetes mellitus without complication 418082483 Hyperparathyroidism 6699 9008 Atrial fibrillation 4943 6004 Heart failure 79705241 Neuropathy due to type 2 diabetes mellitus 817862182676192 Chronic ob structive pulmonary disease 04817999 Health Concerns Section Related Observation LastModified by Organization Detai ls LastModified Time None Recorded Concern Status LastModified by Organization Details LastModified Time None Recorded Payers Encounter Date Sequence Insurance Name Policy Number Policy Mina Covered Member ID Mina Member ID Guarantor Name 01/25/2024 2 [employer] (MEDICARE SUPPLEMENT) Edwige Davis [id number] Edwige Early Ryna 01/25/2024 1 [place]IC[place] [employer] Edwige Davis [id number] Edwige Early Ryan Notes Date Note Type Note Provider Name and Address Organization Details Recorded Time 01/25/2024 text/html HPI Notes: Edwige doubled her diltiazem 1 week ago. She does feel better compared to 1 week ago. 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 She is checking her weight every other day. She has not noticed any edema. ANDRE SPAINP [address], [place], [address], [facility]. 01/26/2024 12:00:52 OBGyn Episode No OBEpisode recorded.
--- OUTSIDE RECORDS SUMMARY | 2024-02-17 14:43 | XMS_ITS | Encounter Summary ---
Author Organization [facility] [place] [address] Care Team Providers Care Splicer Helper Name Role Phone Esther Verma APRN Primary Care Provider [phone] Encounter Details Date Type Department Care Team (Late st Contact Info) Description 05/13/2022 Ancillary Procedure [place] [phone] Maribel Dacosta MD [address] [place] [address] Social History Tobacco Use Types Packs/Day Years [...] CT Chest (05/13/2022 12:00 AM EDT) Narrative [facility] - 07/13/2022 11:42 AM EST This exam is auto-finalizing. It's purpose is for storage only. Maribel Dacosta MD IM FILM LIBRARY ORD ERABLES [place], [place] documented in this encounter Visit Diagnoses Not on filedocumented in this encounter Care Teams Splicer Helper Relationship Specialty Start Date End Date Esther Verma APRN [address] [place] [address] PCP - General Family Medicine 11/25/20 documented as of this encounter
--- OUTSIDE RECORDS SUMMARY | 2024-02-17 14:43 | XMS_ITS | Encounter Summary ---
Author Organization [facility] Address [address] [place] [address] Care Team Providers Care Warp Drawer Name Role Phone Esther Verma EDWARD Primary Care Provider [phone] Cleve Farmer MD Unavailable [phone] Reason for Referral * Radiology Services (Routine/Next Available) - Receiving Office to Obtain Authorization Specialty Diagnoses / Procedures Referred By Chau car Referred To Contact Diagnoses History of lung cancer Procedures CT CHEST WO CONTRAST CT CHEST WO CONTRAST Cleve Farmer MD [address] [place] [phone] [facility] Referral ID Status Reason Start Date Expiration Date Visits Requested Visits Authorized [id number] Receiving Office to Obtain Authorization 12/02/2023 1 1 * Consult (Routine/Next Available) - Closed Specialty Diagnoses / Procedures Referred By Chau car Referred To Contact Endocrinology Diagnoses Thyroid nodule Cleve Farmer MD [address] [place] [phone] [facility] [address] [place] [address] Referral ID Status Reason Start Date Expiration Date V isits Requested Visits Authorized [id number] Closed Specialty Services Required 12/02/2023 1 1 Question Answer Reason for Request: Pt with 1.4 cmy thryoid nodule, bx has been attempted unable to obtain tissue. Pt would like follow up at [facility]. Reason for Visit * Reason Comments Lung Cancer Follow up Encounter Details Date Type Department Care Team (Late st Contact Info) Description 12/02/2023 10:30 EDT Office Visit [facility] Cancer Center Radiation Oncology - [address] [phone] Cleve Farmer MD [address] [place] [address], [facility], [address] [place] [address] Thyroid nodule (Primary Dx); History [...] She prefers not to go back to [facility], and would prefer to go back to [facility]. She does have a 1.4 cmthyroid nodule. It appears to be stable on serial CT imaging. This probably does need to be addressed further, I am not sure of the right neck steps. To the patient's knowledge she is not a surgical candidate due to her chronic A-fib. I think she needs to see the manager functional to outline the appro priate next steps. Recommendations: Follow-up in [address] chest and same day visit. Referral to [facility] endocrinology placed. Continue follow-up with dermatology Subjective: [...] cancer, she is following up with a interior design professional and has been using a cream on [...] Description 06/08/2024 13:30 EST Appointment [facility] Radiology CT Outpatient - [address] [id number] 06/08/2024 14:30 EST Office Visit [facility] Cancer Center Radiation Oncology - [address] [phone] Cleve Farmer MD [address] [place] [phone] Scheduled Orders Name Type Priority Associated [...] lung documented in this encounter Care Teams Warp Drawer Relationship Specialty Start Date End Date Esther Verma FNP [address] [place] [phone] PCP - General 07/27/22 Cleve Farmer MD [address] [place] [phone] Radiation Oncology 10/21/22 documented as of this encounter
--- OUTSIDE RECORDS SUMMARY | 2024-02-17 14:43 | XMS_ITS | Encounter Summary ---
Author Organization Formerly [facility] [place] [address] Care Team Providers Care Wire Straightener Name Role Phone Esther Verma APRN Primary Care Provider [phone] Encounter Details Date Type Department Care Team (Late st Contact Info) Description 08/23/2022 Ancillary Procedure [place] [phone] Esther Verma APRN [address] [place] [address] Social History Tobacco Use Types Packs/Day Years [...] DX Chest (08/23/2022 12:00 AM EST) Narrative [facility] - 09/02/2022 11:36 AM EST This exam is auto-finalizing. It's purpose is for storage only. Esther Verma APRN IMG FILM LIBRARY ORD ERABLES [facility] [place] documented in this encounter Visit Diagnoses Not on filedocumented in this encounter Care Teams Wire Straightener Relationship Specialty Start Date End Date Esther Verma APRN [address] [place] [address] PCP - General Family Medicine 11/25/20 documented as of this encounter
--- OUTSIDE RECORDS SUMMARY | 2024-02-17 14:43 | XMS_ITS | Encounter Summary ---
[place] [address] Care Team Providers Care Dermatology Nurse Practitioner Name Role Phone Esther Verma APRN Primary Care Provider [phone] Reason for Referral * Diagnostic Test (Routine) - Closed Specialty Diagnoses / Procedures Referred By Contac t Referred To Contact Radiology Diagnoses Lung nodule Procedures NM PET CT Skull Base to Mid-thigh Maribel Dacosta MD [address] [place] [address] [place] [address] Referral ID Status Reason Start Date Expiration Date V isits Requested Visits Authorized [id number] Closed Specialty Service Requested 06/16/2022 12/15/2023 1 1 Reason for Visit * Diagnostic Test (Routine) - Closed Specialty Diagnoses / Procedures Referred By Contac t Referred To Contact Radiology Diagnoses Lung nodule Procedures NM PET CT Skull Base to Mid-thigh Maribel Dacosta MD [address] [place] [address] [place] [address] Referral ID Status Reason Start Date Expiration Date V isits Requested Visits Authorized [id number] Closed Specialty Service Requested 06/16/2022 12/15/2023 1 1 Encounter Details Date Type Department Care Team (Latest Contact Info) Description 07/13/2022 8:10 AM EST Hospital Encounter [place] [address] Maribel Dacosta MD [address] [place] [address] Lung nodule Discharge Disposition: Home Social History [...] who have questions please contact the health zoo caretaker that requested your imaging first. ? Narrative 07/13/2022 12:08 PM EST EXAMINATION: NM PET CT STANDARD SKULL BASE TO MID-THIGH CLINICAL HISTORY: lung nodule less than 3 cm; initial treatment evaluation. TECHNIQUE: Following IV injection of 77-tqynvi-7-deoxyglucose (FDG) a standard uptake of approximately 60 [...] initial treatmentevaluation. TECHNIQUE: Following IV injection of 00-wlweym-1-deoxyglucose (FDG) astandard uptake of approximately 60 minutes, [...] patients who have questions please contactthe health zoo caretaker that requested your imaging first. Maribel Dacosta [...] Arm documented in this encounter Care Teams Dermatology Nurse Practitioner Relationship Specialty Start Date End Date Esther Verma APRN [address] [place] [address] PCP - General Family Medicine 11/25/20 documented as of this encounter
--- OUTSIDE RECORDS SUMMARY | 2024-02-17 14:43 | XMS_ITS | Encounter Summary ---
Author Organization [facility] [place] [address] Care Team Providers Care Can Feeder Name Role Phone Kamilla Silvestre MD Primary Care Provider [phone] Encounter Details Date Type Department Care Team (Late st Contact Info) Description 10/01/2014 Orders Only Cardiology at [address] [phone] Triston Tomas MD [facility] [place] [address] Social History Tobacco Use Types Packs/Day Years [...] is a Non-reportable exam Triston Tomas MD [facility] FILM LIBRARY ORD ERABLES documented in this encounter Visit Diagnoses Not on filedocumented in this encounter Care Teams Can Feeder Relationship Specialty Start Date End Date Kamilla Silvestre MD [address] [place] [address] PCP - General 02/13/13 11/24/20 documented as of this encounter
--- OUTSIDE RECORDS SUMMARY | 2024-02-17 14:43 | XMS_ITS | Referral Summary ---
Author Organization [facility] Address [address] [place] [address] Care Team Providers Care Gas Engine Mechanic Name Role Phone Bayron Esther EDWARD Primary Care Provider [phone] Pj Bourne MD Unavailable [phone] Encounters Date Type Department Care Team Description 02/14/2024 13:45 EDT Office Visit [facility]iology Clinic [address] [place], [place] [address] Taj Lei MD Permanent atrial fibrillation (HCC-CMS) (Primary Dx); Current use of custodial anticoagulation; ACC/AHA stage C heart failure with preserved ejection fraction (HCC-CMS); Diabetes mellitus type 2, insulin dependent (HCC-CMS); Essential hypertension 01/25/2024 Lab Requisition [facility] Pathology & Laboratory Medicine - [address] [address] Outr Resulting Lab, Provider 12/17/2023 Telephone [facility] Endocrinology - [address] [address] Ragini Pérez DO 12/02/2023 10:30 EDT Office Visit [facility] Radiation Oncology - [address] [phone] Pj Bourne MD Thyroid nodule (Primary Dx); History of lung cancer 12/02/2023 8:17 EDT - 12/02/2023 23:59 EDT Hospital Encounter [facility] Radiology CT - [address] [phone] Primary cancer of right upper lobe of [...] Diagnosed Date Nontoxic multinodular goiter 08/04/2023 Diabetes ([facility]) 05/16/2023 Primary cancer of right upper lobe of lung ([facility]) 07/26/2022 Cancer Staging:Clinical:Stage IA2(cT1b, cN0, cM0) - Signed by Pj Bourne MD on 09/13/2022 Overview: Added automatically from request for surgery [id number] Resolved Problems Problem Noted Date Diagnosed Date Resolved Date Malignant neoplasm of upper lobe, right bronchus or lung ([facility]) 10/18/2022 11/11/2022 Social History Tobacco Use Types [...] Contact Info) Description 06/08/2024 13:30 EST Appointment [facility] Radiology CT Outpatient - [address] [phone] 06/08/2024 14:30 EST Office Visit [facility] Radiation Oncology - [address] [phone] Pj Bourne MD [address] [place] [address], Level [address] [place] [address] Procedures Procedure Name Priority Date/Time [...] EDT) 02/14/2024 14:1 6 EDT Scan 2 [facility] PROCEDURE/MINOR [facility] GICAL ORDERABLES * EKG 12-LEAD (02/14/2024 13:44 EDT) 02/14/2024 13:4 4 EDT Narrative [facility] - 02/14/2024 13:50 EDT ? CVC ? Test Date: ?2024-02-14 Pat Name: ? EDWIGE BYERS ? Department: ? Room: ? Gender: ? Female ? Wound Specialist: ?? sal : ?1950 ? Requested By: DO VANG Order Number: [id number] ? Adan ALY: ?? TAJ LEI MD ? Measurements Intervals ?[place] ? Rate: ? 75 ? P: ?0 [place]: ? 0 ?QRS: ?73 QRSD: ? 84 [...] Name: EDWIGE BYERS Department: Room: Gender: Female Wound Specialist: sal : 1950 Requested By: DO VANG Order Number: [id number] Reading MD: TAJ LEI MD Measurements Intervals [place] Rate: 75 P: 0 [place]: 0 QRS: 73 QRSD: 84 T: 182 QT: 410 QTc: 457 Interpretive Statements Atrial fibrillation Nonspecific ST and T wave abnormality No previous ECG available for comparison I reviewed the tracing and have either agreed or edited the findings inthis report. Electronically Signed On 02-14-2024 13:50:03 EDT by TAJ ZAMBRANO. Taj Lei MD CARDIAC ECG ORDERABL ES [facility] * (ABNORMAL) PTH INTACT (01/25/2024 10:30 EDT) Intact PTH 104(H) 19 - 88 pg/mL 01/26/2024 8:32 EDT [facility] Blood VENOUS BLOOD / Unknown 01/25/2024 10:30 EDT 01/25/2024 21:59 EDT Provider Outr Resulting Lab CHEMISTRY & BLOOD GAS ORDERABLES [facility] [address] [place] [address] * CT CHEST WO CONTRAST (12/02/2023 8:35 EDT) Anatomical Region Laterality Modality Chest Computed Tomogra phy 12/02/2023 9:21 EDT Impressions 12/02/2023 9:21 EDT 1. ??Expected post radiation changes in the right upper lobe. 2. ??Multiple stable groundglass lesions within both lungs, continued long-term CT surveillance is needed. 3. ??Additional chronic findings above. [id number] Narrative 12/02/2023 9:[address] CHEST WO [...] the left T4 vertebra. Resulting Agency Comment [id number] Procedure Note Soy Goodman MD - 12/02/2023 [...] is needed. 3. Additional chronic findings above. [id number] Pj Bourne MD IMG CT ORDERABLES from Last 3 Months Care Teams Gas Engine Mechanic Relationship Specialty Start Date End Date Esther Verma FNP [address] [place] [phone] PCP - General 07/27/22 Pj Bourne MD [address] [place] [address] [address] [place] [address] Radiation Oncology 10/21/22
--- OUTSIDE RECORDS SUMMARY | 2024-02-17 14:43 | XMS_ITS | Encounter Summary ---
Author Organization [facility] Address [address] [place] [address] Care Team Providers Care Aircraft Mechanic Name Role Phone Esther Verma Primary Care Provider [phone] Pj Bourne MD Unavailable [phone] Encounter Details Date Type Department Care Team (Late st Contact Info) Description 12/17/2023 Telephone [facility] Endocrinology - [facility] [address] [place] [address] Ragini Pérez DO [address] [facility] [address] [place] [address] Social History Tobacco Use Types [...] EDT Spoke with pt. Pt is using [facility] for their care now. * Telephone Encounter - Stephania Mendoza - 12/17/2023 1029 EDT ----- Message from Irene Goldsmith DO sent at 11/11/2023 22:10 EDT ----- This patient needs follow up soon with Dr. Pérez or another provider, thanks. documented in this encounter Plan of Treatment Upcoming Encounters Date Type Department Care Team (Late st Contact Info) Description 06/08/2024 13:30 EST Appointment [facility] Radiology CT Outpatient - [address] [phone] 06/08/2024 14:30 EST Office Visit [facility] Radiation Oncology - [address] [phone] Pj Bourne MD [address] [place] [phone] documented as of this encounter Visit Diagnoses Not on filedocumented in this encounter Care Teams Aircraft Mechanic Relationship Specialty Start Date End Date Esther Verma FNP [address] [place] [address] [address] [place] [phone] PCP - General 07/27/22 Pj Bourne MD [address] [place] [phone] Radiation Oncology 10/21/22 documented as of this encounter
--- OUTSIDE RECORDS SUMMARY | 2024-02-17 14:43 | XMS_ITS | Encounter Summary ---
Author Organization [facility] [place] [address] Care Team Providers Care Senior Compensation Consultant Name Role Phone Esther Verma APRN Primary Care Provider [phone] Encounter Details Date Type Department Care Team (Latest Contact Info) Description 09/15/2022 12:49 PM EST - 09/15/2022 11:59 PM EST [place] [phone] Discharge Disposition: Home Social History Tobacco Use [...] Procedure Name Priority Date/Time Associated Diagnosis Comments NON-RETAIL PRICING COORDINATOR FINAL REPORT Routine 09/15/2022 12:53 PM EST documented in this encounter Results * (ABNORMAL) Non-Corporate Quality Assurance Manager Final Report (09/15/2022 12:53 PM EST) Non-Corporate Quality Assurance Manager Final Report [id number] ? Location: [facility] The signing pathologist has (i) examined the relevant preparation(s) for the specimen(s) and (ii) rendered or confirmed the diagnosis(es). . ? Non-Corporate Quality Assurance Manager Final DIAGNOSIS Positive for Malignancy Electronically signed by: ?Shikha ALY, Javan Early Verified: ??09/17/2022 14:57 ??Pathologist Performed at: ??-[facility] Dept. of Pathology, [place] [address] Undercover Agent: Shagufta Perera MD, FCAP, ??CLIA Certificate: [id number] DISCUSSION Lung, right upper lobe (CT-guided FNA): [...] in RUL ??. Received 5 slide(s) labeled [id number] Received 0 block(s). Specimen collection date: ? 08/23/2022. For the full text of the [facility] ([facility]) report(s), please refer to [facility]. [facility] Tracking #: ? [id number] . Report to: [facility] Surgical Pathology Department [facility], [facility], 2nd Floor [address] [place], [place] ??[address] (A) [facility] 09/15/2022 12:5 3 PM EST George Garcia MD PATHOLOGY/CYTOLOGY O RDERABLES [facility] [place] [address] documented in this encounter Visit Diagnoses Not on filedocumented in this encounter Care Teams Senior Compensation Consultant Relationship Specialty Start Date End Date Esther Verma APRN [address] [place] [address] PCP - General Family Medicine 11/25/20 documented as of this encounter
--- OUTSIDE RECORDS SUMMARY | 2024-02-17 14:43 | XMS_ITS | Encounter Summary ---
Author Organization [facility] [place] [address] Care Team Providers Care Upper Extremity Surgeon Name Role Phone Esther Verma APRN Primary Care Provider [phone] Reason for Visit * Diagnostic Test (Routine) - Closed Specialty Diagnoses / Procedures Referred By Contac t Referred To Contact Radiology Diagnoses Lung nodule Procedures NM PET CT Skull Base to Mid-thigh Maribel Dacosta MD [address] [place] [address] [place] [address] Referral ID Status Reason Start Date Expiration Date V isits Requested Visits Authorized [id number] Closed Specialty Service Requested 06/16/2022 12/15/2023 1 1 Encounter Details Date Type Department Care Team (Latest Contact Info) Description 07/13/2022 8:11 AM EST - 07/13/2022 11:59 PM [facility] Hospital Encounter [place] [address] Maribel Dacosta MD [address] [place] [address] Discharge Disposition: Home Social History [...] POC Glucose 141 65 - 199 mg/dL [facility] Comment: Supplemental ranges: <140 mg/dL before meals <180 mg/dL all other times of the day Blood 07/13/2022 8:21 AM EST 07/13/2022 8:21 AM EST Maribel Dacosta MD POINT OF CARE TEST O RDERABLES Performing Organization Address City/State/[facility] Co de Phone Number [facility] [place] [address] documented in this encounter Visit Diagnoses Not [...] mg documented in this encounter Care Teams Upper Extremity Surgeon Relationship Specialty Start Date End Date Esther Verma APRN [address] [place] [address] PCP - General Family Medicine 11/25/20 documented as of this encounter
--- OUTSIDE RECORDS SUMMARY | 2024-02-17 14:43 | XMS_ITS | Encounter Summary ---
Author Organization [facility] Address [address] [place] [address] Care Team Providers Care Java Developer Architect Name Role Phone Esther Verma Primary Care Provider [phone] Pj Bourne MD Unavailable [phone] Reason for Visit * Reason Onset Date Comments Appointment Related 11/14/2023 Encounter Details Date Type Department Care Team (Late st Contact Info) Description 11/14/2023 Telephone [facility] Endocrinology - [facility] [address] [place] [address] Ragini Pérez DO [address] [employer] [facility] [address] [place] [address] Appointment Related Social History Tobacco [...] Contact Info) Description 06/08/2024 13:30 EST Appointment [facility] Radiology CT Outpatient - [address] [phone] 06/08/2024 14:30 EST Office Visit [facility] Radiation Oncology - [address] [phone] Pj Bourne MD [address] [place] [phone] documented as of this encounter Visit Diagnoses Not on filedocumented in this encounter Care Teams Java Developer Architect Relationship Specialty Start Date End Date Esther Verma FNP [address] [place] [phone] PCP - General 07/27/22 Pj Bourne MD [address] [place] [phone] Radiation Oncology 10/21/22 documented as of this encounter
--- OUTSIDE RECORDS SUMMARY | 2024-02-17 14:43 | XMS_ITS ---
Author Organization [facility] Address [address] [place] [address] Care Team Providers Care Envelope Machine Operator Name Role Phone Esther Verma EDWARD Primary Care Provider [phone] Pj Bourne MD Unavailable [phone] Active Problems Problem Noted Date Diagnosed Date Nontoxic multinodular goiter 08/04/2023 Diabetes ([facility]) 05/16/2023 Primary cancer of right upper lobe of lung ([facility]) 07/26/2022 Cancer Staging:Clinical:Stage IA2(cT1b, cN0, cM0) - Signed by Pj Bourne MD on 09/13/2022 Overview: Added automatically from request for surgery [id number] Current Oncology Plans No current plan information [...] of upper lobe, right bronchus or lung ([facility]) 10/18/2022 11/11/2022
--- OUTSIDE RECORDS SUMMARY | 2024-02-17 14:43 | XMS_ITS | Encounter Summary ---
Author Organization [facility] [place] [address] Care Team Providers Care Prepared Foods Service Team Member Name Role Phone Kamilla Pierre MD Primary Care Provider [phone] Encounter Details Date Type Department Care Team (Latest Contact Info) Description 10/01/2014 11:12 AM EDT - 10/01/2014 10:03 PM EDT Hospital Encounter Intermediate [place] [address] Triston Tomas MD [facility] [place] [address] Chest tightness or pressure; ACS (acute coronary [...] Edwige Davis Patient Age: 63 y.o. Language: Nigerian Race: White Ethnicity: Not nor Admit date: 10/01/2014 Discharge date and time: 10/01/2014 Attending Physician: Triston Tomas MD Discharge Physician: Triston Tomas MD Follow-up Recommendations for Providers: 1. reeval for non cardiac causes of CP Inpatient Provider Contact Information: BELINDA Melgoza Armin, MD [phone] Discharge Diagnoses (Hospital Problems) and Secondary Diagnoses (Chronic Problems): Active Hospital Problems Diagnosis ??? Dyslipidemia Lab 07/02/08: TC 179, LDL 105, HDL 35, TG 194 Lab 09/19/08: TC 123, LDL 72, HDL 44, TG 100 ??? Depression ??? Hx DE ??? Former smoker ??? PAF (paroxysmal atrial [...] of Presentation: 63 yo with known Hx DE/ CAD, previous stents had recurrent mid scapular [...] when she still could sleep. Seen at [facility] 10/01/2014 and workup showed a troponin of 0.06 EKG with old inferior Qs and lateral TWI. She was treated with IV MS x 1 and 3 SL NTG then NTG gtt which she feels finally helped and arranged for transfer to [facility]. She was pain free on arrival but needed increased gtt en route. +nausea post MS dose Hospital Course: On admission to [facility], the patient had no complaints of chest [...] appointments: -During 8am-5pm Tuesday through Tuesday call [phone] to speak with a nurse in the cardiology clinic -All other times call [phone] and ask to speak to the transport specialist aircraft air conditioning mechanic. Return to work/ usual actvities: 1 week as tolerated. No lifting more than 10 pounds until then. Nosoaking R wrist until site healed. Driving: No driving for 48 hours after catheterization. Follow up Appointments: PCP: KAMILLA PIERRE MD ; [phone] . Follow up for other causes of back pain. Cardiology; Dr. Lennon as needed. Discharge References/Attachments None Signed: BELINDA Melgoza Pager [phone] DATE: 10/01/2014 documented in this encounter Discharge Instructions * Discharge Instructions* Amee Rainey PA - 10/01/2014 5:39 PM EDT Cardiology Instructions Call your doctor if: Chest pain, dyspnea, pain or swelling in legs occurs. If you have non-emergent questions between now and the time of your follow up appointments: -During 8am-5pm Tuesday through Tuesday call [phone] to speak with a nurse in the cardiology clinic -All other times call [phone] and ask to speak to the transport specialist aircraft air conditioning mechanic. Return to work/ usual actvities: 1 week as tolerated. No lifting more than 10 pounds until then. Nosoaking R wrist until site healed. Driving: No driving for 48 hours after catheterization. Follow up Appointments: PCP: KAMILLA PIERRE MD ; [phone] . Follow up for other causes of [...] Ferny De La Rosa, Cardiology hospitalist Pager [phone]. documented in this encounter H&P Notes * [...] 44, TG 100 ??? Depression ??? Hx DE ??? Former smoker ??? PAF (paroxysmal atrial [...] Illness: HPI 63 yo with known Hx DE/ CAD, previous stents had recurrent mid scapular [...] when she still could sleep. Seen at [facility] 10/01/2014 and workup showed a troponin of 0.06 EKG with old inferior Qs and lateral TWI. She was treated with IV MS x 1 and 3 SL NTG then NTG gtt which she feels finally helped and arranged for transfer to [facility]. She was pain free on arrival but [...] 63 yo wf with known CAD, hx DE, previous BMS (nosebleeds) to RCA and LAD, separate procedures, in 06/24. with recurrent scapular back pain similar to her previous angina. TREATMENT PLAN: Scaplular pain consistent with previous anginal equal though prolonged pain and (now resolved) withnegative cardiac enzymes Echo done with formal read pending [facility] today for definitive diagnosis Other non [...] Procedure Name Priority Date/Time Associated Diagnosis Comments CARPET MEASURER SCAN 10/02/2014 12:00 AM EDT CARDIAC CATHETERIZATION Routine 10/02/19 15 4:27 PM EDT ECHOCARDIOGRAM TRANSTHORACIC Routine 10/01/2014 2:12 PM EDT ACS (acute coronary syndrome) CARDIAC ENZYMES ([facility]) STAT 10/01/2014 1:46 PM EDT EKG 12-LEAD STAT 10/01/2014 11:39 AM EDT Chest tightness or pressure documented in this encounter Results * SCAN DOC: CARPET MEASURER (10/02/2014 12:00 AM EDT) Anatomical Region Laterality Modality Other Scanning Provider MEDIA MGR SCAN EXT O RDR/RSLT * CARDIAC CATHETERIZATION (10/01/2014 4:27 PM EDT) Anatomical Region Laterality Modality Other Narrative 10/01/2014 4:54 PM EDT ?[facility] ? Cardiac Catheterization/Intervention Report ? Patient Name: Ediwge Davis. ? Procedure Date: 10/01/2014 ? A #: [id number] ? Primary Physician: Neil Weaver V ? Case #: [id number] ? File Name: [id number] ? Catheterization Order Number: [id number] ? [facility] ? Final Report [place], [place] ? Patient Name: ? Edwige Davis ?ID#: ?[id number] ? : ?1950 ? Procedure Date: ? [...] at Catheterization: ?The patient presented with: non-STEMI. [place] ?angina class was III. This [...] Procedure Note Neil Weaver MD - 10/01/2014 [facility] Cardiac Catheterization/Intervention Report Patient Name: Edwige Davis Procedure Date: 10/01/2014 A #: [id number] Primary Physician: Neil Weaver V Case #: [id number] File Name: [id number] Catheterization Order Number: [id number] [facility] FinalReport [place], [place] Patient Name: Edwige Davis ID#:[id number] :1950 Procedure Date: October 01, 2014 Case [...] at Catheterization: The patient presented with: non-STEMI. [facility] angina class was III. This patient [...] * Echocardiogram Transthoracic(Leb) (10/01/2014 2:12 PM EDT) [facility] Anatomical Region Laterality Modality Other 10/01/2014 Narrative 10/01/2014 2:56 PM EDT Procedure: ? Transthoracic Echocardiogram Patient: ? MODESTA Early ? (Age): 1950(63) Med Rec#: ?[id number] ? Sex: ?F ? Site Loc: ?DH ? Ht / Wt: ??160(cm)/85(kg) Pt. Loc: ? Adult Floor ?BSA: ?1.94 Study Date: ?10/01/2014 ? Pt. Type: Inpatient Tape: ? Referring: Triston Tomas ([id number]) Cable Installer Repairer: Francois Herrera Diagnosis:CPT Code(s): ??Echo Full (84583), ??Spectral Doppler (91920), Color Doppler (46093), Indication(s): ??CAD, H/O Rhythm: Sinus HR ?BP [...] ? Mid-Inferior ?Normal ? Mid-Inferoseptal ?Normal ? [place]-Septal ? Normal ? [place]-Anterior ? Normal ? [place]-Lateral ?Normal ? [place]-Inferior ? Normal ? [place]-Tip ?Normal ? Chambers ?Value ?Units (Range) ? [...] 10/01/2014 14:55:47 Images reviewed and interpretation verified [facility] Cardiac Ultrasound Laboratory Procedure Note Han Andrade MD - 10/01/2014 Procedure: Transthoracic Echocardiogram Patient: MODESTA Early DOB(Age): 1950(63) Med Rec#: [id number] Sex: F Site Loc: [facility] Ht / Wt: 160(cm)/85(kg) Pt. Loc: Adult Floor BSA: 1.94 Study Date: 10/01/2014 Pt. Type: Inpatient Tape: Referring: Triston Tomas ([id number]) Cable Installer Repairer: Francois Herrera Diagnosis:CPT Code(s): Echo Full (25964), Spectral Doppler (44218), Color Doppler (14569), Indication(s): CAD, H/O Rhythm: Sinus HR BP [...] Normal Mid-Posterolateral Normal Mid-Inferior Normal Mid-Inferoseptal Normal [place]-Septal Normal [place]-Anterior Normal [place]-Lateral Normal [place]-Inferior Normal Bristol-Tip Normal Chambers Value Units (Range) IVSd 2D [...] 10/01/2014 14:55:47 Images reviewed and interpretation verified [facility] Cardiac Ultrasound Laboratory Triston Tomas MD ECHO ORDERABLES * Cardiac Enzymes (10/01/2014 1:46 PM EDT) Troponin-T <0.03 <=0.03 ng/mL [facility] Comment: 0.03 ng/mL: Represents the 99th percentile upper reference limit for normals. >0.03 ng/mL: Elevated cardiac troponin T level indicative of myocardial damage. Diagnosis of acute, evolving or recent DE requires a typical rise and gradual fall [...] consensus document of the Joint Society of Cardiology/[place] College of Cardiology Committee for the redefinition of myocardial infarction. ??Journal of the [place] College of Cardiology 2000; 36: 959-969] CK, Total 96 0 - 160 unit/L MARCIA CABRERA Blood specimen (specimen) 10/01/2014 1:46 PM EDT 10/01/2014 1:58 PM EDT Narrative Resulting Agency Comment Spec In Lab Triston Tomas MD CHEMISTRY ORDERABLES Performing Organization Address [facility] Co de Phone Number MARCIA CABRERA * EKG 12 Lead (10/01/2014 11:39 AM EDT) Ventricular rate 64 BPM MUSE SYSTEM Atrial Rate 64 BPM MUSE SYSTEM P-R Interval 168 ms MUSE SYSTEM QRS Duration 82 ms MUSE SYSTEM Q-T Interval 452 ms MUSE SYSTEM QTC Calculated (Bezet) 466 ms MUSE SYSTEM Calculated P Austin 48 degrees MUSE SYSTEM Calculated R [place] 37 degrees MUSE SYSTEM Calculated T Austin 139 degrees MUSE SYSTEM INTERPRETATION Normal sinus [...] Tomas MD ECG ORDERABLES Performing Organization Address [facility] Co de Phone Number MUSE SYSTEM documented in this encounter Visit Diagnoses Diagnosis Chest tightness or pressure Other chest pain ACS (acute coronary syndrome) Intermediate coronary syndrome CAD (coronary artery disease) Coronary atherosclerosis of unspecified type of vessel, hamilton or graft CAD (coronary artery disease) Coronary atherosclerosis of unspecified type of vessel, hamilton or graft Depression Depressive disorder, not elsewhere classified Dyslipidemia Other and unspecified hyperlipidemia HTN (hypertension) Unspecified essential hypertension Hx DE Old myocardial infarction Former smoker Personal history [...] Routine 2032 (Given - Provid er: Hallie Clakre RN) Continuous Medication Order 09/29/2014 09/30/2014 10/01/2014 [...] MD) documented in this encounter Care Teams Prepared Foods Service Team Member Relationship Specialty Start Date End Date Kamilla Pierre MD [address] [place] [address] PCP - General 02/13/13 11/24/20 documented as of this encounter
--- OUTSIDE RECORDS SUMMARY | 2024-02-17 14:43 | XMS_ITS | Encounter Summary ---
Author Organization [facility] Address [address] [place] [address] Care Team Providers Care Emissions Repair Technician Name Role Phone Esther Verma Primary Care Provider [phone] Pj Bourne MD Unavailable [phone] Reason for Referral * Radiology Services (Routine/Next Available) - Authorization Not Required Specialty Diagnoses / Procedures Referred By Contac t Referred To Contact Diagnoses Nontoxic multinodular goiter Procedures US GUIDED NECK FNA Ragini Pérez DO [address] [place] [phone] [facility] Referral ID Status Reason Start Date Expiration Date Visits Requested Visits Authorized [id number] Authorization Not Required 08/30/2023 1 1 Reason for Visit * Radiology Services (Routine/Next Available) - Authorization Not Required Specialty Diagnoses / Procedures Referred By Contdakotah car Referred To Contact Diagnoses Nontoxic multinodular goiter Procedures US GUIDED NECK FNA Ragini Pérez DO [address] [place] [phone] [facility] Referral ID Status Reason Start Date Expiration Date Visits Requested Visits Authorized [id number] Authorization Not Required 08/30/2023 1 1 Encounter Details Date Type Department Care Team (Latest Contact Info) Description 10/13/2023 11:47 EDT - 10/13/2023 23:59 EDT Hospital [facility] Radiology US - Main [address] [place] [address] Nontoxic multinodular goiter Discharge Disposition: Home or [...] Appointment [facility] Radiology CT Outpatient - [address] [id number] 06/08/2024 14:30 EST Office Visit [facility] Cancer Center Radiation Oncology - [address] [id number] Pj Bourne MD [address] [place] [address], [address] [place] [phone] documented as of this encounter Procedures Procedure Name Priority Date/Time Associated Diagnosis Comments US GUIDED NECK FNA Routine 10/13/2023 15 :08 EDT Nontoxic multinodular goiter NON DESKTOP PUBLISHING OPERATOR/FNA CYTOLOGY Routine 10/13/2023 13:03 EDT Nontoxic multinodular goiter documented in this encounter Results * US GUIDED NECK FNA (10/13/2023 15:08 EDT) Anatomical Region Laterality Modality Neck Ultrasound 10/16/2023 19:3 5 EDT Impressions 10/16/2023 19:35 EDT Technically difficult biopsy of the 1.4 cm TI-RADS 5 nodule in the deep inferior aspect of the left thyroid lobe. ??Adequate cellular material for diagnosis was not obtained. [id number] Narrative 10/16/2023 19:35 EDT US GUIDED NECK [...] Adequate cellular material fordiagnosis was not obtained. [id number] Ragini Pérez DO IMG US ORDERABLES * NON DESKTOP PUBLISHING OPERATOR/FNA CYTOLOGY (10/13/2023 13:03 EDT) Note to Patient The following pathology results have been interpreted by your pathologist and may be available to you before your health provider has had the opportunity to review them. Please allow time for your provider to receive these results and explore management options, if applicable. 10/14/2023 16:32 [facility] Final Diagnosis A. THYROID, LEFT, 1.5 CM NODULE, ULTRASOUND GUIDED FINE NEEDLE ASPIRATION: - Non-diagnostic specimen. See comment. 10/14/2023 16:32 [facility] Diagnosis Comment Aspirate smears are acellular, demonstrating blood only. If clinical suspicion of neoplasm persists, additional sampling should be considered. 10/14/2023 16:32 [facility] Attestation There was significant resident/fellow involvement in the diagnostic evaluation of this case. By the signature below, the attending physician certifies that they have personally conducted a gross and/or microscopic examination of the described specimens and rendered or confirmed the above diagnosis. 10/14/2023 16:32 [facility] at 1632 Rapid Diagnosis A. THYROID, DEEP INFERIOR, LEFT LOBE, 1.5 CM, ULTRASOUND GUIDED FINE NEEDLE ASPIRATION: Evaluation Episode 1: Pass 1-3: Blood only Evaluation Episode 2: Pass 4: Blood only Evaluation Episode 3: Pass 5-7: Essentially blood only Rapid interpretation performed by: Dr. Patrick Blackburn; 10/13/2023; 1430 10/14/2023 16:32 EDT [facility] Clinical History Nontoxic multinodular goiter 10/14/2023 16:32 T [facility] Gross Description A. 9 fixed prepared slides, 2 air dried prepared slides, and 1 tube of CytoLyt were received and processed by selective cellular enhancement technique. 10/14/2023 16:32 T [facility] Resident/Vinny w: Elena Mathis MD 10/14/2023 16:32 T [facility] Performing Lab [facility] 10/14/2023 16:32 T [facility] Scanned Images 10/14/2023 16:32 [facility] Fine Needle Aspirate SPECIMEN FROM THYROID / Unknown 10/13/2023 13:03 EDT 10/13/2023 14:38 EDT Chacorat Scherer MD PATHOLOGY ORDERABLES [facility] [address] [place] [address] documented in this encounter Visit Diagnoses Diagnosis Nontoxic multinodular goiter documented in this encounter Orders Medications Ordered That Mohinder ht Not Have Been Administered Count Last Ordered Date First Ordered Date lidocaine 1 % injection 20 mL 1 10/13/2023 documented in this encounter Care Teams Emissions Repair Technician Relationship Specialty Start Date End Date Esther Verma FNP [address] [place] [phone] PCP - General 07/27/22 Pj Bourne MD [address] [place] [address] [address] [place] [address] Radiation Oncology 10/21/22 documented as of this encounter
--- OUTSIDE RECORDS SUMMARY | 2024-02-17 14:43 | XMS_ITS | Encounter Summary ---
Author Organization [facility] Address [address] [place] [address] Care Team Providers Care Medical Insurance Biller Name Role Phone Esther Verma Primary Care Provider [phone] Pj Bourne MD Unavailable [phone] Encounter Details Date Type Department Care Team (Late st Contact Info) Description 09/05/2023 Orders Only [facility] Radiology - [address] [phone] Marcus Garcia MD [address] [facility], [address] [place] [phone] Social History Tobacco Use Types Packs/Day Years [...] Info) Description 06/08/2024 13:30 EST Appointment [facility] Radiology CT Outpatient - [address] [id number] 06/08/2024 14:30 EST Office Visit [facility] Cancer Center Radiation Oncology - [address] [phone] Pj Bourne MD [address] [place] [phone] documented as of this encounter Visit Diagnoses Not on filedocumented in this encounter Care Teams Medical Insurance Biller Relationship Specialty Start Date End Date Esther Verma FNP [address] [place] [phone] PCP - General 07/27/22 Pj Bourne MD [address] [place] [phone] Radiation Oncology 10/21/22 documented as of this encounter
--- OUTSIDE RECORDS SUMMARY | 2024-02-17 14:43 | XMS_ITS | Encounter Summary ---
Author Organization [facility] Address [address] [place] [address] Care Team Providers Care Vibratory Pile Driver Name Role Phone Esther Verma Primary Care Provider [phone] Pj Bourne MD Unavailable [phone] Reason for Referral * Cardiology (Routine/Next Available) - New Request Specialty Diagnoses / Procedures Referred By Contac t Referred To Contact Diagnoses Atrial fibrillation, unspecified type (HCC-CMS) Procedures EKG 12-LEAD Taj Lei MD [address] [place] [address] [phone] Referral ID Status Reason Start Date Expiration Date V isits Requested Visits Authorized [id number] New Request 02/08/2024 1 1 Reason for Visit * Reason Comments New Patient Visit * Cardiology (Routine) - Authorization Not Required Specialty Diagnoses / Procedures Referred By Contac t Referred To Contact Cardiology Diagnoses Unspecified atrial fibrillation (HCC-CMS) Esther Verma FNP [address] [facility] [address] [place] [address] [facility] [address] [place] [address] Referral ID Status Reason Start Date Expiration Date Visits Requested Visits Authorized [id number] Authorization Not Required 1 1 Encounter Details Date Type Department Care Team (Late st Contact Info) Description 02/14/2024 13:45 EDT Office Visit [facility] [address] [place] [address] Taj Lei MD [address] [facility] [address] [place] [address] Permanent atrial fibrillation (HCC-CMS) (Primary Dx); Current use of fpc anticoagulation; ACC/AHA stage C heart failure with [...] Taj Lei MD - 02/14/2024 1345 EDT [facility] CARDIOLOGY CONSULT Date of Service: 02/14/24 Patient: Edwige Byers, 1950 Reason for Consult: Atrial fibrillation, unspecified type ([facility]) [I48.91] Referring Provider: Esther Verma ASSESSMENT & [...] Appointment [facility] Radiology CT Outpatient - [address] [phone] 06/08/2024 14:30 EST Office Visit [facility] Radiation Oncology - [address] [address] Pj Bourne MD [address] [place] [address], [address] [place] [phone] documented as of this encounter Procedures Procedure Name Priority Date/Time Associated Diagnosis Comments ECG REPORT - SCANNED 02/14/2024 14:16 EDT EKG 12-LEAD Routine 02/14/2024 13:44 EDT Permanent atrial fibrillation ([facility]) documented in this encounter Results * ECG REPORT - SCANNED (02/14/2024 14:16 EDT) 02/14/2024 14:1 6 EDT Scan 2 Mushroom Farmer PROCEDURE/MINOR [place] GICAL ORDERABLES * EKG 12-LEAD (02/14/2024 13:44 EDT) 02/14/2024 13:4 4 EDT Narrative [facility] 02/14/2024 13:50 EDT ? CVC ? Test Date: ?2024-02-14 Pat Name: ? EDWIGE BYERS ? Department: ? Room: ? Gender: ? Female ? Fixed Wing Pilot: ?? sal CULP: ?1950 ? Requested By: DO VANG Order Number: [id number] ? Adan ALY: ?? TAJ LEI MD ? Measurements Intervals ?Swoope ? Rate: ? 75 ? P: ?0 MT: ? 0 ?QRS: ?73 QRSD: ? 84 [...] Name: EDWIGE BYERS Department: Room: Gender: Female Fixed Wing Pilot: sal : 1950 Requested By: DO VANG Order Number: [id number] Adan MD: TAJ LEI MD Measurements Intervals Swoope Rate: 75 P: 0 MT: 0 QRS: 73 QRSD: 84 T: 182 QT: 410 QTc: 457 Interpretive Statements Atrial fibrillation Nonspecific ST and T wave abnormality No previous ECG available for comparison I reviewed the tracing and have either agreed or edited the findings inthis report. Electronically Signed On 02-14-2024 13:50:03 EDT by TAJ ZAMBRANO. Taj Lei MD CARDIAC ECG ORDERABL ES [facility] documented in this encounter Visit Diagnoses Diagnosis Permanent atrial fibrillation ([facility])- Primary Atrial fibrillation Current use of adjunct faculty for medical terminology anticoagulation Long-term (current) use of anticoagulants ACC/AHA stage C heart failure with preserved ejection fraction (HCC-CMS) Diabetes mellitus type 2, insulin dependent ([facility]) Type II or unspecified type diabetes mellitus [...] daily. added in this encounter Care Teams Vibratory Pile Driver Relationship Specialty Start Date End Date Esther Verma FNP [address] [place] [address] [address] [place] [phone] PCP - General 07/27/22 Pj Bourne MD [address] [place] [address], [address] [place] [phone] Radiation Oncology 10/21/22 documented as of this encounter
--- OUTSIDE RECORDS SUMMARY | 2024-02-17 14:43 | XMS_ITS | Encounter Summary ---
[place] [address] Care Team Providers Care Explosive Operator Bomb Name Role Phone Heath Verma APRN Primary Care Provider [phone] Reason for Referral * Diagnostic Test (Routine) - Closed Specialty Diagnoses / Procedures Referred By Contac t Referred To Contact Diagnoses Pain in both lower legs Procedures SHARYN, legs, multiple levels Heath Verma APRN [address] [place] [address] [facility] Vascular Lab [address] [place] [phone] Referral ID Status Reason Start Date Expiration Date V isits Requested Visits Authorized [id number] Closed Specialty Service Requested 07/07/2021 07/07/2022 1 1 Reason for Visit * Diagnostic Test (Routine) - Closed Specialty Diagnoses / Procedures Referred By Contac t Referred To Contact Vascular Surgery Diagnoses Pain in leg, unspecified BILATERAL LEG PAIN Heath Verma APRN [address] [place] [address] [facility] Vascular Surg [address] [place] [phone] Referral ID Status Reason Start Date Expiration Date V isits Requested Visits Authorized [id number] Closed Test Only 06/19/2021 06/19/2022 1 1 Encounter Details Date Type Department Care Team (Late st Contact Info) Description 07/07/2021 11:00 AM EST Tech [place] [address] [place] Pain in [...] Text Report Department: Vascular Surgery Lab Patient: [id number] (EDWIGE BYERS) CPT: 97399 Referring Physician: HEATH VERMA ?? Phone: Indications: [...] legs documented in this encounter Care Teams Explosive Operator Bomb Relationship Specialty Start Date End Date Heath Verma APRN [address] [place] [address] PCP - General Family Medicine 11/25/20 documented as of this encounter
--- OUTSIDE RECORDS SUMMARY | 2024-02-17 14:43 | XMS_ITS | Encounter Summary ---
[place] [address] Care Team Providers Care Mandrel Maker Name Role Phone Esther Vemra APRN Primary Care Provider [phone] Encounter Details Date Type Department Care Team (Late st Contact Info) Description 05/13/2022 12:05 AM EDT Ancillary [place] [address] Esther Verma APRN [address] [place] [address] Social History Tobacco Use Types Packs/Day Years [...] CT Chest (05/13/2022 12:05 AM EDT) Narrative [facility] - 09/02/2022 11:35 AM EST This exam is auto-finalizing. It's purpose is for storage only. Esther Verma APRN [employer] [facility] ORD ERABLES [facility] [place], [place] documented in this encounter Visit Diagnoses Not on filedocumented in this encounter Care Teams Mandrel Maker Relationship Specialty Start Date End Date Esther Verma APRN [address] [place] [address] PCP - General Family Medicine 11/25/20 documented as of this encounter
--- OUTSIDE RECORDS SUMMARY | 2024-02-17 14:43 | XMS_ITS | Clinical Summary ---
Author Organization [facility] Address [facility] [place] [address] Care Team Providers Care Sailing Officer Name Role Phone Esther Verma APRN Primary Care Provider [phone] Allergies Active Allergy Reactions Criticality Noted Date [...] Noted Date Diagnosed Date Depression 10/01/2014 Hx MT 10/01/2014 Former smoker 10/01/2014 PAF (paroxysmal atrial [...] Documents on File Type Date Recorded Patient Software Controls Engineer Expl anation Advance Directives and Livin g Will 09/16/2010 10:17 AM * Full Code (Latest Code Status on File) Date Activated Date Inactivated Comments 10/01/2014 2:54 PM 10/02/2014 12:13 AM Question Answer Comments Order Status: Initial Order Does patient have decision m aking capacity? Yes, Order is based on Patients wishes. Care Teams Sailing Officer Relationship Specialty Start Date End Date Esther Verma APRN [address] [place] [address] PCP - General Family Medicine 11/25/20
--- OUTSIDE RECORDS SUMMARY | 2024-02-17 14:43 | XMS_ITS | Clinical Summary ---
Author Organization [facility] Address [address] [place] [address] Care Team Providers Care Offset Press Operator Helper Name Role Phone Esther Verma Primary Care Provider [phone] Pj Bourne MD Unavailable [phone] Allergies Active Allergy Reactions Criticality Noted [...] Diagnosed Date Nontoxic multinodular goiter 08/04/2023 Diabetes ([facility]) 05/16/2023 Primary cancer of right upper lobe of lung ([facility]) 07/26/2022 Cancer Staging:Clinical:Stage IA2(cT1b, cN0, cM0) - Signed by Pj Bourne MD on 09/13/2022 Overview: Added automatically from request for surgery [id number] Resolved Problems Problem Noted Date Diagnosed Date Resolved Date Malignant neoplasm of upper lobe, right bronchus or lung (HCC-CMS) 10/18/2022 11/11/2022 Encounters Date Type Department Care Team Description 02/14/2024 13:45 EDT Office Visit [facility] Cardiology Clinic [address] [place] [address] Taj Lei MD Permanent atrial fibrillation (HCC-CMS) (Primary Dx); Current use of fdc anticoagulation; ACC/AHA stage C heart failure with preserved ejection fraction ([facility]); Diabetes mellitus type 2, insulin dependent ([facility]); Essential hypertension 01/25/2024 Lab Requisition [facility] Pathology & Laboratory Medicine - [address] [address] Outr Resulting Lab, Provider 12/17/2023 Telephone [facility] Endocrinology - [address] [id number] Ragini Pérez DO 12/02/2023 10:30 EDT Office Visit [facility] Radiation Oncology - [address] [address] Pj Bourne MD Thyroid nodule (Primary Dx); History of lung cancer 12/02/2023 8:17 EDT - 12/02/2023 23:59 EDT Hospital Encounter [facility] Radiology CT - [address] [address] Primary cancer of right upper lobe of lung ([facility]) Discharge Disposition: Home or Self Care from [...] Info) Description 06/08/2024 13:30 EST Appointment [facility] Radiology CT Outpatient - [address] [address] 06/08/2024 14:30 EST Office Visit [facility] Radiation Oncology - [address] [address] Pj Bourne MD [address] [place] [address], Level [address] [place] [phone] Health Maintenance Due Date Last Done Comments [...] EDT) 02/14/2024 14:1 6 EDT Scan 2 Bead Cutter PROCEDURE/MINOR [place] GICAL ORDERABLES * EKG 12-LEAD (02/14/2024 13:44 EDT) 02/14/2024 13:4 4 EDT Narrative [facility] - 02/14/2024 13:50 EDT ? CVC ? Test Date: ?2024-02-14 Pat Name: ? EDWIGE SEGALCHITO ? Department: ? Room: ? Gender: ? Female ? Fly Raiser Lockstitch: ?? asl : ?1950 ? Requested By: DO VANG Order Number: [id number] ? Reading MD: ?? TAJ LEI MD ? Measurements Intervals ?Wann ? Rate: ? 75 ? P: ?0 NC: ? 0 ?QRS: ?73 QRSD: ? 84 [...] Name: EDWIGE BYERS Department: Room: Gender: Female Fly Raiser Lockstitch: sal : 1950 Requested By: DO VANG Order Number: [id number] Reading MD: TAJ LEI MD Measurements Intervals Wann Rate: 75 P: 0 NC: 0 QRS: 73 QRSD: 84 T: 182 QT: 410 QTc: 457 Interpretive Statements Atrial fibrillation Nonspecific ST and T wave abnormality No previous ECG available for comparison I reviewed the tracing and have either agreed or edited the findings inthis report. Electronically Signed On 02-14-2024 13:50:03 EDT by TAJ ZAMBRANO. Taj Lei MD CARDIAC ECG ORDERABL ES Performing Organization Address City/[facility]/ZIP Co de Phone Number [facility] * (ABNORMAL) PTH INTACT (01/25/2024 10:30 EDT) Intact PTH 104(H) 19 - 88 pg/mL 01/26/2024 8:32 EDT [facility] Blood VENOUS BLOOD / Unknown 01/25/2024 10:30 EDT 01/25/2024 21:59 EDT Provider Outr Resulting Lab CHEMISTRY & BLOOD GAS ORDERABLES Performing Organization Address City/[facility]/ZIP Co de Phone Number [facility] [address] [place] [phone] * CT CHEST WO CONTRAST (12/02/2023 8:35 EDT) Anatomical Region Laterality Modality Chest Computed Tomogra phy 12/02/2023 9:21 EDT Impressions 12/02/2023 9:21 EDT 1. ??Expected post radiation changes in the right upper lobe. 2. ??Multiple stable groundglass lesions within both lungs, continued long-term CT surveillance is needed. 3. ??Additional chronic findings above. [id number] Narrative 12/02/2023 9:[address] CHEST WO [...] the left T4 vertebra. Resulting Agency Comment [id number] Procedure Note Soy Goodman MD - 12/02/2023 [...] is needed. 3. Additional chronic findings above. [id number] Pj Bourne MD IMG CT ORDERABLES from Last 3 Months Care Teams Offset Press Operator Helper Relationship Specialty Start Date End Date Esther Verma FNP [address] [place] [phone] PCP - General 07/27/22 Pj Bourne MD [address] [place] [address] [address] [place] [address] Radiation Oncology 10/21/22
--- OUTSIDE RECORDS SUMMARY | 2024-02-17 14:43 | XMS_ITS | Encounter Summary ---
Author Organization [facility] Address [address] [place] [address] Care Team Providers Care Textbook Associate Name Role Phone Esther Verma Primary Care Provider [phone] Pj Bourne MD Unavailable [phone] Encounter Details Date Type Department Care Team (Late st Contact Info) Description 01/25/2024 Lab Requisition [facility] Pathology & Laboratory Medicine - [address] [address] Outr Resulting Lab, Provider Social History Tobacco [...] Appointment [facility] Rad[facility] CT Outpatient - [address] [address] 06/08/2024 14:30 EST Office Visit [facility] Radiation Oncology - [address] [phone] Pj Bourne MD [address] [place] [phone] documented as of this encounter Procedures Procedure Name Priority Date/Time Associated Diagnosis Comments PTH INTACT Routine 01/25/2024 10:30 EDT documented in this encounter Results * (ABNORMAL) PTH INTACT (01/25/2024 10:30 EDT) Intact PTH 104(H) 19 - 88 pg/mL 01/26/2024 8:32 EDT [facility] Blood VENOUS BLOOD / Unknown 01/25/2024 10:30 EDT 01/25/2024 21:59 EDT Provider Outr Resulting Lab CHEMISTRY & BLOOD GAS ORDERABLES [facility] [address] [place] [address] documented in this encounter Visit Diagnoses Not on filedocumented in this encounter Care Teams Textbook Associate Relationship Specialty Start Date End Date Esther Verma FNP [address] [place] [address] [address] [place] [phone] PCP - General 07/27/22 Pj Bourne MD [address] [place] [phone] Radiation Oncology 10/21/22 documented as of this encounter
--- OUTSIDE RECORDS SUMMARY | 2024-02-17 14:43 | XMS_ITS | Encounter Summary ---
Author Organization [facility] [place] [address] Care Team Providers Care Chicken Boner Name Role Phone Esther Verma APRN Primary Care Provider [phone] Encounter Details Date Type Department Care Team (Late st Contact Info) Description 04/08/2009 Orders [place] [address] Antonio Cox MD [facility] [place] [address] Social History Tobacco Use Types Packs/Day Years [...] (04/08/2009 3:38 PM EDT) Surgical Pathology Report [id number] ? [facility]; A The signing pathologist has (i) examined [...] on filedocumented in this encounter Care Teams Chicken Boner Relationship Specialty Start Date End Date Esther Verma APRN [address] [place] [address] PCP - General Family Medicine 11/25/20 documented as of this encounter
--- OUTSIDE RECORDS SUMMARY | 2024-02-17 14:43 | XMS_ITS | Encounter Summary ---
Author Organization [facility] Address [facility] [place] [address] Care Team Providers Care Automobile Mechanic Apprentice Name Role Phone Esther Verma APRN Primary Care Provider [phone] Encounter Details Date Type Department Care Team (Late st Contact Info) Description 06/16/2009 Orders Only [place] [address] Han Kim MD [facility] [place] [address] Social History Tobacco Use Types Packs/Day Years [...] 9:11 AM EST) Surgical Pathology Report [id number] ? Location: [facility]; [facility]; A The signing pathologist has (i) [...] specimen and special studies, if any. [facility] 06/16/2009 9:11 AM EST Han Kim MD PATHOLOGY/CYTOLOGY ORDERABLES [facility] documented in this encounter Visit Diagnoses Not on filedocumented in this encounter Care Teams Automobile Mechanic Apprentice Relationship Specialty Start Date End Date Esther Verma APRN [address] [place] [address] PCP - General Family Medicine 11/25/20 documented as of this encounter
--- OUTSIDE RECORDS SUMMARY | 2024-02-17 14:43 | XMS_ITS | Encounter Summary ---
Author Organization [facility] [place] [address] Care Team Providers Care Network Operations Specialist Name Role Phone Kamilla Silvestre MD Primary Care Provider Reason for Visit * Reason Comments Skin Check Encounter Details Date Type Department Care Team (Late st Contact Info) Description 02/13/2013 2:15 PM EDT Office Visit Dermatology [facility] [address] [place], [place] [id number] Price Vega MD [address], [place] [address] Psoriasiform dermatitis (Primary Dx) Social History Tobacco [...] disorders documented in this encounter Care Teams Network Operations Specialist Relationship Specialty Start Date End Date Kamilla Silvestre MD [address] [place] [address] PCP - General 02/13/13 11/24/20 documented as of this encounter
--- OUTSIDE RECORDS SUMMARY | 2024-02-17 14:43 | XMS_ITS | Encounter Summary ---
Author Organization [facility] Address [facility] [place] [address] Care Team Providers Care News Department Intern Name Role Phone Kamilla Pierre MD Primary Care Provider [phone] Encounter Details Date Type Department Care Team (Late st Contact Info) Description 10/01/2014 2:40 PM EDT - 10/01/2014 3:44 PM EDT Surgery [employer] [place] [address] Neil Weaver MD [facility] [place] [address] CARDIAC CATHETERIZATION Social History Tobacco Use Types [...] Edwige Davis Patient Age: 63 y.o. Language: [place] Citizen Race: White Ethnicity: Not nor Admit date: 10/01/2014 Discharge date and time: 10/01/2014 Attending Physician: Triston Tomas MD Discharge Physician: Triston Tomas MD Follow-up Recommendations for Providers: 1. reeval for non cardiac causes of CP Inpatient Provider Contact Information: BELINDA Melgoza Armin, MD [phone] Discharge Diagnoses (Hospital Problems) and Secondary Diagnoses (Chronic Problems): Active Hospital Problems Diagnosis ??? Dyslipidemia Lab 07/02/08: TC 179, LDL 105, HDL 35, TG 194 Lab 09/19/08: TC 123, LDL 72, HDL 44, TG 100 ??? Depression ??? Hx SC ??? Former smoker ??? PAF (paroxysmal atrial [...] of Presentation: 63 yo with known Hx SC/ CAD, previous stents had recurrent mid scapular [...] when she still could sleep. Seen at [facility] 10/01/2014 and workup showed a troponin of 0.06 EKG with old inferior Qs and lateral TWI. She was treated with IV MS x 1 and 3 SL NTG then NTG gtt which she feels finally helped and arranged for transfer to [facility]. She was pain free on arrival but needed increased gtt en route. +nausea post MS dose Hospital Course: On admission to [facility], the patient had no complaints [...] appointments: -During 8am-5pm Tuesday through Tuesday call [phone] to speak with a nurse in the cardiology clinic -All other times call [phone] and ask to speak to the solderer assembler documentation analyst. Return to work/ usual actvities: 1 week as tolerated. No lifting more than 10 pounds until then. Nosoaking R wrist until site healed. Driving: No driving for 48 hours after catheterization. Follow up Appointments: PCP: KAMILLA PIERRE MD ; [phone] . Follow up for other causes of back pain. Cardiology; Dr. Lennon as needed. Discharge References/Attachments None Signed: BELINDA Melgoza Pager [phone] DATE: 10/01/2014 documented in this encounter Discharge Instructions * Discharge Instructions* Amee Rainey PA - 10/01/2014 5:39 PM EDT Cardiology Instructions Call your doctor if: Chest pain, dyspnea, pain or swelling in legs occurs. If you have non-emergent questions between now and the time of your follow up appointments: -During 8am-5pm Tuesday through Tuesday call [phone] to speak with a nurse in the cardiology clinic -All other times call [phone] and ask to speak to the solderer assembler documentation analyst. Return to work/ usual actvities: 1 week as tolerated. No lifting more than 10 pounds until then. Nosoaking R wrist until site healed. Driving: No driving for 48 hours after catheterization. Follow up Appointments: PCP: KAMILLA PIERRE MD ; [phone] . Follow up for other causes of [...] Ferny De La Rosa, Cardiology hospitalist Pager [phone]. documented in this encounter H&P Notes * [...] 44, TG 100 ??? Depression ??? Hx SC ??? Former smoker ??? PAF (paroxysmal atrial [...] Illness: HPI 63 yo with known Hx SC/ CAD, previous stents had recurrent mid scapular [...] when she still could sleep. Seen at [facility] 10/01/2014 and workup showed a troponin of 0.06 EKG with old inferior Qs and lateral TWI. She was treated with IV MS x 1 and 3 SL NTG then NTG gtt which she feels finally helped and arranged for transfer to [facility]. She was pain free on arrival but [...] 63 yo wf with known CAD, hx SC, previous BMS (nosebleeds) to RCA and LAD, separate procedures, in 06/24. with recurrent scapular back pain similar to her previous angina. TREATMENT PLAN: Scaplular pain consistent with previous anginal equal though prolonged pain and (now resolved) withnegative cardiac enzymes Echo done with formal read pending [facility] today for definitive diagnosis Other non [...] Procedure Name Priority Date/Time Associated Diagnosis Comments QUARRY MANAGER SCAN 10/02/2014 12:00 AM EDT CARDIAC CATHETERIZATION Routine 10/02/19 15 4:27 PM EDT ECHOCARDIOGRAM TRANSTHORACIC Routine 10/01/2014 2:12 PM EDT ACS (acute coronary syndrome) CARDIAC ENZYMES ([facility]) STAT 10/01/2014 1:46 PM EDT EKG 12-LEAD STAT 10/01/2014 11:39 AM EDT Chest tightness or pressure documented in this encounter Results * SCAN DOC: QUARRY MANAGER (10/02/2014 12:00 AM EDT) Anatomical Region Laterality Modality Other Scanning Provider MEDIA MGR SCAN EXT O RDR/RSLT * CARDIAC CATHETERIZATION (10/01/2014 4:27 PM EDT) Anatomical Region Laterality Modality Other Narrative 10/01/2014 4:54 PM EDT ?[facility] ? Cardiac Catheterization/Intervention Report ? Patient Name: Josuéfrancisdylan, Edwige D. ? Procedure Date: 10/01/2014 ? A #: [id number] ? Primary Physician: Weaver, Neil V ? Case #: [id number] ? File Name: [id number] ? Catheterization Order Number: [id number] ? [facility]' [facility] ? Final Report [place], [place] ? Patient Name: ? Edwige Davis ?ID#: ?[id number] ? : ?1950 ? Procedure Date: ? [...] at Catheterization: ?The patient presented with: non-STEMI. [place] [employer] ?angina class was III. This [...] Procedure Note Neil Weaver MD - 10/01/2014 [facility] Cardiac Catheterization/Intervention Report Patient Name: Edwige Davis Procedure Date: 10/01/2014 A #: [id number] Primary Physician: Neil Weaver V Case #: [id number] File Name: [id number] Catheterization Order Number: [id number] [facility] FinalReport [place], [place] Patient Name: Edwige Davis ID#:[id number] :1950 Procedure Date: October 01, 2014 Case [...] at Catheterization: The patient presented with: non-STEMI. [facility]. This [...] * Echocardiogram Transthoracic(Leb) (10/01/2014 2:12 PM EDT) [facility] EF 70 HEARTTradingScreen SYSTEM Anatomical Region Laterality Modality Other 10/01/2014 Narrative 10/01/2014 2:56 PM EDT Procedure: ? Transthoracic Echocardiogram Patient: ? BOURGEOIS EDWIGE D ? (Age): 1950(63) Med Rec#: ?[id number] ? Sex: ?F ? Site Loc: ?[facility] ? Ht / Wt: ??160(cm)/85(kg) Pt. Loc: ? Adult Floor ?BSA: ?1.94 Study Date: ?10/01/2014 ? Pt. Type: Inpatient Tape: ? Referring: Triston Tomas ([id number]) Wholesale Account Executive: Francois Herrera Diagnosis:CPT Code(s): ??Echo Full (14831), ??Spectral Doppler (41801), Color Doppler (06560), Indication(s): ??CAD, H/O Rhythm: Sinus HR ?BP [...] ? Mid-Inferior ?Normal ? Mid-Inferoseptal ?Normal ? [place]-Septal ? Normal ? [place]-Anterior ? Normal ? [place]-Lateral ?Normal ? [place]-Inferior ? Normal ? [place]-Tip ?Normal ? Chambers ?Value ?Units (Range) ? [...] 10/01/2014 14:55:47 Images reviewed and interpretation verified [facility] Procedure Note Han Andrade MD - 10/01/2014 Procedure: Transthoracic Echocardiogram Patient: MODESTA Early DOB(Age): 1950(63) Med Rec#: [id number] Sex: F Site Loc: [facility] Ht / Wt: 160(cm)/85(kg) Pt. Loc: Adult Floor BSA: 1.94 Study Date: 10/01/2014 Pt. Type: Inpatient Tape: Referring: Tristno Tomas ([id number]) Wholesale Account Executive: Francois Herrera Diagnosis:CPT Code(s): Echo Full (44049), Spectral Doppler (54401), Color Doppler (39528), Indication(s): CAD, H/O Rhythm: Sinus HR BP [...] change in the inferior vena cava dimension. [facility] Two[facility] echo, spectral Doppler and color Doppler performed. Wall Motion: Segment Name Rest Base-Anteroseptal Normal Base-Anterior Normal Base-Anterolateral Normal Base-Posterolateral Normal Base-Inferior Normal Base-Inferoseptal Normal Mid-Anteroseptal Normal Mid-Anterior Normal Mid-Anterolateral Normal Mid-Posterolateral Normal Mid-Inferior Normal Mid-Inferoseptal Normal [place]-Septal Normal [place]-Anterior Normal [place]-Lateral Normal [place]-Inferior Normal [place]-Tip Normal Chambers Value Units (Range) IVSd 2D [...] 10/01/2014 14:55:47 Images reviewed and interpretation verified [facility] Triston Tomas MD ECHO ORDERABLES * Cardiac Enzymes (10/01/2014 1:46 PM EDT) Troponin-T <0.03 <=0.03 ng/mL [employer] Comment: 0.03 ng/mL: Represents the 99th percentile upper reference limit for normals. >0.03 ng/mL: Elevated cardiac troponin T level indicative of myocardial damage. Diagnosis of acute, evolving or recent SC requires a typical rise and gradual fall [...] consensus document of the Joint Society of Cardiology/[place] College of Cardiology Committee for the redefinition of myocardial infarction. ??Journal of the [place] College of Cardiology 2000; 36: 959-969] CK, Total 96 0 - 160 unit/L [employer] Blood specimen (specimen) 10/01/2014 1:46 PM EDT [...] (Bezet) 466 ms MUSE SYSTEM Calculated P [place] 48 degrees MUSE SYSTEM Calculated R [place] 37 degrees MUSE SYSTEM Calculated T [place] 139 degrees MUSE SYSTEM INTERPRETATION Normal sinus [...] MD) documented in this encounter Care Teams News Department Intern Relationship Specialty Start Date End Date Kamilla Pierre MD [address] [place] [address] PCP - General 02/13/13 11/24/20 documented as of this encounter
--- OUTSIDE RECORDS SUMMARY | 2024-02-17 14:43 | XMS_ITS | Encounter Summary ---
Author Organization [facility] Address [address] [place] [address] Care Team Providers Care Nutrition Faculty Member Name Role Phone Esther Verma Primary Care Provider Pj Bourne MD Unavailable [phone] Encounter Details Date Type Department Care Team (Late st Contact Info) Description 08/29/2023 11:55 EST Phlebotomy Only [facility] - Outpatient Phlebotomy Drawing [address] [place] [address] Lab, [facility] Nontoxic multinodular goiter Social History [...] st Contact Info) Description 06/08/2024 13:30 EST [facility] Radiology CT Outpatient - Main [place] [address] [place] [address] 06/08/2024 14:30 EST Office Visit [facility] Radiation Oncology - [address] [address] Pj Bourne MD [address] [facility] [place], Level 2 [place] [address] documented as of this encounter [...] 2.8 - 5.3 pg/mL 08/29/2023 21:07 EST [facility] Blood VENOUS BLOOD / Unknown Venipuncture / Unknown 08/29/2023 12:10 EST 08/29/2023 12:27 EST Ragini Pérez DO CHEMISTRY & BLOOD GA S ORDERABLES [facility] [address] [place] [address] * THYROTROPIN RECEPTOR ANTIBODY (08/29/2023 12:10 EST) Pathologist [facility] Thyrotropin Receptor Ab, S <1.10 0.00 - 1.75 IU/L 08/30/2023 16:43 EST [facility] [employer] Comment: ADDITIONAL INFORMATION At a decision limit of 1.75 IU/L, this assay has 97% sensitivity and 99% specificity for detection of Graves' disease. In healthy individuals and in patients with thyroid disease without diagnosis of Graves' disease, the upper limit of anti-TSHR values are 1.22 IU/L and 1.58 IU/L, respectively (97.5th percentiles). Test Performed by: [facility] [place] [address] Automotive Engineering Technician: Abel Cloud M.D. Ph.D.; CLIA# [id number] Blood VENOUS BLOOD / Unknown Venipuncture / Unknown 08/29/2023 12:10 EST 08/29/2023 12:27 EST Cl[employer] & BLOOD [employer] S ORDERABLES Performing Organization Address [facility] Co de Phone Number [facility] [address] [place] [address] * THYROID-STIMULATING IMMUNOGLOBULIN (TSI), SERUM (08/29/2023 12:10 EST) Pathologist [facility] Thyroid-Stimulati ng Immunoglobin, S <1.0 <=1.3 TSI index 08/31/2023 17:15 EST [facility] [employer] Comment: Test Performed by: [facility] [address] Automotive Engineering Technician: Abel Cloud M.D. Ph.D.; CLIA# [id number] Blood VENOUS BLOOD / Unknown Venipuncture / Unknown 08/29/2023 12:10 EST 08/29/2023 12:27 EST Clctin & BLOOD Go[employer] S ORDERABLES [facility] [address] [place] [address] * (ABNORMAL) THYROGLOBULIN, TUMOR MARKER, S (08/29/2023 12:10 EST) Thyroglobulin Antibody, S <1.8 <1.8 IU/mL 08/30/2023 16:29 [facility] Thyroglobulin, Tumor Marker 25(H) ng/mL 08/30/2023 16:29 [facility] Comment: REFERENCE VALUE Athyrotic <0.1 Intact Thyroid <=33 Thyroglobulin Interpretation SEE NOTE 08/30/2023 16:29 [facility] Comment: Thyroglobulin (Tg) levels must be interpreted [...] testing methods are immunoenzymatic assays manufactured by [employer] and performed on the [employer] DXI 800. Values obtained from different assay methods or kits may be different and cannot be used interchangeably. The results cannot be interpreted as absolute evidence for the presence or absence of malignant disease. Test Performed by: [facility] [address] [place] [address] Automotive Engineering Technician: Abel Cloud M.D. Ph.D.; CLIA# [id number] Blood VENOUS BLOOD / Unknown Venipuncture / Unknown 08/29/2023 12:10 EST 08/29/2023 12:27 EST Stephania M Tammy CHEMISTRY & BLOOD GAS ORDERABLES [facility] [address] [place] [address] * T4 FREE (08/29/2023 12:10 EST) T4, Free 1.4 0.8 - 2.2 ng/dL 08/29/2023 13:16 EST [facility] Blood VENOUS BLOOD / Unknown Venipuncture / Unknown 08/29/2023 12:10 EST 08/29/2023 12:26 EST [facility] CHEMI[facility]Y & BLOOD GAS ORDERABLES Performing Organization Address City/[facility] Co de Phone Number [facility] [address] [place] [address] * TSH (08/29/2023 12:10 EST) TSH 1.59 0.47 - 4.68 mIU/L 08/29/2023 13:30 EST [facility] Blood VENOUS BLOOD / Unknown Venipuncture / Unknown 08/29/2023 12:10 EST 08/29/2023 12:26 EST Narrative [facility] - 08/29/2023 13:30 EST The results of this assay can be falsely lowered due to the consumption of Biotin. Stephania Munoz DO CHEMISTRY & BLOOD GAS ORDERABLES Performing Organization Address City/[facility]/ZIP Co de Phone Number [facility] [address] [place] [address] documented in this encounter Visit Diagnoses Diagnosis Nontoxic multinodular goiter documented in this encounter Care Teams Nutrition Faculty Member Relationship Specialty Start Date End Date Esther Verma FNP [address] [place] [phone] PCP - General 07/27/22 Pj Bourne MD 111 [facility], [facility] [address] [place] [phone] Radiation Oncology 10/21/22 documented as of this encounter
--- OUTSIDE RECORDS SUMMARY | 2024-02-17 14:43 | XMS_ITS | Encounter Summary ---
[place] [address] Care Team Providers Care Waiver Analyst Name Role Phone Esther Verma APRN Primary Care Provider [phone] Encounter Details Date Type Department Care Team [...] on filedocumented in this encounter Care Teams Waiver Analyst Relationship Specialty Start Date End Date Esther Verma APRN [address] [place] [address] PCP - General Family Medicine 11/25/20 documented as of this encounter
--- OUTSIDE RECORDS SUMMARY | 2024-02-17 14:43 | XMS_ITS | Encounter Summary ---
Author Organization 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 Referral ID Status Reason Start Date Expiration Date Visits Requested Visits Authorized [id number] Authorization Not Required 3 1 1 Encounter Details Date Type Department Care Team (Latest Contact Info) Description 12/02/2023 8:17 EDT - 12/02/2023 23:59 EDT Hospital [facility] Radiology CT - Main [address] [address] Primary cancer of right upper lobe of [...] 06/08/2024 13:30 EST Appointment [facility] Radiology CT Outpatient - [address] [address] 06/08/2024 14:30 EST Office Visit [facility] Radiation Oncology - [address] [phone] Pj Bourne MD 111 [facility], Level [address] [place] [address] documented as of this encounter Procedures Procedure [...] is needed. 3. ??Additional chronic findings above. [id number] Narrative 12/02/2023 9:[address] CHEST WO [...] the left T4 vertebra. Resulting Agency Comment [id number] Procedure Note Soy Goodman MD - 12/02/2023 [...] is needed. 3. Additional chronic findings above. 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
--- OUTSIDE RECORDS SUMMARY | 2024-02-17 14:43 | XMS_ITS | Encounter Summary ---
Author Organization [facility] Address [facility] [place] [address] Care Team Providers Care Flooring Mechanic Name Role Phone Esther Verma APRN Primary Care Provider [phone] Reason for Visit * Reason Comments Skin Check * Consultation (Routine) - Closed Specialty Diagnoses / Procedures Referred By Chau car Referred To Contact Dermatology Diagnoses Psoriasis, unspecified Disorder of the skin and subcutaneous tissue, unspecified Psoriasis/skin lesion on nose Procedures Consult Esther Verma APRN [address] [place] [address] Price Vega MD [address] [place] [address], [facility] [place] [place] [address] Referral ID Status Reason Start Date Expiration Date V isits Requested Visits Authorized [id number] Closed Consult, Test & Treat PCP Updated and/or Approved 08/21/2020 08/21/2021 12 12 Encounter Details Date Type Department Care Team (Late st Contact Info) Description 11/25/2020 8:45 AM EDT Office Visit Dermatology at [address] [phone] Price Vega MD [address] [place] [address], [facility] [place] [address] Rosacea; Psoriasis Social History Tobacco [...] is able to control with topicals and ykhy-exe-laqitso shampoos. Physical examination reveals a pleasant 69-year-old [...] psoriasis 1. Controlled to patient satisfaction with fdym-ybe-lhoilfq topicals and shampoos. CC: Esther Verma APRN documented in this encounter Plan of Treatment Not on file documented as of this encounter Visit Diagnoses Diagnosis Rosacea Psoriasis Other psoriasis documented in this encounter Care Teams Flooring Mechanic Relationship Specialty Start Date End Date Esther Verma APRN [address] [place] [address] PCP - General Family Medicine 11/25/20 documented as of this encounter
--- OUTSIDE RECORDS SUMMARY | 2024-02-17 14:43 | XMS_ITS | Encounter Summary ---
Author Organization [facility] [place] [address] Care Team Providers Care Psych Tech Name Role Phone Esther Verma APRN Primary Care Provider [phone] Encounter Details Date Type Department Care Team (Late st Contact Info) Description 06/19/2023 External [place] [phone] Social History Tobacco Use Types Packs/Day Years [...] on filedocumented in this encounter Care Teams Psych Tech Relationship Specialty Start Date End Date Esther Verma APRN [address] [place] [address] PCP - General Family Medicine 11/25/20 documented as of this encounter
--- OUTSIDE RECORDS SUMMARY | 2024-02-17 14:44 | XMS_ITS | Encounter Summary ---
Author Organization [facility] Address [address] [place] [address] Care Team Providers Care Infantry Operations Specialist Name Role Phone Esther Verma Primary Care Provider [phone] Pj Bourne MD Unavailable [phone] Encounter Details Date Type Department Care Team (Latest Contact Info) Description 11/10/2022 12:58 EDT - 11/10/2022 23:59 EDT Hospital Encounter [facility] Radiation Oncology - [address] [address] [facility] Discharge Disposition: Home or Self [...] Info) Description 06/08/2024 13:30 EST Appointment [facility] Radiology CT Outpatient - [address] [address] 06/08/2024 14:30 EST Office Visit [facility] Radiation Oncology - [address] [phone] Pj Bourne MD [address] [place] [phone] documented as of this encounter Visit Diagnoses Not on filedocumented in this encounter Care Teams Infantry Operations Specialist Relationship Specialty Start Date End Date Esther Verma FNP [address] [place] [phone] PCP - General 07/27/22 Pj Bourne MD [address] [place] [phone] Radiation Oncology 10/21/22 documented as of this encounter
--- OUTSIDE RECORDS SUMMARY | 2024-02-17 14:44 | XMS_ITS | Encounter Summary ---
Author Organization [facility] Address [address] [place] [address] Care Team Providers Care Director Camp Name Role Phone BayronEsther EDWARD Primary Care Provider [phone] Pj Bourne MD Unavailable [phone] Reason for Referral * (Routine/Next Available) - New Request Specialty Diagnoses / Procedures Referred By Chau car Referred To Contact Diagnoses Malignant neoplasm of upper lobe, right bronchus or lung (HCC-CMS) Procedures CT SIM EXAM Pj Bourne MD [address] [place] [phone] [facility] Referral ID Status Reason Start Date Expiration Date V isits Requested Visits Authorized [id number] New Request 10/18/2022 1 1 Reason for Visit * (Routine/Next Available) - New Request Specialty Diagnoses / Procedures Referred By Chau car Referred To Contact Diagnoses Malignant neoplasm of upper lobe, right bronchus or lung (HCC-CMS) Procedures CT SIM EXAM Pj Bourne MD [address] [place] [phone] [facility] Referral ID Status Reason Start Date Expiration Date V isits Requested Visits Authorized [id number] New Request 10/18/2022 1 1 Encounter Details Date Type Department Care Team (Latest Contact Info) Description 10/22/2022 7:28 EDT Hospital Encounter [facility] Radiation Oncology - Main [address] [address] Malignant neoplasm of upper lobe, right bronchus [...] [facility] Radiology CT Outpatient - [address] [phone] 06/08/2024 14:30 EST Office Visit [facility] Radiation Oncology - [address] [phone] Pj Bourne MD [address] [place] [address] [address] [place] [phone] documented as of this encounter Procedures Procedure [...] (HCC-CMS) documented in this encounter Care Teams Director Camp Relationship Specialty Start Date End Date Esther Verma FNP 26 [facility] [address] [place] [address] PCP - General 07/27/22 Pj Bourne MD [address] [place] [address] [address] [place] [phone] Radiation Oncology 10/21/22 documented as of this encounter
--- OUTSIDE RECORDS SUMMARY | 2024-02-17 14:44 | XMS_ITS | Encounter Summary ---
Author Organization [facility] Address [address] [place] [address] Care Team Providers Care Child Protective Services Social Worker Name Role Phone Esther Verma Primary Care Provider [phone] Pj Bourne MD Unavailable [phone] Reason for Referral * Radiology Services (Routine/Next Available) - Authorization Not Required Specialty Diagnoses / Procedures Referred By Chau t Referred To Contact Diagnoses Nontoxic multinodular goiter Procedures US GUIDED NECK FNA Ragini Pérez DO [address] [employer] [address] [place] [phone] [facility] Referral ID Status Reason Start Date Expiration Date Visits Requested Visits Authorized [id number] Authorization Not Required 08/30/2023 1 1 Reason for Visit * Reason Comments Thyroid Problem * Referral (Routine) - Authorization Not Required Specialty Diagnoses / Procedures [facility] Referred To Contact Urology Diagnoses Thyroid nodule [facility] [place] Endocrinology [address] [place] [address] Referral ID Status Reason Start Date Expiration Date Visits Requested Visits Authorized [id number] Authorization Not Required 1 1 Encounter Details Date Type Department Care Team (Late st Contact Info) Description 08/29/2023 10:00 EST Office Visit [facility] [address] [place] [address] Ragini Pérez DO [address] [place] [address] Nontoxic multinodular goiter (Primary Dx) [...] a year ago, with radiation tx at [facility], five txs, the last tx about five months ago, presents to the clinic for evaluation and treatment recommendations for possible thyroid nodules seen on CT. Pt states she may have had a thyroid US performed at [facility] in [facility] with [facility] about 2 months ago. She says [...] (2 points) Echogenicity: Hypoechoic (2 points) Shape: Eqkrs-pwbe-htam (0 points) Margin: Smooth (0 points) Echogenic Foci: No echogenic foci (0 points) TI-RADS category: TR 4 (4-6 points) Nodule 2 Location: Mid-portion of the right thyroid lobe. Size: 1.1 x 0.7 x 0.6 cm. Composition: Almost completely solid (2 points) Echogenicity: Hypoechoic (2 points) Shape: Uyizh-dgvm-hqas (0 points) Margin: Smooth (0 points) Echogenic Foci: No echogenic foci (0 points) TI-RADS category: TR 4 (4-6 points) Nodule 3 Location: Lower pole of the left thyroid lobe. Size: 1.4 x 1.3 x 1.1 cm. Composition: Solid (2 points) Echogenicity: Very hypoechoic (3 points) Shape: Zqghtf-pwfn-hqeb (3 points) Margin: Ill-defined (0 points) Echogenic Foci: Macrocalcifications (1 point) TI-RADS category: TR 5 (7+ points) Nodule 4 Location: Upper pole of the left thyroid lobe. Size: 0.7 x 0.4 x 0.3 cm. Composition: Solid (2 points) Echogenicity: Hypoechoic (2 points) Shape: Ojpmk-ysqe-wwjh (0 points) Margin: Smooth (0 points) Echogenic [...] Eliquis. Pt would like to go to [facility] if possible, but states she does not want to go to [facility]. Diagnoses and all orders for this [...] [facility]ointment [facility] Outpatient - [address] [address] 06/08/2024 14:30 EST Office Visit [facility] Center Radiation Oncology - [facility] [address] [place], [place] [address] Pj Bourne MD 111 [facility], [facility], Level [address] [place] [address] documented as of this encounter Results * US GUIDED NECK FNA (10/13/2023 15:08 EDT) Anatomical Region Laterality Modality Neck Ultrasound 10/16/2023 19:3 5 EDT Impressions 10/16/2023 19:35 EDT Technically difficult biopsy of the 1.4 cm TI-RADS 5 nodule in the deep inferior aspect of the left thyroid lobe. ??Adequate cellular material for diagnosis was not obtained. [id number] Narrative 10/16/2023 19:35 EDT US GUIDED NECK [...] Adequate cellular material fordiagnosis was not obtained. [id number] Ragini Pérez DO IMG US ORDERABLES * T3 FREE (08/29/2023 12:10 EST) T3, Free 4.5 2.8 - 5.3 pg/mL 08/29/2023 21:07 EST [facility] Blood VENOUS BLOOD / Unknown Venipuncture / Unknown 08/29/2023 12:10 EST 08/29/2023 12:27 EST [facility] CHEMISTRY & BLOOD GA S ORDERABLES [facility] [address] [place] [address] * THYROTROPIN RECEPTOR ANTIBODY (08/29/2023 12:10 EST) Thyrotropin Receptor Ab, S <1.10 0.00 - 1.75 IU/L 08/30/2023 16:43 EST [facility] [employer] Comment: ADDITIONAL INFORMATION At a decision limit of 1.75 IU/L, this assay has 97% sensitivity and 99% specificity for detection of Graves' disease. In healthy individuals and in patients with thyroid disease without diagnosis of Graves' disease, the upper limit of anti-TSHR values are 1.22 IU/L and 1.58 IU/L, respectively (97.5th percentiles). Test Performed by: [facility] [place] [address] Occupational Therapist'S Assistant: Abel Cloud M.D. Ph.D.; CLIA# [id number] Blood VENOUS BLOOD / Unknown Venipuncture / Unknown 08/29/2023 12:10 EST 08/29/2023 12:27 EST Ragini Pérez CHEMISTRY & BLOOD MA S ORDERABLES Performing Organization Address [facility] de Phone Number [facility] [address] [place] [address] * THYROID-STIMULATING IMMUNOGLOBULIN (TSI), SERUM (08/29/2023 12:10 EST) Thyroid-Stimulati ng Immunoglobin, S <1.0 <=1.3 TSI index 08/31/2023 17:15 EST [facility] [employer] Comment: Test Performed by: [facility] [place] [address] Occupational Therapist'S Assistant: Abel Cloud M.D. Ph.D.; CLIA# [id number] Blood VENOUS BLOOD / Unknown Venipuncture / Unknown 08/29/2023 12:10 EST 08/29/2023 12:27 EST Ragini Pérez DO CHEMISTRY & BLOOD MA S ORDERABLES Performing Organization Address [facility] Co de Phone Number [facility] [address] [place] [address] documented in this encounter Visit Diagnoses Diagnosis [...] 08/29/2023 documented in this encounter Care Teams Child Protective Services Social Worker Relationship Specialty Start Date End Date Esther Verma FNP [address] [place] [phone] PCP - General 07/27/22 Pj Bourne MD [address] [place] [address], [facility] [address] [place] [address] Radiation Oncology 10/21/22 documented as of this encounter
--- OUTSIDE RECORDS SUMMARY | 2024-02-17 14:44 | XMS_ITS | Encounter Summary ---
Author Organization [facility] Address [address] [place] [address] Care Team Providers Care Dry Pan Feeder Name Role Phone Esther Verma Primary Care Provider [phone] Pj Bourne MD Unavailable [phone] Reason for Referral * Radiology Services (Routine/Next Available) - Authorization Not Required Specialty Diagnoses / Procedures Referred By Contac t Referred To Contact Diagnoses Thyroid nodule Procedures US SUBSPECIALTY RADIOLOGY CONSULT NEURO Stephania Munoz DO [address] [place] [phone] [facility] Referral ID Status Reason Start Date Expiration Date Visits Requested Visits Authorized [id number] Authorization Not Required 3 1 1 Reason for Visit * Radiology Services (Routine/Next Available) - Authorization Not Required Specialty Diagnoses / Procedures Referred By Contdakotah car Referred To Contact Diagnoses Thyroid nodule Procedures US SUBSPECIALTY RADIOLOGY CONSULT NEURO Stephania Munoz DO [address] [place] [phone] [facility] Referral ID Status Reason Start Date Expiration Date Visits Requested Visits Authorized [id number] Authorization Not Required 3 1 1 Encounter Details Date Type Department Care Team (Latest Contact Info) Description 05/16/2023 8:47 EDT - 05/16/2023 12:59 EDT Hospital Encounter [facility] [place] [address] Thyroid nodule Discharge Disposition: Home or Self [...] Description 06/08/2024 13:30 EST Appointment [facility] Radiology CT Outpatient - [address] [id number] 06/08/2024 14:30 EST Office Visit [facility] Radiation Oncology - [address] [phone] Pj Bourne MD [address] [place] [address], Level 2 [place] [phone] documented as of this encounter Procedures Procedure [...] Committee. J Am Reji Radiol. 2017 November;14(5):587-595 [id number] Narrative 05/16/2023 8:53 EDT ULTRASOUND - RADIOLOGY CONSULTATION EXAM: Thyroid Ultrasound performed at outside facility on 01/17/2023. ORIGINAL PATIENT NAME: Edwige Davis PATIENT DATE OF : 1950 ORDERING PROVIDER: Stephania Munoz DO Radiology Consultation interpretation performed at [facility] on 05/13/2023. HISTORY/ REASON [...] (2 points) ?Echogenicity: ??Hypoechoic (2 points) ?Shape: Crelz-jiyc-qpaa (0 points) ?Margin: ??Smooth (0 points) ?Echogenic Foci: ??No echogenic foci (0 points) ?TI-RADS category: TR 4 (4-6 points) ? Nodule 2 ?Location: Mid-portion of the right thyroid lobe. ?Size: 1.1 x 0.7 x 0.6 cm. ?Composition: ??Almost completely solid (2 points) ?Echogenicity: ??Hypoechoic (2 points) ?Shape: Fpedv-qfna-fkzq (0 points) ?Margin: ??Smooth (0 points) ?Echogenic Foci: ??No echogenic foci (0 points) ?TI-RADS category: TR 4 (4-6 points) ? Nodule 3 ?Location: Lower pole of the left thyroid lobe. ?Size: 1.4 x 1.3 x 1.1 cm. ?Composition: ??Solid (2 points) ?Echogenicity: ??Very hypoechoic (3 points) ?Shape: Kdzljt-tkfw-xnsh (3 points) ?Margin: ??Ill-defined (0 points) ?Echogenic Foci: ??Macrocalcifications (1 point) ?TI-RADS category: TR 5 (7+ points) ? Nodule 4 ?Location: Upper pole of the left thyroid lobe. ?Size: 0.7 x 0.4 x 0.3 cm. ?Composition: ??Solid (2 points) ?Echogenicity: ??Hypoechoic (2 points) ?Shape: Ftzmn-btnw-gmsl (0 points) ?Margin: ??Smooth (0 points) ?Echogenic Foci: ??No echogenic foci (0 points) ?TI-RADS category: TR 4 (4-6 points) Procedure Note Marcus Garcia MD - 05/16/2023 ULTRASOUND - RADIOLOGY CONSULTATION EXAM: Thyroid Ultrasound performed at outside facility on 01/17/2023. ORIGINAL PATIENT NAME: Edwige Davis PATIENT DATE OF : 1950 ORDERING PROVIDER: Stephania Munoz DO Radiology Consultation interpretation performed at [facility] on 05/13/2023. HISTORY/ REASON [...] (2 points) Echogenicity: Hypoechoic (2 points) Shape: Erofv-glwq-oxfn (0 points) Margin: Smooth (0 points) Echogenic Foci: No echogenic foci (0 points) TI-RADS category: TR 4 (4-6 points) Nodule 2 Location: Mid-portion of the right thyroid lobe. Size: 1.1 x 0.7 x 0.6 cm. Composition: Almost completely solid (2 points) Echogenicity: Hypoechoic (2 points) Shape: Ddhxc-ogeq-icqr (0 points) Margin: Smooth (0 points) Echogenic Foci: No echogenic foci (0 points) TI-RADS category: TR 4 (4-6 points) Nodule 3 Location: Lower pole of the left thyroid lobe. Size: 1.4 x 1.3 x 1.1 cm. Composition: Solid (2 points) Echogenicity: Very hypoechoic (3 points) Shape: Lgsjse-igcd-gszh (3 points) Margin: Ill-defined (0 points) Echogenic Foci: Macrocalcifications (1 point) TI-RADS category: TR 5 (7+ points) Nodule 4 Location: Upper pole of the left thyroid lobe. Size: 0.7 x 0.4 x 0.3 cm. Composition: Solid (2 points) Echogenicity: Hypoechoic (2 points) Shape: Jfqbo-aorz-mbdw (0 points) Margin: Smooth (0 points) Echogenic [...] TI-RADSCommittee. J Am Reji Radiol. 2017 November;14(5):587-595 [id number] Stephania Munoz DO [facility] [place] ORDERABLES documented in this encounter Visit Diagnoses Diagnosis Thyroid nodule Nontoxic uninodular goiter documented in this encounter Care Teams Dry Pan Feeder Relationship Specialty Start Date End Date Esther Verma FNP [address] [place] [address] [address] [place] [phone] PCP - General 07/27/22 Pj Bourne MD [address] [place] [address], [address] [place] [address] Radiation Oncology 10/21/22 documented as of this encounter
--- OUTSIDE RECORDS SUMMARY | 2024-02-17 14:44 | XMS_ITS | Encounter Summary ---
Author Organization [facility] Address [address] [place] [address] Care Team Providers Care Guard Driver Name Role Phone Erinn Vermay EDWARD Primary Care Provider [phone] Pj Bourne MD Unavailable [phone] Reason for Referral * Radiology Services (Routine/Next Available) - Authorization Not Required Specialty Diagnoses / Procedures Referred By Chau car Referred To Contact Diagnoses 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-CMS) Procedures CT CHEST WO CONTRAST Pj Bourne MD [address] [place] [phone] [facility] Referral ID Status Reason Start Date Expiration Date Visits Requested Visits Authorized [id number] Authorization Not Required 11/11/2022 1 1 Reason for Visit * Radiology Services (Routine/Next Available) - Authorization Not Required Specialty Diagnoses / Procedures Referred By Chau car Referred To Contact Diagnoses 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-CMS) Procedures CT CHEST WO CONTRAST Pj Bourne MD [address] [place] [phone] [facility] Referral ID Status Reason Start Date Expiration Date Visits Requested Visits Authorized [id number] Authorization Not Required 11/11/2022 1 1 Encounter Details Date Type Department Care Team (Latest Contact Info) Description 05/16/2023 13:00 EDT - 05/16/2023 23:59 EDT Hospital Encounter [facility] Radiology CT - Main [place] [address] [place] [address] Primary cancer of right upper lobe of [...] Contact Info) Description 06/08/2024 13:30 EST Appointment [facility] Radiology CT Outpatient - [address] [id number] 06/08/2024 14:30 EST Office Visit [facility] Radiation Oncology - [address] [phone] Pj Bourne MD [address] [place] [address] [address] 2 [place] [address] documented as of this encounter [...] left lobe of thyroid with calcifications, unchanged. [id number] Narrative 05/16/2023 14:[address] CHEST WO [...] of left lobe of thyroid with calcifications,unchanged. [id number] Pj Bourne MD IMG CT ORDERABLES documented in this encounter Visit Diagnoses Diagnosis 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-CMS) documented in this encounter Care Teams Guard Driver Relationship Specialty Start Date End Date Esther Verma FNP [address] [facility] [address] [place] [phone] PCP - General 07/27/22 Pj Bourne MD 111 [facility], [facility] [address] [place] [address] Radiation Oncology 10/21/22 documented as of this encounter
--- OUTSIDE RECORDS SUMMARY | 2024-02-17 14:44 | XMS_ITS | Encounter Summary ---
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-CMS) Procedures CT CHEST WO CONTRAST CT CHEST WO CONTRAST Cleve Farmer MD [address] [place] [phone] [facility] Referral ID Status Reason Start Date Expiration Date Visits Requested Visits Authorized [id number] Authorization Not Required 3 1 1 Reason for Visit * Reason Comments Lung Cancer Follow up Encounter Details Date Type Department Care Team (Late st Contact Info) Description 05/16/2023 15:30 EDT Office Visit [facility] Radiation Oncology - [address] [phone] Cleve Farmer MD [address] [place] [phone] Primary cancer of right upper lobe [...] Description 06/08/2024 13:30 EST Appointment [facility] Radiology CT Outpatient - [address] [id number] 06/08/2024 14:30 EST Office Visit [facility] Radiation Oncology - [address] [phone] Cleve Farmer MD [address] [place] [address], [facility], Level [address] [place] [phone] documented as of this encounter Results * CT CHEST WO CONTRAST (12/02/2023 8:35 EDT) Anatomical Region Laterality Modality Chest Computed Tomogra phy 12/02/2023 9:21 EDT Impressions 12/02/2023 9:21 EDT 1. ??Expected post radiation changes in the right upper lobe. 2. ??Multiple stable groundglass lesions within both lungs, continued long-term CT surveillance is needed. 3. ??Additional chronic findings above. [id number] Narrative 12/02/2023 9:[address] CHEST WO [...] the left T4 vertebra. Resulting Agency Comment [id number] Procedure Note Soy Goodman MD - 12/02/2023 [...] is needed. 3. Additional chronic findings above. [id number] Cleve Farmer MD IMG CT ORDERABLES documented in this encounter Visit Diagnoses Diagnosis 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-CMS)- Primary History of lung cancer Personal history of malignant neoplasm of bronchus and lung 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-CMS) documented in this encounter Care Teams Civil Service Clerk Relationship Specialty Start Date End Date Esther Verma FNP 26 [facility] [address] [place] [phone] PCP - General 07/27/22 Cleve Farmer MD [address] [place] [address], [facility] 2 [place] [phone] Radiation Oncology 10/21/22 documented as of this encounter
--- OUTSIDE RECORDS SUMMARY | 2024-02-17 14:44 | XMS_ITS | Encounter Summary ---
Author Organization [facility] Address [address] [place] [address] Care Team Providers Care Innovations Paraprofessional Name Role Phone Esther Verma EDWARD Primary Care Provider [phone] Reason for Referral * Radiology Services (Routine/Next Available) - Authorization Not Required Specialty Diagnoses / Procedures Referred By Contac t Referred To Contact Diagnoses Lung nodule Procedures IR BIOPSY Price Delong MD [facility] [address] [phone] [facility] Referral ID Status Reason Start Date Expiration Date Visits Requested Visits Authorized [id number] Authorization Not Required 08/02/2022 1 1 Reason for Visit * Radiology Services (Routine/Next Available) - Authorization Not Required Specialty Diagnoses / Procedures Referred By Contac t Referred To Contact Diagnoses Lung nodule Procedures IR BIOPSY Price Delong MD [facility] [address] [address] [facility] Referral ID Status Reason Start Date Expiration Date Visits Requested Visits Authorized [id number] Authorization Not Required 08/02/2022 1 1 Encounter Details Date Type Department Care Team (Late st Contact Info) Description 08/23/2022 8:54 EST - 08/23/2022 13:29 EST Hospital Encounter [facility] Interventional Radiology Unit [address] [place] [address] Roberto Cardoza PA-C [address] [phone] Asher Loyola MD [address] [phone] Lung nodule Discharge Disposition: Home [...] for 5 days. When to Contact the [facility] (call 911 for severe symptoms): 1. [...] was first noted when she presented to [facility] with atrial fibrillation and increasing pulmonary edema in June. This episode rapidly resolved with better heart rate control. The CT also noted enlarged mediastinal lymphnodes. She was seen by Dr. Glover at [facility] and subsequently underwent a PET-CT demonstrating [...] Her mother from a procedural complication at [facility]. She believes it was a percutaneous biopsy. Social Hx: Social History Tobacco Use ??? Smoking status: Former Types: Cigarettes Quit date: 07/28/2009 Years since quittin.0 ??? Smokeless tobacco: Never Lives at home with: Occupation: Previously worked at [employer]. 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 No asbestos. Tobacco: [...] guided RIGHT lung biopsy Date Performed: 08/23/2022 Radiologist/Cloth Stretcher(s): MD Milla/ELIEZER Cardoza Sedation/Anesthesia: Versed 1.5 mg [...] Contact Info) Description 06/08/2024 13:30 EST Appointment [facility] [place] [address] 06/08/2024 14:30 EST Office Visit [facility] Radiation Oncology - [facility] [address] [place] [address] Pj Bourne MD 111 [facility], [facility] [place] [facility], [address] [place] [address] documented as of this encounter Procedures Procedure Name Priority Date/Time Associated Diagnosis Comments POCT GLUCOSE, INTERFACED Routine 08/23/2022 13:49 EST XR CHEST 1 VIEW STAT 08/23/2022 13:44 EST IR BIOPSY Routine 08/23/2022 11:33 EST Lung nodule NON DISTRICT ADMINISTRATIVE ASSISTANT/FNA CYTOLOGY Routine 08/23/2022 11:15 EST Lung nodule SURGICAL PATHOLOGY Routine 08/23/2022 11 :15 EST Lung nodule POCT GLUCOSE, INTERFACED Routine 08/23/2022 9:47 EST documented in this encounter Results * (ABNORMAL) POCT GLUCOSE, INTERFACED (08/23/2022 13:49 EST) Glucose, POC 224(H) 70 - 100 mg/dL 08/23/2022 13:52 EST [facility] HN LAB POC COMMENT (GLUCOSE) Test Performed by Nursing Services 08/23/2022 13:52 EST [facility] Blood CAPILLARY BLOOD / Unknown 08/23/2022 13:49 EST 08/23/2022 13:52 EST Roberto Cardoza PA-C POINT OF CARE GILBERT T ORDERABLES [facility] [address] [place] [address] * XR CHEST 1 VIEW (08/23/2022 13:44 [...] ??I personally spent 30 minutes in continuous pwii-vc-skuf attendance with the patient during the administration [...] saturation. I personallyspent 30 minutes in continuous vfwh-sk-kqib attendance with the patientduring the administration of [...] explore management options, if applicable. 08/25/2022 5:46 [facility] Final Diagnosis A. LUNG, RIGHT UPPER LOBE, BIOPSY: - Fibrino-fibrous tissue with elasto-fibrotic degenerative change. - Minute portion of mildly atypical epithelial cells. - No definitive malignancy identified. 08/25/2022 5:46 [facility] Diagnosis Comment Deeper levels of (A1) and (A2) have been examined. Please see and correlate with the finding(s) of the concurrent cytology specimen ([id number]). 08/25/2022 5:46 [facility] Attestation By the signature below, the attending physician certifies that they have 1) personally conducted a gross and/or microscopic examination of the described specimen(s), and/or personally interpreted the results of laboratory testing of the described specimen(s), and 2) personally rendered or confirmed the above diagnosis. 08/25/2022 5:46 [facility] at 0546 Clinical History Former smoker seen for A-fib and found to have LAD and a 2 cm nodule FDG + in RUL; evaluate for malignancy; clinical diagnosis code: R91.1 08/25/2022 5:46 [facility] Gross Description A. Received in formalin labelled with proper patient identification (initials B, G) and not otherwise specified are two cortez-pink tissue cores (0.5 cm and 0.4 cm in length, and each less than 0.1 cm in diameter). Entirely submitted in A1-A2. Kizzy Becker 08/23/2022 12:04 08/25/2022 5:46 [facility] Performing Lab [facility] 08/25/2022 5:46 EST [facility] Scanned Images 08/25/2022 5:46 [facility] Tissue ENTIRE RIGHT UPPER LOBE OF LUNG / Unknown Collection, Other / Unknown 08/23/2022 11:15 EST 08/23/2022 11:38 EST Roberto Cardoza PA-C PATHOLOGY ORDERAB LES [facility] [address] [place] [address] * NON DISTRICT ADMINISTRATIVE ASSISTANT/FNA CYTOLOGY (08/23/2022 11:15 EST) Note to Patient The following pathology results have been interpreted by your pathologist and may be available to you before your health provider has had the opportunity to review them. Please allow time for your provider to receive these results and explore management options, if applicable. 08/25/2022 12:02 [facility] Final Diagnosis A. LUNG, RIGHT UPPER LOBE, 2.0 CM MASS, CT-GUIDED FINE NEEDLE ASPIRATION: - Positive for malignant cells. - Non-small cell carcinoma, favor adenocarcinoma. See comment. 08/25/2022 12:02 [facility] Diagnosis Comment The aspirate smears are moderately cellular and show loosely cohesive groups of malignant cells characterized by irregular nuclei and moderately abundant amphophilic cytoplasm. A cell block was prepared to increase cellular yield and shows rare tumor cell groups. Please see the concurrent surgical biopsy specimen ([id number]) for additional information. Javascript Programmer slides of this case were reviewed at the intradepartmental consultation conference. Immunoperoxidase stains were performed on this case to further characterize the lesion. ANTIBODY(CLONE)(BLO CK):RESULT TTF-1 (8G7G3/1, [place]) (Aspirate Smear): Positive, variable nuclear staining NOTE: [...] performance characteristics have been determined by [facility] and/or by the referring laboratory. The [...] high complexity clinical laboratory testing. 08/25/2022 12:02 [facility] Attestation By the signature below, the attending physician certifies that they have personally conducted a gross and/or microscopic examination of the described specimens and rendered or confirmed the above diagnosis. 08/25/2022 12:02 [facility] at 1202 Rapid Diagnosis A. [...] G Henderson; 08.23.2022; 11:20 AM 08/25/2022 12:02 [facility] Clinical History 71 yo female former smoker seen for a-fib and found to have LAD and a 2 cm nodule FDG + in RUL. evaluate for malignancy 08/25/2022 12:02 [facility] Gross Description A. 11 fixed prepared slides, 3 air dried prepared slides, and 1 tube of RPMI for cell block processing were received. 08/25/2022 12:02 [facility] Performing Lab [facility] 08/25/2022 12:02 [facility] Scanned Images 08/25/2022 12:02 [facility] Fine Needle Aspirate ENTIRE RIGHT UPPER LOBE OF LUNG / Unknown 08/23/2022 11:15 EST 08/23/2022 11:35 EST Roberto Cardoza PA-C PATHOLOGY ORDERAB LES [facility] [address] [place] [address] * (ABNORMAL) POCT GLUCOSE, INTERFACED (08/23/2022 9:47 EST) Glucose, POC 171(H) 70 - 100 mg/dL 08/23/2022 9:48 EST [facility] HN LAB POC COMMENT (GLUCOSE) Test Performed by Nursing Services 08/23/2022 9:48 EST [facility] Blood CAPILLARY BLOOD / Unknown 08/23/2022 9:47 EST 08/23/2022 9:48 EST Roberto Cardoza PA-C POINT OF CARE GILBERT T ORDERABLES [facility] [address] [place] [address] documented in this encounter Visit Diagnoses Diagnosis [...] 08/23/2022 documented in this encounter Care Teams Innovations Paraprofessional Relationship Specialty Start Date End Date Esther Verma FNP [address] [place] [address] [address] [place] [phone] PCP - General 07/27/22 documented as of this encounter
--- OUTSIDE RECORDS SUMMARY | 2024-02-17 14:44 | XMS_ITS | Encounter Summary ---
Author Organization [facility] Address [address] [place] [address] Care Team Providers Care Revenue Enforcement Collection Agent Name Role Phone Esther Verma Primary Care Provider [phone] Pj Bourne MD Unavailable [phone] Encounter Details Date Type Department Care Team (Latest Contact Info) Description 11/17/2022 14:00 EDT - 11/17/2022 23:59 EDT Hospital Encounter [facility] Radiation Oncology - [address] [address] [facility] Discharge Disposition: Home or Self [...] Info) Description 06/08/2024 13:30 EST Appointment [facility] Radiology CT Outpatient - [address] [address] 06/08/2024 14:30 EST Office Visit [facility] Radiation Oncology - [address] [phone] Pj Bourne MD [address] [place] [phone] documented as of this encounter Visit Diagnoses Not on filedocumented in this encounter Care Teams Revenue Enforcement Collection Agent Relationship Specialty Start Date End Date Esther Verma FNP [address] [place] [phone] PCP - General 07/27/22 Pj Bourne MD [address] [place] [phone] Radiation Oncology 10/21/22 documented as of this encounter
--- OUTSIDE RECORDS SUMMARY | 2024-02-17 14:44 | XMS_ITS | Encounter Summary ---
Author Organization [facility] Address [address] [place] [address] Care Team Providers Care Laborer Hoisting Name Role Phone Esther Verma EDWARD Primary Care Provider [phone] Reason for Referral * Consult (Routine/Next Available) - New Request Specialty Diagnoses / Procedures [facility] Referred To Contact Hematology and Oncology Diagnoses Malignant neoplasm of upper lobe of right lung (HCC-CMS) Karime Vo, BRAND ADVOCATE [address] [place] [address], [address] [place] [address] Referral ID Status Reason Start Date Expiration Date Visits Requested Visits Authorized [id number] New Request Specialty Services Required 09/01/2022 1 1 Question Answer Location [facility] Tumor Board Lung Working Stage stage 1 Additional Providers Yes List additional providers Rads, path, XRT Clinical Question? Yes Specify clinical question treatment options Radiology Review Review Recent Radiology Are there studies that were perfomed outside of [facility] (even if performed at another network location) [...] Encounter Details Date Type Department Care Team ([facility] st Contact Info) Description 09/01/2022 10:[address] [facility] Pulmonology & Critical [address] [address] Karime Vo NP [address] [facility], [address] [place] [address] Malignant neoplasm of upper lobe [...] Home Patient location state: Visit Location State: [place] The location of the provider: Office Provider location state: Visit Location State: [place] The following people and their roles were [...] was first noted when she presented to [facility] with atrial fibrillation and increasing pulmonary edema in June. This episode rapidly resolved with better heart rate control. The CT also noted enlarged mediastinal lymph nodes. She was seen by Dr. Glover at [facility] and subsequently underwent a PET-CT demonstrating uptake within the nodule. She was originally set up to have a bronchoscopy with the interventional pulmonary team but after discussion between Dr. Delong and her parts sales associate noting that on her last ECHO her [...] Her mother from a procedural complication at [facility]. She believes it was a percutaneous biopsy. Social Hx: Social History Tobacco Use ??? Smoking status: Former Types: Cigarettes Quit date: 07/28/2009 Years since quittin.1 ??? Smokeless tobacco: Never Vaping Use ??? Vaping Use: Never used Substance Use Topics ??? Alcohol use: Not Currently ??? Drug use: Never Lives at home with: Occupation: Previously worked at [employer]. 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 No asbestos. Tobacco: [...] I will discuss her case at the [facility] next week and have her see a treatment team with the understanding that she will likely get her care at the [facility] closer to her home. Francisco Thibodeaux, RN is aware of her case. Plan: [facility] Thanks for asking us to see this patient today Karime Vo NP Interventional Pulmonary [facility] Patient was discussed with Dr. Nilton Delong 28 minutes was spent on the day of the visit in evaluation and coordination of care documented in this encounter Plan of Treatment Upcoming Encounters Date Type Department Care Team (Late st Contact Info) Description 06/08/2024 13:30 EST Appointment [facility] Radiology CT Outpatient - [address] [phone] 06/08/2024 14:30 EST Office Visit [facility] Radiation Oncology - [address] [address]18[address] Pj Bourne MD [address] [place] [address], [address] [place] [address] Scheduled Referrals Name Type Priority Associated Diagnoses Orde r Schedule AMB CONSULT/FOLLOW UP TUMOR BOARD Outpatient Referral Routine Malignant neoplasm of upper lobe of right lung (HCC-CMS) Ordered: 09/01/2022 documented as of this encounter Visit Diagnoses Diagnosis Malignant neoplasm of upper lobe of right lung (HCC-CMS)- Primary Malignant neoplasm of upper lobe, bronchus or lung documented in this encounter Care Teams Laborer Hoisting Relationship Specialty Start Date End Date Esther Verma FNP [address] [place] [address] [address] [place] [address] PCP - General 07/27/22 documented as of this encounter
--- OUTSIDE RECORDS SUMMARY | 2024-02-17 14:44 | XMS_ITS | Encounter Summary ---
Author Organization [facility] Address [address] [place] [address] Care Team Providers Care Respiratory Scientist Name Role Phone Esther Verma EDWARD Primary Care Provider [phone] Encounter Details Date Type Department Care Team (Latest Contact Info) Description 08/23/2022 13:30 EST - 08/23/2022 23:59 EST Hospital Encounter [facility] Radiology [address] [address] Discharge Disposition: Home or Self Care Social [...] Contact Info) Description 06/08/2024 13:30 EST Appointment [facility] Radiology CT Outpatient - [address] [id number] 06/08/2024 14:30 EST Office Visit [facility] Radiation Oncology - [address] [phone] Pj Bourne MD [address] [place] [address], Level [address] [place] [phone] documented as of this encounter Procedures Procedure [...] on filedocumented in this encounter Care Teams Respiratory Scientist Relationship Specialty Start Date End Date Esther Verma FNP [address] [place] [address] [place] [phone] PCP - General 07/27/22 documented as of this encounter
--- OUTSIDE RECORDS SUMMARY | 2024-02-17 14:44 | XMS_ITS | Encounter Summary ---
Author Organization [facility] Address [address] [place] [address] Care Team Providers Care Spinner Open End Name Role Phone Esther Verma Primary Care Provider [phone] Pj Bourne MD Unavailable [phone] Encounter Details Date Type Department Care Team (Late st Contact Info) Description 12/08/2022 Lab Requisition [facility] Pathology & Laboratory Medicine - [address] [id number] Outr Resulting Lab, Provider Social History Tobacco [...] Medical Center Radiology CT Outpatient - Main [place] [address] [place] [address] 06/08/2024 14:30 EST Office Visit [facility] Radiation Oncology - [address] 815[address] Pj Bourne MD 111 [facility], [facility], [address] [place] [address] documented as of this encounter Procedures Procedure Name Priority Date/Time Associated Diagnosis Comments CHRONIC HEPATITIS PROFILE, UNKNOWN TYPE Routine 12/07/2022 10:42 EDT documented in this encounter Results * CHRONIC HEPATITIS PROFILE, UNKNOWN TYPE (12/07/2022 10:42 EDT) Hep B Surface Ag Negative Negative 12/10/19 9:[address] [facility] Hep B Surface Ab, Quantitative <3.1 See Note mIU/mL 12/09/2022 9:[address] [facility] Comment: Reference Range for Hep B Surface Ab, Quant: Positive: >= 10.0 mIU/mL Negative: ??< 10.0 mIU/mL Patient is presumed to not be immune to infection with Hepatitis B Virus. Hep B Surface Ab, Qualitative Negative See Note 12/09/2022 9:[address] [facility] Comment: Reference Range for Hep B Surface Ab, Qual: Unvaccinated: ??Negative Vaccinated: ??Positive Hepatitis B Core Ab, Total Negative Negative 12/09/2022 9:[address] [facility] Hep C Antibody Negative Negative 12/09/2022 9:[address] [facility] Blood VENOUS BLOOD / Unknown 12/07/2022 10:42 EDT 12/08/2022 18:04 EDT Provider Outr Resulting Lab CHEMISTRY & BLOOD GAS ORDERABLES [facility] [address] [place] [address] documented in this encounter Visit Diagnoses Not on filedocumented in this encounter Care Teams Spinner Open End Relationship Specialty Start Date End Date Esther Verma FNP 26 [facility] [address] [place] [phone] PCP - General 07/27/22 Pj Bourne MD [address] [place] [address], [address] [place] [address] Radiation Oncology 10/21/22 documented as of this encounter
--- OUTSIDE RECORDS SUMMARY | 2024-02-17 14:44 | XMS_ITS | Encounter Summary ---
Author Organization [facility] Address [address] [place] [address] Care Team Providers Care Connie Scratcher Name Role Phone Esther Verma Primary Care Provider [phone] Pj Bourne MD Unavailable [phone] Encounter Details Date Type Department Care Team (Latest Contact Info) Description 11/08/2022 9:38 EDT - 11/08/2022 23:59 EDT Hospital Encounter [facility] Radiation Oncology - [address] [address] [facility] Resource, Infinity Discharge Disposition: Home or [...] 06/08/2024 13:30 EST Appointment [facility] Radiology CT Outpatient - [address] [address] 06/08/2024 14:30 EST Office Visit [facility] Radiation Oncology - [address] 828[address] Pj Bourne MD [address] [place] [phone] documented as of this encounter Visit Diagnoses Not on filedocumented in this encounter Care Teams Connie Scratcher Relationship Specialty Start Date End Date Esther Verma FNP [address] [place] [phone] PCP - General 07/27/22 Pj Bourne MD [address] [place] [phone] Radiation Oncology 10/21/22 documented as of this encounter
--- OUTSIDE RECORDS SUMMARY | 2024-02-17 14:44 | XMS_ITS | Encounter Summary ---
Author Organization [facility] Address [address] [place] [address] Care Team Providers Care Licensed Mortgage Loan Officer Name Role Phone Erinn Vermay EDWARD Primary Care Provider [phone] Pj Bourne MD Unavailable [phone] Reason for Visit * Reason Comments Lung Cancer Encounter Details Date Type Department Care Team (Late st Contact Info) Description 10/22/2022 Radiation Therapy Visit [facility] Radiation Oncology - Main [place] [address] [place] [address] Melissa Herrera RN [address] [place] [address] Malignant neoplasm of upper lobe, right bronchus [...] Notes * Melissa Herrera RN - 10/22/2022 1474 EDT Treatment Information Plan for Treatment: definitive [...] 10 pack year hx, quit 1984 Referrals equipment worker: Yes (SHOBHA Marin will contact patient for Distress Tool and to assess needs) Services: Hope Meldrim: Other: PATIENT EDUCATION TOPIC: RADIATION THERAPY TAUGHT: [...] 71 yo female who lives alone in [facility]. She presented in Jun 2022 with Afib, [...] Contact Info) Description 06/08/2024 13:30 EST Appointment [facility] Radiology CT Outpatient - [address] [address] 06/08/2024 14:30 EST Office Visit [facility] Radiation Oncology - [address] [phone] Pj Bourne MD [address] [place] [phone] documented as of this encounter Visit Diagnoses Diagnosis Malignant neoplasm of upper lobe, right bronchus or lung (HCC-CMS)- Primary documented in this encounter Care Teams Licensed Mortgage Loan Officer Relationship Specialty Start Date End Date Esther Vrema FNP [address] [place] [phone] PCP - General 07/27/22 Pj Bourne MD [address] [place] [phone] Radiation Oncology 10/21/22 documented as of this encounter
--- OUTSIDE RECORDS SUMMARY | 2024-02-17 14:44 | XMS_ITS | Encounter Summary ---
Author Organization [facility] Address [address] [place] [address] Care Team Providers Care Director Broadcast Name Role Phone Esther Verma Primary Care Provider [phone] Pj Bourne MD Unavailable [phone] Encounter Details Date Type Department Care Team (Latest Contact Info) Description 11/15/2022 13:04 EDT - 11/15/2022 23:59 EDT Hospital Encounter [facility] Radiation Oncology - [address] [address] [employer] Resource, Infinity Discharge Disposition: Home or Self [...] Appointment [facility] Radiology CT Outpatient - [address] [address] 06/08/2024 14:30 EST Office Visit [facility] Radiation Oncology - [address] [address]87[address] Pj Bourne MD [address] [place] [phone] documented as of this encounter Visit Diagnoses Not on filedocumented in this encounter Care Teams Director Broadcast Relationship Specialty Start Date End Date Esther Verma FNP [address] [place] [phone] PCP - General 07/27/22 Pj Bourne MD [address] [place] [phone] Radiation Oncology 10/21/22 documented as of this encounter
--- OUTSIDE RECORDS SUMMARY | 2024-02-17 14:44 | XMS_ITS | Encounter Summary ---
Author Organization [facility] Address [address] [place] [address] Care Team Providers Care Bessemer Bottom Maker Name Role Phone Esther Verma EDWARD Primary Care Provider [phone] Reason for Visit * Reason Comments Follow-up New Patient Visit Encounter Details Date Type Department Care Team (Late st Contact Info) Description 09/13/2022 14:30 EST Office Visit [facility] Cardiothoracic Surgery - [address] [phone] Haley Alfonso MD [address] [place] [address], Level [address] [place] [address] Primary cancer of right upper [...] Lennon MD - 09/13/2022 1430 EST [facility] Clinic Visit Note Date: [...] I personally spent 30 minutes in continuous [id number] attendancewith the patient during the administration of [...] she will do closer to home in [facility]. Haley Alfonso MD 09/14/2022 11:26 Haley Alfonso MD documented in this encounter Plan of Treatment Upcoming Encounters Date Type Department Care Team (Late st Contact Info) Description 06/08/2024 13:30 EST Appointment [facility] Radiology CT Outpatient - [address] [address]151 06/08/2024 14:30 EST Office Visit [facility] Radiation Oncology - [facility] [address] [place] [address] Pj Bourne MD [address] [place] [address], [facility], [address] [place] [address] documented as of this encounter Visit Diagnoses Diagnosis 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-CMS)- Primary documented in this encounter Historical Medications * This list may reflect changes made after this encounter. Medication Sig Dispensed Refills Start Date End Date BD ULTRA-FINE SHORT PEN NEEDLE Use 1 pen needle as directed 2 times daily. 06/17/2022 added in this encounter Care Teams Bessemer Bottom Maker Relationship Specialty Start Date End Date Esther Verma FNP [address] [place] [address] [address] [place] [phone] PCP - General 07/27/22 documented as of this encounter
--- OUTSIDE RECORDS SUMMARY | 2024-02-17 14:44 | XMS_ITS | Encounter Summary ---
Author Organization [facility] Address [address] [place] [address] Care Team Providers Care Taping Supervisor Name Role Phone Esther Verma Primary Care Provider [phone] Pj Bourne MD Unavailable [phone] Reason for Visit * Reason Onset Date Comments Results 05/16/2023 Encounter Details Date Type Department Care Team (Late st Contact Info) Description 05/16/2023 Telephone [facility] Endocrinology - [address] [phone] Stephania Munoz, DO [address] [place] [address] Results Social History Tobacco Use [...] [facility] Radiology CT Outpatient - [address] [address] 06/08/2024 14:30 EST Office Visit [facility] Radiation Oncology - [address] [phone] Pj Bourne MD [address] [place] [phone] documented as of this encounter Visit Diagnoses Not on filedocumented in this encounter Care Teams Taping Supervisor Relationship Specialty Start Date End Date Esther Verma FNP [address] [place] [phone] PCP - General 07/27/22 Pj Bourne MD [address] [place] [phone] Radiation Oncology 10/21/22 documented as of this encounter
--- OUTSIDE RECORDS SUMMARY | 2024-02-17 14:44 | XMS_ITS | Encounter Summary ---
Author Organization [facility] Address [address] [place] [address] Care Team Providers Care Steam Table Attendant Name Role Phone Bayron Esther EDWARD Primary Care Provider [phone] Pj Bourne MD Unavailable [phone] Encounter Details Date Type Department Care Team (Late st Contact Info) Description 11/15/2022 Radiation Therapy Visit [facility] Radiation Oncology - [address] [address]27[address] Pj Bourne MD [address] [place] [address], Level 2 [place] [address] Primary cancer of right upper [...] IA2 (cT1b, cN0, cM0) - Signed by jP Bourne MD on 09/13/2022 Date: 11/15/2022 Preparation [...] Contact Info) Description 06/08/2024 13:30 EST Appointment [facility] Radiology CT Outpatient - [address] 227071 06/08/2024 14:30 EST Office Visit [facility] Radiation Oncology - [address] 9649[address] Pj Bourne MD [address] [place] [phone] documented as of this encounter Visit Diagnoses Diagnosis 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
--- OUTSIDE RECORDS SUMMARY | 2024-02-17 14:44 | XMS_ITS | Encounter Summary ---
Author Organization [facility] Address [address] [place] [address] Care Team Providers Care Orthotics Prosthetics Technician Name Role Phone Esther Verma Primary Care Provider [phone] Pj Bourne MD Unavailable [phone] Reason for Visit * Reason Onset Date Comments Follow-up 11/18/2022 Encounter Details Date Type Department Care Team (Late st Contact Info) Description 11/18/2022 Telephone [facility] Radiation Oncology - [facility] [address] [place] [address] Melissa Herrera RN [address] [place] [address] Follow-up Social History Tobacco Use Types Packs/Day [...] 13:30 EST Appointment [facility] Radiology CT Outpatient - [address] [phone] 06/08/2024 14:30 EST Office Visit [facility] Radiation Oncology - [address] [address] Pj Bourne MD [address] [place] [phone] documented as of this encounter Visit Diagnoses Not on filedocumented in this encounter Care Teams Orthotics Prosthetics Technician Relationship Specialty Start Date End Date Esther Verma FNP [address] [place] [phone] PCP - General 07/27/22 Pj Bourne MD [address] [place] [phone] Radiation Oncology 10/21/22 documented as of this encounter
--- OUTSIDE RECORDS SUMMARY | 2024-02-17 14:44 | XMS_ITS | Encounter Summary ---
Author Organization [facility] Address [address] [place] [address] Care Team Providers Care Legal Internship Name Role Phone Esther Verma Primary Care Provider [phone] Pj Bourne MD Unavailable [phone] Encounter Details Date Type Department Care Team (Latest Contact Info) Description 10/22/2022 7:29 EDT - 10/22/2022 23:59 EDT Hospital Encounter [facility] Radiation Oncology - [address] [address] Malignant neoplasm of upper lobe, right bronchus [...] Contact Info) Description 06/08/2024 13:30 EST Appointment [facility] [place] [address] 06/08/2024 14:30 EST Office Visit [facility] Radiation Oncology - [facility] [address] [place] [address] Pj Bourne MD 111 [facility], [facility], [address] [place] [address] documented as of this encounter [...] (HCC-CMS) documented in this encounter Care Teams Legal Internship Relationship Specialty Start Date End Date Esther Verma FNP [address] [place] [phone] PCP - General 07/27/22 Pj Bourne MD [address] [place] [address], [address] [place] [phone] Radiation Oncology 10/21/22 documented as of this encounter
--- OUTSIDE RECORDS SUMMARY | 2024-02-17 14:44 | XMS_ITS | Encounter Summary ---
Author Organization [facility] Address [address] [place] [address] Care Team Providers Care Quarry Supervisor Name Role Phone Esther Verma Primary Care Provider [phone] Pj Bourne MD Unavailable [phone] Reason for Referral * Radiology Services (Routine/Next Available) - Authorization Not Required Specialty Diagnoses / Procedures Referred By Chau car Referred To Contact Diagnoses Nontoxic multinodular goiter Procedures US GUIDED NECK FNA Stephania Munoz DO [address] [place] [address] [facility] Referral ID Status Reason Start Date Expiration Date Visits Requested Visits Authorized [id number] Authorization Not Required 3 1 1 Reason for Visit * Reason Comments Thyroid Problem * Referral (Routine) - Receiving Office to Obtain Authorization Specialty Diagnoses / Procedures Referred By Chau car Referred To Contact Endocrinology Diagnoses Nontoxic single thyroid nodule Esther Verma FNP [address] [place] [phone] [facility] Endocrinology [address] [place] [address] Referral ID Status Reason Start Date Expiration Date Visits Requested Visits Authorized [id number] Receiving Office to Obtain Authorization 1 1 Encounter Details Date Type Department Care Team (Late st Contact Info) Description 05/02/2023 13:40 EDT Office Visit [facility] Endocrinology - [facility] [address] [place], [place] [phone] Stephania Munoz, [address] [place] [phone] Nontoxic multinodular goiter (Primary Dx) Social [...] THR use. She recently ended radiation of herbStatusPage for Lung CA, and she tells me that she is unsure of the type of lung cancer she has, after presenting with chronic Afib, and tells me that it was discovered on xray. She has a history of tobacco abuse, but quit a long time ago. 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 Laboratory: Thyroid: None Imagin01/17/23 US Thyroid: [facility]: IMPRESSION: Nodule at the lower [...] Contact Info) Description 06/08/2024 13:30 EST Appointment [facility] Radiology CT Outpatient - [address] [id number] 06/08/2024 14:30 EST Office Visit [facility] Cancer Center Radiation Oncology - [address] [address] Pj Bourne MD [address] [place] [address], [facility], Level 2 [place] [address] Scheduled Orders Name Type Priority Associated Diagnoses Orde r Schedule US GUIDED NECK FNA Imaging Routine Nontoxic multinodular goiter Expected: 05/21/2023 (Approximate), Expires: 04/20/2024 documented as of this encounter Results * (ABNORMAL) THYROGLOBULIN, TUMOR MARKER, S (08/29/2023 12:10 EST) Thyroglobulin Antibody, S <1.8 <1.8 IU/mL 08/30/2023 16:29 EST [facility] Thyroglobulin, Tumor Marker 25(H) ng/mL 08/30/2023 16:29 EST [facility] Comment: REFERENCE VALUE Athyrotic <0.1 Intact Thyroid <=33 Thyroglobulin Interpretation SEE NOTE 08/30/2023 16:29 EST [facility] Comment: Thyroglobulin (Tg) levels must be interpreted [...] testing methods are immunoenzymatic assays manufactured by [employer] and performed on the [employer] DXI 800. Values obtained from different assay methods or kits may be different and cannot be used interchangeably. The results cannot be interpreted as absolute evidence for the presence or absence of malignant disease. Test Performed by: [facility] [place] [facility] [address] [place] [address] Pre Parole Counseling Aide: Abel Cloud M.D. Ph.D.; CLIA# [id number] Blood VENOUS BLOOD / Unknown Venipuncture / Unknown 08/29/2023 12:10 EST 08/29/2023 12:27 EST Stephania Munoz DO CHEMISTRY & BLOOD GAS ORDERABLES Performing Organization Address City/[facility]/ZIP Co de Phone Number [facility] [address] [place] [address] * T4 FREE (08/29/2023 12:10 EST) T4, Free 1.4 0.8 - 2.2 ng/dL 08/29/2023 13:[address] [facility] Blood VENOUS BLOOD / Unknown Venipuncture / Unknown 08/29/2023 12:10 EST 08/29/2023 12:26 EST Stephania Munoz DO CHEMISTRY & BLOOD GAS ORDERABLES Performing Organization Address City/[facility]/ZIP Co de Phone Number [facility] [address] [place] [address] * TSH (08/29/2023 12:10 EST) TSH 1.59 0.47 - 4.68 mIU/L 08/29/2023 13:[address] [facility] Blood VENOUS BLOOD / Unknown Venipuncture / Unknown 08/29/2023 12:10 EST 08/29/2023 12:[address] [facility] - 08/29/2023 13:30 EST The results of this assay can be falsely lowered due to the consumption of Biotin. Stephania Munoz DO CHEMISTRY & BLOOD GAS ORDERABLES [facility] [address] [place] [address] documented in this encounter Visit Diagnoses Diagnosis Nontoxic multinodular goiter- Primary documented in this encounter Orders Lab Orders Without Results Count Last Ordered D ate First Ordered Date ANTI THYROGLOBULIN 1 05/02/2023 documented in this encounter Care Teams Quarry Supervisor Relationship Specialty Start Date End Date Esther Verma FNP 26 [facility] [address] [place] [address] PCP - General 07/27/22 Pj Bourne MD 111 [facility], [address] 2 [place] [phone] Radiation Oncology 10/21/22 documented as of this encounter
--- OUTSIDE RECORDS SUMMARY | 2024-02-17 14:44 | XMS_ITS | Encounter Summary ---
Author Organization [facility] Address [address] [place] [address] Care Team Providers Care Electrician Third Name Role Phone Esther Verma Primary Care Provider [phone] Pj Bourne MD Unavailable [phone] Reason for Visit * (Routine/Next Available) - Order Cancelled Specialty Diagnoses / Procedures Referred By Contdakotah t Referred To Contact Procedures US OUTSIDE IMAGES THYROID Imaging, External Referral ID Status Reason Start Date Expiration Date V isits Requested Visits Authorized [id number] Order Cancelled 05/05/2023 1 1 Encounter Details Date Type Department Care Team (Latest Contact Info) Description 01/17/2023 - 01/17/2023 23:59 EDT Hospital Encounter [facility] Center Secondary [place] Discharge Disposition: Home [...] Appointment [facility] Radiology CT Outpatient - [address] [address] 06/08/2024 14:30 EST Office Visit [facility] Cancer Center Radiation Oncology - [address] 5187[address] Pj Bourne MD [address] [place] [phone] documented as of this encounter Visit Diagnoses Not on filedocumented in this encounter Care Teams Electrician Third Relationship Specialty Start Date End Date Esther Verma FNP 26 [facility] [address] [place] [address] PCP - General 07/27/22 Pj Bourne MD [address] [place] [phone] Radiation Oncology 10/21/22 documented as of this encounter
--- OUTSIDE RECORDS SUMMARY | 2024-02-17 14:44 | XMS_ITS | Encounter Summary ---
Author Organization [facility] Address [address] [place] [address] Care Team Providers Care Vehicle Care Specialist Name Role Phone Esther Verma EDWARD Primary Care Provider [phone] Reason for Referral * Test (Routine/Next Available) - Authorization Not Required Specialty Diagnoses / Procedures Referred By Contac t Referred To Contact Diagnoses Lung mass Procedures PULMONARY FUNCTION TESTING Carlyle Engle MD [address] [place] [address], [address] [place] [address] Referral ID Status Reason Start Date Expiration Date Visits Requested Visits Authorized [id number] Authorization Not Required 09/10/2022 1 1 Encounter Details Date Type Department Care Team (Late st Contact Info) Description 09/10/2022 Orders Only [facility] Cancer Center Hematology & [place] [address] Francisco Thibodeaux RN Lung mass (Primary Dx) [...] EST Appointment [facility] Radiology CT Outpatient - [address] [address] 06/08/2024 14:30 EST Office Visit [facility] Radiation Oncology - [address] 714261 Pj Bourne MD [address] [place] [address], [address] [place] [phone] documented as of this encounter Results * PULMONARY FUNCTION TESTING (09/13/2022 13:54 EST) 09/13/2022 13:5 4 EST Carlyle Engle MD PFT ORDERABLES Performing Organization Address City/State/[facility] Co de Phone Number [facility] PFT documented in this encounter Visit Diagnoses Diagnosis Lung mass- Primary Swelling, mass, or lump in chest documented in this encounter Care Teams Vehicle Care Specialist Relationship Specialty Start Date End Date Esther Verma FNP 26 [facility] [address] [place] [address] PCP - General 07/27/22 documented as of this encounter
--- OUTSIDE RECORDS SUMMARY | 2024-02-17 14:44 | XMS_ITS | Encounter Summary ---
Author Organization [facility] Address [address] [place] [address] Care Team Providers Care Veterans Rehabilitation Counselor Name Role Phone Esther Verma EDWARD Primary Care Provider [phone] Reason for Visit * Reason Comments Tumor Board * Consult (Routine/Next Available) - New Request Specialty Diagnoses / Procedures Referred By Chau car Referred To Contact Hematology and Oncology Diagnoses Malignant neoplasm of upper lobe of right lung (HCC-CMS) Karime Vo, SHOE SHINER 111 [facility] [address] [place] [address] Referral ID Status Reason Start Date Expiration Date Visits Requested Visits Authorized [id number] New Request Specialty Services Required 09/01/2022 1 1 Encounter Details Date Type Department Care Team (Late st Contact Info) Description 09/13/2022 13:30 EST Tumor Board [facility] Cancer Center Hematology & Oncology - [address] [address] Primary cancer of right upper lobe of [...] Description 06/08/2024 13:30 EST Appointment [facility] Radiology CT Outpatient - [address] [address] 06/08/2024 14:30 EST Office Visit [facility] [place]iation [place] [address] Pj Bourne MD 111 [facility], [facility], Level [address] [place] [phone] Scheduled Referrals Name Type Priority Associated Diagnoses Orde r Schedule AMB CONSULT/FOLLOW UP TUMOR BOARD Outpatient Referral Routine Malignant neoplasm of upper lobe of right lung (HCC-CMS) Ordered: 09/01/2022 documented as of this encounter Visit Diagnoses Diagnosis 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
--- OUTSIDE RECORDS SUMMARY | 2024-02-17 14:44 | XMS_ITS | Encounter Summary ---
Author Organization [facility] Address [address] [place] [address] Care Team Providers Care Inside Sales Trainer Name Role Phone Erinn Vermay EDWARD Primary Care Provider [phone] Pj Bourne MD Unavailable [phone] Encounter Details Date Type Department Care Team (Late st Contact Info) Description 11/11/2022 Radiation Therapy Visit [facility] Radiation Oncology - [address] [address] Pj Bourne MD [address] [place] [address], Level 2 [place] [address] Primary cancer of right upper [...] EST Appointment [facility] Radiology CT Outpatient - [address] [address] 06/08/2024 14:30 EST Office Visit 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
--- OUTSIDE RECORDS SUMMARY | 2024-02-17 14:44 | XMS_ITS | Encounter Summary ---
Author Organization [facility] Address [address] [place] [address] Care Team Providers Care Community Development Aide Name Role Phone Esther Verma Primary Care Provider [phone] Pj Bourne MD Unavailable [phone] Encounter Details Date Type Department Care Team (Latest Contact Info) Description 11/12/2022 10:03 EDT - 11/12/2022 23:59 EDT Hospital Encounter [facility] Radiation Oncology - [address] [address] [facility] Resource, [place] Discharge Disposition: Home or Self [...] Contact Info) Description 06/08/2024 13:30 EST Appointment [facility] Radiology CT Outpatient - [address] [address] 06/08/2024 14:30 EST Office Visit [facility] Cancer Center Radiation Oncology - [address] 6[address] Pj Bourne MD [address] [place] [phone] documented as of this encounter Visit Diagnoses Not on filedocumented in this encounter Care Teams Community Development Aide Relationship Specialty Start Date End Date Esther Verma FNP [address] [place] [phone] PCP - General 07/27/22 Pj Bourne MD [address] [place] [phone] Radiation Oncology 10/21/22 documented as of this encounter
--- OUTSIDE RECORDS SUMMARY | 2024-02-17 14:44 | XMS_ITS | Encounter Summary ---
Author Organization [facility] Address [address] [place] [address] Care Team Providers Care Mechanical And Auto Body Car Checker Name Role Phone BayronEsther EDWARD Primary Care Provider [phone] Pj Bourne MD Unavailable [phone] Reason for Referral * Radiology Services (Routine/Next Available) - Authorization Not Required Specialty Diagnoses / Procedures [facility] Referred To Contact Diagnoses 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-CMS) Procedures CT CHEST WO CONTRAST Pj Bourne MD [address] [place] [phone] [facility] Referral ID Status Reason Start Date Expiration Date Visits Requested Visits Authorized [id number] Authorization Not Required 11/11/2022 1 1 Encounter Details Date Type Department Care Team (Late st Contact Info) Description 11/11/2022 Radiation Therapy Visit [facility] Medical Center Radiation Oncology - [address] [phone] Pj Bourne MD [address] [place] [phone] Primary cancer of right upper lobe [...] Contact Info) Description 06/08/2024 13:30 EST Appointment [facility] Radiology CT Outpatient - [address] [address] 06/08/2024 14:30 EST Office Visit [facility] Cancer Center Radiation Oncology - [address] 6349[address] Pj Bourne MD [address] [place] [address], [facility], Level [address] [place] [phone] documented as of this encounter Results * [...] left lobe of thyroid with calcifications, unchanged. [id number] Narrative 05/16/2023 14:[address] CHEST WO [...] of left lobe of thyroid with calcifications,unchanged. [id number] Pj Bourne MD IMG CT ORDERABLES documented in this encounter Visit Diagnoses Diagnosis 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-CMS)- Primary 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-CMS) documented in this encounter Care Teams Mechanical And Auto Body Car Checker Relationship Specialty Start Date End Date Esther Verma FNP [address] [place] [address] [address] [place] [address] PCP - General 07/27/22 Pj Bourne MD [address] [place] [address] [address] [place] [phone] Radiation Oncology 10/21/22 documented as of this encounter
--- OUTSIDE RECORDS SUMMARY | 2024-02-17 14:44 | XMS_ITS | Encounter Summary ---
Author Organization [facility] Address [address] [place] [address] Care Team Providers Care Coding Auditor Name Role Phone Bayron Esther EDWARD Primary Care Provider [phone] Pj Bourne MD Unavailable [phone] Encounter Details Date Type Department Care Team (Late st Contact Info) Description 11/17/2022 Radiation Therapy Visit [facility] Cancer Center Radiation Oncology - [address] [address] Pj Bourne MD [address] [place] [address], Level [address] [place] [address] Primary cancer of right upper [...] Info) Description 06/08/2024 13:30 EST Appointment [facility] Radiology CT Outpatient - [address] [address] 06/08/2024 14:30 EST Office Visit [facility] Cancer Center Radiation Oncology - [address] [address]36[address] Pj Bourne MD 111 [facility], Level [address] [place] [phone] documented as of this encounter Visit Diagnoses Diagnosis 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
--- OUTSIDE RECORDS SUMMARY | 2024-02-17 14:44 | XMS_ITS | Encounter Summary ---
Author Organization [facility] Address [address] [place] [address] Care Team Providers Care Irrigation Foreman Name Role Phone Erinn Vermay EDWARD Primary Care Provider [phone] Pj Bourne MD Unavailable [phone] Encounter Details Date Type Department Care Team (Late st Contact Info) Description 11/13/2022 Radiation Therapy Visit [facility] Radiation Oncology - [address] 5610[address] Pj Bourne MD [address] [place] [address], Level [address] [place] [address] Primary cancer of right upper [facility] [address] [address] 06/08/2024 14:30 EST Office Visit [facility] Radiation Oncology - [address] [address] Pj Bourne MD [address] [place] [phone] documented as of this encounter Visit Diagnoses Diagnosis 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
--- OUTSIDE RECORDS SUMMARY | 2024-02-17 14:44 | XMS_ITS | Encounter Summary ---
Author Organization [facility] Address [address] [place] [address] Care Team Providers Care Watershed Engineer Name Role Phone Esther Verma EDWARD Primary Care Provider [phone] Reason for Visit * Reason Comments Lung Cancer * Consult (Routine) - Authorization Not Required Specialty Diagnoses / Procedures Referred By Chau car Referred To Contact Karime Vo NP [address] [place] [phone] Pj Bourne MD [address] [place] [phone] Referral ID Status Reason Start Date Expiration Date Visits Requested Visits Authorized [id number] Authorization Not Required 1 1 Encounter Details Date Type Department Care Team (Late st Contact Info) Description 09/13/2022 16:00 EST Initial consult [facility] Cancer Center [place] [address] Pj Bourne MD [address] [place] [phone] Primary cancer of right upper lobe [...] Care Provider: Esther Munguia [address], 26 [facility] [address] Referring Provider: Karime Vo NP 111 [facility], Level [address] [place] [address] Impression: Patient with stage IA lung cancer. [...] with radiation. Patient was seen in lung [facility] with her daughter Anabell. Had tumor removed [...] saturation. I personally spent 30 minutesin continuous ycki-mo-twow attendance with the patient during the administration [...] visit. 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
--- OUTSIDE RECORDS SUMMARY | 2024-02-17 14:44 | XMS_ITS | Encounter Summary ---
Author Organization [facility] Address [address] [place] [address] Care Team Providers Care Enterprise Cloud Architect Name Role Phone Esther Verma Primary Care Provider [phone] Pj Bourne MD Unavailable [phone] Encounter Details Date Type Department Care Team (Latest Contact Info) Description 11/15/2022 - 11/15/2022 13:03 EDT Hospital Encounter [facility] Radiation Oncology - Main [place] [address] [place] [phone] Malignant neoplasm of upper lobe, right bronchus [...] [facility] Radiology CT Outpatient - [address] [address]387[address] 06/08/2024 14:30 EST Office Visit [facility] Cancer Center Radiation Oncology - [address] [place] [address] Pj Bourne MD [address] [place] [address], [facility], Level [address] [place] [address] documented as of this encounter [...] MSQ TREATMENT SUMMARY (11/15/2022 13:39 EDT) Pathologist [facility] SABR MOSAI Q RADIATION [...] (HCC-CMS) documented in this encounter Care Teams Enterprise Cloud Architect Relationship Specialty Start Date End Date Esther Verma FNP [address] [place] [phone] PCP - General 07/27/22 Pj Bourne MD [address] [place] [address] [address] [place] [address] Radiation Oncology 10/21/22 documented as of this encounter
--- OUTSIDE RECORDS SUMMARY | 2024-02-17 14:44 | XMS_ITS | Encounter Summary ---
Author Organization [facility] Address [address] [place] [address] Care Team Providers Care Sparmaker Name Role Phone BayronEsther EDWARD Primary Care Provider [phone] Reason for Referral * Test (Routine/Next Available) - Authorization Not Required Specialty Diagnoses / Procedures Referred By Contac t Referred To Contact Diagnoses Lung mass Procedures PULMONARY FUNCTION TESTING Carlyle Engle MD [address] [place] [phone] Referral ID Status Reason Start Date Expiration Date Visits Requested Visits Authorized [id number] Authorization Not Required 09/10/2022 1 1 Reason for Visit * Test (Routine/Next Available) - Authorization Not Required Specialty Diagnoses / Procedures Referred By Contac t Referred To Contact Diagnoses Lung mass Procedures PULMONARY FUNCTION TESTING Carlyle Engle MD [address] [place] [phone] Referral ID Status Reason Start Date Expiration Date Visits Requested Visits Authorized [id number] Authorization Not Required 09/10/2022 1 1 Encounter Details Date Type Department Care Team (Latest Contact Info) Description 09/13/2022 13:15 EST - 09/13/2022 23:59 EST Hospital Encounter [facility] Pulmonary Function Lab - [address] [address]89201 Lung mass Discharge Disposition: Home or Self [...] EST Testing was performed and recorded in [employer]. See complete report in Procedures. documented in this encounter Plan of Treatment Upcoming Encounters Date Type Department Care Team (Late st Contact Info) Description 06/08/2024 13:30 EST Appointment [facility] Radiology CT Outpatient - [address] [phone] 06/08/2024 14:30 EST Office Visit [facility] Radiation Oncology - [address] [phone] Pj Bourne MD [address] [place] [address], Level 2 [place] [address] documented as of this encounter Procedures Procedure Name Priority Date/Time Associated Diagnosis Comments PULMONARY FUNCTION TESTING Routine 09/13/2022 13:54 EST Lung mass documented in this encounter Results * PULMONARY FUNCTION TESTING (09/13/2022 13:54 EST) 09/13/2022 13:5 4 EST Carlyle Engle MD PFT ORDERABLES [facility] PFT documented in this encounter Visit Diagnoses [...] 09/13/2022 documented in this encounter Care Teams Sparmaker Relationship Specialty Start Date End Date Esther Verma FNP 26 [facility] [address] [place] [address] PCP - General 07/27/22 documented as of this encounter
--- OUTSIDE RECORDS SUMMARY | 2024-02-17 14:44 | XMS_ITS | Encounter Summary ---
Author Organization [facility] Address [address] [place] [address] Care Team Providers Care Carbide Grinder Name Role Phone Erinn Vermay EDWARD Primary Care Provider [phone] Pj Bourne MD Unavailable [phone] Reason for Visit * Reason Comments Lung Cancer Encounter Details Date Type Department Care Team (Late st Contact Info) Description 11/17/2022 Documentation Visit [facility] Radiation Oncology - [place] [address] [place] [address] Melissa Herrera RN [address] [place] [address] Social History Tobacco Use Types Packs/Day Years [...] into the car for her trip to [facility]. She was provided an emesis basin, tissue, a towel and ice pack. documented in this encounter Plan of Treatment Upcoming Encounters Date Type Department Care Team (Late st Contact Info) Description 06/08/2024 13:30 EST Appointment [facility] Radiology CT Outpatient - [address] [phone] 06/08/2024 14:30 EST Office Visit [facility] Radiation Oncology - [address] [phone] Pj Bourne MD [address] [place] [phone] documented as of this encounter Visit Diagnoses Not on filedocumented in this encounter Care Teams Carbide Grinder Relationship Specialty Start Date End Date Esther Verma FNP 26 [facility] [address] [place] [phone] PCP - General 07/27/22 Pj Bourne MD [address] [place] [address] [place] [address] Radiation Oncology 10/21/22 documented as of this encounter
--- OUTSIDE RECORDS SUMMARY | 2024-02-17 14:44 | XMS_ITS | Encounter Summary ---
Author Organization [facility] Address [address] [place] [address] Care Team Providers Care Protection Engineer Name Role Phone Esther Verma Primary Care Provider [phone] Pj Bourne MD Unavailable [phone] Encounter Details Date Type Department Care Team (Late st Contact Info) Description 05/13/2023 Orders Only [facility] Radiology - [address] [phone] Marcus Garcia MD 111 [facility], Level 1 [place] [phone] Social History Tobacco Use Types Packs/Day Years [...] Description 06/08/2024 13:30 EST Appointment [facility] Radiology CT Outpatient - [address] [phone] 06/08/2024 14:30 EST Office Visit [facility] Radiation Oncology - [address] [phone] Pj Bourne MD [address] [place] [phone] documented as of this encounter Visit Diagnoses Not on filedocumented in this encounter Care Teams Protection Engineer Relationship Specialty Start Date End Date Esther Verma FNP [address] [place] [phone] PCP - General 07/27/22 Pj Buorne MD [address] [place] [phone] Radiation Oncology 10/21/22 documented as of this encounter
--- OUTSIDE RECORDS SUMMARY | 2024-02-17 14:45 | XMS_ITS | Encounter Summary ---
Author Organization [facility] Address [address] [place] [address] Care Team Providers Care Chief Of Production Name Role Phone Unknown, Provider Primary Care Provider [phone] Reason for Visit * Vascular Lab (Routine) - Closed Specialty Diagnoses / Procedures Referred By Chau car Referred To Contact Diagnoses Claudication ([facility]) Procedures US LOWER ARTERIAL DUPLEX Elmo Meneses MD 111 [facility], [address] [place] [address] Referral ID Status Reason Start Date Expiration Date Visits Re quested Visits Authorized [id number] Closed 01/11/2020 1 1 Encounter Details Date Type Department Care Team (Late st Contact Info) Description 03/28/2020 13:00 EDT Ancillary Procedure [facility] Vascular Surgery - [address] 857141 Social History Tobacco Use Types Packs/Day Years [...] Info) Description 06/08/2024 13:30 EST Appointment [facility] Radiology CT Outpatient - [facility] [address] [place] [address] 06/08/2024 14:30 EST Office Visit [facility] Radiation Oncology - [facility] [address] [place], [place] [address] Pj Bourne MD 111 [facility], Level [address] [place] [phone] documented as of this encounter Procedures Procedure Name Priority Date/Time Associated Diagnosis Comments US LOWER ARTERIAL DUPLEX BILATERAL WITH SHARYN Routine 03/28/2020 13:48 EDT Claudication ([facility]) documented in this encounter Results * US [...] -53 cm/s [facility] POINT OF CARE Left TEACHER OF THE DEAF prox sys PSV 72 cm/s [facility] POINT OF CARE Left TEACHER OF THE DEAF dist sys PSV 64 cm/s [facility] POINT OF CARE Right TE[employer]ER OF [employer] DEAF dist sys PSV 81 cm/s [facility] POINT [...] filedocumented in this encounter Care Teams Chief Of Production Relationship Specialty Start Date End Date Unknown, Provider, PCP - General 10/01/09 07/26/22 documented as of this encounter
--- OUTSIDE RECORDS SUMMARY | 2024-02-17 14:45 | XMS_ITS | Encounter Summary ---
Author Organization [facility] Address [address] [place] [address] Care Team Providers Care Japanese Interpreter Name Role Phone Esther Verma EDWARD Primary Care Provider [phone] Reason for Visit * Reason Onset Date Comments Pre-procedure 08/17/2022 Encounter Details Date Type Department Care Team (Late st Contact Info) Description 08/17/2022 Telephone [facility] [place] [address] Joseph Pacheco RN [address] [place] [address] Pre-procedure Social History Tobacco Use Types Packs/Day [...] Encounter - Joseph Pacheco RN - 08/17/2022 1635 EST Interventional Radiology Appt: Lung Biopsy, 2/ Phone call made to patient to review the following pre-procedure prep & information: I spoke with Edwige and relayed the following information: Check into registration (3rd floor) by 845AM (even if you have pre registered) ??? Most of our procedures utilize some form of sedation. Having a trailer truck driver to take you home is required. A bus or taxi is not allowed. It is preferable to have your trailer truck driver accompany you to the appointment. If [...] appt. pt verbalized understanding, all questions answered. [facility] RN phone number provided, should they have any further questions prior to this appointment. documented in this encounter Plan of Treatment Upcoming Encounters Date Type Department Care Team (Late st Contact Info) Description 06/08/2024 13:30 EST Appointment [facility] Radiology CT Outpatient - [address] [address] 06/08/2024 14:30 EST Office Visit [facility] Radiation Oncology - [address] [phone] Pj Bourne MD [address] [place] [address], [address] [place] [phone] documented as of this encounter Visit Diagnoses Not on filedocumented in this encounter Care Teams Japanese Interpreter Relationship Specialty Start Date End Date Esther Verma FNP 26 [facility] [address] [place] [phone] PCP - General 07/27/22 documented as of this encounter
--- OUTSIDE RECORDS SUMMARY | 2024-02-17 14:45 | XMS_ITS | Encounter Summary ---
Author Organization [facility] Address [address] [place] [address] Care Team Providers Care Money Market Clerk Name Role Phone Esther Verma EDWARD Primary Care Provider [phone] Reason for Visit * Reason Onset Date Comments Follow-up 08/03/2022 Encounter Details Date Type Department Care Team (Late st Contact Info) Description 08/03/2022 Telephone [facility] Pulmonology & [place] [address] Maribel Whitaker, MERARI Follow-up Social History Tobacco [...] Contact Info) Description 06/08/2024 13:30 EST Appointment [facility] Radiology CT Outpatient - [address] [id number] 06/08/2024 14:30 EST Office Visit [facility] Radiation Oncology - [address] [phone] Pj Bourne MD 111 [facility], Level [address] [place] [phone] documented as of this encounter Visit Diagnoses Not on filedocumented in this encounter Care Teams Money Market Clerk Relationship Specialty Start Date End Date Esther Verma FNP [address] [place] [address] [address] [place] [address] PCP - General 07/27/22 documented as of this encounter
--- OUTSIDE RECORDS SUMMARY | 2024-02-17 14:45 | XMS_ITS | Encounter Summary ---
Author Organization [facility] Address [address] [place] [address] Care Team Providers Care Certified Medication Technician Name Role Phone Esther Verma Primary Care Provider [phone] Reason for Visit * Reason Onset Date Comments Medication Management 07/27/2022 Encounter Details Date Type Department Care Team (Late st Contact Info) Description 07/27/[address] [facility] Pulmonology & [place] [address] Maribel Whitaker, tappet adjuster Management Social History Tobacco Use Types Packs/Day [...] Whitaker, RN - 07/27/2022 1224 EST Called [facility] as PCP Esther Verma [employer] TECH[employer] DEVELOPMENT MANAGER manages Eliquis. Confirmed it was ok to hold Eliquis 48 hours prior to procedure of bronchoscopy. Called patient to update. Informed her last dose of Eliquis should be Tuesday07/31/22. documented in this encounter Plan of Treatment Upcoming Encounters Date Type Department Care Team (Late st Contact Info) Description 06/08/2024 13:30 EST Appointment [facility] Radiology CT Outpatient - [address] [phone] 06/08/2024 14:30 EST Office Visit [facility] Radiation Oncology - [address] 677[address] Pj Bourne MD [address] [place] [address], Level [address] [place] [phone] documented as of this encounter Visit Diagnoses Not on filedocumented in this encounter Care Teams Certified Medication Technician Relationship Specialty Start Date End Date Esther Verma FNP 26 [facility] [address] [place] [address] PCP - General 07/27/22 documented as of this encounter
--- OUTSIDE RECORDS SUMMARY | 2024-02-17 14:45 | XMS_ITS | Encounter Summary ---
Author Organization [facility] Address [address] [place] [address] Care Team Providers Care Awake Overnight Counselor Name Role Phone Unknown, Provider Primary Care Provider [phone] Reason for Visit * Reason Comments New Patient Visit * Consult (Routine) - Authorization Not Required Specialty Diagnoses / Procedures Referred By Contdakotah t Referred To Contact Diagnoses Pulmonary nodule Maribel Dacosta MD [address] [place] [address] [address] [place] [address] [place] [address] [address] [place] [id number] Referral ID Status Reason Start Date Expiration Date Visits Requested Visits Authorized [id number] Authorization Not Required 1 1 Encounter Details Date Type Department Care Team (Late st Contact Info) Description 07/26/2022 12:00 EST Office Visit [facility] Pulmonology & Critical Care - [address] [phone] Price Delong MD MPH 111 [facility], Level [address] [place] [phone] Lung nodule (Primary Dx); Neoplasm of unspecified [...] procedure will be 08/03/22. Call with questions [phone] ask for Maribel documented in this encounter [...] was first noted when she presented to [facility] with atrial fibrillation and increasing pulmonary edema in June. This episode rapidly resolved with better heart rate control. The CT also noted enlarged mediastinal lymph nodes. She was seen by Dr. Glover at [facility] and subsequently underwent a PET-CT demonstrating [...] Her mother from a procedural complication at [facility]. She believes it was a percutaneous biopsy. Social Hx: Social History Tobacco Use ??? Smoking status: Former Types: Cigarettes Quit date: 07/28/2009 Years since quittin.0 ??? Smokeless tobacco: Never Lives at home with: Occupation: Previously worked at [employer] 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 No asbestos. Tobacco: [...] [facility] Rad[facility] Outpatient - [address] [phone] 06/08/2024 14:30 EST Office Visit [facility] Radiation Oncology - [address] [phone] Pj Bourne MD [address] [place] [address], Level [address] [place] [phone] documented as of this encounter Results * (ABNORMAL) PROTIME (07/26/2022 13:34 EST) I.N.R. 1.6(H) 0.9 - 1.1 Ratio 07/26/2022 14:49 EST [facility] Pro Time 18.3(H) 9.7 - 12.8 secs 07/26/2022 14:49 EST [facility] Blood VENOUS BLOOD / Unknown Venipuncture / Unknown 07/26/2022 13:34 EST 07/26/2022 14:24 EST Narrative [facility] - 07/26/2022 14:49 EST Moderate Intensity Coumadin INR = 2.0-3.0 Adjustments in anticoagulant therapy dose should be based on the INR and NOT on the Protime. Price Delong MD MPH HEMATOLOGY & PF4 ORDERABLES [facility] [address] [place] [address] * (ABNORMAL) COMPREHENSIVE METABOLIC PANEL (CMP) (07/26/2022 13:34 EST) Sodium 141 136 - 145 mmol/L 07/26/2022 15:12 [facility] Potassium 4.2 3.5 - 5.0 mmol/L 07/26/2022 15:12 [facility] Chloride 102 96 - 110 mmol/L 07/26/2022 15:12 [facility] CO2 Total 29 22 - 32 mmol/L 07/26/2022 15:12 [facility] Glucose 131(H) 70 - 100 mg/dL 07/26/2022 15:12 [facility] BUN 25 10 - 26 mg/dL 07/26/2022 15:12 [facility] Creatinine 1.10(H) 0.52 - 1.04 mg/dL 07/26/2022 15:12 [facility] eGFR 54(L) >60 mL/min/1.7 3m2 07/26/2022 15:12 [facility] Total Protein 7.6 6.3 - 8.2 g/dL 07/26/2022 15:12 [facility] Albumin 4.3 3.4 - 4.9 g/dL 07/26/2022 15:12 [facility] Alkaline Phosphatase 101 38 - 126 U/L 07/26/2022 15:12 [facility] AST 30 15 - 46 U/L 07/26/2022 15:12 [facility] ALT 24 <35 U/L 07/26/2022 15:12 [facility] Bilirubin, Total 1.4(H) <1.4 mg/dL 07/26/19 15:12 [facility] Calcium 9.5 8.5 - 10.5 mg/dL 07/26/2022 15:12 [facility] Albumin/Globulin Ratio 1.3 1.0 - 2.5 07/26/2022 15:12 [facility] Anion Gap 10 5 - 14 07/26/2022 15:12 [facility] Blood VENOUS BLOOD / Unknown Venipuncture / Unknown 07/26/2022 13:34 EST 07/26/2022 14:23 EST Price Delong MD MPH CHEMISTRY & BLOOD GAS ORDERABLES [facility] [address] [place] [address] * (ABNORMAL) COMPLETE BLOOD COUNT AND DIFFERENTIAL (07/26/2022 13:34 EST) WBC 9.38 4.00 - 12.40 K/cmm 07/26/2022 14:48 [facility] RBC 5.69(H) 3.86 - 5.04 M/cmm 07/26/2022 14:48 [facility] Hemoglobin 18.2(H) 11.6 - 15.2 gm/dL 07/26/2022 14:48 [facility] HCT 52.1(H) 34.9 - 44.4 % 07/26/2022 14:48 [facility] MCV 92 81 - 98 fl 07/26/2022 14:48 [facility] MCH 32.0 26.7 - 33.3 pg 07/26/2022 14:48 [facility] MCHC 34.9 32.1 - 35.9 gm/dL 07/26/2022 14:48 [facility] RDW-CV 14.6 <14.7 % 07/26/2022 14:48 [facility] RDW-SD 45.4 <50.4 fl 07/26/2022 14:48 [facility] PLT 237 141 - 377 K/cmm 07/26/2022 14:48 [facility] MPV 12.1 9.5 - 12.7 fl 07/26/2022 14:48 [facility] % Neutrophils 69.7 % 07/26/2022 14:48 [facility] % Lymphocytes 20.3 % 07/26/2022 14:48 [facility] % Monocytes 7.9 % 07/26/2022 14:48 [facility] % Eosinophils 1.3 % 07/26/2022 14:48 [facility] % Basophils 0.6 % 07/26/2022 14:48 [facility] % Immature Grans 0.2 % 07/26/19 14:48 [facility] Absolute Neutrophils 6.54 2.20 - 8.85 K/cmm 07/26/2022 14:48 [facility] Absolute Lymphocytes 1.90 1.09 - 3.30 K/cmm 07/26/2022 14:48 [facility] Absolute Monocytes 0.74 0.10 - 0.80 K/cmm 07/26/2022 14:48 [facility] Absolute Eosinophils 0.12 0.03 - 0.61 K/cmm 07/26/2022 14:48 [facility] ABS Basophils 0.06 0.01 - 0.11 K/cmm 07/26/2022 14:48 [facility] Absolute Immature Grans 0.02 0.00 - 0.06 K/cmm 07/26/2022 14:48 [facility] Type of Differential: Auto 07/26/2022 14:48 [facility] Blood VENOUS BLOOD / Unknown Venipuncture / Unknown 07/26/2022 13:34 EST 07/26/2022 14:22 EST Price Delong MD MPH PACKAGES & DNA PROBE ORDERABLES [facility] [address] [place] [address] documented in this encounter Visit Diagnoses Diagnosis [...] 05/21/20222023 added in this encounter Care Teams Awake Overnight Counselor Relationship Specialty Start Date End Date Unknown, Provider, PCP - General 10/01/09 07/26/22 documented as of this encounter
--- OUTSIDE RECORDS SUMMARY | 2024-02-17 14:45 | XMS_ITS | Encounter Summary ---
Author Organization [facility] Address [address] [place] [address] Care Team Providers Care Bulk Driver Name Role Phone Esther Verma EDWARD Primary Care Provider [phone] Encounter Details Date Type Department Care Team (Late st Contact Info) Description 07/27/[address] [facility] Pulmonology & Critical Care - [address] [address] Maribel Whitaker RN Social History [...] Description 06/08/2024 13:30 EST Appointment [facility] Radiology CT Outpatient - [address] [phone] 06/08/2024 14:30 EST Office Visit [facility] Radiation Oncology - [address] [address] Pj Bourne MD 111 [facility], Level [address] [place] [phone] documented as of this encounter Visit Diagnoses Not on filedocumented in this encounter Historical Medications * This list may reflect changes made after this encounter. Medication Sig Dispensed Refills Start Date End Date VITAMIN B COMPLEX ORAL Take by mouth. liraglutide (VICTOZA) 0.6 mg/0.1 mL (18 mg/3 mL) injectable pen Inject 1.8 mg into the skin daily. added in this encounter Care Teams Bulk Driver Relationship Specialty Start Date End Date Esther Verma FNP [address] [place] [address] [address] [place] [address] PCP - General 07/27/22 documented as of this encounter
--- OUTSIDE RECORDS SUMMARY | 2024-02-17 14:45 | XMS_ITS | Encounter Summary ---
Author Organization [facility] Address [address] [place] [address] Care Team Providers Care Hearth Feeder Name Role Phone Unknown, Provider Primary Care Provider Encounter Details Date Type Department Care Team (Late st Contact Info) Description 07/26/2022 13:15 EST Phlebotomy Only [facility] 2 Phlebotomy [address] [place] [address] Edger Hand, Acc Phlebotomy Lung nodule; Neoplasm of unspecified [...] Contact Info) Description 06/08/2024 13:30 EST Appointment [facility] Center Radiology CT Outpatient - [facility] [address] [place], [place] [address] 06/08/2024 14:30 EST Office Visit [facility] Radiation Oncology - Main [place] [address] [place] [address] Pj Bourne MD 111 [facility], [facility], Level 2 [place] [address] documented as of this encounter [...] 0.9 - 1.1 Ratio 07/26/2022 14:49 EST [facility] Pro Time 18.3(H) 9.7 - 12.8 secs 07/26/2022 14:49 EST [facility] Blood VENOUS BLOOD / Unknown Venipuncture / Unknown 07/26/2022 13:34 EST 07/26/2022 14:24 EST Narrative [facility] - 07/26/2022 14:49 EST Moderate Intensity Coumadin INR = 2.0-3.0 Adjustments in anticoagulant therapy dose should be based on the INR and NOT on the Protime. Price Delong MD MPH HEMATOLOGY & PF4 ORDERABLES [facility] [address] [place] [address] * (ABNORMAL) COMPREHENSIVE METABOLIC PANEL (CMP) (07/26/2022 13:34 EST) Sodium 141 136 - 145 mmol/L 07/26/2022 15:12 EST [facility] Potassium 4.2 3.5 - 5.0 mmol/L 07/26/2022 15:12 [facility] Chloride 102 96 - 110 mmol/L 07/26/2022 15:12 [facility] CO2 Total 29 22 - 32 mmol/L 07/26/2022 15:12 [facility] Glucose 131(H) 70 - 100 mg/dL 07/26/2022 15:12 [facility] BUN 25 10 - 26 mg/dL 07/26/2022 15:12 [facility] Creatinine 1.10(H) 0.52 - 1.04 mg/dL 07/26/2022 15:12 [facility] eGFR 54(L) >60 mL/min/1.7 3m2 07/26/2022 15:12 [facility] Total Protein 7.6 6.3 - 8.2 g/dL 07/26/2022 15:12 [facility] Albumin 4.3 3.4 - 4.9 g/dL 07/26/2022 15:12 [facility] Alkaline Phosphatase 101 38 - 126 U/L 07/26/2022 15:12 [facility] AST 30 15 - 46 U/L 07/26/2022 15:12 [facility] ALT 24 <35 U/L 07/26/2022 15:12 [facility] Bilirubin, Total 1.4(H) <1.4 mg/dL 07/26/19 15:12 [facility] Calcium 9.5 8.5 - 10.5 mg/dL 07/26/2022 15:12 [facility] Albumin/Globulin Ratio 1.3 1.0 - 2.5 07/26/2022 15:12 [facility] Anion Gap 10 5 - 14 07/26/2022 15:12 [facility] Blood VENOUS BLOOD / Unknown Venipuncture / Unknown 07/26/2022 13:34 EST 07/26/2022 14:23 EST Price Delong MD MPH CHEMISTRY & BLOOD GAS ORDERABLES [facility] [address] [place] [address] * (ABNORMAL) COMPLETE BLOOD COUNT AND DIFFERENTIAL (07/26/2022 13:34 EST) WBC 9.38 4.00 - 12.40 K/cmm 07/26/2022 14:48 [facility] RBC 5.69(H) 3.86 - 5.04 M/cmm 07/26/2022 14:48 [facility] Hemoglobin 18.2(H) 11.6 - 15.2 gm/dL 07/26/2022 14:48 [facility] HCT 52.1(H) 34.9 - 44.4 % 07/26/2022 14:48 [facility] MCV 92 81 - 98 fl 07/26/2022 14:48 [facility] MCH 32.0 26.7 - 33.3 pg 07/26/2022 14:48 [facility] MCHC 34.9 32.1 - 35.9 gm/dL 07/26/2022 14:48 [facility] RDW-CV 14.6 <14.7 % 07/26/2022 14:48 [facility] RDW-SD 45.4 <50.4 fl 07/26/2022 14:48 [facility] PLT 237 141 - 377 K/cmm 07/26/2022 14:48 [facility] MPV 12.1 9.5 - 12.7 fl 07/26/2022 14:48 [facility] % Neutrophils 69.7 % 07/26/2022 14:48 [facility] % Lymphocytes 20.3 % 07/26/2022 14:48 [facility] % Monocytes 7.9 % 07/26/2022 14:48 [facility] % Eosinophils 1.3 % 07/26/2022 14:48 [facility] % Basophils 0.6 % 07/26/2022 14:48 [facility] % Immature Grans 0.2 % 07/26/19 14:48 [facility] Absolute Neutrophils 6.54 2.20 - 8.85 K/cmm 07/26/2022 14:48 [facility] Absolute Lymphocytes 1.90 1.09 - 3.30 K/cmm 07/26/2022 14:48 [facility] Absolute Monocytes 0.74 0.10 - 0.80 K/cmm 07/26/2022 14:48 [facility] Absolute Eosinophils 0.12 0.03 - 0.61 K/cmm 07/26/2022 14:48 [facility] ABS Basophils 0.06 0.01 - 0.11 K/cmm 07/26/2022 14:48 [facility] Absolute Immature Grans 0.02 0.00 - 0.06 K/cmm 07/26/2022 14:48 [facility] Type of Differential: Auto 07/26/2022 14:48 [facility] Blood VENOUS BLOOD / Unknown Venipuncture / Unknown 07/26/2022 13:34 EST 07/26/2022 14:22 EST Price Delong MD MPH PACKAGES & DNA PROBE ORDERABLES Performing Organization Address City/State/[facility] Co de Phone Number [facility] [address] [place] [address] documented in this encounter Visit Diagnoses Diagnosis Lung nodule Solitary pulmonary nodule 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
--- OUTSIDE RECORDS SUMMARY | 2024-02-17 14:45 | XMS_ITS | Encounter Summary ---
Author Organization [facility] Address [address] [place] [address] Care Team Providers Care Central Office Associate Name Role Phone Esther Verma EDWARD Primary Care Provider [phone] Reason for Visit * Reason Onset Date Comments Appointment Related 08/05/2022 Encounter Details Date Type Department Care Team (Late st Contact Info) Description 08/05/2022 Telephone [facility] Interventional Radiology - [address] [address] Roberto Cardoza, PARemiC [address] [place] [address], [address] [place] [phone] Appointment Related Social History Tobacco Use Types [...] outpatient CT RUL BX with [facility]al radiologyat [facility]. Patient will be coming in on 08/23 at 9:00 AM The following details were reviewed with patient to ensure procedure completed on scheduled date: -Patient understands that they will need a chain saw driver for this procedure. -Patient understands that [...] can be addressed to Interventional Radiology Department [phone] Ext. 1 Patient verbalized understanding and agrees with Plan of Care. No cognitive barriers were identified during this conversation & they have our contact number to call with questions. Jennifer Bloom documented in this encounter Plan of Treatment Upcoming Encounters Date Type Department Care Team (Late st Contact Info) Description 06/08/2024 13:30 EST Appointment [facility] Radiology CT Outpatient - [address] [address] 06/08/2024 14:30 EST Office Visit [facility] Radiation Oncology - [address] [phone] Pj Bourne MD [address] [place] [address], [address] [place] [phone] documented as of this encounter Visit Diagnoses Not on filedocumented in this encounter Care Teams Central Office Associate Relationship Specialty Start Date End Date Esther Verma FNP 26 [facility] [address] [place] [address] PCP - General 07/27/22 documented as of this encounter
--- OUTSIDE RECORDS SUMMARY | 2024-02-17 14:45 | XMS_ITS | Encounter Summary ---
Author Organization [facility] Address [address] [place] [address] Care Team Providers Care Physiotherapy Practice Manager Name Role Phone Esther Verma EDWARD Primary Care Provider [phone] Reason for Visit * Reason Onset Date Comments Follow-up 07/28/2022 Encounter Details Date Type Department Care Team (Late st Contact Info) Description 07/28/2022 Telephone [facility] Pulmonology & [place] [address] Maribel Whitaker, RN Follow-up Social History Tobacco [...] 07/28/2022 1619 EST LMOM at cardiology at [facility] asking for most recent TTE report be faxed to pulmonary clinic. documented in this encounter Plan of Treatment Upcoming Encounters Date Type Department Care Team (Late st Contact Info) Description 06/08/2024 13:30 EST Appointment [facility] Radiology CT Outpatient - [address] [address] 06/08/2024 14:30 EST Office Visit [facility] Cancer Center Radiation Oncology - [address] [phone] Pj Bourne MD 111 [facility], [facility], Level 2 [place] [phone] documented as of this encounter Visit Diagnoses Not on filedocumented in this encounter Care Teams Physiotherapy Practice Manager Relationship Specialty Start Date End Date Esther Verma FNP [address] [facility] [address] [place] [phone] PCP - General 07/27/22 documented as of this encounter
--- OUTSIDE RECORDS SUMMARY | 2024-02-17 14:45 | XMS_ITS | Encounter Summary ---
Author Organization [facility] Address [address] [place] [address] Care Team Providers Care Wallcovering Texturer Name Role Phone Unknown, Provider Primary Care Provider [phone] Esther Verma Primary Care Provider [phone] Pj Bourne MD Unavailable [phone] Reason for Visit * Reason Onset Date Comments Provider Referred 07/23/2022 Returning Call 07/23/2022 Encounter Details Date Type Department Care Team (Late st Contact Info) Description 07/23/2022 Telephone [facility] Pulmonology & Critical Care - [address] [phone] Maribel Whitaker, RN Provider Referred; Returning Call [...] [facility] Radiology CT Outpatient - [address] [address] 06/08/2024 14:30 EST Office Visit [facility] Radiation Oncology - [facility] [address] [place], [place] [address] Pj Bourne MD [address] [place] [address], Level 2 [place] [phone] documented as of this encounter Visit Diagnoses Not on filedocumented in this encounter Care Teams Wallcovering Texturer Relationship Specialty Start Date End Date Unknown, Provider, PCP - General 10/01/09 07/26/22 Esther Verma FNP [address] [place] [phone] PCP - General 07/27/22 Pj Bourne MD [address] [place] [address], [facility] [address] [place] [phone] Radiation Oncology 10/21/22 documented as of this encounter
--- OUTSIDE RECORDS SUMMARY | 2024-02-17 14:45 | XMS_ITS | Encounter Summary ---
Author Organization [facility] Address [address] [place] [address] Care Team Providers Care Motor Winder Name Role Phone Unknown, Provider Primary Care Provider Encounter Details Date Type Department Care Team (Late st Contact Info) Description 09/30/2009 Results Only [facility] Family Medicine [address] [address] Kamilla Silvestre MD [address] [place] [phone] Social History Tobacco Use Types Packs/Day Years [...] [facility] Radiology CT Outpatient - [address] [address] 06/08/2024 14:30 EST Office Visit [facility] Radiation Oncology - [address] [address] Pj Bourne MD 111 [facility], [facility], Level 2 [place] [phone] documented as of this encounter Procedures Procedure [...] ? EDWIGE BYERS ? Accession #: ? [id number] ? : ? 1950 (Age: 58) ??F [...] Silvestre MD PATHOLOGY ORDERABLES Performing Organization Address [facility]/State/ZIP Co de Phone Number [facility] [address] [place] [address] documented in this encounter Visit Diagnoses Not on filedocumented in this encounter Care Teams Motor Winder Relationship Specialty Start Date End Date Unknown, Provider, PCP - General 10/01/09 07/26/22 documented as of this encounter
--- OUTSIDE RECORDS SUMMARY | 2024-02-17 14:45 | XMS_ITS | Encounter Summary ---
Author Organization [facility] Address [address] [place] [address] Care Team Providers Care Computer Support Technician Name Role Phone Unknown, Provider Primary Care Provider [phone] Esther Verma Primary Care Provider [phone] Pj Bourne MD Unavailable [phone] Encounter Details Date Type Department Care Team (Late st Contact Info) Description 09/12/2020 Lab Requisition [facility] Pathology & Laboratory Medicine - [address] [address] La Nena Skelton [address] [place] [phone] Encounter for other general examination Social History [...] Contact Info) Description 06/08/2024 13:30 EST Appointment [facility] Radiology CT Outpatient - [facility] [address] [place], [place] [address] 06/08/2024 14:30 EST Office Visit [facility] Cancer Center Radiation Oncology - [facility] [address] [place], [place] [phone] Pj Bourne MD 111 [facility], [facility], Level [address] [place] [address] documented as of this encounter [...] BIOPSY: - Benign endometrial polyp. 09/15/2020 17:02 [facility] Diagnosis Comment Deeper sections have been evaluated from endometrial curettage specimen (B). 09/15/2020 17:02 [facility] Attestation By the signature below, the attending physician certifies that they have 1) personally conducted a gross and/or microscopic examination of the described specimen(s), and/or personally interpreted the results of laboratory testing of the described specimen(s), and 2) personally rendered or confirmed the above diagnosis. 09/15/2020 17:02 [facility] at 1702 Clinical History Postmenopausal bleeding 09/15/2020 17:02 [facility] Gross Description A. Received [...] BELINDA FITZPATRICK(ASCP) 09/12/2020 16:38 09/15/2020 17:02 EST [facility] Performing Lab [facility] 09/15/2020 17:02 EST [facility] Scanned Images 09/15/2020 17:02 EST [facility] Tissue ENTIRE ENDOMETRIUM / Unknown 09/11/2020 9:14 EST 09/12/2020 16:25 EST Tissue specimen (specimen) ENDOMETRIAL STRUCTURE / Unknown 09/11/2020 9:14 EST 09/12/2020 16:25 EST Tissue specimen (specimen) ENDOMETRIAL STRUCTURE / Unknown 09/11/2020 9:14 EST 09/12/2020 16:25 EST [place] Nena Skelton PATHOLOGY ORDERABLES [facility] [address] [place] [address] documented in this encounter Visit Diagnoses Diagnosis Encounter for other general examination documented in this encounter Care Teams Computer Support Technician Relationship Specialty Start Date End Date Unknown, MD Katy PCP - General 10/01/09 07/26/22 Esther Verma FNP [address] [phone] PCP - General 07/27/22 Pj Bourne MD 111 [facility], Level [address] [place] [phone] Radiation Oncology 10/21/22 documented as of this encounter
--- OUTSIDE RECORDS SUMMARY | 2024-02-17 14:45 | XMS_ITS | Encounter Summary ---
Author Organization [facility] Address [address] [place] [address] Care Team Providers Care Auto Battery Builder Name Role Phone Esther Verma EDWARD Primary Care Provider [phone] Reason for Visit * Reason Onset Date Comments Coordination Of Care 08/04/2022 Encounter Details Date Type Department Care Team (Late st Contact Info) Description 08/04/2022 Telephone [facility] Interventional Radiology - [facility] [address] [place] [address] Joseph Pacheco, RN [address] [place] [address] Coordination Of Care Social History Tobacco Use [...] is scheduled 08/21 or after. Call to [facility] with AC management request, I spoke with [employer] who will review Radha LEON and get back to us. documented in this encounter Plan of Treatment Upcoming Encounters Date Type Department Care Team (Late st Contact Info) Description 06/08/2024 13:30 EST Appointment [facility] Radiology CT Outpatient - [address] [phone] 06/08/2024 14:30 EST Office Visit [facility] Radiation Oncology - [address] [address] Pj Bourne MD 111 [facility], [facility], Level [address] [place] [phone] documented as of this encounter Visit Diagnoses Not on filedocumented in this encounter Care Teams Auto Battery Builder Relationship Specialty Start Date End Date Esther Verma FNP 26 [facility] [address] [place] [address] PCP - General 07/27/22 documented as of this encounter
--- OUTSIDE RECORDS SUMMARY | 2024-02-17 14:45 | XMS_ITS | Encounter Summary ---
Author Organization [facility] Address [address] [place] [address] Care Team Providers Care Distillery Supervisor Name Role Phone Esther Verma EDWARD Primary Care Provider [phone] Reason for Referral * Radiology Services (Routine/Next Available) - Authorization Not Required Specialty Diagnoses / Procedures Referred By Contac t Referred To Contact Diagnoses Lung nodule Procedures IR BIOPSY Price Delong MD MPH [address] [place] [phone] [facility] Referral ID Status Reason Start Date Expiration Date Visits Requested Visits Authorized [id number] Authorization Not Required 08/02/2022 1 1 Reason for Visit * Reason Onset Date Comments Follow-up 08/02/2022 Encounter Details Date Type Department Care Team (Late st Contact Info) Description 08/02/2022 Telephone [facility] Pulmonology & Critical Care - [place] [phone] Price Delong MD MPH [address] [place] [phone] Follow-up Social History Tobacco Use Types [...] - Price Delong MD MPH - 08/02/2022 9443 EST Spoke with Edwige via phone. Relayed conversation with Dr. Galeano. Given elevated PA pressures, we have recommended a percutaneous biopsy. documented in this encounter Plan of Treatment Upcoming Encounters Date Type Department Care Team (Late st Contact Info) Description 06/08/2024 13:30 EST Appointment [facility] Radiology CT Outpatient - [address] [phone] 06/08/2024 14:30 EST Office Visit [facility] Cancer Center Radiation Oncology - [address] [address] Pj Bourne MD [address] [place] [address], [address] [place] [address] documented as of this encounter [...] ??I personally spent 30 minutes in continuous [id number] attendance with the patient during the administration [...] saturation. I personallyspent 30 minutes in continuous [id number] attendance with the patientduring the administration of [...] nodule documented in this encounter Care Teams Distillery Supervisor Relationship Specialty Start Date End Date Esther Verma FNP 26 [facility] [address] [place] [address] PCP - General 07/27/22 documented as of this encounter
--- OUTSIDE RECORDS SUMMARY | 2024-02-17 14:45 | XMS_ITS | Encounter Summary ---
Author Organization [facility] Address [address] [place] [address] Care Team Providers Care Command Post Superintendent Name Role Phone Unknown, Provider Primary Care Provider Reason for Visit * (Routine/Next Available) - Receiving Office to Obtain Authorization Specialty Diagnoses / Procedures Referred By Chau car Referred To Contact Procedures PET OUTSIDE IMAGES Imaging, External Referral ID Status Reason Start Date Expiration Date Visits Requested Visits Authorized [id number] Receiving Office to Obtain Authorization 07/23/2022 1 1 Encounter Details Date Type Department Care Team (Latest Contact Info) Description 07/13/2022 - 07/13/2022 23:59 EST Hospital Encounter [facility] Radiology - Main [place] [address] [place] [address] Discharge Disposition: Home or Self Care Social [...] [facility] Radiology CT Outpatient - [facility] [address] [place], [place] [phone] 06/08/2024 14:30 EST Office Visit [facility] Center Radiation Oncology - [facility] [address] [place], [place] [phone] Pj Bourne MD 111 [facility], Level [address] [place] [address] documented as of this encounter [...] on filedocumented in this encounter Care Teams Command Post Superintendent Relationship Specialty Start Date End Date Unknown, Provider, PCP - General 10/01/09 07/26/22 documented as of this encounter
--- OUTSIDE RECORDS SUMMARY | 2024-02-17 14:45 | XMS_ITS | Encounter Summary ---
Author Organization [facility] Address [address] [place] [address] Care Team Providers Care Revenue Stamper Name Role Phone Unknown, Provider Primary Care Provider [phone] Esther Verma Primary Care Provider Pj Bourne MD Unavailable [phone] Encounter Details Date Type Department Care Team (Late st Contact Info) Description 03/05/2022 Lab Requisition [facility] Pathology & Laboratory Medicine - [address] [address] Outr Resulting Lab, Provider Social History Tobacco [...] (Late st Contact Info) Description 06/08/2024 13:30 [facility] Radiology CT Outpatient - [facility] [address] [place], [place] [address] 06/08/2024 14:30 EST Office Visit [facility] Radiation Oncology - [address] [address] Pj Bourne MD 111 [facility], [facility], Level [address] [place] [phone] documented as of this encounter Procedures Procedure [...] Gibbs MD 03/09/2022 1332 03/09/2022 15:[address] [facility] Blood VENOUS BLOOD / Unknown 03/05/2022 11:45 EDT 03/05/2022 21:22 EDT Provider Outr Resulting Lab CHEMISTRY & BLOOD GAS ORDERABLES [facility] [address] [place] [address] * SPEP, INCLUDES QUANTITATION OF MONOCLONAL SPIKE PERFORMABLE (03/05/2022 11:45 EDT) Albumin % 57.1 55.8 - 66.1 % 03/09/2022 15:[address] [facility] Albumin g/dL 3.7 3.6 - 5.2 g/dL 03/09/2022 15:12 [facility] Alpha-1 % 4.6 2.9 - 4.9 % 03/09/2022 15:12 [facility] Alpha-1 g/dL 0.30 0.15 - 0.40 g/dL 03/09/2022 15:12 [facility] Alpha-2 % 11.7 7.1 - 11.8 % 03/09/2022 15:12 [facility] Alpha-2 g/dL 0.70 0.50 - 1.00 g/dL 03/09/2022 15:12 [facility] Beta % 11.4 8.4 - 13.1 % 03/09/2022 15:12 [facility] Beta g/dL 0.70 0.60 - 1.20 g/dL 03/09/2022 15:12 [facility] Gamma % 15.2 11.1 - 18.8 % 03/09/2022 15:12 [facility] Gamma g/dL 1.00 0.60 - 1.60 g/dL 03/09/2022 15:12 [facility] SPEP Comment Suspicious pattern seen on protein electrophoresis, immunotyping added by reflex. 03/09/2022 15:12 [facility] Comment:See scanned/suppleme ntary report. Total Protein 6.4 6.3 - 8.2 g/dL 03/09/2022 15:12 [facility] Blood VENOUS BLOOD / Unknown 03/05/2022 11:45 EDT 03/05/2022 21:22 EDT Provider Outr Resulting Lab CHEMISTRY & BLOOD GAS ORDERABLES [facility] [address] [place] [address] * PROTEIN, TOTAL (03/05/2022 11:45 EDT) Blood VENOUS BLOOD / Unknown 03/05/2022 11:45 EDT 03/05/2022 21:22 EDT Provider Outr Resulting Lab CHEMISTRY & BLOOD GAS ORDERABLES [facility] [address] [place] [address] documented in this encounter Visit Diagnoses Not on filedocumented in this encounter Care Teams Revenue Stamper Relationship Specialty Start Date End Date Unknown, Provider, PCP - General 10/01/09 07/26/22 Esther Verma FNP [address] [phone] PCP - General 07/27/22 Pj Bourne MD 111 [facility], Level [address] [place] [phone] Radiation Oncology 10/21/22 documented as of this encounter
--- OUTSIDE RECORDS SUMMARY | 2024-02-17 14:45 | XMS_ITS | Encounter Summary ---
Author Organization [facility] Address [address] [place] [address] Care Team Providers Care Cephalometric Technician Name Role Phone Unknown, Provider Primary Care Provider Reason for Referral * Vascular Lab (Routine) - Closed Specialty Diagnoses / Procedures Referred By Chau car Referred To Contact Diagnoses Claudication (HCC-CMS) Procedures US LOWER ARTERIAL DUPLEX Elmo Meneses MD [address] [place] [phone] Referral ID Status Reason Start Date Expiration Date Visits Re quested Visits Authorized [id number] Closed 01/11/2020 1 1 Encounter Details Date Type Department Care Team (Late st Contact Info) Description 01/11/2020 Transcribe Orders [facility] Vascular Surgery - [address] [id number] Elmo Meneses MD [address] [place] [phone] Claudication (HCC-CMS) (Primary Dx) Social History Tobacco Use Types Packs/Day Years Used Date Smoking Tobacco: Never Assessed Sex and Gender Information Value Date Recorded Sex Assigned at Not on file Gender Identity Not on file Sexual Orientation Not on file documented as of this encounter Plan of Treatment Upcoming Encounters Date Type Department Care Team (Late st Contact Info) Description 06/08/2024 13:30 [facility] Radiology CT Outpatient - [place] [address] [place] [address] 06/08/2024 14:30 EST Office Visit [facility] Cancer Center Radiation Oncology - [address] [phone] Pj Bourne MD 111 [facility], [facility], Level [address] [place] [address] documented as of this encounter Procedures Procedure Name Priority Date/Time Associated Diagnosis Comments US LOWER ARTERIAL DUPLEX BILATERAL WITH SHARYN Routine 03/28/2020 13:48 EDT Claudication ([facility]) documented in this encounter Results * US [...] -53 cm/s [facility] POINT OF CARE Left RECOVERY RN prox sys PSV 72 cm/s [facility] POINT OF CARE Left RECOVERY RN dist sys PSV 64 cm/s [facility] POINT OF CARE Right RECOVERY RN dist sys PSV 81 cm/s [facility] POINT [...] in this encounter Visit Diagnoses Diagnosis Claudication ([facility])- Primary Peripheral vascular disease, unspecified documented in this encounter Care Teams Cephalometric Technician Relationship Specialty Start Date End Date Unknown, Provider, PCP - General 10/01/09 07/26/22 documented as of this encounter
--- OUTSIDE RECORDS SUMMARY | 2024-02-17 14:45 | XMS_ITS | Encounter Summary ---
Author Organization [facility] Address [address] [place] [address] Care Team Providers Care Spray Technician Name Role Phone Unknown, Provider Primary Care Provider [phone] Encounter Details Date Type Department Care Team (Late st Contact Info) Description 07/26/2022 Prep for Procedure [facility] Pulmonology & Critical Care - [address] [phone] Karime Vo, [employer] ENFORCEMENT OFFICER [address] [place] [address], Level [address] [place] [address] Lung nodule (Primary Dx) Social [...] Appointment [facility] Center Radiology CT Outpatient - [address] [address] 06/08/2024 14:30 EST Office Visit [facility] Cancer Center Radiation Oncology - [address] [address] Pj Bourne MD [address] [place] [address], [facility], [address] [place] [phone] documented as of this encounter Visit Diagnoses Diagnosis Lung nodule- Primary Solitary pulmonary nodule documented in this encounter Care Teams Spray Technician Relationship Specialty Start Date End Date Unknown, Provider, PCP - General 10/01/09 07/26/22 documented as of this encounter
--- OUTSIDE RECORDS SUMMARY | 2024-02-17 14:45 | XMS_ITS | Encounter Summary ---
Author Organization [facility] Address [address] [place] [address] Care Team Providers Care Health Care Facility Administrator Name Role Phone Esther Verma EDWARD Primary Care Provider [phone] Encounter Details Date Type Department Care Team (Late st Contact Info) Description 08/03/2022 23:59 EST Anesthesia Event [facility] OR [address] [place], [place] [phone] Glynn Edward MD 111 [facility], Level [address] [place] [phone] Anesthesia Record Procedure Summary Procedure Name Responsible [...] Contact Info) Description 06/08/2024 13:30 EST Appointment [facility] Radiology CT Outpatient - [address] [phone] 06/08/2024 14:30 EST Office Visit [facility] Radiation Oncology - [address] [address] Pj Bourne MD 111 [facility], [facility], [address] [place] [phone] documented as of this encounter Visit Diagnoses Not on filedocumented in this encounter Care Teams Health Care Facility Administrator Relationship Specialty Start Date End Date Esther Verma FNP [address] [place] [phone] PCP - General 07/27/22 documented as of this encounter
--- OUTSIDE RECORDS SUMMARY | 2024-02-17 14:45 | XMS_ITS | Encounter Summary ---
Author Organization [facility] Address [address] [place] [address] Care Team Providers Care Apprentice Pattern Maker Name Role Phone Unknown, Provider Primary Care Provider [phone] Reason for Visit * (Routine/Next Available) - Receiving Office to Obtain Authorization Specialty Diagnoses / Procedures Referred By Chau car Referred To Contact Procedures CT OUTSIDE IMAGES CHEST Imaging, External Referral ID Status Reason Start Date Expiration Date Visits Requested Visits Authorized [id number] Receiving Office to Obtain Authorization 07/21/2022 1 1 Encounter Details Date Type Department Care Team (Latest Contact Info) Description 05/13/2022 - 05/13/2022 23:59 EDT Hospital Encounter [facility] Secondary Reads [place] Discharge Disposition: [...] Info) Description 06/08/2024 13:30 EST Appointment [facility] Radiology CT Outpatient - [address] [address] 06/08/2024 14:30 EST Office Visit [facility] Radiation Oncology - [address] [address] Pj Bourne MD 111 [facility], [facility], Level 2 [place] [address] documented as of this encounter [...] on filedocumented in this encounter Care Teams Apprentice Pattern Maker Relationship Specialty Start Date End Date Unknown, Provider, PCP - General 10/01/09 07/26/22 documented as of this encounter
--- OUTSIDE RECORDS SUMMARY | 2024-02-17 14:45 | XMS_ITS | Encounter Summary ---
Author Organization [facility] Address [address] [place] [address] Care Team Providers Care Marketing Researcher Name Role Phone Unknown, Provider Primary Care Provider [phone] Reason for Visit * Reason Comments New Patient Visit PVD * Referral (Routine) - Closed Specialty Diagnoses / Procedures Referred By Contdakotah t Referred To Contact Vascular Surgery Diagnoses Pain in leg, unspecified Esther Verma FNP 26 [facility] [address] [place] [address] Surgery [address] [place] [address] Referral ID Status Reason Start Date Expiration Date Visits Re quested Visits Authorized [id number] Closed 1 1 Encounter Details Date Type Department Care Team (Late st Contact Info) Description 03/28/2020 14:00 EDT Office Visit [facility] Vascular Surgery - [address] [phone] Puja Bella MD 111 [facility], Level 5 [place] [phone] Pain in both feet (Primary Dx) Social [...] Bella III, MD - 03/28/2020 1400 EDT [facility] Division of Vascular Surgery History [...] arm, BP Patient Position: Sitting) Pulse 93 [id number] General: Alert, active, oriented x 3, NAD [...] [facility] Radiology CT Outpatient - [address] [address] 06/08/2024 14:30 EST Office Visit [facility] Cancer Center Radiation Oncology - [address] [address] Pj Bourne MD [address] [place] [address], [facility], Level 2 [place] [address] documented as of this encounter [...] 02/14/2024 added in this encounter Care Teams Marketing Researcher Relationship Specialty Start Date End Date Unknown, Provider, PCP - General 10/01/09 07/26/22 documented as of this encounter
--- OUTSIDE RECORDS SUMMARY | 2024-02-17 14:45 | XMS_ITS | Encounter Summary ---
Author Organization [facility] Address [address] [place] [address] Care Team Providers Care Respiratory Manager Name Role Phone Unknown, Provider Primary Care Provider [phone] Esther Verma Primary Care Provider [phone] Pj Bourne MD Unavailable [phone] Encounter Details Date Type Department Care Team (Late st Contact Info) Description 07/19/2019 Lab Requisition [facility] Pathology & Laboratory Medicine - [address] [address] Jarrell Page MD [address] [place] [address] Encounter for other general examination Social History [...] Description 06/08/2024 13:30 EST Appointment [facility] Radiology CT Outpatient - [address] [id number] 06/08/2024 14:30 EST Office Visit [facility] Center Radiation Oncology - [address] [address] Pj Bourne MD [address] [place] [address], [facility], [address] [place] [phone] documented as of this encounter Procedures Procedure Name Priority Date/Time Associated Diagnosis Comments SURGICAL PATHOLOGY Today 07/19/2019 15 :30 EST Encounter for other general examination documented in this encounter Results * SURGICAL PATHOLOGY (07/19/2019 15:30 EST) Final Diagnosis A. ENDOMETRIUM, BIOPSY: - Predominantly blood. - Rare fragments of atrophic endometrium. - Fragments of benign endocervical epithelium. 07/24/2019 12:59 EST [facility] at 1259 Diagnosis Comment Tetryl Boiling Tub Operator slides of this case were reviewed at the intradepartmental consultation conference. 07/24/2019 12:59 EST [facility] Clinical History PMB 07/24/2019 12:59 EST [facility] Gross Description A. Received in formalin labelled with proper patient identification (initials B, G) and EM (endometrium) is an aggregate of hemorrhage (4.2 x 3.2 x 1.2 cm). The specimen is submitted entirely in A1-A9. 0 1 / 0 3 / 2 0 2 0 0 8 : 2 5 07/24/2019 12:59 EST [facility] Resident/Fell ow: Reinaldo Bowen DO 07/24/2019 12:59 EST [facility] Scanned Images 07/24/2019 12:59 EST [facility] Tissue ENTIRE ENDOMETRIUM / Unknown 07/19/2019 15:30 EST 07/19/2019 22:47 EST Jarrell Page MD PATHOLOGY ORDERABLES [facility] [address] [place] [address] documented in this encounter Visit Diagnoses Diagnosis Encounter for other general examination documented in this encounter Care Teams Respiratory Manager Relationship Specialty Start Date End Date Unknown, Provider, PCP - General 10/01/09 07/26/22 Esther Verma FNP [address] [place] [address] [place] [phone] PCP - General 07/27/22 Pj Bourne MD [address] [place] [address], [facility] [address] [place] [phone] Radiation Oncology 10/21/22 documented as of this encounter
--- OUTSIDE RECORDS SUMMARY | 2024-02-17 14:45 | XMS_ITS | Encounter Summary ---
Author Organization [facility] Address [address] [place] [address] Care Team Providers Care Soils Analyst Name Role Phone Esther Verma EDWARD Primary Care Provider [phone] Reason for Visit * Reason Onset Date Comments Appointment Related 07/29/2022 Encounter Details Date Type Department Care Team (Late st Contact Info) Description 07/29/2022 Telephone [facility] Pulmonology & Critical Care - [address] [phone] Price Delong MD [facility] 111 [facility], Level [address] [place] [address] Appointment Related Social History Tobacco [...] Miscellaneous Notes * Telephone Encounter - Curtis lElison Jr - 07/29/2022 1403 EST Patient answered [...] - You will NEED TO BRING A SCARFER OPERATOR. Please make sure you have someone accompany [...] Coumadin, Warfarin, etc.) please speak with your blender about this. Your appointment date: 08.03.2022 and time: 1:20PM with an arrival time of 11:20AM. Please check in at Registration on the 3rd floor of the [facility] building. You will then proceed to Surgery and Procedures located on the 3rd floor [facility]. Please call the PFT Lab at [phone] or the Pulmonary department at [phone] if you have any concerns, questions or need clarification about any of the above instructions. Thank you. documented in this encounter Plan of Treatment Upcoming Encounters Date Type Department Care Team (Late st Contact Info) Description 06/08/2024 13:30 EST Appointment [facility] Radiology CT Outpatient - [address] [address] 06/08/2024 14:30 EST Office Visit [facility] Center Radiation Oncology - [address] [address] Pj Bourne MD [address] [place] [address], Level [address] [place] [phone] documented as of this encounter Visit Diagnoses Not on filedocumented in this encounter Care Teams Soils Analyst Relationship Specialty Start Date End Date Esther Verma FNP [address] [place] [address] [address] [place] [phone] PCP - General 07/27/22 documented as of this encounter
--- NOTE | 2024-03-07 12:40 | W.NOCTURNAL ---
Date of service: 02/17/24 Time of Service: 18:00 Nocturnal Oximetry Note: Overnight oximetry on room air and no BiPAP. Patient demonstrated 51 minutes below 88%. Lowest O2 saturation of 86%.
== END 2024-02-17 14:38 | disposition home or self-care (01) ==
LOC: RT 14:40
PROVIDERS: PCP Nurse Practitioner Family; Visit Provider Internal Medicine Critical Care Medicine
DX: J43.8 Other emphysema (principal)
CPT/HCPCS: 00123; 94762

== ENCOUNTER 2024-08-01 14:39 | Outpatient (REF) | payer MEDICARE, SELFPAY ==
[2024-08-01 14:37] LABS: Abs Immature Grans 0.03 10^3/uL (0.0-0.06); Absolute Basophil Count 0.06 10^3/uL (0.0-0.2); Absolute Eosinophil Count 0.09 10^3/uL (0.0-0.7); Absolute Lymphocyte Count 1.38 10^3/uL (1.2-3.4); Absolute Monocyte Count 0.67 10^3/uL (0.1-0.8); Absolute Neutrophil Count 8.01 10^3/uL (1.2-6.7); Basophils % 0.6 %; Eosinophils % 0.9 %; HCT 49.1 % (36.0-46.0); HGB 17.9 g/dL (11.2-15.7); Immature Grans % 0.3 %; Lymphocytes % 13.5 %; MCH 34.5 pg (27.0-33.0); MCHC 36.5 % (32.0-36.0); MCV 95 fL (80-95); MPV 11.8 fL (8.0-11.0); Monocytes % 6.5 %; Neutrophils % 78.2 %; Platelet Count 247 10^3/uL (130-400); RBC 5.19 10^6/uL (3.93-5.22); RDW 13.1 % (11.7-14.6); RDW-SD 44.1 fL; WBC 10.24 10^3/uL (4.4-10.8)
[2024-08-01 14:51] LABS: ALT 22 U/L (14-59); AST 19 U/L (15-37); Albumin 3.7 g/dL (3.4-5.0); Alkaline Phosphatase 127 U/L (46-116); Anion Gap 10.1 mmol/L (3-11); BUN 26 mg/dL (7-18); CO2 29.9 mmol/L (21.0-32.0); CREATININE 1.6 mg/dL (0.55-1.02); Calcium 9.6 mg/dL (8.5-10.1); Calculated LDL 222 mg/dL (<100); Chloride 100 mmol/L (98-107); Cholesterol 322 mg/dL (<200); Estimated GFR 33.84 (mL/min/1.73m2); Glucose 220 mg/dL (74-106); HDL Cholesterol 46 mg/dL (40-60); Sodium 140 mmol/L (136-145); Total Protein 7.6 g/dL (6.4-8.2); Triglyceride 271 mg/dL (<150)
[2024-08-01 15:14] LABS: COMMENT (LAB VIEW ONLY) 76.83 mg/dL; Microalb ug/mg Crea 81.6 ug/mg Cr
== END 2024-08-01 14:40 | disposition home or self-care (01) ==
LOC: NCHCN 14:39
PROVIDERS: PCP Nurse Practitioner Family; Visit Provider Nurse Practitioner Family
DX: E78.5 Hyperlipidemia, unspecified (principal); C34.91 Malignant neoplasm of unspecified part of right bronchus or lung
CPT/HCPCS: 80053; 80061; 82043; 82570; 85025

== ENCOUNTER 2024-08-27 15:35 | Outpatient (REF) | payer MEDICARE, SELFPAY ==
[2024-08-27 16:11] LABS: ALT 30 U/L (14-59); AST 20 U/L (15-37); Albumin 3.9 g/dL (3.4-5.0); Alkaline Phosphatase 131 U/L (46-116); Anion Gap 5.7 mmol/L (3-11); BUN 33 mg/dL (7-18); CO2 36.3 mmol/L (21.0-32.0); CREATININE 1.6 mg/dL (0.55-1.02); Chloride 101 mmol/L (98-107); Estimated GFR 33.84 (mL/min/1.73m2); Glucose 129 mg/dL (74-106); Potassium 4.4 mmol/L (3.5-5.1); Sodium 143 mmol/L (136-145); Total Protein 7.9 g/dL (6.4-8.2)
== END 2024-08-27 15:36 | disposition home or self-care (01) ==
LOC: NCHCN 15:35
PROVIDERS: PCP Nurse Practitioner Family; Visit Provider Nurse Practitioner Family
DX: N18.9 Chronic kidney disease, unspecified (principal)
CPT/HCPCS: 80053

== ENCOUNTER 2024-09-04 01:30 | Outpatient (CLI) | payer MEDICARE, SELFPAY ==
--- NOTE | 2024-09-04 12:30 | DI.US_ITS ---
APPROVED REPORT EXAM: Comprehensive 2D, Doppler, and color-flow Echocardiogram Patient Location: Out-Patient Schedule Supervisor: Lester Espinoza RDCS (AE) Indications: Ascending aortic aneurysm Other Information Technically limited study due to body habitus. Conclusion Technically difficult study. The patient is in atrial fibrillation with eruu-xf-rnve variation, mild ly rapid rate Normal left ventricular wall thickness and chamber size. Ejection fraction is 55%. No segmental wal l motion abnormalities are noted Normal right ventricular size and function Left atrium is moderately enlarged. Right atrium is mildly enlarged Aortic valve is sclerotic and trileaflet without stenosis or regurgitation Normal mitral valve with trace regurgitation Estimated right ventricular systolic pressure is 31 mmHg Minimally dilated ascending aorta measuring 3.4 cm Wall motion Left Ventricle The left ventricle is normal size. The left ventricular systolic function is normal. The left ventric ular ejection fraction is within the normal range. There is normal left ventricular wall thickness. T here is normal LV segmental wall motion. There is no ventricular septal defect visualized. LVEF is 55 %. Right Ventricle The right ventricle is normal size. The right ventricular systolic function is normal. Atria Left atrium is moderately dilated. Right atrium is mildly dilated. The interatrial septum is intact w ith no evidence for an atrial septal defect. Aortic Valve The aortic valve is sclerotic Aortic valve is trileaflet. There is no aortic valvular stenosis. No ao rtic regurgitation is present. Mitral Valve The mitral valve is normal in structure. No evidence of mitral valve stenosis. Trace mitral regurgita tion. Tricuspid Valve The tricuspid valve is normal in structure. There is no tricuspid valve stenosis. Mild tricuspid regu rgitation. The RVSP is 31.2 mmHg. Pulmonic Valve The pulmonary valve is normal in structure. There is no pulmonic valvular stenosis. There is no pulmo neo valvular regurgitation. Great Vessels The aortic root is normal in size. The ascending aorta is mildly dilated. Aortic arch is not well vis ualized. IVC is normal in size and collapses >50% with inspiration. Pericardium There is no pericardial effusion. 2D Dimensions IVSD d PLAX 0.66 cm F: 0.6-1.0 Ao Root d 2.73 cm F: 2.7 - 3.3 LVPW d PLAX 0.66 cm F: 0.6 - 1.0 Ao Asc Diam d 3.40 cm F: 2.3 - 3.1 LVID d PLAX 5.64 cm F: 3.8 - 5.2 LVDs 4.01 cm F: 2.2 - 3.5 LV EF Teichholz 55.0 % FS 28.95 % LV EDV (Teich) 156.3 mL LV ESV (Teich) 70.3 mL Stroke Vol Index (Teich) 47.74 M-Mode TAPSE 1.44 cm (M/F) >1.7 Auto EF LV EDV A4C 48.8 mL LV EDV A2C 76.3 mL LV EDV BP 61.5 mL LV ESV A4C 23.3 mL LV ESV A2C 34.2 mL LV ESV BP 27.3 mL LVEF(%) A4C 52.3 % LVEF(%) A2C 55.2 % LVEF(%) BP 55.5 % LV SV A4C 25.5 ml LV SV A2C 42.1 ml LV SV BP 34.1 ml LV CO A4C 1.9 L/min LV CO A2C 3.8 L/min LV CO BP 2.8 L/min HR A4C 75.00 BPM HR A2C 89.11 BPM LV EDV Index (BP) LA Volume LA Length A4C 5.3 cm LA Length A2C 5.8 cm LA Area A4C s 14.47 cm2 LA Area A2C s 20.65 cm2 LA Vol A4C A-L 33.41 mL LA Vol A2C A-L 62.13 mL LA Vol Biplane A-L 47.7 mL LA Vol/BSA A4C A-L LA Vol/BSA A2C A-L LA Vol/BSA BP A-L 26.5 mL/m2 LA Vol A4C MOD 31.8 mL LA Vol A2C MOD 58.3 mL LA Vol BP MOD 44.6 mL RA Volume RA Area A4C 11.5 cm2 RA ESV A4C (A-L) 22.7mL RA Vol/BSA A4C A-L RA Length A4C 4.9 cm RA ESV A4C (MOD) 21.3mL LV Diastology MV E' medial 0.103 (>0.07 m/s) MV E Vmax 0.27 (0.4-1.3 m/s) MV E/E' MED 2.66 (<14) MV A Vmax 0.85 (0.4-1.3 m/s) MV E' lateral 0.082 (>0.1 m/s) E/A Ratio 0.3 MV E/E' LAT 3.32 (<14) MV E' Average 0.092 m/s MV E/E'(average) 2.95 Aortic Valve AoV Vmax 1.28 m/s LVOT Vmax 0.76 m/s AoV Peak Grad 6.5 mmHg LVOT Peak Grad 2.3 mmHg AoV Area (Vmax) 1.50 cm2 LVOT VTI 0.159 m AoV VTI 0.242 m LVOT Mean Grad 1.2 mmHg AoV Mean Crow. 0.91 m/s LVOT SV 39.97 mL AoV Mean Grad 3.7 mmHg LVOT Diam s 1.75 cm AoV Area (VTI) 1.65 cm2 AV Regurg Peak Gr. 6.51 mmHg Velocity Ratio 0.59 Mitral Valve MV DT 115 (160-240 msec) Pulmonary Valve PV Vmax 0.86 (0.5-1.5 m/s) PV Peak Grad 2.9 mmHg PV Mean Crow 0.64 m/s PV Mean Grad 1.8 mmHg Tricuspid Valve RA Pressure 3.00 mmHg TR Vmax 2.65 m/s TR Peak Grad 28.1 mmHg RVSP (TR) 31.2 mmHg
== END 2024-09-04 01:50 ==
LOC: DI 01:30
PROVIDERS: PCP Nurse Practitioner Family; Visit Provider Internal Medicine Cardiovascular Disease
DX: I71.21 Aneurysm of the ascending aorta, without rupture (principal); I35.8 Other nonrheumatic aortic valve disorders
CPT/HCPCS: 93306

== ENCOUNTER → 2024-09-19 11:17 | Outpatient (BNVA) | payer MEDICARE, SELFPAY | PROVIDERS: PCP Nurse Practitioner Family; Referring Provider Nurse Practitioner Family; Visit Provider Physician Assistant Surgical | DX: R91.1 Solitary pulmonary nodule (principal); I27.21 Secondary pulmonary arterial hypertension; J43.8 Other emphysema | CPT/HCPCS: 99214 ==

== ENCOUNTER 2024-11-14 13:27 | Outpatient (REF) | payer MEDICARE, SELFPAY ==
[2024-11-14 14:59] LABS: TSH 1.25 uIU/mL (0.36-3.74); Vitamin D 25 Total 27 ng/mL (30-100)
[2024-11-14 22:35] LABS: Parathyroid Hormone,Intact 105 pg/mL (19-88)
== END 2024-11-14 13:28 | disposition home or self-care (01) ==
LOC: NCHCN 13:27
PROVIDERS: PCP Nurse Practitioner Family; Visit Provider Nurse Practitioner Family
DX: R53.83 Other fatigue (principal); E21.3 Hyperparathyroidism, unspecified
CPT/HCPCS: 82306; 83970; 84443

== ENCOUNTER 2024-11-28 01:50 | Outpatient (CLI) | payer MEDICARE, SELFPAY ==
--- NOTE | 2024-11-28 | DI.US_ITS ---
Exam(s) US THYROID EXAM: US THYROID CLINICAL HISTORY: THYROID NODULE,E04.1. TECHNIQUE: Ultrasound thyroid performed using standard protocol. COMPARISON: US US THYROID from 01/17/2023 FINDINGS: ISTHMUS: 3.3 mm RIGHT LOBE: Size: 4.3 x 2.0 x 1.9 cm Echogenicity: Normal. Vascularity: Normal. Nodules: There again seen right thyroid nodules. There has been no significant change in the solid h ypoechoic nodule in the midpole of the right lobe measuring 1.3 x 0.8 x 1.2 cm. It remains consisten t with a TI rads 5 level nodule. Due to its size, FNA is recommended. Please correlate with patient 's procedural history. There is a stable spongiform nodule in the right lobe. No follow-up is recom mended. LEFT LOBE: Size: 5.2 x 1.9 x 2.0 cm Echogenicity: Normal. Vascularity: Normal. Nodules: There again seen left thyroid nodules. The nodule in the inferior pole was difficult to com pletely characterized on this examination, however it appears grossly unchanged compared to the prior examination. It remains a TI rads 5 level nodule. Due to its size, biopsy is recommended. OTHER FINDINGS: None. IMPRESSION: Stable bilateral thyroid nodules. DATA REPOSITORY:
--- NOTE | 2024-11-28 | DI.RAD_ITS ---
Exam(s) XR THUMB RT EXAM: XR THUMB RT CLINICAL HISTORY: PAIN RT THUMB,M79.644. TECHNIQUE: 2D digital imaging was performed of the right finger. Three views were obtained. PA/AP, oblique, and lateral views were obtained. COMPARISON: No exams were available for comparison FINDINGS: BONES: No acute fracture is present. No bony destructive lesion is seen. JOINTS: No dislocation present. There are mild degenerative changes seen in the right hand character ized by joint space narrowing and osteophytes, including the interphalangeal joint of the thumb and t he 1st CMC joint. SOFT TISSUE: Normal. IMPRESSION: Osteoarthritis of the thumb. DATA REPOSITORY: RADIATION DOSE DELIVERED:
--- NOTE | 2024-11-28 | DI.MAMMO_ITS ---
Exam(s) MAMMO SCREENING EXAM: MAMMO SCREENING CLINICAL HISTORY: SCREENING, Z12.39 TECHNIQUE: Bilateral full field digital CC and MLO mammographic images were obtained with 3D tomosyn thesis and utilizing computer aided detection (CAD). COMPARISON: Available for comparison. FINDINGS: Masses/Architectural Distortion: There is a new 5 mm nodule in the posterior left breast seen on the craniocaudad and MLO view. There are no areas of architectural distortion. No new findings are seen in the right breast. Microcalcifications: No suspicious pleomorphic-type are seen. Skin Thickening/Nipple Retraction: None. IMPRESSION: 1. New 5 mm nodule in the posterior left breast on the cc and MLO views. 2. Spot compression views are requested for further evaluation. Ultrasound may be indicated at that time. BI-RADS Category 0 - Incomplete: Need additional imaging evaluation Breast Density - Category B - There are scattered areas of fibroglandular density. Breast density category C or D implies that the patient has dense breast tissue. Dense breast tissue is very common and is not abnormal but dense breast tissue can make it harder to find cancer on a ma mmogram. Also, dense breast tissue may increase their breast cancer risk. This information about the result of the mammogram report was provided to the patient to raise their awareness. Use this report when you speak with the patient about their risks for breast cancer, which includes their family hist ory. At that time, you may recommend for more screening tests (Ultrasound or MRI) as they might be us eful based on their risk. A negative radiographic report should not delay biopsy if a dominant or clinically suspicious mass is present. Up to ten percent of cancers are not identified on mammography. A negative report may reinforce clinical impression. Adenosis and dense breasts may obscure an underlying neoplasm. False positive reports average 6 to 10%. Patient will receive a letter notifying them of these results.
== END 2024-11-28 02:10 ==
LOC: DI 01:50
PROVIDERS: PCP Nurse Practitioner Family; Visit Provider Nurse Practitioner Family
DX: E04.1 Nontoxic single thyroid nodule (principal); M18.11 Unilateral primary osteoarthritis of first carpometacarpal joint, right hand; Z12.31 Encounter for screening mammogram for malignant neoplasm of breast
CPT/HCPCS: 77063; 77067; 73140; 76536

== ENCOUNTER → 2025-03-25 12:32 | Outpatient (BNVA) | payer MEDICARE, SELFPAY | PROVIDERS: PCP Nurse Practitioner Family; Referring Provider Nurse Practitioner Family; Visit Provider Physician Assistant Surgical | DX: J44.9 Chronic obstructive pulmonary disease, unspecified (principal); R91.1 Solitary pulmonary nodule; I27.21 Secondary pulmonary arterial hypertension; J43.8 Other emphysema; Z87.891 Personal history of nicotine dependence | CPT/HCPCS: 99214 ==

== ENCOUNTER 2025-05-06 02:16 | Outpatient (CLI) | payer MEDICARE, SELFPAY ==
--- NOTE | 2025-05-06 10:11 | DI.RAD_ITS ---
Exam(s) XR HIP LT COMPLETE AP PELVIS EXAM: XR HIP LT COMPLETE AP PELVIS CLINICAL HISTORY: PAIN LEFT HIP M25.552. TECHNIQUE: 2D digital imaging was performed of the left hip. Two views were obtained. AP pelvis and lateral left hip views were obtained. COMPARISON: CR XR HIP RT COMPLETE AP PELVIS from 05/04/2021 FINDINGS: BONES: No acute fracture is present. No bony destructive lesion is seen. JOINTS: No dislocation present. In the left hip there is mild joint space narrowing and both acetabular and femoral head spurring. On the right, there is more prominent spurring of the acetabulum and femoral head. There are mild degenerative changes seen at the sacroiliac joints. Symphysis pubis is intact. SOFT TISSUE: Atherosclerotic calcification is present. IMPRESSION: Degenerative changes of the hips bilaterally. DATA REPOSITORY: RADIATION DOSE DELIVERED:
== END 2025-05-06 02:36 ==
LOC: DI 02:17
PROVIDERS: PCP Nurse Practitioner Family; Visit Provider Nurse Practitioner Family
DX: M16.0 Bilateral primary osteoarthritis of hip (principal)
CPT/HCPCS: 73502

== ENCOUNTER → 2025-05-17 03:30 | Outpatient (CLI) | payer MEDICARE, SELFPAY ==
--- NOTE | 2025-05-17 10:00 | DI.DEXA_ITS ---
Exam(s) XR DEXA BONE DENSITY W/WO SAL EXAM: XR DEXA BONE DENSITY W/WO SAL CLINICAL HISTORY: POST-MENOPAUSAL Z78.0 SECONDARY HYPERPARATHYROIDISM N25.81 TECHNIQUE: Routine DEXA evaluation of the lumbar spine, hip, or forearm. COMPARISON: No exams were available for comparison FINDINGS: Performed on a Hologic unit. Lateral image: No compression fracture evident. Lumbar Spine total T-score: -0.1. This is normal range. Hip total T-score:-1.1. This is osteopenia range. Independent reading at the level of the femoral neck yields T-score of -1.9. This osteopenia range. Forearm total T-score: 1.1. This is within normal range. IMPRESSION: Bone mineral density measures in the osteopenia range for the hip. Fracture risk at this level is moderate. Bone mineral density is in normal range for the lumbar spine and forearm and dust lower risk for fracture at these levels. Note: Any spine fracture indicates 5x risk for subsequent spine fracture and 2x risk for subsequent hip fracture. World Health Organization criteria for BMD interpretation classify patients: Normal...... T- Score at or above -1.0 Osteopenic... T- Score between -1.0 and -2.5 Osteoporosis... T-Score at or below -2.5
== END ==
LOC: DI 03:30
PROVIDERS: PCP Nurse Practitioner Family; Visit Provider Student in an Organized Health Care Education/Training Program
DX: M85.89 Other specified disorders of bone density and structure, multiple sites (principal); Z78.0 Asymptomatic menopausal state
CPT/HCPCS: 77080